=== PATIENT | female | born 1955 | race African-American/Black ===

== ENCOUNTER 2016-11-12 20:24 | Emergency (ER) | payer OTHER ==
[2016-11-12 20:45] VITALS: BMI 20.9
[2016-11-12] MEDS ORDERED: SODIUM CHLORIDE 0.9% 500 ML INFUS.BAG IV ONE ×2 (20:52→23:39)
--- NOTE | 2016-11-12 21:02 | PDOC ---
[id number] No Limitations - History of Present Illness Initial Comments: 11/12/16 22:09 The patient is a 61 year old female with a PMHx of diabetes, HTN, HLD, angina, depression who presents to the ED with fever, vomiting, and muscle aches today. She reports no food or water intake today. She denies taking Motrin or Tylenol for relief. She denies diarrhea, constipation, chest pain, SOB. She denies urinary complaints. PCP: Dr. Juliann Santana <Swathi Salazar - Last Filed: 11/12/16 22:09> <Evangelina Reid - Last Filed: 11/13/16 21:56> - General Chief Complaint: Nausea/Vomiting Stated Complaint: VOMITING/BODY ACHE/LIGHTHEADED Time Seen by Provider: 11/12/16 20:40 Past History <Swathi Salazar - Last Filed: 11/12/16 22:09> - Past Medical History Cardiac Disorders: Yes (ANGINA) Diabetes: Yes HTN: Yes Hypercholesterolemia: Yes Psychiatric Problems: Yes (depression) - Family Disease History Family Disease History: Diabetes: Mother - Immunization History Immunization Up to Date: Yes - Psycho/Social/Smoking Cessation Hx Anxiety: No Suicidal Ideation: No Smoking Status: No Smoking History: Never smoked Have you smoked in the past 12 months: No Number of Cigarettes Smoked Daily: 0 Cigars Per Day: 0 Information on smoking cessation initiated: No Hx Alcohol Use: No Drug/Substance Use Hx: No Substance Use Type: None <Evangelina Reid - Last Filed: 11/13/16 21:56> - Past Medical History Allergies/Adverse Reactions: Allergies Allergy/AdvReac Type Severity Reaction Status Date / Time No Known Drug Allergies Allergy Verified 08/21/16 15:03 lactose AdvReac Verified 08/20/16 20:25 Home Medications: Ambulatory Orders Aspirin [Aspirin EC] 81 mg PO DAILY 07/15/15 Metformin HCl [Glucophage -] 1,000 mg PO BID 07/15/15 Atorvastatin Ca [Lipitor] 20 mg PO HS #30 tablet 12/29/15 Levofloxacin [Levaquin] 500 mg PO DAILY #6 tablet 11/12/16 Review of Systems - Review of Systems Able to Perform ROS?: Yes Comments:: 11/12/16 22:09 GENERAL/CONSTITUTIONAL: + fever. No chills. HEAD, EYES, EARS, NOSE AND THROAT: No change in vision. No ear pain or discharge. No sore throat. CARDIOVASCULAR: No chest pain or shortness of breath. RESPIRATORY: No cough, wheezing, or hemoptysis. GASTROINTESTINAL: + vomiting. No diarrhea or constipation. GENITOURINARY: No dysuria, frequency, or change in urination. MUSCULOSKELETAL: + muscle aches. No joint pain.No neck or back pain. SKIN: No rash NEUROLOGIC: No headache, vertigo, loss of consciousness, or change in strength/ sensation. ENDOCRINE: No increased thirst. No abnormal weight change. HEMATOLOGIC/LYMPHATIC: No anemia, easy bleeding, or history of blood clots. ALLERGIC/IMMUNOLOGIC: No hives or skin allergy. <Swathi Salazar - Last Filed: 11/12/16 22:09> *Physical Exam - Vital Signs Last Vital Signs Temp Pulse Resp BP Pulse Ox 98.8 F 114 H 18 141/82 95 11/12/16 20:42 11/12/16 20:42 11/12/16 20:42 11/12/16 20:42 11/12/16 20:42 - Physical Exam Comments: 11/12/16 22:09 GENERAL: Awake, alert, and fully oriented, in no acute distress HEAD: No signs of trauma EYES: PERRLA, EOMI, sclera anicteric, conjunctiva clear. Left eye cataract. ENT: Auricles normal inspection, hearing grossly normal, nares patent, oropharynx clear without exudates. Moist mucosa NECK: Normal ROM, supple, no lymphadenopathy, JVD, or masses LUNGS: Breath sounds equal, clear to auscultation bilaterally. No wheezes, and no crackles HEART: Tachycardic rate and regular rhythm, normal S1 and S2, no murmurs, rubs or gallops ABDOMEN: Soft, nontender, normoactive bowel sounds. No guarding, no rebound. No masses EXTREMITIES: Normal range of motion, no edema. No clubbing or cyanosis. No cords, erythema, or tenderness NEUROLOGICAL: Cranial nerves II through XII grossly intact. Normal speech, normal gait SKIN: Lipoadenoma on low central back. Warm, Dry, normal turgor, no rashes or lesions noted. <Swathi Salazar - Last Filed: 11/12/16 22:09> - Vital Signs Last Vital Signs Temp Pulse Resp BP Pulse Ox 98.8 F 114 H 18 141/82 95 11/12/16 20:42 11/12/16 20:42 11/12/16 20:42 11/12/16 20:42 11/12/16 20:42 <Evangelina Reid - Last Filed: 11/13/16 21:56> ED Treatment Course - LABORATORY CBC & Chemistry Diagram: 11/12/16 20:20 11/12/16 20:20 - ADDITIONAL ORDERS Additional order review: 11/12/16 20:45 Influenza Types A,B Antigen (ALAYNA) - Final Nasopharyngeal Swab - Final 11/12/16 20:20 RBC 4.15 MCV 89.0 MCHC 33.7 RDW 13.5 MPV 9.8 Neutrophils % 73.6 Lymphocytes % 14.4 D Monocytes % 10.5 H Eosinophils % 0.8 Basophils % 0.7 - Medications Given in the ED: ED Medications Discontinued Medications Generic Name Dose Route Start Last Admin Trade Name Somq PRN Reason Stop Dose Admin Sodium Chloride 1,000 ml 11/12/16 20:52 11/12/16 21:12 Normal Saline - IV 11/12/16 20:53 1,000 ml ONCE ONE Administration <Swathi Salazar - Last Filed: 11/12/16 22:09> - LABORATORY CBC & Chemistry Diagram: 11/12/16 20:20 11/12/16 20:20 <Evangelina Reid - Last Filed: 11/13/16 21:56> Medical Decision Making - Medical Decision Making 11/12/16 21:00 Pt comes with flu like symptoms all day. She ate and drank nothing today. She has DM and HTN. Daughter states that she is usually noncompliant with her meds. Pt is tachycardic and appears weak. Exam is normal. lung sounds are clear. SHe is warm to the touch. Pt took no motrin or tylenol today. She had a flu culture sent from triage. Labs will be checked and pt will be hydrated with 1L NSS. 11/12/16 22:22 Labs are normal. Blood sugar is elevated at 269. SHe is receiving 1L NSS CXR is normal. Flu culture is negative. 11/13/16 21:55 PT IS FEELING BETTER; SHE WAS HYDRATED AND HER FEVER WAS TREATED. SHE STILL REMAINS WITH RAPOD HEART RATE, BUT SHE IS NOT TACHYCARDIC. SHE WILL BE DISCHARGED HOME. DIAGNOSIS: UTI. <Evangelina Reid - Last Filed: 11/13/16 21:56> *DC/Admit/Observation/Transfer - Attestations Scribe Attestion: 11/12/16 22:10 Documentation prepared by Swathi Salazar, acting as medical billing service for Evangelina Reid MD. <Swathi Salazar - Last Filed: 11/12/16 22:09> - Discharge Dispostion Admit: No <Evangelina Reid - Last Filed: 11/13/16 21:56> Diagnosis at time of Disposition: UTI (urinary tract infection), Diabetes - Discharge Dispostion Disposition: HOME Condition at time of disposition: Stable - Prescriptions Prescriptions: Levofloxacin [Levaquin] 500 mg PO DAILY #6 tablet - Referrals Referrals: Juliann Santana MD [Primary Care Provider] - - Patient Instructions Printed Discharge Instructions: DI for Urinary Tract Infection (UTI)
[2016-11-12 21:16] LABS: BASOPHIL 0.7 % (0-2.0); EOSINOPHIL 0.8 % (0-4.5); MCHC 33.7 g/dl (32.0-36.0); MEAN PLT VOLUME 9.8 fl (7.5-11.1); NEUTROPHILS 73.6 % (42.8-82.8); PLATELET COUNT 200 K/MM3 (134-434); RDW 13.5 % (11.6-15.6); WHITE BLOOD COUNT 7.1 K/mm3 (4.0-10.0)
[2016-11-12 22:05] LABS: ANION GAP 11 (8-16); BILIRUBIN,TOTAL 0.8 mg/dL (0.2-1.0); CALCIUM 9.5 mg/dL (8.5-10.1); CO2 28 mmol/L (21-32); CREATININE 0.8 mg/dL (0.55-1.02); GLUCOSE,RANDOM 269 mg/dL (74-106); SGOT/AST 9 U/L (15-37); SGPT/ALT 17 U/L (12-78); TOT PROT 8.4 g/dl (6.4-8.2)
[2016-11-12 22:08] LABS: ALK PHOS 105 U/L (45-117); TROPONIN I < 0.02 ng/ml (0.00-0.05)
[2016-11-12 22:38] LABS: URINE APPEARANCE SLCLOUDY; URINE BILIRUBIN NEGATIVE (NEGATIVE); URINE COLOR LTYELLOW; URINE GLUCOSE (UA) 3+ (NEGATIVE); URINE KETONE 1+ (NEGATIVE); URINE NITRITE NEGATIVE (NEGATIVE); URINE PROTEIN NEGATIVE (NEGATIVE); URINE UROBILINOGEN NEGATIVE E.U./dl (0.2-1.0)
[2016-11-12 22:51] LABS: URINE BACTERIA MANY /hpf (NONE SEEN); URINE BLOOD 1+ (NEGATIVE); URINE LEUK ESTERASE 3+ (NEGATIVE); URINE RBC 3 /hpf (0-3); URINE WBC 72 /hpf (3-5)
[2016-11-12 22:52] LABS: URINE MUCUS MANY
[2016-11-12] MEDS ORDERED: LEVOFLOXACIN 500 MG IVPB 100 ML IVPB ONE ×2 (23:17→23:23)
[2016-11-12] MEDS ORDERED: ACETAMINOPHEN 325 MG TABLET (FP) PO ONE (23:39)
[2016-11-12] MEDS ORDERED: IBUPROFEN 600 MG TABLET (FP) PO ONE (23:39)
[2016-11-13] MEDS ORDERED: IBUPROFEN 600 MG TABLET (FP) PO ONE (00:02)
[2016-11-13] MEDS ORDERED: ACETAMINOPHEN 325 MG TABLET (FP) ONE (00:02)
[2016-11-13] MEDS ORDERED: metFORMIN HCL 500 MG TABLET (FP) PO ONE (00:16)
[2016-11-13] MEDS ORDERED: metFORMIN HCL 500 MG TABLET (FP) ONE (00:19)
[2016-11-13 01:20] VITALS: BP 124/77; PULSE 102; TEMP 98.3
== END 2016-11-13 01:21 | disposition home or self-care (01) ==
LOC: JER 20:24 → SUPCPDRO 20:24 → JER 11-13 01:21
DX: N39.0 Urinary tract infection, site not specified (principal); I20.9 Angina pectoris, unspecified; I10 Essential (primary) hypertension; E11.9 Type 2 diabetes mellitus without complications; Z79.84 Long term (current) use of oral hypoglycemic drugs; E78.00 Pure hypercholesterolemia, unspecified; F32.9 Major depressive disorder, single episode, unspecified
CPT/HCPCS: 36415; 71020-TC; 80053; 81003; 81015; 82550; 84484; 85025; 87804; 96365; 99283-25

== ENCOUNTER 2017-07-31 23:35 | Observation (INO) | payer OTHER ==
--- NOTE | 2017-08-01 01:25 | PDOC ---
History of Present Illness - General History Source: Patient Exam Limitations: No Limitations - History of Present Illness Initial Comments: 08/01/17 02:45 Patient is a 61 year old female with a significant past medical history of Diabetes - non-compliant with medications (does not take levemir, infrequently takes metformin), HTN, h/o, Angina, Depression, Hyperlipidemia, cataracts who presents to the ED with complaints of nausea and vomiting that began tonight at 8pm. As per patient's daughter, patient was found at home at 8pm and was notably unsteady and weak. Patient's daughter states patient fell out of bed while trying to get out but states patient did not hit her head or lose consciousness. She reports patient was experiencing nausea and vomited x3 after walking to the bathroom. Patient reports experiencing intermittent episodes of dizziness and headache secondary to vomiting. Patients duaghter states patient is noncompliant with her medication. Denies chest pain, SOB. Denies contact with sick individuals, out of state travel. Denies fever, chills. Denies any other symptoms. Allergies: Lactose adverse reaction. Social history: No smoking. Social Drinker. No illicit drugs. Surgical history: Left knee surgery PMD: Dr. Juliann Santana. <Yunior Almaguer - Last Filed: 08/01/17 02:45> <Jett Jay - Last Filed: 08/01/17 04:10> - General Chief Complaint: Nausea/Vomiting Stated Complaint: FATIGUE Time Seen by Provider: 08/01/17 01:03 NIH Stroke Scale - Last Known Well Date/Time & Onset Date Last Known Well: 07/31/17 Time Last Known Well: 19:00 - Initial Evaluation Level of consciousness: Alert Ask patient the month and their age: Answers both correctly Ask patient to open & close eyes; make fist and let go: Obeys both correctly Best gaze (horizontal eye movement): Normal Visual field testing: No visual field loss Facial paresis (Show teeth/raise eyebrows/close eyes tight): Minor paralysis ( flattened nasolabial fold, asymmetry on smiling) Motor Function: Left Arm: Normal Motor Function: Right Arm: Normal (extends arm 90 (or 45) degrees for 10 seconds without drift Motor Function: Left Leg: Normal (extends leg 30 degrees for 5 seconds without drift) Motor Function: Right Leg: Drift Limb Ataxia: No ataxia Sensory(Use pinprick test arms,legs,trunk,face/side to side): Normal Best language (Describe picture, name items, read sentences): No Aphasia Dysarthria (read several words): Normal articulation Extinction and Inattention: No abnormality - Total Score NIH Stroke Scale Score: 2 <Jett Jay - Last Filed: 08/01/17 04:10> tPA Exclusion checklist 3-4.5h - Thrombolytic Therapy Candidate Is patient eligible for thrombolytic therapy: No - Relative Exclusion Criteria 3-4.5 hr Rapid improvement: Yes - Ineligibility reason(s) Reasons No tPA given: Outside of window - delayed arrival <Jett Jay - Last Filed: 08/01/17 04:10> Past History <Yunior Almaguer - Last Filed: 08/01/17 02:45> - Past Medical History Cardiac Disorders: Yes (ANGINA) Diabetes: Yes HTN: Yes Hypercholesterolemia: Yes Psychiatric Problems: Yes (depression) - Family Disease History Family Disease History: Diabetes: Mother - Immunization History Immunization Up to Date: Yes - Suicide/Smoking/Psychosocial Hx Smoking Status: No Smoking History: Never smoked Have you smoked in the past 12 months: No Number of Cigarettes Smoked Daily: 0 Cigars Per Day: 0 Information on smoking cessation initiated: No Hx Alcohol Use: No Drug/Substance Use Hx: No Substance Use Type: None <Jett Jay - Last Filed: 08/01/17 04:10> - Past Medical History Allergies/Adverse Reactions: Allergies Allergy/AdvReac Type Severity Reaction Status Date / Time No Known Drug Allergies Allergy Verified 08/01/17 00:36 lactose AdvReac Verified 08/01/17 00:36 Home Medications: Ambulatory Orders Aspirin [ASA -] 81 mg PO DAILY 08/01/17 Atorvastatin Ca [Lipitor] 10 mg PO HS 08/01/17 Metformin HCl [Metformin HCl ER] 1,000 mg PO DAILY 08/01/17 Review of Systems - Review of Systems Constitutional: No: Chills, Fever HEENTM: No: Recent change in vision Respiratory: No: Cough, Shortness of Breath Cardiac (ROS): Yes: Lightheadedness. No: Chest Pain ABD/GI: Yes: Nausea, Vomiting. No: Constipated, Diarrhea Musculoskeletal: Yes: Muscle Weakness Neurological: Yes: Headache, Weakness, Ataxia All Other Systems: Reviewed and Negative <Jett Jay - Last Filed: 08/01/17 04:10> *Physical Exam - Vital Signs Last Vital Signs Temp Pulse Resp BP Pulse Ox 98.3 F 101 H 20 128/78 98 08/01/17 00:37 08/01/17 00:37 08/01/17 00:37 08/01/17 00:37 08/01/17 00:37 - Physical Exam Comments: 08/01/17 02:45 GENERAL: +Last known well 7pm. The patient is awake, alert, and fully oriented, in no acute distress. HEAD: +Slight facial asymmetry. Normal with no signs of trauma. EYES: Pupils equal, round and reactive to light, extraocular movements intact, sclera anicteric, conjunctiva clear with no pallor. ENT: Ears normal, nares patent, oropharynx clear without exudates. Moist mucous membranes. NECK: Normal range of motion, supple without lymphadenopathy, JVD, or masses. LUNGS: Breath sounds equal, clear to auscultation bilaterally. No wheeze/ crackles. HEART: +Slightly tachycardic. Regular rate,normal S1 and S2 without murmur or rub. ABDOMEN: Soft/nontender/nondistended. BS wnl. No guarding or rebound. No palpable masses. No hepatosplenomegaly. EXTREMITIES: +4./5 strength Right lower extremity. Normal range of motion, no edema. No clubbing or cyanosis. No cords, erythema, or tenderness. NEUROLOGICAL: +Slightly shuffled gait. Cranial nerves II through XII grossly intact. Normal speech PSYCH: Normal mood, normal affect. SKIN: Warm, Dry, normal turgor, no rashes or lesions noted. <Yunior Almaguer - Last Filed: 08/01/17 02:45> - Vital Signs Last Vital Signs Temp Pulse Resp BP Pulse Ox 98.3 F 101 H 20 128/78 98 08/01/17 00:37 08/01/17 00:37 08/01/17 00:37 08/01/17 00:37 08/01/17 00:37 <Jett Jay - Last Filed: 08/01/17 04:10> Heart Score/ECG Review #1 ECG reviewed & interpreted by me at: 01:42 General ECG Interpretation: Sinus Rhythm, Normal Rate (104), Normal Intervals ( qtc 449), No acute ischemic changes (T-wave flattening in 1 and aVL, no acute ST changes.) <Jett Jay - Last Filed: 08/01/17 04:10> ED Treatment Course - LABORATORY CBC & Chemistry Diagram: 08/01/17 01:53 08/01/17 01:53 - ADDITIONAL ORDERS Additional order review: Laboratory Results 08/01/17 08/01/17 01:50 01:24 PT with INR 11.10 INR 0.98 Urine Color Straw Urine Appearance Slcloudy Urine pH 6.0 Ur Specific [place] 1.029 Urine Protein Negative Urine Glucose (UA) 3+ H Urine Ketones Negative Urine Blood Negative Urine Nitrite Negative Urine Bilirubin Negative Urine Urobilinogen Negative 08/01/17 01:53 RBC 4.40 MCV 92.2 MCHC 33.7 RDW 13.6 MPV 10.0 Neutrophils % 65.9 Lymphocytes % 28.1 D Monocytes % 4.2 Eosinophils % 0.7 Basophils % 1.1 <Yunior Almaguer - Last Filed: 08/01/17 02:45> - LABORATORY CBC & Chemistry Diagram: 08/01/17 01:53 08/01/17 01:53 - RADIOLOGY Radiology Studies Ordered: Category Date Time Status HEAD CT (STROKE) [CT] Stat CT Scan 08/01/17 01:24 Ordered CHEST PA & LAT [RAD] Stat Radiology 08/01/17 01:25 Ordered <Jett Jay - Last Filed: 08/01/17 04:10> Medical Decision Making - Critical Care Time Total Critical Care Time (minutes): 30 Critical Care Statement: The care of this patient involved high complexity decision making to prevent further life threatening deterioration of the patient 's condition and/or to evaluate & treat vital organ system(s) failure or risk of failure. - Medical Decision Making 08/01/17 02:08 A portion of this note was documented by scribe services under my direction. I have reviewed the details of the note, within reason, and agree with the documentation with the following case summary and management plan written by me. 61-year-old female with history of hypertension and diabetes, no noncompliant with her medications presents brought in by her daughter with several complaints. Patient was last known well around 7 PM, found by her daughter around 8 PM lying in bed, feeling unwell complaining predominantly of dizziness , speech disturbance as per daughter described as fumbling for words but otherwise clear particularly she did, difficulty ambulating with right-sided weakness, and complaint of headache with vomiting 2. Since then, most of the symptoms have improved but now has persistent nausea with headache and some difficulty walking. Vitals as noted, blood pressure is normal Alert seated in stretcher, speaking full sentences Slight right facial asymmetry, slight right leg weakness, shuffling gait Remainder of exam is normal 61-year-old female with hypertension and diabetes but no noncompliance presents with speech/gait/motor disturbance CONCERNING for TIA/CVA. Last known well around 7 PM, so out of window for thrombolysis or code reactivation at this time. Her symptoms compared to report seemed to have significantly improved, now with only subtle right facial and right leg weakness. There was no report of complete hemiparesis to suggest large vessel occlusion that would be amenable to endovascular therapy. Stroke protocol initiated No need for emergent blood pressure control as the patient is currently normotensive Zofran for nausea Admission 08/01/17 03:13 Labs notable for elevated triglycerides, normal troponin. CT head without acute hemorrhage or infarct. Clinically unchanged, given aspirin for presumed TIA, will admit for further stroke evaluation. 08/01/17 04:09 Accepted for obs stroke by Dr. Albarran, signout given to Dr. Trejo. <Jett Jay - Last Filed: 08/01/17 04:10> *DC/Admit/Observation/Transfer - Attestations Scribe Attestion: 08/01/17 02:46 Documentation prepared by Yunior Almaguer, acting as certified medical technician for Jett Jay MD, MD/DO. <Yunior Almaguer - Last Filed: 08/01/17 02:45> - Discharge Dispostion Admit: Yes <Jett Jay - Last Filed: 08/01/17 04:10> Diagnosis at time of Disposition: Ataxia TIA (transient ischemic attack) Qualifiers: Transient cerebral ischemia type: unspecified Qualified Code(s): G45.9 - Transient cerebral ischemic attack, unspecified - Discharge Dispostion Condition at time of disposition: Fair - Referrals Referrals: Juliann Santana MD [Primary Care Provider] - - Patient Instructions - Post Discharge Activity
[2017-08-01 02:24] LABS: BASO % 1.1 % (0-2.0); EOS % 0.7 % (0-4.5); MCH 31.1 pg (25.7-33.7); MCHC 33.7 g/dl (32.0-36.0); MEAN CELL VOLUME 92.2 fl (80-96); NEUT % 65.9 % (42.8-82.8); PLATELET COUNT 198 K/MM3 (134-434); RDW 13.6 % (11.6-15.6); WHITE BLOOD COUNT 10.7 K/mm3 (4.0-10.0)
[2017-08-01 02:29] LABS: URINE APPEARANCE SLCLOUDY; URINE BILIRUBIN NEGATIVE (NEGATIVE); URINE BLOOD NEGATIVE (NEGATIVE); URINE COLOR STRAW; URINE GLUCOSE (UA) 3+ (NEGATIVE); URINE KETONE NEGATIVE (NEGATIVE); URINE NITRITE NEGATIVE (NEGATIVE); URINE PROTEIN NEGATIVE (NEGATIVE); URINE UROBILINOGEN NEGATIVE mg/dL (0.2-1.0)
[2017-08-01 02:36] LABS: INR 0.98 (0.82-1.09); PROTHROMBIN TIME (PATIENT) 11.1 SEC (9.98-11.88)
[2017-08-01 02:48] LABS: ALBUMIN 4.2 g/dl (3.4-5.0); ANION GAP 12 (8-16); CALCIUM 9.7 mg/dL (8.5-10.1); CHOLESTEROL 277 mg/dL (50-200); CO2 26 mmol/L (21-32); CPK 131 IU/L (26-192); CREATININE 1.1 mg/dL (0.55-1.02); SGOT/AST 15 U/L (15-37); SGPT/ALT 22 U/L (12-78)
[2017-08-01 02:52] LABS: ALK PHOS 127 U/L (45-117); BILIRUBIN,TOTAL 0.7 mg/dL (0.2-1.0); TOT PROT 9.1 g/dl (6.4-8.2); TROPONIN I < 0.02 ng/ml (0.00-0.05)
[2017-08-01 02:55] LABS: GLUCOSE,RANDOM 428 mg/dL (74-106)
[2017-08-01] MEDS ORDERED: ASPIRIN 325 MG TABLET PO ONE (03:14)
[2017-08-01] MEDS ORDERED: ASPIRIN COATED 81 MG TABLET.EC ONE (03:25)
[2017-08-01] MEDS ORDERED: ATORVASTATIN CA 80 MG TABLET (FP) PO ONE (04:12)
[2017-08-01] MEDS ORDERED: INSULIN (NOVOLOG) ASPART 100 UNITS/ML 10ML VIAL SQ ONE (04:14)
--- NOTE | 2017-08-01 04:18 | HP ---
CHIEF COMPLAINT: n/v PCP: Dr. Juliann Diaz HISTORY OF PRESENT ILLNESS: 61F w/ hx of HTN, HLD, IDDM, angina, depression, and cataracts who presents with nausea and emesis since this evening. Per patient, she was in her USOH until this evening when she had 4 episodes of NBNB emesis leading to lightheadedness and a headache. She reports that she was laying in bed during this when her daughter came home who noticed that she looked ill. When the pt got out of bed to walk to the bathroom, pt reports that she fell extremely lightheaded and weak causing her to slump down, but her daughter caught her before she fell to the ground. There was no trauma to any part of her body and no LOC. Pt states that her daughter noticed that she was talking incoherently during this episode, and this resolved in several minutes. She denies any focal weakness or numbness, fever, chills, sick contacts, recent travel, consuming spoiled or uncooked foods, chest pain, SOB, abdominal pain, diarrhea, constipation, and dysuria. She endorses polyuria, polydipsia, exertional dyspnea (can walk 1 flight of stairs and 3 city blocks). Pt reports being non-compliant with her medications. She denies any hx of strokes. ER course was notable for: (1) physical exam significant for facial asymmetry and RLE weakness (2) pt given ASA (3) labs, imaging Recent Travel: denies PAST MEDICAL HISTORY: HTN, HLD, IDDM, angina, depression, and cataracts PAST SURGICAL HISTORY: L foot surgery Social History: Smoking: denies Alcohol: social Drugs: denies Family History: mom- DM maternal aunt- DM Allergies No Known Drug Allergies Allergy (Verified 08/01/17 00:36) lactose Adverse Reaction (Verified 08/01/17 00:36) HOME MEDICATIONS: Home Medications Medication Instructions Recorded Aspirin [ASA -] 81 mg PO DAILY 08/01/17 Atorvastatin Ca [Lipitor] 10 mg PO HS 08/01/17 Metformin HCl [Metformin HCl ER] 1,000 mg PO DAILY 08/01/17 REVIEW OF SYSTEMS CONSTITUTIONAL: Absent: fever, chills, diaphoresis, generalized weakness, malaise, loss of appetite, weight change HEENT: Absent: rhinorrhea, nasal congestion, throat pain, throat swelling, difficulty swallowing, mouth swelling, ear pain, eye pain, visual changes CARDIOVASCULAR: Absent: chest pain, syncope, palpitations, irregular heart rate, peripheral edema Present: lightheadedness RESPIRATORY: Absent: cough, shortness of breath, orthopnea, wheezing, stridor, hemoptysis Present: dyspnea with exertion GASTROINTESTINAL: Absent: abdominal pain, abdominal distension, diarrhea, constipation, melena, hematochezia Present: nausea, vomiting GENITOURINARY: Absent: dysuria, urgency, hesitancy, hematuria, flank pain, genital pain Present: frequency MUSCULOSKELETAL: Absent: myalgia, arthralgia, joint swelling, back pain, neck pain SKIN: Absent: rash, itching, pallor HEMATOLOGIC/IMMUNOLOGIC: Absent: easy bleeding, easy bruising, lymphadenopathy, frequent infections ENDOCRINE: Absent: unexplained weight gain, unexplained weight loss, heat intolerance, cold intolerance NEUROLOGIC: Absent: focal weakness or paresthesias, seizure, mental status changes, bladder or bowel incontinence Present: dizziness, headache, unsteady gait PSYCHIATRIC: Absent: anxiety, depression, suicidal or homicidal ideation, hallucinations. PHYSICAL EXAMINATION Vital Signs - 24 hr 08/01/17 00:37 Temperature 98.3 F Pulse Rate 101 H Respiratory 20 Rate Blood Pressure 128/78 O2 Sat by Pulse 98 Oximetry (%) GENERAL: Awake, alert, and fully oriented, in no acute distress. HEAD: Normal with no signs of trauma. EYES: Pupils equal, round and reactive to light, extraocular movements intact, sclera anicteric, conjunctiva clear. No lid lag. EARS, NOSE, THROAT: Ears normal, nares patent, oropharynx clear without exudates. Moist mucous membranes. NECK: Normal range of motion, supple without lymphadenopathy, JVD, or masses. LUNGS: Breath sounds equal, clear to auscultation bilaterally. No wheezes, and no crackles. No accessory muscle use. HEART: tachycardic, normal rhythm, diastolic murmur heard loudest over left upper sternal border ABDOMEN: Soft, nontender, not distended, normoactive bowel sounds, no guarding, no rebound, no masses. No hepatomegaly or splenomegaly. MUSCULOSKELETAL: Normal range of motion at all joints. No bony deformities or tenderness. No CVA tenderness. UPPER EXTREMITIES: 2+ pulses, warm, well-perfused. No cyanosis. No clubbing. No peripheral edema. LOWER EXTREMITIES: 2+ pulses, warm, well-perfused. No calf tenderness. No peripheral edema. NEUROLOGICAL: Cranial nerves II-XII intact, no facial asymmetry, tongue midline. AAOx3. Normal speech. strength 4/5 in b/l LE hip extension and knee extension. All other muscles 5/5. sensory function to touch intact and equal b/ l. no arm drift. no dysdiadochokinesia. finger to nose test normal b/l. PSYCHIATRIC: Cooperative. Good eye contact. Appropriate mood and affect. SKIN: Warm, dry, normal turgor, no rashes or lesions noted, normal capillary refill. Laboratory Results - last 24 hr 08/01/17 08/01/17 08/01/17 01:24 01:50 01:53 WBC 10.7 H D RBC 4.40 Hgb 13.7 D Hct 40.5 MCV 92.2 MCH 31.1 MCHC 33.7 RDW 13.6 Plt Count 198 MPV 10.0 Neutrophils % 65.9 Lymphocytes % 28.1 D Monocytes % 4.2 Eosinophils % 0.7 Basophils % 1.1 PT with INR 11.10 INR 0.98 Sodium Potassium Chloride Carbon Dioxide Anion Gap BUN Creatinine Creat Clearance w eGFR Random Glucose Calcium Total Bilirubin AST ALT Alkaline Phosphatase Creatine Kinase Troponin I Total Protein Albumin Triglycerides Cholesterol Total LDL Cholesterol HDL Cholesterol Urine Color Straw Urine Appearance Slcloudy Urine pH 6.0 Ur Specific [place] 1.029 Urine Protein Negative Urine Glucose (UA) 3+ H Urine Ketones Negative Urine Blood Negative Urine Nitrite Negative Urine Bilirubin Negative Urine Urobilinogen Negative 08/01/17 01:53 WBC RBC Hgb Hct MCV MCH MCHC RDW Plt Count MPV Neutrophils % Lymphocytes % Monocytes % Eosinophils % Basophils % PT with INR INR Sodium 132 L Potassium 4.5 Chloride 94 L Carbon Dioxide 26 Anion Gap 12 BUN 16 D Creatinine 1.1 H D Creat Clearance w eGFR 50.33 Random Glucose 428 H* D Calcium 9.7 Total Bilirubin 0.7 AST 15 D ALT 22 D Alkaline Phosphatase 127 H D Creatine Kinase 131 Troponin I < 0.02 Total Protein 9.1 H Albumin 4.2 Triglycerides 206 H D Cholesterol 277 H D Total LDL Cholesterol 190 H HDL Cholesterol 60 Urine Color Urine Appearance Urine pH Ur Specific [place] Urine Protein Urine Glucose (UA) Urine Ketones Urine Blood Urine Nitrite Urine Bilirubin Urine Urobilinogen CT head: no acute hemorrhage EKG: sinus tachycardia, QTc of 449 ASSESSMENT/PLAN: 61F w/ hx of DM, HTN, angina, depression, HLD, and cataracts who presented with N/V, lightheadedness, headache, and fall who was found to have facial droop and RLE weakness in ED, tachycardia, mild leukocytosis w/o left shift, mild hyponatremia, and hyperglycemia. #neurologic sxs -R/O CVA/TIA -head ct shows no acute hemorrhage -EKG shows sinus tachycardia -neurology on board, Dr. Gayle, f/u recs -pt given ASA 325 and lipitor 80 -f/u TTE, carotid doppler, MRI brain w/o contrast, a1c, lipid panel, TFT, troponin -obtain prior carotid doppler from PCP -speech and swallow consulted, f/u recs -neuro checks q4h -monitor BP #hyponatremia -Na of 132 -gentle hydration -trend sodium #DM -pt reported to be non-compliant with home meds -glucose level of 428 here -BGM and ISS ACHS -f/u a1c #mild CELSO -unclear etiology -creatinine of 1.1 -gentle hydration -trend creatinine -f/u urine sodium and creatinine, calculate FeNa #elevated protein gap -gap of 4.9 -unclear etiology -monitor -normal calcium #nausea -zofran PRN #HTN -pt does not know home meds -monitor #HLD -on lipitor 10 at home -lipitor 80 given in hospital #hx of angina -continue ASA #FEN/ppx -gentle hydration -replete Na and Cl -NPO for now pending speech and swallow -no GI ppx indicated -SCDs #Dispo- admit to observation telemetry #Confirm all home meds as pt unable to repeat all home meds -Dariel Arias MD PGY1 Visit type - Emergency Visit Emergency Visit: Yes ED Registration Date: 08/01/17 Care time: The patient presented to the Emergency Department on the above date and was hospitalized for further evaluation of their emergent condition. - New Patient This patient is new to me today: Yes Date on this admission: 08/01/17 - Critical Care Critical Care patient: No
[2017-08-01] MEDS ORDERED: ONDANSETRON 4 MG/2 ML VIAL IVPUSH PRN ×2 (04:36→05:09)
--- NOTE | 2017-08-01 04:49 | PN ---
Teaching Attending Note Name of Resident: Dariel Arias ATTENDING PHYSICIAN STATEMENT I saw and evaluated the patient. I reviewed the resident's note and discussed the case with the resident. I agree with the resident's findings and plan as documented. SUBJECTIVE: 61 F wih pmhx of DM(non-complaint), CVA/TIA sveral years ago,HTN, angina, Depression, cataracts, hld, who was found at home confused by daughter. She states her mother was nausous and vomited food/bile X3, Daughter witnessed her falling out of bed, and notes she did not hit her head. Pt. states she does not take any of her meds regularly. Daughter also noted her right hand was weak. No chest pain or pressure. No headaches or dizziness. No fevers. OBJECTIVE: Physical: VS: Vital Signs Period Temp Pulse Resp BP Sys/Hidalgo Pulse Ox Last 24 Hr 98.3 F 101 20 128/78 98 GEN: NAD, AA0X3, Able to speak full sentences HEENT: NCAT, PERRL throat without erythema or exudates CARD: RRR S1,S2 RESP: CTAB ABD: BSx4, NTD to palpation EXT: - C/C/E NEURO: MS +5/5, CN II- XII intact CBCD WBC 10.7 K/mm3 (4.0-10.0) H D 08/01/17 01:53 RBC 4.40 M/mm3 (3.60-5.2) 08/01/17 01:53 Hgb 13.7 GM/dL (10.7-15.3) D 08/01/17 01:53 Hct 40.5 % (32.4-45.2) 08/01/17 01:53 MCV 92.2 fl (80-96) 08/01/17 01:53 MCHC 33.7 g/dl (32.0-36.0) 08/01/17 01:53 RDW 13.6 % (11.6-15.6) 08/01/17 01:53 Plt Count 198 K/MM3 (134-434) 08/01/17 01:53 MPV 10.0 fl (7.5-11.1) 08/01/17 01:53 CMP Sodium 132 mmol/L (136-145) L 08/01/17 01:53 Potassium 4.5 mmol/L (3.5-5.1) 08/01/17 01:53 Chloride 94 mmol/L (98-107) L 08/01/17 01:53 Carbon Dioxide 26 mmol/L (21-32) 08/01/17 01:53 Anion Gap 12 (8-16) 08/01/17 01:53 BUN 16 mg/dL (7-18) D 08/01/17 01:53 Creatinine 1.1 mg/dL (0.55-1.02) H D 08/01/17 01:53 Creat Clearance w eGFR 50.33 (>60) 08/01/17 01:53 Random Glucose 428 mg/dL (74-106) H* D 08/01/17 01:53 Calcium 9.7 mg/dL (8.5-10.1) 08/01/17 01:53 Total Bilirubin 0.7 mg/dL (0.2-1.0) 08/01/17 01:53 AST 15 U/L (15-37) D 08/01/17 01:53 ALT 22 U/L (12-78) D 08/01/17 01:53 Alkaline Phosphatase 127 U/L (45-117) H D 08/01/17 01:53 Total Protein 9.1 g/dl (6.4-8.2) H 08/01/17 01:53 Albumin 4.2 g/dl (3.4-5.0) 08/01/17 01:53 CARDIAC ENZYMES Creatine Kinase 131 IU/L (26-192) 08/01/17 01:53 Troponin I < 0.02 ng/ml (0.00-0.05) 08/01/17 01:53 EKG: Sinus Rhythm 104, qtc 449, no St-t changes Home Medications Medication Instructions Recorded Aspirin [ASA -] 81 mg PO DAILY 08/01/17 Atorvastatin Ca [Lipitor] 10 mg PO HS 08/01/17 Metformin HCl [Metformin HCl ER] 1,000 mg PO DAILY 08/01/17 ASSESSMENT AND PLAN: 61 F wih pmhx of DM(non-complaint), CVA/TIA sveral years ago,HTN, angina, Depression, cataracts, hld,who presents with right arm weakness being admitted for CVA/TIA. 1.) Right Arm Weakness - RO CVA/TIA - ASA - Statin- High Dose - Echo/ (carotid done outpt <2 months ago) - Trend Trop/Ekg - MRI Brain wo con - TSH - Monitor on tele - Lipid panel/ A1C 2.) Uncontrolled DM - FS - RAISS - Diabetic diet - A1c - C/W Metformin 3.) HLD - High dose Statin 4.) Hyponatremia - Mild - Trend 5.) Dvt Ppx - SCDs Place in Obs-Tele
[2017-08-01] MEDS: INSULIN SLIDING SCALE (NOVOLOG) 1 VIAL SQ SCH ×5 (05:00→22:02)
[2017-08-01] MEDS ORDERED: ASPIRIN 325 MG TABLET ONE (05:28)
[2017-08-01] MEDS ORDERED: INSULIN (NOVOLOG) ASPART 100 UNITS/ML 10ML VIAL ONE ×2 (05:29→13:01)
[2017-08-01] MEDS ORDERED: ATORVASTATIN CA 80 MG TABLET (FP) ONE (05:29)
[2017-08-01] MEDS: SODIUM CHLORIDE 1,000 ML IV SCH ×2 (05:50→18:42)
[2017-08-01 09:42] LABS: BASO % 0.7 % (0-2.0); EOS % 1.3 % (0-4.5); MCH 30.3 pg (25.7-33.7); MCHC 33.3 g/dl (32.0-36.0); MEAN PLT VOLUME 9.4 fl (7.5-11.1); NEUT % 43.7 % (42.8-82.8); PLATELET COUNT 251 K/MM3 (134-434); RDW 13.2 % (11.6-15.6)
[2017-08-01] MEDS ORDERED: ASPIRIN 81 MG CHEWABLE TABLETS PO SCH (10:00)
[2017-08-01 10:10] LABS: ALBUMIN 3.6 g/dl (3.4-5.0); ANION GAP 7 (8-16); CALCIUM 9.2 mg/dL (8.5-10.1); CO2 29 mmol/L (21-32); CREATININE 0.7 mg/dL (0.55-1.02); GLUCOSE,RANDOM 88 mg/dL (74-106); SGOT/AST 8 U/L (15-37); SGPT/ALT 18 U/L (12-78)
[2017-08-01 10:15] LABS: ALK PHOS 97 U/L (45-117); BILIRUBIN,TOTAL 0.6 mg/dL (0.2-1.0); TOT PROT 7.8 g/dl (6.4-8.2); TROPONIN I < 0.02 ng/ml (0.00-0.05)
[2017-08-01 10:45] LABS: URINE LEUK ESTERASE 1+ (NEGATIVE)
[2017-08-01 12:39] LABS: YEAST MANY
[2017-08-01 13:10] VITALS: BMI 23.8
--- NOTE | 2017-08-01 15:21 | CONSULT ---
Admitting History and Physical - Primary Care Physician PCP: Shirlene Wall - Admission History of Present Illness: Per EMR: 61F w/ hx of DM, HTN, angina, depression, HLD, and cataracts who presented with N/V, lightheadedness, headache, and fall who was found to have facial droop and RLE weakness in ED, tachycardia, mild leukocytosis w/o left shift, mild hyponatremia, and hyperglycemia. 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 (chronic intermittent lightheadedness (x 1 year)) Cardiovascular: Yes: CAD, HTN, Hyperlipdemia, Other (angina) Pulmonary: No: Asthma, Bronchitis, Cancer, COPD, O2 Dependent, Pneumonia, Previously Intubated, Pulmonary Embolus, Pulmonary Fibrosis, Sleep Apnea, Other Psych: Yes: Depression ENT: Yes: Other (blind left eye) Endocrine: Yes: Diabetes Mellitus - Past Surgical History Past Surgical History: Yes: None - Smoking History Smoking history: Never smoked Have you smoked in the past 12 months: No Aproximately how many cigarettes per day: 0 - Alcohol/Substance Use Hx Alcohol Use: No History - Admission Reason For Visit: ATAXIA, TIA (STROKE FLOOR ADMISSION) - Diagnostics X-ray: Report Reviewed CT Scan: Report Reviewed MRI: Report Reviewed (m/v changes) - General Mental Status: Alert and Oriented, Awake and Alert, Able to Follow Commands Attention: Intact - Hearing Hearing: Normal Speech Evaluation - Communication Primary Language: AMHARIC Communication: Yes: Within Normal Limits Oral Expression Ability: Yes: No Impairment - Speech Production Able to Make Needs Known: Yes: WNL Intelligibility: Yes: WNL - Speech Characteristics Voice Loudness: Normal Voice Pitch: Yes: Normal Voice Phonatory-based Quality: Yes: Normal Speech Pattern: Normal Speech Clarity: < 100% Nasal Resonance: Normal Articulation: Yes: Precise Rate of Speech: Intact - Language/Auditory Comprehension Follows: Yes: 2 Stage Simple Commands - Language/Verbal Expression Able to Respond to Simple Queries: Yes: WNL Able to Communicate Wants and Needs: Yes: WNL Functional Communication Status: Yes: WNL Attention: Yes: Intact - Memory/Perception intermediate card tender Memory: Yes: WNL Short Term Memory: Yes: WNL - Swallow Evaluation/Bedside Assessment Current Nutritional Intake: Regular (tolerated lunch), Thin Liquids Oral Secretions: Yes: WFL Dentition: Yes: Adequate (lower), Edentulous (upper) Facial Symmetry at Rest: Symmetrical Facial Symmetry on Retraction: Symmetrical Against Resistance Closing: Normal Pucker Lips: Normal Smile: Normal Lingual Movement: Deviates Left (mild) Lingual Speed of Movement: Normal Lingual Movement Strgth Against Opposition: Normal Lingual Movement Characteristics: Normal Velopharyngeal Movement: Normal Laryngeal Elevation: WFL Laryngeal Movement: Able to Palpate Rate of Intake: WFL Bolus Size: WFL Labial Seal: WFL Chewing: Impaired (limited due to missing dentition) Oral Prep Time: Increased A-P Transit: WFL Pocketing: None Timing of Swallow: WFL Coughing/Throat Clear: No Change in Voice: No Recommendations - Speech Evaluation, Impression/Plan Impression: Sp/language/swallowing/cognition intact - Dysphagia Impressions/Plan Dysphagia Impressions: Mild Impairment (mastication limited due to missing dentition.) *Silent aspiration: cannot be R/O at bedside Recommendations: Neuro Consult (pending) - Recommendations Diet Consistency: Regular (soft, easy to chew. Chopped meats.) Medication Administration: Whole with water Liquids: Thin Liquids
--- NOTE | 2017-08-01 17:28 | EKG ---
Test Reason : Blood Pressure : / mmHG Vent. Rate : 104 BPM Atrial Rate : 104 BPM P-R Int : 170 ms QRS Dur : 076 ms QT Int : 342 ms P-R-T Axes : 068 030 054 degrees QTc Int : 449 ms SINUS TACHYCARDIA POSSIBLE LEFT ATRIAL ENLARGEMENT NONSPECIFIC T WAVE ABNORMALITY ABNORMAL ECG WHEN COMPARED WITH ECG OF 15-AUG-2016 07:52, NO SIGNIFICANT CHANGE WAS FOUND Confirmed by WALTER CASILLAS MD ([id number]) on 08/01/2017 5:28:05 PM Referred By: Confirmed By:WALTER CASILLAS MD
--- NOTE | 2017-08-01 21:03 | CONSULT ---
Consult - text type - Consultation Consultation Note: NEUROLOGY CONSULTATION is greatly appreciated: This 61 yo RH woman with h/o HTN, DN, Chol and ASHD is said to be s/p "CVA/TIA. " Maintained on Atorvastatin, Insulins, Metformen but is noted to be non- compliant. Admitted after falling out of bed this morning and being found on floor by family with c/o Headache, dizziness, nausea and vomiting. In ER Xecdpes=496 mg%, Ibyo=884. WBC=10.7 K and UA sig for [address] of head (reviewed): Unremarkable. MRI of brain (reviewed): Cavum septum pellucidum; mild atrophy; diffuse, subcortical microvascular leukoencephalopathy. Carotid duplex dopplers: Moderate B/L plaque without significant hemodynamic changes. Now, Nausea has resolved. Still feels mild, pressing headache and is unsure on her feet. [place]: No bruits. Cor: Reg No evidence of external head trauma. Multiple BP's are all 150/90 NEURO: Awake alert. Ox 3. Fluent speech CN II-XII: normal without Nystagmus. Motor: No drift or tremor. Normal strength, bulk tone. Normal reflexes except absent AJ's. Toes downgoing. Coord: Normal FTN and HTS testing B/L. Sensory: Reduced vibration in the feet. Gait: Sl wide-based and shortened strides. IMP: Non-focal neurological exam. Diabetic peripheral neuropathy Toxic-metabolic encephalopathy due to hyperglycemia possibly induced by UTI + non-compliance with meds. Extensive, antecedent, microvascular white matter changes on the MRI (Not in a distribution suggesting demyelinating disease). Moderate, B/L carotovascular disease SUGGEST: Control glucose and Rx UTI. Please Rx BP with BP goal of normal BP 110-120/70-80 TSH is normal. Check B12 ASA 81 mg +/- Clopidogrel. Repeat Carotid doppler in 1 year. Agree with telemetry. Consider cardiology consultation. Thank you very much, Tom Gayle MD
[2017-08-01] MEDS ORDERED: ATORVASTATIN CA 80 MG TABLET (FP) PO SCH (22:00)
[2017-08-01] MEDS ORDERED: ATORVASTATIN CA 10 MG TABLET (FP) PO SCH (22:00)
[2017-08-02] MEDS: INSULIN SLIDING SCALE (NOVOLOG) 1 VIAL SQ SCH ×2 (06:36→11:44)
[2017-08-02] MEDS ORDERED: ASPIRIN 325 MG ENTERIC COATED TABLET (FP) PO SCH (10:00)
[2017-08-02 10:20] VITALS: BP 121/77; PULSE 94; TEMP 98.2
[2017-08-02] MEDS ORDERED: LISINOPRIL 5 MG TABLET (FP) PO SCH (10:45)
[2017-08-02] MEDS: SODIUM CHLORIDE 1,000 ML IV SCH (11:00)
--- NOTE | 2017-08-02 12:48 | DS ---
Physical Exam: SUBJECTIVE: Patient seen and examined. She denies cp, nausea, vomiting. She is aware she needs to take her medications. OBJECTIVE: Vital Signs Period Temp Pulse Resp BP Sys/Hidalgo Pulse Ox Last 24 Hr 97.7 F-98.5 F 85-111 18-20 117-148/65-88 98-99 PE Neuro: alert, awake, cn 2-12intact Pulm: CTAB CV: s1 s2 rrr nomrg Abd: s nt nd +bs Ext: warm, no le edema Msk: lower ext tenderness Laboratory Results - last 24 hr 08/01/17 08/01/17 08/01/17 13:00 18:00 21:59 POC Glucometer 359.55196 293 Ur Random Sodium 94 Urine Creatinine 162.0 08/02/17 08/02/17 05:58 11:32 POC Glucometer 260 301 Ur Random Sodium Urine Creatinine HOSPITAL COURSE: Date of Admission:08/01/17 Date of Discharge: 08/02/17 Minutes to complete discharge: 37 Discharge Summary Reason For Visit: ATAXIA, TIA (STROKE FLOOR ADMISSION) Current Active Problems Ataxia (Acute) TIA (transient ischemic attack) (Acute) Hospital Course: Initial Hospital Course: 61 female with pmhx of DM (non-complaint w/ meds), CVA/TIA several years ago,HTN , angina, depression, cataracts, hld, found at home confused by daughter. Daughter reported her mother was nauseous and vomited food/bile X3, Daughter witnessed her falling out of bed, she did not hit her head. Pt. stated she does not take any of her meds regularly. Daughter also noted her right hand was weak. Imaging: - MRI of brain: Cavum septum pellucidum; mild atrophy; diffuse, subcortical microvascular leukoencephalopathy. - Carotid duplex dopplers: Moderate B/L plaque without significant hemodynamic changes Subsequent Hospital Course/Progress Note/DC summary: 1. Pre syncope/weakness - Likely due to Nausea/vomiting - Extensive mircovascular changes on MRI - TSH wnl, b12 wnl - ASA daily 2. UA - Asymptomatic on exam - Will defer treatment at this time, absence of white count, fever, infectious symptoms 3. HTN - Started lisinopril 5mg daily (DM II) 4. DM II, uncontrolled - Discussed importance of medication adherence - Will hold on starting second agent, pt will need to take metformin 1000 ER regularly and check hgb a1c in 3months - [facility] referral made - Pt aware and daughter at bedside, stated she will take her medication Dispo: - Home with above meds and plan - [facility] referral made Condition: Stable - Instructions Diet, Activity, Other Instructions: Please return to the ED for any new, persistent, or worsening symptoms. Follow up with your PCP in 1 week Take new and regular medications as directed on home discharge list Referrals: Juliann Santana MD [Primary Care Provider] - Tom Gayle MD [Staff Physician] - Disposition: [facility]/HOME HEALTH CARE - Home Medications Comprehensive Discharge Medication List: Ambulatory Orders Aspirin [ASA -] 81 mg PO DAILY 08/01/17 Metformin HCl [Metformin HCl ER] 1,000 mg PO DAILY 08/01/17 Atorvastatin Ca [Lipitor] 40 mg PO HS #30 tablet 08/02/17 Lisinopril [Prinivil] 5 mg PO DAILY #30 tablet 08/02/17 This patient is new to me today: Yes Date on this admission: 08/02/17 Emergency Visit: Yes ED Registration Date: 08/01/17 Care time: The patient presented to the Emergency Department on the above date and was hospitalized for further evaluation of their emergent condition. Critical Care patient: No - Discharge Referral Referred to [facility] No
== END 2017-08-02 17:37 | disposition home health service (06) ==
LOC: JER 23:35 → JERBED 08-01 04:10 → UNDOADMOB 08-01 04:27 → J4W 08-01 18:10
PROVIDERS: ADMIT Internal Medicine; ATTEND Nurse Practitioner Acute Care
PROC: 3E013VG Introduction of Insulin into Subcutaneous Tissue, Percutaneous Approach (ICD-10-PCS; principal; 2017-08-01)
PROC: 3E0337Z Introduction of Electrolytic and Water Balance Substance into Peripheral Vein, Percutaneous Approach (ICD-10-PCS; 2017-08-01)
DX: R27.0 Ataxia, unspecified (principal); E87.1 Hypo-osmolality and hyponatremia; N17.9 Acute kidney failure, unspecified; R77.1 Abnormality of globulin; I10 Essential (primary) hypertension; E78.5 Hyperlipidemia, unspecified; E11.42 Type 2 diabetes mellitus with diabetic polyneuropathy; E11.65 Type 2 diabetes mellitus with hyperglycemia; Z79.4 Long term (current) use of insulin; Z79.84 Long term (current) use of oral hypoglycemic drugs; Z91.14 Patient's other noncompliance with medication regimen; Z91.011 Allergy to milk products; Z79.82 Long term (current) use of aspirin; Z86.79 Personal history of other diseases of the circulatory system; Z86.73 Personal history of transient ischemic attack (TIA), and cerebral infarction without residual deficits; G92 Toxic encephalopathy
CPT/HCPCS: 36415; 70450-TC; 70551-TC; 71020-TC; 80053; 81003; 81015; 82465; 82550; 82570; 82607; 83036; 83718; 83721; 83735; 84100; 84300; 84443; 84478; 84484; 85025; 85610; 86850; 86900; 86901; 93005; 93010; 93306-TC; 93880-TC; 96372; 97116-GP; 97161-GP; 99285-25; G0378

== ENCOUNTER 2017-11-29 13:45 | Emergency (ER) | payer OTHER ==
[2017-11-29 13:52] VITALS: TEMP 97.6; BMI 21.2
--- NOTE | 2017-11-29 14:05 | PDOC ---
History of Present Illness - General Chief Complaint: Revisit, Lab Variance Stated Complaint: PCP SENT Time Seen by Provider: 11/29/17 14:01 - History of Present Illness Initial Comments: 11/29/17 14:03 62 yo F with h/o HTN, HLD, IDDM ( non adherent), IA, CVA/TIA, and left eye blindness who arrives from outside office with nausea. Arrives from outside office Dr. Juliann Santana DIRECTOR STAFFING ( Mariama Griggs) with concern of DKA given A1C ( 12.8 on ), and poorly controlled DM. Patient reports fatigue and nausea without vomiting over the past 2-3 days. Also endorses one day of lightheadedness, with no asx. weakness, or vertiginous symptoms, increased urinary frequency. No identifiable triggers or alleviators. Patient denies F/C, CP, SOB, abdominal pain, dysuria, diarrhea, constipation, weakness, LOC, sensory changes. Pt. states that medication non adherence is d/t recent insurance coverage discontinuation for 1-2 months and today insurance was resumed. Pt. states that PCP did not draw labs today. Past History - Past Medical History Allergies/Adverse Reactions: Allergies Allergy/AdvReac Type Severity Reaction Status Date / Time No Known Drug Allergies Allergy Verified 11/29/17 13:48 lactose AdvReac Verified 11/29/17 13:48 Home Medications: Ambulatory Orders Aspirin [ASA -] 81 mg PO DAILY 08/01/17 Metformin HCl [Metformin HCl ER] 1,000 mg PO DAILY 08/01/17 Atorvastatin Ca [Lipitor] 40 mg PO HS #30 tablet 08/02/17 Lisinopril [Prinivil] 5 mg PO DAILY #30 tablet 08/02/17 Insulin (Levemir) [Levemir Flexpen -] 15 units SQ DAILY #1 pen 08/12/17 levoFLOXacin [Levaquin -] 250 mg PO ONCE #4 tablet MDD 1 tab 11/29/17 Cardiac Disorders: Yes (ANGINA) COPD: No Diabetes: Yes HTN: Yes Hypercholesterolemia: Yes Psychiatric Problems: Yes (depression) - Family Disease History Family Disease History: Diabetes: Mother - Immunization History Immunization Up to Date: Yes - Suicide/Smoking/Psychosocial Hx Smoking Status: No Smoking History: Never smoked Have you smoked in the past 12 months: No Number of Cigarettes Smoked Daily: 0 Cigars Per Day: 0 Hx Alcohol Use: No Drug/Substance Use Hx: No Substance Use Type: None Review of Systems - Review of Systems Comments:: 11/29/17 14:04 GENERAL/CONSTITUTIONAL: No fever or chills. No weakness. HEAD, EYES, EARS, NOSE AND THROAT: No change in vision. No ear pain or discharge. No sore throat.- CARDIOVASCULAR: No chest pain or shortness of breath RESPIRATORY: No cough, wheezing, or hemoptysis. GASTROINTESTINAL: + nausea, without vomiting. No diarrhea or constipation. GENITOURINARY: No dysuria, frequency, or change in urination. MUSCULOSKELETAL: No joint or muscle swelling or pain. No neck or back pain. SKIN: No rash NEUROLOGIC: + lightheadeness. No headache, vertigo, loss of consciousness, or change in strength/sensation. ENDOCRINE: No increased thirst. No abnormal weight change HEMATOLOGIC/LYMPHATIC: No anemia, easy bleeding, or history of blood clots. ALLERGIC/IMMUNOLOGIC: No hives or skin allergy. = *Physical Exam - Vital Signs Last Vital Signs Temp Pulse Resp BP Pulse Ox 97.6 F 110 H 22 159/92 100 11/29/17 13:49 11/29/17 13:49 11/29/17 13:49 11/29/17 13:49 11/29/17 13:49 - Physical Exam Comments: 11/29/17 14:04 GENERAL: Awake, alert, and fully oriented, in no acute distress HEAD: No signs of trauma, normocephalic, atraumatic EYES:Left eye blindness. PERRLA, EOMI, sclera anicteric, conjunctiva clear ENT: Hearing grossly normal, nares patent, oropharynx clear without exudates. Moist mucosa NECK: Normal ROM, supple, no lymphadenopathy, JVD, or masses LUNGS: No distress, speaks full sentences, clear to auscultation bilaterally HEART: irregular rate and normal rhythm, normal S1 and S2, no murmurs, rubs or gallops, peripheral pulses normal and equal bilaterally. ABDOMEN: Soft, nontender, normoactive bowel sounds. No guarding, no rebound. No masses EXTREMITIES : Normal inspection, Normal range of motion, no edema. No clubbing or cyanosis. NEUROLOGICAL: Cranial nerves II through XII grossly intact. Normal speech, no focal sensorimotor deficits. Absent dysmetria on FTN. Normal IRENE. SKIN: Warm, Dry, normal turgor, no rashes or lesions noted ED Treatment Course - LABORATORY CBC & Chemistry Diagram: 11/29/17 14:19 11/29/17 14:19 Medical Decision Making - Medical Decision Making 11/29/17 14:37 62 yo F with h/o HTN, HLD, IDDM ( non adherent), IA, CVA/TIA, and left eye blindness who arrives from outside office with concern of DKA given A1C ( 12.8 on 10/06/17),poorly controlled DM, and new onset fatigue and nausea without vomiting over the past 2-3 days. Endorses one day of lightheadedness, with no asx. weakness, or vertiginous symptoms, and increased urinary frequency. No identifiable triggers or alleviators. Patient denies F/C, CP, SOB, abdominal pain, dysuria, diarrhea, constipation, weakness, sensory changes. Tachycaridc HR ~110, with unremarkable physical exam. No signs of resp distress. Suspect symptoms secondary to poorly controlled IDDM/DKA vs. hypovolemia/dehydration vs. underlying electrolyte or acid acid base disrtubance. Low suspicion of infectious etiology, but will assess for cystitis. Absent resp complaints to suggest PNA. Although low suspicion will consider PE with new onset lightheadedness, and tachycardia. Low risk PE based on weils critera. Also consider cardiac dysarrythmia based on history of cardiac dz. and new onset presyncope. ED Course: CBC, CMP, Cardiac, VBG, Mg, Ph,POC glu EKG UA NS 2 L 11/29/17 15:01 EKG: NSR with absent interval change or axis deviation 11/29/17 15:10 UA: 3 + Leuk esterase, WBC 288, 1 + Blood, 7 RBC CBC: Unremarkable GLU: 283 Anion gap: 10 11/29/17 15:54 Levaquin PO 250 Levaquin PO x 4 sent to pharm. Patient stable ta bedside. Advised to f/u with PMD. Stable and ready for d/c with return precautions. 11/29/17 15:56 Trop: Neg *DC/Admit/Observation/Transfer Diagnosis at time of Disposition: Cystitis - Discharge Dispostion Disposition: HOME Condition at time of disposition: Stable Admit: No - Prescriptions Prescriptions: levoFLOXacin [Levaquin -] 250 mg PO ONCE #4 tablet MDD 1 tab - Referrals Referrals: Juliann Santana MD [Primary Care Provider] - - Patient Instructions Printed Discharge Instructions: DI for Acute Cystitis Additional Instructions: Please return to the emergency department with any new or worsening symptoms or concerns. Please follow up with your primary care physician within 72 hours. Please take Levaquin pill daily for 4 days. - Post Discharge Activity - Attestations Physician Attestion: 11/29/17 14:05 I attest to the information provided in this note.
--- NOTE | 2017-11-29 14:05 | PDOC ---
Attending Attestation - ED Attending Attestation I have performed the following: I have examined & evaluated the patient, The case was reviewed & discussed with the resident, I agree w/resident's findings & plan, Exceptions are as noted - HPI HPI: 11/29/17 14:42 The patient is a 62 year old female with significant history of hypertension, hyperlipidemia, IDDM, medication noncompliance, sent by her PCP for concerns for DKA. The patient reports generalized weakness, nausea, and vomiting for 2-3 days. She now also complains of lightheadedness. No fever or chills. No chest pain or shortness of breath. She states she has been unable to fill her insurance due to insurance issues. Documentation prepared by Marisela Davis, acting as medical technologist chief for Hattie Corea MD. <Marisela Davis - Last Filed: 11/29/17 14:41> - Resident Resident Name: Shahzad Roa - Physicial Exam PE: GENERAL: Awake, alert, and fully oriented, in no acute distress HEAD: No signs of trauma EYES: PERRLA, EOMI, sclera anicteric, conjunctiva clear ENT: Auricles normal inspection, hearing grossly normal, nares patent, oropharynx clear without exudates. Moist mucosa. +Hirsutism. NECK: Normal ROM, supple, no lymphadenopathy, JVD, or masses LUNGS: Breath sounds equal, clear to auscultation bilaterally. No wheezes, and no crackles HEART: Regular rate and rhythm, normal S1 and S2, no murmurs, rubs or gallops ABDOMEN: Soft, nontender, +hyperactive bowel sounds. No guarding, no rebound. No masses EXTREMITIES: Normal range of motion, no edema. No clubbing or cyanosis. No cords, erythema, or tenderness NEUROLOGICAL: Cranial nerves II through XII grossly intact. Normal speech, normal gait. SKIN: Warm, Dry, normal turgor, no rashes or lesions noted. - Medical Decision Making Pt sent for r/o DKA. Found to have elevated glucose, +UA. Anion gap is normal. Will treat with fluids and abx. Stable for DC home. <Hattie Corea - Last Filed: 11/29/17 16:16>
[2017-11-29 14:13] LABS: URINE APPEARANCE CLOUDY; URINE BILIRUBIN NEGATIVE (NEGATIVE); URINE BLOOD 1+ (NEGATIVE); URINE COLOR YELLOW; URINE GLUCOSE (UA) 3+ (NEGATIVE); URINE KETONE NEGATIVE (NEGATIVE); URINE NITRITE POSITIVE (NEGATIVE); URINE PROTEIN NEGATIVE (NEGATIVE); URINE UROBILINOGEN NEGATIVE mg/dL (0.2-1.0)
[2017-11-29 14:18] LABS: URINE LEUK ESTERASE 3+ (NEGATIVE)
[2017-11-29 14:20] LABS: EPI CELLS FEW /HPF (FEW); URINE BACTERIA RARE /hpf (NONE SEEN); URINE HYALINE CAST 7 /lpf; URINE MUCUS RARE; YEAST RARE
[2017-11-29 14:25] LABS: BASO % 0.8 % (0-2.0); EOS % 1.7 % (0-4.5); HEMATOCRIT 37.1 % (32.4-45.2); HEMOGLOBIN 12.5 GM/dL (10.7-15.3); LYMPH % 39.4 % (8-40); MCH 31.2 pg (25.7-33.7); MCHC 33.5 g/dl (32.0-36.0); MEAN CELL VOLUME 92.9 fl (80-96); MEAN PLT VOLUME 9.8 fl (7.5-11.1); MONO % 6.7 % (3.8-10.2); NEUT % 51.4 % (42.8-82.8); PLATELET COUNT 240 K/MM3 (134-434); RDW 13.5 % (11.6-15.6); WHITE BLOOD COUNT 9.9 K/mm3 (4.0-10.0)
[2017-11-29] MEDS ORDERED: SODIUM CHLORIDE 1,000 ML IV STA ×2 (14:30→14:53)
[2017-11-29 14:54] LABS: VENOUS PC02 53.3 mmHg (38-52); VENOUS PH 7.3 (7.32-7.42); VENOUS PO2 34.7 mmHg (28-48)
[2017-11-29 15:04] LABS: PHOSPHOROUS 3.8 mg/dL (2.5-4.9)
[2017-11-29 15:12] LABS: ALK PHOS 119 U/L (45-117); ANION GAP 10 (8-16); BILIRUBIN,TOTAL 0.6 mg/dL (0.2-1.0); BLOOD UREA NITROGEN 14 mg/dL (7-18); CALCIUM 8.9 mg/dL (8.5-10.1); CHLORIDE 97 mmol/L (98-107); CO2 27 mmol/L (21-32); CREATININE 0.7 mg/dL (0.55-1.02); GLUCOSE,RANDOM 283 mg/dL (74-106); SGOT/AST 11 U/L (15-37); SGPT/ALT 18 U/L (12-78); SODIUM 134 mmol/L (136-145); TOT PROT 8.5 g/dl (6.4-8.2)
[2017-11-29] MEDS ORDERED: levoFLOXacin 750 MG TABLET PO ONE (15:53)
[2017-11-29 16:16] VITALS: BP 144/77; PULSE 105
--- NOTE | 2017-11-29 16:22 | EKG ---
Test Reason : Blood Pressure : / mmHG Vent. Rate : 097 BPM Atrial Rate : 097 BPM P-R Int : 182 ms QRS Dur : 074 ms QT Int : 344 ms P-R-T Axes : 063 031 040 degrees QTc Int : 436 ms POOR DATA QUALITY, INTERPRETATION MAY BE ADVERSELY AFFECTED NORMAL SINUS RHYTHM NORMAL ECG WHEN COMPARED WITH ECG OF 01-AUG-2017 01:42, NO SIGNIFICANT CHANGE WAS FOUND Confirmed by MD LIZET, RHONDA ([id number]) on 11/29/2017 4:22:11 PM Referred By: Confirmed By:RHONDA HINDS MD
== END 2017-11-29 16:15 | disposition home or self-care (01) ==
LOC: JER 13:45
PROC: 3E0337Z Introduction of Electrolytic and Water Balance Substance into Peripheral Vein, Percutaneous Approach (ICD-10-PCS; principal; 2017-11-29)
DX: N30.00 Acute cystitis without hematuria (principal); I25.2 Old myocardial infarction; I25.119 Atherosclerotic heart disease of native coronary artery with unspecified angina pectoris; I10 Essential (primary) hypertension; E11.9 Type 2 diabetes mellitus without complications; Z79.4 Long term (current) use of insulin; Z91.14 Patient's other noncompliance with medication regimen; Z86.73 Personal history of transient ischemic attack (TIA), and cerebral infarction without residual deficits; H54.40 Blindness, one eye, unspecified eye
CPT/HCPCS: 36415; 80053; 81003; 81015; 82550; 82803; 82962; 83735; 84100; 84484; 85025; 87086; 87186; 93005; 93010; 96360; 96361; 99282-25; J7030

== ENCOUNTER 2018-11-17 12:26 | Emergency (ER) | payer OTHER ==
--- NOTE | 2018-11-17 12:31 | PDOC ---
Rapid Medical Evaluation Chief Complaint: Pain Time Seen by Provider: 11/17/18 12:30 Medical Evaluation: Allergies Allergy/AdvReac Type Severity Reaction Status Date / Time No Known Drug Allergies Allergy Verified 11/17/18 12:28 lactose AdvReac Verified 11/17/18 12:28 11/17/18 12:30 I have performed a brief in-person evaluation of this patient. The patient presents with a chief complaint of:fecal incontinence Pertinent physical exam findings:NAD I have ordered the following:labs The patient will proceed to the ED for further evaluation. Discharge Disposition - Diagnosis Fecal incontinence - Referrals - Patient Instructions - Post Discharge Activity
[2018-11-17 12:34] VITALS: TEMP 98; BMI 19.5
[2018-11-17 13:46] LABS: BASO % 0.5 % (0-2.0); EOS % 1.7 % (0-4.5); HEMATOCRIT 35.2 % (32.4-45.2); HEMOGLOBIN 12.3 GM/dL (10.7-15.3); LYMPH % 36.7 % (8-40); MCH 32.2 pg (25.7-33.7); MCHC 34.9 g/dl (32.0-36.0); MEAN CELL VOLUME 92.1 fl (80-96); MEAN PLT VOLUME 10.1 fl (7.5-11.1); MONO % 5.8 % (3.8-10.2); NEUT % 55.3 % (42.8-82.8); PLATELET COUNT 250 K/MM3 (134-434); RBC 3.82 M/mm3 (3.60-5.2); RDW 13.1 % (11.6-15.6); WHITE BLOOD COUNT 7.9 K/mm3 (4.0-10.0)
[2018-11-17 14:14] LABS: ALBUMIN 3.5 g/dl (3.4-5.0); ALK PHOS 112 U/L (45-117); ANION GAP 5 MMOL/L (8-16); BILIRUBIN,TOTAL 0.7 mg/dL (0.2-1); BLOOD UREA NITROGEN 14 mg/dL (7-18); CALCIUM 9.2 mg/dL (8.5-10.1); CHLORIDE 96 mmol/L (98-107); CO2 33 mmol/L (21-32); CREATININE 0.8 mg/dL (0.55-1.3); LIPASE 136 U/L (73-393); SGOT/AST 5 U/L (15-37); SGPT/ALT 17 U/L (13-61); SODIUM 134 mmol/L (136-145); TOT PROT 7.8 g/dl (6.4-8.2)
[2018-11-17 14:25] LABS: GLUCOSE,RANDOM 350 mg/dL (74-106)
--- NOTE | 2018-11-17 14:49 | PDOC ---
History of Present Illness - General Chief Complaint: Pain Stated Complaint: ABD PAIN Time Seen by Provider: 11/17/18 12:30 History Source: Patient - History of Present Illness Timing/Duration: reports: constant Past History - Past Medical History Allergies/Adverse Reactions: Allergies Allergy/AdvReac Type Severity Reaction Status Date / Time No Known Drug Allergies Allergy Verified 11/17/18 12:28 lactose AdvReac Verified 11/17/18 12:28 Home Medications: Ambulatory Orders Aspirin [ASA -] 81 mg PO DAILY 08/01/17 metFORMIN HCL [Metformin ER Osmotic] 1,000 mg PO DAILY 08/01/17 Atorvastatin Ca [Lipitor] 40 mg PO HS #30 tablet 08/02/17 Lisinopril [Prinivil] 5 mg PO DAILY #30 tablet 08/02/17 Insulin (Levemir) [Levemir Flexpen -] 15 units SQ DAILY #1 pen 08/12/17 levoFLOXacin [Levaquin -] 250 mg PO ONCE #4 tablet MDD 1 tab 11/29/17 Cardiac Disorders: Yes (ANGINA) COPD: No Diabetes: Yes (IDDM) HTN: Yes Hypercholesterolemia: Yes Psychiatric Problems: Yes (depression/ ANXIETY) - Family Disease History Family Disease History: Diabetes: Mother - Immunization History Immunization Up to Date: Yes - Suicide/Smoking/Psychosocial Hx Smoking Status: No Smoking History: Never smoked Have you smoked in the past 12 months: No Number of Cigarettes Smoked Daily: 0 Cigars Per Day: 0 Information on smoking cessation initiated: No Hx Alcohol Use: No Drug/Substance Use Hx: No Substance Use Type: None Review of Systems - Review of Systems Constitutional: No: Chills, Fever ABD/GI: No: Blood Streaked Bowels, Constipated, Diarrhea, Nausea, Rectal Bleeding, Vomiting, Tarry Stools Neurological: No: Tingling, Weakness *Physical Exam - Vital Signs Last Vital Signs Temp Pulse Resp BP Pulse Ox 98.0 F 100 H 16 145/90 99 11/17/18 12:29 11/17/18 12:29 11/17/18 12:29 11/17/18 12:29 11/17/18 12:29 - Physical Exam General Appearance: Yes: Appropriately Dressed. No: Apparent Distress HEENT: positive: Normal Voice Neck: positive: Supple Respiratory/Chest: negative: Respiratory Distress Gastrointestinal/Abdominal: positive: Soft. negative: Tender Rectal Exam: positive: other (rectal tone intact w/ feces coating anal area and in underwear, sensation intact) Integumentary: positive: Dry, Warm Neurologic: positive: Fully Oriented, Alert, Motor Strength 5/5, Other (flat affect) Moderate Sedation - Procedure Monitoring Vital Signs: Procedure Monitoring Vital Signs Temperature 98.0 F 11/17/18 12:29 Pulse Rate 100 H 11/17/18 12:29 Respiratory Rate 16 11/17/18 12:29 Blood Pressure 145/90 11/17/18 12:29 O2 Sat by Pulse Oximetry (%) 99 11/17/18 12:29 ED Treatment Course - LABORATORY CBC & Chemistry Diagram: 11/17/18 13:06 11/17/18 03:44 - ADDITIONAL ORDERS Additional order review: Laboratory Results 11/17/18 03:44 Sodium 134 L Potassium 4.0 Chloride 96 L Carbon Dioxide 33 H Anion Gap 5 L BUN 14 Creatinine 0.8 Creat Clearance w eGFR > 60 Random Glucose 350 H* Calcium 9.2 Total Bilirubin 0.7 AST 5 L ALT 17 Alkaline Phosphatase 112 Total Protein 7.8 Albumin 3.5 Lipase 136 11/17/18 13:06 RBC 3.82 MCV 92.1 MCHC 34.9 RDW 13.1 MPV 10.1 Neutrophils % 55.3 Lymphocytes % 36.7 Monocytes % 5.8 Eosinophils % 1.7 Basophils % 0.5 Medical Decision Making - Medical Decision Making 11/17/18 14:49 63-year-old female, history of HTN, HLD, IDDM, neuropathy, angina, depression and cataracts, BIB daughter for fecal incontinence. Patient states for the past 5 days has been defecating on herself and states she is not aware that she is doing so. Reports that stool is formed. No constipation recently and no diarrhea, prior rectal surgeries or h/o prolapse. No h/o similar condition. Denies back pain or LE weakness. Pt reports that she has not taken any of her meds in several months, though unable to state reason for this. States she does have medications at home currently See exam Fecal incontinence Possibly ?neuropathy related to uncontrolled IDDM (non-compliant w/ meds x months) Stable w/ intact rectal tone on exam, rest of neuro w/ no deficits -labs sent from triage and pending 11/17/18 17:06 Labs only remarkable for blood sugar of 350 that improved to 250, s/p IVF. Patient has not been taking any of her medication in over 6 months. Based on exam, highly unlikely that fecal incontinence due to cauda equina as patient reports no pain or urinary incontinence and had intact tone w/ no saddle anesthesia on exam w/ intact strength to LE b/l. Possible psych component given flat/odd affect in ED. Denies SI/HI. ED attending also evaluated patient and agrees that patient is stable for disposition to resume hoe meds f/u with her PMD. Reasons to return to ED d/w pt *DC/Admit/Observation/Transfer Diagnosis at time of Disposition: Fecal incontinence Qualifiers: Fecal incontinence type: unspecified Qualified Code(s): R15.9 - Full incontinence of feces - Discharge Dispostion Disposition: HOME Condition at time of disposition: Stable - Referrals Referrals: Juliann Santana MD [Primary Care Provider] - - Patient Instructions Printed Discharge Instructions: DI for Fecal Incontinence Additional Instructions: The cause of your fecal incontinence is unclear at this time, but it is very important that you follow-up with your primary doctor early next week for further evaluation. It is very important that you resume all your home meds to prevent further complications as discussed in length in ER Please return to ER for reasons discussed in ER today - Post Discharge Activity
[2018-11-17] MEDS ORDERED: SODIUM CHLORIDE 1,000 ML IV STA (14:55)
[2018-11-17 15:23] LABS: URINE APPEARANCE CLOUDY; URINE BILIRUBIN NEGATIVE (<2.0 mg/dL); URINE COLOR YELLOW; URINE GLUCOSE (UA) 3+ (NEGATIVE); URINE KETONE NEGATIVE (NEGATIVE); URINE LEUK ESTERASE 3+ (NEGATIVE); URINE NITRITE NEGATIVE (NEGATIVE); URINE PROTEIN NEGATIVE (NEGATIVE); URINE UROBILINOGEN NEGATIVE mg/dL (0.2-1.0)
[2018-11-17 16:15] LABS: EPI CELLS FEW /HPF (FEW); URINE BACTERIA RARE /hpf (NONE SEEN); URINE HYALINE CAST 5 /lpf; URINE MUCUS RARE; YEAST RARE
[2018-11-17 17:41] VITALS: BP 143/74; PULSE 91
== END 2018-11-17 17:40 | disposition home or self-care (01) ==
LOC: JER 12:26
PROC: 3E0337Z Introduction of Electrolytic and Water Balance Substance into Peripheral Vein, Percutaneous Approach (ICD-10-PCS; principal; 2018-11-17)
DX: R15.9 Full incontinence of feces (principal); I10 Essential (primary) hypertension; E78.5 Hyperlipidemia, unspecified; E11.9 Type 2 diabetes mellitus without complications; F32.9 Major depressive disorder, single episode, unspecified; I20.9 Angina pectoris, unspecified
CPT/HCPCS: 36415; 80053; 81003; 81015; 82962; 83690; 85025; 96360; 99282-25; J7030

== ENCOUNTER 2019-03-02 18:09 | Inpatient (IN) | payer OTHER ==
[2019-03-02] MEDS ORDERED: SODIUM CHLORIDE 1,000 ML IV STA (18:24)
[2019-03-02] MEDS ORDERED: ACETAMINOPHEN 1000 MG/100 ML VIAL (NON FORMULARY) IVPB ONE (18:24)
--- NOTE | 2019-03-02 18:27 | PDOC ---
Rapid Medical Evaluation Chief Complaint: Lightheaded Time Seen by Provider: 03/02/19 18:22 Medical Evaluation: Allergies Allergy/AdvReac Type Severity Reaction Status Date / Time No Known Drug Allergies Allergy Verified 03/02/19 18:19 lactose AdvReac Verified 03/02/19 18:19 Vital Signs Temp Pulse Resp BP Pulse Ox 100.0 F H 110 H 16 105/61 96 03/02/19 18:19 03/02/19 18:19 03/02/19 18:19 03/02/19 18:19 03/02/19 18:19 03/02/19 18:26 Patient complaints of: dizziness, weakness, elevated glucose redness and swelling to rt foot Patient on brief exam: tachy, low grade temp, noted erythema to base of rt 3/4 toe Patient ordered for: labs, ivf, iv tylenol Patient to proceed to the ED Discharge Disposition - Diagnosis Lightheadedness, Cellulitis, Lymphangitis - Discharge Dispostion Condition at time of disposition: Improved - Referrals - Patient Instructions - Post Discharge Activity
[2019-03-02] MEDS ORDERED: ACETAMINOPHEN INJECTION 100 ML IVPB ONE (18:41)
[2019-03-02 19:25] LABS: BASO % 1.4 % (0-2.0); EOS % 0.3 % (0-4.5); HEMATOCRIT 33.1 % (32.4-45.2); HEMOGLOBIN 11.1 GM/dL (10.7-15.3); LYMPH % 18.3 % (8-40); MCH 30.7 pg (25.7-33.7); MCHC 33.5 g/dl (32.0-36.0); MEAN CELL VOLUME 91.4 fl (80-96); MEAN PLT VOLUME 10.4 fl (7.5-11.1); MONO % 6.2 % (3.8-10.2); NEUT % 73.8 % (42.8-82.8); PLATELET COUNT 310 K/MM3 (134-434); RBC 3.62 M/mm3 (3.60-5.2); RDW 13.3 % (11.6-15.6)
--- NOTE | 2019-03-02 20:20 | PDOC ---
History of Present Illness - General Chief Complaint: Lightheaded Stated Complaint: DIZZY/NAUSEA Time Seen by Provider: 03/02/19 18:22 - History of Present Illness Initial Comments: 63yo F with PMH of DM (nonadherent on medications x 3 months), HTN, HLD, NM, angina, CVA/TIA, presenting with lightheadedness, R. foot complaint, and increasing mass on her back. Patient's daughter is at the bedside helping provide collateral history. Patient has been taking her home medications on random occasion when she feels poorly, but has not been taking them regularly for the past three months. She noticed pain and redness at the base of toes 2/3/ 4 on her right foot. Denies trauma to the area but admittedly has poor sensation in her feet. Reports what sounds like an infection of her left foot that was treated surgically. Patient has had a mass on the right side of her lower back for decades and noticed it increase in size after suffering a fall two weeks ago. Had two episodes of bilious vomiting yesterday and has had poor po intake today. Reports a ten pound weight loss over the past two months. Daughter says the patient seems confused. No fevers, chills, chest pain, or shortness of breath. PCP: Juliann Santana Neuro: Dr. Gayle Past History - Past Medical History Allergies/Adverse Reactions: Allergies Allergy/AdvReac Type Severity Reaction Status Date / Time No Known Drug Allergies Allergy Verified 03/02/19 18:19 lactose AdvReac Verified 03/02/19 18:19 Home Medications: Ambulatory Orders Aspirin [ASA -] 81 mg PO DAILY 08/01/17 metFORMIN HCL [Metformin ER Osmotic] 1,000 mg PO DAILY 08/01/17 Atorvastatin Ca [Lipitor] 40 mg PO HS #30 tablet 08/02/17 Lisinopril [Prinivil] 5 mg PO DAILY #30 tablet 08/02/17 Insulin (Levemir) [Levemir Flexpen -] 0 units SQ DAILY 03/02/19 Cardiac Disorders: Yes (ANGINA) COPD: No Diabetes: Yes (IDDM) HTN: Yes Hypercholesterolemia: Yes Psychiatric Problems: Yes (depression/ ANXIETY) - Family Disease History Family Disease History: Diabetes: Mother - Immunization History Immunization Up to Date: Yes - Suicide/Smoking/Psychosocial Hx Smoking Status: No Smoking History: Never smoked Have you smoked in the past 12 months: No Number of Cigarettes Smoked Daily: 0 Cigars Per Day: 0 Information on smoking cessation initiated: No Hx Alcohol Use: No Drug/Substance Use Hx: No Substance Use Type: None Review of Systems - Review of Systems Comments:: Constitutional: no fever, no chills HEENT: no throat pain, no dysphagia Cardiovascular: no chest pain, no palpitations Respiratory: no cough, no shortness of breath Gastrointestinal: +abdominal pain, +vomiting Genitourinary: no dysuria, no frequency Musculoskeletal: +R. foot pain, no L. foot pain Skin: no rash, no itching Neurologic: no headache, +lighteheaded *Physical Exam - Vital Signs Last Vital Signs Temp Pulse Resp BP Pulse Ox 100.0 F H 110 H 16 105/61 96 03/02/19 18:19 03/02/19 18:19 03/02/19 18:19 03/02/19 18:19 03/02/19 18:19 - Physical Exam Comments: General: Awake, alert, and fully oriented, in no acute distress Head: No signs of trauma Eyes: EOMI, sclera anicteric ENT: Dry mucus membranes Neck: Normal ROM, supple Lungs: Lungs clear, Normal breath sounds Cardio: Regular rhythm, S1 and S2 present Abdomen: Soft, nontender Extremities: Normal range of motion, Distal pulses present R. foot: erythema present at base of toes 2/3/4 with lymphangitis extending up to calf L. foot: normal SKIN: Warm, Dry, normal turgor Neurologic: Cranial nerves II through XII intact. Normal speech, sensation, strength, coordination. Back: Bulge present on R. flank, hard and without erythema or fluctuance, no discharge; no midline tenderness ED Treatment Course - LABORATORY CBC & Chemistry Diagram: 03/03/19 06:00 03/03/19 06:00 - ADDITIONAL ORDERS Additional order review: Laboratory Results 03/02/19 03/02/19 18:50 18:50 Sodium Cancelled Potassium Cancelled Chloride Cancelled Carbon Dioxide Cancelled Anion Gap Cancelled BUN Cancelled Creatinine Cancelled Est GFR (CKD-EPI)AfAm Cancelled Est GFR (CKD-EPI)NonAf Cancelled Random Glucose Cancelled Lactic Acid 1.3 Calcium Cancelled Magnesium Cancelled Total Bilirubin Cancelled AST Cancelled ALT Cancelled Alkaline Phosphatase Cancelled Total Protein Cancelled Albumin Cancelled Acetone, Qual Cancelled 03/02/19 18:50 RBC 3.62 MCV 91.4 MCHC 33.5 RDW 13.3 MPV 10.4 Neutrophils % 73.8 D Lymphocytes % 18.3 D Monocytes % 6.2 Eosinophils % 0.3 D Basophils % 1.4 - RADIOLOGY Radiology Studies Ordered: Category Date Time Status HEAD CT WITHOUT CONTRAST [CT] Stat CT Scan 03/02/19 19:[address] W/O CONTRAST [CT] Stat CT Scan 03/02/19 19:54 Ordered FOOT-RIGHT [RAD] Stat Radiology 03/02/19 20:18 Ordered - Medications Given in the ED: ED Medications Discontinued Medications Generic Name Dose Route Start Last Admin Trade Name Freq PRN Reason Stop Dose Admin Acetaminophen 1,000 mg 03/02/19 18:24 03/02/19 19:09 Ofirmev Injection - IVPB 03/02/19 18:25 1,000 mg ONCE ONE Administration Sodium Chloride 1,000 mls @ 1,000 mls/hr 03/02/19 18:24 03/02/19 19:09 Normal Saline - IV 03/02/19 19:23 1,000 mls/hr ASDIR STA Administration Medical Decision Making - Medical Decision Making 63yo F with PMH of DM (nonadherent on medications x 3 months), HTN, HLD, NM, angina, CVA/TIA, presenting with lightheadedness, R. foot complaint, and increasing mass on her back. DDX including but not limited to sepsis, DKA, cellulitis, UTI, PNA VS significant for temp of 100 and tachycardia Labs, Fluids CT Head/Lumbar spine BGM: 254 Per chart review, patient had a left foot abscess operative I & D in [address] Singh 03/02/19 20:20 CBC WBC 14.0 K/mm3 (4.0-10.0) H 03/02/19 18:50 RBC 3.62 M/mm3 (3.60-5.2) 03/02/19 18:50 Hgb 11.1 GM/dL (10.7-15.3) 03/02/19 18:50 Hct 33.1 % (32.4-45.2) 03/02/19 18:50 MCV 91.4 fl (80-96) 03/02/19 18:50 MCH 30.7 pg (25.7-33.7) 03/02/19 18:50 MCHC 33.5 g/dl (32.0-36.0) 03/02/19 18:50 RDW 13.3 % (11.6-15.6) 03/02/19 18:50 Plt Count 310 K/MM3 (134-434) D 03/02/19 18:50 MPV 10.4 fl (7.5-11.1) 03/02/19 18:50 Absolute Neuts (auto) 10.3 K/mm3 (1.5-8.0) H 03/02/19 18:50 Neutrophils % 73.8 % (42.8-82.8) D 03/02/19 18:50 Lymphocytes % 18.3 % (8-40) D 03/02/19 18:50 Monocytes % 6.2 % (3.8-10.2) 03/02/19 18:50 Eosinophils % 0.3 % (0-4.5) D 03/02/19 18:50 Basophils % 1.4 % (0-2.0) 03/02/19 18:50 Nucleated RBC % 0 % (0-0) 03/02/19 18:50 WBC elevated No anemia CMP Sodium 133 mmol/L (136-145) L 03/02/19 20:11 Potassium 3.8 mmol/L (3.5-5.1) 03/02/19 20:11 Chloride 99 mmol/L (98-107) 03/02/19 20:11 Carbon Dioxide 28 mmol/L (21-32) 03/02/19 20:11 Anion Gap 6 MMOL/L (8-16) L 03/02/19 20:11 BUN 12.0 mg/dL (7-18) 03/02/19 20:11 Creatinine 0.9 mg/dL (0.55-1.3) 03/02/19 20:11 Est GFR (CKD-EPI)AfAm 78.32 03/02/19 20:11 Est GFR (CKD-EPI)NonAf 67.57 03/02/19 20:11 POC Glucometer 254 UNITS (80-120) 03/02/19 20:19 Random Glucose 276 mg/dL (74-106) H 03/02/19 20:11 Lactic Acid 1.3 mmol/L (0.4-2.0) 03/02/19 18:50 Calcium 9.1 mg/dL (8.5-10.1) 03/02/19 20:11 Magnesium 1.9 mg/dL (1.8-2.4) 03/02/19 20:11 Total Bilirubin 0.9 mg/dL (0.2-1) 03/02/19 20:11 AST 9 U/L (15-37) L 03/02/19 20:11 ALT 13 U/L (13-61) 03/02/19 20:11 Alkaline Phosphatase 105 U/L (45-117) 03/02/19 20:11 Creatine Kinase 84 U/L (26-192) 03/02/19 20:11 Troponin I < 0.02 ng/ml (0.00-0.05) 03/02/19 20:11 C-Reactive Protein 13.8 MG/DL (0.00-0.3) H 03/02/19 20:11 Total Protein 8.2 g/dl (6.4-8.2) 03/02/19 20:11 Albumin 3.5 g/dl (3.4-5.0) 03/02/19 20:11 Glucose elevated normal lactate Tpn undetectable CRP elevated 13.8 CT head for acute pathology: "Sequential axial images were obtained from the base of the skull to the vertex. There is no evidence of acute intracranial hemorrhage, mass lesions or infarctions. There is a mild degree of diffuse cerebral atrophy with sulcal widening and ventricular dilatation. Hypodense changes are noted within the periventricular white matter consistent with chronic, small vessel ischemia. There is no evidence of fracture or acute bony pathology. IMPRESSION: No evidence of acute intracranial pathology." EKG: rate 106, QTc 435, sinus tachycardia Will treat for cellulitis/lymphangitis with Vanc/Zosyn Plan to admit 03/02/19 21:[address] Teixeira who accepted patieht for admission under Dr. Dickinson 03/02/19 21:51 CT Lumbar Spine: "Sequential axial images were obtained through the lumbar spine. Coronal and sagittal reconstructed images were also performed. There is no evidence of fracture, subluxation or acute bony abnormalities. Minimal degenerative arthritic changes are noted. There is no evidence of significant disc bulge or herniation. If neurologic symptoms are present, a follow-up MRI may be warranted. There is a large subcutaneous mass within the soft tissues slightly to the right of the midline at the L5 level. The mass measures 8.6 x 5.9 x 6.3 cm. The etiology of the mass is uncertain. This mass was present on a prior MRI of the lumbar spine dated 09/07/2018. Its etiology is uncertain. Clinical correlation is advised. Incidentally noted is a nonobstructing calculus within the lower pole of the left kidney measuring approximately 5 mm. IMPRESSION: 1. No fracture or acute bony pathology. 2. Large subcutaneous soft tissue mass that is unchanged since 09/07/2018. 3. Left nephrolithiasis. Please see above discussion. " 03/02/19 22:11 *DC/Admit/Observation/Transfer Diagnosis at time of Disposition: Lightheadedness, Cellulitis, Lymphangitis - Discharge Dispostion Condition at time of disposition: Guarded Decision to Admit order: Yes - Referrals - Patient Instructions - Post Discharge Activity
[2019-03-02 20:53] LABS: ALBUMIN 3.5 g/dl (3.4-5.0); ALK PHOS 105 U/L (45-117); ANION GAP 6 MMOL/L (8-16); BILIRUBIN,TOTAL 0.9 mg/dL (0.2-1); CALCIUM 9.1 mg/dL (8.5-10.1); CHLORIDE 99 mmol/L (98-107); CO2 28 mmol/L (21-32); CREATININE 0.9 mg/dL (0.55-1.3); GLUCOSE,RANDOM 276 mg/dL (74-106); MAGNESIUM 1.9 mg/dL (1.8-2.4); POTASSIUM 3.8 mmol/L (3.5-5.1); SGOT/AST 9 U/L (15-37); SGPT/ALT 13 U/L (13-61); SODIUM 133 mmol/L (136-145); TOT PROT 8.2 g/dl (6.4-8.2)
[2019-03-02] MEDS ORDERED: PIPERACILLIN/TAZOB 4.5 GM 4.5 GM in DEXTROSE 5%-WATER 100 ML IVPB ONE (21:13)
[2019-03-02] MEDS ORDERED: VANCOMYCIN 1,000 MG in DEXTROSE 5%-WATER - 250 ML IVPB ONE (21:13)
[2019-03-02] MEDS ORDERED: VANCOMYCIN 1 GRAM (PRE-DOCKED) 1,000 MG/250 ML BAG IVPB ONE ×2 (21:32→21:33)
[2019-03-02] MEDS ORDERED: PIPERACILLIN/TAZOB 4.5 GM 4.5 GM/100 ML BAG IVPB ONE (21:32)
--- NOTE | 2019-03-02 22:08 | PN ---
Teaching Attending Note Name of Resident: Sharda Teixeira ATTENDING PHYSICIAN STATEMENT I saw and evaluated the patient. I reviewed the resident's note and discussed the case with the resident. I agree with the resident's findings and plan as documented. SUBJECTIVE: Seen and examined; please refer to resident note for further historical information. Briefly, this is a 63 y/o female with a PMH signficant for noncompliance, DM, CVA/TIA, HTN, CAD, Osteomyelitis of the L-foot, depression, prior foot wound treated by Dr. Sunshine 2016, presents to the ER for pain and erythema to the R-foot (at base of 4 lateral toes). Present for several days; started to affect weight bearing due to pain. Some associated edema. She was also concerned that a back mass on her R-flank has increased in size ( has had 40 years); CT scan of the L-spine shows no change in the back mass since 08/2018. . Initially documented as being tough historian and potentially confused but is AAOx3 on our assessment. Daughter unfortunately left before our team could assess. 10 sys ROS done and negative aside from HPI PMH, PSH, FH, SH reviewed Home Medications Medication Instructions Recorded Aspirin [ASA -] 81 mg PO DAILY 08/01/17 metFORMIN HCL [Metformin ER 1,000 mg PO DAILY 08/01/17 Osmotic] Atorvastatin Ca [Lipitor] 40 mg PO HS #30 tablet 08/02/17 Lisinopril [Prinivil] 5 mg PO DAILY #30 tablet 08/02/17 Insulin (Levemir) [Levemir Flexpen 0 units SQ DAILY 03/02/19 -] OBJECTIVE: VS, labs, imaging reviewed NAD, AAOx3, resting in bed Back mass noted; looks like prior descriptions in chart. Not appearing acutely infected RRR to slight tachy s1/2 no mgr Lungs CTAB, w/ sym exp NT ND +BS CN2-12 wnl, no fnd Normal mood, appropriate behavior CT head negative for acute issues Doppler studies pending CXR report pending Cultures pending EKG reviewed ASSESSMENT AND PLAN: Patient presents for cellulitis of the R-foot; her daughter was concerned that she was slightly confused and she has a likely UTI 1) Sepsis 2/2 Cellulitis (WBC, tachy, source) -2/2 foot source; cause of toxic met enceph which has resolved. Broad spectrum abx and r/o OM 2) DM with hyperglycemia -Uncontrolled; consider endo referral. Basal +SSI 3) Hx HTN 4) Hx CAD 5) Hx CVA/TIA -Continue home meds, no new fnd 6) Hx HLD 7) Hx Noncompliance 8) Confusion -Neuro checks overnight but AAOx3; can monitor but appears resolved. Resident team to reach out to daughter to discuss further Full Code
[2019-03-02] MEDS ORDERED: INSULIN (NOVOLOG) ASPART 100 UNITS/ML 10ML VIAL SQ ONE (22:25)
--- NOTE | 2019-03-02 22:28 | HP ---
CHIEF COMPLAINT: R foot pain x 2-3 days PCP: Dr. Santana HISTORY OF PRESENT ILLNESS: 63 y/o F with PMH IDDM, HTN, HLD, SD, angina, CVA/TIA (with no residual deficits ), who presents to the ED c/o R foot pain over the past 2-3 days. As per pt, 2- 3 days ago, she noticed that she was unable to ambulate d/t pain in her R foot. Noticed erythema on the dorsal aspect of her R 2nd-4th toes as well as edema. Denies trauma to the area, but endorses peripheral neuropathy. Last saw a hvac instructor a month ago, however does not remember their name. During this time, pt also notes enlarging lumbosacral mass. She has had this mass chronically for the past 40 yrs ever since she suffered a mechanical fall, however does not notice drainage. Pt also endorses two episodes of NBNB emesis and generalized abdominal pain, which has since subsided. Daughter also endorsed that pt is not at her baseline and is confused, however upon my exam, daughter not present. Pt is currently AAOx3. Denies BREWER, fever, chills, SOB, chest pain or pressure or changes in urinary or bowel function. Of note, pt with L wound on plantar aspect in 2017 which grew strep agal B, MSSA. Was tx with rocephin, long duration with PICC. Has also had urine cx prior which grew E. coli. Pt is non compliant with her meds since she "doesn't like to take them." Lives at home with daughter and son in law and ambulates independently. ER course was notable for: (1) vanc 1 g (2) zosyn 4.5 g (3) NS 1L (4) IV tylenol Recent Travel: denies PAST MEDICAL HISTORY: as above PAST SURGICAL HISTORY: past L foot I&D plantar wound - w/ abscess. done by Dr. Singh Social History: retired. 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 [employer] Smoking: denies Alcohol: denies Drugs: denies Family History: sisters with DM Allergies No Known Drug Allergies Allergy (Verified 03/02/19 18:19) lactose Adverse Reaction (Verified 03/02/19 18:19) HOME MEDICATIONS: Home Medications Medication Instructions Recorded Aspirin [ASA -] 81 mg PO DAILY 08/01/17 metFORMIN HCL [Metformin ER 1,000 mg PO DAILY 08/01/17 Osmotic] Atorvastatin Ca [Lipitor] 40 mg PO HS #30 tablet 08/02/17 Lisinopril [Prinivil] 5 mg PO DAILY #30 tablet 08/02/17 Insulin (Levemir) [Levemir Flexpen 0 units SQ DAILY 03/02/19 -] meds need to be verified w pharma pt does not know meds REVIEW OF SYSTEMS CONSTITUTIONAL: Absent: fever, chills, diaphoresis, generalized weakness, malaise, loss of appetite, weight change HEENT: Absent: rhinorrhea, nasal congestion, throat pain, throat swelling, difficulty swallowing, mouth swelling, ear pain, eye pain, visual changes CARDIOVASCULAR: Absent: chest pain, syncope, palpitations, irregular heart rate, lightheadedness , peripheral edema RESPIRATORY: Absent: cough, shortness of breath, dyspnea with exertion, orthopnea, wheezing, stridor, hemoptysis GASTROINTESTINAL: Absent: abdominal pain, abdominal distension, nausea, vomiting, diarrhea, constipation, melena, hematochezia GENITOURINARY: Absent: dysuria, frequency, urgency, hesitancy, hematuria, flank pain, genital pain MUSCULOSKELETAL: +L foot pain, redness, swelling Absent: myalgia, arthralgia, joint swelling, back pain, neck pain SKIN: Absent: rash, itching, pallor HEMATOLOGIC/IMMUNOLOGIC: Absent: easy bleeding, easy bruising, lymphadenopathy, frequent infections ENDOCRINE: Absent: unexplained weight gain, unexplained weight loss, heat intolerance, cold intolerance NEUROLOGIC: Absent: headache, focal weakness or paresthesias, dizziness, unsteady gait, seizure, mental status changes, bladder or bowel incontinence PSYCHIATRIC: Absent: anxiety, depression, suicidal or homicidal ideation, hallucinations. PHYSICAL EXAMINATION Vital Signs - 24 hr 03/02/19 18:19 Temperature 100.0 F H Pulse Rate 110 H Respiratory 16 Rate Blood Pressure 105/61 O2 Sat by Pulse 96 Oximetry (%) GENERAL: Pleasant. AAOx 3 in NAD HEAD: Normal with no signs of trauma. EYES: Pupils equal, round and reactive to light, extraocular movements intact, sclera anicteric, conjunctiva clear. EARS, NOSE, THROAT: Ears normal, nares patent, oropharynx clear without exudates. Moist mucous membranes. NECK: Normal range of motion, supple without lymphadenopathy LUNGS: Breath sounds equal, clear to auscultation bilaterally. No wheezes, and no crackles. No accessory muscle use. HEART: Regular rate and rhythm, normal S1 and S2 without murmur, rub or gallop. ABDOMEN: Soft, obese, nontender, not distended, normoactive bowel sounds, no guarding, no rebound BACK: +4x4 in mass lumbo-sacral area. w/o drainage. non ttp UPPER EXTREMITIES: 2+ pulses, warm, well-perfused. No cyanosis. No clubbing. No peripheral edema. LOWER EXTREMITIES: 2+ dp pulses, warm, well-perfused. No calf tenderness. no peripheral edema. +erythema - dorsal portion base R 2-4toes. no drainage NEUROLOGICAL: Cranial nerves II-XII intact. PSYCHIATRIC: Cooperative. Good eye contact. Laboratory Results 03/02/19 03/02/19 03/02/19 18:50 20:11 20:11 WBC 14.0 H Hgb 11.1 Hct 33.1 Plt Count 310 D ESR 108 H Sodium 133 L Potassium 3.8 Random Glucose 276 H Hemoglobin A1c % Urine RBC (Auto) Acetone, Qual Negative L 03/02/19 03/02/19 03/02/19 20:11 20:11 23:00 Sodium Potassium Hemoglobin A1c % 11.4 H C-Reactive Protein 13.8 H Total LDL Cholesterol 125 H Ur Leukocyte Esterase Acetone, Qual 03/02/19 23:04 Hgb Random Glucose C-Reactive Protein Total LDL Cholesterol Ur Leukocyte Esterase 2+ H Urine WBC (Auto) 402 Urine RBC (Auto) 6 Acetone, Qual Head CT: vent dilation, sulcal widening, chronic small vessel ischemia. no acute changes Lumbar spine CT: large soft tissue mass unchanged from previous. L nonobstructing nephrolithiasis 5mm foot XR: official read pending ASSESSMENT/PLAN: 63 y/o F with PMH IDDM, HTN, HLD, SD, angina, CVA/TIA (with no residual deficits ), who presents to the ED c/o R foot pain over the past 2-3 days. #sepsis 2/2 R foot cellulitis -tachycardic, w/ white count. lactic WNL -c/w vanc, zosyn -f/u ucx, blood cx -f/u art, venous duplex -cont w/ IVF . -ID consult: Dr. Sainz -Podiatry consult: Dr. Singh #r/o osteomyelitis -though does not probe to bone, with elevated ESR, CRP. has hx OM in the past on L foot -f/u official read foot XR. -f/u MRI R foot. #UTI -may explain initial AMS as per daughter. currently AAO x 3 -covered w/ zosyn currently -f/u ucx #IDDM -ISS, BGM ACHS -a1c 11.4. poorly compliant #HTN-controlled -c/w lisinopril #HLD -c/w lipitor #F/E/N IV NS 100 cc/hr continue to follow lytes na controlled, diabetic diet #PPX DVT: hep 5k sq tid #Dispo admit to med-surg Visit type - Emergency Visit Emergency Visit: Yes ED Registration Date: 03/02/19 Care time: The patient presented to the Emergency Department on the above date and was hospitalized for further evaluation of their emergent condition. - New Patient This patient is new to me today: Yes Date on this admission: 03/03/19 - Critical Care Critical Care patient: No
[2019-03-02] MEDS ORDERED: SODIUM CHLORIDE 1,000 ML IV SCH (22:30)
[2019-03-02] MEDS ORDERED: INSULIN (NOVOLOG) ASPART 100 UNITS/ML 10ML VIAL ONE (22:44)
[2019-03-02 22:45] LABS: ACETONE SERUM NEGATIVE (NEGATIVE)
[2019-03-02 23:30] LABS: EPI CELLS 5.3 /HPF (0-5/HPF); HYALINE CASTS 26 /lpf (0-8); URINE APPEARANCE TURBID; URINE BACTERIA 4878.4 /hpf (NEGATIVE); URINE BILIRUBIN NEGATIVE (NEGATIVE); URINE COLOR YELLOW; URINE GLUCOSE (UA) 3+ (NEGATIVE); URINE KETONE TRACE (NEGATIVE); URINE LEUK ESTERASE 2+ (NEGATIVE); URINE NITRITE NEGATIVE (NEGATIVE); URINE PROTEIN TRACE (NEGATIVE); URINE RBC 6 /hpf (0-4); URINE WBC 402 /hpf (0-5)
[2019-03-02 23:38] LABS: INR 1.18 (0.83-1.09); PROTHROMBIN TIME (PATIENT) 13.9 SEC (9.7-13.0)
--- NOTE | 2019-03-02 23:39 | PDOC ---
Documentation entered by Hector Salazar SCRIBE, acting as scribe for Evangelina Reid MD. Evangelina Reid MD: This documentation has been prepared by the Martin grossman Elijah, SCRIBE, under my direction and personally reviewed by me in its entirety. I confirm that the documentation accurately reflects all work, treatment, procedures, and medical decision making performed by me. Attending Attestation - Resident Resident Name: Hattie Ch - ED Attending Attestation I have performed the following: I have examined & evaluated the patient, The case was reviewed & discussed with the resident, I agree w/resident's findings & plan - HPI HPI: 03/02/19 21:13 The patient is a 63 year old female with reported past medical history of DM ( non-compliant w/ meds for the past 3 months), CVA/TIA several years ago, HTN, angina, depression, bipolar, HLD, [place], L eye cataracts presents to the emergency department with lightheadedness and swelling in the right foot. The lightheadedness has been associated with dizziness, and two episodes of BB vomit. The patient denies syncope. The patient reports that the swelling in the right foot has occurred over the last few days. The patients associates limping with the leg swelling. The patient also reports loss of appetite today and abdominal pain. Denies chest pain, SOB, LOC, fever, chills. PCP: Dr. Kayce Santana. - Physicial Exam PE: 03/02/19 21:15 GENERAL: Afebrile Awake, alert, and fully oriented, in no acute distress HEAD: No signs of trauma EYES: +Left Eye Cataract. PERRLA, EOMI, sclera anicteric, conjunctiva clear ENT: Auricles normal inspection, hearing grossly normal, nares patent, oropharynx clear without exudates. Moist mucosa NECK: Normal ROM, supple, no lymphadenopathy, JVD, or masses LUNGS: Breath sounds equal, clear to auscultation bilaterally. No wheezes, and no crackles HEART: Regular rate and rhythm, normal S1 and S2, no murmurs, rubs or gallops ABDOMEN: Soft, nontender, normoactive bowel sounds. No guarding, no rebound. No masses. No flank pain. EXTREMITIES: +Cellulitis at proximal aspect at 2nd, 3rd and 4th right toe with lymphangitic streaking to mid calf. +Can wiggle toes but with pain. Moving all extremities. Normal range of motion, No clubbing or cyanosis. No cords, erythema , or tenderness NEUROLOGICAL: Cranial nerves II through XII grossly intact. Normal speech. SKIN: +R>L leg warmth. Rest of the skin: Warm, Dry, normal turgor, Pt has a large mass on her low back that is essentially unchaged and well encapsulated on imaging.. 03/03/19 19:51 - Medical Decision Making 03/02/19 20:45 Lactic acid negative. 03/02/19 21:12 CRP elevated 03/03/19 19:52 Pt will be admitted for neuro eval.
[2019-03-03] MEDS ORDERED: DEXTROSE 5%-WATER - 50 ML IVPB ONE ×2 (04:25→13:41)
[2019-03-03] MEDS ORDERED: PIPERACILLIN/TAZOBACTAM 3.375 GM VIAL IVPB ONE ×2 (04:25→13:41)
[2019-03-03] MEDS: PIPERACILLIN/TAZOB 3.375 GM 3.375 GM in DEXTROSE 5%-WATER - 50 ML IVPB SCH ×5 (05:05→17:25)
[2019-03-03] MEDS: INSULIN SLIDING SCALE (NOVOLOG) 1 VIAL SQ SCH ×4 (06:51→22:26)
[2019-03-03] MEDS: HEPARIN NA (PORCINE) 5,000 UNITS/ML 1ML VIAL SQ SCH ×3 (06:52→22:26)
--- NOTE | 2019-03-03 07:30 | CONSULT ---
Consult - text type - Consultation Consultation Note: Podiatry Consultation: 63 year old diabetic female known to me from prior admission, presented to hospital for admission with increasing pain/swelling to the right foot. Denies trauma or stepping on FB. Reports subjective fever at home. Presented with temp to 100 F, currently afebrile. Denies F/V/N/C/SOB/CP. PMHx: IDDM, HTN, HLD, [place], angina, CVA/TIA Meds; noted ALL: NKMA LIZET: R foot: pedal pulses 1/4, TG warm-warm, CFT brisk to all toes. There is a fluctuant area plantar fourth sulcus with tenderness elicited to palpation, no drainage expressed, no soft tissue crepitus, moderate periwound erythema, no ascending cellulitis, no lymphangitis. R foot XR: report pending, although I see no evidence of soft tissue emphysema ESR: 108 Blood Cx: negative Imp: 63 year old diabetic female with right foot cellulitis, r/o abscess 1. IV abx, ID consultation 2. F/u XR report 3. For MRI R foot 4. Will need I&D procedure. I will wait for MRI to evaluation the depth of soft tissue infection. I did discuss with patient that she may need operative debridement dependent on the depth of infection. If it is superficial I will be able to do a bedside procedure. Thank you for the courtesy of this consultation. Kyler Singh DPM
--- NOTE | 2019-03-03 07:42 | PN ---
Progress Note (short form) - Note Progress Note: currently no pain. admits to urinary frequency. admits to not taking her insulin. just because she does not want to be bothered. denies CP, SOB, fever, chills, N/V/C/D Current Medications Generic Name Dose Route Start Last Admin Trade Name Freq PRN Reason Stop Dose Admin Heparin Sodium (Porcine) 5,000 unit 03/03/19 06:00 03/03/19 06:52 Heparin - SQ 5,000 unit TID [facility] Administration Piperacillin Sod/Tazobactam 50 mls @ 100 mls/hr 03/03/19 05:00 Sod 3.375 gm/ Dextrose IVPB Q8H-IV [facility]ITRY Protocol Sodium Chloride 1,000 mls @ 100 mls/hr 03/02/19 22:30 03/03/19 01:19 Normal Saline - IV Not Given ASDIR DMITRY Piperacillin Sod/Tazobactam 50 mls @ 100 mls/hr 03/03/19 05:00 03/03/19 05:05 Sod 3.375 gm/ Dextrose IVPB 03/03/19 21:29 100 mls/hr Q8H [facility] Administration Vancomycin HCl 1,000 mg in 250 mls @ 250 mls/hr 03/03/19 23:00 Vancomycin (Pre-Docked) IVPB 03/03/19 23:59 ONCE ONE Insulin Aspart 1 vial 03/03/19 07:00 03/03/19 06:51 Novolog Vial Sliding Scale - SQ 4 units ACHS DMITRY Administration Protocol Vancomycin HCl 1,000 mg 03/03/19 23:00 Vancomycin (Pre-Docked) IVPB DAILY [facility] Protocol Last Vital Signs Temp Pulse Resp BP Pulse Ox 98.6 F 91 H 20 135/73 98 03/03/19 04:00 03/03/19 04:00 03/03/19 04:00 03/03/19 04:00 03/03/19 00:47 General NAD CV S1 S2 RRR +murmur Lungs CTA B/L no wheezing/rales/rhonchi Abdomen soft NT/ND Extremities R forefoot erythematous, warm and swollen on dorsal surface. at base of 2nd digit on plantar surface has flucutant area thats tender, no drainage noted. pulse intact CBCD WBC 14.0 K/mm3 (4.0-10.0) H 03/02/19 18:50 RBC 3.62 M/mm3 (3.60-5.2) 03/02/19 18:50 Hgb 11.1 GM/dL (10.7-15.3) 03/02/19 18:50 Hct 33.1 % (32.4-45.2) 03/02/19 18:50 MCV 91.4 fl (80-96) 03/02/19 18:50 MCHC 33.5 g/dl (32.0-36.0) 03/02/19 18:50 RDW 13.3 % (11.6-15.6) 03/02/19 18:50 Plt Count 310 K/MM3 (134-434) D 03/02/19 18:50 MPV 10.4 fl (7.5-11.1) 03/02/19 18:50 CMP Sodium 133 mmol/L (136-145) L 03/02/19 20:11 Potassium 3.8 mmol/L (3.5-5.1) 03/02/19 20:11 Chloride 99 mmol/L (98-107) 03/02/19 20:11 Carbon Dioxide 28 mmol/L (21-32) 03/02/19 20:11 Anion Gap 6 MMOL/L (8-16) L 03/02/19 20:11 BUN 12.0 mg/dL (7-18) 03/02/19 20:11 Creatinine 0.9 mg/dL (0.55-1.3) 03/02/19 20:11 Random Glucose 276 mg/dL (74-106) H 03/02/19 20:11 Calcium 9.1 mg/dL (8.5-10.1) 03/02/19 20:11 Total Bilirubin 0.9 mg/dL (0.2-1) 03/02/19 20:11 AST 9 U/L (15-37) L 03/02/19 20:11 ALT 13 U/L (13-61) 03/02/19 20:11 Alkaline Phosphatase 105 U/L (45-117) 03/02/19 20:11 Total Protein 8.2 g/dl (6.4-8.2) 03/02/19 20:11 Albumin 3.5 g/dl (3.4-5.0) 03/02/19 20:11 CARDIAC ENZYMES Creatine Kinase 84 U/L (26-192) 03/02/19 20:11 Troponin I < 0.02 ng/ml (0.00-0.05) 03/02/19 20:11 A/P 63yo F wtih PMH DM, CVA, CAD, and previous OM of L foot presented to the ER with confusion and found to be septic due to R foot cellulitis with abscess and UTI 1. Acute metabolic encehalopathy- due to sepsis and infection. now resolved. at baseline. cont to treat infections. Head CT negative for acute pathology 2. Sepsis due to R foot cellulitis with abscess- elevated ESR/CRP. XR not showing any subcutaneous gas. concern for OM. MRI pending. will f/u. plan for I& D in OR vs Bedside depending on extent of abscess. on Vanco/zosyn. check Vanco level prior to 4th dose. ID and podiatry on board. f/u cx 3. Acute cystitis- on vanco/zosyn. will f/u Cx 4. DM- uncontrolled. A1c 11.4. not compliant with medications. will start levemir 5 units tonight and titrate to optimize control. bmg and iss. hold oral agents. counselled on risks assoc with epic kaleidoscope analyst uncontrolled hyperglycemia. acknowledge risks and need for insulin going forward 5. CVA- on asa/statin 6. CAD- on asa/statin/acei 7. DVT ppx- heparin Visit type - Emergency Visit Emergency Visit: Yes ED Registration Date: 03/02/19 Care time: The patient presented to the Emergency Department on the above date and was hospitalized for further evaluation of their emergent condition. - New Patient This patient is new to me today: Yes Date on this admission: 03/03/19 - Critical Care Critical Care patient: No - Discharge Referral Referred to [facility] No
[2019-03-03 08:08] LABS: BLOOD UREA NITROGEN 12.5 mg/dL (7-18); CALCIUM 8.6 mg/dL (8.5-10.1); CREATININE 0.9 mg/dL (0.55-1.3); MAGNESIUM 2.1 mg/dL (1.8-2.4); PHOSPHOROUS 3.1 mg/dL (2.5-4.9); POTASSIUM 3.8 mmol/L (3.5-5.1)
[2019-03-03 08:14] LABS: BASO % 0.8 % (0-2.0); EOS % 0.8 % (0-4.5); HEMATOCRIT 29.7 % (32.4-45.2); HEMOGLOBIN 10.1 GM/dL (10.7-15.3); LYMPH % 18.9 % (8-40); MCH 31.1 pg (25.7-33.7); MCHC 34.1 g/dl (32.0-36.0); MEAN CELL VOLUME 91.2 fl (80-96); MEAN PLT VOLUME 9.8 fl (7.5-11.1); MONO % 6.4 % (3.8-10.2); NEUT % 73.1 % (42.8-82.8); PLATELET COUNT 263 K/MM3 (134-434); RBC 3.25 M/mm3 (3.60-5.2); WHITE BLOOD COUNT 11.8 K/mm3 (4.0-10.0)
--- NOTE | 2019-03-03 13:34 | CON.ID ---
Consult Consult Specialty:: infectious diseases Reason for Consultation:: cwllulitis of the foot with fluctuation in between the toes - History of Present Illness Chief Complaint: pain of the foot unable to put pressure on the foot History of Present Illness: 63 year old female with reported past medical history of DM (non-compliant w/ meds for the past 3 months), CVA/TIA several years ago, HTN, angina, depression , bipolar, HLD, [place], L eye cataracts presents to the emergency department with lightheadedness and swelling in the right foot. The lightheadedness has been associated with dizziness, and two episodes of BB vomit. The patient denies syncope. The patient reports that the swelling in the right foot has occurred over the last few days. The patients associates limping with the leg swelling. The patient also reports loss of appetite today and abdominal pain. patient had similar issues on the left foot before now she has pain swelling and fluctation on the dorsum of the foot - History Source History Provided By: Patient Limitations to Obtaining History: No Limitations - Past Medical History MANIPULATIVE THERAPY SPECIALIST: Yes: Other (chronic intermittent lightheadedness (x 1 year)) Cardio/Vascular: Yes: CAD, HTN, Hyperlipdemia, Other (angina) Pulmonary: No: Asthma, Bronchitis, Cancer, COPD, O2 Dependent, Pneumonia, Previously Intubated, Pulmonary Embolus, Pulmonary Fibrosis, Sleep Apnea, Other ...: No Psych: Yes: Depression ENT: Yes: Other (blind left eye) Endocrine: Yes: Diabetes Mellitus - Past Surgical History Past Surgical History: Yes: None - Alcohol/Substance Use Hx Alcohol Use: No - Smoking History Smoking history: Never smoked Have you smoked in the past 12 months: No Aproximately how many cigarettes per day: 0 Home Medications - Allergies Allergies/Adverse Reactions: Allergies Allergy/AdvReac Type Severity Reaction Status Date / Time No Known Drug Allergies Allergy Verified 03/02/19 18:19 lactose AdvReac Verified 03/02/19 18:19 - Home Medications Home Medications: Ambulatory Orders RX: Aspirin [ASA -] 81 mg PO DAILY 08/01/17 RX: metFORMIN HCL [Metformin ER Osmotic] 1,000 mg PO BID 08/01/17 Atorvastatin Ca [Lipitor] 40 mg PO HS #30 tablet 08/02/17 Insulin (Levemir) [Levemir Flexpen -] 30 units SQ AM 03/02/19 RX: Lisinopril [Prinivil] 20 mg PO DAILY 03/04/19 Family Disease History - Family Disease History Family Disease History: Diabetes: Mother, Other: Father (Throat Ca ) Review of Systems - Review of Systems Constitutional: reports: No Symptoms Eyes: reports: No Symptoms HENT: reports: No Symptoms Neck: reports: No Symptoms Cardiovascular: reports: No Symptoms Respiratory: reports: No Symptoms Gastrointestinal: reports: No Symptoms Genitourinary: reports: No Symptoms Musculoskeletal: reports: Muscle Pain Integumentary: reports: Erythema, Other (swelling of the dorsum of the foot) Neurological: reports: No Symptoms Endocrine: reports: No Symptoms Hematology/Lymphatic: reports: No Symptoms Psychiatric: reports: No Symptoms Physical Exam Vital Signs: Vital Signs Temperature 99.6 F 03/03/19 10:00 Pulse Rate 91 H 03/03/19 10:00 Respiratory Rate 20 03/03/19 10:00 Blood Pressure 149/83 03/03/19 10:00 O2 Sat by Pulse Oximetry (%) 99 03/03/19 09:00 Constitutional: Yes: Well Nourished, No Distress, Calm Eyes: Yes: Conjunctiva Clear HENT: Yes: Atraumatic, Normocephalic Neck: Yes: Supple, Trachea Midline Cardiovascular: Yes: Regular Rate and Rhythm Respiratory: Yes: Regular, CTA Bilaterally Gastrointestinal: Yes: Normal Bowel Sounds, Soft Musculoskeletal: Yes: Other Extremities: Yes: Erythema (rt foot swelling fluctuation on the dorsum of the foot) Integumentary: Yes: Erythema Wound/Incision: Yes: Other Neurological: Yes: Alert, Oriented Psychiatric: Yes: Alert, Oriented Labs: CBC, BMP 03/03/19 06:00 03/03/19 06:00 Imaging - Results Chest X-ray: Report Reviewed, Image Reviewed Cat Scan: Report Reviewed, Image Reviewed Assessment/Plan ASSESSMENT/PLAN: 63 y/o F with PMH IDDM, HTN, HLD, [place], angina, CVA/TIA (with no residual deficits ), who presents to the ED c/o R foot pain over the past 2-3 days. R foot cellulitis rfoot abscess r/o osteomyelitis uti dm plan awaiting mri of the foot i think patient has abscess present on the foot and needs to be drained-- podiatry on case rest as per the team once we ahve all results will decide final plan
[2019-03-03] MEDS ORDERED: INSULIN (NOVOLOG) ASPART 100 UNITS/ML 10ML VIAL ONE (17:12)
[2019-03-03] MEDS: VANCOMYCIN 1 GRAM (PRE-DOCKED) 1,000 MG/250 ML BAG IVPB SCH (22:26)
[2019-03-03] MEDS: INSULIN (LEVEMIR) 100 UNITS/ML UNITS SQ SCH (22:26)
[2019-03-03] MEDS ORDERED: VANCOMYCIN 1 GRAM (PRE-DOCKED) 1,000 MG/250 ML BAG IVPB ONE (23:00)
[2019-03-03] MEDS ORDERED: VANCOMYCIN 1 GM in D5W (PRE-DOCKED) 1,000 MG/250 ML IVPB SCH (23:00)
[2019-03-04] MEDS ORDERED: PIPERACILLIN/TAZOBACTAM 3.375 GM VIAL IVPB ONE ×3 (01:52→16:47)
[2019-03-04] MEDS ORDERED: DEXTROSE 5%-WATER - 50 ML IVPB ONE ×3 (01:53→16:48)
[2019-03-04] MEDS: PIPERACILLIN/TAZOB 3.375 GM 3.375 GM in DEXTROSE 5%-WATER - 50 ML IVPB SCH ×3 (01:59→17:13)
[2019-03-04] MEDS: INSULIN SLIDING SCALE (NOVOLOG) 1 VIAL SQ SCH ×4 (06:00→21:00)
[2019-03-04] MEDS: HEPARIN NA (PORCINE) 5,000 UNITS/ML 1ML VIAL SQ SCH ×3 (06:00→21:00)
--- NOTE | 2019-03-04 08:55 | PN ---
Teaching Attending Note Name of Resident: Jermaine Barth ATTENDING PHYSICIAN STATEMENT I saw and evaluated the patient. I reviewed the resident's note and discussed the case with the resident. I agree with the resident's findings and plan as documented. SUBJECTIVE:c/o some pain in the foot. denies CP, SOB, fever, chills, N/V/C/D OBJECTIVE: Last Vital Signs Temp Pulse Resp BP Pulse Ox 99.6 F 104 H 18 108/66 99 03/04/19 06:00 03/04/19 06:00 03/04/19 06:00 03/04/19 06:00 03/03/19 21:00 General NAD Extremities R foot with foot swelling, warmth and erythema on dorsum of foot. fluctuant tender region on palmar aspect below 2nd digit, ecchmotic area below the 4th and 5th digits. whole palmar aspect is tender. pulse palpated but limited due to pain ASSESSMENT AND PLAN: 63yo F wtih PMH DM, CVA, CAD, and previous OM of L foot presented to the ER with confusion and found to be septic due to R foot cellulitis with abscess and UTI 1. Acute metabolic encehalopathy- due to sepsis and infection. now resolved. at baseline. cont to treat infections. Head CT negative for acute pathology 2. Sepsis due to R foot cellulitis with abscess- possible OM with elevated ESR/ CRP. MRI done and awaiting results. arterial doppler showing stenosis of R post. popliteal and tibial. foot is warm and can appreciate pulse. will consult vascular to evaluate if intervention is needed. NPO tonight for I&D in AM ( unsure if will need to go to OR for drainage). on Vanco/zosyn. check Vanco level prior to 4th dose. ID and podiatry on board. f/u cx 3. Acute cystitis- on vanco/zosyn. will f/u Cx 4. DM- uncontrolled. A1c 11.4. not compliant with medications. started levemir 5 units with good response. titrate to optimize sugars. dietary consult. bgm and iss. 5. CVA- on asa/statin 6. CAD- on asa/statin/acei 7. DVT ppx- heparin
--- NOTE | 2019-03-04 09:38 | PN ---
Progress Note (short form) - Note Progress Note: Podiatry F/U; Seen/evaluated at bedside NAD. Pain to right foot persistent. Running low grade temps, as high as 100 F. Denies V/N/C/SOB. MRI completed. LIZET: R foot: pedal pulses weak, TG warm-warm, CFT brisk to toes. Fourth interspace abscess with fluctuance, (++) tender to palpation, periwound cellulitis to the forefoot. No ischemic changes, no soft tissue crepitus. MRI: pending WBC: 11.8 Blood Cx: no growth Imp: 63 year old diabetic female with right foot abscess/cellulitis 1. IV abx per ID 2. Informed consent obtained. Bedside incision and drainage of abscess performed utilizing sterile #15 blade scalpel and forceps. 10 CCs of purulence expressed from the abscess site. Fourth interspace plantar diabetic ulcer probing to bone. The patient tolerated the procedure well without complications. 3. Post-procedure wound culture obtained 4. Bactroban to right foot daily 5. PWB with surgical shoe right foot 6. If no improvement tomorrow, will plan for OR I&D on Tuesday 7. Will follow Kyler Singh DPM
--- NOTE | 2019-03-04 09:58 | PN ---
Physical Exam: SUBJECTIVE: Patient seen and examined OBJECTIVE: Vital Signs Temperature 98.7 F 03/04/19 10:00 Pulse Rate 95 H 03/04/19 10:00 Respiratory Rate 18 03/04/19 10:00 Blood Pressure 123/68 03/04/19 10:00 O2 Sat by Pulse Oximetry (%) 99 03/04/19 09:00 GENERAL: Pleasant. AAOx 3 in NAD HEAD: Normal with no signs of trauma. EYES: Pupils equal, round and reactive to light, extraocular movements intact, sclera anicteric, conjunctiva clear. EARS, NOSE, THROAT: Ears normal, nares patent, oropharynx clear without exudates. Moist mucous membranes. NECK: Normal range of motion, supple without lymphadenopathy LUNGS: Breath sounds equal, clear to auscultation bilaterally. No wheezes, and no crackles. No accessory muscle use. HEART: Regular rate and rhythm, normal S1 and S2 without murmur, rub or gallop. ABDOMEN: Soft, obese, nontender, not distended, normoactive bowel sounds, no guarding, no rebound BACK: +4x4 in mass lumbo-sacral area. w/o drainage. non ttp UPPER EXTREMITIES: 2+ pulses, warm, well-perfused. No cyanosis. No clubbing. No peripheral edema. LOWER EXTREMITIES: 2+ dp pulses, warm, well-perfused. No calf tenderness. no peripheral edema. +erythema - dorsal portion base R 2-4toes. no drainage NEUROLOGICAL: Cranial nerves II-XII intact. PSYCHIATRIC: Cooperative. Good eye contact. Laboratory Results - last 24 hr 03/02/19 03/03/19 03/03/19 23:00 11:53 16:52 POC Glucometer 102 219 RPR Titer Nonreactive 03/03/19 03/04/19 22:24 05:58 POC Glucometer 184 193 RPR Titer Active Medications Acetaminophen (Tylenol -) 650 mg PO Q6H PRN PRN Reason: PAIN Heparin Sodium (Porcine) (Heparin -) 5,000 unit SQ TID [facility] Last Admin: 03/04/19 06:00 Dose: 5,000 unit Vancomycin HCl (Vancomycin (Pre-Docked)) 1,000 mg in 250 mls @ 166.667 mls/hr IVPB Q24H [facility] Last Admin: 03/03/19 22:26 Dose: 166.667 mls/hr Piperacillin Sod/Tazobactam (Sod 3.375 gm/ Dextrose) 50 mls @ 100 mls/hr IVPB Q8H-IV [facility]IT[facility]; Protocol Last Admin: 03/04/19 09:26 Dose: 100 mls/hr Insulin Aspart (Novolog Vial Sliding Scale -) 1 vial SQ ACHS [facility]; Protocol Last Admin: 03/04/19 06:00 Dose: 2 units Insulin Detemir (Levemir Vial) 5 units SQ HS [facility] Last Admin: 03/03/19 22:26 Dose: 5 units Mupirocin (Bactroban 2% Ointment -) 1 applic TP DAILY [facility] IMAGING: * Head CT: vent dilation, sulcal widening, chronic small vessel ischemia. no acute changes * Lumbar spine CT: large soft tissue mass unchanged from previous. L nonobstructing nephrolithiasis 5mm * R Foot XR: Calcaneal spurring and minimal bunion formation by 1st MTP * LE duplex: mild to mod. atherosclerosis w/ possible stenosis within distal R popliteal/posterior tibial arteries * LE MRI: pending ASSESSMENT/PLAN: 63F with PMH IDDM, HTN, HLD, [place], angina, CVA/TIA (with no residual deficits), who presents to the ED c/o R foot pain over the past 2-3 days. #Sepsis 2/2 R foot cellulitis; s/p I&D by podiatry today, 03/04 -Cont Vanc 1gm IVPB QD, Zosyn 3.375 gm Q8H (Day 2 of IV abx) -UCx +LFGNB, BCx neg x24h -Art/venous duplex remarkable for possible stenosis within distal R popliteal/ posterior tibial arteries; vasc surg consulted -ID consult: Dr. Sainz -Pod performed I&D today at bedside. 10cc of purulent drainage expressed from site. 4th interspace plantar diabetic ulcer probing to bone. Post-procedure wound culture obtained; Cont Bactroban to R food daily. If no improvement tomorrow, plan for OR I&D on Tuesday. #R/o osteomyelitis; s/p I&D -Per podiatry, able to probe to bone after drainage. -Eevated ESR, CRP -f/u MRI R foot; results pending #UTI -may explain initial AMS as per daughter. currently AAO x 3 -covered w/ zosyn currently -UCx +LFGNB #IDDM -ISS, BGM ACHS -A1c 11.4. poorly compliant #HTN-controlled. Cont home meds: Lisinopril 20 QD #HLD; cont home meds: Lipitor 40 PO HS #F/E/N -oral hydration -continue to follow lytes -Na controlled, diabetic diet #PPX DVT: SQH #Dispo -cont to monitor on med-surg Visit type - Emergency Visit Emergency Visit: Yes ED Registration Date: 03/02/19 Care time: The patient presented to the Emergency Department on the above date and was hospitalized for further evaluation of their emergent condition. - New Patient This patient is new to me today: Yes Date on this admission: 03/04/19 - Critical Care Critical Care patient: No
[2019-03-04] MEDS ORDERED: INSULIN (NOVOLOG) ASPART 100 UNITS/ML 10ML VIAL ONE (11:59)
[2019-03-04] MEDS ORDERED: PT OWN MED DRAWER 7, Y5N ONE (12:05)
--- NOTE | 2019-03-04 12:14 | PN ---
Progress Note, Physician History of Present Illness: patient stable i and d done - Current Medication List Current Medications: Active Medications Acetaminophen (Tylenol -) 650 mg PO Q6H PRN PRN Reason: PAIN Heparin Sodium (Porcine) (Heparin -) 5,000 unit SQ TID [facility] Last Admin: 03/04/19 06:00 Dose: 5,000 unit Vancomycin HCl (Vancomycin (Pre-Docked)) 1,000 mg in 250 mls @ 166.667 mls/hr IVPB Q24H [facility] Last Admin: 03/03/19 22:26 Dose: 166.667 mls/hr Piperacillin Sod/Tazobactam (Sod 3.375 gm/ Dextrose) 50 mls @ 100 mls/hr IVPB Q8H-IV [facility]; Protocol Last Admin: 03/04/19 09:26 Dose: 100 mls/hr Insulin Aspart (Novolog Vial Sliding Scale -) 1 vial SQ ACHS [facility]; Protocol Last Admin: 03/04/19 06:00 Dose: 2 units Insulin Detemir (Levemir Vial) 5 units SQ HS [facility] Last Admin: 03/03/19 22:26 Dose: 5 units Mupirocin (Bactroban 2% Ointment -) 1 applic TP DAILY [facility] - Objective Vital Signs: Vital Signs Temperature 98.7 F 03/04/19 10:00 Pulse Rate 95 H 03/04/19 10:00 Respiratory Rate 18 03/04/19 10:00 Blood Pressure 123/68 03/04/19 10:00 O2 Sat by Pulse Oximetry (%) 99 03/04/19 09:00 Constitutional: Yes: No Distress, Calm Cardiovascular: Yes: Regular Rate and Rhythm Respiratory: Yes: Regular, CTA Bilaterally Gastrointestinal: Yes: Normal Bowel Sounds, Soft Musculoskeletal: Yes: WNL Extremities: Yes: Other Wound/Incision: Yes: Dressing Dry and Intact Neurological: Yes: Alert, Oriented Psychiatric: Yes: Alert, Oriented Labs: CBC, BMP 03/03/19 06:00 03/03/19 06:00 INR, PTT INR 1.18 (0.83-1.09) H 03/02/19 23:00 Assessment/Plan ASSESSMENT/PLAN: 63 y/o F with PMH IDDM, HTN, HLD, [place], angina, CVA/TIA (with no residual deficits ), who presents to the ED c/o R foot pain over the past 2-3 days. R foot cellulitis rfoot abscess r/o osteomyelitis uti dm plan continue current abx await for cx report await for mri reults rest as per the team and podiatry
[2019-03-04] MEDS: MUPIROCIN 2% TOPICAL OINTMENT 22 GM TUBE TP SCH (13:25)
[2019-03-04] MEDS: ACETAMINOPHEN 325 MG TABLET (FP) PO PRN (13:39)
--- NOTE | 2019-03-04 17:15 | EKG ---
Test Reason : Blood Pressure : / mmHG Vent. Rate : 106 BPM Atrial Rate : 106 BPM P-R Int : 168 ms QRS Dur : 076 ms QT Int : 328 ms P-R-T Axes : 056 020 024 degrees QTc Int : 435 ms SINUS TACHYCARDIA CANNOT RULE OUT INFERIOR INFARCT , AGE UNDETERMINED ABNORMAL ECG WHEN COMPARED WITH ECG OF 29-NOV-2017 14:52, MINIMAL CRITERIA FOR INFERIOR INFARCT ARE NOW PRESENT Confirmed by MD LIZET, RHONDA ([id number]) on 03/04/2019 5:14:58 PM Referred By: Confirmed By:RHONDA HINDS MD
[2019-03-04] MEDS: INSULIN (LEVEMIR) 100 UNITS/ML UNITS SQ SCH (21:00)
[2019-03-04] MEDS: VANCOMYCIN 1 GRAM (PRE-DOCKED) 1,000 MG/250 ML BAG IVPB SCH (21:00)
[2019-03-05] MEDS ORDERED: DEXTROSE 5%-WATER - 50 ML IVPB ONE ×3 (02:23→17:04)
[2019-03-05] MEDS ORDERED: PIPERACILLIN/TAZOBACTAM 3.375 GM VIAL IVPB ONE ×3 (02:23→17:04)
[2019-03-05] MEDS: PIPERACILLIN/TAZOB 3.375 GM 3.375 GM in DEXTROSE 5%-WATER - 50 ML IVPB SCH ×3 (02:28→17:21)
[2019-03-05] MEDS: HEPARIN NA (PORCINE) 5,000 UNITS/ML 1ML VIAL SQ SCH ×3 (06:30→21:26)
[2019-03-05] MEDS: INSULIN SLIDING SCALE (NOVOLOG) 1 VIAL SQ SCH ×4 (06:30→21:42)
[2019-03-05 07:06] LABS: BASO % 0.7 % (0-2.0); EOS % 0.7 % (0-4.5); HEMOGLOBIN 10.3 GM/dL (10.7-15.3); LYMPH % 20.1 % (8-40); MCH 30.3 pg (25.7-33.7); MCHC 33.2 g/dl (32.0-36.0); MEAN CELL VOLUME 91.4 fl (80-96); MEAN PLT VOLUME 9.5 fl (7.5-11.1); MONO % 6.2 % (3.8-10.2); NEUT % 72.3 % (42.8-82.8); PLATELET COUNT 332 K/MM3 (134-434); RDW 13.1 % (11.6-15.6)
--- NOTE | 2019-03-05 07:37 | PN ---
Progress Note (short form) - Note Progress Note: Podiatry F/U; Seen/evaluated at bedside NAD. Pain to right foot persistent. Has continued to have low grade temps overnight. States that Dr. Singh ( my partner) did an I and D at bedside. States since though still in pain. Denies any other comlaints. LIZET: R foot: pedal pulses weak, TG warm-warm, CFT brisk to toes. incision site noted on plantar 4th MPJ, surrounding erythema noted, severe pain on palpation, on compression continued drainage of purulence noted, minimal malodor Blood Cx: no growth Imp: 63 year old diabetic female with right foot abscess/celluliti P: Evaluated and reviewed Discussed findings with patient Labs pending this AM MRI read still pending Given continued temps and continued purulent drainage will likely need to go to the OR tomorrow for incision and drainage If tomorrows exam shows good resolve then can always cancel but for now will plan for flush. OR tomorrow with my partner Dr. Singh for full I and D Will need medical clearance. NPO placed Will follow.
--- NOTE | 2019-03-05 09:21 | PN ---
Progress Note, Physician History of Present Illness: spiking low grade fevers feels ok now post i and d awaiting for all cx reports mri seens and result noted - Current Medication List Current Medications: Active Medications Acetaminophen (Tylenol -) 650 mg PO Q6H PRN PRN Reason: PAIN Last Admin: 03/04/19 13:39 Dose: 650 mg Heparin Sodium (Porcine) (Heparin -) 5,000 unit SQ TID [facility] Last Admin: 03/05/19 06:30 Dose: 5,000 unit Vancomycin HCl (Vancomycin (Pre-Docked)) 1,000 mg in 250 mls @ 166.667 mls/hr IVPB Q24H [facility] Last Admin: 03/04/19 21:00 Dose: 166.667 mls/hr Piperacillin Sod/Tazobactam (Sod 3.375 gm/ Dextrose) 50 mls @ 100 mls/hr IVPB Q8H-IV [facility]; Protocol Last Admin: 03/05/19 02:28 Dose: 100 mls/hr Insulin Aspart (Novolog Vial Sliding Scale -) 1 vial SQ ACHS [facility]; Protocol Last Admin: 03/05/19 06:30 Dose: 2 units Insulin Detemir (Levemir Vial) 5 units SQ HS [facility] Last Admin: 03/04/19 21:00 Dose: 5 units Mupirocin (Bactroban 2% Ointment -) 1 applic TP DAILY [facility] Last Admin: 03/04/19 13:25 Dose: 1 applic - Objective Vital Signs: Vital Signs Temperature 99.4 F 03/05/19 06:28 Pulse Rate 89 03/05/19 06:28 Respiratory Rate 20 03/05/19 06:28 Blood Pressure 121/55 L 03/05/19 06:28 O2 Sat by Pulse Oximetry (%) 99 03/04/19 21:00 Constitutional: Yes: No Distress Eyes: Yes: Conjunctiva Clear Cardiovascular: Yes: Regular Rate and Rhythm Respiratory: Yes: Regular, CTA Bilaterally Gastrointestinal: Yes: Normal Bowel Sounds, Soft Musculoskeletal: Yes: WNL Extremities: Yes: WNL Wound/Incision: Yes: Dressing Dry and Intact Neurological: Yes: Alert, Oriented Psychiatric: Yes: Alert, Oriented Labs: CBC, BMP 03/05/19 06:10 03/03/19 06:00 INR, PTT INR 1.18 (0.83-1.09) H 03/02/19 23:00 Assessment/Plan ASSESSMENT/PLAN: 63 y/o F with PMH IDDM, HTN, HLD, [place], angina, CVA/TIA (with no residual deficits ), who presents to the ED c/o R foot pain over the past 2-3 days. R foot cellulitis rfoot abscess osteomyelitis of the rt foot uti dm plan wash out of the wound planned today await for cx reports abx will decide final abx after the cx reports are back
[2019-03-05] MEDS: MUPIROCIN 2% TOPICAL OINTMENT 22 GM TUBE TP SCH (09:22)
--- NOTE | 2019-03-05 10:45 | CONSULT ---
- Consultation REQUESTING PROVIDER: CONSULT REQUEST: We have been asked to surgically evaluate this patient for right foot wound. PCP:Edwina Jensen HISTORY OF PRESENT ILLNESS: The patient is a 63 yo female who presents to the ER for right foot infection. She states that she was having pain, redness, swelling. The patient denies any history of trauma. No fever and chills. The patient has had a history of left foot infection which was treated with an I&D by Dr. Stacy on 08/20/16. Since then she denies any further wounds to her lower extremities. The patient states that Dr. Singh has completed a bedside I&D yesterday and will possibly needs a further I&D in the OR. Fevers overall since admission have improved along with the the swelling and erythema. PMHx: diabetes, peripheral neuropathy, HTN, HLD, CVA/TIA in past, [place] PSHx: I&D of left foot Home Medications Medication Instructions Recorded Aspirin [ASA -] 81 mg PO DAILY 08/01/17 metFORMIN HCL [Metformin ER 1,000 mg PO BID 08/01/17 Osmotic] Atorvastatin Ca [Lipitor] 40 mg PO HS #30 tablet 08/02/17 Insulin (Levemir) [Levemir Flexpen 30 units SQ AM 03/02/19 -] Lisinopril [Prinivil] 20 mg PO DAILY 03/04/19 Allergies Allergy/AdvReac Type Severity Reaction Status Date / Time No Known Drug Allergies Allergy Verified 03/02/19 18:19 lactose AdvReac Verified 03/02/19 18:19 REVIEW OF SYSTEMS: CONSTITUTIONAL: Absent: fever, chills CARDIOVASCULAR: Absent: chest pain, RESPIRATORY: Absent: cough, shortness of breath GASTROINTESTINAL: Absent: nausea, vomiting GENITOURINARY: Absent: dysuria, hematuria, NEUROLOGIC: Absent: headache, Seizures PHYSICAL EXAM: GENERAL: Awake, alert, and fully oriented, in no acute distress. LUNGS: Clear to auscultation bilat anteriorly. HEART: Regular rate and rhythm. ABDOMEN: Soft, nontender, not distended. MUSCULOSKELETAL: Normal ROM at all joints. No bony deformities or tenderness. LOWER EXTREMITIES: LLE: +2 DP/PT pulse. +2 femoral/Popliteal pulse. No ulcers noted. RLE: +2 DP pulse (palpable) No palpable PT/ present with doppler. Erythema to forefoot and mild swelling. No evidence of ischemia. on plantar surface on base of right 4th toe with tenderness and open area. NEUROLOGICAL: Normal speech, gait not observed. PSYCH: Cooperative. Good eye contact. Appropriate mood and affect. Vital Signs Temperature 99.4 F 03/05/19 06:28 Pulse Rate 89 03/05/19 06:28 Respiratory Rate 20 03/05/19 06:28 Blood Pressure 121/55 L 03/05/19 06:28 O2 Sat by Pulse Oximetry (%) 99 03/04/19 21:00 Lab Results WBC 14.0 K/mm3 (4.0-10.0) H 03/05/19 06:10 RBC 3.40 M/mm3 (3.60-5.2) L 03/05/19 06:10 Hgb 10.3 GM/dL (10.7-15.3) L 03/05/19 06:10 Hct 31.0 % (32.4-45.2) L 03/05/19 06:10 MCV 91.4 fl (80-96) 03/05/19 06:10 MCHC 33.2 g/dl (32.0-36.0) 03/05/19 06:10 RDW 13.1 % (11.6-15.6) 03/05/19 06:10 Plt Count 332 K/MM3 (134-434) D 03/05/19 06:10 Sodium 137 mmol/L (136-145) 03/03/19 06:00 Potassium 3.8 mmol/L (3.5-5.1) 03/03/19 06:00 Chloride 103 mmol/L (98-107) 03/03/19 06:00 Carbon Dioxide 28 mmol/L (21-32) 03/03/19 06:00 Anion Gap 6 MMOL/L (8-16) L 03/03/19 06:00 BUN 12.5 mg/dL (7-18) 03/03/19 06:00 Creatinine 0.9 mg/dL (0.55-1.3) 03/03/19 06:00 Random Glucose 222 mg/dL (74-106) H 03/03/19 06:00 Calcium 8.6 mg/dL (8.5-10.1) 03/03/19 06:00 Blood Type B POSITIVE 03/02/19 23:00 Antibody Screen Negative 03/02/19 23:00 INR 1.18 (0.83-1.09) H 03/02/19 23:00 MRI RLE (03/03): soft tissue edema with phlegmon vs collection between 3/r toe. Faint bone marrow edema to the 3/4 phalange. Venous Duplex of LE(03/02): No evidence of DVT Arterial duplex of LE(03/02): No evidence of LLE: obstruction. RLE: mild to moderate atherosclerotic disease. possible stenosis of distal right popliteal/ posterior tibial artery. Problem List - Problems (1) Cellulitis of right foot Assessment/Plan: Right foot cellulitis/osteomyelitis, s/p bedside I&D by podiatry. Pt without any evidence of ischemia, poor RLE posterior tibilais pulses with flow on doppler. Palpable DP to RLE. s/p bedside I&D by podiatry and plan for possible further debridement in the OR tomorrow. At this point, no vascular surgical intervention recommended. Continue IV abx. ID to await final culture results to determine fdc antibiotics choice D/w Dr. Nava, follow as needed in wound clinic. Code(s): L03.115 - CELLULITIS OF RIGHT LOWER LIMB
--- NOTE | 2019-03-05 13:37 | PN ---
Physical Exam: SUBJECTIVE: Patient seen and examined at bedside. No events overnight. Pt complaining of R foot pain at site of drainage. Denies fever,chills, chest, sob , abd pain. OBJECTIVE: Vital Signs Temperature 98.2 F 03/05/19 10:00 Pulse Rate 90 03/05/19 10:00 Respiratory Rate 20 03/05/19 10:00 Blood Pressure 151/78 03/05/19 10:00 O2 Sat by Pulse Oximetry (%) 99 03/04/19 21:00 GENERAL: AAOx3. NAD. Comfortable HEENT: AT/NC. Dry mucus membranes. NECK: Trachea midline, full range of motion, supple. LUNGS: CTA B/L. No wheezes noted. HEART: Regular rate and rhythm, S1, S2 without murmur, rub or gallop. ABDOMEN: Soft, NT/ND. +BS EXTREMITIES: 2+ dp pulses, warm, well-perfused. No calf tenderness.Plantar aspect for 4th and 5th digit of R foot debrided. +erythema, +expressible purulent drainage. NEUROLOGICAL: Cranial nerves II through XII grossly intact. Normal speech, gait not observed. CBC, BMP 03/05/19 06:10 03/03/19 06:00 Active Medications Acetaminophen (Tylenol -) 650 mg PO Q6H PRN PRN Reason: PAIN Last Admin: 03/04/19 13:39 Dose: 650 mg Heparin Sodium (Porcine) (Heparin -) 5,000 unit SQ TID DMITRY Last Admin: 03/05/19 06:30 Dose: 5,000 unit Vancomycin HCl (Vancomycin (Pre-Docked)) 1,000 mg in 250 mls @ 166.667 mls/hr IVPB Q24H DMITRY Last Admin: 03/04/19 21:00 Dose: 166.667 mls/hr Piperacillin Sod/Tazobactam (Sod 3.375 gm/ Dextrose) 50 mls @ 100 mls/hr IVPB Q8H-IV DMITRY; Protocol Last Admin: 03/05/19 09:21 Dose: 100 mls/hr Insulin Aspart (Novolog Vial Sliding Scale -) 1 vial SQ ACHS DMITRY; Protocol Last Admin: 03/05/19 12:25 Dose: 2 units Insulin Detemir (Levemir Vial) 5 units SQ HS DMITRY Last Admin: 03/04/19 21:00 Dose: 5 units Mupirocin (Bactroban 2% Ointment -) 1 applic TP DAILY DMITRY Last Admin: 03/05/19 09:22 Dose: 1 applic IMAGING: * Head CT: vent dilation, sulcal widening, chronic small vessel ischemia. no acute changes * Lumbar spine CT: large soft tissue mass unchanged from previous. L nonobstructing nephrolithiasis 5mm * R Foot XR: Calcaneal spurring and minimal bunion formation by 1st MTP * LE duplex: mild to mod. atherosclerosis w/ possible stenosis within distal R popliteal/posterior tibial arteries * RLE MRI: Diffuse subQ soft tissue edema of the foot. Focal phlegmon vs. fluid collection/abscess between third and 4th toe proximal to middle phalanges and along the plantar aspect of the prox IP joint of 4th toe with focus of blooming artifact between 4th and 5th toe proximal IP joints could be due to focus of air or micrometallic artifact. Faint bone marrow edema of the 4th toe proximal and middle phalanges and possible distal phalanx in which setting of adjacent soft tissue infectious process is suspicious for OM. ASSESSMENT/PLAN: 63F with PMH IDDM, HTN, HLD, CT, angina, CVA/TIA (with no residual deficits), who presents to the ED c/o R foot pain over the past 2-3 days. #Sepsis 2/2 R foot cellulitis; s/p I&D by podiatry today, 03/04 -Cont Vanc 1gm IVPB QD, Zosyn 3.375 gm Q8H (Day 2 of IV abx) -UCx +LFGNB, BCx neg x24h -Per surg, no acute intervention needed for findings of stenosis remarkable on LE duplex; f/u outpatient in clinic -Per ID, cont IV abx until final culture reported; WCx +MSSA -Pod performed I&D today at bedside. 10cc of purulent drainage expressed from site. 4th interspace plantar diabetic ulcer probing to bone. Post-procedure wound culture obtained; Cont Bactroban to R food daily. If no improvement tomorrow, plan for OR I&D on Tuesday. #Osteomyelitis of R foot; s/p I&D -Per podiatry, able to probe to bone after drainage. -Elevated ESR, CRP -MRI remarkable for OM; I&D tomorrow in OR if no improvement #UTI -may explain initial AMS as per daughter. currently AAO x 3 -covered w/ zosyn currently -UCx +LFGNB #IDDM -ISS, BGM ACHS -A1c 11.4. poorly compliant #HTN-controlled. Cont home meds: Lisinopril 20 QD #HLD; cont home meds: Lipitor 40 PO HS #F/E/N -oral hydration -continue to follow lytes -NPO after midnight #PPX DVT: SQH #Dispo -cont to monitor on med-surg Visit type - Emergency Visit Emergency Visit: Yes ED Registration Date: 03/02/19 Care time: The patient presented to the Emergency Department on the above date and was hospitalized for further evaluation of their emergent condition. - New Patient This patient is new to me today: No - Critical Care Critical Care patient: No
--- NOTE | 2019-03-05 13:52 | PN ---
Teaching Attending Note Name of Resident: Kateryna Chowdary ATTENDING PHYSICIAN STATEMENT I saw and evaluated the patient. I reviewed the resident's note and discussed the case with the resident. I agree with the resident's findings and plan as documented. SUBJECTIVE:c/o foot pain. denies CP, SOB, fever, chills, N/V/C/D OBJECTIVE: Last Vital Signs Temp Pulse Resp BP Pulse Ox 98.2 F 90 20 151/78 99 03/05/19 10:00 03/05/19 10:03/05/19 10:03/05/19 10:03/04/19 21:00 General NAD Extremities R foot with foot swelling, warmth and erythema on dorsum of foot. Dorsum below 4th and 5th digit was debrided. small area that has discharge on palpation. area very tender. pulse intact ASSESSMENT AND PLAN: 63yo F wtih PMH DM, CVA, CAD, and previous OM of L foot presented to the ER with confusion and found to be septic due to R foot cellulitis with abscess and UTI 1. Acute metabolic encehalopathy- due to sepsis and infection. now resolved. at baseline. cont to treat infections. Head CT negative for acute pathology 2. Sepsis due to R foot abscess with +OM of 4th digit- MRI results reviewed with +OM. s/p bedside I&D of dorsal abscess by podiatry on 03/04. plan to go to OR tomorrow for further debridement. will need oysterman IV abx. notified CM of needs. will need tunneled catheter. on vanco/zosyn. vanco level prior to 4th dose. F/u Cx sent yesterday. F/u vascular consult of tibial artery stenosis seen on u/s and if CTA needed. unsure as pulses are palpable. ID and podiatry on board. 3. Acute cystitis- on vanco/zosyn. will f/u Cx 4. DM- uncontrolled. A1c 11.4. not compliant with medications. started levemir 5 units with good response. titrate to optimize sugars. dietary consult. bgm and iss. 5. CVA- on asa/statin 6. CAD- on asa/statin/acei 7. DVT ppx- heparin 8. will likely require tunneled catheter with oysterman IV abx. CM aware
[2019-03-05 14:40] VITALS: BMI 21.6
[2019-03-05] MEDS: VANCOMYCIN 1 GRAM (PRE-DOCKED) 1,000 MG/250 ML BAG IVPB SCH (21:26)
[2019-03-05] MEDS: INSULIN (LEVEMIR) 100 UNITS/ML UNITS SQ SCH (21:27)
[2019-03-05] MEDS: ACETAMINOPHEN 325 MG TABLET (FP) PO PRN (21:27)
[2019-03-06] MEDS ORDERED: DEXTROSE 5%-WATER - 50 ML IVPB ONE ×3 (00:32→16:39)
[2019-03-06] MEDS ORDERED: PIPERACILLIN/TAZOBACTAM 3.375 GM VIAL IVPB ONE ×3 (00:32→16:39)
[2019-03-06] MEDS: PIPERACILLIN/TAZOB 3.375 GM 3.375 GM in DEXTROSE 5%-WATER - 50 ML IVPB SCH ×3 (01:24→17:44)
[2019-03-06] MEDS: HEPARIN NA (PORCINE) 5,000 UNITS/ML 1ML VIAL SQ SCH ×3 (05:40→21:44)
[2019-03-06] MEDS: INSULIN SLIDING SCALE (NOVOLOG) 1 VIAL SQ SCH ×4 (06:06→21:48)
[2019-03-06 07:23] LABS: HEMATOCRIT 28.2 % (32.4-45.2); HEMOGLOBIN 9.7 GM/dL (10.7-15.3); MCH 31.1 pg (25.7-33.7); MCHC 34.3 g/dl (32.0-36.0); MEAN CELL VOLUME 90.6 fl (80-96); MEAN PLT VOLUME 9.2 fl (7.5-11.1); PLATELET COUNT 343 K/MM3 (134-434); RBC 3.12 M/mm3 (3.60-5.2); RDW 12.9 % (11.6-15.6); WHITE BLOOD COUNT 12.6 K/mm3 (4.0-10.0)
[2019-03-06] MEDS: MUPIROCIN 2% TOPICAL OINTMENT 22 GM TUBE TP SCH (09:27)
--- NOTE | 2019-03-06 11:35 | PN ---
Physical Exam: SUBJECTIVE: Patient seen and examined at bedside. Still complaints of R foot pain, however it is controlled. Denies n/v, cp, sob. Laron PO diet. No other events. OBJECTIVE: Vital Signs Temperature 99.1 F 03/06/19 10:00 Pulse Rate 95 H 03/06/19 10:00 Respiratory Rate 20 03/06/19 10:00 Blood Pressure 144/69 03/06/19 10:00 O2 Sat by Pulse Oximetry (%) 99 03/06/19 09:00 GENERAL: AAOx3. NAD. Comfortable HEENT: AT/NC. Dry mucus membranes. NECK: Trachea midline, full range of motion, supple. LUNGS: CTA B/L. No wheezes noted. HEART: Regular rate and rhythm, S1, S2 without murmur, rub or gallop. ABDOMEN: Soft, NT/ND. +BS EXTREMITIES: 2+ dp pulses, warm, well-perfused. No calf tenderness. Ulcer seen on plantar aspect of4th and 5th digit of R foot debrided. +expressible purulent drainage, +tenderness around ulcer NEUROLOGICAL: Cranial nerves II through XII grossly intact. Normal speech, gait not observed. CBCD WBC 12.6 K/mm3 (4.0-10.0) H 03/06/19 06:31 RBC 3.12 M/mm3 (3.60-5.2) L 03/06/19 06:31 Hgb 9.7 GM/dL (10.7-15.3) L 03/06/19 06:31 Hct 28.2 % (32.4-45.2) L 03/06/19 06:31 MCV 90.6 fl (80-96) 03/06/19 06:31 MCHC 34.3 g/dl (32.0-36.0) 03/06/19 06:31 RDW 12.9 % (11.6-15.6) 03/06/19 06:31 Plt Count 343 K/MM3 (134-434) 03/06/19 06:31 MPV 9.2 fl (7.5-11.1) 03/06/19 06:31 CMP Sodium 137 mmol/L (136-145) 03/03/19 06:00 Potassium 3.8 mmol/L (3.5-5.1) 03/03/19 06:00 Chloride 103 mmol/L (98-107) 03/03/19 06:00 Carbon Dioxide 28 mmol/L (21-32) 03/03/19 06:00 Anion Gap 6 MMOL/L (8-16) L 03/03/19 06:00 BUN 12.5 mg/dL (7-18) 03/03/19 06:00 Creatinine 0.9 mg/dL (0.55-1.3) 03/03/19 06:00 Calcium 8.6 mg/dL (8.5-10.1) 03/03/19 06:00 Total Bilirubin 0.9 mg/dL (0.2-1) 03/02/19 20:11 AST 9 U/L (15-37) L 03/02/19 20:11 ALT 13 U/L (13-61) 03/02/19 20:11 Alkaline Phosphatase 105 U/L (45-117) 03/02/19 20:11 Total Protein 8.2 g/dl (6.4-8.2) 03/02/19 20:11 Albumin 3.5 g/dl (3.4-5.0) 03/02/19 20:11 Active Medications Acetaminophen (Tylenol -) 650 mg PO Q6H PRN PRN Reason: PAIN Last Admin: 03/05/19 21:27 Dose: 650 mg Heparin Sodium (Porcine) (Heparin -) 5,000 unit SQ TID DMITRY Last Admin: 03/06/19 05:40 Dose: 5,000 unit Vancomycin HCl (Vancomycin (Pre-Docked)) 1,000 mg in 250 mls @ 166.667 mls/hr IVPB Q24H DMITRY Last Admin: 03/05/19 21:26 Dose: 166.667 mls/hr Piperacillin Sod/Tazobactam (Sod 3.375 gm/ Dextrose) 50 mls @ 100 mls/hr IVPB Q8H-IV DMITRY; Protocol Last Admin: 03/06/19 09:26 Dose: 100 mls/hr Insulin Aspart (Novolog Vial Sliding Scale -) 1 vial SQ ACHS DMITRY; Protocol Last Admin: 03/06/19 11:25 Dose: Not Given Insulin Detemir (Levemir Vial) 5 units SQ HS DMITRY Last Admin: 03/05/19 21:27 Dose: 5 units Mupirocin (Bactroban 2% Ointment -) 1 applic TP DAILY DMITRY Last Admin: 03/06/19 09:27 Dose: Not Given IMAGING: * Head CT: vent dilation, sulcal widening, chronic small vessel ischemia. no acute changes * Lumbar spine CT: large soft tissue mass unchanged from previous. L nonobstructing nephrolithiasis 5mm * R Foot XR: Calcaneal spurring and minimal bunion formation by 1st MTP * LE duplex: mild to mod. atherosclerosis w/ possible stenosis within distal R popliteal/posterior tibial arteries * RLE MRI: Diffuse subQ soft tissue edema of the foot. Focal phlegmon vs. fluid collection/abscess between third and 4th toe proximal to middle phalanges and along the plantar aspect of the prox IP joint of 4th toe with focus of blooming artifact between 4th and 5th toe proximal IP joints could be due to focus of air or micrometallic artifact. Faint bone marrow edema of the 4th toe proximal and middle phalanges and possible distal phalanx in which setting of adjacent soft tissue infectious process is suspicious for OM. ASSESSMENT/PLAN: 63F with PMH IDDM, HTN, HLD, [place], angina, CVA/TIA (with no residual deficits), who presents to the ED c/o R foot pain over the past 2-3 days. #Sepsis 2/2 R foot cellulitis; s/p I&D by podiatry done on 03/04 -Cont Vanc 1gm IVPB QD, Zosyn 3.375 gm Q8H (Day 4 of IV abx) -Wound cx, +Staph aureus, UCx +E.coli BCx neg x24h -Per surg, no acute intervention needed for findings of stenosis remarkable on LE duplex; f/u outpatient in clinic -F/u ID recs for further IV abx recs -Bedside I&D yesterday, 10cc of purulent drainage expressed from site. 4th interspace plantar diabetic ulcer probing to bone. Cont Bactroban to R food daily. OR I&D today; await podiatry recs #Osteomyelitis of R foot; s/p I&D -Per podiatry, able to probe to bone after drainage. -Elevated ESR, CRP -MRI suspicious for OM; I&D today in OR #UTI -covered w/ Zosyn currently; can lisa -UCx +E. coli #IDDM -ISS, BGM ACHS -A1c 11.4. poorly compliant #HTN-controlled. Cont home meds: Lisinopril 20 QD #HLD; cont home meds: Lipitor 40 PO HS #F/E/N -oral hydration -continue to follow lytes -NPO for I&D #PPX DVT: SQH #Dispo -cont to monitor on med-surg -Pt will need tunneled catheter for the remainder of her IV abx treatment. Spoke to CM, pt will be going home with VNS. Visit type - Emergency Visit Emergency Visit: Yes ED Registration Date: 03/02/19 Care time: The patient presented to the Emergency Department on the above date and was hospitalized for further evaluation of their emergent condition. - New Patient This patient is new to me today: No - Critical Care Critical Care patient: No
[2019-03-06] MEDS ORDERED: MIDAZOLAM HCL 2 MG/2 ML SINGLE DOSE VIAL ONE (13:16)
[2019-03-06] MEDS ORDERED: LIDOCAINE HCL 1%, 10 MG/ML (20ML VIAL) ONE (13:20)
[2019-03-06] MEDS ORDERED: PROPOFOL 20 ML ONE (13:26)
[2019-03-06] MEDS ORDERED: ONDANSETRON 4 MG/2 ML VIAL IVPUSH PRN (14:09)
--- NOTE | 2019-03-06 14:35 | PN ---
Progress Note, Physician History of Present Illness: stable no new issues - Current Medication List Current Medications: Active Medications Acetaminophen (Tylenol -) 650 mg PO Q6H PRN PRN Reason: PAIN Last Admin: 03/05/19 21:27 Dose: 650 mg Fentanyl (Sublimaze Injection -) 25 mcg IVPUSH [id number] PRN PRN Reason: PAIN-PACU ORDER X 4 DOSES ONLY Heparin Sodium (Porcine) (Heparin -) 5,000 unit SQ TID COUNT INCLUDES THE [facility] Last Admin: 03/06/19 05:40 Dose: 5,000 unit Vancomycin HCl (Vancomycin (Pre-Docked)) 1,000 mg in 250 mls @ 166.667 mls/hr IVPB Q24H COUNT INCLUDES THE [facility] Last Admin: 03/05/19 21:26 Dose: 166.667 mls/hr Piperacillin Sod/Tazobactam (Sod 3.375 gm/ Dextrose) 50 mls @ 100 mls/hr IVPB Q8H-IV DMITRY; Protocol Last Admin: 03/06/19 09:26 Dose: 100 mls/hr Lactated Ringer's (Lactated Ringers Solution) 1,000 mls @ 75 mls/hr IV ASDIR COUNT INCLUDES THE [facility] Insulin Aspart (Novolog Vial Sliding Scale -) 1 vial SQ ACHS COUNT INCLUDES THE [facility]; Protocol Last Admin: 03/06/19 11:25 Dose: Not Given Insulin Detemir (Levemir Vial) 5 units SQ HS COUNT INCLUDES THE [facility] Last Admin: 03/05/19 21:27 Dose: 5 units Mupirocin (Bactroban 2% Ointment -) 1 applic TP DAILY COUNT INCLUDES THE [facility] Last Admin: 03/06/19 09:27 Dose: Not Given Ondansetron HCl (Zofran Injection) 4 mg IVPUSH Q6H PRN PRN Reason: NAUSEA AND/OR VOMITING - Objective Vital Signs: Vital Signs Temperature 99.1 F 03/06/19 14:02 Pulse Rate 90 03/06/19 14:02 Respiratory Rate 16 03/06/19 14:02 Blood Pressure 152/79 03/06/19 14:02 O2 Sat by Pulse Oximetry (%) 98 03/06/19 14:02 Constitutional: Yes: No Distress, Calm Cardiovascular: Yes: Regular Rate and Rhythm Respiratory: Yes: Regular, CTA Bilaterally Gastrointestinal: Yes: Normal Bowel Sounds, Soft Musculoskeletal: Yes: WNL Extremities: Yes: WNL Neurological: Yes: Alert, Oriented Psychiatric: Yes: Alert, Oriented Labs: CBC, BMP 03/06/19 06:31 03/03/19 06:00 INR, PTT INR 1.18 (0.83-1.09) H 03/02/19 23:00 Assessment/Plan ASSESSMENT/PLAN: 63 y/o F with PMH IDDM, HTN, HLD, [place], angina, CVA/TIA (with no residual deficits ), who presents to the ED c/o R foot pain over the past 2-3 days. R foot cellulitis rfoot abscess osteomyelitis of the rt foot uti dm plan cx reports noted rest as per the team
--- NOTE | 2019-03-06 16:07 | OP ---
Operative Note - Note: Operative Date: 03/06/19 Pre-Operative Diagnosis: abscess, osteomyelitis right foot Operation: incision and drainage of abscess right foot Post-Operative Diagnosis: Same as Pre-op Surgeon: Negro Singh Anesthesia: Local, MAC Estimated Blood Loss (mls): 15 Operative Report Dictated: Yes
[2019-03-06] MEDS: ACETAMINOPHEN 325 MG TABLET (FP) PO PRN (17:42)
[2019-03-06] MEDS: LACTATED RINGERS SOLUTION 1,000 ML IV SCH (17:46)
--- NOTE | 2019-03-06 19:57 | PN ---
Teaching Attending Note Name of Resident: Kateryna Chowdary ATTENDING PHYSICIAN STATEMENT I saw and evaluated the patient. I reviewed the resident's note and discussed the case with the resident. I agree with the resident's findings and plan as documented. SUBJECTIVE: Feels well - some discomfort. No fever/chills. OBJECTIVE: Afebrile, Hemodynamically Stable. Last Vital Signs Temp Pulse Resp BP Pulse Ox 98.9 F 98 H 20 153/86 98 03/06/19 16:04 03/06/19 16:04 03/06/19 16:04 03/06/19 16:04 03/06/19 16:04 HEENT - Atraumatic, Normocephalic. Heart - S1, S2, RRR Lungs - clear to auscultation Abdomen - Soft, non-tender. Bowel Sounds normal Extremities - R foot dressed (ulcers on platar aspect of 2nd and 3rd digits with some purulence) Laboratory Results - last 24 hr 03/05/19 03/06/19 03/06/19 21:41 05:43 06:31 WBC 12.6 H RBC 3.12 L Hgb 9.7 L Hct 28.2 L MCV 90.6 MCH 31.1 MCHC 34.3 RDW 12.9 Plt Count 343 MPV 9.2 POC Glucometer 145 129 03/06/19 03/06/19 11:24 17:03 WBC RBC Hgb Hct MCV MCH MCHC RDW Plt Count MPV POC Glucometer 126 117 Current Medications Generic Name Dose Route Start Last Admin Trade Name Freq PRN Reason Stop Dose Admin Acetaminophen 650 mg 03/04/19 08:57 03/06/19 17:42 Tylenol - PO 650 mg Q6H PRN Administration PAIN Fentanyl 25 mcg 03/06/19 14:09 Sublimaze Injection - IVPUSH [id number] PRN PAIN-PACU ORDER X 4 DOSES ONLY Heparin Sodium (Porcine) 5,000 unit 03/03/19 06:00 03/06/19 14:23 Heparin - SQ Not Given TID DMITRY Vancomycin HCl 1,000 mg in 250 mls @ 166.667 mls/hr 03/03/19 22:00 03/05/19 21:26 Vancomycin (Pre-Docked) IVPB 166.667 mls/hr Q24H DMITRY Administration Piperacillin Sod/Tazobactam 50 mls @ 100 mls/hr 03/03/19 18:00 03/06/19 17:44 Sod 3.375 gm/ Dextrose IVPB 100 mls/hr Q8H-IV DMITRY Administration Protocol Lactated Ringer's 1,000 mls @ 75 mls/hr 03/06/19 14:15 03/06/19 17:46 Lactated Ringers Solution IV 75 mls/hr ASDIR DMITRY Administration Insulin Aspart 1 vial 03/03/19 07:00 03/06/19 17:32 Novolog Vial Sliding Scale - SQ Not Given ACHS DMITRY Protocol Insulin Detemir 5 units 03/03/19 22:00 03/05/19 21:27 Levemir Vial SQ 5 units HS DMITRY Administration Mupirocin 1 applic 03/04/19 10:00 03/06/19 09:27 Bactroban 2% Ointment - TP Not Given DAILY DMITRY Ondansetron HCl 4 mg 03/06/19 14:09 Zofran Injection IVPUSH Q6H PRN NAUSEA AND/OR VOMITING Oxycodone HCl 5 mg 03/06/19 16:08 Roxicodone - PO Q4H PRN PAIN LEVEL 1-5 Home Medications Medication Instructions Recorded Aspirin [ASA -] 81 mg PO DAILY 08/01/17 metFORMIN HCL [Metformin ER 1,000 mg PO BID 08/01/17 Osmotic] Atorvastatin Ca [Lipitor] 40 mg PO HS #30 tablet 08/02/17 Insulin (Levemir) [Levemir Flexpen 30 units SQ AM 03/02/19 -] Lisinopril [Prinivil] 20 mg PO DAILY 03/04/19 ASSESSMENT AND PLAN: 63 year old female with history of CVA, CAD, prior OM of L foot presented to the ER with confusion and found to be septic due to R foot cellulitis with abscess and UTI. 1. Acute Metabolic Encephalopathy - secondary to Sepsis due to R foot infection/ osteomyelitis - resolved. CT Head negative for acute pathology. 2. Sepsis secondary to R foot ulcer/osteomyelitis and UTI. MRI positive for OM s/p bedside I and D by Podiatry 03/04 Scheduled for OR for further debridement Wound Cx MSSA, Urine Cx EColi. On Zosyn/Vancomycin empirically Will need PICC and Abx recommendations by ID. 3. DM 2 - Uncontrolled, A1c 11.4 secondary to medication non-compliance. Started on Levemir and sliding scale insulin. 4. Hx CVA - Continue Aspirin/Statin 6. CAD - Continue Aspirin, Lisinopril DVT Px - Heparin SQ
[2019-03-06] MEDS: INSULIN (LEVEMIR) 100 UNITS/ML UNITS SQ SCH (21:44)
[2019-03-06] MEDS: VANCOMYCIN 1 GRAM (PRE-DOCKED) 1,000 MG/250 ML BAG IVPB SCH (21:44)
[2019-03-07] MEDS ORDERED: PIPERACILLIN/TAZOBACTAM 3.375 GM VIAL IVPB ONE ×3 (01:00→16:13)
[2019-03-07] MEDS ORDERED: DEXTROSE 5%-WATER - 50 ML IVPB ONE ×3 (01:00→16:13)
[2019-03-07] MEDS: ACETAMINOPHEN 325 MG TABLET (FP) PO PRN ×2 (01:08→10:51)
[2019-03-07] MEDS: oxyCODONE HCL 5 MG TABLET PO PRN (01:09)
[2019-03-07] MEDS: PIPERACILLIN/TAZOB 3.375 GM 3.375 GM in DEXTROSE 5%-WATER - 50 ML IVPB SCH ×3 (01:11→17:38)
[2019-03-07] MEDS: HEPARIN NA (PORCINE) 5,000 UNITS/ML 1ML VIAL SQ SCH ×4 (06:32→23:50)
[2019-03-07] MEDS: INSULIN SLIDING SCALE (NOVOLOG) 1 VIAL SQ SCH ×4 (06:33→23:48)
[2019-03-07 08:51] LABS: HEMATOCRIT 26.3 % (32.4-45.2); MCH 30.9 pg (25.7-33.7); MCHC 34.1 g/dl (32.0-36.0); MEAN CELL VOLUME 90.6 fl (80-96); MEAN PLT VOLUME 9.1 fl (7.5-11.1); PLATELET COUNT 325 K/MM3 (134-434); RDW 12.8 % (11.6-15.6); WHITE BLOOD COUNT 12.7 K/mm3 (4.0-10.0)
--- NOTE | 2019-03-07 09:17 | OP ---
DATE OF OPERATION: 03/06/2019 PREOPERATIVE DIAGNOSIS: Right foot abscess and cellulitis with osteomyelitis. POSTOPERATIVE DIAGNOSIS: Right foot abscess and cellulitis with osteomyelitis. PROCEDURE: Right foot incision and drainage. SURGEON: Negro Singh DPM MANAGER CHANGE: None. ANESTHESIA: IV sedation with local. HEMOSTASIS: Surgical dissection. ESTIMATED BLOOD LOSS: Minimal. COMPLICATIONS: None. DESCRIPTION OF PROCEDURE: The patient was brought to the operating room and placed on the operating table in the supine position. Following the induction of IV sedation, local anesthesia was achieved utilizing 10 mL of 2% lidocaine plain. The right foot was scrubbed, prepped, and draped in the usual sterile fashion. I elected to not use a tourniquet during the course of this procedure. Attention was directed to the right foot where there was a plantar 4th MPJ and 3rd and 4th interspace purulent and fluctuant area appreciated. I began by performing a 3-cm curvilinear incision at the plantar aspect of the 4th metatarsophalangeal joint. Upon incision, there was purulent material expressed from the wound. The incision was deepened using blunt dissection taking care to retract vital neural and vascular structures. All bleeders were cauterized and ligated as appropriate. A curved hemostat was used to dissect off planes, inspection for loculation, expressed all wounds. A second stab incision was made dorsally at the 4th metatarsal head to express purulence. Following conclusion of the procedure, the surgical site was copiously irrigated with sterile saline mixed with Bacitracin. Surgical site was packed with 0.25-inch Iodoform packing. The incision was loosely coapted utilizing 3-0 nylon in a simple interrupted suture fashion. All purulent material was subsequently removed. Following conclusion of the procedure, the surgical site ws covered with Xeroform and sterile compressive dressing was applied to the right foot consisting of sterile gauze, Kerlix, and an LUKAS wrap. Patient tolerated the procedure and anesthesia well without complications. She was transferred from the operating room to the recovery unit with vital signs stable and neurovasculature intact to the right foot. MARLENY [id number] cc: [facility]
[2019-03-07] MEDS: MUPIROCIN 2% TOPICAL OINTMENT 22 GM TUBE TP SCH (10:52)
[2019-03-07] MEDS ORDERED: INSULIN (NOVOLOG) ASPART 100 UNITS/ML 10ML VIAL ONE (11:50)
--- NOTE | 2019-03-07 12:23 | PN ---
Progress Note, Physician History of Present Illness: patient c/o of vomiting nauseous - Current Medication List Current Medications: Active Medications Acetaminophen (Tylenol -) 650 mg PO Q6H PRN PRN Reason: PAIN Last Admin: 03/07/19 10:51 Dose: 650 mg Fentanyl (Sublimaze Injection -) 25 mcg IVPUSH [id number] PRN PRN Reason: PAIN-PACU ORDER X 4 DOSES ONLY Heparin Sodium (Porcine) (Heparin -) 5,000 unit SQ TID [facility] Last Admin: 03/07/19 06:32 Dose: 5,000 unit Vancomycin HCl (Vancomycin (Pre-Docked)) 1,000 mg in 250 mls @ 166.667 mls/hr IVPB Q24H [facility] Last Admin: 03/06/19 21:44 Dose: 166.667 mls/hr Piperacillin Sod/Tazobactam (Sod 3.375 gm/ Dextrose) 50 mls @ 100 mls/hr IVPB Q8H-IV [facility]; Protocol Last Admin: 03/07/19 10:51 Dose: 100 mls/hr Lactated Ringer's (Lactated Ringers Solution) 1,000 mls @ 75 mls/hr IV ASDIR [facility] Last Admin: 03/06/19 17:46 Dose: 75 mls/hr Insulin Aspart (Novolog Vial Sliding Scale -) 1 vial SQ ACHS [facility]; Protocol Last Admin: 03/07/19 11:55 Dose: 2 units Insulin Detemir (Levemir Vial) 5 units SQ HS [facility] Last Admin: 03/06/19 21:44 Dose: 5 units Mupirocin (Bactroban 2% Ointment -) 1 applic TP DAILY [facility] Last Admin: 03/07/19 10:52 Dose: Not Given Ondansetron HCl (Zofran Injection) 4 mg IVPUSH Q6H PRN PRN Reason: NAUSEA AND/OR VOMITING Last Admin: 03/07/19 10:51 Dose: 4 mg Oxycodone HCl (Roxicodone -) 5 mg PO Q4H PRN PRN Reason: PAIN LEVEL 1-5 Last Admin: 03/07/19 01:09 Dose: 5 mg - Objective Vital Signs: Vital Signs Temperature 98.3 F 03/07/19 10:00 Pulse Rate 93 H 03/07/19 10:00 Respiratory Rate 20 03/07/19 10:00 Blood Pressure 152/78 03/07/19 10:00 O2 Sat by Pulse Oximetry (%) 99 03/07/19 09:00 Constitutional: Yes: Mild Distress Cardiovascular: Yes: Regular Rate and Rhythm Respiratory: Yes: Regular, CTA Bilaterally Gastrointestinal: Yes: Normal Bowel Sounds, Soft Musculoskeletal: Yes: WNL Extremities: Yes: Other Wound/Incision: Yes: Dressing Dry and Intact Neurological: Yes: Alert, Oriented Psychiatric: Yes: Alert, Oriented Labs: CBC, BMP 03/07/19 07:41 03/03/19 06:00 INR, PTT INR 1.18 (0.83-1.09) H 03/02/19 23:00 Assessment/Plan ASSESSMENT/PLAN: 63 y/o F with PMH IDDM, HTN, HLD, [place], angina, CVA/TIA (with no residual deficits ), who presents to the ED c/o R foot pain over the past 2-3 days. R foot cellulitis rfoot abscess osteomyelitis of the rt foot uti dm plan cx reports noted continue zosyn cause of vomiting-- if continues to vomit--npo and iv fluids await for wound cx from yesterdays surgery
[2019-03-07] MEDS ORDERED: RANITIDINE HCL 150 MG TABLET (FP) PO ONE (12:24)
[2019-03-07] MEDS: LACTATED RINGERS SOLUTION 1,000 ML IV SCH (13:26)
[2019-03-07] MEDS ORDERED: MAG HYDROX/AL HYDROX/SIMETH 30 ML UNIT-DOSE CUP PO ONE (13:27)
--- NOTE | 2019-03-07 13:41 | PN ---
Physical Exam: SUBJECTIVE: Patient seen and examined at bedside. Pt complaining of nausea and vomiting this afternoon. Denies cp, sob, abd pain, urinary/bowel symptoms. OBJECTIVE: Vital Signs Temperature 98.3 F 03/07/19 10:00 Pulse Rate 93 H 03/07/19 10:00 Respiratory Rate 20 03/07/19 10:00 Blood Pressure 152/78 03/07/19 10:00 O2 Sat by Pulse Oximetry (%) 99 03/07/19 09:00 GENERAL: AAOx3. NAD. Comfortable HEENT: AT/NC. Dry mucus membranes. NECK: Trachea midline, full range of motion, supple. LUNGS: CTA B/L. No wheezes noted. HEART: Regular rate and rhythm, S1, S2 without murmur, rub or gallop. ABDOMEN: Soft, NT/ND. +BS EXTREMITIES: 2+ dp pulses, warm, well-perfused. No calf tenderness. Ulcer seen on plantar aspect of4th and 5th digit of R foot debrided. +expressible purulent drainage, +tenderness around ulcer. R foot wrapped in LUKAS bandage, c/d/i. NEUROLOGICAL: Cranial nerves II through XII grossly intact. Normal speech, gait not observed. Laboratory Results - last 24 hr 03/06/19 03/06/19 03/07/19 17:03 21:47 06:33 WBC RBC Hgb Hct MCV MCH MCHC RDW Plt Count MPV POC Glucometer 117 279 127 03/07/19 03/07/19 07:41 11:53 WBC 12.7 H RBC 2.90 L Hgb 9.0 L Hct 26.3 L MCV 90.6 MCH 30.9 MCHC 34.1 RDW 12.8 Plt Count 325 MPV 9.1 POC Glucometer 170 Active Medications Acetaminophen (Tylenol -) 650 mg PO Q6H PRN PRN Reason: PAIN Last Admin: 03/07/19 10:51 Dose: 650 mg Fentanyl (Sublimaze Injection -) 25 mcg IVPUSH [id number] PRN PRN Reason: PAIN-PACU ORDER X 4 DOSES ONLY Heparin Sodium (Porcine) (Heparin -) 5,000 unit SQ TID [facility] Last Admin: 03/07/19 06:32 Dose: 5,000 unit Vancomycin HCl (Vancomycin (Pre-Docked)) 1,000 mg in 250 mls @ 166.667 mls/hr IVPB Q24H [facility] Last Admin: 03/06/19 21:44 Dose: 166.667 mls/hr Piperacillin Sod/Tazobactam (Sod 3.375 gm/ Dextrose) 50 mls @ 100 mls/hr IVPB Q8H-IV [facility]; Protocol Last Admin: 03/07/19 10:51 Dose: 100 mls/hr Lactated Ringer's (Lactated Ringers Solution) 1,000 mls @ 75 mls/hr IV ASDIR [facility] Last Admin: 03/07/19 13:26 Dose: 75 mls/hr Insulin Aspart (Novolog Vial Sliding Scale -) 1 vial SQ ACHS [facility]; Protocol Last Admin: 03/07/19 11:55 Dose: 2 units Insulin Detemir (Levemir Vial) 5 units SQ HS [facility] Last Admin: 03/06/19 21:44 Dose: 5 units Mupirocin (Bactroban 2% Ointment -) 1 applic TP DAILY [facility] Last Admin: 03/07/19 10:52 Dose: Not Given Ondansetron HCl (Zofran Injection) 4 mg IVPUSH Q6H PRN PRN Reason: NAUSEA AND/OR VOMITING Last Admin: 03/07/19 10:51 Dose: 4 mg Oxycodone HCl (Roxicodone -) 5 mg PO Q4H PRN PRN Reason: PAIN LEVEL 1-5 Last Admin: 03/07/19 01:09 Dose: 5 mg IMAGING: * Head CT: vent dilation, sulcal widening, chronic small vessel ischemia. no acute changes * Lumbar spine CT: large soft tissue mass unchanged from previous. L nonobstructing nephrolithiasis 5mm * R Foot XR: Calcaneal spurring and minimal bunion formation by 1st MTP * LE duplex: mild to mod. atherosclerosis w/ possible stenosis within distal R popliteal/posterior tibial arteries * RLE MRI: Diffuse subQ soft tissue edema of the foot. Focal phlegmon vs. fluid collection/abscess between third and 4th toe proximal to middle phalanges and along the plantar aspect of the prox IP joint of 4th toe with focus of blooming artifact between 4th and 5th toe proximal IP joints could be due to focus of air or micrometallic artifact. Faint bone marrow edema of the 4th toe proximal and middle phalanges and possible distal phalanx in which setting of adjacent soft tissue infectious process is suspicious for OM. ASSESSMENT/PLAN: 63F with PMH IDDM, HTN, HLD, [place], angina, CVA/TIA (with no residual deficits), who presents to the ED c/o R foot pain over the past 2-3 days. #Sepsis 2/2 R foot cellulitis/Osteomyelitis; s/p I&D x2 by podiatry done on (bedside) and 03/05 (in OR) -MRI RLE: +suspicious for OM -Cont Vanc 1gm IVPB QD, Zosyn 3.375 gm Q8H (Day 5 of IV abx) -Wound cx +Staph aureus, UCx +E.coli, BCx neg x96h -Per ID, wait for repeat wound cx taken during I&D in OR; will likely need 6-8 weeks of IV abx depending on cultures. Cont current mgmt for now #UTI -covered w/ Zosyn currently -UCx +E. coli #Possible stenosis within distal R popliteal/posterior tibial arteries -Per vasc surg, no acute intervention needed for findings of stenosis remarkable on LE duplex; f/u outpatient in clinic #IDDM; ISS, BGM ACHS, A1c 11.4. poorly compliant #HTN-controlled. Cont home meds: Lisinopril 20 QD #HLD; cont home meds: Lipitor 40 PO HS #F/E/N -oral hydration -continue to follow lytes -CLD #PPX DVT: SQH #Dispo -cont to monitor on med-surg -Pt will need tunneled catheter for the remainder of her IV abx treatment. Spoke to CM, pt will be going home with VNS. Visit type - Emergency Visit Emergency Visit: Yes ED Registration Date: 03/02/19 Care time: The patient presented to the Emergency Department on the above date and was hospitalized for further evaluation of their emergent condition. - New Patient This patient is new to me today: No - Critical Care Critical Care patient: No
--- NOTE | 2019-03-07 14:32 | PN ---
Progress Note (short form) - Note Progress Note: Anesthesia post op Pt seen and examined S: Vital Signs Temperature 98.3 F 03/07/19 10:00 Pulse Rate 93 H 03/07/19 10:00 Respiratory Rate 20 03/07/19 10:00 Blood Pressure 152/78 03/07/19 10:00 O2 Sat by Pulse Oximetry (%) 99 03/07/19 09:00 CBC, BMP 03/07/19 07:41 03/03/19 06:00 A/P:s/p I & D of foot Doing well post op Continue current care Kodi Laws MD.
[2019-03-07] MEDS ORDERED: METOCLOPRAMIDE HCL INJECTION 10 MG/2 ML VIAL IVPUSH ONE (14:35)
--- NOTE | 2019-03-07 15:26 | PN ---
Progress Note (short form) - Note Progress Note: 63 y/o female s/p right foot incision and drainage. IN bed during exam, states her stomach does not feel well. On and off bouts of n/v. Denies any complaints in the foot.Denies any other f/c/sob. O: Right foot dressing dry and intact, underlying incision site with sutures intact and packing plantarly, removed packing, no further purulent drainage noted, mild erythema noted periwound, mild edema, no streaking proximally A: Right foot abscess Right osteo P: Evaluated and reviewed WBC 12.7 Afebrile 24 hours. f/u cultures abx per ID Bedside packing pulled and wound flushed and redressed w/o complication Will f/u.
--- NOTE | 2019-03-07 16:31 | PN ---
Teaching Attending Note Name of Resident: Kateryna Chowdary ATTENDING PHYSICIAN STATEMENT I saw and evaluated the patient. I reviewed the resident's note and discussed the case with the resident. I agree with the resident's findings and plan as documented. SUBJECTIVE: Feels well post -op - some mild discomfort. No fever/chills. OBJECTIVE: Afebrile, Hemodynamically Stable. Last Vital Signs Temp Pulse Resp BP Pulse Ox 98.4 F 83 20 161/87 99 03/07/19 15:07 03/07/19 15:07 03/07/19 15:07 03/07/19 15:07 03/07/19 09:00 Heart - S1, S2, RRR Lungs - clear to auscultation Abdomen - Soft, non-tender. Bowel Sounds normal Extremities - R foot dressed - surgical site examined and dressed by Podiatry Laboratory Results - last 24 hr 03/06/19 03/06/19 03/07/19 17:03 21:47 06:33 WBC RBC Hgb Hct MCV MCH MCHC RDW Plt Count MPV POC Glucometer 117 279 127 03/07/19 03/07/19 07:41 11:53 WBC 12.7 H RBC 2.90 L Hgb 9.0 L Hct 26.3 L MCV 90.6 MCH 30.9 MCHC 34.1 RDW 12.8 Plt Count 325 MPV 9.1 POC Glucometer 170 Current Medications Generic Name Dose Route Start Last Admin Trade Name Freq PRN Reason Stop Dose Admin Acetaminophen 650 mg 03/04/19 08:57 03/07/19 10:51 Tylenol - PO 650 mg Q6H PRN Administration PAIN Fentanyl 25 mcg 03/06/19 14:09 Sublimaze Injection - IVPUSH [id number] PRN PAIN-PACU ORDER X 4 DOSES ONLY Heparin Sodium (Porcine) 5,000 unit 03/03/19 06:00 03/07/19 14:17 Heparin - SQ 5,000 unit TID [facility] Administration Piperacillin Sod/Tazobactam 50 mls @ 100 mls/hr 03/03/19 18:00 03/07/19 10:51 Sod 3.375 gm/ Dextrose IVPB 100 mls/hr Q8H-IV [facility] Administration Protocol Lactated Ringer's 1,000 mls @ 75 mls/hr 03/06/19 14:15 03/07/19 13:26 Lactated Ringers Solution IV 75 mls/hr ASDIR [facility] Administration Insulin Aspart 1 vial 03/03/19 07:00 03/07/19 11:55 Novolog Vial Sliding Scale - SQ 2 units ACHS [facility] Administration Protocol Insulin Detemir 5 units 03/03/19 22:00 03/06/19 21:44 Levemir Vial SQ 5 units HS [facility] Administration Metoclopramide HCl 10 mg 03/07/19 14:36 Reglan Injection - IVPUSH Q6H PRN NAUSEA AND/OR VOMITING Mupirocin 1 applic 03/04/19 10:00 03/07/19 10:52 Bactroban 2% Ointment - TP Not Given DAILY [facility] Oxycodone HCl 5 mg 03/06/19 16:08 03/07/19 01:09 Roxicodone - PO 5 mg Q4H PRN Administration PAIN LEVEL 1-5 ASSESSMENT AND PLAN: 63 year old female with history of CVA, CAD, prior OM of L foot presented to the ER with confusion and found to be septic due to R foot cellulitis with abscess and UTI. 1. Acute Metabolic Encephalopathy - secondary to Sepsis due to R foot infection/ osteomyelitis - resolved. CT Head negative for acute pathology. 2. Sepsis secondary to R foot ulcer/osteomyelitis and UTI. MRI positive for OM s/p bedside I and D by Podiatry 03/04 POD 1 s/p I and D abcess R Foot under GA Wound Cx MSSA, Urine Cx EColi. Surgical Cx still pending Was on Zosyn/Vancomycin empirically - ID awaiting surgical Cx prior to making recommendations for long-term Abx therapy. PICC requested. 3. DM 2 - Uncontrolled, A1c 11.4 secondary to medication non-compliance at home. Started on Levemir and sliding scale insulin. 4. Hx CVA - Continue Aspirin/Statin 6. CAD - Continue Aspirin, Lisinopril DVT Px - Heparin SQ
[2019-03-07] MEDS: INSULIN (LEVEMIR) 100 UNITS/ML UNITS SQ SCH (23:49)
[2019-03-07] MEDS: METOCLOPRAMIDE HCL INJECTION 10 MG/2 ML VIAL IVPUSH PRN (23:53)
[2019-03-08] MEDS ORDERED: PIPERACILLIN/TAZOBACTAM 3.375 GM VIAL IVPB ONE ×3 (03:30→17:28)
[2019-03-08] MEDS ORDERED: DEXTROSE 5%-WATER - 50 ML IVPB ONE ×3 (03:31→17:28)
[2019-03-08] MEDS: PIPERACILLIN/TAZOB 3.375 GM 3.375 GM in DEXTROSE 5%-WATER - 50 ML IVPB SCH ×3 (03:37→17:32)
[2019-03-08] MEDS: LACTATED RINGERS SOLUTION 1,000 ML IV SCH ×3 (03:38→19:08)
[2019-03-08] MEDS: HEPARIN NA (PORCINE) 5,000 UNITS/ML 1ML VIAL SQ SCH ×3 (05:49→23:10)
[2019-03-08] MEDS: INSULIN SLIDING SCALE (NOVOLOG) 1 VIAL SQ SCH ×4 (06:14→23:12)
[2019-03-08 06:49] LABS: HEMOGLOBIN 10.4 GM/dL (10.7-15.3); MCH 30.3 pg (25.7-33.7); MCHC 33.6 g/dl (32.0-36.0); MEAN CELL VOLUME 90.3 fl (80-96); MEAN PLT VOLUME 8.9 fl (7.5-11.1); PLATELET COUNT 421 K/MM3 (134-434); RBC 3.43 M/mm3 (3.60-5.2); RDW 13.1 % (11.6-15.6); WHITE BLOOD COUNT 15.6 K/mm3 (4.0-10.0)
[2019-03-08] MEDS ORDERED: VANCOMYCIN 1 GRAM (PRE-DOCKED) 1,000 MG/250 ML BAG IVPB ONE (07:29)
[2019-03-08] MEDS ORDERED: ACETAMINOPHEN 325 MG TABLET (FP) PO PRN (07:29)
[2019-03-08] MEDS: METOCLOPRAMIDE HCL INJECTION 10 MG/2 ML VIAL IVPUSH PRN ×2 (10:16→17:32)
[2019-03-08] MEDS: RANITIDINE HCL 150 MG TABLET (FP) PO SCH ×2 (10:17→23:10)
[2019-03-08] MEDS: MUPIROCIN 2% TOPICAL OINTMENT 22 GM TUBE TP SCH (10:26)
--- NOTE | 2019-03-08 10:53 | PN ---
Physical Exam: SUBJECTIVE: Patient seen and examined at bedside. Pt complaining of minimal pain. Does not feel hungry. Admits to some nausea, but denies abd pain. Per nurse, no acute events overnight. OBJECTIVE: Vital Signs Temperature 98.6 F 03/08/19 05:12 Pulse Rate 94 H 03/08/19 05:12 Respiratory Rate 20 03/08/19 05:12 Blood Pressure 153/94 03/08/19 05:12 O2 Sat by Pulse Oximetry (%) 97 03/07/19 21:00 GENERAL: AAOx3. NAD. Comfortable HEENT: AT/NC. Dry mucus membranes. NECK: Trachea midline, full range of motion, supple. LUNGS: CTA B/L. No wheezes noted. HEART: Regular rate and rhythm, S1, S2 without murmur, rub or gallop. ABDOMEN: Soft, NT/ND. +BS EXTREMITIES: 2+ dp pulses, warm, well-perfused. No calf tenderness. Ulcer seen on plantar aspect of 4th and 5th digit of R foot debrided. +expressible purulent drainage, +tenderness around ulcer. R foot wrapped in LUKAS bandage. NEUROLOGICAL: Cranial nerves II through XII grossly intact. Normal speech, gait not observed. Laboratory Results - last 24 hr 03/07/19 03/07/19 03/07/19 11:53 16:38 23:47 WBC RBC Hgb Hct MCV MCH MCHC RDW Plt Count MPV POC Glucometer 170 160 151 03/08/19 03/08/19 06:04 06:11 WBC 15.6 H RBC 3.43 L Hgb 10.4 L Hct 31.0 L D MCV 90.3 MCH 30.3 MCHC 33.6 RDW 13.1 Plt Count 421 D MPV 8.9 POC Glucometer 152 Active Medications Acetaminophen (Tylenol -) 650 mg PO Q6H PRN PRN Reason: PAIN 1-3 Fentanyl (Sublimaze Injection -) 25 mcg IVPUSH [id number] PRN PRN Reason: PAIN-PACU ORDER X 4 DOSES ONLY Stop: 03/09/19 07:28 Heparin Sodium (Porcine) (Heparin -) 5,000 unit SQ TID [facility] Lactated Ringer's (Lactated Ringers Solution) 1,000 mls @ 75 mls/hr IV ASDIR [facility] Last Admin: 03/08/19 10:19 Dose: Not Given Piperacillin Sod/Tazobactam (Sod 3.375 gm/ Dextrose) 50 mls @ 100 mls/hr IVPB Q8H-IV [facility]; Protocol Last Admin: 03/08/19 10:17 Dose: 100 mls/hr Insulin Aspart (Novolog Vial Sliding Scale -) 1 vial SQ ACHS [facility]; Protocol Insulin Detemir (Levemir Vial) 5 units SQ HS [facility] Metoclopramide HCl (Reglan Injection -) 10 mg IVPUSH Q6H PRN PRN Reason: NAUSEA AND/OR VOMITING Last Admin: 03/08/19 10:16 Dose: 10 mg Mupirocin (Bactroban 2% Ointment -) 1 applic TP DAILY [facility] Oxycodone HCl (Roxicodone -) 5 mg PO Q4H PRN PRN Reason: PAIN LEVEL 4-6 Last Admin: 03/07/19 01:09 Dose: 5 mg Ranitidine HCl (Zantac -) 150 mg PO BID [facility] Last Admin: 03/08/19 10:17 Dose: 150 mg IMAGING: * Head CT: vent dilation, sulcal widening, chronic small vessel ischemia. no acute changes * Lumbar spine CT: large soft tissue mass unchanged from previous. L nonobstructing nephrolithiasis 5mm * R Foot XR: Calcaneal spurring and minimal bunion formation by 1st MTP * LE duplex: mild to mod. atherosclerosis w/ possible stenosis within distal R popliteal/posterior tibial arteries * RLE MRI: Diffuse subQ soft tissue edema of the foot. Focal phlegmon vs. fluid collection/abscess between third and 4th toe proximal to middle phalanges and along the plantar aspect of the prox IP joint of 4th toe with focus of blooming artifact between 4th and 5th toe proximal IP joints could be due to focus of air or micrometallic artifact. Faint bone marrow edema of the 4th toe proximal and middle phalanges and possible distal phalanx in which setting of adjacent soft tissue infectious process is suspicious for OM. ASSESSMENT/PLAN: 63F with PMH IDDM, HTN, HLD, [place], angina, CVA/TIA (with no residual deficits), who presents to the ED c/o R foot pain over the past 2-3 days. #Sepsis 2/2 R foot cellulitis/Osteomyelitis; s/p I&D x2 by podiatry done on (bedside) and 03/05 (in OR) -MRI RLE: +suspicious for OM -Cont Vanc 1gm IVPB QD, Zosyn 3.375 gm Q8H (Day 5 of IV abx) -Wound cx +Staph aureus, UCx +E.coli, BCx neg x96h -Oxycodone 5 Q4H PRN for pain -Per ID, repeat wound cx +presumptive MSSA (taken during I&D in OR); will likely need 6-8 weeks of IV abx depending on cultures. -Per podiatry, plan to take down to OR tomorrow for second flush if WBC trend upwards or stay the same #UTI -covered w/ Zosyn currently -UCx +E. coli #Nausea; IV Reglan PRN, Ranitidine 150 BID #Possible stenosis within distal R popliteal/posterior tibial arteries -Per vasc surg, no acute intervention needed for findings of stenosis remarkable on LE duplex; f/u outpatient in clinic #IDDM; ISS, BGM ACHS, A1c 11.4. poorly compliant #HTN-controlled. Cont home meds: Lisinopril 20 QD #HLD; cont home meds: Lipitor 40 PO HS #F/E/N LR @ 75 -continue to follow lytes -Sodium-controlled diet; NPO after midnight #PPX DVT: SQH #Dispo -cont to monitor on med-surg -Pt will need tunneled catheter for the remainder of her IV abx treatment. Spoke to , pt will be going home with VNS. Visit type - Emergency Visit Emergency Visit: Yes ED Registration Date: 03/02/19 Care time: The patient presented to the Emergency Department on the above date and was hospitalized for further evaluation of their emergent condition. - New Patient This patient is new to me today: No - Critical Care Critical Care patient: No
--- NOTE | 2019-03-08 11:02 | PN ---
Teaching Attending Note Name of Resident: Kateryna Chowdary ATTENDING PHYSICIAN STATEMENT I saw and evaluated the patient. I reviewed the resident's note and discussed the case with the resident. I agree with the resident's findings and plan as documented. SUBJECTIVE: Feels well, no complaints. Mild epigastric discomfort. No nausea/ vomiting. No fever/chills OBJECTIVE: Afebrile, Hemodynamically Stable. Last Vital Signs Temp Pulse Resp BP Pulse Ox 98.6 F 94 H 20 153/94 97 03/08/19 05:12 03/08/19 05:12 03/08/19 05:12 03/08/19 05:12 03/07/19 21:00 Heart - S1, S2, RRR, SM Lungs - clear to auscultation Abdomen - Soft, non-tender. Bowel Sounds normal Extremities - R foot dressed - surgical site examined and dressed by Podiatry Laboratory Results - last 24 hr 03/07/19 03/07/19 03/07/19 11:53 16:38 23:47 WBC RBC Hgb Hct MCV MCH MCHC RDW Plt Count MPV POC Glucometer 170 160 151 03/08/19 03/08/19 06:04 06:11 WBC 15.6 H RBC 3.43 L Hgb 10.4 L Hct 31.0 L D MCV 90.3 MCH 30.3 MCHC 33.6 RDW 13.1 Plt Count 421 D MPV 8.9 POC Glucometer 152 Current Medications Generic Name Dose Route Start Last Admin Trade Name Freq PRN Reason Stop Dose Admin Acetaminophen 650 mg 03/08/19 07:29 Tylenol - PO Q6H PRN PAIN 1-3 Fentanyl 25 mcg 03/08/19 07:29 Sublimaze Injection - IVPUSH 03/09/19 07:28 [id number] PRN PAIN-PACU ORDER X 4 DOSES ONLY Heparin Sodium (Porcine) 5,000 unit 03/08/19 14:00 Heparin - SQ TID [facility] Lactated Ringer's 1,000 mls @ 75 mls/hr 03/08/19 07:29 03/08/19 10:19 Lactated Ringers Solution IV Not Given ASDIR [facility] Piperacillin Sod/Tazobactam 50 mls @ 100 mls/hr 03/08/19 10:00 03/08/19 10:17 Sod 3.375 gm/ Dextrose IVPB 100 mls/hr Q8H-IV [facility] Administration Protocol Insulin Aspart 1 vial 03/08/19 11:00 Novolog Vial Sliding Scale - SQ ACHS [facility] Protocol Insulin Detemir 5 units 03/08/19 22:00 Levemir Vial SQ HS [facility] Metoclopramide HCl 10 mg 03/07/19 14:36 03/08/19 10:16 Reglan Injection - IVPUSH 10 mg Q6H PRN Administration NAUSEA AND/OR VOMITING Mupirocin 1 applic 03/08/19 10:00 Bactroban 2% Ointment - TP DAILY [facility] Oxycodone HCl 5 mg 03/06/19 16:08 03/07/19 01:09 Roxicodone - PO 5 mg Q4H PRN Administration PAIN LEVEL 4-6 Ranitidine HCl 150 mg 03/08/19 10:00 03/08/19 10:17 Zantac - PO 150 mg BID [facility] Administration ASSESSMENT AND PLAN: 63 year old female with history of CVA, CAD, prior OM of L foot presented to the ER with confusion and found to be septic due to R foot cellulitis with abscess and UTI. 1. Acute Metabolic Encephalopathy - secondary to Sepsis due to R foot infection/ osteomyelitis - resolved. CT Head negative for acute pathology. 2. Sepsis secondary to R foot ulcer/osteomyelitis and UTI. MRI positive for OM s/p bedside I and D by Podiatry 03/04 POD 2 s/p I and D abscess R Foot under GA Wound Cx MSSA, Urine Cx EColi. Surgical Cx presumptive MSSA. Was on Zosyn/Vancomycin empirically - now narrowed to Zosyn - bump in leukocytosis today but afebrile ID awaiting surgical Cx prior to making recommendations for long-term Abx therapy. PICC requested. 3. DM 2 - Uncontrolled, A1c 11.4 secondary to medication non-compliance at home. Started on Levemir and sliding scale insulin. 4. Hx CVA - Continue Aspirin/Statin 6. CAD - Continue Aspirin, Lisinopril 7. Dyspepsia - will give trial of H2 Deonna. DVT Px - Heparin SQ
--- NOTE | 2019-03-08 11:04 | PN ---
Progress Note (short form) - Note Progress Note: 63 y/o female s/p right foot incision and drainage. IN bed during exam, states she still isnt feeling very well. Denies any pain in the foot. Denies any f/c/ sob. O: Right foot dressing dry and intact, underlying incision site open plantarly roughly .5 x .5 to allow for drainage, mild erythema noted plantarly and dorsally but not worsening, there is no purulence, no drainage noted to the open site and upon compression no purulence or drainage is yielded A: Right foot abscess Right osteo P: Evaluated and reviewed WBC elevated Patient may require a second flush of the area for residual infection Can plan to take down to the OR tomorrow evening pending her lab work; if WBC decreases then will hold off but if rises or stays same will take for secondary flush Will place NPO for tomorrow; can have breakfast. Will plan for OR tomorrow evening (after 4 PM. )
[2019-03-08] MEDS ORDERED: INSULIN (NOVOLOG) ASPART 100 UNITS/ML 10ML VIAL ONE (12:07)
[2019-03-08] MEDS: LISINOPRIL 20 MG TABLET (FP) PO SCH (12:25)
--- NOTE | 2019-03-08 15:38 | PN ---
Progress Note, Physician History of Present Illness: still not feeling well feels weak wbc has increased discussed with podiatry might take the patient for or tomorrow - Current Medication List Current Medications: Active Medications Acetaminophen (Tylenol -) 650 mg PO Q6H PRN PRN Reason: PAIN 1-3 Fentanyl (Sublimaze Injection -) 25 mcg IVPUSH [id number] PRN PRN Reason: PAIN-PACU ORDER X 4 DOSES ONLY Stop: 03/09/19 07:28 Heparin Sodium (Porcine) (Heparin -) 5,000 unit SQ TID [facility] Last Admin: 03/08/19 14:55 Dose: 5,000 unit Lactated Ringer's (Lactated Ringers Solution) 1,000 mls @ 75 mls/hr IV ASDIR [facility] Last Admin: 03/08/19 10:19 Dose: Not Given Piperacillin Sod/Tazobactam (Sod 3.375 gm/ Dextrose) 50 mls @ 100 mls/hr IVPB Q8H-IV [facility]; Protocol Last Admin: 03/08/19 10:17 Dose: 100 mls/hr Insulin Aspart (Novolog Vial Sliding Scale -) 1 vial SQ [facility]; Protocol Last Admin: 03/08/19 12:15 Dose: Not Given Insulin Detemir (Levemir Vial) 5 units SQ [facility] Lisinopril (Prinivil) 20 mg PO DAILY [facility] Last Admin: 03/08/19 12:25 Dose: 20 mg Metoclopramide HCl (Reglan Injection -) 10 mg IVPUSH Q6H PRN PRN Reason: NAUSEA AND/OR VOMITING Last Admin: 03/08/19 10:16 Dose: 10 mg Mupirocin (Bactroban 2% Ointment -) 1 applic TP DAILY [facility] Last Admin: 03/08/19 10:26 Dose: Not Given Oxycodone HCl (Roxicodone -) 5 mg PO Q4H PRN PRN Reason: PAIN LEVEL 4-6 Last Admin: 03/07/19 01:09 Dose: 5 mg Ranitidine HCl (Zantac -) 150 mg PO BID [facility] Last Admin: 03/08/19 10:17 Dose: 150 mg - Objective Vital Signs: Vital Signs Temperature 98.4 F 03/08/19 14:31 Pulse Rate 94 H 03/08/19 14:31 Respiratory Rate 18 03/08/19 14:31 Blood Pressure 158/90 03/08/19 14:31 O2 Sat by Pulse Oximetry (%) 97 03/08/19 09:00 Constitutional: Yes: Calm, Mild Distress Cardiovascular: Yes: Regular Rate and Rhythm Respiratory: Yes: Regular, CTA Bilaterally Gastrointestinal: Yes: Normal Bowel Sounds, Soft Musculoskeletal: Yes: WNL Extremities: Yes: Other Wound/Incision: Yes: Dressing Dry and Intact Neurological: Yes: Alert, Oriented Psychiatric: Yes: Alert, Oriented Labs: CBC, BMP 03/08/19 06:04 03/03/19 06:00 INR, PTT INR 1.18 (0.83-1.09) H 03/02/19 23:00 Assessment/Plan ASSESSMENT/PLAN: 63 y/o F with PMH IDDM, HTN, HLD, [place], angina, CVA/TIA (with no residual deficits ), who presents to the ED c/o R foot pain over the past 2-3 days. R foot cellulitis rfoot abscess osteomyelitis of the rt foot uti dm plan continue current abx await for sensitivities wound care rest as per the team monitor wbc
[2019-03-08] MEDS ORDERED: INSULIN (LEVEMIR) 100 UNITS/ML UNITS SQ SCH (22:00)
[2019-03-09] MEDS ORDERED: PIPERACILLIN/TAZOBACTAM 3.375 GM VIAL IVPB ONE ×2 (01:34→10:23)
[2019-03-09] MEDS ORDERED: DEXTROSE 5%-WATER - 50 ML IVPB ONE ×2 (01:35→10:23)
[2019-03-09] MEDS: PIPERACILLIN/TAZOB 3.375 GM 3.375 GM in DEXTROSE 5%-WATER - 50 ML IVPB SCH ×3 (01:38→19:05)
[2019-03-09] MEDS: oxyCODONE HCL 5 MG TABLET PO PRN (03:33)
[2019-03-09] MEDS: HEPARIN NA (PORCINE) 5,000 UNITS/ML 1ML VIAL SQ SCH ×3 (07:00→22:46)
[2019-03-09 07:47] LABS: HEMATOCRIT 31.4 % (32.4-45.2); HEMOGLOBIN 10.6 GM/dL (10.7-15.3); MCH 30.3 pg (25.7-33.7); MCHC 33.7 g/dl (32.0-36.0); MEAN CELL VOLUME 89.9 fl (80-96); PLATELET COUNT 432 K/MM3 (134-434); RDW 12.9 % (11.6-15.6); WHITE BLOOD COUNT 14.2 K/mm3 (4.0-10.0)
[2019-03-09] MEDS: INSULIN SLIDING SCALE (NOVOLOG) 1 VIAL SQ SCH ×4 (07:59→22:46)
[2019-03-09] MEDS: LACTATED RINGERS SOLUTION 1,000 ML IV SCH ×3 (07:59→22:34)
[2019-03-09] MEDS: LISINOPRIL 20 MG TABLET (FP) PO SCH (11:01)
[2019-03-09] MEDS: MUPIROCIN 2% TOPICAL OINTMENT 22 GM TUBE TP SCH (11:01)
[2019-03-09] MEDS: RANITIDINE HCL 150 MG TABLET (FP) PO SCH ×2 (11:01→22:46)
--- NOTE | 2019-03-09 13:37 | PN ---
Progress Note, Physician History of Present Illness: patient stable going for a washout today - Current Medication List Current Medications: Active Medications Acetaminophen (Tylenol -) 650 mg PO Q6H PRN PRN Reason: PAIN 1-3 Heparin Sodium (Porcine) (Heparin -) 5,000 unit SQ TID [facility] Last Admin: 03/09/19 07:00 Dose: 5,000 unit Lactated Ringer's (Lactated Ringers Solution) 1,000 mls @ 75 mls/hr IV ASDIR [facility] Last Admin: 03/09/19 07:59 Dose: Not Given Piperacillin Sod/Tazobactam (Sod 3.375 gm/ Dextrose) 50 mls @ 100 mls/hr IVPB Q8H-IV [facility]; Protocol Last Admin: 03/09/19 12:22 Dose: 100 mls/hr Insulin Aspart (Novolog Vial Sliding Scale -) 1 vial SQ ACHS [facility]; Protocol Last Admin: 03/09/19 12:21 Dose: Not Given Insulin Detemir (Levemir Vial) 5 units SQ HS [facility] Last Admin: 03/08/19 23:11 Dose: Not Given Lisinopril (Prinivil) 20 mg PO DAILY [facility] Last Admin: 03/09/19 11:01 Dose: 20 mg Metoclopramide HCl (Reglan Injection -) 10 mg IVPUSH Q6H PRN PRN Reason: NAUSEA AND/OR VOMITING Last Admin: 03/08/19 17:32 Dose: 10 mg Mupirocin (Bactroban 2% Ointment -) 1 applic TP DAILY [facility] Last Admin: 03/09/19 11:01 Dose: Not Given Oxycodone HCl (Roxicodone -) 5 mg PO Q4H PRN PRN Reason: PAIN LEVEL 4-6 Last Admin: 03/09/19 03:33 Dose: 5 mg Ranitidine HCl (Zantac -) 150 mg PO BID [facility] Last Admin: 03/09/19 11:01 Dose: 150 mg - Objective Vital Signs: Vital Signs Temperature 98.1 F 03/09/19 06:00 Pulse Rate 91 H 03/09/19 06:00 Respiratory Rate 18 03/09/19 06:00 Blood Pressure 156/82 03/09/19 06:00 O2 Sat by Pulse Oximetry (%) 97 03/08/19 21:00 Constitutional: Yes: No Distress, Calm Cardiovascular: Yes: Regular Rate and Rhythm Respiratory: Yes: Regular, CTA Bilaterally Gastrointestinal: Yes: Normal Bowel Sounds, Soft Musculoskeletal: Yes: WNL Extremities: Yes: Other Neurological: Yes: Alert, Oriented Psychiatric: Yes: Alert, Oriented Labs: CBC, BMP 03/09/19 06:40 03/03/19 06:00 INR, PTT INR 1.18 (0.83-1.09) H 03/02/19 23:00 Assessment/Plan ASSESSMENT/PLAN: 63 y/o F with PMH IDDM, HTN, HLD, [place], angina, CVA/TIA (with no residual deficits ), who presents to the ED c/o R foot pain over the past 2-3 days. R foot cellulitis rfoot abscess osteomyelitis of the rt foot uti dm plan patient to go on ceftriaxone 2gm daily for 6 weeks patient going for washout
--- NOTE | 2019-03-09 16:40 | PN ---
Physical Exam: SUBJECTIVE: Patient seen and examined at bedside. Pt with poor PO intake. Denies f/c, n/v. Has some mild abd pain. But no diarrhea/constipation. OBJECTIVE: Vital Signs Temperature 98.1 F 03/09/19 14:52 Pulse Rate 107 H 03/09/19 14:52 Respiratory Rate 20 03/09/19 14:52 Blood Pressure 138/73 03/09/19 14:52 O2 Sat by Pulse Oximetry (%) 98 03/09/19 09:00 GENERAL: AAOx3. NAD. Comfortable HEENT: AT/NC. Dry mucus membranes. NECK: Trachea midline, full range of motion, supple. LUNGS: CTA B/L. No wheezes noted. HEART: Regular rate and rhythm, S1, S2 without murmur, rub or gallop. ABDOMEN: Soft, NT/ND. +BS EXTREMITIES: 2+ dp pulses, warm, well-perfused. No calf tenderness. Ulcer seen on plantar aspect of 4th and 5th digit of R foot debrided. +expressible purulent drainage, +tenderness around ulcer. R foot wrapped in LUKAS bandage. NEUROLOGICAL: Cranial nerves II through XII grossly intact. Normal speech, gait not observed. CBC, BMP 03/09/19 06:40 03/03/19 06:00 Active Medications Acetaminophen (Tylenol -) 650 mg PO Q6H PRN PRN Reason: PAIN 1-3 Heparin Sodium (Porcine) (Heparin -) 5,000 unit SQ TID [facility] Last Admin: 03/09/19 14:17 Dose: Not Given Lactated Ringer's (Lactated Ringers Solution) 1,000 mls @ 75 mls/hr IV ASDIR [facility] Last Admin: 03/09/19 07:59 Dose: Not Given Piperacillin Sod/Tazobactam (Sod 3.375 gm/ Dextrose) 50 mls @ 100 mls/hr IVPB Q8H-IV [facility]; Protocol Last Admin: 03/09/19 12:22 Dose: 100 mls/hr Insulin Aspart (Novolog Vial Sliding Scale -) 1 vial SQ ACHS [facility]; Protocol Last Admin: 03/09/19 12:21 Dose: Not Given Insulin Detemir (Levemir Vial) 5 units SQ HS [facility] Last Admin: 03/08/19 23:11 Dose: Not Given Lisinopril (Prinivil) 20 mg PO DAILY [facility] Last Admin: 03/09/19 11:01 Dose: 20 mg Metoclopramide HCl (Reglan Injection -) 10 mg IVPUSH Q6H PRN PRN Reason: NAUSEA AND/OR VOMITING Last Admin: 03/08/19 17:32 Dose: 10 mg Mupirocin (Bactroban 2% Ointment -) 1 applic TP DAILY [facility] Last Admin: 03/09/19 11:01 Dose: Not Given Oxycodone HCl (Roxicodone -) 5 mg PO Q4H PRN PRN Reason: PAIN LEVEL 4-6 Last Admin: 03/09/19 03:33 Dose: 5 mg Ranitidine HCl (Zantac -) 150 mg PO BID [facility] Last Admin: 03/09/19 11:01 Dose: 150 mg IMAGING: * Head CT: vent dilation, sulcal widening, chronic small vessel ischemia. no acute changes * Lumbar spine CT: large soft tissue mass unchanged from previous. L nonobstructing nephrolithiasis 5mm * R Foot XR: Calcaneal spurring and minimal bunion formation by 1st MTP * LE duplex: mild to mod. atherosclerosis w/ possible stenosis within distal R popliteal/posterior tibial arteries * RLE MRI: Diffuse subQ soft tissue edema of the foot. Focal phlegmon vs. fluid collection/abscess between third and 4th toe proximal to middle phalanges and along the plantar aspect of the prox IP joint of 4th toe with focus of blooming artifact between 4th and 5th toe proximal IP joints could be due to focus of air or micrometallic artifact. Faint bone marrow edema of the 4th toe proximal and middle phalanges and possible distal phalanx in which setting of adjacent soft tissue infectious process is suspicious for OM. ASSESSMENT/PLAN: 63F with PMH IDDM, HTN, HLD, [place], angina, CVA/TIA (with no residual deficits), who presents to the ED c/o R foot pain over the past 2-3 days. #Sepsis 2/2 R foot cellulitis/Osteomyelitis; s/p I&D x2 by podiatry done on (bedside) and 03/05 (in OR) -MRI RLE: +suspicious for OM -Cont Vanc 1gm IVPB QD, Zosyn 3.375 gm Q8H (Day 5 of IV abx) -Wound cx +Staph aureus, UCx +E.coli, BCx neg -Oxycodone 5 Q4H PRN for pain -Per ID, plan to go on IV Ceftriaxone 2 gm QD x6 weeks upon d/c -Per podiatry, plan to take down to OR for washout #UTI -covered w/ Zosyn currently -UCx +E. coli #Nausea; IV Reglan PRN, Ranitidine 150 BID #Possible stenosis within distal R popliteal/posterior tibial arteries -Per vasc surg, no acute intervention needed for findings of stenosis remarkable on LE duplex; f/u outpatient in clinic #IDDM; ISS, BGM ACHS, A1c 11.4. poorly compliant #HTN-controlled. Cont home meds: Lisinopril 20 QD #HLD; cont home meds: Lipitor 40 PO HS #F/E/N LR @ 75 -continue to follow lytes -Sodium-controlled diet #PPX DVT: SQH #Dispo -cont to monitor on med-surg -Pt will be going home with PICC line and IV Abx with VNS Visit type - Emergency Visit Emergency Visit: Yes ED Registration Date: 03/02/19 Care time: The patient presented to the Emergency Department on the above date and was hospitalized for further evaluation of their emergent condition. - New Patient This patient is new to me today: No - Critical Care Critical Care patient: No
[2019-03-09] MEDS ORDERED: LIDOCAINE HCL 2% (20ML MULTI-DOSE VIAL) NR ONE (16:53)
[2019-03-09] MEDS ORDERED: PROPOFOL 20 ML ONE (18:09)
[2019-03-09] MEDS ORDERED: MIDAZOLAM HCL 2 MG/2 ML SINGLE DOSE VIAL ONE (18:10)
--- NOTE | 2019-03-09 18:24 | PN ---
Teaching Attending Note Name of Resident: Kateryna Chowdary ATTENDING PHYSICIAN STATEMENT I saw and evaluated the patient. I reviewed the resident's note and discussed the case with the resident. I agree with the resident's findings and plan as documented. SUBJECTIVE: Complains od mild epigastric discomfort. No nausea/vomiting. No fever/chills OBJECTIVE: Afebrile, Hemodynamically Stable. Last Vital Signs Temp Pulse Resp BP Pulse Ox 98.1 F 98 H 20 156/89 98 03/09/19 14:52 03/09/19 17:57 03/09/19 17:57 03/09/19 17:57 03/09/19 09:00 Heart - S1, S2, RRR, SM Lungs - clear to auscultation Abdomen - Soft, mild epigastric tenderness. Bowel Sounds normal Extremities - R foot dressed - surgical site examined and dressed by Podiatry. No calf tenderness. Laboratory Results - last 24 hr 03/08/19 03/09/19 03/09/19 23:07 06:40 07:04 WBC 14.2 H RBC 3.50 L Hgb 10.6 L Hct 31.4 L MCV 89.9 MCH 30.3 MCHC 33.7 RDW 12.9 Plt Count 432 MPV 9.0 POC Glucometer 227 217 03/09/19 03/09/19 12:25 16:25 WBC RBC Hgb Hct MCV MCH MCHC RDW Plt Count MPV POC Glucometer 193 195 Current Medications Generic Name Dose Route Start Last Admin Trade Name Freq PRN Reason Stop Dose Admin Acetaminophen 650 mg 03/08/19 07:29 Tylenol - PO Q6H PRN PAIN 1-3 Heparin Sodium (Porcine) 5,000 unit 03/08/19 14:00 03/09/19 14:17 Heparin - SQ Not Given TID [facility] Lactated Ringer's 1,000 mls @ 75 mls/hr 03/08/19 07:29 03/09/19 07:59 Lactated Ringers Solution IV Not Given ASDIR [facility] Piperacillin Sod/Tazobactam 50 mls @ 100 mls/hr 03/08/19 10:00 03/09/19 12:22 Sod 3.375 gm/ Dextrose IVPB 100 mls/hr Q8H-IV [facility] Administration Protocol Insulin Aspart 1 vial 03/08/19 11:00 03/09/19 16:47 Novolog Vial Sliding Scale - SQ Not Given ACHS [facility]S [facility]CLUDE [facility] BEDS AT THE [facility] Protocol Insulin Detemir 5 units 03/08/19 22:00 03/08/19 23:11 Levemir Vial SQ Not Given HS COUNTS INCLUDE 234 BEDS AT THE [facility] Lisinopril 20 mg 03/08/19 11:30 03/09/19 11:01 Prinivil PO 20 mg DAILY [facility] Administration Metoclopramide HCl 10 mg 03/07/19 14:36 03/08/19 17:32 Reglan Injection - IVPUSH 10 mg Q6H PRN Administration NAUSEA AND/OR VOMITING Mupirocin 1 applic 03/08/19 10:00 03/09/19 11:01 Bactroban 2% Ointment - TP Not Given DAILY [facility]CLUDE 234 BEDS AT [facility] Oxycodone HCl 5 mg 03/06/19 16:08 03/09/19 03:33 Roxicodone - PO 5 mg Q4H PRN Administration PAIN LEVEL 4-6 Ranitidine HCl 150 mg 03/08/19 10:00 03/09/19 11:01 Zantac - PO 150 mg BID [facility] Administration ASSESSMENT AND PLAN: 63 year old female with history of CVA, CAD, prior OM of L foot presented to the ER with confusion and found to be septic due to R foot cellulitis with abscess and UTI. 1. Acute Metabolic Encephalopathy - secondary to Sepsis due to R foot infection/ osteomyelitis - resolved. CT Head negative for acute pathology. 2. Sepsis secondary to R foot ulcer/osteomyelitis and UTI - sepsis resolved. MRI positive for OM s/p bedside I and D by Podiatry 03/04 POD 3 s/p I and D abscess R Foot under GA Wound Cx MSSA, Surgical Cx MSSA. Urine Cx EColi. Was on Zosyn/Vancomycin empirically - narrowed to Zosyn - now recommended for 6 weeks of IV ceftrixone by ID. PICC placed. Scheduled for further washout in OR later today by Podiatry. 3. DM 2 - Uncontrolled, A1c 11.4 secondary to medication non-compliance at home. Started on Levemir and sliding scale insulin. 4. Hx CVA - Continue Aspirin/Statin 6. CAD - Continue Aspirin, Lisinopril 7. Dyspepsia - Continue H2 Deonna. DVT Px - Heparin SQ
--- NOTE | 2019-03-09 18:53 | OP ---
Operative Note - Note: Operative Date: 03/09/19 Pre-Operative Diagnosis: Right foot abscess/osteo Operation: Right foot incision and drainage. Findings: see dictaiton Post-Operative Diagnosis: Same as Pre-op Surgeon: Dariel Thomason Anesthesia: Local, MAC Specimens Removed: wound culture Estimated Blood Loss (mls): 5 Operative Report Dictated: Yes
[2019-03-09] MEDS ORDERED: METOCLOPRAMIDE HCL INJECTION 10 MG/2 ML VIAL IVPUSH PRN (19:11)
[2019-03-09] MEDS ORDERED: ACETAMINOPHEN 325 MG TABLET (FP) PO PRN (19:11)
[2019-03-09] MEDS ORDERED: oxyCODONE HCL 5 MG TABLET PO PRN (19:11)
--- NOTE | 2019-03-09 20:35 | OP ---
DATE OF OPERATION: 03/09/2019 PREOPERATIVE DIAGNOSIS: Right foot abscess/osteomyelitis. POSTOPERATIVE DIAGNOSIS: Right foot abscess/osteomyelitis. PROCEDURE PERFORMED: Right foot incision and drainage. SURGEON: Dariel Thomason DPM ANESTHESIA: IV sedation, local injection INDICATION: This patient is a 63-year-old female with the above mentioned diagnosis. Patient exhausted all forms of conservative treatment and requires surgical intervention for the conditions listed above. After careful explanation of the risks, benefits, and complications for the proposed procedure, the patient signed the consent form. All questions and concerns were addressed at this time prior to taking patient to the OR. DESCRIPTION OF PROCEDURE: The patient was brought to the operating room and placed on the operating table in the supine position. A pneumatic ankle tourniquet was utilized for this procedure. Following IV sedation, local injection of 10 mL of 2% lidocaine plain was injected into the patient's right foot in local block type fashion with no complications. Following local anesthetic, the right foot was prepped and draped in normal sterile manner and the procedure began. Procedure number 1: Right foot incision and drainage. At this time attention was directed to the patient's right where there was noted to be a prior incision site dorsal and plantar. At this time, suture had been removed, and utilizing a number 15 blade, the area between the 3rd and 4th digit was then opened dorsally to plantarly going through the inner space to open the area of infection. At this time, there was noted to be a roughly 5 mL of purulent drainage coming from the dorsal aspect, and there was a small area of tracking proximally and tunneling proximally along the extensor tendon. This was then opened up utilizing a hemostat, and the wound was then flushed copiously with a pulse lavage. Following this, there was no further purulent drainage noted. Prior to the pulse lavage, a wound culture was taken and sent for cultures. Following the pulse lavage, the wound was closed in the inner space with 4-0 nylon but left open dorsally and plantarly. The wound was packed with 1/4-inch iodoform. The wound was dressed with 4x4s, ABDs, Adaptic, and DSD. Postoperative condition, the patient tolerated anesthesia and procedure well and transferred to recovery room with vital signs stable and neurovascular status intact to right foot. The patient will be followed up on the floor . MARLENY NARAYANAN/[id number]
[2019-03-09] MEDS: INSULIN (LEVEMIR) 100 UNITS/ML UNITS SQ SCH (22:46)
[2019-03-10] MEDS: HEPARIN NA (PORCINE) 5,000 UNITS/ML 1ML VIAL SQ SCH ×3 (06:24→22:10)
[2019-03-10] MEDS: INSULIN SLIDING SCALE (NOVOLOG) 1 VIAL SQ SCH ×4 (06:25→22:17)
--- NOTE | 2019-03-10 07:02 | PN ---
Progress Note (short form) - Note Progress Note: Podiatry F/U: Seen/evaluated at bedside NAD. Pain improved to right foot. Denies F/V/N/C/SOB/ CP. Afebrile. S/p R foot I&D x 2. LIZET: R foot: DP pulse 2/4, PT pulse 1/4, TG wnl. There are post-surgical incisions dorsal and plantar third interspace with packing in place, sutures coapted centrally, no purulent drainage, no fluctuance, ascending cellulitis much improved, no soft tissue crepitus, no signs of acute infection. Decreasing tenderness to palpation New OR Cx: pending Imp: 63 year old diabetic female with abscess right foot, s/p R foot I&D x 2 1. Packing removed today 2. Saline wet to dry applied after saline irrigation at bedside 3. Partial WB R foot with surgical shoe 4. PICC line in place, IV abx therapy for treatment of osteomyelitis 5. Will need home nursing services for local wound care. Will start with dakins wet to dry dressings changed every other day. 6. Would give another day of IV abx today prior to discharge. 7. If home services set up okay for discharge podiatrically tomorrow. Will follow up in wound healing center 03/13/19. Kyler Singh DPM
[2019-03-10 07:58] LABS: HEMOGLOBIN 10.6 GM/dL (10.7-15.3); MCH 30.1 pg (25.7-33.7); MCHC 33.1 g/dl (32.0-36.0); MEAN CELL VOLUME 91.1 fl (80-96); MEAN PLT VOLUME 8.9 fl (7.5-11.1); PLATELET COUNT 423 K/MM3 (134-434); RBC 3.51 M/mm3 (3.60-5.2); RDW 13.1 % (11.6-15.6); WHITE BLOOD COUNT 12.9 K/mm3 (4.0-10.0)
[2019-03-10] MEDS ORDERED: DEXTROSE 5%-WATER 200 ML IVPB ONE (08:39)
[2019-03-10] MEDS: CEFTRIAXONE 2 GM in DEXTROSE 5%-WATER 100 ML IVPB SCH (09:00)
[2019-03-10] MEDS: MUPIROCIN 2% TOPICAL OINTMENT 22 GM TUBE TP SCH (09:00)
[2019-03-10] MEDS: LISINOPRIL 20 MG TABLET (FP) PO SCH (09:00)
[2019-03-10] MEDS: RANITIDINE HCL 150 MG TABLET (FP) PO SCH ×2 (09:00→22:16)
[2019-03-10] MEDS ORDERED: CEFTRIAXONE 2 GM in DEXTROSE 5%-WATER 100 ML IVPB SCH (10:00)
[2019-03-10] MEDS: LACTATED RINGERS SOLUTION 1,000 ML IV SCH (11:25)
--- NOTE | 2019-03-10 12:21 | PN ---
Teaching Attending Note Name of Resident: Sharda Teixeira ATTENDING PHYSICIAN STATEMENT I saw and evaluated the patient. I reviewed the resident's note and discussed the case with the resident. I agree with the resident's findings and plan as documented. SUBJECTIVE: Patient has no complaints. OBJECTIVE: Vital Signs Period Temp Pulse Resp BP Sys/Hidalgo Pulse Ox Last 24 Hr 97.2 F-98.5 F 71-107 16-20 124-165/63-97 96-100 HEART: S1S2, RRR LUNGS: Clear ABDOMEN: Soft, non-tender, non-distended, normal BS EXTREMITIES: No edema Laboratory Results - last 24 hr 03/09/19 03/09/19 03/09/19 12:25 16:25 19:15 WBC RBC Hgb Hct MCV MCH MCHC RDW Plt Count MPV POC Glucometer 193 195 195 03/09/19 03/10/19 03/10/19 22:36 06:23 06:45 WBC 12.9 H RBC 3.51 L Hgb 10.6 L Hct 32.0 L MCV 91.1 MCH 30.1 MCHC 33.1 RDW 13.1 Plt Count 423 MPV 8.9 POC Glucometer 185 197 03/10/19 11:23 WBC RBC Hgb Hct MCV MCH MCHC RDW Plt Count MPV POC Glucometer 196 Current Medications Generic Name Dose Route Start Last Admin Trade Name Freq PRN Reason Stop Dose Admin Acetaminophen 650 mg 03/09/19 19:11 Tylenol - PO Q6H PRN PAIN 1-3 Heparin Sodium (Porcine) 5,000 unit 03/09/19 22:00 03/10/19 06:24 Heparin - SQ 5,000 unit TID [facility] Administration Ceftriaxone Sodium 2 gm/ 100 mls @ 200 mls/hr 03/10/19 10:00 03/10/19 09:00 Dextrose IVPB 200 mls/hr DAILY [facility] Administration Protocol Lactated Ringer's 1,000 mls @ 75 mls/hr 03/09/19 19:11 03/10/19 11:25 Lactated Ringers Solution IV 75 mls/hr ASDIR [facility] Administration Insulin Aspart 1 vial 03/09/19 22:00 03/10/19 11:27 Novolog Vial Sliding Scale - SQ 2 units ACHS [facility] Administration Protocol Insulin Detemir 5 units 03/09/19 22:00 03/09/19 22:46 Levemir Vial SQ Not Given HS [facility] Lisinopril 20 mg 03/10/19 10:00 03/10/19 09:00 Prinivil PO 20 mg DAILY [facility] Administration Metoclopramide HCl 10 mg 03/09/19 19:11 Reglan Injection - IVPUSH Q6H PRN NAUSEA AND/OR VOMITING Mupirocin 1 applic 03/10/19 10:00 03/10/19 09:00 Bactroban 2% Ointment - TP Not Given DAILY [facility] Oxycodone HCl 5 mg 03/09/19 19:11 03/10/19 01:09 Roxicodone - PO 5 mg Q4H PRN Administration PAIN LEVEL 4-6 Ranitidine HCl 150 mg 03/09/19 22:00 03/10/19 09:00 Zantac - PO 150 mg BID [facility] Administration ASSESSMENT AND PLAN: This is a 63 year old woman with a history of CAD, CVA, left foot osteomyelitis who presented to the ED with confusion. 1. Acute metabolic encephalopathy secondary to sepsis - Resolved 2. Sepsis secondary to MSSA right foot abscess with osteomyelitis, E. coli UTI - Sepsis resolved - s/p I&D of right foot abscess 03/04, 03/06, 03/09 - Continue ceftriaxone 2 g IV daily x 6 weeks - Has PICC - Plan for discharge tomorrow with VNS 3. Type 2 DM, uncontrolled - HbA1c 11.4 - Metformin held - Continue Levemir, Novolog sliding scale 4. History of CVA - Restart aspirin, Lipitor 5. CAD - Restart aspirin, Lipitor 6. Dyspepsia - Continue Zantac 7. Anemia, normocytic - Likely secondary to sepsis - Hemoglobin is stable - Further evaluation can be done as outpatient if needed
--- NOTE | 2019-03-10 12:44 | PN ---
Physical Exam: SUBJECTIVE: Patient seen and examined at bedside. Without complaint, just had bandage changed. Has been OOB ambulating per pt. OBJECTIVE: Vital Signs Period Temp Pulse Resp BP Sys/Hidalgo Pulse Ox Last 24 Hr 97.2 F-98.5 F 71-107 16-20 124-165/63-97 96-100 GENERAL: The patient is awake, alert, and fully oriented, in no acute distress. HEAD: Normal with no signs of trauma. EYES: PERRL, extraocular movements intact, sclera anicteric, conjunctiva clear. ENT: Ears normal, nares patent, oropharynx clear without exudates, moist mucous membranes. NECK: Trachea midline, supple. LUNGS: Breath sounds equal, clear to auscultation bilaterally, no wheezes, no crackles, no accessory muscle use. HEART: +tachycardic rate and rhythm, S1, S2 without murmur, rub or gallop. ABDOMEN: Soft, nontender, nondistended, normoactive bowel sounds EXTREMITIES: 1+ dp pulse R foot, +dorsal and plantar 3rd MT sutures, with mild erythema. without TTP. NEUROLOGICAL: Cranial nerves II through XII grossly intact. PSYCH: Normal mood, normal affect. SKIN: Warm, dry, normal turgor Laboratory Results 03/09/19 03/09/19 03/09/19 16:25 19:15 22:36 Plt Count MPV POC Glucometer 195 195 185 03/10/19 03/10/19 03/10/19 06:23 06:45 11:23 WBC 12.9 H RBC 3.51 L Hgb 10.6 L Hct 32.0 L MCV 91.1 MCH 30.1 MCHC 33.1 RDW 13.1 Plt Count 423 MPV 8.9 POC Glucometer 197 196 ASSESSMENT/PLAN: 63 year old female with history of CVA, CAD, DM2, prior OM of L foot presented to the ER with confusion and found to be septic due to R foot cellulitis with abscess and UTI. # Sepsis 2/2 R foot ulcer, osteo -POD 4 s/p I&D abscess R foot. -POD 1 s/p repeat I&D abscess R foot. -wound cx, surgical cx (+) MSSA. R foot transmetatarsal amp site gram stain, cx pending -has R PICC. for 6 week abx course of rocephin to start today. -podiatry: Dr. Singh. can d/c when have home services set up. c/w local wound care and dressing changes on d/c. -on roxicodone PRN for pain control -ID: Dr. Sainz #UTI -ucx (+) E.coli . sens to rocephin -currently on rocephin #DM2 -c/w levemir 5u sq HS -ISS, BGM #hx CVA -c/w asa, statin #CAD -c/w asa, lisinopril #F/E/N -will d/c IVF. tolerating diet -continue to follow lytes -diabetic/na diet #PPX DVT: hep sq tid GI: zantac #Dispo continue to monitor on med-surg Visit type - Emergency Visit Emergency Visit: No - New Patient This patient is new to me today: No - Critical Care Critical Care patient: No
[2019-03-10] MEDS: ASPIRIN 81 MG CHEWABLE TABLETS PO SCH (14:52)
--- NOTE | 2019-03-10 16:35 | PN ---
Progress Note, Physician History of Present Illness: Pt seen and examined. Events noted, labs/imaging results reviewed. She is s/p 2nd I+D and today states she is feeling better. Remains afebrile, denies abd pain/n/v, no SOB/CP. - Current Medication List Current Medications: Active Medications Acetaminophen (Tylenol -) 650 mg PO Q6H PRN PRN Reason: PAIN 1-3 Aspirin (Asa -) 81 mg PO DAILY [facility] Last Admin: 03/10/19 14:52 Dose: 81 mg Atorvastatin Calcium (Lipitor -) 40 mg PO HS [facility] Heparin Sodium (Porcine) (Heparin -) 5,000 unit SQ TID [facility] Last Admin: 03/10/19 14:52 Dose: 5,000 unit Ceftriaxone Sodium 2 gm/ (Dextrose) 100 mls @ 200 mls/hr IVPB DAILY [facility]; Protocol Last Admin: 03/10/19 09:00 Dose: 200 mls/hr Insulin Aspart (Novolog Vial Sliding Scale -) 1 vial SQ ACHS [facility]; Protocol Last Admin: 03/10/19 16:06 Dose: 2 units Insulin Detemir (Levemir Vial) 5 units SQ HS [facility] Last Admin: 03/09/19 22:46 Dose: Not Given Lisinopril (Prinivil) 20 mg PO DAILY [facility] Last Admin: 03/10/19 09:00 Dose: 20 mg Metoclopramide HCl (Reglan Injection -) 10 mg IVPUSH Q6H PRN PRN Reason: NAUSEA AND/OR VOMITING Mupirocin (Bactroban 2% Ointment -) 1 applic TP DAILY [facility] Last Admin: 03/10/19 09:00 Dose: Not Given Oxycodone HCl (Roxicodone -) 5 mg PO Q4H PRN PRN Reason: PAIN LEVEL 4-6 Last Admin: 03/10/19 01:09 Dose: 5 mg Ranitidine HCl (Zantac -) 150 mg PO BID [facility] Last Admin: 03/10/19 09:00 Dose: 150 mg - Objective Vital Signs: Vital Signs Temperature 98.7 F 03/10/19 14:19 Pulse Rate 92 H 03/10/19 14:19 Respiratory Rate 18 03/10/19 14:19 Blood Pressure 134/74 03/10/19 14:19 O2 Sat by Pulse Oximetry (%) 96 03/10/19 09:00 Constitutional: Yes: No Distress, Calm Cardiovascular: Yes: Regular Rate and Rhythm Respiratory: Yes: CTA Bilaterally Gastrointestinal: Yes: Normal Bowel Sounds, Soft Wound/Incision: Yes: Other (Dressing intact) Neurological: Yes: Alert Labs: CBC, BMP 03/10/19 06:45 03/03/19 06:00 INR, PTT INR 1.18 (0.83-1.09) H 03/02/19 23:00 Microbiology 03/09/19 20:40 Foot - Rt Transmetatarsal Amp. Site Gram Stain - Final 03/06/19 13:42 Foot - Right Gram Stain - Final 03/06/19 13:42 Foot - Right Wound Culture - Final Staphylococcus Aureus 03/02/19 18:30 Blood - Peripheral Venous Blood Culture - Final NO GROWTH AFTER 5 DAYS INCUBATION 03/02/19 18:50 Blood - Peripheral Venous Blood Culture - Final NO GROWTH AFTER 5 DAYS INCUBATION 03/04/19 09:30 Foot - Right Plantar Gram Stain - Final 03/04/19 09:30 Foot - Right Plantar Wound Culture - Final Staphylococcus Aureus 03/02/19 23:04 Urine - Urine Clean Catch Urine Culture - Final Escherichia Coli - ....Imaging X-ray: Report Reviewed MRI: Report Reviewed Problem List - Problems (1) Cellulitis of right foot Code(s): L03.115 - CELLULITIS OF RIGHT LOWER LIMB (2) UTI (urinary tract infection) Code(s): N39.0 - URINARY TRACT INFECTION, SITE NOT SPECIFIED (3) CAD (coronary artery disease) Code(s): I25.10 - ATHSCL HEART DISEASE OF [place] CORONARY ARTERY W/O ANG PCTRS (4) Diabetes mellitus with diabetic neuropathy Code(s): E11.40 - TYPE 2 DIABETES MELLITUS WITH DIABETIC NEUROPATHY, UNSP Qualifiers: Diabetes mellitus type: other specified (including MISSY) Diabetes mellitus correction insulin use: without correction use Qualified Code(s): E13.40 - Other specified diabetes mellitus with diabetic neuropathy, unspecified (5) Hyperlipidemia Code(s): E78.5 - HYPERLIPIDEMIA, UNSPECIFIED (6) Hypertension Code(s): I10 - ESSENTIAL (PRIMARY) HYPERTENSION Assessment/Plan Rt foot cellulitis/Abscess/OM s/p I+D x 2 UTI s/p Sepsis IDDM CAD Hx of CVA Anemia -- continue Ceftriaxone, PICC in place -- Wound care -- Podiatry following wbc trending down, afebrile continue monitor
[2019-03-10] MEDS ORDERED: INSULIN (NOVOLOG) ASPART 100 UNITS/ML 10ML VIAL ONE (20:41)
[2019-03-10] MEDS: INSULIN (LEVEMIR) 100 UNITS/ML UNITS SQ SCH (22:16)
[2019-03-10] MEDS: ATORVASTATIN CA 40 MG TABLET (FP) PO SCH (22:16)
--- NOTE | 2019-03-11 00:43 | PN ---
Progress Note (short form) - Note Progress Note: post op note, POD#1, s/p I&D right foot under MAC. VSS. No post anesthesia complications.
[2019-03-11] MEDS: INSULIN SLIDING SCALE (NOVOLOG) 1 VIAL SQ SCH ×4 (06:11→21:55)
[2019-03-11] MEDS: HEPARIN NA (PORCINE) 5,000 UNITS/ML 1ML VIAL SQ SCH ×3 (06:12→21:54)
[2019-03-11 07:41] LABS: BASO % 0.5 % (0-2.0); EOS % 0.9 % (0-4.5); HEMATOCRIT 30.9 % (32.4-45.2); HEMOGLOBIN 10.4 GM/dL (10.7-15.3); LYMPH % 22.5 % (8-40); MCH 30.6 pg (25.7-33.7); MCHC 33.7 g/dl (32.0-36.0); MEAN CELL VOLUME 90.7 fl (80-96); MEAN PLT VOLUME 8.8 fl (7.5-11.1); MONO % 5.5 % (3.8-10.2); NEUT % 70.6 % (42.8-82.8); PLATELET COUNT 386 K/MM3 (134-434); RDW 13.2 % (11.6-15.6); WHITE BLOOD COUNT 11.7 K/mm3 (4.0-10.0)
[2019-03-11 08:15] LABS: BLOOD UREA NITROGEN 15.8 mg/dL (7-18); CALCIUM 9.1 mg/dL (8.5-10.1); CREATININE 0.9 mg/dL (0.55-1.3); MAGNESIUM 1.9 mg/dL (1.8-2.4); PHOSPHOROUS 2.6 mg/dL (2.5-4.9)
[2019-03-11 08:27] LABS: POTASSIUM 2.8 mmol/L (3.5-5.1)
[2019-03-11] MEDS ORDERED: DEXTROSE 5%-WATER 100 ML IVPB ONE (09:08)
[2019-03-11] MEDS: CEFTRIAXONE 2 GM in DEXTROSE 5%-WATER 100 ML IVPB SCH (09:33)
[2019-03-11] MEDS: RANITIDINE HCL 150 MG TABLET (FP) PO SCH ×2 (09:33→21:55)
[2019-03-11] MEDS: LISINOPRIL 20 MG TABLET (FP) PO SCH (09:33)
[2019-03-11] MEDS: ASPIRIN 81 MG CHEWABLE TABLETS PO SCH (09:33)
[2019-03-11] MEDS: KCL 10 MEQ IVPB 10 MEQ/100 ML INFUS.BAG IVPB SCH ×3 (12:10→14:26)
[2019-03-11] MEDS: MUPIROCIN 2% TOPICAL OINTMENT 22 GM TUBE TP SCH (12:25)
--- NOTE | 2019-03-11 15:44 | PN ---
Progress Note, Physician History of Present Illness: Pt is alert, denies pain in her foot. Currently afebrile. Has no specific complaints. - Current Medication List Current Medications: Active Medications Acetaminophen (Tylenol -) 650 mg PO Q6H PRN PRN Reason: PAIN 1-3 Aspirin (Asa -) 81 mg PO DAILY [facility] Last Admin: 03/11/19 09:33 Dose: 81 mg Atorvastatin Calcium (Lipitor -) 40 mg PO HS [facility] Last Admin: 03/10/19 22:16 Dose: 40 mg Heparin Sodium (Porcine) (Heparin -) 5,000 unit SQ TID [facility] Last Admin: 03/11/19 14:26 Dose: 5,000 unit Ceftriaxone Sodium 2 gm/ (Dextrose) 100 mls @ 200 mls/hr IVPB DAILY [facility]; Protocol Last Admin: 03/11/19 09:33 Dose: 200 mls/hr Insulin Aspart (Novolog Vial Sliding Scale -) 1 vial SQ ACHS [facility]; Protocol Last Admin: 03/11/19 12:25 Dose: 2 units Insulin Detemir (Levemir Vial) 5 units SQ HS [facility] Last Admin: 03/10/19 22:16 Dose: 5 units Lisinopril (Prinivil) 20 mg PO DAILY [facility] Last Admin: 03/11/19 09:33 Dose: 20 mg Metoclopramide HCl (Reglan Injection -) 10 mg IVPUSH Q6H PRN PRN Reason: NAUSEA AND/OR VOMITING Mupirocin (Bactroban 2% Ointment -) 1 applic TP DAILY [facility] Last Admin: 03/11/19 12:25 Dose: Not Given Oxycodone HCl (Roxicodone -) 5 mg PO Q4H PRN PRN Reason: PAIN LEVEL 4-6 Last Admin: 03/10/19 01:09 Dose: 5 mg Ranitidine HCl (Zantac -) 150 mg PO BID [facility] Last Admin: 03/11/19 09:33 Dose: 150 mg - Objective Vital Signs: Vital Signs Temperature 98.7 F 03/11/19 14:40 Pulse Rate 99 H 03/11/19 14:40 Respiratory Rate 20 03/11/19 14:40 Blood Pressure 146/84 03/11/19 14:40 O2 Sat by Pulse Oximetry (%) 96 03/10/19 21:00 Constitutional: Yes: No Distress, Calm Cardiovascular: Yes: Regular Rate and Rhythm Respiratory: Yes: Regular Gastrointestinal: Yes: Normal Bowel Sounds, Soft Genitourinary: Yes: WNL Musculoskeletal: Yes: WNL Wound/Incision: Yes: Dressing Dry and Intact Neurological: Yes: Alert, Oriented Labs: CBC, BMP 03/11/19 06:49 03/11/19 06:49 INR, PTT INR 1.18 (0.83-1.09) H 03/02/19 23:00 Microbiology 03/09/19 20:40 Gram Stain - Final Foot - Rt Transmetatarsal Amp. Site Wound Culture - Preliminary Microbiology 03/09/19 20:40 Foot - Rt Transmetatarsal Amp. Site Gram Stain - Final 03/09/19 20:40 Foot - Rt Transmetatarsal Amp. Site Wound Culture - Preliminary 03/06/19 13:42 Foot - Right Gram Stain - Final 03/06/19 13:42 Foot - Right Wound Culture - Final Staphylococcus Aureus 03/02/19 18:30 Blood - Peripheral Venous Blood Culture - Final NO GROWTH AFTER 5 DAYS INCUBATION 03/02/19 18:50 Blood - Peripheral Venous Blood Culture - Final NO GROWTH AFTER 5 DAYS INCUBATION 03/04/19 09:30 Foot - Right Plantar Gram Stain - Final 03/04/19 09:30 Foot - Right Plantar Wound Culture - Final Staphylococcus Aureus 03/02/19 23:04 Urine - Urine Clean Catch Urine Culture - Final Escherichia Coli Problem List - Problems (1) Cellulitis of right foot Code(s): L03.115 - CELLULITIS OF RIGHT LOWER LIMB (2) UTI (urinary tract infection) Code(s): N39.0 - URINARY TRACT INFECTION, SITE NOT SPECIFIED (3) CAD (coronary artery disease) Code(s): I25.10 - ATHSCL HEART DISEASE OF [place] CORONARY ARTERY W/O ANG PCTRS (4) Diabetes mellitus with diabetic neuropathy Code(s): E11.40 - TYPE 2 DIABETES MELLITUS WITH DIABETIC NEUROPATHY, UNSP Qualifiers: Diabetes mellitus type: other specified (including MISSY) Diabetes mellitus assisted insulin use: without assisted use Qualified Code(s): E13.40 - Other specified diabetes mellitus with diabetic neuropathy, unspecified (5) Hyperlipidemia Code(s): E78.5 - HYPERLIPIDEMIA, UNSPECIFIED (6) Hypertension Code(s): I10 - ESSENTIAL (PRIMARY) HYPERTENSION Assessment/Plan Rt foot cellulitis/Abscess/OM s/p I+D x 2 UTI s/p Sepsis IDDM CAD Hx of CVA Anemia -- wbc trending down, pt afebrile, pain is controlled -- continue Ceftriaxone -- f/u intra-op cultures sent, previous culture results noted -- continue Wound care -- Podiatry follow up -- cbc, cmp at least weekly while on antibiotics wbc trending down, afebrile
--- NOTE | 2019-03-11 16:34 | PN ---
Progress Note, Physician Chief Complaint: right foot pain History of Present Illness: no acute events overnight. walking around halls - Current Medication List Current Medications: Active Medications Acetaminophen (Tylenol -) 650 mg PO Q6H PRN PRN Reason: PAIN 1-3 Aspirin (Asa -) 81 mg PO DAILY [facility] Last Admin: 03/11/19 09:33 Dose: 81 mg Atorvastatin Calcium (Lipitor -) 40 mg PO HS [facility] Last Admin: 03/10/19 22:16 Dose: 40 mg Heparin Sodium (Porcine) (Heparin -) 5,000 unit SQ TID [facility] Last Admin: 03/11/19 14:26 Dose: 5,000 unit Ceftriaxone Sodium 2 gm/ (Dextrose) 100 mls @ 200 mls/hr IVPB DAILY [facility]; Protocol Last Admin: 03/11/19 09:33 Dose: 200 mls/hr Insulin Aspart (Novolog Vial Sliding Scale -) 1 vial SQ ACHS [facility]; Protocol Last Admin: 03/11/19 12:25 Dose: 2 units Insulin Detemir (Levemir Vial) 5 units SQ HS [facility] Last Admin: 03/10/19 22:16 Dose: 5 units Lisinopril (Prinivil) 20 mg PO DAILY [facility] Last Admin: 03/11/19 09:33 Dose: 20 mg Metoclopramide HCl (Reglan Injection -) 10 mg IVPUSH Q6H PRN PRN Reason: NAUSEA AND/OR VOMITING Mupirocin (Bactroban 2% Ointment -) 1 applic TP DAILY [facility] Last Admin: 03/11/19 12:25 Dose: Not Given Oxycodone HCl (Roxicodone -) 5 mg PO Q4H PRN PRN Reason: PAIN LEVEL 4-6 Last Admin: 03/10/19 01:09 Dose: 5 mg Ranitidine HCl (Zantac -) 150 mg PO BID [facility] Last Admin: 03/11/19 09:33 Dose: 150 mg - Objective Vital Signs: Vital Signs Temperature 98.7 F 03/11/19 14:40 Pulse Rate 99 H 03/11/19 14:40 Respiratory Rate 20 03/11/19 14:40 Blood Pressure 146/84 03/11/19 14:40 O2 Sat by Pulse Oximetry (%) 96 03/10/19 21:00 Constitutional: Yes: Well Nourished, No Distress Cardiovascular: Yes: WNL, Regular Rate and Rhythm Respiratory: Yes: WNL, Regular, CTA Bilaterally Gastrointestinal: Yes: WNL, Normal Bowel Sounds, Soft Extremities: Yes: Other (right foot wrapped and in boot) Edema: No Labs: CBC, BMP 03/11/19 06:49 03/11/19 06:49 INR, PTT INR 1.18 (0.83-1.09) H 03/02/19 23:00 Problem List - Problems (1) Cellulitis of right foot Code(s): L03.115 - CELLULITIS OF RIGHT LOWER LIMB (2) UTI (urinary tract infection) Code(s): N39.0 - URINARY TRACT INFECTION, SITE NOT SPECIFIED (3) CAD (coronary artery disease) Code(s): I25.10 - ATHSCL HEART DISEASE OF [place] CORONARY ARTERY W/O ANG PCTRS (4) Diabetes Code(s): E11.9 - TYPE 2 DIABETES MELLITUS WITHOUT COMPLICATIONS (5) Hyperlipidemia Code(s): E78.5 - HYPERLIPIDEMIA, UNSPECIFIED (6) Hypertension Code(s): I10 - ESSENTIAL (PRIMARY) HYPERTENSION Assessment/Plan 63 year old woman with a history of CAD, CVA, left foot osteomyelitis who presented to the ED with confusion. 1) Sepsis 2/2 right foot MSSA osteomyelitis -s/p I&D of right foot abscess 03/04, 03/06, 03/09, 03/10 -continue ceftriaxone 2 g IV daily x 6 weeks via PICC line -plan was for DC today with VNS, patient wants to wait until the morning 2) E. coli UTI -sens to rocephin 3) Uncontrolled DM2 -on levemir, increase dose -resume metformin on DC -ISS for supplemental coverage 4) Hx CVA -on asa, statin 5) CAD -asa/statin/aceI 6) Normocytic Anemia -stable, monitor o/p 7) Hypokalemia -replace and check again tonight -check mag -if stable in AM, ok to DC
[2019-03-11] MEDS: ATORVASTATIN CA 40 MG TABLET (FP) PO SCH (21:54)
[2019-03-11] MEDS ORDERED: INSULIN (LEVEMIR) 100 UNITS/ML UNITS SQ SCH (22:00)
[2019-03-12] MEDS: HEPARIN NA (PORCINE) 5,000 UNITS/ML 1ML VIAL SQ SCH ×2 (06:00→13:51)
[2019-03-12] MEDS: INSULIN SLIDING SCALE (NOVOLOG) 1 VIAL SQ SCH ×3 (06:00→20:27)
[2019-03-12] MEDS ORDERED: DEXTROSE 5%-WATER 100 ML IVPB ONE (09:28)
[2019-03-12] MEDS: ASPIRIN 81 MG CHEWABLE TABLETS PO SCH (10:29)
[2019-03-12] MEDS: CEFTRIAXONE 2 GM in DEXTROSE 5%-WATER 100 ML IVPB SCH (10:29)
[2019-03-12] MEDS: LISINOPRIL 20 MG TABLET (FP) PO SCH (10:30)
[2019-03-12] MEDS: RANITIDINE HCL 150 MG TABLET (FP) PO SCH (10:30)
[2019-03-12 11:08] LABS: BLOOD UREA NITROGEN 12.1 mg/dL (7-18); CALCIUM 8.6 mg/dL (8.5-10.1); CREATININE 0.8 mg/dL (0.55-1.3); MAGNESIUM 1.9 mg/dL (1.8-2.4)
[2019-03-12 11:15] LABS: POTASSIUM 2.9 mmol/L (3.5-5.1)
[2019-03-12] MEDS ORDERED: POTASSIUM CHLORIDE TABS 20 MEQ TABLET.ER (FP) PO ONE (12:42)
[2019-03-12] MEDS ORDERED: INSULIN (NOVOLOG) ASPART 100 UNITS/ML 10ML VIAL ONE (12:49)
[2019-03-12] MEDS: MUPIROCIN 2% TOPICAL OINTMENT 22 GM TUBE TP SCH (12:52)
[2019-03-12] MEDS: KCL 10 MEQ IVPB 10 MEQ/100 ML INFUS.BAG IVPB SCH ×3 (12:52→14:56)
--- NOTE | 2019-03-12 13:14 | PN ---
Progress Note, Physician History of Present Illness: stable no new issues - Current Medication List Current Medications: Active Medications Acetaminophen (Tylenol -) 650 mg PO Q6H PRN PRN Reason: PAIN 1-3 Aspirin (Asa -) 81 mg PO DAILY [facility] Last Admin: 03/12/19 10:29 Dose: 81 mg Atorvastatin Calcium (Lipitor -) 40 mg PO HS [facility] Last Admin: 03/11/19 21:54 Dose: 40 mg Heparin Sodium (Porcine) (Heparin -) 5,000 unit SQ TID [facility] Last Admin: 03/12/19 06:00 Dose: 5,000 unit Ceftriaxone Sodium 2 gm/ (Dextrose) 100 mls @ 200 mls/hr IVPB DAILY [facility]; Protocol Last Admin: 03/12/19 10:29 Dose: 200 mls/hr Potassium Chloride (Potassium Chloride 10 Meq Premix Ivpb -) 10 meq in 100 mls @ 100 mls/hr IVPB Q60M [facility] Stop: 03/12/19 15:44 Last Admin: 03/12/19 12:52 Dose: 100 mls/hr Insulin Aspart (Novolog Vial Sliding Scale -) 1 vial SQ ACHS [facility]; Protocol Last Admin: 03/12/19 12:51 Dose: 4 units Insulin Detemir (Levemir Vial) 8 units SQ HS [facility] Last Admin: 03/11/19 21:50 Dose: 8 units Lisinopril (Prinivil) 20 mg PO DAILY [facility] Last Admin: 03/12/19 10:30 Dose: 20 mg Mupirocin (Bactroban 2% Ointment -) 1 applic TP DAILY [facility] Last Admin: 03/12/19 12:52 Dose: Not Given Oxycodone HCl (Roxicodone -) 5 mg PO Q4H PRN PRN Reason: PAIN LEVEL 4-6 Last Admin: 03/10/19 01:09 Dose: 5 mg Ranitidine HCl (Zantac -) 150 mg PO BID [facility] Last Admin: 03/12/19 10:30 Dose: 150 mg - Objective Vital Signs: Vital Signs Temperature 98.4 F 03/12/19 06:41 Pulse Rate 86 03/12/19 06:41 Respiratory Rate 18 03/12/19 06:41 Blood Pressure 121/55 L 03/12/19 06:41 O2 Sat by Pulse Oximetry (%) 96 03/11/19 21:00 Constitutional: Yes: No Distress, Calm Gastrointestinal: Yes: Normal Bowel Sounds, Soft Musculoskeletal: Yes: WNL Extremities: Yes: Other Wound/Incision: Yes: Dressing Dry and Intact Neurological: Yes: Alert, Oriented Psychiatric: Yes: Alert, Oriented Labs: CBC, BMP 03/11/19 06:49 03/12/19 09:36 INR, PTT INR 1.18 (0.83-1.09) H 03/02/19 23:00 Assessment/Plan ASSESSMENT/PLAN: 63 y/o F with PMH IDDM, HTN, HLD, RI, angina, CVA/TIA (with no residual deficits ), who presents to the ED c/o R foot pain over the past 2-3 days. R foot cellulitis rfoot abscess osteomyelitis of the rt foot uti dm plan continue current mgmt abx course to complete
--- NOTE | 2019-03-12 13:16 | PN ---
Progress Note (short form) - Note Progress Note: Podiatry F/U: Seen/evaluated at bedside NAD. No pain today. States she is for d/c later todya. LIZET: R foot: DP pulse 2/4, PT pulse 1/4, TG wnl. There are post-surgical incisions dorsal and plantar third interspace with packing in place, sutures coapted centrally, no purulent drainage, no fluctuance, ascending cellulitis with continued improvment, no soft tissue crepitus, no signs of acute infection. no tenderness to palpation noted New OR Cx: pending Imp: 63 year old diabetic female with abscess right foot, s/p R foot I&D x 2 Removed dressing looking very good Wet to dry dressing Clear from pod standpoint For d/c later today per notes and patient Can f/u with Dr. Singh in wound care tomorrow if d/c'd
--- NOTE | 2019-03-12 16:24 | PN ---
Teaching Attending Note Name of Resident: Kateryna Chowdary ATTENDING PHYSICIAN STATEMENT I saw and evaluated the patient. I reviewed the resident's note and discussed the case with the resident. I agree with the resident's findings and plan as documented. SUBJECTIVE:felt lightheaded and shaky this Am when sugar found to be 60. resolved with milk. denies Cp, SOB, fever, chills, N/V/c/D OBJECTIVE: Last Vital Signs Temp Pulse Resp BP Pulse Ox 98.6 F 107 H 18 131/68 96 03/12/19 13:44 03/12/19 13:44 03/12/19 13:44 03/12/19 13:44 03/12/19 09:00 General NAD ASSESSMENT AND PLAN: 63yo F wtih PMH DM, CVA, CAD, and previous OM of L foot presented to the ER with confusion and found to be septic due to R foot cellulitis with abscess and UTI 1. Acute metabolic encehalopathy- due to sepsis and infection. now resolved. at baseline. cont to treat infections. Head CT negative for acute pathology 2. Sepsis due to R foot abscess with +OM of 4th digit-s/p I&D 03/04, 03/06, 03/09. PICC placed for group home IV abx iwth Ceftriaxone for 6 weeks total. will need close follow up with ID and podiatry. 3. Severe hypokalemia- improved. will give Kcl IV and po and repeat. may need a few days 4. Acute cystitis- completed tx with IV abx 5. DM- uncontrolled. A1c 11.4. episode of hypoglycemia when levemir was increased. will decrease to 5 units. Emphasized on need to monitor sugars and keep log and bring to next PMD appt as will likely require more insulin. 6. CVA- on asa/statin 7. CAD- on asa/statin/acei 8. DVT ppx- heparin 9. awaiting repeat k. if improved can be d/c home
[2019-03-12 18:19] LABS: CALCIUM 8.9 mg/dL (8.5-10.1); POTASSIUM 3.4 mmol/L (3.5-5.1)
[2019-03-12 19:05] VITALS: BP 133/74; PULSE 90; TEMP 98.7
--- NOTE | 2019-03-13 06:29 | DS ---
Physical Exam: SUBJECTIVE: Patient seen and examined at bedside. No acute events overnight. OBJECTIVE: Vital Signs Period Temp Pulse Resp BP Sys/[place] Pulse Ox Last 24 Hr 98.4 F-98.7 F 86-107 18-18 121-133/55-88 96 PHYSICAL EXAM GENERAL: AAOx3. NAD. Comfortable HEENT: AT/NC. Dry mucus membranes. NECK: Trachea midline, full range of motion, supple. LUNGS: CTA B/L. No wheezes noted. HEART: Regular rate and rhythm, S1, S2 without murmur, rub or gallop. ABDOMEN: Soft, NT/ND. +BS EXTREMITIES: 2+ dp pulses, warm, well-perfused. No calf tenderness. Ulcer seen on plantar aspect of 4th and 5th digit of R foot debrided. +expressible purulent drainage, +tenderness around ulcer. R foot wrapped in LUKAS bandage. NEUROLOGICAL: Cranial nerves II through XII grossly intact. Normal speech, gait not observed. LABS Laboratory Results - last 24 hr 03/12/19 03/12/19 03/12/19 09:36 11:01 16:30 Sodium 139 137 Potassium 2.9 L* 3.4 L Chloride 98 97 L Carbon Dioxide 35 H 35 H Anion Gap 7 L 5 L BUN 12.1 13.0 Creatinine 0.8 1.0 Est GFR (CKD-EPI)AfAm 90.30 68.95 Est GFR (CKD-EPI)NonAf 77.91 59.49 POC Glucometer 237 Random Glucose 153 H 176 H Calcium 8.6 8.9 Magnesium 1.9 03/12/19 17:45 Sodium Potassium Chloride Carbon Dioxide Anion Gap BUN Creatinine Est GFR (CKD-EPI)AfAm Est GFR (CKD-EPI)NonAf POC Glucometer 186 Random Glucose Calcium Magnesium HOSPITAL COURSE: Date of Admission:03/02/19 IMAGING: * Head CT: vent dilation, sulcal widening, chronic small vessel ischemia. no acute changes * Lumbar spine CT: large soft tissue mass unchanged from previous. L nonobstructing nephrolithiasis 5mm * R Foot XR: Calcaneal spurring and minimal bunion formation by 1st MTP * LE duplex: mild to mod. atherosclerosis w/ possible stenosis within distal R popliteal/posterior tibial arteries * RLE MRI: Diffuse subQ soft tissue edema of the foot. Focal phlegmon vs. fluid collection/abscess between third and 4th toe proximal to middle phalanges and along the plantar aspect of the prox IP joint of 4th toe with focus of blooming artifact between 4th and 5th toe proximal IP joints could be due to focus of air or micrometallic artifact. Faint bone marrow edema of the 4th toe proximal and middle phalanges and possible distal phalanx in which setting of adjacent soft tissue infectious process is suspicious for OM. 63F with PMH IDDM, HTN, HLD, ND, angina, CVA/TIA (with no residual deficits), presented to the ED c/o R foot pain over the past 2-3 days found to have a diabetic foot wound ulcer. Upon admission, pt was started on empiric Vanc/ Zosyn. Xray of the R foot was done that showed calcaneal spurring and minimal bunion formation by 1st MTP. Pt was seen by podiatry and underwent a bedside I& D followed by MRI imaging results noted above, that was positive for osteomyelitis. Wound cx was positive for MSSA. Additionally, she was found to have UCx positive for E. coli. Throughout hospital course, pt's leukocytosis remained elevated and pt underwent a washout with podiatry. Due to pt's persistent drainage, a second I&D was done in the OR. Per ID eval, pt's IV abx was switched to Ceftriaxone, covering both organisms in wound culture and urine culture. Pt's hospital admission was complicated by persistent hypokalemia after which it was repleted via IV and PO KCl PRN. For the remainder of the hospital visit, pt's symptoms improved. She was discharged home with a PICC line and continuation of IV Ceftriaxone to complete a total of a 6 week abx course. She was advised to follow up with her PCP, podiatry, vasc surg, and ID for routine outpatient evaluation. She was also given daily wound care instructions with VNS. Date of Discharge: 03/13/19 Minutes to complete discharge: 35 Discharge Summary Reason For Visit: CELLULITIS,LYMPHANGITIS Condition: Improved - Instructions Diet, Activity, Other Instructions: You were seen the ED for complaints of right foot pain found to have osteomyelitis (infection of your bone). You were seen by the topographical drafter and had your infection surgically drained. During your hospital stay, you were also given IV antibiotics to treat your infection. Your symptoms improved. You are being discharged home with a PICC (peripherally inserted central catheter) line and visiting nurse services in order to continue the remainder of your IV antibiotic treatment. MEDICATIONS We have made the following adjustments to your medications: You will need to continue taking IV antibiotics through your PICC line. Please START taking the follow medication: Ceftriaxone 2 gm once a day via intravenously for 6 weeks. You have completed Day 11 of your antibiotics. Your last day of IV antibiotics will be on Tuesday , April 12, 2019. Please START taking Levemir 5U at night via injection. You will need to keep a daily log of your blood sugar levels and show this log to your primary care physician so that your insulin regimen may be adjusted accordingly. We have prescribed for you a glucometer, test strips, and needles to test your blood sugars at home. Please START taking Potassium Chloride 40 mEq once a day by mouth for 5 days. You will need to recheck your blood work (BMP) next week with your PCP. FOLLOW UP Please follow up with your primary care physician, Dr. Santana, within 1 week. You well need weekly blood work done (CBC/CMP) to make sure you blood count and kidney function are stable. Please follow up with your vascular surgeon, Dr. Nava, within 1 week for further evaluation of your foot wound. You also need routine evaluation of your lower extremity ultrasound results that showed narrowing of your arteries in your right leg. Please follow up with your topographical drafter, Dr. Singh, for post-op follow up within 1 week. Please follow up with your infectious disease doctor, Dr. Sainz as an outpatient. Referrals: Everton Sainz MD [Staff Physician] - Negro Singh MD [Staff Physician] - 1 Week Juliann Santana MD [Primary Care Provider] - 1 Week Sam Nava DO [Staff Physician] - Disposition: HOME - Home Medications Comprehensive Discharge Medication List: Ambulatory Orders Aspirin [ASA -] 81 mg PO DAILY 08/01/17 metFORMIN HCL [Metformin ER Osmotic] 1,000 mg PO BID 08/01/17 Atorvastatin Ca [Lipitor] 40 mg PO HS #30 tablet 08/02/17 Insulin (Levemir) [Levemir Flexpen -] 30 units SQ AM 03/02/19 Lisinopril [Prinivil] 20 mg PO DAILY 03/04/19 Insulin Glargine,Hum.rec.anlog [Lantus Solostar PEN (NF)] 5 units SQ HS #1 pen 03/12/19 Miscellaneous Medical Supply [Glucometer Device] 1 each .ROUTE ASDIR #1 kit [employer] [Glucometer Test Strips #100] 1 each .ROUTE ASDIR # 1 box 03/12/19 Potassium Chloride 20 meq PO DAILY #10 tablet.er 03/12/19 This patient is new to me today: No Emergency Visit: Yes ED Registration Date: 03/02/19 Care time: The patient presented to the Emergency Department on the above date and was hospitalized for further evaluation of their emergent condition. Critical Care patient: No - Discharge Referral Referred to [facility] Med P.C.: No Physician Referral: Sam Nava DO ([facility])
== END 2019-03-12 19:25 | disposition home or self-care (01) | DRG 720 ==
LOC: JER 18:09 → JERBED 21:16 → J7W 03-03 00:29
PROVIDERS: ADMIT Internal Medicine; ATTEND Internal Medicine
PROC: 0J9Q0ZX Drainage of Right Foot Subcutaneous Tissue and Fascia, Open Approach, Diagnostic (ICD-10-PCS; principal; 2019-03-06 13:00)
PROC: 0J9Q0ZX Drainage of Right Foot Subcutaneous Tissue and Fascia, Open Approach, Diagnostic (ICD-10-PCS; 2019-03-09)
PROC: 02HV33Z Insertion of Infusion Device into Superior Vena Cava, Percutaneous Approach (ICD-10-PCS; 2019-03-09)
PROC: B518ZZA Fluoroscopy of Superior Vena Cava, Guidance (ICD-10-PCS; 2019-03-09)
DX: A41.01 Sepsis due to Methicillin susceptible Staphylococcus aureus (principal); I25.119 Atherosclerotic heart disease of native coronary artery with unspecified angina pectoris; I10 Essential (primary) hypertension; G93.41 Metabolic encephalopathy; R41.0 Disorientation, unspecified; E11.65 Type 2 diabetes mellitus with hyperglycemia; N39.0 Urinary tract infection, site not specified; B96.20 Unspecified Escherichia coli [E. coli] as the cause of diseases classified elsewhere; F41.8 Other specified anxiety disorders; L02.611 Cutaneous abscess of right foot; E11.621 Type 2 diabetes mellitus with foot ulcer; L97.518 Non-pressure chronic ulcer of other part of right foot with other specified severity; E13.40 Other specified diabetes mellitus with diabetic neuropathy, unspecified; I25.2 Old myocardial infarction; R10.13 Epigastric pain; D64.9 Anemia, unspecified; E87.6 Hypokalemia; E11.69 Type 2 diabetes mellitus with other specified complication; M86.8X6 Other osteomyelitis, lower leg; Z91.14 Patient's other noncompliance with medication regimen; Z86.73 Personal history of transient ischemic attack (TIA), and cerebral infarction without residual deficits; Z79.4 Long term (current) use of insulin
CPT/HCPCS: 36415; 36569; 70450-TC; 72131-TC; 73630-TC-RT-FY; 73721-RT-TC; 80048; 80053; 80061; 81003; 82009; 82550; 82607; 82962; 83036; 83605; 83721; 83735; 84100; 84132; 84443; 84484; 85025; 85027; 85610; 85651; 85730; 86140; 86593; 86850; 86900; 86901; 87040; 87070; 87077; 87086; 87186; 87205; 93005; 93010; 93925-TC; 93970-TC; 94760; 99284-25; C1751; J0131; J1644; J7030

== ENCOUNTER 2019-03-15 17:00 | Inpatient (IN) | payer OTHER ==
--- NOTE | 2019-03-15 17:22 | PDOC ---
Rapid Medical Evaluation Chief Complaint: Pain Time Seen by Provider: 03/15/19 17:15 Medical Evaluation: Allergies Allergy/AdvReac Type Severity Reaction Status Date / Time No Known Drug Allergies Allergy Verified 03/15/19 17:15 lactose AdvReac Verified 03/15/19 17:15 03/15/19 17:17 I have performed a brief in-person evaluation of this patient. The patient presents with a chief complaint of: postop pain and drainage from right foot - had operative procedure for debridement osteo/ no meds since disharge last week- no insulin, + bloody diarhea x 2 days. Unable to reach PMD Pertinent physical exam findings: pale, shaking, + serrous drainage to foot with some odor. I have ordered the following: CMC, CMP, Acetone, Urine /UCG The patient will proceed to the ED for further evaluation. Discharge Disposition - Diagnosis Wound infection after surgery - Referrals - Patient Instructions - Post Discharge Activity
[2019-03-15 18:47] LABS: BASO % 1.2 % (0-2.0); EOS % 1.3 % (0-4.5); HEMATOCRIT 26.5 % (32.4-45.2); HEMOGLOBIN 8.7 GM/dL (10.7-15.3); LYMPH % 18.2 % (8-40); MCHC 32.8 g/dl (32.0-36.0); MEAN CELL VOLUME 91.5 fl (80-96); MEAN PLT VOLUME 8.7 fl (7.5-11.1); MONO % 6.1 % (3.8-10.2); NEUT % 73.2 % (42.8-82.8); PLATELET COUNT 351 K/MM3 (134-434); RDW 13.2 % (11.6-15.6); WHITE BLOOD COUNT 13.7 K/mm3 (4.0-10.0)
[2019-03-15 18:52] LABS: INR 1.06 (0.83-1.09); PROTHROMBIN TIME (PATIENT) 12.5 SEC (9.7-13.0)
[2019-03-15 19:29] LABS: ACETONE SERUM NEGATIVE (NEGATIVE)
[2019-03-15 19:40] LABS: ALBUMIN 2.8 g/dl (3.4-5.0); ALK PHOS 104 U/L (45-117); ANION GAP 9 MMOL/L (8-16); BILIRUBIN,TOTAL 0.2 mg/dL (0.2-1); BLOOD UREA NITROGEN 12.5 mg/dL (7-18); CALCIUM 9.3 mg/dL (8.5-10.1); CHLORIDE 100 mmol/L (98-107); CO2 30 mmol/L (21-32); GLUCOSE,RANDOM 233 mg/dL (74-106); POTASSIUM 3.1 mmol/L (3.5-5.1); SGOT/AST 10 U/L (15-37); SGPT/ALT 15 U/L (13-61); SODIUM 139 mmol/L (136-145); TOT PROT 7.7 g/dl (6.4-8.2)
[2019-03-15] MEDS ORDERED: BACITRACIN 0.9 GM PACKET ONE (20:24)
[2019-03-15] MEDS ORDERED: SODIUM CHLORIDE 1,633 ML IV ONE (20:35)
[2019-03-15] MEDS ORDERED: BACITRACIN 0.9 GM PACKET TP ONE (20:36)
[2019-03-15] MEDS ORDERED: VANCOMYCIN 1,000 MG in DEXTROSE 5%-WATER - 250 ML IVPB ONE (20:36)
[2019-03-15] MEDS ORDERED: PIPERACILLIN/TAZOB 4.5 GM 4.5 GM in DEXTROSE 5%-WATER 100 ML IVPB ONE (20:37)
--- NOTE | 2019-03-15 20:37 | PDOC ---
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 She was recently in the hospital for a couple weeks and an MRI showed that she has osteomyelitis of her foot. She was discharged with a picc line and ceftriaxone 2g daily. The patient returns to the hospital bc over the past 2 days her right foot has become red, extremely painful, and now there is discharge seeping through her dressing. The patient also complains of profuse watery diarrhea with occasional streaks of blood that have become very malodorous over the past 2 days. The daughter states she has never seen or smelled diarrhea like this before. The patient has been experiencing chills as well for the past two days. Yesterday despite being in the warm sun the patient was freezing all day. PCP: Dr. Juliann Santana Vascular: Dr. Nava ID: Dr. Sainz Sales Support Rep: Dr. Singh PSH: Past L foot I&D plantar wound - w/ abscess. done by Dr. Singh Allergies: Lactose, NKDA Social Hx: Lives at home with daughter, independent in her ADL. Denies smoking, drinking, or other substance usage. Past History - Past Medical History Allergies/Adverse Reactions: Allergies Allergy/AdvReac Type Severity Reaction Status Date / Time No Known Drug Allergies Allergy Verified 03/15/19 17:15 lactose AdvReac Verified 03/15/19 17:15 Home Medications: Ambulatory Orders Aspirin [ASA -] 81 mg PO DAILY 08/01/17 metFORMIN HCL [Metformin ER Osmotic] 1,000 mg PO BID 08/01/17 Atorvastatin Ca [Lipitor] 40 mg PO HS #30 tablet 08/02/17 Lisinopril [Prinivil] 20 mg PO DAILY 03/04/19 Insulin Glargine,Hum.rec.anlog [Lantus Solostar PEN (NF)] 5 units SQ HS #1 pen 03/12/19 Miscellaneous Medical Supply [Glucometer Device] 1 each .ROUTE ASDIR #1 kit Miscellaneous Medical Supply [Glucometer Test Strips #100] 1 each .ROUTE ASDIR # 1 box 03/12/19 Potassium Chloride 20 meq PO DAILY #10 tablet.er 03/12/19 Ceftriaxone 2 gm-D5w Bag 2 gm IV DAILY 03/15/19 Anemia: No Asthma: No Cancer: No Cardiac Disorders: Yes (ANGINA) CVA: No COPD: No CHF: No Diabetes: Yes (IDDM) GI Disorders: No Disorders: No HTN: Yes Hypercholesterolemia: Yes Liver Disease: No Psychiatric Problems: Yes (depression/ ANXIETY) Seizures: No Thyroid Disease: No - Family Disease History Family Disease History: Diabetes: Mother - Immunization History Immunization Up to Date: Yes - Suicide/Smoking/Psychosocial Hx Smoking Status: No Smoking History: Never smoked Have you smoked in the past 12 months: No Number of Cigarettes Smoked Daily: 0 Cigars Per Day: 0 Hx Alcohol Use: No Drug/Substance Use Hx: No Substance Use Type: None Hx Substance Use Treatment: No Review of Systems - Review of Systems Able to Perform ROS?: Yes Comments:: CONSTITUTIONAL: Present: Fever, chills Absent: no fatigue EYES: Absent: visual changes ENT: Absent: ear pain, no sore throat CARDIOVASCULAR: Absent: chest pain, no palpitations RESPIRATORY: Absent: cough, no SOB GI: Present: Diarrhea Absent: abdominal pain, no nausea, no vomiting, no constipation GENITOURINARY: Absent: dysuria, no frequency, no hematuria MUSKULOSKELETAL: Present: Arthralgia Absent: back pain, no myalgia SKIN: Present: rash NEURO: Absent: headache *Physical Exam - Vital Signs Last Vital Signs Temp Pulse Resp BP Pulse Ox 99.7 F H 99 H 18 134/68 99 03/15/19 17:17 03/15/19 17:17 03/15/19 17:17 03/15/19 17:17 03/15/19 18:39 - Physical Exam Comments: GENERAL: Well-appearing, well-nourished. No apparent distress. HEENT: Normocephalic, atraumatic. PERRL, EOM intact. CARDIOVASCULAR: Tachycardic rate. Normal S1, S2. Regular rhythm. PULMONARY: No evidence of respiratory distress. Lungs clear to auscultation bilaterally. No wheezing, rales or rhonchi. ABDOMEN: Soft, non-distended, non-tender. EXTREMITIES: Normal ROM in all four extremities. RIGHT FOOT: The dorsal aspect of the foot is erythematous, inflamed, and significantly TTP with an ill defined border of erythema. The plantar aspect of the proximal IP joints of the 3rd and 4th toes has an open wound which is draining pus. There is also erythema with an illdefined border on the plantar aspect of the foot. There is normal sensation diffusely throughout the foot. There is normal 2+ DP and PT pulses in the right foot. Normal ankle ROM. SKIN: Warm, dry. NEUROLOGICAL: No focal neurological deficits. ED Treatment Course - LABORATORY CBC & Chemistry Diagram: 03/15/19 18:10 03/15/19 21:22 - ADDITIONAL ORDERS Additional order review: Laboratory Results 03/15/19 03/15/19 18:10 18:10 PT with INR 12.50 INR 1.06 Sodium 139 Potassium 3.1 L Chloride 100 Carbon Dioxide 30 Anion Gap 9 BUN 12.5 Creatinine 1.0 Est GFR (CKD-EPI)AfAm 68.95 Est GFR (CKD-EPI)NonAf 59.49 Random Glucose 233 H Calcium 9.3 Total Bilirubin 0.2 AST 10 L ALT 15 Alkaline Phosphatase 104 Total Protein 7.7 Albumin 2.8 L Acetone, Qual Negative L 03/15/19 18:10 RBC 2.90 L MCV 91.5 MCHC 32.8 RDW 13.2 MPV 8.7 Neutrophils % 73.2 Lymphocytes % 18.2 Monocytes % 6.1 Eosinophils % 1.3 Basophils % 1.2 - RADIOLOGY Radiology Studies Ordered: Category Date Time Status CHEST X-RAY PORTABLE* [RAD] Stat Radiology 03/15/19 20:35 Ordered Medical Decision Making - Medical Decision Making Dolly Perez is a kind 63 yo F w a hx of recently diagnosed right foot osteomyelitis, IDDM, HTN, HLD, IN, angina, and 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 She was recently in the hospital for a couple weeks and an MRI showed that she has osteomyelitis of her foot. She was discharged with a picc line and ceftriaxone 2g daily. The patient returns to the hospital bc over the past 2 days her right foot has become red, extremely painful, and now there is discharge seeping through her dressing. The patient also complains of profuse watery diarrhea with occasional streaks of blood that have become very malodorous over the past 2 days. The daughter states she has never seen or smelled diarrhea like this before. The patient has been experiencing chills as well for the past two days. Yesterday despite being in the warm sun the patient was freezing all day. Vital Signs Temp Pulse Resp BP Pulse Ox 99.7 F H 99 H 18 134/68 99 03/15/19 17:17 03/15/19 17:17 03/15/19 17:17 03/15/19 17:17 03/15/19 18:39 DDx IBNLT: Osteomyelitis, cellulitis/erysipelas, necrotizing fasciitis, C- difficile, Sepsis from foot. Plan: ED adult septic workup - labs, cultures, urine, Abx, foot xr, C-diff toxin , admit to hospital for failed Abx therapy. I have placed a new dressing around the foot. Vanc/Zosyn started in the ER. Patient accepted for admission to the hospital. *DC/Admit/Observation/Transfer Diagnosis at time of Disposition: Wound infection after surgery - Discharge Dispostion Condition at time of disposition: Stable Decision to Admit order: Yes - Referrals - Patient Instructions - Post Discharge Activity
[2019-03-15] MEDS ORDERED: POTASSIUM CHLORIDE ORAL LIQUID 20 MEQ/15 ML PO ONE (21:09)
--- NOTE | 2019-03-15 21:10 | PDOC ---
Documentation entered by Hector Salazar SCRIBE, acting as scribe for Sander Martinez MD. Sander Martinez MD: This documentation has been prepared by the Martin grossman Elijah, SCRIBE, under my direction and personally reviewed by me in its entirety. I confirm that the documentation accurately reflects all work, treatment, procedures, and medical decision making performed by me. Attending Attestation - Resident Resident Name: Eric Villar - ED Attending Attestation I have performed the following: I have examined & evaluated the patient, The case was reviewed & discussed with the resident, I agree w/resident's findings & plan, Exceptions are as noted - HPI HPI: 03/15/19 20:58 The patient is a 63 year old female with reported past medical history of osteomyelitis, DM (non-compliant w/ meds for the past 3 months), CVA/TIA several years ago, HTN, angina, depression, bipolar, HLD, [place], L eye cataracts presents to the ED with right foot pain and discharge over the last two days. The patient was recently discovered to have osteomyelitis in her right leg and had washout by podiatry and was DC'ed home with PICC line for IV ceftriaxone, which she has been receiving. Over the course of the last two days the patient has had more red swelling, increased pain, and discharge that goes through her dressing. Pt denies fevers but endorses chills. Also complaining of watery brown diarrhea with occasional blood. Allergies: Lactose, NKDA PCP: Dr. Kayce Santana. - Physicial Exam PE: 03/15/19 20:58 GENERAL: Awake, alert, and fully oriented, in no acute distress. HEAD: No signs of trauma EYES: PERRLA, EOMI, sclera anicteric, conjunctiva clear ENT: Auricles normal inspection, hearing grossly normal, nares patent, oropharynx clear without exudates. Moist mucosa NECK: Nontender, no stepoffs, Normal ROM, supple, no lymphadenopathy, JVD, or masses LUNGS: Breath sounds equal, clear to auscultation bilaterally. No wheezes, and no crackles HEART: Regular rate and rhythm, normal S1 and S2, no murmurs, rubs or gallops ABDOMEN: Soft, nontender, normoactive bowel sounds. No guarding, no rebound. No masses EXTREMITIES: Normal range of motion, no edema. No clubbing or cyanosis. No cords, erythema, or tenderness NEUROLOGICAL: Cranial nerves II through XII intact. 5/5 strength and sensation in all extremities, Normal speech, normal gait, normal cerebellar function SKIN: R foot with ulcer + surrounding erythema and edema extending to dorsum of foot - Medical Decision Making 03/15/19 21:09 63 F with worsening R foot infection despite IV ceftriaxone at home. Has known osteomyelitis. - Labs, cultures - Broaden abx to vanc/zosyn - Admit for ID, vascular, and podiatry eval
[2019-03-15] MEDS ORDERED: POTASSIUM CHLORIDE ORAL LIQUID 20 MEQ/15 ML ONE (21:46)
[2019-03-15] MEDS ORDERED: PIPERACILLIN/TAZOB 4.5 GM 4.5 GM/100 ML BAG IVPB ONE (21:46)
[2019-03-15 21:54] LABS: URINE APPEARANCE CLEAR; URINE BILIRUBIN NEGATIVE (NEGATIVE); URINE COLOR YELLOW; URINE GLUCOSE (UA) TRACE (NEGATIVE); URINE KETONE NEGATIVE (NEGATIVE); URINE LEUK ESTERASE 1+ (NEGATIVE); URINE NITRITE NEGATIVE (NEGATIVE); URINE PROTEIN NEGATIVE (NEGATIVE); URINE UROBILINOGEN 0.2 mg/dL (0.2-1.0)
[2019-03-15 22:15] LABS: ALK PHOS 116 U/L (45-117); ANION GAP 8 MMOL/L (8-16); BILIRUBIN,TOTAL 0.3 mg/dL (0.2-1); BLOOD UREA NITROGEN 12.4 mg/dL (7-18); CALCIUM 9.7 mg/dL (8.5-10.1); CHLORIDE 97 mmol/L (98-107); CO2 32 mmol/L (21-32); GLUCOSE,RANDOM 283 mg/dL (74-106); POTASSIUM 3.2 mmol/L (3.5-5.1); SGOT/AST 7 U/L (15-37); SGPT/ALT 15 U/L (13-61); SODIUM 137 mmol/L (136-145); TOT PROT 8.3 g/dl (6.4-8.2)
--- NOTE | 2019-03-15 22:17 | HP ---
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 Pt was discharged on Tuesday with infusion nurse and visiting nurse set up for wound dressing. She got the follow up by the infusion nurse who taught her daughter by bedside how to give the infusions without missing a dose. The wound however remained unchanged because the nurse did not come in and started to produce malodorus and liquid soaking through the dressing. Pt also only received metformin for DM due to failure of authorization for the insulin at the pharmacy. They were also unable to follow the glucose level because they had no glucometer. They came in due to worsening chills and increased drainage of the wound. In ED, dressing change. 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 (chronic intermittent lightheadedness (x 1 year)) Cardiovascular: Yes: CAD, HTN, Hyperlipdemia, Other (angina) Pulmonary: No: Asthma, Bronchitis, Cancer, COPD, O2 Dependent, Pneumonia, Previously Intubated, Pulmonary Embolus, Pulmonary Fibrosis, Sleep Apnea, Other Psych: Yes: Depression ENT: Yes: Other (blind left eye) Endocrine: Yes: Diabetes Mellitus - Past Surgical History Past Surgical History: Yes: None - Smoking History Smoking history: Never smoked Have you smoked in the past 12 months: No Aproximately how many cigarettes per day: 0 - Alcohol/Substance Use Hx Alcohol Use: No Home Medications - Allergies Allergies/Adverse Reactions: Allergies Allergy/AdvReac Type Severity Reaction Status Date / Time No Known Drug Allergies Allergy Verified 03/15/19 17:15 lactose AdvReac Verified 03/15/19 17:15 - Home Medications Home Medications: Ambulatory Orders Aspirin [ASA -] 81 mg PO DAILY 08/01/17 metFORMIN HCL [Metformin ER Osmotic] 1,000 mg PO BID 08/01/17 Atorvastatin Ca [Lipitor] 40 mg PO HS #30 tablet 08/02/17 Lisinopril [Prinivil] 20 mg PO DAILY 03/04/19 Insulin Glargine,Hum.rec.anlog [Lantus Solostar PEN (NF)] 5 units SQ HS #1 pen 03/12/19 Miscellaneous Medical Supply [Glucometer Device] 1 each .ROUTE ASDIR #1 kit Miscellaneous Medical Supply [Glucometer Test Strips #100] 1 each .ROUTE ASDIR # 1 box 03/12/19 Potassium Chloride 20 meq PO DAILY #10 tablet.er 03/12/19 Ceftriaxone 2 gm-D5w Bag 2 gm IV DAILY 03/15/19 Insulin Glargine,Hum.rec.anlog [Basaglar Kwikpen U-100] 5 unit SQ HS #1 insuln.pen 03/16/19 Family Disease History - Family Disease History Family Disease History: Diabetes: Mother, Other: Father (Throat Ca ) Review of Systems - Review of Systems Constitutional: reports: Chills, Diaphoresis, Fever Eyes: denies: Blurred Vision, Eye Pain HENT: denies: Difficult Swallowing Cardiovascular: denies: Chest Pain, Edema Respiratory: denies: Cough Gastrointestinal: denies: Abdominal Pain Genitourinary: denies: Burning, Hematuria Musculoskeletal: reports: Extremity Pain (R extremity burning and pain with increased pus drainage). denies: Back Pain Integumentary: reports: Erythema Neurological: denies: Change in LOC, Change in Speech, Confusion, Dizziness, Pre -Existing Deficit, Seizure Physical Examination Vital Signs: Vital Signs Temperature 99.7 F H 03/15/19 17:17 Pulse Rate 99 H 03/15/19 17:17 Respiratory Rate 18 03/15/19 17:17 Blood Pressure 134/68 03/15/19 17:17 O2 Sat by Pulse Oximetry (%) 99 03/15/19 18:39 Constitutional: Yes: No Distress, Calm. No: Pallor Eyes: Yes: Conjunctiva Clear, EOM Intact HENT: Yes: Atraumatic Neck: Yes: Supple Cardiovascular: Yes: Regular Rate and Rhythm, S1, S2 Respiratory: Yes: CTA Bilaterally Gastrointestinal: Yes: Normal Bowel Sounds, Soft. No: Tenderness Edema: Yes Edema: RLE: 1+ (Swelling over dorsum and plantar aspect of R foot) Integumentary: Yes: Erythema (Soaked draining over dorsum R foot, with yellowish discharge in surgical dressing Whitish base at plantar aspect of 2nd and 3rd toes) Wound/Incision: Yes: Draining Neurological: Yes: Alert, Oriented ...Motor Strength: WNL Psychiatric: Yes: Alert, Oriented Labs: CBC, BMP 03/15/19 18:10 03/15/19 21:22 Assessment/Plan Ambulatory Orders Aspirin [ASA -] 81 mg PO DAILY 08/01/17 metFORMIN HCL [Metformin ER Osmotic] 1,000 mg PO BID 08/01/17 Atorvastatin Ca [Lipitor] 40 mg PO HS #30 tablet 08/02/17 Lisinopril [Prinivil] 20 mg PO DAILY 03/04/19 Insulin Glargine,Hum.rec.anlog [Lantus Solostar PEN (NF)] 5 units SQ HS #1 pen 03/12/19 Miscellaneous Medical Supply [Glucometer Device] 1 each .ROUTE ASDIR #1 kit Miscellaneous Medical Supply [Glucometer Test Strips #100] 1 each .ROUTE ASDIR # 1 box 03/12/19 Potassium Chloride 20 meq PO DAILY #10 tablet.er 03/12/19 Ceftriaxone 2 gm-D5w Bag 2 gm IV DAILY 03/15/19 Current Medications Acetaminophen (Ofirmev Injection -) 1,000 mg IVPB Q6H PRN PRN Reason: PAIN OR FEVER Ceftriaxone Sodium 2 gm/ (Dextrose) 100 mls @ 200 mls/hr IVPB DAILY DMITRY; Protocol Insulin Aspart (Novolog Vial Sliding Scale -) 1 vial SQ Q4H DMITRY; Protocol Pt is a 63F with PMH IDDM, HTN, HLD, MS, angina, CVA/TIA (with no residual deficits), discharged on 03/13 with PICC line and ceftriaxone 2g daily for treatment of OM of R 2nd and 3rd tarsals presenting from home home for worsening and malodorous drainage, subjective fevers x 2 days. #DM with R diabetic ulcer with OM: Pt's bone culture had been sensitive to cefriaxone Per daughter, did not miss any dose of antibiotic via PICC line Received vanc/zosyn in ED Will continue 2g ceftriaxone daily Pain mx with tylenol iv for pain Dr Singh saw in the past- consult Dr Sainz- ID Cont ceftriaxone Pt unable to get wound dressing changes- local wound dressing per podiatry NPO- pt may benefit from repeat Iand D Insulin sliding scale Hold oral DM meds Hypokalemia Pt received 20mg PO of Kcl Cont iv 10meq x3 #HTN Lisinopril #HLD Cont lipitor #MS Cont ASA #angina/CVA/TIA No chest pain, no residual deficits Cont statins, ACEIs Medsurg NPO Visit type - Emergency Visit Emergency Visit: Yes ED Registration Date: 03/15/19 Care time: The patient presented to the Emergency Department on the above date and was hospitalized for further evaluation of their emergent condition. - New Patient This patient is new to me today: Yes Date on this admission: 03/14/19 - Critical Care Critical Care patient: No
--- NOTE | 2019-03-15 22:31 | PN ---
Teaching Attending Note Name of Resident: Radha Giles ATTENDING PHYSICIAN STATEMENT I saw and evaluated the patient. I reviewed the resident's note and discussed the case with the resident. I agree with the resident's findings and plan as documented. SUBJECTIVE: Seen and examined; please refer to resident note for further historical information. Briefly, this is a 63 y/o female presenting to the medicine service for sepsis 2/2 R-foot DM wound. She is stable and appropriate for the floor and is noted to be hypokalemic and hyperglycemic in the ER. 10 sys ROS done and negative aside from HPI PMH, PSH, FH, SH reviewed Home Medications Medication Instructions Recorded Aspirin [ASA -] 81 mg PO DAILY 08/01/17 metFORMIN HCL [Metformin ER 1,000 mg PO BID 08/01/17 Osmotic] Atorvastatin Ca [Lipitor] 40 mg PO HS #30 tablet 08/02/17 Lisinopril [Prinivil] 20 mg PO DAILY 03/04/19 Insulin Glargine,Hum.rec.anlog 5 units SQ HS #1 pen 03/12/19 [Lantus Solostar PEN (NF)] Miscellaneous Medical Supply 1 each .ROUTE ASDIR #1 kit 03/12/19 [Glucometer Device] Miscellaneous Medical Supply 1 each .ROUTE ASDIR #1 box 03/12/19 [Glucometer Test Strips #100] Potassium Chloride 20 meq PO DAILY #10 tablet.er 03/12/19 Ceftriaxone 2 gm-D5w Bag 2 gm IV DAILY 03/15/19 OBJECTIVE: VS, labs, imaging reviewed NAD, AAO, resting in bed NC AT EOMI PERRLA RRR s1/2 no mgr NT ND +BS CN2-12 wnl, no fnd Normal mood, appropriate behavior EKG reviewed CXR reviewed Foot imaging reviewed; ASSESSMENT AND PLAN: Patient is a 63 y/o female presenting with sepsis 2/2 diabetic foot wound 1) Sepsis 2/2 DM Foot Infection -Mild tachy with white count and source; now is hemodynamically stable with temp 99 -Follow WBC, check ESR/CRP. Followup arterial/venous dopplers. 2) Uncontrolled DM with hyperglycemia 3) Hx HLD -Continue Statin 4) Hx HTN -Resume Lisinopril in AM provides VSS Full Code
[2019-03-15] MEDS ORDERED: VANCOMYCIN 1 GRAM (PRE-DOCKED) 1,000 MG/250 ML BAG IVPB ONE (22:56)
[2019-03-15] MEDS ORDERED: ACETAMINOPHEN 1000 MG/100 ML VIAL (NON FORMULARY) IVPB PRN (23:50)
[2019-03-16] MEDS: KCL 10 MEQ IVPB 10 MEQ/100 ML INFUS.BAG IVPB SCH ×3 (02:30→04:30)
[2019-03-16 02:42] VITALS: BMI 22.4
[2019-03-16] MEDS: INSULIN SLIDING SCALE (NOVOLOG) 1 VIAL SQ SCH ×6 (06:43→23:02)
[2019-03-16] MEDS ORDERED: INSULIN (NOVOLOG) ASPART 100 UNITS/ML 10ML VIAL ONE (06:55)
[2019-03-16 07:04] LABS: BASO % 0.9 % (0-2.0); HEMATOCRIT 26.8 % (32.4-45.2); LYMPH % 19.1 % (8-40); MCH 30.7 pg (25.7-33.7); MCHC 33.5 g/dl (32.0-36.0); MEAN CELL VOLUME 91.6 fl (80-96); MEAN PLT VOLUME 8.8 fl (7.5-11.1); MONO % 6.4 % (3.8-10.2); NEUT % 71.6 % (42.8-82.8); RBC 2.92 M/mm3 (3.60-5.2); RDW 13.3 % (11.6-15.6); WHITE BLOOD COUNT 11.8 K/mm3 (4.0-10.0)
[2019-03-16 07:28] LABS: ALBUMIN 2.9 g/dl (3.4-5.0); BILIRUBIN,TOTAL 0.4 mg/dL (0.2-1); BLOOD UREA NITROGEN 8.8 mg/dL (7-18); CALCIUM 9.2 mg/dL (8.5-10.1); CREATININE 0.8 mg/dL (0.55-1.3); MAGNESIUM 1.8 mg/dL (1.8-2.4); PHOSPHOROUS 2.6 mg/dL (2.5-4.9); POTASSIUM 4.2 mmol/L (3.5-5.1); TOT PROT 7.9 g/dl (6.4-8.2)
[2019-03-16] MEDS ORDERED: INSULIN (LEVEMIR) 100 UNITS/ML UNITS SQ ONE (07:43)
[2019-03-16 07:52] LABS: INR 1.06 (0.83-1.09); PROTHROMBIN TIME (PATIENT) 12.5 SEC (9.7-13.0)
[2019-03-16 07:55] LABS: ACTIVATED PTT 34.5 SECONDS (25.2-36.5)
[2019-03-16 07:57] LABS: PLATELET COUNT 366 K/MM3 (134-434)
--- NOTE | 2019-03-16 08:55 | CON.ID ---
Consult Consult Specialty:: infectious diseases Referred by:: Dr Matute Reason for Consultation:: cellulitis of the rt foot,dirrhoea,pain - History of Present Illness Chief Complaint: pain of the rt foot with swelling and dirrhoea History of Present Illness: 63F with PMH IDDM, HTN, HLD, SC, angina, CVA/TIA , discharged on 03/13 with PICC line and ceftriaxone 2g daily for treatment of OM of R 2nd and 3rd tarsals presenting from home home for worsening and malodorous drainage, subjective fevers x 2 days. Pt was discharged on Tuesday with infusion nurse and visiting nurse set up for wound dressing. According to the patient her wound started to produce malodorus and liquid soaking through the dressing. 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 (chronic intermittent lightheadedness (x 1 year)) Cardio/Vascular: Yes: CAD, HTN, Hyperlipdemia, Other (angina) Pulmonary: No: Asthma, Bronchitis, Cancer, COPD, O2 Dependent, Pneumonia, Previously Intubated, Pulmonary Embolus, Pulmonary Fibrosis, Sleep Apnea, Other Psych: Yes: Depression ENT: Yes: Other (blind left eye) Endocrine: Yes: Diabetes Mellitus - Past Surgical History Past Surgical History: Yes: None - Alcohol/Substance Use Hx Alcohol Use: No - Smoking History Smoking history: Never smoked Have you smoked in the past 12 months: No Aproximately how many cigarettes per day: 0 Home Medications - Allergies Allergies/Adverse Reactions: Allergies Allergy/AdvReac Type Severity Reaction Status Date / Time No Known Drug Allergies Allergy Verified 03/15/19 17:15 lactose AdvReac Verified 03/15/19 17:15 - Home Medications Home Medications: Ambulatory Orders Aspirin [ASA -] 81 mg PO DAILY 08/01/17 metFORMIN HCL [Metformin ER Osmotic] 1,000 mg PO BID 08/01/17 Atorvastatin Ca [Lipitor] 40 mg PO HS #30 tablet 08/02/17 Lisinopril [Prinivil] 20 mg PO DAILY 03/04/19 Insulin Glargine,Hum.rec.anlog [Lantus Solostar PEN (NF)] 5 units SQ HS #1 pen 03/12/19 Miscellaneous Medical Supply [Glucometer Device] 1 each .ROUTE ASDIR #1 kit Miscellaneous Medical Supply [Glucometer Test Strips #100] 1 each .ROUTE ASDIR # 1 box 03/12/19 Potassium Chloride 20 meq PO DAILY #10 tablet.er 03/12/19 Ceftriaxone 2 gm-D5w Bag 2 gm IV DAILY 03/15/19 Family Disease History - Family Disease History Family Disease History: Diabetes: Mother, Other: Father (Throat Ca ) Review of Systems - Review of Systems Constitutional: reports: Chills, Fever Eyes: reports: No Symptoms HENT: reports: No Symptoms Neck: reports: No Symptoms Cardiovascular: reports: No Symptoms Respiratory: reports: No Symptoms Genitourinary: reports: No Symptoms Musculoskeletal: reports: Other Integumentary: reports: Change in Color, Erythema, Wound, Other (swelling of the foot) Neurological: reports: No Symptoms Endocrine: reports: Increased Thirst Hematology/Lymphatic: reports: No Symptoms Psychiatric: reports: No Symptoms Physical Exam Vital Signs: Vital Signs Temperature 98 F 03/16/19 05:52 Pulse Rate 91 H 03/16/19 05:52 Respiratory Rate 20 03/16/19 05:52 Blood Pressure 147/77 03/16/19 05:52 O2 Sat by Pulse Oximetry (%) 98 03/16/19 02:48 Constitutional: Yes: Well Nourished, Calm, Mild Distress Eyes: Yes: Conjunctiva Clear Neck: Yes: Supple, Trachea Midline Cardiovascular: Yes: Regular Rate and Rhythm Respiratory: Yes: Regular, CTA Bilaterally Gastrointestinal: Yes: Normal Bowel Sounds, Soft Musculoskeletal: Yes: WNL Extremities: Yes: Erythema (of the rt foot), Other Integumentary: Yes: Erythema, Other (swelling of the rt foot) Wound/Incision: Yes: Dressing Removed Neurological: Yes: Alert, Oriented Psychiatric: Yes: Alert, Oriented Labs: CBC, BMP 03/16/19 06:35 03/16/19 06:35 Imaging - Results Chest X-ray: Report Reviewed, Image Reviewed X-ray: Report Reviewed, Image Reviewed Assessment/Plan 63 y/o F with PMH IDDM, HTN, HLD, SC, angina, CVA/TIA (with no residual deficits ), who presents to the ED c/o R foot pain over the past 2-3 days. R foot cellulitis rfoot abscess osteomyelitis of the rt foot uti dm after looking at the foot i am going to change abx to zosyn also podiatry to daly look at the patient\ might need a washout again rest as per the team
[2019-03-16] MEDS ORDERED: PIPERACILLIN/TAZOBACTAM 3.375 GM VIAL IVPB ONE ×2 (09:53→18:00)
[2019-03-16] MEDS ORDERED: DEXTROSE 5%-WATER - 50 ML IVPB ONE ×2 (09:53→18:00)
[2019-03-16] MEDS: PIPERACILLIN/TAZOB 3.375 GM 3.375 GM in DEXTROSE 5%-WATER - 50 ML IVPB SCH ×2 (09:57→18:02)
[2019-03-16] MEDS: LISINOPRIL 20 MG TABLET (FP) PO SCH (09:58)
[2019-03-16] MEDS: ASPIRIN 81 MG CHEWABLE TABLETS PO SCH (09:59)
[2019-03-16] MEDS ORDERED: CEFTRIAXONE 2 GM in DEXTROSE 5%-WATER 100 ML IVPB SCH (10:00)
[2019-03-16] MEDS ORDERED: POTASSIUM CHLORIDE TABS 20 MEQ TABLET.ER (FP) PO SCH (10:00)
--- NOTE | 2019-03-16 10:21 | PN ---
Physical Exam: SUBJECTIVE: Patient seen and examined at bedside. Pt complaining of worsening foot pain and redness. Also admits to some chills, but denies fever, cp, sob, abd pain, urinary/bowel symptoms. States the antibiotics she has been getting at home is getting "rejected by my body." Per nurse, no acute events overnight. OBJECTIVE: Vital Signs Temperature 98.4 F 03/16/19 09:18 Pulse Rate 87 03/16/19 09:18 Respiratory Rate 20 03/16/19 09:18 Blood Pressure 138/69 03/16/19 09:18 O2 Sat by Pulse Oximetry (%) 98 03/16/19 02:48 GENERAL: AAOx3. NAD. Resting comfortably in bed. HEENT: AT/NC. Moist mucus membranes. NECK: Trachea midline, full range of motion, supple. LUNGS: CTA B/L. No wheezes, rhonchi, rales noted. HEART: RRR. Normal S1, S2. No murmurs noted. ABDOMEN: Soft, NT/ND. No masses, rebound tenderness, guarding. EXTREMITIES: 2+ pulses, warm, well-perfused, no edema. +erythema, +warmth on dorsum of R foot distally. +non-draining wound ulcer on plantar aspect of 4th and 5th metatarsals, tender to palpation. NEUROLOGICAL: Cranial nerves II through XII grossly intact. Normal speech, gait not observed. PSYCH: Normal mood, normal affect. SKIN: Warm, dry, normal turgor, no rashes or lesions noted CBCD WBC 11.8 K/mm3 (4.0-10.0) H 03/16/19 06:35 RBC 2.92 M/mm3 (3.60-5.2) L 03/16/19 06:35 Hgb 9.0 GM/dL (10.7-15.3) L 03/16/19 06:35 Hct 26.8 % (32.4-45.2) L 03/16/19 06:35 MCV 91.6 fl (80-96) 03/16/19 06:35 MCHC 33.5 g/dl (32.0-36.0) 03/16/19 06:35 RDW 13.3 % (11.6-15.6) 03/16/19 06:35 Plt Count 366 K/MM3 (134-434) 03/16/19 06:35 MPV 8.8 fl (7.5-11.1) 03/16/19 06:35 CMP Sodium 138 mmol/L (136-145) 03/16/19 06:35 Potassium 4.2 mmol/L (3.5-5.1) 03/16/19 06:35 Chloride 102 mmol/L (98-107) 03/16/19 06:35 Carbon Dioxide 34 mmol/L (21-32) H 03/16/19 06:35 Anion Gap 3 MMOL/L (8-16) L 03/16/19 06:35 BUN 8.8 mg/dL (7-18) 03/16/19 06:35 Creatinine 0.8 mg/dL (0.55-1.3) 03/16/19 06:35 Calcium 9.2 mg/dL (8.5-10.1) 03/16/19 06:35 Total Bilirubin 0.4 mg/dL (0.2-1) 03/16/19 06:35 AST 8 U/L (15-37) L 03/16/19 06:35 ALT 14 U/L (13-61) 03/16/19 06:35 Alkaline Phosphatase 101 U/L (45-117) 03/16/19 06:35 Total Protein 7.9 g/dl (6.4-8.2) 03/16/19 06:35 Albumin 2.9 g/dl (3.4-5.0) L 03/16/19 06:35 Active Medications Acetaminophen (Ofirmev Injection -) 1,000 mg IVPB Q6H PRN PRN Reason: PAIN OR FEVER Aspirin (Asa -) 81 mg PO DAILY [facility] Last Admin: 03/16/19 09:59 Dose: 81 mg Atorvastatin Calcium (Lipitor -) 40 mg PO HS [facility] Piperacillin Sod/Tazobactam (Sod 3.375 gm/ Dextrose) 50 mls @ 100 mls/hr IVPB Q8H-IV [facility]; Protocol Last Admin: 03/16/19 09:57 Dose: 100 mls/hr Insulin Aspart (Novolog Vial Sliding Scale -) 1 vial SQ Q4H [facility]; Protocol Last Admin: 03/16/19 06:43 Dose: 6 units Lisinopril (Prinivil) 20 mg PO DAILY [facility] Last Admin: 03/16/19 09:58 Dose: 20 mg Potassium Chloride (K-Dur -) 20 meq PO DAILY [facility] Last Admin: 03/16/19 09:58 Dose: 20 meq IMAGING: * R foot xray: Loss of bone density, calcaneal spurring, vascular calcifications , angulated toes w/ arthritic changes and bunion formation by the first MTP joint. No sign of soft tissue air or foreign body. ASSESSMENT/PLAN: 63F with PMH IDDM, HTN, HLD, OK, angina, CVA/TIA (with no residual deficits), discharged on 03/13 with PICC line and Ceftriaxone 2g daily for treatment of OM of R 2nd and 3rd tarsals presenting from home home for worsening and malodorous drainage, subjective fevers x 2 days. #Sepsis 2/2 R foot OM, failed outpatient therapy on IV Ceftriaxone -Pt was previously on IV Ceftriaxone at home. Per ID, will switch to IV Zosyn -Podiatry consult (Dr. Singh); will keep pt NPO for possible procedure if needed -ID consulted (Dr. Sainz) -Daily wound care -Pt states there was no visiting nurse to help with wound care of foot. Will f/ u with social work regarding VNS as pt will need help to continue wound care at home. #IDDM; Uncontrolled. -Will restart Levemir 5U -Hold home oral DM meds -BGM/ISS ACHS #Hypokalemia; 4.2 today. Resolved. -Pt received 20mg PO of Kcl; will repeat PRN #HTN; Cont home med: Lisinopril 20 QD #HLD; Cont home med: Lipitor 40 HS #CAD; Cont home med: ASA 81 #Hx of Angina/CVA/TIA; Stable. Cont home meds: Lipitor 40 HS, ASA 81 #PPx DVT: Early ambulation FEN -No IVfs -recheck lytes (K+) in AM -NPO for possible procedure Dispo -Cont to monitor on med-surg Visit type - Emergency Visit Emergency Visit: Yes ED Registration Date: 03/15/19 Care time: The patient presented to the Emergency Department on the above date and was hospitalized for further evaluation of their emergent condition. - New Patient This patient is new to me today: Yes Date on this admission: 03/16/19 - Critical Care Critical Care patient: No
--- NOTE | 2019-03-16 10:55 | PN ---
Teaching Attending Note Name of Resident: Kateryna Chowdary ATTENDING PHYSICIAN STATEMENT I saw and evaluated the patient. I reviewed the resident's note and discussed the case with the resident. I agree with the resident's findings and plan as documented. SUBJECTIVE: c/o chills. states drainage did not start til yesterday. states she did not miss any abx doses. area is tender on palpation. states she was unable to obtain her insulin due to insurance issues but did not call the hospital or her PMD to notify anyone. states she was checking her sugars at home. states they were "ok" but can not recall any numbers. denies Cp, SOB, fever, n/V/c/d, dizzynesss OBJECTIVE: Last Vital Signs Temp Pulse Resp BP Pulse Ox 98.4 F 87 20 138/69 98 03/16/19 09:18 03/16/19 09:18 03/16/19 09:18 03/16/19 09:18 03/16/19 02:48 General NAD CV S1 s2 RRR no murmur/rub/gallop lungs CTA B/L no wheezing/rales/rhonchi extremities R foot forefoot is warm, tender and erythematous. inter-webbing emaciated tissue with white slough noted between 4th and 5th digit. ulcer on medial aspect of hallux. ASSESSMENT AND PLAN: 63yo F wtih PMH DM, CVA, CAD, and previous OM of L foot and recent hospitalization where she was medically managed for R foot OM with PICC line placed for care home IV abx with Ceftriaxone returns to the hospital with draining ulcer and chills. found to be septic from foot ulcer and OM. 1. Sepsis due to R foot OM of 4th digit- had multiple washouts last hospitalization. will liekly require another debridement. received vanco and zosyn in the ER. will cont at this time as pt has failed ceftriaxone therapy. will obtain abother culture. ID and podiatry consulted. imaging negative for acute pathology. 2. DM- uncontrolled. was not taking insulin at home as instructed. will start levemir 5 units now. titrate to optimize contro. will reach out to pharmacy to determine if there was an insurance pre-auth that is required. 3. hypokalemia- improved. will d/c standing potassium order. will give when needed 4. Normocytic anemia- slightly lower than last hospitalization. no signs of active bleeding. could be due to acute illness. check iron studies. Hgb stable. no indication for transfusion. 5. CVA- on asa/statin 6. CAD- on asa/statin/acei 7. DVT ppx- heparin
--- NOTE | 2019-03-16 11:35 | EKG ---
Test Reason : Blood Pressure : / mmHG Vent. Rate : 092 BPM Atrial Rate : 092 BPM P-R Int : 172 ms QRS Dur : 074 ms QT Int : 330 ms P-R-T Axes : 057 032 069 degrees QTc Int : 408 ms POOR DATA QUALITY, INTERPRETATION MAY BE ADVERSELY AFFECTED NORMAL SINUS RHYTHM CANNOT RULE OUT ANTERIOR INFARCT , AGE UNDETERMINED NONSPECIFIC ST ABNORMALITY ABNORMAL ECG Confirmed by JAMIE WONG MD ([id number]) on 03/16/2019 11:34:36 AM Referred By: Confirmed By:JAMIE WONG MD
[2019-03-16] MEDS: HEPARIN NA (PORCINE) 5,000 UNITS/ML 1ML VIAL SQ SCH ×2 (14:15→23:02)
--- NOTE | 2019-03-16 17:10 | CONSULT ---
Consult - text type - Consultation Consultation Note: 63 y/o female well known to our practice who was admitted last week with right foot osteo. Was confirmed on MRI to have osteo in the 3rd and 4th digit as well as abscess formation. Had multiple incision and drainages performed at bedside and in the OR. Was d/c home on Iv abx. States home nursing never came to change dressing but she was utilizing the Iv abx at home. States started to have sever diarrhea as well as fevers and the dressing became soaked with drainage at home. Denies any other complaints. O: Right foot with incision site in interspace now partially healed, mild/moderate erythema noted dorsally and plantarly over the forefoot stemming from mainly the 3/4th MPJ area, no active purulence noted, no streaking up the foot, foot is warm to touch and pedal pulses lightly palpable, no malodor noted a: Osteo ?3 and 4th digit Cellulitis P: Evaluated and reviewed At the bedside utilizinge suture removal kit sutures were removed and I opened back up the surgical incision site; upon forceful compression a mild amount of serous fluid was expressed but no purulence. Utilizing sterile scissors the interspace was opened back up and left open and packed with wet to try 4x4. Dakins solution ordered MRI re ordered to eval for any further abscess collection If abscess seen can discuss further OR drainage but at this time will hold off. Cont iv Abx per ID Since admission WBC is down and today afebrile Will follow
[2019-03-16] MEDS: ATORVASTATIN CA 40 MG TABLET (FP) PO SCH (23:02)
[2019-03-17] MEDS ORDERED: DEXTROSE 5%-WATER - 50 ML IVPB ONE ×3 (02:12→17:22)
[2019-03-17] MEDS ORDERED: PIPERACILLIN/TAZOBACTAM 3.375 GM VIAL IVPB ONE ×3 (02:12→17:22)
[2019-03-17] MEDS: PIPERACILLIN/TAZOB 3.375 GM 3.375 GM in DEXTROSE 5%-WATER - 50 ML IVPB SCH ×3 (02:18→17:24)
[2019-03-17] MEDS: HEPARIN NA (PORCINE) 5,000 UNITS/ML 1ML VIAL SQ SCH ×3 (06:25→22:22)
[2019-03-17] MEDS: INSULIN (LEVEMIR) 100 UNITS/ML UNITS SQ SCH (06:31)
[2019-03-17] MEDS: INSULIN SLIDING SCALE (NOVOLOG) 1 VIAL SQ SCH ×4 (06:43→22:24)
[2019-03-17 07:37] LABS: HEMATOCRIT 26.5 % (32.4-45.2); HEMOGLOBIN 8.8 GM/dL (10.7-15.3); MCH 30.3 pg (25.7-33.7); MCHC 33.4 g/dl (32.0-36.0); MEAN CELL VOLUME 90.7 fl (80-96); MEAN PLT VOLUME 8.9 fl (7.5-11.1); PLATELET COUNT 380 K/MM3 (134-434); RBC 2.92 M/mm3 (3.60-5.2); RDW 13.3 % (11.6-15.6); WHITE BLOOD COUNT 12.5 K/mm3 (4.0-10.0)
[2019-03-17 07:51] LABS: BLOOD UREA NITROGEN 5.5 mg/dL (7-18); CALCIUM 9.2 mg/dL (8.5-10.1); CREATININE 0.8 mg/dL (0.55-1.3); POTASSIUM 3.7 mmol/L (3.5-5.1)
[2019-03-17] MEDS: LISINOPRIL 20 MG TABLET (FP) PO SCH (09:11)
[2019-03-17] MEDS: ASPIRIN 81 MG CHEWABLE TABLETS PO SCH (09:11)
--- NOTE | 2019-03-17 10:47 | PN ---
Progress Note (short form) - Note Progress Note: state pain overall has improved since I&D bedside yesterday. denies CP, SOB, fever, chills, N/V/C/D Current Medications Generic Name Dose Route Start Last Admin Trade Name Somq PRN Reason Stop Dose Admin Acetaminophen 1,000 mg 03/15/19 23:50 Ofirmev Injection - IVPB Q6H PRN PAIN OR FEVER Aspirin 81 mg 03/16/19 10:00 03/17/19 09:11 Asa - PO 81 mg DAILY [facility] Administration Atorvastatin Calcium 40 mg 03/16/19 22:00 03/16/19 23:02 Lipitor - PO 40 mg HS [facility] Administration Heparin Sodium (Porcine) 5,000 unit 03/16/19 14:00 03/17/19 06:25 Heparin - SQ 5,000 unit TID [facility] Administration Piperacillin Sod/Tazobactam 50 mls @ 100 mls/hr 03/16/19 10:00 03/17/19 09:11 Sod 3.375 gm/ Dextrose IVPB 100 mls/hr Q8H-IV [facility] Administration Protocol Insulin Aspart 1 vial 03/16/19 10:30 03/17/19 06:43 Novolog Vial Sliding Scale - SQ 2 units ACHS [facility] Administration Protocol Insulin Detemir 5 units 03/17/19 07:00 03/17/19 06:31 Levemir Vial SQ 5 units AM [facility] Administration Lisinopril 20 mg 03/16/19 10:00 03/17/19 09:11 Prinivil PO 20 mg DAILY [facility] Administration Sodium Hypochlorite 1 applic 03/17/19 10:00 Dakin's Solution 0.5% (Full Strength) - TP DAILY [facility] Last Vital Signs Temp Pulse Resp BP Pulse Ox 98.1 F 86 20 158/88 98 03/17/19 09:00 03/17/19 09:00 03/17/19 09:00 03/17/19 09:00 03/16/19 02:48 General NAD CV S1 s2 RRR no murmur/rub/gallop lungs CTA B/L no wheezing/rales/rhonchi extremities R foot wrapped, bandage c/d/i CBCD WBC 12.5 K/mm3 (4.0-10.0) H 03/17/19 06:50 RBC 2.92 M/mm3 (3.60-5.2) L 03/17/19 06:50 Hgb 8.8 GM/dL (10.7-15.3) L 03/17/19 06:50 Hct 26.5 % (32.4-45.2) L 03/17/19 06:50 MCV 90.7 fl (80-96) 03/17/19 06:50 MCHC 33.4 g/dl (32.0-36.0) 03/17/19 06:50 RDW 13.3 % (11.6-15.6) 03/17/19 06:50 Plt Count 380 K/MM3 (134-434) 03/17/19 06:50 MPV 8.9 fl (7.5-11.1) 03/17/19 06:50 CMP Sodium 138 mmol/L (136-145) 03/17/19 06:50 Potassium 3.7 mmol/L (3.5-5.1) 03/17/19 06:50 Chloride 101 mmol/L (98-107) 03/17/19 06:50 Carbon Dioxide 32 mmol/L (21-32) 03/17/19 06:50 Anion Gap 5 MMOL/L (8-16) L 03/17/19 06:50 BUN 5.5 mg/dL (7-18) L 03/17/19 06:50 Creatinine 0.8 mg/dL (0.55-1.3) 03/17/19 06:50 Calcium 9.2 mg/dL (8.5-10.1) 03/17/19 06:50 Total Bilirubin 0.4 mg/dL (0.2-1) 03/16/19 06:35 AST 8 U/L (15-37) L 03/16/19 06:35 ALT 14 U/L (13-61) 03/16/19 06:35 Alkaline Phosphatase 101 U/L (45-117) 03/16/19 06:35 Total Protein 7.9 g/dl (6.4-8.2) 03/16/19 06:35 Albumin 2.9 g/dl (3.4-5.0) L 03/16/19 06:35 Microbiology 03/16/19 17:00 Gram Stain - Final Leg - Right Lower 03/16/19 20:10 Clostridioides difficile Antigen - Final Stool Clostridioides difficile Toxin Assay - Final 03/15/19 21:45 Urine Culture - Final Urine - Urine Clean Catch Yeast Like Organism 03/15/19 21:22 Blood Culture - Preliminary Blood - Peripheral Venous NO GROWTH OBTAINED AFTER 24 HOURS, INCUBATION TO CONTINUE FOR 4 DAYS. 03/15/19 21:22 Blood Culture - Preliminary Blood - Peripheral Venous NO GROWTH OBTAINED AFTER 24 HOURS, INCUBATION TO CONTINUE FOR 4 DAYS. ASSESSMENT AND PLAN: 63yo F wtih PMH DM, CVA, CAD, and previous OM of L foot and recent hospitalization where she was medically managed for R foot OM with PICC line placed for senior care IV abx with Ceftriaxone returns to the hospital with draining ulcer and chills. found to be septic from foot ulcer and OM. 1. Sepsis due to R foot OM of 4th digit- s/p bedside I&D 03/16. MRI ordered to r/ o deep abscess. on zosyn day 3, ID and podiatry on board. f/u Cx 2. DM- improved. on levemir 5 units HS. cont iss and bgm. will reach out to pharmacy to determine if there was an insurance pre-auth that is required. 3. hypokalemia- improved. monitor 4. Normocytic anemia-iron studies pending. hgb stable. no indication for transfusion. 5. CVA- on asa/statin 6. CAD- on asa/statin/acei 7. DVT ppx- heparin Visit type - Emergency Visit Emergency Visit: Yes ED Registration Date: 03/15/19 Care time: The patient presented to the Emergency Department on the above date and was hospitalized for further evaluation of their emergent condition. - New Patient This patient is new to me today: No - Critical Care Critical Care patient: No - Discharge Referral Referred to [facility] Med P.C.: No
[2019-03-17] MEDS ORDERED: INSULIN (NOVOLOG) ASPART 100 UNITS/ML 10ML VIAL ONE (11:36)
--- NOTE | 2019-03-17 13:05 | PN ---
Progress Note, Physician - Current Medication List Current Medications: Active Medications Acetaminophen (Ofirmev Injection -) 1,000 mg IVPB Q6H PRN PRN Reason: PAIN OR FEVER Aspirin (Asa -) 81 mg PO DAILY [facility] Last Admin: 03/17/19 09:11 Dose: 81 mg Atorvastatin Calcium (Lipitor -) 40 mg PO HS [facility] Last Admin: 03/16/19 23:02 Dose: 40 mg Heparin Sodium (Porcine) (Heparin -) 5,000 unit SQ TID [facility] Last Admin: 03/17/19 06:25 Dose: 5,000 unit Piperacillin Sod/Tazobactam (Sod 3.375 gm/ Dextrose) 50 mls @ 100 mls/hr IVPB Q8H-IV [facility]; Protocol Last Admin: 03/17/19 09:11 Dose: 100 mls/hr Insulin Aspart (Novolog Vial Sliding Scale -) 1 vial SQ ACHS [facility]; Protocol Last Admin: 03/17/19 11:41 Dose: 2 units Insulin Detemir (Levemir Vial) 5 units SQ AM [facility] Last Admin: 03/17/19 06:31 Dose: 5 units Lisinopril (Prinivil) 20 mg PO DAILY [facility] Last Admin: 03/17/19 09:11 Dose: 20 mg Sodium Hypochlorite (Dakin's Solution 0.5% (Full Strength) -) 1 applic TP DAILY [facility] - Objective Vital Signs: Vital Signs Temperature 98.1 F 03/17/19 09:00 Pulse Rate 86 03/17/19 09:00 Respiratory Rate 20 03/17/19 09:00 Blood Pressure 158/88 03/17/19 09:00 O2 Sat by Pulse Oximetry (%) 98 03/16/19 02:48 Labs: CBC, BMP 03/17/19 06:50 03/17/19 06:50 INR, PTT INR 1.06 (0.83-1.09) 03/16/19 06:35
--- NOTE | 2019-03-17 13:29 | PN ---
Progress Note (short form) - Note Progress Note: 63 y/o female well known to our practice who was admitted last week with right foot osteo. S/p bedside I an dD from yesterday. Seen with Dr. Sainz; foot does show some mild improvement. States pain is better today than yesterday. Denies any other cmplaints. O: Right foot with incision site in interspace now partially healed, mild/moderate erythema decreased from yesterday noted dorsally and plantarly over the forefoot stemming from mainly the 3/4th MPJ area, no active purulence noted, no streaking up the foot, foot is warm to touch and pedal pulses lightly palpable, no malodor noted a: Osteo ?3 and 4th digit Cellulitis P: Evaluated and reviewed Does look improved WBC noted; f/u micro f/u MRI Dressing changed and woudn flushed with dakins and wet to dry with dakins DSD Will f/u; if abscess noted can plan for deep I and D in the OR next week.
[2019-03-17] MEDS: SODIUM HYPOCHLORITE 0.5% 473 ML- BULK BOTTLE TP SCH (13:30)
[2019-03-17] MEDS: ATORVASTATIN CA 40 MG TABLET (FP) PO SCH (22:25)
[2019-03-18] MEDS ORDERED: PIPERACILLIN/TAZOBACTAM 3.375 GM VIAL IVPB ONE ×3 (01:31→16:37)
[2019-03-18] MEDS ORDERED: DEXTROSE 5%-WATER - 50 ML IVPB ONE ×3 (01:31→16:37)
[2019-03-18] MEDS: PIPERACILLIN/TAZOB 3.375 GM 3.375 GM in DEXTROSE 5%-WATER - 50 ML IVPB SCH ×3 (01:46→17:20)
[2019-03-18] MEDS: INSULIN SLIDING SCALE (NOVOLOG) 1 VIAL SQ SCH ×4 (06:55→21:57)
[2019-03-18] MEDS: INSULIN (LEVEMIR) 100 UNITS/ML UNITS SQ SCH (06:55)
[2019-03-18] MEDS: HEPARIN NA (PORCINE) 5,000 UNITS/ML 1ML VIAL SQ SCH ×3 (06:55→21:52)
[2019-03-18 07:08] LABS: SERUM IRON SATURATION 11 % (15-55); TOTAL IRON BINDING CAPACITY 227 ug/dL (250-450)
[2019-03-18] MEDS ORDERED: IRON SUCROSE INJECTION 200 MG in SODIUM CHLORIDE 90 ML IVPB ONE (08:00)
[2019-03-18 08:37] LABS: BASO % 0.8 % (0-2.0); EOS % 1.7 % (0-4.5); HEMATOCRIT 29.4 % (32.4-45.2); HEMOGLOBIN 9.8 GM/dL (10.7-15.3); LYMPH % 24.3 % (8-40); MCH 30.3 pg (25.7-33.7); MCHC 33.4 g/dl (32.0-36.0); MEAN CELL VOLUME 90.9 fl (80-96); MONO % 5.7 % (3.8-10.2); NEUT % 67.5 % (42.8-82.8); RBC 3.23 M/mm3 (3.60-5.2); RDW 13.4 % (11.6-15.6); WHITE BLOOD COUNT 11.5 K/mm3 (4.0-10.0)
[2019-03-18 09:32] LABS: PLATELET COUNT 397 K/MM3 (134-434)
--- NOTE | 2019-03-18 09:48 | PN ---
Physical Exam: SUBJECTIVE: Patient seen and examined at bedside. No events overnight. Feeling well today, ambulating around room. No other complaint. OBJECTIVE: Vital Signs Period Temp Pulse Resp BP Sys/[place] Pulse Ox Last 24 Hr 97.8 F-99.0 F 87-110 20-20 129-166/80-91 GENERAL: AAOx3. in NAD HEAD: Normal with no signs of trauma. EYES: PERRL, extraocular movements intact, sclera anicteric, conjunctiva clear. ENT: Ears normal, nares patent, oropharynx clear without exudates, moist mucous membranes. NECK: Trachea midline, supple. LUNGS: CTA b/l. no wheezes, rhonchi or crackles. HEART: Regular rate and rhythm, S1, S2 without murmur, rub or gallop. ABDOMEN: Soft, nontender, nondistended, normoactive bowel sounds, no guarding EXTREMITIES: 2+ pt pulses. +R foot wound plantar aspect of 4th and 5th metatarsals w/serous drainage. +w warmth to area NEUROLOGICAL: Cranial nerves II through XII grossly intact. PSYCH: Normal mood, normal affect. SKIN: Warm, dry, normal turgor Laboratory Results 03/18/19 03/18/19 06:36 07:59 WBC 11.5 H Hgb 9.8 L Hct 29.4 L POC Glucometer 148 ASSESSMENT/PLAN: 63 y/o F with PMH IDDM, HTN, CVA, CAD, prev OM L foot, recent hosp for R foot OM d/c on ceftriaxone via PICC, who was found to be septic 2/2 R foot OM of 4th digit. #Sepsis 2/2 R foot OM of 4th digit -afebrile. leukocytosis improving -s/p bedside I&D 03/16 -c/w zosyn (day 4), ID: Dr. Sainz -f/u wound cx. blood cx (-) -Dakin vickey application per podiatry -await result of MRI to r/o deep abscess. if (+) will need I&D in OR by podiatry #HTN- controlled -c/w lisinopril #IDDM -c/w levemir 5u sq AM, ISS, BGM ACHS -tight BG control to aid w wound healing. #iron def anemia -will receive venofer 200mg IVPB x 1 today -cont to follow #CVA -c/w asa, lipitor #CAD -c/w asa #F/E/N no IVF req at this time continue to follow lytes diabetic diet #PPX DVT: hep 5k sq tid #Dispo cont'd monitoring on med-surg. on IV abx await MRI report to determine if pt needs I&D in OR by podiatry Visit type - Emergency Visit Emergency Visit: No - New Patient This patient is new to me today: No - Critical Care Critical Care patient: No
[2019-03-18] MEDS ORDERED: PT OWN MED DRAWER 7, Y5N ONE (10:11)
[2019-03-18] MEDS: LISINOPRIL 20 MG TABLET (FP) PO SCH (10:16)
[2019-03-18] MEDS: ASPIRIN 81 MG CHEWABLE TABLETS PO SCH (10:16)
[2019-03-18] MEDS: SODIUM HYPOCHLORITE 0.5% 473 ML- BULK BOTTLE TP SCH (10:45)
--- NOTE | 2019-03-18 11:26 | PN ---
Teaching Attending Note Name of Resident: Sharda Teixeira ATTENDING PHYSICIAN STATEMENT I saw and evaluated the patient. I reviewed the resident's note and discussed the case with the resident. I agree with the resident's findings and plan as documented. SUBJECTIVE:states pain is improved. denies CP,SOB, fever, chills, N/V/C/D OBJECTIVE: Last Vital Signs Temp Pulse Resp BP Pulse Ox 99.0 F 92 H 20 129/87 98 03/18/19 05:55 03/18/19 05:55 03/18/19 05:55 03/18/19 05:55 03/16/19 02:48 General NAD Foot R foot wrapped, c/d/i ASSESSMENT AND PLAN: 63yo F wtih PMH DM, CVA, CAD, and previous OM of L foot and recent hospitalization where she was medically managed for R foot OM with PICC line placed for detention IV abx with Ceftriaxone returns to the hospital with draining ulcer and chills. found to be septic from foot ulcer and OM. 1. Sepsis due to R foot OM of 4th digit- s/p bedside I&D 03/16. MRI ordered to r/ o deep abscess. on zosyn day 4, ID and podiatry on board. f/u Cx 2. DM- improved. on levemir 5 units HS. cont iss and bgm. will reach out to pharmacy to determine if there was an insurance pre-auth that is required. 3. hypokalemia- improved. monitor 4. Normocytic anemia-+iron def anemia. will give venofer. hgb stable. no indication for transfusion. 5. CVA- on asa/statin 6. CAD- on asa/statin/acei 7. DVT ppx- heparin
[2019-03-18] MEDS: ATORVASTATIN CA 40 MG TABLET (FP) PO SCH (21:56)
[2019-03-19] MEDS ORDERED: DEXTROSE 5%-WATER - 50 ML IVPB ONE ×3 (01:01→17:56)
[2019-03-19] MEDS ORDERED: PIPERACILLIN/TAZOBACTAM 3.375 GM VIAL IVPB ONE ×3 (01:01→17:56)
[2019-03-19] MEDS: PIPERACILLIN/TAZOB 3.375 GM 3.375 GM in DEXTROSE 5%-WATER - 50 ML IVPB SCH ×3 (02:00→17:56)
[2019-03-19] MEDS: HEPARIN NA (PORCINE) 5,000 UNITS/ML 1ML VIAL SQ SCH ×3 (06:18→21:54)
[2019-03-19] MEDS: INSULIN SLIDING SCALE (NOVOLOG) 1 VIAL SQ SCH ×4 (06:18→21:51)
[2019-03-19] MEDS: INSULIN (LEVEMIR) 100 UNITS/ML UNITS SQ SCH (06:18)
[2019-03-19 07:14] LABS: BASO % 0.6 % (0-2.0); EOS % 1.4 % (0-4.5); HEMATOCRIT 27.9 % (32.4-45.2); HEMOGLOBIN 9.3 GM/dL (10.7-15.3); LYMPH % 23.2 % (8-40); MCH 30.4 pg (25.7-33.7); MCHC 33.3 g/dl (32.0-36.0); MEAN CELL VOLUME 91.2 fl (80-96); MEAN PLT VOLUME 8.5 fl (7.5-11.1); MONO % 6.8 % (3.8-10.2); PLATELET COUNT 393 K/MM3 (134-434); RBC 3.06 M/mm3 (3.60-5.2); RDW 13.3 % (11.6-15.6); WHITE BLOOD COUNT 10.4 K/mm3 (4.0-10.0)
--- NOTE | 2019-03-19 08:47 | PN ---
Progress Note, Physician History of Present Illness: patient feeling better no complaints - Current Medication List Current Medications: Active Medications Acetaminophen (Ofirmev Injection -) 1,000 mg IVPB Q6H PRN PRN Reason: PAIN OR FEVER Aspirin (Asa -) 81 mg PO DAILY [facility] Last Admin: 03/18/19 10:16 Dose: 81 mg Atorvastatin Calcium (Lipitor -) 40 mg PO HS [facility] Last Admin: 03/18/19 21:56 Dose: 40 mg Heparin Sodium (Porcine) (Heparin -) 5,000 unit SQ TID [facility] Last Admin: 03/19/19 06:18 Dose: 5,000 unit Piperacillin Sod/Tazobactam (Sod 3.375 gm/ Dextrose) 50 mls @ 100 mls/hr IVPB Q8H-IV [facility]; Protocol Last Admin: 03/19/19 02:00 Dose: 100 mls/hr Insulin Aspart (Novolog Vial Sliding Scale -) 1 vial SQ ACHS [facility]; Protocol Last Admin: 03/19/19 06:18 Dose: Not Given Insulin Detemir (Levemir Vial) 5 units SQ AM [facility] Last Admin: 03/19/19 06:18 Dose: 5 units Lisinopril (Prinivil) 20 mg PO DAILY [facility] Last Admin: 03/18/19 10:16 Dose: 20 mg Sodium Hypochlorite (Dakin's Solution 0.5% (Full Strength) -) 1 applic TP DAILY [facility] Last Admin: 03/18/19 10:45 Dose: 1 applic - Objective Vital Signs: Vital Signs Temperature 98.3 F 03/19/19 05:57 Pulse Rate 92 H 03/19/19 05:57 Respiratory Rate 20 03/19/19 05:57 Blood Pressure 142/73 03/19/19 05:57 O2 Sat by Pulse Oximetry (%) 98 03/18/19 21:00 Constitutional: Yes: No Distress, Calm Cardiovascular: Yes: S1, S2 Respiratory: Yes: Regular, CTA Bilaterally Gastrointestinal: Yes: Normal Bowel Sounds, Soft Musculoskeletal: Yes: WNL Extremities: Yes: Other Wound/Incision: Yes: Dressing Dry and Intact Neurological: Yes: Alert, Oriented Psychiatric: Yes: Alert, Oriented Labs: CBC, BMP 03/19/19 06:50 03/17/19 06:50 INR, PTT INR 1.06 (0.83-1.09) 03/16/19 06:35 Assessment/Plan 63 y/o F with PMH IDDM, HTN, HLD, RI, angina, CVA/TIA (with no residual deficits ), who presents to the ED c/o R foot pain over the past 2-3 days. R foot cellulitis rfoot abscess osteomyelitis of the rt foot uti dm continue current mgmt repeat cx noted wound care rest as per the team
[2019-03-19] MEDS: LISINOPRIL 20 MG TABLET (FP) PO SCH (09:00)
[2019-03-19] MEDS: ASPIRIN 81 MG CHEWABLE TABLETS PO SCH (09:00)
[2019-03-19] MEDS: SODIUM HYPOCHLORITE 0.5% 473 ML- BULK BOTTLE TP SCH (09:01)
--- NOTE | 2019-03-19 12:58 | PN ---
Progress Note (short form) - Note Progress Note: 63 y/o female well known to our practice who was admitted last week with right foot osteo. Has been feeling increasingly better after having bedside drainage done. Had MRI done. States minimal pain today. Minimal drainage noted. O: Right foot with incision site in interspace now partially healed, decreasing erythema noted, no drainage noted, no purulence, no malodor noted, a: Osteo3 and 4th digit Cellulitis P: Evaluated and reviewed Does look improved WBC noted; MRI reviewed; no acute abscess formation Cont IV abx Will need to make sure home nursing is coming for dressing changes at home Dakins wet to dry and DSD every other day at home Per patient possible d/c tomorrow; Dr. Singh will see prior to d/c and then can follow up in wound care with him every Tuesday.
--- NOTE | 2019-03-19 13:51 | PN ---
Physical Exam: SUBJECTIVE: Patient seen and examined at bedside. pt states that pain is improving and she is ready to leave. OBJECTIVE: Vital Signs Period Temp Pulse Resp BP Sys/Hidalgo Pulse Ox Last 24 Hr 98.2 F-98.4 F 85-95 16-20 112-149/62-73 95-98 GENERAL: The patient is awake, alert, and fully oriented, in no acute distress. HEAD: Normal with no signs of trauma. LUNGS: Breath sounds equal, clear to auscultation bilaterally, no wheezes, no crackles, no accessory muscle use. HEART: Regular rate and rhythm, S1, S2 without murmur ABDOMEN: Soft, nontender, nondistended, normoactive bowel sounds. EXTREMITIES: R foot ulcer on 4th digit PSYCH: Normal mood, normal affect. Laboratory Results - last 24 hr 03/19/19 03/19/19 06:50 11:45 WBC 10.4 H RBC 3.06 L Hgb 9.3 L Hct 27.9 L MCV 91.2 MCH 30.4 MCHC 33.3 RDW 13.3 Plt Count 393 MPV 8.5 Absolute Neuts (auto) 7.1 Neutrophils % 68.0 Lymphocytes % 23.2 Monocytes % 6.8 Eosinophils % 1.4 Basophils % 0.6 Nucleated RBC % 0 POC Glucometer 141 Microbiology 03/16/19 17:00 Leg - Right Lower Gram Stain - Final 03/16/19 17:00 Leg - Right Lower Wound Culture - Final NO GROWTH OF AEROBIC ORGANISMS AFTER 48 HOURS INCUBATION 03/15/19 21:22 Blood - Peripheral Venous Blood Culture - Preliminary NO GROWTH OBTAINED AFTER 72 HOURS, INCUBATION TO CONTINUE FOR 2 DAYS. 03/15/19 21:22 Blood - Peripheral Venous Blood Culture - Preliminary NO GROWTH OBTAINED AFTER 72 HOURS, INCUBATION TO CONTINUE FOR 2 DAYS. Active Medications Acetaminophen (Ofirmev Injection -) 1,000 mg IVPB Q6H PRN PRN Reason: PAIN OR FEVER Aspirin (Asa -) 81 mg PO DAILY [facility] Last Admin: 03/19/19 09:00 Dose: 81 mg Atorvastatin Calcium (Lipitor -) 40 mg PO HS [facility] Last Admin: 03/18/19 21:56 Dose: 40 mg Heparin Sodium (Porcine) (Heparin -) 5,000 unit SQ TID [facility] Last Admin: 03/19/19 06:18 Dose: 5,000 unit Piperacillin Sod/Tazobactam (Sod 3.375 gm/ Dextrose) 50 mls @ 100 mls/hr IVPB Q8H-IV [facility]; Protocol Last Admin: 03/19/19 09:00 Dose: 100 mls/hr Insulin Aspart (Novolog Vial Sliding Scale -) 1 vial SQ ACHS [facility]; Protocol Last Admin: 03/19/19 11:48 Dose: Not Given Insulin Detemir (Levemir Vial) 5 units SQ AM [facility] Last Admin: 03/19/19 06:18 Dose: 5 units Lisinopril (Prinivil) 20 mg PO DAILY [facility] Last Admin: 03/19/19 09:00 Dose: 20 mg Sodium Hypochlorite (Dakin's Solution 0.5% (Full Strength) -) 1 applic TP DAILY [facility] Last Admin: 03/19/19 09:01 Dose: 1 applic ASSESSMENT/PLAN: 63 yo F w/ PMH of DM, CVA, CAD, previous OM of L foot and recent hospitalization for mgmt of R foot OM. Admitted with Sepsis from R foot ulcer and osteomyletis. 1. Sepsis secondary to Right foot osteomylitis. - On Zosyn day 5. -ID recommendations appreciated -Podiatry following the case -MRI results show -Possible d/c tomorrow 2. DM -continue insulin sliding scale
--- NOTE | 2019-03-19 14:45 | PN ---
Teaching Attending Note Name of Resident: Jahaira Wu ATTENDING PHYSICIAN STATEMENT I saw and evaluated the patient. I reviewed the resident's note and discussed the case with the resident. I agree with the resident's findings and plan as documented. SUBJECTIVE:asymptomatic. denies Cp, SOB, fever, chills, N/V/C/d OBJECTIVE: Last Vital Signs Temp Pulse Resp BP Pulse Ox 98.2 F 86 20 149/62 95 03/19/19 10:00 03/19/19 10:00 03/19/19 10:00 03/19/19 10:00 03/19/19 10:00 General NAD Foot R foot wrapped, c/d/i ASSESSMENT AND PLAN: 63yo F wtih PMH DM, CVA, CAD, and previous OM of L foot and recent hospitalization where she was medically managed for R foot OM with PICC line placed for long term acute care registered nurse IV abx with Ceftriaxone returns to the hospital with draining ulcer and chills. found to be septic from foot ulcer and OM. 1. Sepsis due to R foot OM of 4th Ddigit- s/p bedside I&D 03/16. MRI consistent with previous OM, small fluid collection between 1st and 2nd digit does not require intervention per podiatry. on zosyn. will switch back to ceftriaxone and complete 6 week course. wound care instructions per podiatry. ID and podiatry on board. 2. DM- improved. on levemir 5 units HS. cont iss and bgm. will reach out to pharmacy to determine if there was an insurance pre-auth that is required. 3. hypokalemia- improved. monitor 4. Normocytic anemia-+iron def anemia. venofer given. will d/c on iron supplements. hgb stable. no indication for transfusion. 5. CVA- on asa/statin 6. CAD- on asa/statin/acei 7. DVT ppx- heparin 8. medically optimized for discharge. will need to re-initiate VNS and home care services. can d/c home when established
--- NOTE | 2019-03-19 15:58 | DS ---
Physical Exam: SUBJECTIVE: Patient seen and examined at bedside. No acute overnight events. OBJECTIVE: Vital Signs Period Temp Pulse Resp BP Sys/Hidalgo Pulse Ox Last 24 Hr 97.9 F-98.4 F 80-95 16-20 112-149/62-73 95-98 PHYSICAL EXAM GENERAL: The patient is awake, alert, and fully oriented, in no acute distress. HEAD: Normal with no signs of trauma. LUNGS: Breath sounds equal, clear to auscultation bilaterally, no wheezes, no crackles, no accessory muscle use. HEART: Regular rate and rhythm, S1, S2 without murmur, rub or gallop. ABDOMEN: Soft, nontender, nondistended, normoactive bowel sounds, no guarding. EXTREMITIES: 2+ pulses, warm, well-perfused, no edema. non-purulent ulceration on R foot. PSYCH: Normal mood, normal affect. SKIN: Warm, dry, normal turgor LABS Laboratory Results - last 24 hr 03/19/19 03/19/19 06:50 11:45 WBC 10.4 H RBC 3.06 L Hgb 9.3 L Hct 27.9 L MCV 91.2 MCH 30.4 MCHC 33.3 RDW 13.3 Plt Count 393 MPV 8.5 Absolute Neuts (auto) 7.1 Neutrophils % 68.0 Lymphocytes % 23.2 Monocytes % 6.8 Eosinophils % 1.4 Basophils % 0.6 Nucleated RBC % 0 POC Glucometer 141 HOSPITAL COURSE: Date of Admission:03/15/19 Pt is a 63F with PMH IDDM, HTN, HLD, [place], angina, CVA/TIA (with no residual deficits), discharged on 03/13/19 with PICC line and ceftriaxone 2g daily for treatment of OM of R 2nd and 3rd tarsals presenting from home home for worsening and malodorous drainage, subjective fevers x 2 days. Pt was discharged with infusion nurse and visiting nurse set up for wound dressing. The wound however remained unchanged because the nurse did not come in and started to produce malodorus and liquid soaking through the dressing. Pt also only received metformin for DM due to failure of authorization for the insulin at the pharmacy. They were also unable to follow the glucose level because they had no glucometer. They came in due to worsening chills and increased drainage of the wound. While pt admitted blood cultures were performed and were negative. pt was started on zosyn and continued for 5 days. I&D performed on . MRI was performed to r/o deep abscess. Pt now has improvement of symptoms. MRI R lower Extremity: Impression: 1. Decreased soft tissue edema the foot and absence of the previously seen fluid between the third and fourth toes. 2. Bone marrow edema of the proximal phalanx and possibly the proximal aspect of the middle phalanx of the third toe which in the setting of an infectious process is suspicious for osteomyelitis 3. Bone marrow edema of the proximal and middle phalanges of the fourth toe and possibly the distal phalanx in the setting of an infectious process is suspicious for osteomyelitis. 4. Question of faint bone marrow edema of the proximal phalanges of the second and fifth toes could represent reactive osteitis. 5. Small area of fluid between the first and second toe proximal phalanges extending dorsally. Date of Discharge: 03/19/19 63 y/o F with PMH IDDM, HTN, CVA, CAD, prev OM L foot, recent hosp for R foot OM d/c on ceftriaxone via PICC, who was found to be septic 2/2 R foot OM of 4th digit. R foot OM of 4th digit -s/p bedside I&D 03/16 -last dose zosyn ( day 5-03/19/19) ID: Dr. Sainz -d/c home on ceftriaxone 2gm for 6 weeks. -wound cx(-), blood cx (-) -Dakin vickey application per podiatry HTN- controlled -c/w lisinopril IDDM -c/w levemir 5u sq AM, ISS, BGM ACHS -advised on tight BG control to aid w wound healing. iron def anemia -pt d/c home on iron supplements -pt should f/u outpt CVA -c/w asa, lipitor CAD -c/w asa Diet, Activity, Other Instructions: You were seen the ED for complaints oozing and pain from your wound found to have osteomyelitis (infection of your bone). You were seen by the haulage engine operator and had your infection surgically drained. During your hospital stay, you were also given IV antibiotics to treat your infection. Your symptoms improved. You are being discharged home with a PICC (peripherally inserted central catheter) line and visiting nurse services in order to continue the remainder of your IV antibiotic treatment. MEDICATIONS We have made the following adjustments to your medications: -You will need to continue taking IV antibiotics through your PICC line. Please START taking the follow medication: Ceftriaxone 2 gm once a day via intravenously for 6 weeks. Your last day of IV antibiotics will be on Friday, April 12, 2019. -Basaglar 5 Units in the morning time. Continue to monitor your sugars in the morning and before each meal and bring this list with you to your doctors appointment. they may need to adjust your insulin in the future. You should have a repeat A1c in 3 months to monitor your diabetes - Iron supplements twice a day. This can turn your stools black and cause constipation. Ensure you are having daily bowel movements FOLLOW UP Please follow up with your primary care physician, Dr. Santana, within 1 week. You well need weekly blood work done (CBC/CMP) to make sure you blood count and kidney function are stable. Please follow up with your haulage engine operator, Dr. Singh, for post-op follow up within 1 week. Please follow up with your infectious disease doctor, Dr. Sainz as an outpatient. Referrals: Everton Sainz MD [Staff Physician] - Negro Singh MD [Staff Physician] - 1 Week Juliann Santana MD [Primary Care Provider] - 1 Week Dispo Pt discharged home w/ PICC line for ceftriaxone. Pt will be having visiting nurse service. Minutes to complete discharge: 60 Discharge Summary Reason For Visit: POSTOPERATIVE WOUND INFECTION Current Active Problems Wound infection after surgery (Acute) Condition: Improved - Instructions Diet, Activity, Other Instructions: You presented to the hospital with swelling and drainage from your wound. Your imaging revealed that you had a bone infection ( osteomyelitis) in your right foot. You were treated with antibiotics. Medication Changes: 1. You will need to continue taking IV antibiotics through your PICC line. Please START taking the follow medication: Ceftriaxone 2 gm once a day via intravenously for 6 weeks. Your last day of IV antibiotics will be on Friday, April 12, 2019. Follow up with the following physicians: 1. Please follow up with your primary care physician within 1 week. You will need iron studies repeated in 3 months Please follow up with your haulage engine operator, Dr. Singh within 1 week. Please follow up with your infectious disease doctor, Dr. Sainz within 1 week. Medications: 1. Please continue all your home medications as prescribed. 2. Use Dakins solution wet to dry every other day at home. 3.Basaglar 5 Units in the morning time. Continue to monitor your sugars in the morning and before each meal and bring this list with you to your doctors appointment. they may need to adjust your insulin in the future. You should have a repeat A1c in 3 months to monitor your diabetes 4. Iron supplements twice a day. This can turn your stools black and cause constipation. Ensure you are having daily bowel movements . Please return to the ER if you have any signs or symptoms of chest pain, shortness of breath, uncontrollable fever, chills, nausea, vomiting, numbness, tingling, or weakness in any part of your body, changes in vision, or slurred speech. Please return to the ER if symptoms persist, worsen, or new symptoms arise. Referrals: Negro Singh MD [Staff Physician] - - Home Medications Comprehensive Discharge Medication List: Ambulatory Orders Aspirin [ASA -] 81 mg PO DAILY 08/01/17 Atorvastatin Ca [Lipitor] 40 mg PO HS #30 tablet 08/02/17 Lisinopril [Prinivil] 20 mg PO DAILY 03/04/19 Insulin Glargine,Hum.rec.anlog [Lantus Solostar PEN -] 5 units SQ HS #1 pen [employer] [Glucometer Device] 1 each .ROUTE ASDIR #1 kit [employer] [Glucometer Test Strips #100] 1 each .ROUTE ASDIR # 1 box 03/12/19 Ceftriaxone 2 gm-D5w Bag 2 gm IV DAILY 03/15/19 Ferrous Sulfate 325 mg PO BID #60 tablet 03/19/19 [facility] [Outpatient Order] 1 each ASDIR #1 misc Sodium Hypochlorite 0.5% [Dakin's Solution 0.5% (Full Strength) -] 1 applic TP DAILY #1 tube 03/19/19 This patient is new to me today: No Emergency Visit: No Critical Care patient: No - Discharge Referral Referred to [facility] Med P.C.: No
[2019-03-19] MEDS ORDERED: INSULIN (NOVOLOG) ASPART 100 UNITS/ML 10ML VIAL ONE (17:54)
[2019-03-19] MEDS: FERROUS SO4 325 MG TABLET (FP) PO SCH (17:56)
[2019-03-19] MEDS: ATORVASTATIN CA 40 MG TABLET (FP) PO SCH (21:54)
[2019-03-20] MEDS: INSULIN SLIDING SCALE (NOVOLOG) 1 VIAL SQ SCH ×3 (06:06→16:49)
[2019-03-20] MEDS: INSULIN (LEVEMIR) 100 UNITS/ML UNITS SQ SCH (06:21)
[2019-03-20] MEDS: HEPARIN NA (PORCINE) 5,000 UNITS/ML 1ML VIAL SQ SCH ×2 (06:21→13:54)
[2019-03-20] MEDS: FERROUS SO4 325 MG TABLET (FP) PO SCH ×2 (08:27→16:49)
[2019-03-20] MEDS ORDERED: DEXTROSE 5%-WATER 100 ML IVPB ONE (09:04)
[2019-03-20] MEDS: LISINOPRIL 20 MG TABLET (FP) PO SCH (09:05)
[2019-03-20] MEDS: ASPIRIN 81 MG CHEWABLE TABLETS PO SCH (09:05)
[2019-03-20] MEDS: SODIUM HYPOCHLORITE 0.5% 473 ML- BULK BOTTLE TP SCH (09:06)
[2019-03-20] MEDS ORDERED: CEFTRIAXONE 2 GM in DEXTROSE 5%-WATER 100 ML IVPB SCH (10:00)
[2019-03-20] MEDS ORDERED: INSULIN (NOVOLOG) ASPART 100 UNITS/ML 10ML VIAL ONE ×2 (11:58→16:48)
--- NOTE | 2019-03-20 12:16 | PN ---
Progress Note, Physician History of Present Illness: stable no new issues - Current Medication List Current Medications: Active Medications Acetaminophen (Ofirmev Injection -) 1,000 mg IVPB Q6H PRN PRN Reason: PAIN OR FEVER Aspirin (Asa -) 81 mg PO DAILY [facility] Last Admin: 03/20/19 09:05 Dose: 81 mg Atorvastatin Calcium (Lipitor -) 40 mg PO HS [facility] Last Admin: 03/19/19 21:54 Dose: 40 mg Ferrous Sulfate (Feosol -) 325 mg PO BIDWM [facility] Last Admin: 03/20/19 08:27 Dose: 325 mg Heparin Sodium (Porcine) (Heparin -) 5,000 unit SQ TID [facility] Last Admin: 03/20/19 06:21 Dose: 5,000 unit Ceftriaxone Sodium 2 gm/ (Dextrose) 100 mls @ 100 mls/hr IVPB DAILY [facility]; Protocol Last Admin: 03/20/19 09:05 Dose: 100 mls/hr Insulin Aspart (Novolog Vial Sliding Scale -) 1 vial SQ ACHS [facility]; Protocol Last Admin: 03/20/19 11:58 Dose: 2 units Insulin Detemir (Levemir Vial) 5 units SQ AM [facility] Last Admin: 03/20/19 06:21 Dose: 5 units Lisinopril (Prinivil) 20 mg PO DAILY [facility] Last Admin: 03/20/19 09:05 Dose: 20 mg Sodium Hypochlorite (Dakin's Solution 0.5% (Full Strength) -) 1 applic TP DAILY [facility] Last Admin: 03/20/19 09:06 Dose: 1 applic - Objective Vital Signs: Vital Signs Temperature 98.5 F 03/20/19 09:10 Pulse Rate 90 03/20/19 09:10 Respiratory Rate 20 03/20/19 09:10 Blood Pressure 138/71 03/20/19 09:10 O2 Sat by Pulse Oximetry (%) 94 L 03/20/19 10:00 Constitutional: Yes: No Distress, Calm Cardiovascular: Yes: Regular Rate and Rhythm Respiratory: Yes: Regular, CTA Bilaterally Gastrointestinal: Yes: Normal Bowel Sounds, Soft Musculoskeletal: Yes: WNL Extremities: Yes: Other Wound/Incision: Yes: Dressing Dry and Intact Neurological: Yes: Alert, Oriented Psychiatric: Yes: Alert, Oriented Labs: CBC, BMP 03/19/19 06:50 03/17/19 06:50 INR, PTT INR 1.06 (0.83-1.09) 03/16/19 06:35 Assessment/Plan 63 y/o F with PMH IDDM, HTN, HLD, [place], angina, CVA/TIA (with no residual deficits ), who presents to the ED c/o R foot pain over the past 2-3 days. R foot cellulitis rfoot abscess osteomyelitis of the rt foot uti dm continue current mgmt complete the abx course rest as per the team
[2019-03-20 14:32] VITALS: BP 148/77; PULSE 88; TEMP 97.8
--- NOTE | 2019-03-20 15:23 | PN ---
Teaching Attending Note Name of Resident: Jahaira Wu ATTENDING PHYSICIAN STATEMENT I saw and evaluated the patient. I reviewed the resident's note and discussed the case with the resident. I agree with the resident's findings and plan as documented. SUBJECTIVE: Feeling better, less discomfort RLE. No fever/chills. OBJECTIVE: Afebrile, Hemodynamically Stable. Last Vital Signs Temp Pulse Resp BP Pulse Ox 97.8 F 88 20 148/77 94 L 03/20/19 13:00 03/20/19 13:00 03/20/19 13:00 03/20/19 13:00 03/20/19 10:00 HEENT - Atraumatic, Normocephalic. Heart - S1, S2, RRR Lungs - clear to auscultation Abdomen - Soft, non-tender. Bowel Sounds normal. Extremities - no edema, no calf tenderness. R foot ulcer dressed. Laboratory Results - last 24 hr 03/19/19 03/19/19 03/20/19 16:57 21:11 05:52 POC Glucometer 246 103 137 03/20/19 11:48 POC Glucometer 163 Current Medications Generic Name Dose Route Start Last Admin Trade Name Freq PRN Reason Stop Dose Admin Acetaminophen 1,000 mg 03/15/19 23:50 Ofirmev Injection - IVPB Q6H PRN PAIN OR FEVER Aspirin 81 mg 03/16/19 10:00 03/20/19 09:05 Asa - PO 81 mg DAILY [facility] Administration Atorvastatin Calcium 40 mg 03/16/19 22:00 03/19/19 21:54 Lipitor - PO 40 mg HS [facility] Administration Ferrous Sulfate 325 mg 03/19/19 17:30 03/20/19 08:27 Feosol - PO 325 mg BIDWM [facility] Administration Heparin Sodium (Porcine) 5,000 unit 03/16/19 14:00 03/20/19 13:54 Heparin - SQ 5,000 unit TID [facility] Administration Ceftriaxone Sodium 2 gm/ 100 mls @ 100 mls/hr 03/20/19 10:00 03/20/19 09:05 Dextrose IVPB 100 mls/hr DAILY [facility] Administration Protocol Insulin Aspart 1 vial 03/16/19 10:30 03/20/19 11:58 Novolog Vial Sliding Scale - SQ 2 units ACHS [facility] Administration Protocol Insulin Detemir 5 units 03/17/19 07:00 03/20/19 06:21 Levemir Vial SQ 5 units AM [facility] Administration Lisinopril 20 mg 03/16/19 10:00 03/20/19 09:05 Prinivil PO 20 mg DAILY [facility] Administration Sodium Hypochlorite 1 applic 03/17/19 10:00 03/20/19 09:06 Dakin's Solution 0.5% (Full Strength) - TP 1 applic DAILY [facility] Administration Home Medications Medication Instructions Recorded Aspirin [ASA -] 81 mg PO DAILY 08/01/17 Atorvastatin Ca [Lipitor] 40 mg PO HS #30 tablet 08/02/17 Lisinopril [Prinivil] 20 mg PO DAILY 03/04/19 Insulin Glargine,Hum.rec.anlog 5 units SQ HS #1 pen 03/12/19 [Lantus Solostar PEN -] [employer] 1 each .ROUTE ASDIR #1 kit 03/12/19 [Glucometer Device] [employer] 1 each .ROUTE ASDIR #1 box 03/12/19 [Glucometer Test Strips #100] Ceftriaxone 2 gm-D5w Bag 2 gm IV DAILY 03/15/19 Ferrous Sulfate 325 mg PO BID #60 tablet 03/19/19 [facility] 1 each ASDIR #1 misc 03/19/19 [Outpatient Order] Sodium Hypochlorite 0.5% [Dakin's 1 applic TP DAILY #1 tube 03/19/19 Solution 0.5% (Full Strength) -] ASSESSMENT AND PLAN: 63 year old female with DM 2, CVA, CAD, prior hx of OM of L foot, recent hospitalization for OM R foot s/p debridement and I/D by Podiatry (on long-term IV Ceftriaxone via RUE PICC), now re-presents with sepsis due to R foot infection/draining ulcer. 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 1. Sepsis secondary to R foot Osteomyelitis (on IV Ceftrixone via RUE PICC) - s/ p bedside I&D 03/16. MRI consistent with prior known OM, with small fluid collection between 1st and 2nd digits that does not require intervention as per podiatry. Treated acutely with Zosyn. Sepsis resolved. Wound Cx negative. Medically Stable for discharge on Ceftriaxone to complete 6 week course as per ID. Wound care instructions per podiatry. Importance of antibiotic regimen compliance stressed to the patient. 2. DM 2 - continue home regimen Glargine. 3. Hypokalemia - resolved s/p repletion. 4. Normocytic anemia - Mutifactorial including iron deficiency. s/p IV Venofer. Will require Iron supplementation. Further wotk-up as out-patient. 5. Hx CVA - continue Aspirin/Statin 6. CAD - Continue Aspirin, LUKAS-I, Statin. DVT Px - Heparin SQ Dispo - medically optimized for discharge. For VNS Wound Care and infusion services to complete 6 weeks total Ceftriaxone. ID and Podiatry follow ups on discharge.
== END 2019-03-20 20:31 | disposition home or self-care (01) | DRG 721 ==
LOC: JER 17:00 → JERBED 21:43 → J6S 03-16 01:38
PROVIDERS: ADMIT Internal Medicine
PROC: 0J9Q0ZX Drainage of Right Foot Subcutaneous Tissue and Fascia, Open Approach, Diagnostic (ICD-10-PCS; principal; 2019-03-16)
DX: T81.49XA Infection following a procedure, other surgical site, initial encounter (principal); T81.44XA Sepsis following a procedure, initial encounter; A41.9 Sepsis, unspecified organism; E11.69 Type 2 diabetes mellitus with other specified complication; M86.8X7 Other osteomyelitis, ankle and foot; I10 Essential (primary) hypertension; E78.5 Hyperlipidemia, unspecified; I25.2 Old myocardial infarction; F41.8 Other specified anxiety disorders; F31.89 Other bipolar disorder; I25.119 Atherosclerotic heart disease of native coronary artery with unspecified angina pectoris; R00.0 Tachycardia, unspecified; D50.8 Other iron deficiency anemias; L97.518 Non-pressure chronic ulcer of other part of right foot with other specified severity; D72.828 Other elevated white blood cell count; H54.40 Blindness, one eye, unspecified eye; R42 Dizziness and giddiness; E11.621 Type 2 diabetes mellitus with foot ulcer; E87.6 Hypokalemia; E11.65 Type 2 diabetes mellitus with hyperglycemia; L03.115 Cellulitis of right lower limb; N39.0 Urinary tract infection, site not specified; L02.611 Cutaneous abscess of right foot; Z91.14 Patient's other noncompliance with medication regimen; Y83.8 Other surgical procedures as the cause of abnormal reaction of the patient, or of later complication, without mention of misadventure at the time of the procedure; Z86.73 Personal history of transient ischemic attack (TIA), and cerebral infarction without residual deficits; Z79.4 Long term (current) use of insulin
CPT/HCPCS: 36415; 71045-TC-FY; 73630-TC-RT-FY; 73721-RT-TC; 80048; 80053; 81003; 82009; 82550; 82553; 82728; 82962; 83540; 83550; 83605; 83735; 84100; 84484; 85025; 85027; 85610; 85730; 87040; 87070; 87077; 87086; 87205; 87324; 87449; 93005; 93010; 99284-25; J1644; J1756; J7030

== ENCOUNTER 2019-06-18 22:13 | Inpatient (IN) | payer OTHER ==
--- NOTE | 2019-06-18 23:35 | PDOC ---
History of Present Illness - General Chief Complaint: Pain Stated Complaint: VOMITING ABD PAIN Time Seen by Provider: 06/18/19 23:28 History Source: Patient, Family - History of Present Illness Initial Comments: 06/19/19 04:32 Ms. Perez is a 63 y/o woman with hx IDDM, HTN, HLD, TIA in March, multiple chronic wounds followed by wound care secondary to DM, p/w acute onset nausea, vomiting, abdominal pain that started last night. She is accompanied by her daughter. She reports that the abdominal pain began last night at approx 11pm. She reports going to sleep, but that the pain persisted to today and worsened over the course of the day. She describes the pain as a diffuse ache in her abdomen with no radiation outside of her abdomen. She reports worsening nausea since this morning. She reports that she ate a donut for breakfast but has been unable to tolerate po of any kind since then. She reports multiple episodes of non bloody non bilious vomiting throughout the day. She denies any fevers, chills, diarrhea, fatigue, weakness, chest pain, shortness of breath. She denies any prior abdominal surgeries. Past History - Past Medical History Allergies/Adverse Reactions: Allergies Allergy/AdvReac Type Severity Reaction Status Date / Time No Known Drug Allergies Allergy Verified 03/15/19 17:15 lactose AdvReac Verified 03/15/19 17:15 Home Medications: Ambulatory Orders Aspirin [ASA -] 81 mg PO DAILY 08/01/17 Atorvastatin Ca [Lipitor] 40 mg PO HS #30 tablet 08/02/17 Lisinopril [Prinivil] 20 mg PO DAILY 03/04/19 Insulin Glargine,Hum.rec.anlog [Lantus Solostar PEN -] 5 units SQ HS #1 pen Ferrous Sulfate 325 mg PO BID #60 tablet 03/19/19 Insulin Detemir [Levemir Flextouch] 5 unit SQ DAILY #1 insuln.pen 03/20/19 Anemia: No Asthma: No Cancer: No Cardiac Disorders: Yes (ANGINA) CVA: No COPD: No CHF: No Diabetes: Yes (IDDM) GI Disorders: No Disorders: No HTN: Yes Hypercholesterolemia: Yes Liver Disease: No Psychiatric Problems: Yes (depression/ ANXIETY) Seizures: No Thyroid Disease: No - Immunization History Immunization Up to Date: Yes - Psycho Social/Smoking Cessation Hx Smoking Status: No Smoking History: Never smoked Have you smoked in the past 12 months: No Number of Cigarettes Smoked Daily: 0 Cigars Per Day: 0 Hx Alcohol Use: No Drug/Substance Use Hx: No Substance Use Type: None Hx Substance Use Treatment: No Review of Systems - Review of Systems Able to Perform ROS?: Yes Comments:: 06/19/19 04:46 ROS: GENERAL/CONSTITUTIONAL: No fever or chills. No weakness. HEAD, EYES, EARS, NOSE AND THROAT: No change in vision. No ear pain or discharge. No sore throat. CARDIOVASCULAR: No chest pain or shortness of breath RESPIRATORY: No cough, wheezing, or hemoptysis. GASTROINTESTINAL: Abdominal pain, Nausea, vomiting. No diarrhea or constipation. GENITOURINARY: No dysuria, frequency, or change in urination. MUSCULOSKELETAL: No joint or muscle swelling or pain. No neck or back pain. SKIN: No rash NEUROLOGIC: No headache, vertigo, loss of consciousness, or change in strength/ sensation. ENDOCRINE: No increased thirst. No abnormal weight change HEMATOLOGIC/LYMPHATIC: No anemia, easy bleeding, or history of blood clots. ALLERGIC/IMMUNOLOGIC: No hives or skin allergy. *Physical Exam - Vital Signs Last Vital Signs Temp Pulse Resp BP Pulse Ox 98.3 F 109 H 19 128/74 100 06/18/19 22:21 06/18/19 22:21 06/18/19 22:21 06/18/19 22:21 06/18/19 22:21 - Physical Exam Comments: 06/19/19 04:46 PE: GENERAL: Awake, alert, and fully oriented, mild distress HEAD: No signs of trauma, normocephalic, atraumatic EYES: PERRLA, EOMI, sclera anicteric, conjunctiva clear ENT: Auricles normal inspection, hearing grossly normal, nares patent, oropharynx clear without exudates. Moist mucosa NECK: Normal ROM, supple, no lymphadenopathy, JVD, or masses LUNGS: No distress, speaks full sentences, clear to auscultation bilaterally HEART: Regular rate and rhythm, normal S1 and S2, no murmurs, rubs or gallops, peripheral pulses normal and equal bilaterally. ABDOMEN: Mild tenderness to palpation in all four abdominal quadrants. Soft, normoactive bowel sounds. No guarding, no rebound. No masses EXTREMITIES : Normal inspection, Normal range of motion, no edema. No clubbing or cyanosis NEUROLOGICAL: Cranial nerves II through XII grossly intact. Normal speech, normal gait, no focal sensorimotor deficits SKIN: Warm, Dry, normal turgor, no rashes or lesions noted ED Treatment Course - LABORATORY CBC & Chemistry Diagram: 06/19/19 01:35 06/19/19 01:35 Medical Decision Making - Medical Decision Making 06/19/19 04:47 63 F with hx IDDM, HTN, HLD p/w aute onset nausea, vomiting, abdominal pain. Differential includes appendicitis, pancreatitis, cholecystitis vs other intrabdominal pathology. Plan: CBC CMP Cardiac profile EKG CXR Lipase Lactate CT abdomen pelvis with contrast pending Creatinine result UA Urine culture Pepcid Zofran 1L NS fluid bolus Dispo: Pending labs, imaging 06/19/19 06:02 CT read pending Discharge - Discharge Information Problems reviewed: Yes - Follow up/Referral Referrals: Juliann Santana MD [Primary Care Provider] - - Patient Discharge Instructions - Post Discharge Activity
[2019-06-19] MEDS ORDERED: SODIUM CHLORIDE 0.9% 500 ML INFUS.BAG IV ONE (00:25)
[2019-06-19] MEDS ORDERED: ONDANSETRON 4 MG/2 ML VIAL IVPUSH ONE (00:25)
[2019-06-19] MEDS ORDERED: FAMOTIDINE 20 MG/50 ML IVPB 20 MG/50 ML MG IVPB ONE ×2 (00:25→01:22)
[2019-06-19] MEDS ORDERED: ONDANSETRON 4 MG/2 ML VIAL ONE ×2 (01:22→13:26)
--- NOTE | 2019-06-19 01:39 | PDOC ---
Attending Attestation - Resident Resident Name: Fransisco Palacios - ED Attending Attestation I have performed the following: I have examined & evaluated the patient, The case was reviewed & discussed with the resident, I agree w/resident's findings & plan, Exceptions are as noted - HPI HPI: 06/19/19 01:49 63 yo female p/w abdominal pain and nausea and vomiting since last evening - Physicial Exam PE: 06/19/19 01:50 slender 63 yo female p/w abd pain head ncat neck supple lungs cta b/l cvs [id number] abdomen no rebound but lower quadrant discomfort extremities no edema skin warm and dry neuro axox3, ambulatory - Medical Decision Making 06/19/19 01:53 plan cbc,comp,ct scan ,IVF,anti emetics
[2019-06-19 01:45] LABS: BASO % 0.8 % (0-2.0); HEMATOCRIT 35.4 % (32.4-45.2); HEMOGLOBIN 11.9 GM/dL (10.7-15.3); MCH 30.5 pg (25.7-33.7); MCHC 33.8 g/dl (32.0-36.0); MEAN CELL VOLUME 90.4 fl (80-96); MONO % 5.3 % (3.8-10.2); NEUT % 64.9 % (42.8-82.8); PLATELET COUNT 251 K/MM3 (134-434); RBC 3.91 M/mm3 (3.60-5.2); RDW 14.2 % (11.6-15.6)
[2019-06-19 02:16] LABS: ALBUMIN 4.5 g/dl (3.4-5.0); ALK PHOS 87 U/L (45-117); ANION GAP 9 MMOL/L (8-16); BLOOD UREA NITROGEN 20.1 mg/dL (7-18); CALCIUM 10.1 mg/dL (8.5-10.1); CHLORIDE 100 mmol/L (98-107); CO2 29 mmol/L (21-32); GLUCOSE,RANDOM 253 mg/dL (74-106); POTASSIUM 4.4 mmol/L (3.5-5.1); SGOT/AST 7 U/L (15-37); SGPT/ALT 15 U/L (13-61); SODIUM 138 mmol/L (136-145); TOT PROT 8.8 g/dl (6.4-8.2)
[2019-06-19 02:22] LABS: EPI CELLS 2.1 /HPF (0-5/HPF); HYALINE CASTS 43 /lpf (0-8); URINE APPEARANCE TURBID; URINE BACTERIA 7395.4 /hpf (NEGATIVE); URINE BILIRUBIN NEGATIVE (NEGATIVE); URINE COLOR YELLOW; URINE GLUCOSE (UA) 3+ (NEGATIVE); URINE KETONE TRACE (NEGATIVE); URINE LEUK ESTERASE 3+ (NEGATIVE); URINE NITRITE NEGATIVE (NEGATIVE); URINE PROTEIN 1+ (NEGATIVE); URINE RBC 12 /hpf (0-4); URINE WBC 939 /hpf (0-5)
[2019-06-19] MEDS ORDERED: CEFTRIAXONE 1,000 MG in DEXTROSE 5%-WATER - 50 ML IVPB ONE (06:46)
[2019-06-19] MEDS ORDERED: CEFTRIAXONE 1 GM/50 ML BAG ONE (06:50)
--- NOTE | 2019-06-19 07:44 | PDOC ---
*Physical Exam - Vital Signs Last Vital Signs Temp Pulse Resp BP Pulse Ox 98.3 F 102 H 18 130/76 98 06/18/19 22:21 06/19/19 07:15 06/19/19 07:15 06/19/19 07:15 06/19/19 07:15 - Physical Exam Comments: 06/19/19 07:38 Patient signed out. Ms. Perez is a 63 y/o woman with PMH significant for DM, HTN, HLD, TIA in March, multiple chronic wounds from her DM, presented to the ER with complaints of acute onset nausea, multiple onset nbnb vomiting, and abdominal pain that started last night. She denies any fevers, chills, diarrhea, fatigue, weakness, chest pain, SOB, or prior abdominal surgeries. CTAP showed subcutaneous abdominal mass, adrenal nodule, and Gallbladder distension. #Plan - Will call to request admission ED Treatment Course - LABORATORY CBC & Chemistry Diagram: 06/19/19 01:35 06/19/19 01:35 - ADDITIONAL ORDERS Additional order review: Laboratory Results 06/19/19 06/19/19 06/19/19 02:05 01:35 01:35 Sodium Potassium Chloride Carbon Dioxide Anion Gap BUN Creatinine Est GFR (CKD-EPI)AfAm Est GFR (CKD-EPI)NonAf Random Glucose Lactic Acid 1.5 Calcium Total Bilirubin AST ALT Alkaline Phosphatase Creatine Kinase Troponin I Total Protein Albumin Lipase 82 Urine Color Yellow Urine Appearance Turbid Urine pH 6.0 Ur Specific [place] 1.019 Urine Protein 1+ H Urine Glucose (UA) 3+ H Urine Ketones Trace H Urine Blood 1+ H Urine Nitrite Negative Urine Bilirubin Negative Urine Urobilinogen 1.0 Ur Leukocyte Esterase 3+ H Urine WBC (Auto) 939 Urine RBC (Auto) 12 Urine Casts (Auto) 43 U Pathogenic Cast Auto None U Epithel Cells (Auto) 2.1 Urine Bacteria (Auto) 7395.4 06/19/19 01:35 Sodium 138 Potassium 4.4 Chloride 100 Carbon Dioxide 29 Anion Gap 9 BUN 20.1 H Creatinine 1.0 Est GFR (CKD-EPI)AfAm 68.95 Est GFR (CKD-EPI)NonAf 59.49 Random Glucose 253 H Lactic Acid Calcium 10.1 Total Bilirubin 1.0 AST 7 L ALT 15 Alkaline Phosphatase 87 Creatine Kinase 62 Troponin I < 0.02 Total Protein 8.8 H Albumin 4.5 Lipase Urine Color Urine Appearance Urine pH Ur Specific [place] Urine Protein Urine Glucose (UA) Urine Ketones Urine Blood Urine Nitrite Urine Bilirubin Urine Urobilinogen Ur Leukocyte Esterase Urine WBC (Auto) Urine RBC (Auto) Urine Casts (Auto) U Pathogenic Cast Auto U Epithel Cells (Auto) Urine Bacteria (Auto) 06/19/19 01:35 RBC 3.91 MCV 90.4 MCHC 33.8 RDW 14.2 MPV 10.0 D Neutrophils % 64.9 Lymphocytes % 28.0 D Monocytes % 5.3 Eosinophils % 1.0 Basophils % 0.8 - Medications Given in the ED: ED Medications Discontinued Medications Generic Name Dose Route Start Last Admin Trade Name Freq PRN Reason Stop Dose Admin Famotidine/Sodium Chloride 20 mg in 50 mls @ 100 mls/hr 06/19/19 00:25 01:30 Pepcid 20 Mg Premixed Ivpb - IVPB 06/19/19 00:54 100 mls/hr ONCE ONE Administration Ceftriaxone Sodium 1,000 mg/ 50 mls @ 100 mls/hr 06/19/19 06:46 06/19/19 07: 02 Dextrose IVPB 06/19/19 07:15 100 mls/hr ONCE ONE Administration Ondansetron HCl 4 mg 06/19/19 00:25 06/19/19 01:30 Zofran Injection IVPUSH 06/19/19 00:26 4 mg ONCE ONE Administration Sodium Chloride 1,000 ml 06/19/19 00:25 06/19/19 01:29 Normal Saline - IV 06/19/19 00:26 1,000 ml ONCE ONE Administration Discharge - Admission Yes - Follow up/Referral Referrals: Juliann Santana MD [Primary Care Provider] - - Patient Discharge Instructions - Post Discharge Activity
--- NOTE | 2019-06-19 10:04 | EKG ---
Test Reason : Blood Pressure : / mmHG Vent. Rate : 103 BPM Atrial Rate : 103 BPM P-R Int : 170 ms QRS Dur : 074 ms QT Int : 354 ms P-R-T Axes : 065 026 -09 degrees QTc Int : 463 ms SINUS TACHYCARDIA NONSPECIFIC T WAVE ABNORMALITY ABNORMAL ECG WHEN COMPARED WITH ECG OF 15-MAR-2019 22:13, NONSPECIFIC T WAVE ABNORMALITY, WORSE IN INFERIOR LEADS NONSPECIFIC T WAVE ABNORMALITY HAS REPLACED INVERTED T WAVES IN LATERAL LEADS QT HAS LENGTHENED Confirmed by MD LIZET, RHONDA ([id number]) on 06/19/2019 10:03:37 AM Referred By: Confirmed By:RHONDA HINDS MD
[2019-06-19] MEDS ORDERED: ONDANSETRON 4 MG/2 ML VIAL IVPUSH PRN (11:47)
--- NOTE | 2019-06-19 12:20 | HP ---
CHIEF COMPLAINT: abdominal pain PCP: Dr. Juliann Santana HISTORY OF PRESENT ILLNESS: Patient is a 63 y/o female with a history of DM, HTN, HLD, TIA, and osteomylitis who presents for abdominal pain. Patient reports this pain began two days ago. The last itme she ate was the night before and she does not remember what she ate. She describes the pain as cramping and non radiating. The pain is midepigastric. The patient has been feeling nauseous and vomiting, reports she vomited 3 times today and it was bile. Patient reports she has never had this pain in the past. Sanam has not been compliant with her medications, reporting she didn't feel like taking her insulin. Reports yesterday she was feeling light headed. Las bowel movement was two days ago and was normal. Patient reports she has burning sensation in her feet at night. Denies dysuria, hematuria, headache, chest pain, shortness of breath, diarrhea, or constipation. ER course was notable for: (1)zofran (2) (3) Recent Travel: denies PAST MEDICAL HISTORY: DM, HTN, HLD, TIA, and osteomylitis PAST SURGICAL HISTORY: foot debriedments Social History: Smoking: denies, never smoker Alcohol: denies Drugs: denies Allergies lactose Adverse Reaction (Verified 06/19/19 08:05) HOME MEDICATIONS: Home Medications Medication Instructions Recorded Aspirin [ASA -] 81 mg PO DAILY 08/01/17 Atorvastatin Ca [Lipitor] 40 mg PO HS #30 tablet 08/02/17 Lisinopril [Prinivil] 20 mg PO DAILY 03/04/19 Insulin Glargine,Hum.rec.anlog 5 units SQ HS #1 pen 03/12/19 [Lantus Solostar PEN -] Ferrous Sulfate 325 mg PO BID #60 tablet 03/19/19 Insulin Detemir [Levemir Flextouch] 5 unit SQ DAILY #1 insuln.pen 03/20/19 REVIEW OF SYSTEMS CONSTITUTIONAL: Absent: fever, chills, diaphoresis, generalized weakness, malaise, loss of appetite, weight change HEENT: Absent: rhinorrhea, nasal congestion, throat pain, throat swelling, difficulty swallowing, mouth swelling, ear pain, eye pain, visual changes CARDIOVASCULAR: Absent: chest pain, syncope, palpitations, irregular heart rate, lightheadedness , peripheral edema RESPIRATORY: Absent: cough, shortness of breath, dyspnea with exertion, orthopnea, wheezing, stridor, hemoptysis GASTROINTESTINAL:abdominal pain, nausea, vomiting, Absent: abdominal distension, diarrhea, constipation, melena, hematochezia GENITOURINARY: Absent: dysuria, frequency, urgency, hesitancy, hematuria, flank pain, genital pain MUSCULOSKELETAL: Absent: myalgia, arthralgia, joint swelling, back pain, neck pain SKIN: Absent: rash, itching, pallor HEMATOLOGIC/IMMUNOLOGIC: Absent: easy bleeding, easy bruising, lymphadenopathy, frequent infections ENDOCRINE: Absent: unexplained weight gain, unexplained weight loss, heat intolerance, cold intolerance NEUROLOGIC: Absent: headache, focal weakness or paresthesias, dizziness, unsteady gait, seizure, mental status changes, bladder or bowel incontinence PSYCHIATRIC: Absent: anxiety, depression, suicidal or homicidal ideation, hallucinations. PHYSICAL EXAMINATION Vital Signs - 24 hr 06/18/19 06/19/19 06/19/19 22:21 07:15 08:00 Temperature 98.3 F Pulse Rate 109 H Pulse Rate [ 102 H Left] Respiratory 19 18 Rate Blood Pressure 128/74 Blood Pressure 130/76 [Left Arm] O2 Sat by Pulse 100 98 97 Oximetry (%) GENERAL: Awake, alert, and fully oriented, in no acute distress. HEAD: Normal with no signs of trauma. EYES: Pupils equal, round and reactive to light, extraocular movements intact EARS, NOSE, THROAT: Poor dentition, Moist mucous membranes. LUNGS: Breath sounds equal, clear to auscultation bilaterally. No wheezes, and no crackles. No accessory muscle use. HEART: Regular rate and rhythm, normal S1 and S2 without murmur, rub or gallop. ABDOMEN: hypoactive bowel sounds, tenderness to deep palpation of midepigastric region and R upper and lower quadrant MUSCULOSKELETAL: No CVA tenderness. LOWER EXTREMITIES: 2+ pulses, warm, well-perfused. No calf tenderness. No peripheral edema. thin legs, no ulcers noted on the feet, sensation intact b/l NEUROLOGICAL: Cranial nerves II-XII intact. PSYCHIATRIC: Cooperative. Good eye contact. Appropriate mood and affect. SKIN: large 5x5 cm black and blue lumb R lower back above gluteal tissue CBC, BMP 06/19/19 01:35 06/19/19 01:35 ASSESSMENT/PLAN: Patient is a 63 y/o female with a history of DM, HTN, HLD, TIA, and osteomylitis who presents for abdominal pain. #abdominal pain, nausea, vomiting - 2/2 to gastroparesis vs viral vs cholelithiasis vs constipation vs UTI - supportive care with fluids and compazine, QTC 463 - miralax for constipation - ABD/Pelvis CT: multiple small gallstones layering gallbladder withou evidence of cholecystits, mild fatty infiltration of liver, 4mm nonobstruction left renal lower pole stone, left adrenal nodule, no SBO, mass like density in R lower back cannot exclude a cyst - f/u US to r/o cholecystis #DM - BGM ACHS - SS - last A1c 03/02/19: 11.4 - resume levemir 5 once patient begins eating again #UTI - UA: leukocyte esterase 3+, WBC 939 - Ceftriaxone given in ED, will continue tomorrow - f/u urine cx - asymptomatic #HTN - continue lisinorpil 20 daily #hx TIA - hold asa for now and continue statin #R lumbar enhancing mass - 40 year hx of this mass, has grown in size - Discussed with Dr Doty, will have biopsy of mass today and f/u results as an outpatient DVT - Lovenox sq daily FEN - NS @ 100 Dispo: monitor on med surg Visit type - Emergency Visit Emergency Visit: Yes ED Registration Date: 06/19/19 Care time: The patient presented to the Emergency Department on the above date and was hospitalized for further evaluation of their emergent condition. - New Patient This patient is new to me today: Yes Date on this admission: 06/22/19 - Critical Care Critical Care patient: No ATTENDING PHYSICIAN STATEMENT I saw and evaluated the patient. I reviewed the resident's note and discussed the case with the resident. I agree with the resident's findings and plan as documented. SUBJECTIVE: OBJECTIVE: ASSESSMENT AND PLAN:
[2019-06-19] MEDS ORDERED: PROCHLORPERAZINE MALEATE 5 MG TABLET PO PRN (13:02)
[2019-06-19] MEDS ORDERED: SODIUM PHOSPHATE/NA BIPHOS 133 ML ENEMA PR ONE (13:05)
[2019-06-19] MEDS ORDERED: DOCUSATE SODIUM 100 MG CAPSULE (FP) PO ONE (13:25)
[2019-06-19] MEDS: POLYETHYLENE GLYCOL 3350 119 GM BTL PO SCH (13:35)
[2019-06-19] MEDS: SODIUM CHLORIDE 1,000 ML IV SCH (13:36)
[2019-06-19] MEDS: DOCUSATE SODIUM 100 MG CAPSULE (FP) PO SCH (13:36)
[2019-06-19 16:53] VITALS: BMI 19.8
[2019-06-19] MEDS: INSULIN SLIDING SCALE (NOVOLOG) 1 VIAL SQ SCH ×2 (17:35→21:18)
--- NOTE | 2019-06-19 18:33 | PN ---
Teaching Attending Note Name of Resident: Vianey Gonzalez ATTENDING PHYSICIAN STATEMENT I saw and evaluated the patient. I reviewed the resident's note and discussed the case with the resident. I agree with the resident's findings and plan as documented. SUBJECTIVE: CC: abd pain, N/V. HPI: 63 y/o lady with h/o DM, HTN, HLD, TIA, osteomylitis, and medication non compliance who presented with Abd pain and N/V x 2 days yesterday she started with epigastric pain with N/V. was not able to tolerate diet. She denies fever or chills. denies dysuria, denies BREWER , denies diarrhea. last BM was yesterday with small hard balls of stool. reports stopping all her medications about 2 months ago. she has poor f/u. HAs a mass in R flank , was told it had to be removed but she did not follow. PCP is Dr. Santana. IN ER , she continued to vomit , non bloody non bilious emesis, witnessed by Dr. Gonzalez. Now she is on floor, she feels much better, no N/V since moved form ER. CT of Abd pelvis , reviewed. sub-cutaneous mass in R lank, adrenal nodules, renal stones, and fecal impaction EKG : sinus rhythm, TWI in AVF, QTC 462, and Nl axis OBJECTIVE: NAD,awake, alert, oriented x 3 HEENT: poor dentition. MMM, no LAP in neck or supracalvicular area. no facial droop. L cataract with deformed L pupil. CV: RRR, no MRG Lungs: CTAB Abd: soft, NT,ND, NL BS a soft tissue mass which is soft and not tender noted in lower R flank and upper buttock area. no skin changes Ext : No edema or erythema . No fungal infection among toes. Neuro : EOMI, round R pupil, deformed L pupil, no facial droop, tongue at mid line. strength 5/5 in upper and lwoer extremities proximally and distally. sensation to light touch NL. reflexes 2+ biceps and 2+ knee jerk b/l ASSESSMENT AND PLAN: 63 y/o lady with h/o DM, HTN, HLD, TIA, osteomylitis, and medication non compliance who presented with Abd pain and N/V x 2 days. she was found to have UTI 1- Abd pain , N/V : could be due to gastritis, gastroperesis, constipation , or UTI. doubt biliary colic or cholecystitis - start PPI - check US of RUQ. - treat UTI - IVF - diet as tolerated - compazine for nausea given QTC - bowel regimen 2- UTI: - ceftriaxone - follow up urine cx 3- R lower flank , upper buttock area mass: -case d/w IR and bx was done with no complications - results to be followed. 4- B/L Adrenal nodules: patient was advised to follow as out pt , for more imaging and hormonal testing. she understands the need to 5- DM; poorly controlled . last A1c 11 in 03/07. - start SSI - if po intake improves, can resume levemir she was supposed to be on - consult dietitian 6- HTN: resume lisinopril . 7- h/o TIA : resume asa in am DVT PX: start lovenox in am
[2019-06-19] MEDS ORDERED: INSULIN (NOVOLOG) ASPART 100 UNITS/ML 10ML VIAL ONE (20:59)
[2019-06-19] MEDS: ATORVASTATIN CA 40 MG TABLET (FP) PO SCH (21:18)
[2019-06-20] MEDS: SODIUM CHLORIDE 1,000 ML IV SCH ×2 (02:25→13:12)
[2019-06-20] MEDS: ACETAMINOPHEN 325 MG TABLET (FP) PO PRN ×2 (02:54→13:10)
[2019-06-20] MEDS: INSULIN SLIDING SCALE (NOVOLOG) 1 VIAL SQ SCH ×4 (06:05→22:05)
[2019-06-20 08:14] LABS: BASO % 0.8 % (0-2.0); HEMOGLOBIN 11.9 GM/dL (10.7-15.3); LYMPH % 14.4 % (8-40); MCH 31.1 pg (25.7-33.7); MCHC 34.1 g/dl (32.0-36.0); MEAN CELL VOLUME 91.1 fl (80-96); MEAN PLT VOLUME 9.9 fl (7.5-11.1); MONO % 4.4 % (3.8-10.2); NEUT % 80.4 % (42.8-82.8); PLATELET COUNT 249 K/MM3 (134-434); RBC 3.84 M/mm3 (3.60-5.2); RDW 14.2 % (11.6-15.6); WHITE BLOOD COUNT 8.6 K/mm3 (4.0-10.0)
[2019-06-20 08:39] LABS: ALBUMIN 4.4 g/dl (3.4-5.0); BILIRUBIN,TOTAL 1.4 mg/dL (0.2-1); BLOOD UREA NITROGEN 19.5 mg/dL (7-18); CALCIUM 9.9 mg/dL (8.5-10.1); CREATININE 0.9 mg/dL (0.55-1.3); MAGNESIUM 2.2 mg/dL (1.8-2.4); PHOSPHOROUS 3.6 mg/dL (2.5-4.9); POTASSIUM 3.7 mmol/L (3.5-5.1); TOT PROT 8.5 g/dl (6.4-8.2)
[2019-06-20] MEDS ORDERED: DEXTROSE 5%-WATER - 50 ML IVPB ONE (09:18)
[2019-06-20] MEDS ORDERED: cefTRIAXone SODIUM 1 GM VIAL ONE (09:18)
[2019-06-20] MEDS: LISINOPRIL 20 MG TABLET (FP) PO SCH (09:29)
[2019-06-20] MEDS: ASPIRIN 81 MG CHEWABLE TABLETS PO SCH (09:29)
[2019-06-20] MEDS: DOCUSATE SODIUM 100 MG CAPSULE (FP) PO SCH (09:29)
[2019-06-20] MEDS: ENOXAPARIN NA (PORCINE) 40 MG/0.4 ML DISP.SYRIN SQ SCH (09:30)
[2019-06-20] MEDS: POLYETHYLENE GLYCOL 3350 119 GM BTL PO SCH (09:30)
[2019-06-20] MEDS: CEFTRIAXONE 1 GM in DEXTROSE 5%-WATER - 50 ML IVPB SCH (09:31)
[2019-06-20] MEDS ORDERED: ASPIRIN 81 MG CHEWABLE TABLETS PO SCH (10:00)
[2019-06-20 13:00] LABS: BILIRUBIN,DIRECT 0.2 mg/dL (0.0-0.2)
[2019-06-20] MEDS ORDERED: PT OWN MED DRAWER 7, Y5N ONE (13:06)
--- NOTE | 2019-06-20 13:32 | PN ---
Teaching Attending Note Name of Resident: Sindi Mcmahon ATTENDING PHYSICIAN STATEMENT I saw and evaluated the patient. I reviewed the resident's note and discussed the case with the resident. I agree with the resident's findings and plan as documented. SUBJECTIVE: vomited 3 times today. has abd pain. no BM . no dysuria , no BREWER , no cough. daughter mentioned that patient had rectal bleed in past, but patietn denies. she had no colonoscopy or EGD in past . No GI specialist follow up OBJECTIVE: NAD,awake, alert, oriented x 3 HEENT: poor dentition. MMM, L cataract with deformed L pupil. CV: RRR, no MRG Lungs: CTAB Abd: soft, TTp in all quadrants especially in suprapubic area. no guarding a non tender soft tissue mass in lower R flank and upper buttock area. Ext : No edema or erythema . Rectal, done by Dr. Mcmahon under my supervision: no external or internal hemorrhoids, no masses . empty rectal vault. minimal amount of stool on examiner finger which is negative for OB ASSESSMENT AND PLAN: 63 y/o lady with h/o DM, HTN, HLD, TIA, osteomylitis, and medication non compliance who presented with Abd pain and N/V x 2 days. she was found to have UTI 1- Abd pain , N/V : could be due to gastritis, pUD, gastroperesis ( poorly controlled Dm ), constipation , or due to the UTI. OB negative on rectal exam. - cont PPI - Us reviewed. - order gastric emptying study - avoid motility agents due to prolonged Qtc - cont IVF - change diet to clears - compazine for nausea given QTC - Bowel regimen. give a suppository today .cont rest - consult GI . ? EGD if no improvement 2- UTI: - ceftriaxone - Urine cx 3- R lower flank , upper buttock area mass: -Bx done yesterday. - results to be followed. 4- B/L Adrenal nodules: patient was advised to follow as out pt 5- DM; poorly controlled last A1c 11 in 03/07. - cont SSI -once po intake improves, can add levemir - consult dietitian 6- HTN: cont lisinopril . 7- h/o TIA : cont ASa DVT PX:Lovenox HLOC ASSESSMENT AND PLAN:
[2019-06-20] MEDS ORDERED: BISACODYL 10 MG SUPP.RECT PR ONE (13:39)
--- NOTE | 2019-06-20 14:53 | CON.GI ---
Consult Consult Specialty:: Gastroenterology Reason for Consultation:: Vomiting - History of Present Illness Chief Complaint: Vomiting. History of Present Illness: Patient with vomiting for last 48 hours. Associated with nausea, loss of appetite. No abdominal pain. No relief of nausea with emesis. No fevers, sweats, chills. No diarrhea. Last BM on Tuesday (approximately 72 hours ago). [place] emesis. No blood. - History Source History Provided By: Patient Limitations to Obtaining History: No Limitations - Past Medical History [employer]: Yes: Other (chronic intermittent lightheadedness (x 1 year)) Cardio/Vascular: Yes: CAD, HTN, Hyperlipdemia, Other (angina) Pulmonary: No: Asthma, Bronchitis, Cancer, COPD, O2 Dependent, Pneumonia, Previously Intubated, Pulmonary Embolus, Pulmonary Fibrosis, Sleep Apnea, Other Psych: Yes: Depression ENT: Yes: Other (blind left eye) Endocrine: Yes: Diabetes Mellitus - Past Surgical History Past Surgical History: Yes: None - Alcohol/Substance Use Hx Alcohol Use: No - Smoking History Smoking history: Never smoked Have you smoked in the past 12 months: No Aproximately how many cigarettes per day: 0 Home Medications - Allergies Allergies/Adverse Reactions: Allergies Allergy/AdvReac Type Severity Reaction Status Date / Time lactose AdvReac Verified 06/19/19 08:05 - Home Medications Home Medications: Ambulatory Orders Aspirin [ASA -] 81 mg PO DAILY 08/01/17 Atorvastatin Ca [Lipitor] 40 mg PO HS #30 tablet 08/02/17 Lisinopril [Prinivil] 20 mg PO DAILY 03/04/19 Insulin Glargine,Hum.rec.anlog [Lantus Solostar PEN -] 5 units SQ HS #1 pen Review of Systems - Review of Systems Constitutional: denies: Chills, Fever, Night Sweats, Unintentional Wgt. Loss Gastrointestinal: reports: Nausea, Vomiting. denies: Abdominal Pain, Constipation, Diarrhea, Dysphagia, Melena, Rectal Bleeding, Vomiting Blood Physical Exam-GI Vital Signs: Vital Signs Temperature 98.5 F 06/20/19 04:00 Pulse Rate 104 H 06/20/19 04:00 Respiratory Rate 18 06/20/19 04:00 Blood Pressure 150/87 06/20/19 04:00 O2 Sat by Pulse Oximetry (%) 100 06/19/19 21:00 Constitutional: Yes: Other (Slightly uncomfortable. Not interested in providing history.) Cardiovascular: Yes: Regular Rate and Rhythm Respiratory: Yes: CTA Bilaterally Gastrointestinal Inspection: Yes: WNL ...Auscultate: Yes: Normoactive Bowel Sounds ...Palpate: Yes: Soft. No: Guarding, Hepatomegaly, Mass, Tenderness Labs: CBC, BMP 06/20/19 07:00 06/20/19 07:00 Imaging - Results Cat Scan: Report Reviewed (No acute GI pathology noted. Gall stones without pericholecystic fluid or GB wall thickening noted.) Problem List - Problems (1) Vomiting Assessment/Plan: Uncertain etiology to vomiting, but in diabetic patient multiple etiologies possible including gastroenteritis, secondary effect of infection, gastreoparesis, accelerated gastric emptying, neurologic disorder, and others. Suggest continue with acid suppression and as needed anti-emetics for now. Consider EGD if no improvement once blood sugar well controlled (elevated glucose at present). Consider neurologoic evaluation of above unrealing and unremitting. Code(s): R11.10 - VOMITING, UNSPECIFIED
--- NOTE | 2019-06-20 15:01 | PN ---
Physical Exam: SUBJECTIVE: Patient seen and examined at the bedside. Per the nurse who obtained further information from the patient's daughter, the patient has a past history of lower GI bleed and bright red blood per rectum, the patient denies this. Also per the nurse the patient has not been eating and vomited 3 times overnight. This morning the patient is sleepy and only minimally responsive to questioning. OBJECTIVE: Vital Signs Period Temp Pulse Resp BP Sys/Hidalgo Pulse Ox Last 24 Hr 98.3 F-98.5 F 68-107 18-18 116-150/67-87 100-100 GENERAL: Awake, sleepy, and fully oriented, in no acute distress. HEAD: Normal with no signs of trauma. EYES: Pupils equal, round and reactive to light, extraocular movements intact EARS, NOSE, THROAT: Poor dentition, Moist mucous membranes. LUNGS: Breath sounds equal, clear to auscultation bilaterally. No wheezes, and no crackles. No accessory muscle use. HEART: Regular rate and rhythm, normal S1 and S2 without murmur, rub or gallop. ABDOMEN: hypoactive bowel sounds, tenderness to deep palpation of suprapubic area RECTAL: no masses felt in rectal vault, good rectal tone, FOBT negative MUSCULOSKELETAL: No CVA tenderness. LOWER EXTREMITIES: 2+ pulses, warm, well-perfused. No calf tenderness. No peripheral edema. thin legs, no ulcers noted on the feet, sensation intact b/l NEUROLOGICAL: Cranial nerves II-XII intact. PSYCHIATRIC: Cooperative. Good eye contact. Appropriate mood and affect. SKIN: large mass at R lower back above gluteal tissue, firm to palpation and immobile. Laboratory Results - last 24 hr 06/19/19 06/19/19 06/20/19 17:34 21:14 05:44 WBC RBC Hgb Hct MCV MCH MCHC RDW Plt Count MPV Absolute Neuts (auto) Neutrophils % Lymphocytes % Monocytes % Eosinophils % Basophils % Nucleated RBC % Sodium Potassium Chloride Carbon Dioxide Anion Gap BUN Creatinine Est GFR (CKD-EPI)AfAm Est GFR (CKD-EPI)NonAf POC Glucometer 276 105 227 Random Glucose Calcium Phosphorus Magnesium Total Bilirubin Direct Bilirubin AST ALT Alkaline Phosphatase Total Protein Albumin 06/20/19 06/20/19 06/20/19 07:00 07:00 12:33 WBC 8.6 RBC 3.84 Hgb 11.9 Hct 35.0 MCV 91.1 MCH 31.1 MCHC 34.1 RDW 14.2 Plt Count 249 MPV 9.9 Absolute Neuts (auto) 6.9 Neutrophils % 80.4 D Lymphocytes % 14.4 D Monocytes % 4.4 Eosinophils % 0.0 D Basophils % 0.8 Nucleated RBC % 0 Sodium 134 L Potassium 3.7 Chloride 98 Carbon Dioxide 27 Anion Gap 9 BUN 19.5 H Creatinine 0.9 Est GFR (CKD-EPI)AfAm 78.32 Est GFR (CKD-EPI)NonAf 67.57 POC Glucometer 245 Random Glucose 213 H Calcium 9.9 Phosphorus 3.6 Magnesium 2.2 Total Bilirubin 1.4 H Direct Bilirubin 0.2 AST 9 L ALT 14 Alkaline Phosphatase 77 Total Protein 8.5 H Albumin 4.4 Active Medications Generic Name Dose Route Start Last Admin Trade Name Freq PRN Reason Stop Dose Admin Acetaminophen 650 mg 06/19/19 11:47 06/20/19 13:10 Tylenol - PO 650 mg Q4H PRN Administration PAIN OR FEVER Aspirin 81 mg 06/20/19 10:00 06/20/19 09:29 Asa - PO 81 mg DAILY DMITRY Administration Atorvastatin Calcium 40 mg 06/19/19 22:00 06/19/19 21:18 Lipitor - PO 40 mg HS DMITRY Administration Docusate Sodium 100 mg 06/19/19 12:30 06/20/19 09:29 Colace - PO 100 mg DAILY DMITRY Administration Enoxaparin Sodium 40 mg 06/20/19 10:00 06/20/19 09:30 Lovenox - SQ 40 mg DAILY DMITRY Administration Sodium Chloride 1,000 mls @ 100 mls/hr 06/19/19 12:00 06/20/19 13:12 Normal Saline - IV 100 mls/hr ASDIR DMITRY Administration Ceftriaxone Sodium 1 gm/ 50 mls @ 100 mls/hr 06/20/19 10:00 06/20/19 09:31 Dextrose IVPB 100 mls/hr DAILY DMITRY Administration Protocol Insulin Aspart 1 vial 06/19/19 16:30 06/20/19 12:34 Novolog Vial Sliding Scale - SQ 4 units ACHS DMITRY Administration Protocol Lisinopril 20 mg 06/20/19 10:00 06/20/19 09:29 Prinivil PO 20 mg DAILY DMITRY Administration Pantoprazole Sodium 40 mg 06/20/19 14:00 Protonix Iv IVPUSH DAILY DMITRY Polyethylene Glycol 17 gm 06/19/19 12:00 06/20/19 09:30 Miralax (For Daily Use) - PO 17 gm DAILY DMITRY Administration Prochlorperazine Maleate 10 mg 06/19/19 13:02 Compazine - PO Q4H PRN NAUSEA AND/OR VOMITING Imaging: - ABD/Pelvis CT: multiple small gallstones layering gallbladder withou evidence of cholecystits, mild fatty infiltration of liver, 4mm nonobstruction left renal lower pole stone, left adrenal nodule, no SBO, mass like density in R lower back cannot exclude a cyst - Abd u/s- cholelithiasis without cholecystitis ASSESSMENT/PLAN: Patient is a 63 y/o female with a history of DM, HTN, HLD, TIA, and osteomylitis who presents for abdominal pain. #abdominal pain, nausea, vomiting - 2/2 to gastroparesis vs viral vs cholelithiasis vs constipation vs UTI - FOBT negative on rectal exam - Gastric emptying study - supportive care with fluids and compazine, QTC 463 - avoid motility agents as patient has prolonged QTC - clear liquid diet - bowel regimen for constipation - GI consulted, appreciate recommendations - continuing supportive care until blood sugars better controlled, if vomiting is unremitting consider EGD and neurologic work up of symptoms # Mass R lower flank - f/u biopsy results #DM - BGM ACHS - SS - last A1c 03/02/19: 11.4 - resume levemir 5 once patient begins eating again #UTI - UA: leukocyte esterase 3+, WBC 939 - Continuing Ceftriaxone - f/u urine cx - asymptomatic #HTN - continue lisinorpil 20 daily #hx TIA - continue ASA # B/L Adrenal nodules - patient was advised to follow as out pt DVT - Lovenox sq daily FEN - NS @ 100 Visit type - Emergency Visit Emergency Visit: Yes ED Registration Date: 06/19/19 Care time: The patient presented to the Emergency Department on the above date and was hospitalized for further evaluation of their emergent condition. - New Patient This patient is new to me today: Yes Date on this admission: 06/21/19 - Critical Care Critical Care patient: No - Discharge Referral Referred to [facility] Med P.C.: No ATTENDING PHYSICIAN STATEMENT I saw and evaluated the patient. I reviewed the resident's note and discussed the case with the resident. I agree with the resident's findings and plan as documented. SUBJECTIVE: OBJECTIVE: ASSESSMENT AND PLAN:
[2019-06-20] MEDS: PANTOPRAZOLE SODIUM 40 MG VIAL IVPUSH SCH (15:45)
--- NOTE | 2019-06-20 18:22 | PATH ---
Surgical Pathology Report Patient Name: YASSINE BATISTA Med. Rec. #: [id number] /Age/Gender: 1955 (Age: 63) / F Account: [id number] Location: EMERGENCY ROOM Taken: 06/19/2019 Received: 06/19/2019 Reported: 06/20/2019 Physicians: Slim Avitia M.D. Specimen(s) Received BACK MASS Clinical History Right back mass Final Diagnosis BACK MASS, CORE BIOPSY: MINUTE FRAGMENT OF SKIN AND SCANT KERATINOUS MATERIAL/DEBRIS, SEE COMMENT. Comment: Findings may represent sampling of epidermal inclusion cyst in a concordant clinical setting. If there is persistent clinical concern for neoplasm, suggest repeat sampling. Electronically Signed Vianey Olivares M.D. Gross Description Received in formalin, labeled "back mass" are multiple white -rene, irregular portions of soft tissue measuring <0.1 and 0.1 cm. in greatest dimension. The specimen is filtered and entirely submitted in toto in one cassette. MLSZ/06/19/2019 sanml/06/19/2019
[2019-06-20] MEDS: ATORVASTATIN CA 40 MG TABLET (FP) PO SCH (22:03)
[2019-06-20] MEDS: INSULIN (LEVEMIR) 100 UNITS/ML UNITS SQ SCH (22:04)
[2019-06-21] MEDS: INSULIN SLIDING SCALE (NOVOLOG) 1 VIAL SQ SCH ×4 (07:00→22:38)
[2019-06-21 07:39] LABS: BASO % 0.6 % (0-2.0); EOS % 0.1 % (0-4.5); HEMATOCRIT 34.8 % (32.4-45.2); LYMPH % 14.3 % (8-40); MCH 30.9 pg (25.7-33.7); MCHC 34.5 g/dl (32.0-36.0); MEAN CELL VOLUME 89.7 fl (80-96); MEAN PLT VOLUME 9.5 fl (7.5-11.1); MONO % 5.5 % (3.8-10.2); NEUT % 79.5 % (42.8-82.8); PLATELET COUNT 256 K/MM3 (134-434); RBC 3.88 M/mm3 (3.60-5.2); RDW 14.3 % (11.6-15.6); WHITE BLOOD COUNT 12.2 K/mm3 (4.0-10.0)
[2019-06-21 08:20] LABS: ALBUMIN 4.1 g/dl (3.4-5.0); BILIRUBIN,DIRECT 0.2 mg/dL (0.0-0.2); BILIRUBIN,TOTAL 1.7 mg/dL (0.2-1); BLOOD UREA NITROGEN 16.1 mg/dL (7-18); CALCIUM 9.5 mg/dL (8.5-10.1); CREATININE 0.8 mg/dL (0.55-1.3); TOT PROT 7.9 g/dl (6.4-8.2)
--- NOTE | 2019-06-21 08:46 | PN ---
Teaching Attending Note Name of Resident: Sindi Mcmahon ATTENDING PHYSICIAN STATEMENT I saw and evaluated the patient. I reviewed the resident's note and discussed the case with the resident. I agree with the resident's findings and plan as documented. SUBJECTIVE: No fever or chills. cont to have mid abd pain. No vomiting this am . No BM after enema OBJECTIVE: NAD,awake HEENT: poor dentition. MMM. CV: RRR, no MRG Lungs: CTAB Abd: soft, TTp in periumbilical area. no guarding a non tender soft tissue mass in lower R flank and upper buttock area. Ext : No edema or erythema . ASSESSMENT AND PLAN: 63 y/o lady with h/o DM, HTN, HLD, TIA, osteomylitis, and medication non compliance who presented with Abd pain and N/V x 2 days. she was found to have UTI 1- Abd pain, N/V: could be due to gastritis, pUD, gastroperesis, constipation , or due to the UTI. - cont PPI - Gastric emptying study was not approved by radiologist - avoid motility agents due to prolonged Qtc - cont IVF - Cont clears. advance as tolerated. - compazine for nausea given QTC - will give lactulose x 1 today - Will d/w GI EGD as sugar control is unlikely to improve gastric motility immediately. 2- UTI: - ceftriaxone - Urine cx pending ( taken after Abx administration ) 3- R lower flank , upper buttock area mass: -Bx results reviewed: epidermal inclusion cyst. f/u as out pt. - will refer to general Sx after dc 4- B/L Adrenal nodules: patient was advised to follow as out pt 5- DM; poorly controlled last A1c 11 in 03/07. - cont SSI -cont levemir 5 units q HS - dietitian education 6- HTN: cont lisinopril . BP might be elevated due to pain. can always adjust meds if needed 7- h/o TIA : cont ASa DVT PX:Lovenox HLOC ASSESSMENT AND PLAN:
[2019-06-21] MEDS ORDERED: cefTRIAXone SODIUM 1 GM VIAL ONE (10:36)
[2019-06-21] MEDS ORDERED: DEXTROSE 5%-WATER - 50 ML IVPB ONE (10:36)
[2019-06-21] MEDS ORDERED: PT OWN MED DRAWER 7, Y5N ONE (10:36)
[2019-06-21] MEDS: SODIUM CHLORIDE 1,000 ML IV SCH ×3 (10:53→22:37)
[2019-06-21] MEDS: CEFTRIAXONE 1 GM in DEXTROSE 5%-WATER - 50 ML IVPB SCH (10:58)
[2019-06-21] MEDS: ASPIRIN 81 MG CHEWABLE TABLETS PO SCH (10:59)
[2019-06-21] MEDS: LISINOPRIL 20 MG TABLET (FP) PO SCH (10:59)
[2019-06-21] MEDS: PANTOPRAZOLE SODIUM 40 MG VIAL IVPUSH SCH (11:00)
[2019-06-21] MEDS: DOCUSATE SODIUM 100 MG CAPSULE (FP) PO SCH (11:00)
[2019-06-21] MEDS: ENOXAPARIN NA (PORCINE) 40 MG/0.4 ML DISP.SYRIN SQ SCH (11:00)
[2019-06-21] MEDS: POLYETHYLENE GLYCOL 3350 119 GM BTL PO SCH (11:04)
--- NOTE | 2019-06-21 11:14 | PN ---
Physical Exam: SUBJECTIVE: Patient seen and examined at the bedside, there were no acute events overnight. Patient reports she still has not had a BM, no vomiting this morning. OBJECTIVE: Vital Signs Period Temp Pulse Resp BP Sys/Hidalgo Pulse Ox Last 24 Hr 97.8 F-98.7 F 103-107 18-18 143-162/96-99 100 GENERAL: Awake and fully oriented, in no acute distress. HEAD: Normal with no signs of trauma. EYES: Pupils equal, round and reactive to light, extraocular movements intact EARS, NOSE, THROAT: Poor dentition, Moist mucous membranes. LUNGS: Breath sounds equal, clear to auscultation bilaterally. No wheezes, and no crackles. No accessory muscle use. HEART: Regular rate and rhythm, normal S1 and S2 without murmur, rub or gallop. ABDOMEN: hypoactive bowel sounds, tenderness to deep palpation of suprapubic area RECTAL: no masses felt in rectal vault, good rectal tone, FOBT negative MUSCULOSKELETAL: No CVA tenderness. LOWER EXTREMITIES: 2+ pulses, warm, well-perfused. No calf tenderness. No peripheral edema. thin legs, no ulcers noted on the feet, sensation intact b/l NEUROLOGICAL: Cranial nerves II-XII intact. PSYCHIATRIC: Cooperative. Good eye contact. Appropriate mood and affect. SKIN: large mass at R lower back above gluteal tissue, firm to palpation and immobile. Laboratory Results - last 24 hr 06/20/19 06/20/19 06/20/19 07:00 12:33 17:50 WBC RBC Hgb Hct MCV MCH MCHC RDW Plt Count MPV Absolute Neuts (auto) Neutrophils % Lymphocytes % Monocytes % Eosinophils % Basophils % Nucleated RBC % Sodium 134 L Potassium 3.7 Chloride 98 Carbon Dioxide 27 Anion Gap 9 BUN 19.5 H Creatinine 0.9 Est GFR (CKD-EPI)AfAm 78.32 Est GFR (CKD-EPI)NonAf 67.57 POC Glucometer 245 156 Random Glucose 213 H Calcium 9.9 Phosphorus 3.6 Magnesium 2.2 Total Bilirubin 1.4 H Direct Bilirubin 0.2 AST 9 L ALT 14 Alkaline Phosphatase 77 Total Protein 8.5 H Albumin 4.4 06/20/19 06/21/19 06/21/19 22:02 06:58 07:17 WBC 12.2 H RBC 3.88 Hgb 12.0 Hct 34.8 MCV 89.7 MCH 30.9 MCHC 34.5 RDW 14.3 Plt Count 256 MPV 9.5 Absolute Neuts (auto) 9.7 H Neutrophils % 79.5 Lymphocytes % 14.3 Monocytes % 5.5 Eosinophils % 0.1 D Basophils % 0.6 Nucleated RBC % 0 Sodium Potassium Chloride Carbon Dioxide Anion Gap BUN Creatinine Est GFR (CKD-EPI)AfAm Est GFR (CKD-EPI)NonAf POC Glucometer 133 155 Random Glucose Calcium Phosphorus Magnesium Total Bilirubin Direct Bilirubin AST ALT Alkaline Phosphatase Total Protein Albumin 06/21/19 07:17 WBC RBC Hgb Hct MCV MCH MCHC RDW Plt Count MPV Absolute Neuts (auto) Neutrophils % Lymphocytes % Monocytes % Eosinophils % Basophils % Nucleated RBC % Sodium 135 L Potassium 4.0 Chloride 100 Carbon Dioxide 27 Anion Gap 9 BUN 16.1 Creatinine 0.8 Est GFR (CKD-EPI)AfAm 90.30 Est GFR (CKD-EPI)NonAf 77.91 POC Glucometer Random Glucose 145 H Calcium 9.5 Phosphorus Magnesium Total Bilirubin 1.7 H Direct Bilirubin 0.2 AST 11 L ALT 13 Alkaline Phosphatase 76 Total Protein 7.9 Albumin 4.1 Active Medications Generic Name Dose Route Start Last Admin Trade Name Freq PRN Reason Stop Dose Admin Acetaminophen 650 mg 06/19/19 11:47 06/20/19 13:10 Tylenol - PO 650 mg Q4H PRN Administration PAIN OR FEVER Aspirin 81 mg 06/20/19 10:00 06/21/19 10:59 Asa - PO 81 mg DAILY DMITRY Administration Atorvastatin Calcium 40 mg 06/19/19 22:00 06/20/19 22:03 Lipitor - PO 40 mg HS DMITRY Administration Docusate Sodium 100 mg 06/19/19 12:30 06/21/19 11:00 Colace - PO 100 mg DAILY DMITRY Administration Enoxaparin Sodium 40 mg 06/20/19 10:00 06/21/19 11:00 Lovenox - SQ 40 mg DAILY DMITRY Administration Sodium Chloride 1,000 mls @ 100 mls/hr 06/19/19 12:00 06/21/19 10:53 Normal Saline - IV 100 mls/hr ASDIR DMITRY Administration Ceftriaxone Sodium 1 gm/ 50 mls @ 100 mls/hr 06/20/19 10:00 06/21/19 10:58 Dextrose IVPB 100 mls/hr DAILY DMITRY Administration Protocol Insulin Aspart 1 vial 06/19/19 16:30 06/21/19 07:00 Novolog Vial Sliding Scale - SQ 2 units ACHS DMITRY Administration Protocol Insulin Detemir 5 units 06/20/19 22:00 06/20/19 22:04 Levemir Vial SQ 5 units HS DMITRY Administration Lactulose 20 gm 06/21/19 11:12 Cephulac (Oral Use) PO 06/21/19 11:13 ONCE ONE Lisinopril 20 mg 06/20/19 10:00 06/21/19 10:59 Prinivil PO 20 mg DAILY DMITRY Administration Pantoprazole Sodium 40 mg 06/20/19 14:00 06/21/19 11:00 Protonix Iv IVPUSH 40 mg DAILY DMITRY Administration Polyethylene Glycol 17 gm 06/19/19 12:00 06/21/19 11:04 Miralax (For Daily Use) - PO 17 gm DAILY DMITRY Administration Prochlorperazine Maleate 10 mg 06/19/19 13:02 Compazine - PO Q4H PRN NAUSEA AND/OR VOMITING ASSESSMENT/PLAN: Patient is a 63 y/o female with a history of DM, HTN, HLD, TIA, and osteomylitis who presents for abdominal pain. #abdominal pain, nausea, vomiting - 2/2 to gastroparesis vs viral vs cholelithiasis vs constipation vs UTI - FOBT negative on rectal exam - Gastric emptying study not approved by radiology - supportive care with fluids and compazine - Spoke to Dr. Vaughn on the phone, he will evaluate patient and give recommendations on EGD. In the meantime he suggested we could change her anti- emetic from compazine to zofran. Awaiting his final recommendations. - avoid motility agents as patient has prolonged QTC (463) - clear liquid diet, advance as tolerated - bowel regimen for constipation, will give lactulose today as patient didn' t respond to suppository yesterday. - GI consulted, appreciate recommendations - continuing supportive care until blood sugars better controlled, if vomiting is unremitting consider EGD and neurologic work up of symptoms # Mass R lower flank - bx shows epidermal inclusion cyst - will refer to general surgery as an outpt if the patient would like it removed #UTI - UA: leukocyte esterase 3+, WBC 939 - Continuing Ceftriaxone - f/u urine cx - asymptomatic #DM - BGM ACHS - SS - last A1c 03/02/19: 11.4 - resume levemir 5 once patient begins eating again #HTN - continue lisinorpil 20 daily #hx TIA - continue ASA # B/L Adrenal nodules - patient was advised to follow as out pt DVT - Lovenox sq daily FEN - NS @ 100 Visit type - Emergency Visit Emergency Visit: Yes ED Registration Date: 06/19/19 Care time: The patient presented to the Emergency Department on the above date and was hospitalized for further evaluation of their emergent condition. - New Patient This patient is new to me today: No - Critical Care Critical Care patient: No - Discharge Referral Referred to [facility] Med P.C.: No ATTENDING PHYSICIAN STATEMENT I saw and evaluated the patient. I reviewed the resident's note and discussed the case with the resident. I agree with the resident's findings and plan as documented. SUBJECTIVE: OBJECTIVE: ASSESSMENT AND PLAN:
[2019-06-21] MEDS ORDERED: LACTULOSE 20 GM/30 ML UDC (FOR ORAL USE ONLY) PO ONE (11:15)
--- NOTE | 2019-06-21 20:24 | PN.GI ---
GI Progress Note Subjective: coverage for Dr Hawkins recurrent abdominal pain and vomiting despite medication tolerating clear liquids - Objective Vital Signs: Vital Signs Temperature 98.0 F 06/21/19 18:00 Pulse Rate 98 H 06/21/19 18:00 Respiratory Rate 18 06/21/19 18:00 Blood Pressure 106/67 06/21/19 18:00 O2 Sat by Pulse Oximetry (%) 100 06/21/19 09:00 Constitutional: No Distress Eyes: Yes: Conjunctiva Clear HENT: Yes: Atraumatic Respiratory: Yes: CTA Bilaterally ...Palpate: Yes: Soft. No: Firm/Rigid, Guarding, Hepatomegaly, Mass, Pulsatile Mass, Splenomegaly, Tenderness Labs: CBC, BMP 06/21/19 07:17 06/21/19 07:17 Problem List - Problems (1) Vomiting Assessment/Plan: r/o peptic ulcer disease, gastroparesis, non ulcerative dyspepsia R> FOR EGD continue PPI Code(s): R11.10 - VOMITING, UNSPECIFIED
[2019-06-21] MEDS: INSULIN (LEVEMIR) 100 UNITS/ML UNITS SQ SCH (22:38)
[2019-06-21] MEDS: ATORVASTATIN CA 40 MG TABLET (FP) PO SCH (22:39)
[2019-06-22] MEDS: INSULIN SLIDING SCALE (NOVOLOG) 1 VIAL SQ SCH ×2 (06:21→12:12)
[2019-06-22 07:58] LABS: HEMOGLOBIN 11.5 GM/dL (10.7-15.3); MCH 30.9 pg (25.7-33.7); MCHC 34.9 g/dl (32.0-36.0); MEAN CELL VOLUME 88.6 fl (80-96); MEAN PLT VOLUME 9.7 fl (7.5-11.1); PLATELET COUNT 254 K/MM3 (134-434); RBC 3.72 M/mm3 (3.60-5.2); RDW 14.2 % (11.6-15.6); WHITE BLOOD COUNT 8.3 K/mm3 (4.0-10.0)
[2019-06-22 08:28] LABS: ALBUMIN 3.8 g/dl (3.4-5.0); BILIRUBIN,TOTAL 1.2 mg/dL (0.2-1); BLOOD UREA NITROGEN 15.7 mg/dL (7-18); CALCIUM 8.9 mg/dL (8.5-10.1); CREATININE 0.8 mg/dL (0.55-1.3); POTASSIUM 3.4 mmol/L (3.5-5.1); TOT PROT 7.5 g/dl (6.4-8.2)
[2019-06-22] MEDS ORDERED: cefTRIAXone SODIUM 1 GM VIAL ONE (10:22)
[2019-06-22] MEDS ORDERED: DEXTROSE 5%-WATER - 100 ML IVPB ONE (10:22)
[2019-06-22] MEDS: LISINOPRIL 20 MG TABLET (FP) PO SCH (10:36)
[2019-06-22] MEDS: DOCUSATE SODIUM 100 MG CAPSULE (FP) PO SCH (10:36)
[2019-06-22] MEDS: CEFTRIAXONE 1 GM in DEXTROSE 5%-WATER - 50 ML IVPB SCH (10:37)
[2019-06-22] MEDS: POLYETHYLENE GLYCOL 3350 119 GM BTL PO SCH (10:37)
[2019-06-22] MEDS: PANTOPRAZOLE SODIUM 40 MG VIAL IVPUSH SCH (10:38)
[2019-06-22] MEDS: ASPIRIN 81 MG CHEWABLE TABLETS PO SCH (12:08)
[2019-06-22] MEDS: ENOXAPARIN NA (PORCINE) 40 MG/0.4 ML DISP.SYRIN SQ SCH (12:08)
[2019-06-22] MEDS ORDERED: INSULIN (NOVOLOG) ASPART 100 UNITS/ML 10ML VIAL ONE (12:43)
[2019-06-22] MEDS: SODIUM CHLORIDE 1,000 ML IV SCH (12:44)
--- NOTE | 2019-06-22 14:31 | PN ---
Teaching Attending Note Name of Resident: Sindi Mcmahon ATTENDING PHYSICIAN STATEMENT I saw and evaluated the patient. I reviewed the resident's note and discussed the case with the resident. I agree with the resident's findings and plan as documented. SUBJECTIVE: No fever or chills. No BREWER , no pain. no N/V today. drank juice despite being instructed not to for EGD . had 2 BMs yesterday OBJECTIVE: NAD, awake HEENT: MMM. CV: RRR, no MRG Lungs: CTAB Abd: soft, NT, ND, NL BS a non tender soft tissue mass in lower R flank and upper buttock area. Ext : No edema or erythema. ASSESSMENT AND PLAN: 63 y/o lady with h/o DM, HTN, HLD, TIA, osteomylitis, and medication non compliance who presented with Abd pain and N/V x 2 days. she was found to have UTI. 1- Abd pain, N/V: could be due to gastritis, PUD, gastroperesis. - cont PPI after dc - EGD was canceled as patient drank juice. - will have her f/u with GI as out pt for EGD as her sx resolved - advance diet - dc IVF - bowel regimen 2- UTI: - Finished 3 days of CTX. urine cx canceled . will cont with keflex fro 4 more days 3- R lower flank, upper buttock area mass. - Bx results reviewed: epidermal inclusion cyst. f/u as out pt. - will refer to Dr. Tripathi 4- B/L Adrenal nodules: patient was advised to follow as out pt 5- DM; poorly controlled last A1c 11 in 03/07. - cont insulin at dc ( levemir and SSI ). will make sure to get teaching how to use insulin and prescribe suppplies 6- HTN: cont lisinopril. 7- h/o TIA : cont ASa Dc home
[2019-06-22 14:50] VITALS: BP 128/74; PULSE 91; TEMP 98.3
--- NOTE | 2019-06-23 11:00 | DS ---
Physical Exam: SUBJECTIVE: Patient seen and examined OBJECTIVE: Vital Signs Period Temp Pulse Resp BP Sys/Hidalgo Pulse Ox Last 24 Hr 98.3 F 91 20 128/74 PHYSICAL EXAM GENERAL: The patient is awake, alert, and fully oriented, in no acute distress. HEAD: Normal with no signs of trauma. EYES: PERRL, extraocular movements intact, sclera anicteric, conjunctiva clear. ENT: Ears normal, nares patent, oropharynx clear without exudates, moist mucous membranes. NECK: Trachea midline, full range of motion, supple. LUNGS: Breath sounds equal, clear to auscultation bilaterally, no wheezes, no crackles, no accessory muscle use. HEART: Regular rate and rhythm, S1, S2 without murmur, rub or gallop. ABDOMEN: Soft, nontender, nondistended, normoactive bowel sounds, no guarding, no rebound, no hepatosplenomegaly, no masses. EXTREMITIES: 2+ pulses, warm, well-perfused, no edema. NEUROLOGICAL: Cranial nerves II through XII grossly intact. Normal speech, gait not observed. PSYCH: Normal mood, normal affect. SKIN: Warm, dry, normal turgor, no rashes or lesions noted. LABS Laboratory Results - last 24 hr 06/22/19 11:42 POC Glucometer 157 HOSPITAL COURSE: Date of Admission:06/19/19 63 y/o lady with h/o DM, HTN, HLD, TIA, osteomylitis, and medication non compliance who presented with Abd pain and N/V x 2 days. she was found to have UTI. 1- Abd pain, N/V: could be due to gastritis, PUD, gastroperesis. - cont PPI after dc - EGD was canceled as patient drank juice. - will have her f/u with GI as out pt for EGD as her sx resolved - advance diet - dc IVF - bowel regimen 2- UTI: - Finished 3 days of CTX. urine cx canceled . will cont with keflex fro 4 more days 3- R lower flank, upper buttock area mass. - Bx results reviewed: epidermal inclusion cyst. f/u as out pt. - will refer to Dr. Tripathi 4- B/L Adrenal nodules: patient was advised to follow as out pt 5- DM; poorly controlled last A1c 11 in 03/07. - cont insulin at dc ( levemir and SSI ). will make sure to get teaching how to use insulin and prescribe suppplies 6- HTN: cont lisinopril. Date of Discharge: 06/23/19 Minutes to complete discharge: 40 Discharge Summary Problems reviewed: Yes Reason For Visit: UTI,ABD PAIN Condition: Improved - Instructions Diet, Activity, Other Instructions: You were in the hospital because you had nausea and vomiting that was associated with abdominal pain. You also have diabetes and your blood sugars have not been very well controlled. It is possible your symptoms are caused by your diabetes which caused your GI system to move very slowly. Your symptoms improved after we gave you medicine to make you pass stool. Once your blood sugars are under better control your GI symptoms will likely improve. You will need to follow up with your GI doctor to get an Endoscopy to better evaluate the cause of your symptoms. Also during your hospital stay we discovered you have bilateral adrenal nodules. You should follow up with your primary care doctor for further testing. Finally, we found out that the mass on your right flank was a benign cyst. We are giving you a referral for a general surgeon who can remove it if you find it bothersome. Please take all of your home medications as prescribed with the following changes: -ADD: - protonix 40mg daily - Keflex 500mg every 12 hours for FOUR days and then STOP For your DIABETES please make the following changes to your treatment plan, discuss this when you see your primary care doctor. Please take the following: - Metformin XR 500mg daily - Lantus 5 units at night, this is a long acting insulin to keep your blood sugar stable - Novolog sliding scale, this is an insulin you take with meals. You should check your blood sugar before every meal to determine how much Novolog to take. If you blood sugar is LESS THAN 200, do not take any Novolog. If you blood sugar is between 201-250 take 2 units of Novolog, and if your blood sugar is between 251-300 take 4 units of novolog. If your blood sugar is 301-350 take 6 units , if your sugar 251-400 take 8 units , if > 100 take 10 units and call MD or go to the ER . - if yor sugar < 80 and you or you feels shaky , take orange juice and crackers and call MD Please follow up with the following doctors within 1 week of discharge from the hospital: - Dr. Santana, your primary care doctor, to help you adjust your diabetes medicine so your sugars are better controlled and to further evaluate your adrenal nodules. - Dr. Mesa, for an endoscopy as an outpatient and to follow up on your nausea, vomiting, and abdominal pain You may follow up with Dr. Tripathi if you feel the mass on your right side is bothersome and you wish to have it removed. If you have increased nausea, vomiting, constipation, diarrhea, or worsening abdominal pain, please return to the Emergency Department immediately. Referrals: Sander Tripathi MD [Staff Physician] - 1 Month Abrahan Mesa DO [Staff Physician] - 1 Week Juliann Santana MD [Primary Care Provider] - 1 Week Disposition: HOME - Home Medications Comprehensive Discharge Medication List: Ambulatory Orders Aspirin [ASA -] 81 mg PO DAILY 08/01/17 Atorvastatin Ca [Lipitor] 40 mg PO HS #30 tablet 08/02/17 Lactobacillus Acidophilus [Bacid -] 1 tab PO BID 06/21/19 Alcohol Antiseptic Pads [Alcohol Prep Pads] 1 each ACHS #300 med..pad Blood Sugar Diagnostic [Test Strips] 1 each MC BID #60 strip 06/22/19 Cephalexin [Keflex] 500 mg PO Q12H #8 capsule 06/22/19 Insulin (Novolog) [Novolog -] 0 units SQ ASDIR #3 vial 06/22/19 Insulin Glargine,Hum.rec.anlog [Lantus] 5 unit SQ HS #1 vial 06/22/19 Lisinopril [Prinivil] 20 mg PO DAILY #30 tablet 06/22/19 Miscellaneous Medical Supply [Glucometer Device] 1 each .ROUTE ASDIR #1 kit 01/05 Miscellaneous Medical Supply [Glucometer Test Strips #100] 1 each .ROUTE ASDIR # 1 box 06/22/19 Miscellaneous Medical Supply [Lancets] 1 each SQ ASDIR #60 box 06/22/19 Pantoprazole Sodium [Protonix] 40 mg PO DAILY #30 tablet.dr 06/22/19 Syringe with Needle, 1 ml [Easy Touch] 1 each ACHS #400 disp.syrin 06/22/19 metFORMIN XR [Glucophage Xr -] 500 mg PO DAILY@0700 #30 tab.sr.24h 06/22/19 This patient is new to me today: No Emergency Visit: Yes ED Registration Date: 06/19/19 Care time: The patient presented to the Emergency Department on the above date and was hospitalized for further evaluation of their emergent condition. Critical Care patient: No - Discharge Referral Referred to [facility] Med P.C.: No ATTENDING PHYSICIAN STATEMENT I saw and evaluated the patient. I reviewed the resident's note and discussed the case with the resident. I agree with the resident's findings and plan as documented. SUBJECTIVE: OBJECTIVE: ASSESSMENT AND PLAN:
== END 2019-06-22 16:48 | disposition home or self-care (01) | DRG 463 ==
LOC: JER 22:13 → JERBED 06-19 07:52 → J5S 06-19 15:49
PROVIDERS: ADMIT Internal Medicine; ATTEND Internal Medicine
PROC: 0JB73ZX Excision of Back Subcutaneous Tissue and Fascia, Percutaneous Approach, Diagnostic (ICD-10-PCS; principal; 2019-06-19)
DX: N39.0 Urinary tract infection, site not specified (principal); E78.5 Hyperlipidemia, unspecified; A08.4 Viral intestinal infection, unspecified; K80.20 Calculus of gallbladder without cholecystitis without obstruction; K59.00 Constipation, unspecified; I10 Essential (primary) hypertension; L72.0 Epidermal cyst; E11.43 Type 2 diabetes mellitus with diabetic autonomic (poly)neuropathy; K76.0 Fatty (change of) liver, not elsewhere classified; R11.2 Nausea with vomiting, unspecified; K31.84 Gastroparesis
CPT/HCPCS: 20206; 36415; 71045-TC-FY; 74177-TC; 76098-TC-FY; 76700-TC; 76998-TC; 80053; 81003; 82248; 82550; 82962; 83605; 83690; 83735; 84100; 84484; 85025; 85027; 87899; 88305-TC; 93005; 93010; 99285-25; J7030

== ENCOUNTER 2019-06-28 21:13 | Emergency (ER) | payer OTHER ==
[2019-06-28 21:21] VITALS: BP 118/61; TEMP 98.2; BMI 18.6
--- NOTE | 2019-06-28 22:04 | PDOC ---
History of Present Illness - General Chief Complaint: Wound Stated Complaint: RT FOOT PAIN Time Seen by Provider: 06/28/19 21:51 History Source: Patient Exam Limitations: No Limitations - History of Present Illness Initial Comments: 06/28/19 22:03 Dolly Perez is a 63yF w PMHx DM, diabetic neuropathy, HTN, HLD presenting w R foot pain. Pt notes 1 week of R foot pain between 2nd and 3rd toe digits. Daughter at bedside states the patient scratched her dorsal side of foot couple of days ago. Now notes indurated swollen region. Had osteomyelitis and cellulitis in 02/2019 s/p bone removal, antibiotics, hyperbarics. Pt also has dry cough. Poor med/diet compliance. Denies fever, headache, cough, SOB, chest/ AB pain, urinary/bowel movement changes. Past History - Past Medical History Allergies/Adverse Reactions: Allergies Allergy/AdvReac Type Severity Reaction Status Date / Time lactose AdvReac Verified 06/28/19 21:16 Home Medications: Ambulatory Orders Aspirin [ASA -] 81 mg PO DAILY 08/01/17 Atorvastatin Ca [Lipitor] 40 mg PO HS #30 tablet 08/02/17 Lactobacillus Acidophilus [Bacid -] 1 tab PO BID 06/21/19 Alcohol Antiseptic Pads [Alcohol Prep Pads] 1 each TP ACHS #300 med..pad Blood Sugar Diagnostic [Test Strips] 1 each MC BID #60 strip 06/22/19 Cephalexin [Keflex] 500 mg PO Q12H #8 capsule 06/22/19 Insulin (Novolog) [Novolog -] 0 units SQ ASDIR #3 vial 06/22/19 Insulin Glargine,Hum.rec.anlog [Lantus] 5 unit SQ HS #1 vial 06/22/19 Lisinopril [Prinivil] 20 mg PO DAILY #30 tablet 06/22/19 Miscellaneous Medical Supply [Glucometer Device] 1 each .ROUTE ASDIR #1 kit 01/05 Miscellaneous Medical Supply [Glucometer Test Strips #100] 1 each .ROUTE ASDIR # 1 box 06/22/19 Miscellaneous Medical Supply [Lancets] 1 each SQ ASDIR #60 box 06/22/19 Pantoprazole Sodium [Protonix] 40 mg PO DAILY #30 tablet. 10/04/19 Syringe with Needle, 1 ml [Easy Touch] 1 each [facility] #400 disp.syrin 06/22/19 metFORMIN XR [Glucophage Xr -] 500 mg PO DAILY@0700 #30 tab.sr.24h 06/22/19 Cephalexin [Keflex] 500 mg PO QID 10 Days #40 capsule 06/29/19 Sulfamethoxazole/Trimethoprim [Bactrim Ds -] 1 tab PO BID 10 Days #20 tablet 08/07 Anemia: No Asthma: No Cancer: No Cardiac Disorders: Yes (ANGINA) CVA: No COPD: No CHF: No Diabetes: Yes (IDDM) GI Disorders: No Disorders: No HTN: Yes Hypercholesterolemia: Yes Liver Disease: No Psychiatric Problems: Yes (depression/ ANXIETY) Seizures: No Thyroid Disease: No - Surgical History Orthopedic Surgery: Yes - Immunization History Immunization Up to Date: Yes - Psycho Social/Smoking Cessation Hx Smoking Status: No Smoking History: Never smoked Have you smoked in the past 12 months: No Number of Cigarettes Smoked Daily: 0 Cigars Per Day: 0 Information on smoking cessation initiated: No Hx Alcohol Use: No Drug/Substance Use Hx: No Substance Use Type: None Hx Substance Use Treatment: No Review of Systems - Review of Systems Constitutional: No: Chills, Fever HEENTM: No: Eye Pain, Nose Pain, Throat Pain, Mouth Pain Respiratory: Yes: Cough. No: Shortness of Breath Cardiac (ROS): No: Chest Pain, Palpitations, Syncope ABD/GI: No: Abdominal Distended, Constipated, Diarrhea, Nausea, Vomiting : No: Burning, Dysuria, Discharge, Flank Pain, Hematuria, Incontinence Musculoskeletal: No: Back Pain, Muscle Pain, Muscle Weakness Integumentary: No: Bruising, Flushing, Lesions Neurological: No: Headache, Seizure, Tingling, Tremors Psychiatric: No: Anxiety, Depression, Stressors Endocrine: No: Excessive Sweating, Flushing, Intolerance to Cold, Intolerance to Heat Hematologic/Lymphatic: No: Anemia, Blood Clots *Physical Exam - Vital Signs Last Vital Signs Temp Pulse Resp BP Pulse Ox 98.2 F 95 H 17 118/61 99 06/28/19 21:17 06/28/19 21:17 06/28/19 21:17 06/28/19 21:17 06/28/19 21:17 - Physical Exam General Appearance: Yes: Nourished, Appropriately Dressed. No: Apparent Distress HEENT: positive: EOMI, GINETTE, Normal Voice, Hearing Grossly Normal. negative: Scleral Icterus (R), Scleral Icterus (L), Nasal Congestion, Rhinorrhea Respiratory/Chest: positive: Lungs Clear, Normal Breath Sounds. negative: Chest Tender, Respiratory Distress, Crackles, Rales, Rhonchi, Stridor, Wheezing Cardiovascular: positive: Regular Rhythm, S1, S2, Tachycardia. negative: Edema , Murmur Vascular Pulses: Dorsalis-Pedis (R): 3+, Doralis-Pedis (L): 3+ Extremity: positive: Normal Capillary Refill Integumentary: positive: Normal Color, Other (R foot induration and mild swelling plantar surface R foot MTP 2nd-4th digits w mild tenderness. No erythema/warmth. No open wounds) Neurologic: positive: Fully Oriented, Alert, Normal Mood/Affect, Normal Response , Responsive, Sensory Deficit (reduced sensation to touch BLE ). negative: Motor Strength 5/5 (4/5 strength BLE), Confused, Disoriented ED Treatment Course - LABORATORY CBC & Chemistry Diagram: 06/28/19 22:40 06/28/19 22:40 Medical Decision Making - Medical Decision Making 06/28/19 22:12 CBC CMP glucose blood cx R foot XR shows no gross fractures/dislocations/osteomyelitis CXR clear lung perales tylenol for pain CBC, CMP normal, BG 226 --- Dolly Perez is a 63yF w PMHx DM, diabetic neuropathy, HTN, HLD presenting w 1wk R foot pain d/t diabetic foot wound (past hx DM, poorly healing ulcers). Low concern cellulitis (afebrile, no open wound, not warm/red) vs arterial occlusion (retained pulses, normal color), R foot XR shows no gross fractures/ dislocations/osteomyelitis, no sign of infection on CXR, normal CBC CMP, mildly elevated BG. Given tylenol for pain. D/c home with 10d bactrim, keflex prescription and PCP f/u Discharge - Discharge Information Problems reviewed: Yes Clinical Impression/Diagnosis: Wound of foot Condition: Good Disposition: HOME - Admission No - Additional Discharge Information Prescriptions: Cephalexin [Keflex] 500 mg PO QID 10 Days #40 capsule Sulfamethoxazole/Trimethoprim [Bactrim Ds -] 1 tab PO BID 10 Days #20 tablet - Follow up/Referral Referrals: Juliann Santana MD [Primary Care Provider] - - Patient Discharge Instructions Patient Printed Discharge Instructions: DI for Foot Pain Additional Instructions: You were seen for foot pain. Your labs and imaging did not show anything concerning. Please follow up with your Tuesday appointment at the wound clinic. Take your prescribed antibiotics Keflex and Bactrim as directed for the next 10 days. You can take tylenol or ibuprofen if you continue to have pain. Come back to the ED if you have a fever, cannot walk, or have an open foot wound. - Post Discharge Activity
[2019-06-28] MEDS ORDERED: ACETAMINOPHEN 1000 MG/100 ML VIAL (NON FORMULARY) IVPB ONE (22:12)
[2019-06-28] MEDS ORDERED: ACETAMINOPHEN INJECTION 100 ML IVPB ONE (22:16)
[2019-06-28 22:51] LABS: BASO % 1.1 % (0-2.0); HEMATOCRIT 33.3 % (32.4-45.2); HEMOGLOBIN 11.1 GM/dL (10.7-15.3); LYMPH % 38.3 % (8-40); MCH 30.6 pg (25.7-33.7); MCHC 33.4 g/dl (32.0-36.0); MEAN CELL VOLUME 91.5 fl (80-96); MEAN PLT VOLUME 9.7 fl (7.5-11.1); MONO % 6.1 % (3.8-10.2); NEUT % 52.5 % (42.8-82.8); PLATELET COUNT 267 K/MM3 (134-434); RBC 3.64 M/mm3 (3.60-5.2); RDW 14.3 % (11.6-15.6)
--- NOTE | 2019-06-28 22:57 | PDOC ---
Documentation entered by Yun Huerta SCRIBE, acting as scribe for Dixie Cormier DO. Dixie Cormier, DO: This documentation has been prepared by the Bradley grossman Xhesika, SCRIBE, under my direction and personally reviewed by me in its entirety. I confirm that the documentation accurately reflects all work, treatment, procedures, and medical decision making performed by me. Attending Attestation - Resident Resident Name: DanielleBg - ED Attending Attestation I have performed the following: I have examined & evaluated the patient, The case was reviewed & discussed with the resident, I agree w/resident's findings & plan, Exceptions are as noted - HPI HPI: 06/28/19 22:50 The patient is a 63 year old female with a significant PMH of DM, diabetic neuropathy, HTN, HLD, diabetic foot wounds who presents to the emergency department for 1 week of R foot pain. Daughter at bedside states the patient scratched her dorsal side of foot at 4th and 5th digit a couple of days ago. The patient is now endorsing an indurated area on her plantar foot that is hard. Patient notes she is endorsing a dry cough. The patient denies chest pain, shortness of breath, headache and dizziness. Denies fever, chills, nausea, vomiting, diarrhea and constipation. Denies dysuria, frequency, urgency and hematuria. Allergies: lactose PCP: Juliann Alberto - Physicial Exam PE: 06/28/19 22:52 GENERAL: Awake, alert, and fully oriented, in no acute distress HEAD: No signs of trauma NECK: Normal ROM, supple, no lymphadenopathy, JVD, or masses LUNGS: Breath sounds equal, clear to auscultation bilaterally. No wheezes, and no crackles HEART: Regular rate and rhythm, normal S1 and S2, no murmurs, rubs or gallops ABDOMEN: Soft, nontender, normoactive bowel sounds. No guarding, no rebound. No masses EXTREMITIES: + R plantar foot 3rd, 4th and 5th digits indurated and hard. Normal range of motion, no edema. No clubbing or cyanosis. No cords, erythema, or tenderness NEUROLOGICAL: Cranial nerves II through XII grossly intact. Normal speech SKIN: Warm, Dry, normal turgor, no rashes or lesions noted. 06/28/19 22:55 - Medical Decision Making 06/28/19 22:54 I, Dr. Dixie Cormier, DO, attest that this document has been prepared under my direction and personally reviewed by me in its entirety. I further attest, that it accurately reflects all work, treatment, procedures and medical decision -making performed by me. 06/28/19 22:55 a/p: 63yo female bib her daughter for eval of elevated glu and R foot pain -pt is noncompliant with her DM meds -pt states R foot pain x 1 week -scratch to dorsum of the foot about a week ago and now with induration to bottom of the foot -pt denies redness -no fever -hx of osteo of the 3rd and 4th digits over the summer -swelling present without redness or drainage -induration and hardening of the skin is present 06/28/19 23:54 no elevated wbc elevated glu and calcium 06/29/19 00:49 xray does not show acute osteo changes soft tissue swelling to base of foot will start oral abx pt is nontoxic in appearance pt has appt on tuesday with the wound care clinic will start bactrim/keflex and discussed all reasons to return to the ED
[2019-06-28 23:30] LABS: ALBUMIN 4.2 g/dl (3.4-5.0); BILIRUBIN,TOTAL 0.4 mg/dL (0.2-1); BLOOD UREA NITROGEN 19.8 mg/dL (7-18); CALCIUM 10.3 mg/dL (8.5-10.1); CREATININE 0.8 mg/dL (0.55-1.3); POTASSIUM 3.9 mmol/L (3.5-5.1); TOT PROT 8.1 g/dl (6.4-8.2)
[2019-06-29] MEDS ORDERED: SULFAMETHOXAZOLE/TRIMETHOPRIM 800MG/160MG D.S. TABLET ONE (00:46)
[2019-06-29] MEDS ORDERED: CEPHALEXIN MONOHYDRATE 500 MG CAPSULE (UD) ONE (00:46)
[2019-06-29] MEDS ORDERED: CEPHALEXIN MONOHYDRATE 500 MG CAPSULE (UD) PO ONE (00:47)
[2019-06-29] MEDS ORDERED: SULFAMETHOXAZOLE/TRIMETHOPRIM 800MG/160MG D.S. TABLET PO ONE (00:47)
[2019-06-29 00:55] VITALS: PULSE 94
== END 2019-06-29 00:58 | disposition home or self-care (01) ==
LOC: JER 21:13
PROC: 3E033NZ Introduction of Analgesics, Hypnotics, Sedatives into Peripheral Vein, Percutaneous Approach (ICD-10-PCS; principal; 2019-06-28)
DX: E11.65 Type 2 diabetes mellitus with hyperglycemia (principal); E11.42 Type 2 diabetes mellitus with diabetic polyneuropathy; Z79.4 Long term (current) use of insulin; E78.5 Hyperlipidemia, unspecified; S91.301A Unspecified open wound, right foot, initial encounter; X58.XXXA Exposure to other specified factors, initial encounter; Y93.89 Activity, other specified; Y92.89 Other specified places as the place of occurrence of the external cause; Y99.8 Other external cause status; Z88.9 Allergy status to unspecified drugs, medicaments and biological substances
CPT/HCPCS: 36415; 71046-TC-FY; 73630-TC-RT-FY; 80053; 85025; 87040; 99283-25; J0131

== ENCOUNTER 2019-07-20 19:22 | Inpatient (IN) | payer OTHER ==
[2019-07-20] MEDS ORDERED: SODIUM CHLORIDE 1,000 ML IV STA (19:29)
--- NOTE | 2019-07-20 19:29 | PDOC ---
Rapid Medical Evaluation Time Seen by Provider: 07/20/19 19:25 Medical Evaluation: Allergies Allergy/AdvReac Type Severity Reaction Status Date / Time lactose AdvReac Verified 06/28/19 21:16 07/20/19 19:27 Pt c/o:dizziness while in shower, recent admission for uti 3 weeks ago, denies fever, bloody stool, or hx anemia Pt on brief exam: pale appearing, tachycardic Pt ordered for: labs, urine, ivf, ekg Pt to proceed to the ED Discharge Disposition - Diagnosis Dizziness - Referrals Referrals: Juliann Santana MD [Primary Care Provider] - - Patient Instructions - Post Discharge Activity
--- NOTE | 2019-07-20 19:58 | PDOC ---
History of Present Illness - General Chief Complaint: Lightheaded Stated Complaint: DIZZINESS/WEAK Time Seen by Provider: 07/20/19 19:25 - History of Present Illness Initial Comments: 07/20/19 19:58 63 yo F PMH poorly controlled IDDM, diabetic neuropathy, TIA, HTN, HLD, diabetic foot wounds, h/o osteomyelitis, recent admission 3 weeks ago for UTI, presenting with pre-syncope. Reports that she was in the bathroom taking hot shower and felt "tunnel vision" sensation, no fall, no LOC. Has not been eating or drinking much for the past week 2/2 reduced appetite. Further reports dizziness for a week, "room spinning", not triggered by anything. Denies CP, SOB, BREWER, N/V, recent travel, constipation/diarrhea. Endorses ongoing dizziness. Past History - Past Medical History Allergies/Adverse Reactions: Allergies Allergy/AdvReac Type Severity Reaction Status Date / Time lactose AdvReac Verified 06/28/19 21:16 Home Medications: Ambulatory Orders Aspirin [ASA -] 81 mg PO DAILY 08/01/17 Atorvastatin Ca [Lipitor] 40 mg PO HS #30 tablet 08/02/17 Lactobacillus Acidophilus [Bacid -] 1 tab PO BID 06/21/19 Alcohol Antiseptic Pads [Alcohol Prep Pads] 1 each ACHS #300 med..pad Blood Sugar Diagnostic [Test Strips] 1 each MC BID #60 strip 06/22/19 Insulin (Novolog) [Novolog -] 0 units SQ ASDIR #3 vial 06/22/19 Insulin Glargine,Hum.rec.anlog [Lantus] 5 unit SQ HS #1 vial 06/22/19 Lisinopril [Prinivil] 20 mg PO DAILY #30 tablet 06/22/19 Miscellaneous Medical Supply [Glucometer Device] 1 each .ROUTE ASDIR #1 kit 01/05 Miscellaneous Medical Supply [Glucometer Test Strips #100] 1 each .ROUTE ASDIR # 1 box 06/22/19 Miscellaneous Medical Supply [Lancets] 1 each SQ ASDIR #60 box 06/22/19 Pantoprazole Sodium [Protonix] 40 mg PO DAILY #30 tablet.dr 06/22/19 Syringe with Needle, 1 ml [Easy Touch] 1 each [facility]CH[facility] #400 disp.syrin 06/22/19 metFORMIN XR [Glucophage Xr -] 500 mg PO DAILY@0700 #30 tab.sr.24h 06/22/19 Anemia: No Asthma: No Cancer: No Cardiac Disorders: Yes (ANGINA) CVA: No COPD: No CHF: No Diabetes: Yes (IDDM) GI Disorders: No Disorders: No HTN: Yes Hypercholesterolemia: Yes Liver Disease: No Psychiatric Problems: Yes (depression/ ANXIETY) Seizures: No Thyroid Disease: No - Surgical History Orthopedic Surgery: Yes - Immunization History Immunization Up to Date: Yes - Psycho Social/Smoking Cessation Hx Smoking Status: No Smoking History: Never smoked Have you smoked in the past 12 months: No Number of Cigarettes Smoked Daily: 0 Cigars Per Day: 0 Hx Alcohol Use: No Drug/Substance Use Hx: No Substance Use Type: None Hx Substance Use Treatment: No *Physical Exam - Vital Signs Last Vital Signs Temp Pulse Resp BP Pulse Ox 98.2 F 116 H 19 114/70 99 07/20/19 19:25 07/20/19 19:25 07/20/19 19:25 07/20/19 19:25 07/20/19 19:25 - Physical Exam Comments: 07/20/19 22:49 Gen: well-developed, well-nourished, NAD Neuro: AAOX4, CN II-XII intact, FTN intact, EOMI, PERRLA, 5/5 strength, SILT HEENT: atraumatic, normocephalic, extremely dry mucous membranes Neck: trachea midline, supple CV: tachycardic, regular rhythm, no murmurs, rubs, or gallops Pulm: CTA b/l, no wheezing Abd: soft, non-distended, non-tender MSK: full ROM, intact pulses Extr: no edema, no deformities Skin: warm, dry ED Treatment Course - LABORATORY CBC & Chemistry Diagram: 07/20/19 20:50 07/20/19 20:50 Medical Decision Making - Medical Decision Making 07/20/19 20:20 EKG normal sinus at 103 bpm, T wave inversions in V4-V6 which were not present 5 months ago. Discharge - Discharge Information Problems reviewed: Yes Clinical Impression/Diagnosis: Dizziness, UTI (urinary tract infection) - Admission Yes - Follow up/Referral Referrals: Juliann Santana MD [Primary Care Provider] - - Patient Discharge Instructions - Post Discharge Activity
[2019-07-20 21:07] LABS: BASO % 0.8 % (0-2.0); EOS % 2.7 % (0-4.5); HEMATOCRIT 34.4 % (32.4-45.2); HEMOGLOBIN 11.5 GM/dL (10.7-15.3); LYMPH % 46.5 % (8-40); MCH 30.6 pg (25.7-33.7); MCHC 33.4 g/dl (32.0-36.0); MEAN CELL VOLUME 91.8 fl (80-96); MEAN PLT VOLUME 10.1 fl (7.5-11.1); MONO % 6.9 % (3.8-10.2); NEUT % 43.1 % (42.8-82.8); PLATELET COUNT 282 K/MM3 (134-434); RBC 3.75 M/mm3 (3.60-5.2); RDW 14.5 % (11.6-15.6); WHITE BLOOD COUNT 9.8 K/mm3 (4.0-10.0)
--- NOTE | 2019-07-20 21:36 | PDOC ---
Documentation entered by Nathan Wilson SCRIBE, acting as scribe for Jett Jay MD. Jett Jay MD: This documentation has been prepared by the Steve grossman Daniel, SCRIBE, under my direction and personally reviewed by me in its entirety. I confirm that the documentation accurately reflects all work, treatment, procedures, and medical decision making performed by me. Attending Attestation - Resident Resident Name: ValenteMaxcindy - ED Attending Attestation I have performed the following: I have examined & evaluated the patient, The case was reviewed & discussed with the resident, I agree w/resident's findings & plan - HPI HPI: 07/20/19 21:06 The patient is a 63 year old female with a past medical history of insulin dependent diabetes, HTN, and HLD here today for evaluation of room spinning dizziness. The patient reports that she had an episode lightheadedness and tunnel vision while in the shower/bathroom today. She states that she currently has room dizziness. She denies any falls and also states that she has had poor PO intake for one week. + flatus but constipated in the past week, no urinary complaints. Has not been checking her glucose at home. Patient denies headache. Denies fever, chills. Denies chest pain, shortness of breath. Denies nausea, vomiting, diarrhea, abdominal pain. Allergies: lactose PCP: Juliann Santana - Physicial Exam PE: 07/20/19 21:34 Afebrile, glucose normal, positive tachycardia with normal blood pressure Patient appears older than stated age, otherwise alert in no acute distress speaking full sentences Dry mucosa Heart is regular tachycardia, lungs are clear Abdomen benign No CVA tenderness or suprapubic tenderness Neurologically intact No edema - Medical Decision Making 07/20/19 21:35 63-year-old female with history of insulin dependent diabetes, hypertension presents with near syncope in the setting of 1 week of generalized weakness and failure to thrive with decreased p.o. intake and dehydration. Hemodynamically stable here but tachycardic and dehydrated, exam is otherwise nonfocal. Suspect metabolic versus infectious process, less likely focal ACS or neurological events. Labs, urinalysis EKG, chest x-ray IV fluid rehydration Reassess, likely admission 07/20/19 22:49 no leukocytosis, normal AG. UA with elev leuks and WBC c/w UTI. prior Ucx 03/07 grew pansensitive e. coli (except cefazolin). treat ceftriaxone, continue iv fluid hydration, will need admission given progression of illness over the past week. Heart Score/ECG Review #1 ECG reviewed & interpreted by me at: 20:16 General ECG Interpretation: Sinus Rhythm (tachy at 103), Normal Intervals (qtc 455), No acute ischemic changes (TWI V4V5) Compared to previous ECG there are: No significant change (c/w 06/19/19, lateral T waves flat/biphasic)
[2019-07-20 21:42] LABS: ALBUMIN 4.5 g/dl (3.4-5.0); ALK PHOS 63 U/L (45-117); ANION GAP 8 MMOL/L (8-16); BILIRUBIN,TOTAL 0.9 mg/dL (0.2-1); BLOOD UREA NITROGEN 22.5 mg/dL (7-18); CALCIUM 10.2 mg/dL (8.5-10.1); CHLORIDE 101 mmol/L (98-107); CO2 26 mmol/L (21-32); CREATININE 1.1 mg/dL (0.55-1.3); GLUCOSE,RANDOM 155 mg/dL (74-106); POTASSIUM 4.9 mmol/L (3.5-5.1); SGOT/AST 25 U/L (15-37); SGPT/ALT 14 U/L (13-61); SODIUM 135 mmol/L (136-145); TOT PROT 8.4 g/dl (6.4-8.2)
[2019-07-20 22:38] LABS: EPI CELLS 3.3 /HPF (0-5/HPF); HYALINE CASTS 16 /lpf (0-8); URINE APPEARANCE CLEAR; URINE BACTERIA 141.3 /hpf (NEGATIVE); URINE BILIRUBIN NEGATIVE (NEGATIVE); URINE COLOR YELLOW; URINE GLUCOSE (UA) NEGATIVE (NEGATIVE); URINE KETONE TRACE (NEGATIVE); URINE LEUK ESTERASE 3+ (NEGATIVE); URINE NITRITE NEGATIVE (NEGATIVE); URINE PROTEIN 1+ (NEGATIVE); URINE UROBILINOGEN 0.2 mg/dL (0.2-1.0); URINE WBC 56 /hpf (0-5)
[2019-07-20] MEDS ORDERED: CEFTRIAXONE 1,000 MG in DEXTROSE 5%-WATER - 50 ML IVPB ONE (22:52)
[2019-07-20 23:11] LABS: MAGNESIUM 2.2 mg/dL (1.8-2.4)
[2019-07-20] MEDS ORDERED: CEFTRIAXONE 1 GM/50 ML BAG ONE (23:11)
--- NOTE | 2019-07-20 23:31 | PN ---
Teaching Attending Note Name of Resident: Liseth March ATTENDING PHYSICIAN STATEMENT I saw and evaluated the patient. I reviewed the resident's note and discussed the case with the resident. I agree with the resident's findings and plan as documented. SUBJECTIVE: 63-year-old woman with a history of insulin-dependent diabetes, hypertension, dyslipidemia, TIA complained of about 1 week of generalized weakness and decreased appetite. Noted to have some episodes of near syncope. No history of trauma. Lives alone but can ambulate independently and perform her ADLs without any issues. As per discussion with ER provider, he felt that discharge home was unsafe at this time due to her generalized weakness and decreased appetite and oral fluid intake. OBJECTIVE: Last Vital Signs Temp Pulse Resp BP Pulse Ox 98.2 F 116 H 19 114/70 99 07/20/19 19:25 07/20/19 19:25 07/20/19 19:25 07/20/19 19:25 07/20/19 19:25 GENERAL: Well developed, well nourished. Awake and alert. No acute distress. HEENT: Normocephalic, atraumatic. PERRLA, EOMI. No conjunctival pallor. Sclera are non- icteric. Moist mucous membranes. Oropharynx is clear. NECK: Supple. Full ROM. No JVD. Carotid pulses 2+ and symmetric, without bruits. No thyromegaly. No lymphadenopathy. CARDIOVASCULAR: Regular rate and rhythm. No murmurs, rubs, or gallops. Distal pulses are 2+ and symmetric. PULMONARY: No evidence of respiratory distress. Lungs clear to auscultation bilaterally. No wheezing, rales or rhonchi. ABDOMINAL: Soft. Non-tender. Non-distended. No rebound or guarding. No organomegaly. Normoactive bowel sounds. MUSCULOSKELETAL Normal range of motion at all joints. No bony deformities or tenderness. No CVA tenderness. EXTREMITIES: No cyanosis. No clubbing. No edema. No calf tenderness. SKIN: Warm and dry. Normal capillary refill. No rashes. No jaundice. PSYCHIATRIC: Cooperative. Flat affect abnormal Lab Results 07/20/19 07/20/19 07/20/19 20:50 20:50 21:44 Lymphocytes % 46.5 H D Sodium 135 L BUN 22.5 H Random Glucose 155 H Calcium 10.2 H Total Protein 8.4 H Urine Protein 1+ H Urine Ketones Trace H Ur Leukocyte Esterase 3+ H EKG noted to have normal sinus rhythm ASSESSMENT AND PLAN: 63-year-old woman with failure to thrive and generalized weakness. Found to be tachycardic in the emergency room which may be from dehydration and intravascular volume loss. Admit to [facility] Encourage p.o. hydration Encourage patient to eat Restarted on her home medicines Diabetes mellitus Glucose in ER was within normal limits Restart on home insulin regimen Anticipate early discharge DVT prophylaxis with subcu heparin
--- NOTE | 2019-07-20 23:50 | HP ---
CHIEF COMPLAINT: Dizziness PCP: Dr. Juliann Santana HISTORY OF PRESENT ILLNESS: Patient is a 63 y/o female with a history of IDDM, HTN, HLD, TIA, and osteomylitis who presents with 1 week of altered mental status. Pt is poor historian. Daughter is at bedside to assist with history. Per daughter, pt has been experiencing lightheadedness and dizziness for one week. She has been more somnolent during the day with a decreased appetite. Pt has been acting more confused than usual and "not making sense" when talking. She has had constipation for 1 week as well. Earlier today, pt was in the shower when she became increasingly dizziness and felt like she would pass out. There was no fall or LOC. She denies any chest pain, palpitations, SOB, vision changes, or tinnitus. Of note, pt was recently admitted 3 weeks ago for UTI. She was discharged with Keflex 500mg BID but was not compliant and did not finish the treatment. Daughter states that pt is not compliant with any of her medications. ER course was notable for: (1) UA: 3+ LE, trace ketones, 1+ protein (2) Started on 1gm ceftriaxone (3) Recent Travel: denies PAST MEDICAL HISTORY: As per HPI PAST SURGICAL HISTORY: Foot debridements Social History: Smoking: denies Alcohol: denies Drugs: denies Pt lives at home with daughter. Allergies lactose Adverse Reaction (Verified 06/28/19 21:16) HOME MEDICATIONS: Home Medications Medication Instructions Recorded Aspirin [ASA -] 81 mg PO DAILY 08/01/17 Atorvastatin Ca [Lipitor] 40 mg PO HS #30 tablet 08/02/17 Lactobacillus Acidophilus [Bacid -] 1 tab PO BID 06/21/19 Alcohol Antiseptic Pads [Alcohol 1 each TP ACHS #300 med..pad 06/22/19 Prep Pads] Blood Sugar Diagnostic [Test 1 each BID #60 strip 06/22/19 Strips] Insulin (Novolog) [Novolog -] 0 units SQ ASDIR #3 vial 06/22/19 Insulin Glargine,Hum.rec.anlog 5 unit SQ HS #1 vial 06/22/19 [Lantus] Lisinopril [Prinivil] 20 mg PO DAILY #30 tablet 06/22/19 Miscellaneous Medical Supply 1 each .ROUTE ASDIR #1 kit 06/22/19 [Glucometer Device] Miscellaneous Medical Supply 1 each .ROUTE ASDIR #1 box 06/22/19 [Glucometer Test Strips #100] Miscellaneous Medical Supply 1 each SQ ASDIR #60 box 06/22/19 [Lancets] Pantoprazole Sodium [Protonix] 40 mg PO DAILY #30 tablet.dr 06/22/19 Syringe with Needle, 1 ml [Easy 1 each [facility] #400 disp.syrin 06/22/19 Touch] metFORMIN XR [Glucophage Xr -] 500 mg PO DAILY@0700 #30 tab.sr.24h 06/22/19 REVIEW OF SYSTEMS CONSTITUTIONAL: somnolent, loss of appetite Absent: fever, chills, diaphoresis, generalized weakness, malaise. weight change HEENT: Absent: rhinorrhea, nasal congestion, throat pain, throat swelling, difficulty swallowing, mouth swelling, ear pain, eye pain, visual changes CARDIOVASCULAR: Absent: chest pain, syncope, palpitations, irregular heart rate, lightheadedness , peripheral edema RESPIRATORY: Absent: cough, shortness of breath, dyspnea with exertion, orthopnea, wheezing, stridor, hemoptysis GASTROINTESTINAL: constipation Absent: abdominal pain, abdominal distension, nausea, vomiting, diarrhea, melena , hematochezia GENITOURINARY: Absent: dysuria, frequency, urgency, hesitancy, hematuria, flank pain, genital pain MUSCULOSKELETAL: Absent: myalgia, arthralgia, joint swelling, back pain, neck pain SKIN: Absent: rash, itching, pallor HEMATOLOGIC/IMMUNOLOGIC: Absent: easy bleeding, easy bruising, lymphadenopathy, frequent infections ENDOCRINE: Absent: unexplained weight gain, unexplained weight loss, heat intolerance, cold intolerance NEUROLOGIC: dizziness, lightheaded mental status changes Absent: headache, focal weakness or paresthesias, unsteady gait, seizure, bladder or bowel incontinence PSYCHIATRIC: Absent: anxiety, depression, suicidal or homicidal ideation, hallucinations. PHYSICAL EXAMINATION Vital Signs - 24 hr 07/20/19 19:25 Temperature 98.2 F Pulse Rate 116 H Respiratory 19 Rate Blood Pressure 114/70 O2 Sat by Pulse 99 Oximetry (%) GENERAL: Awake, alert, and oriented x2. In no acute distress. HEAD: Normal with no signs of trauma. EYES: Pupils equal, round and reactive to light, extraocular movements intact, sclera anicteric, conjunctiva clear. No lid lag. EARS, NOSE, THROAT: Ears normal, nares patent, oropharynx clear without exudates. Moist mucous membranes. NECK: Normal range of motion, supple without lymphadenopathy, JVD, or masses. LUNGS: Breath sounds equal, clear to auscultation bilaterally. No wheezes, and no crackles. No accessory muscle use. HEART: Regular rate and rhythm, normal S1 and S2 without murmur, rub or gallop. ABDOMEN: Soft, nontender, not distended, normoactive bowel sounds, no guarding, no rebound, no masses. No hepatomegaly or splenomegaly. MUSCULOSKELETAL: Normal range of motion at all joints. No bony deformities or tenderness. No CVA tenderness. UPPER EXTREMITIES: 2+ pulses, warm, well-perfused. No cyanosis. No clubbing. No peripheral edema. LOWER EXTREMITIES: 2+ pulses, warm, well-perfused. No calf tenderness. No peripheral edema. NEUROLOGICAL: Cranial nerves II-XII intact. Normal speech. Normal gait. Cerebellar exam intact. PSYCHIATRIC: Cooperative. Good eye contact. Appropriate mood and affect. SKIN: Warm, dry, normal turgor, no rashes or lesions noted, normal capillary refill. Laboratory Results - last 24 hr CBC, BMP 07/20/19 20:50 07/20/19 20:50 ASSESSMENT/PLAN: Patient is a 63 y/o female with a history of DM, HTN, HLD, TIA, and osteomylitis who presents with 1 week of altered mental status. #Pre-syncope likely 2/2 dehydration Pt s/p recent untreated UTI UA: 3+ LE, trace ketones Cont 1gm ceftriaxone daily F/u urine and blood cx IV hydration with NS @ 75ml/hr Encourage po intake #IDDM, poorly controlled Hgb A1C 11 in 03/07 Pt takes metformin 500mg daily, lantus 5 units HS and novolog SS at home Cont lantus and SSI during admission #HTN Cont home meds: lisinopril 20mg daily when hemodynamically stable #FEN Diabetic diet IV NS @ 75ml/hr #DVT ppx Heparin SQ TID #Dispo Monitor on emd-surg ATTENDING PHYSICIAN STATEMENT I saw and evaluated the patient. I reviewed the resident's note and discussed the case with the resident. I agree with the resident's findings and plan as documented. SUBJECTIVE: OBJECTIVE: ASSESSMENT AND PLAN:
[2019-07-21 00:08] LABS: URINE RBC 14.8 /hpf (0-4)
[2019-07-21 01:57] VITALS: BMI 20.5
[2019-07-21] MEDS ORDERED: SODIUM CHLORIDE 1,000 ML IV SCH (03:00)
[2019-07-21] MEDS: HEPARIN NA (PORCINE) 5,000 UNITS/ML 1ML VIAL SQ SCH ×3 (06:30→21:50)
[2019-07-21] MEDS: INSULIN SLIDING SCALE (NOVOLOG) 1 VIAL SQ SCH ×3 (06:30→17:09)
[2019-07-21 07:51] LABS: BASO % 0.9 % (0-2.0); EOS % 3.7 % (0-4.5); HEMATOCRIT 30.5 % (32.4-45.2); HEMOGLOBIN 10.9 GM/dL (10.7-15.3); LYMPH % 28.1 % (8-40); MCH 32.7 pg (25.7-33.7); MCHC 35.8 g/dl (32.0-36.0); MEAN CELL VOLUME 91.3 fl (80-96); MEAN PLT VOLUME 10.1 fl (7.5-11.1); MONO % 7.6 % (3.8-10.2); NEUT % 59.7 % (42.8-82.8); PLATELET COUNT 228 K/MM3 (134-434); RBC 3.34 M/mm3 (3.60-5.2); RDW 14.4 % (11.6-15.6)
[2019-07-21 08:22] LABS: ALBUMIN 3.7 g/dl (3.4-5.0); BILIRUBIN,TOTAL 0.7 mg/dL (0.2-1); BLOOD UREA NITROGEN 17.8 mg/dL (7-18); CALCIUM 9.2 mg/dL (8.5-10.1); CREATININE 0.8 mg/dL (0.55-1.3); PHOSPHOROUS 3.7 mg/dL (2.5-4.9); POTASSIUM 3.9 mmol/L (3.5-5.1); TOT PROT 7.2 g/dl (6.4-8.2)
[2019-07-21] MEDS ORDERED: CEFTRIAXONE 1 GM in DEXTROSE 5%-WATER - 50 ML IVPB SCH (10:00)
[2019-07-21] MEDS: ASPIRIN 81 MG CHEWABLE TABLETS PO SCH (10:08)
[2019-07-21] MEDS: PANTOPRAZOLE 40 MG TABLET (FP) PO SCH (10:08)
--- NOTE | 2019-07-21 16:06 | PN ---
Progress Note (short form) - Note Progress Note: SUBJECTIVE: Reported lightheadedness while having a warm shower, now resolved. No chest pain/palpitations/lightheadedness/nausea/vomiting. No LOC. OBJECTIVE: Afebrile, Hemodynamically Stable. Last Vital Signs Temp Pulse Resp BP Pulse Ox 98 F 95 H 20 138/63 98 07/21/19 14:00 07/21/19 14:00 07/21/19 14:00 07/21/19 14:00 07/21/19 00:19 HEENT - Atraumatic, Normocephalic. Heart - S1, S2, RRR Lungs - clear to auscultation Abdomen - Soft, non-tender. Bowel Sounds normal. Extremities - no edema, no calf tenderness. Neuro - AAO x 3. Tone/Power normal all extemities. Laboratory Results - last 24 hr 07/20/19 07/20/19 07/20/19 20:22 20:50 20:50 WBC 9.8 RBC 3.75 Hgb 11.5 Hct 34.4 MCV 91.8 MCH 30.6 MCHC 33.4 RDW 14.5 Plt Count 282 MPV 10.1 Absolute Neuts (auto) 4.2 Neutrophils % 43.1 Lymphocytes % 46.5 H D Monocytes % 6.9 Eosinophils % 2.7 Basophils % 0.8 Nucleated RBC % 0 Sodium 135 L Potassium 4.9 Chloride 101 Carbon Dioxide 26 Anion Gap 8 BUN 22.5 H Creatinine 1.1 Est GFR (CKD-EPI)AfAm 61.44 Est GFR (CKD-EPI)NonAf 53.01 POC Glucometer 142 Random Glucose 155 H Lactic Acid Calcium 10.2 H Phosphorus Magnesium 2.2 Total Bilirubin 0.9 AST 25 ALT 14 Alkaline Phosphatase 63 Troponin I < 0.02 Total Protein 8.4 H Albumin 4.5 TSH Urine Color Urine Appearance Urine pH Ur Specific [place] Urine Protein Urine Glucose (UA) Urine Ketones Urine Blood Urine Nitrite Urine Bilirubin Urine Urobilinogen Ur Leukocyte Esterase Urine WBC (Auto) Urine RBC (Auto) Urine Casts (Auto) U Epithel Cells (Auto) Urine Bacteria (Auto) 07/20/19 07/20/19 07/21/19 21:05 21:44 06:27 WBC RBC Hgb Hct MCV MCH MCHC RDW Plt Count MPV Absolute Neuts (auto) Neutrophils % Lymphocytes % Monocytes % Eosinophils % Basophils % Nucleated RBC % Sodium Potassium Chloride Carbon Dioxide Anion Gap BUN Creatinine Est GFR (CKD-EPI)AfAm Est GFR (CKD-EPI)NonAf POC Glucometer 95 Random Glucose Lactic Acid 1.9 Calcium Phosphorus Magnesium Total Bilirubin AST ALT Alkaline Phosphatase Troponin I Total Protein Albumin TSH Urine Color Yellow Urine Appearance Clear Urine pH 5.0 Ur Specific [place] 1.019 Urine Protein 1+ H Urine Glucose (UA) Negative Urine Ketones Trace H Urine Blood Negative Urine Nitrite Negative Urine Bilirubin Negative Urine Urobilinogen 0.2 Ur Leukocyte Esterase 3+ H Urine WBC (Auto) 56 Urine RBC (Auto) 14.8 Urine Casts (Auto) 16 U Epithel Cells (Auto) 3.3 Urine Bacteria (Auto) 141.3 07/21/19 07/21/19 07/21/19 07:15 07:15 11:55 WBC 6.0 RBC 3.34 L Hgb 10.9 Hct 30.5 L MCV 91.3 MCH 32.7 MCHC 35.8 RDW 14.4 Plt Count 228 MPV 10.1 Absolute Neuts (auto) 3.6 Neutrophils % 59.7 D Lymphocytes % 28.1 D Monocytes % 7.6 Eosinophils % 3.7 Basophils % 0.9 Nucleated RBC % 0 Sodium 139 Potassium 3.9 Chloride 104 Carbon Dioxide 27 Anion Gap 9 BUN 17.8 Creatinine 0.8 Est GFR (CKD-EPI)AfAm 90.30 Est GFR (CKD-EPI)NonAf 77.91 POC Glucometer 110 Random Glucose 94 Lactic Acid Calcium 9.2 Phosphorus 3.7 Magnesium 2.0 Total Bilirubin 0.7 AST 9 L ALT 14 Alkaline Phosphatase 55 Troponin I Total Protein 7.2 Albumin 3.7 TSH 0.91 Urine Color Urine Appearance Urine pH Ur Specific [place] Urine Protein Urine Glucose (UA) Urine Ketones Urine Blood Urine Nitrite Urine Bilirubin Urine Urobilinogen Ur Leukocyte Esterase Urine WBC (Auto) Urine RBC (Auto) Urine Casts (Auto) U Epithel Cells (Auto) Urine Bacteria (Auto) Current Medications Generic Name Dose Route Start Last Admin Trade Name Freq PRN Reason Stop Dose Admin Aspirin 81 mg 07/21/19 10:00 07/21/19 10:08 Asa - PO 81 mg DAILY DMITRY Administration Atorvastatin Calcium 40 mg 07/21/19 22:00 Lipitor - PO HS [facility] Heparin Sodium (Porcine) 5,000 unit 07/21/19 06:00 07/21/19 13:30 Heparin - SQ 5,000 unit TID DMITRY Administration Sodium Chloride 1,000 mls @ 75 mls/hr 07/21/19 03:00 07/21/19 03:29 Normal Saline - IV 75 mls/hr ASDIR DMITRY Administration Insulin Aspart 1 vial 07/21/19 07:00 07/21/19 11:57 Novolog Vial Sliding Scale - SQ Not Given TIDAC [facility] Protocol Insulin Detemir 5 units 07/21/19 22:00 Levemir Vial SQ HS [facility] Pantoprazole Sodium 40 mg 07/21/19 10:00 07/21/19 10:08 Protonix - PO 40 mg DAILY DMITRY Administration Home Medications Medication Instructions Recorded Aspirin [ASA -] 81 mg PO DAILY 08/01/17 Atorvastatin Ca [Lipitor] 40 mg PO HS #30 tablet 08/02/17 Lactobacillus Acidophilus [Bacid -] 1 tab PO BID 06/21/19 Insulin (Novolog) [Novolog -] 0 units SQ ASDIR #3 vial 06/22/19 Insulin Glargine,Hum.rec.anlog 5 unit SQ HS #1 vial 06/22/19 [Lantus] Lisinopril [Prinivil] 20 mg PO DAILY #30 tablet 06/22/19 Pantoprazole Sodium [Protonix] 40 mg PO DAILY #30 tablet. 06/22/19 metFORMIN XR [Glucophage Xr -] 500 mg PO DAILY@0700 #30 tab.sr.24h 06/22/19 ASSESSMENT/PLAN: 63 year old female with history of DM 2, HTM, HLD, Hx TIA, presents with lightheadedness during warm shower,on background history of generalized weakness /myalgia and decreased appetite. No fever/chills/abdominal pain/nausea/vomiting/ cough/sputum/diarrhea. 1. Pre-Syncope Echo - normal sinus rhythm. troponin neg. TSH wnl. Possibly sec to hypotension due to dehydration and vasodilation from warm shower Received IV hydration overnight Symptoms resolved. Needs 24 hr telemonitoring prior to discharge to exclude arrhythmia. Last Echo 08/05 - normal. ca have repeat Echo as out-patient. Tolerating oral intake. PT eval. 2. DM 2 - Glargine/Novolog sliding scale. Metformin held. 3. HTN - BP monitored of Lisinopril. 4. HLD - on Statin. DVT Px - Heparin SQ. Visit type - Emergency Visit Emergency Visit: Yes ED Registration Date: 07/20/19 Care time: The patient presented to the Emergency Department on the above date and was hospitalized for further evaluation of their emergent condition. - New Patient This patient is new to me today: Yes Date on this admission: 07/21/19 - Critical Care Critical Care patient: No - Discharge Referral Referred to [facility] No
[2019-07-21] MEDS ORDERED: ATORVASTATIN CA 40 MG TABLET (FP) PO SCH (22:00)
[2019-07-21] MEDS ORDERED: INSULIN (LEVEMIR) 100 UNITS/ML UNITS SQ SCH (22:00)
[2019-07-22] MEDS: INSULIN SLIDING SCALE (NOVOLOG) 1 VIAL SQ SCH ×2 (06:38→13:05)
[2019-07-22] MEDS: HEPARIN NA (PORCINE) 5,000 UNITS/ML 1ML VIAL SQ SCH (06:38)
--- NOTE | 2019-07-22 08:46 | PN ---
Teaching Attending Note Name of Resident: Liseth March ATTENDING PHYSICIAN STATEMENT I saw and evaluated the patient. I reviewed the resident's note and discussed the case with the resident. I agree with the resident's findings and plan as documented. SUBJECTIVE: Reported lightheadedness while having a warm shower, now resolved, no further episodes. No chest pain/palpitations/lightheadedness/nausea/ vomiting. No LOC. OBJECTIVE: Afebrile, Hemodynamically Stable. Last Vital Signs Temp Pulse Resp BP Pulse Ox 98.3 F 90 18 99/64 99 07/22/19 05:57 07/22/19 05:57 07/22/19 05:57 07/22/19 05:57 07/21/19 21:00 HEENT - Atraumatic, Normocephalic. Heart - S1, S2, RRR Lungs - clear to auscultation Abdomen - Soft, non-tender. Bowel Sounds normal. Extremities - no edema, no calf tenderness. Neuro - AAO x 3. Tone/Power normal all extremities. Laboratory Results - last 24 hr 07/21/19 07/21/19 07/21/19 11:55 17:08 21:45 POC Glucometer 110 164 115 07/22/19 06:27 POC Glucometer 84 Current Medications Generic Name Dose Route Start Last Admin Trade Name Daniela PRN Reason Stop Dose Admin Aspirin 81 mg 07/21/19 10:00 07/21/19 10:08 Asa - PO 81 mg DAILY DMITRY Administration Atorvastatin Calcium 40 mg 07/21/19 22:00 07/21/19 21:50 Lipitor - PO 40 mg HS DMITRY Administration Heparin Sodium (Porcine) 5,000 unit 07/21/19 06:00 07/22/19 06:38 Heparin - SQ 5,000 unit TID DMITRY Administration Insulin Aspart 1 vial 07/21/19 07:00 07/22/19 06:38 Novolog Vial Sliding Scale - SQ Not Given TIDAC [facility] Protocol Insulin Detemir 5 units 07/21/19 22:00 07/21/19 21:52 Levemir Vial SQ 5 units HS DMITRY Administration Pantoprazole Sodium 40 mg 07/21/19 10:00 07/21/19 10:08 Protonix - PO 40 mg DAILY DMITRY Administration Home Medications Medication Instructions Recorded Aspirin [ASA -] 81 mg PO DAILY 08/01/17 Atorvastatin Ca [Lipitor] 40 mg PO HS #30 tablet 08/02/17 Lactobacillus Acidophilus [Bacid -] 1 tab PO BID 06/21/19 Insulin (Novolog) [Novolog -] 0 units SQ ASDIR #3 vial 06/22/19 Insulin Glargine,Hum.rec.anlog 5 unit SQ HS #1 vial 06/22/19 [Lantus] Lisinopril [Prinivil] 20 mg PO DAILY #30 tablet 06/22/19 Pantoprazole Sodium [Protonix] 40 mg PO DAILY #30 tablet.dr 06/22/19 metFORMIN XR [Glucophage Xr -] 500 mg PO DAILY@0700 #30 tab.sr.24h 06/22/19 ASSESSMENT/PLAN: 63 year old female with history of DM 2, HTM, HLD, Hx TIA, presents with lightheadedness during warm shower,on background history of generalized weakness /myalgia and decreased appetite. No fever/chills/abdominal pain/nausea/vomiting/ cough/sputum/diarrhea. 1. Pre-Syncope ECG - normal sinus rhythm. Troponin neg. TSH wnl. Lightheadedness possibly sec to hypotension due to dehydration and vasodilation from warm shower Symptoms resolved with IV hydration No arrythmia on tele except for mild intermittent sinus tacycardia, now HR 90 Last Echo 08/05 - normal. Can have repeat Echo as out-patient. Tolerating oral intake. PT evaluated and patient ambulating safely with cane, optimized for discharge 2. DM 2 - resume Metformin and home Insulin regimen on discharge. 3. HTN - BP borderline off Lisinopril - will hold Lisinopril on discharge. BP monitoring on follow up with PCP and slow reintroduction of LUKAS-I as an out- patinet if tolerated/needed. 4. HLD - on Statin. Medically optimized for discharge. Counselled regarding importance of oral fluid intake and maintenance of adequate hydration. PCP follow up - can have repeat Echo as out-patient.
[2019-07-22] MEDS ORDERED: SODIUM CHLORIDE 500 ML IV STA (08:48)
[2019-07-22] MEDS: ASPIRIN 81 MG CHEWABLE TABLETS PO SCH (09:16)
[2019-07-22] MEDS: PANTOPRAZOLE 40 MG TABLET (FP) PO SCH (09:16)
--- NOTE | 2019-07-22 13:48 | DS ---
Physical Exam: SUBJECTIVE: Patient seen and examined at bedside this morning. No acute events overnight. No events on tele. Patient reports feeling well and denies any fever , chills, headache, dizziness, chest pain, SOB,abdominal pain, diarrhea, urinary symptoms. OBJECTIVE: Vital Signs Temperature 98.5 F 07/22/19 13:47 Pulse Rate 96 H 07/22/19 13:47 Respiratory Rate 18 07/22/19 13:47 Blood Pressure 124/77 07/22/19 13:47 O2 Sat by Pulse Oximetry (%) 100 07/22/19 09:00 PHYSICAL EXAM GENERAL: The patient is awake, alert, and fully oriented, in no acute distress. HEAD: Normal with no signs of trauma. EYES: PERRLA, EOMI, sclera anicteric, conjunctiva clear. ENT: Ears normal, nares patent, oropharynx clear without exudates, moist mucous membranes. NECK: Trachea midline, full range of motion, supple. LUNGS: Breath sounds equal, clear to auscultation bilaterally. HEART: Regular rate and rhythm, S1, S2 without murmur, rub or gallop. ABDOMEN: Soft, nontender, nondistended, normoactive bowel sounds. EXTREMITIES: 2+ pulses, warm, well-perfused, no edema. NEUROLOGICAL: Cranial nerves II through XII grossly intact. Normal speech, gait not observed. PSYCH: Normal mood, normal affect. SKIN: Warm, dry, normal turgor, no rashes or lesions noted. LABS Laboratory Results - last 24 hr 07/21/19 07/21/19 07/22/19 17:08 21:45 06:27 POC Glucometer 164 115 84 07/22/19 11:18 POC Glucometer 182 HOSPITAL COURSE: Date of Admission:07/20/19 Date of Discharge: 07/22/19 Patient is a 63 year old female with history of DM 2, HTM, HLD, Hx TIA, presents with lightheadedness during warm shower,on background history of generalized weakness/myalgia and decreased appetite. Patient was evaluated for pre-syncope. EKG showed NSR, troponins and TSH within normal limits. Patient was placed on tele for cardiac monitoring. Patient was given IV fluids and reported no more episodes of lightheadedness since admission. Patient was discharged with instructions to follow up with PCP and counselled regarding importance of oral fluid intake. Minutes to complete discharge: 37 Discharge Summary Problems reviewed: Yes Reason For Visit: UTI/INSULIN DEPENDENT DIABETEES MELLITUS/ Current Active Problems Dizziness (Acute) UTI (urinary tract infection) (Acute) Condition: Improved - Instructions Diet, Activity, Other Instructions: Your visit You were admitted to the hospital because you had an episode of lightheadedness at home. Several labs and a head CAT scan was done which did not reveal any acute problem. You were placed on heart monitoring to check for any abnormal heart rhythm, and was noted to be normal. Your lightheadedness was likely due to dehydration. You were given IV Fluids. Please eat a healthy diet and drink plenty of water. Medications Please STOP taking Lisinopril. Please follow up with your primary care doctor to have your blood pressure checked and when to resume the Lisinopril. Please continue all your home medications. Follow up Please follow up with your primary care doctor (Dr. Santana) within 1 week. Additional info Please call 911 or go to the ED if with any worsening fevers, chills, headache, dizziness, chest pain, shortness of breath, abdominal pain or any new concerns noted. Referrals: Juliann Santana MD [Primary Care Provider] - Disposition: HOME - Home Medications Comprehensive Discharge Medication List: Ambulatory Orders Aspirin [ASA -] 81 mg PO DAILY 08/01/17 Atorvastatin Ca [Lipitor] 40 mg PO HS #30 tablet 08/02/17 Lactobacillus Acidophilus [Bacid -] 1 tab PO BID 06/21/19 Insulin (Novolog) [Novolog -] 0 units SQ ASDIR #3 vial 06/22/19 Insulin Glargine,Hum.rec.anlog [Lantus] 5 unit SQ HS #1 vial 06/22/19 Pantoprazole Sodium [Protonix] 40 mg PO DAILY #30 tablet. 06/22/19 metFORMIN XR [Glucophage Xr -] 500 mg PO DAILY@0700 #30 tab.sr.24h 06/22/19 This patient is new to me today: No Emergency Visit: Yes ED Registration Date: 07/20/19 Care time: The patient presented to the Emergency Department on the above date and was hospitalized for further evaluation of their emergent condition. Critical Care patient: No - Discharge Referral Referred to [facility] No ATTENDING PHYSICIAN STATEMENT I saw and evaluated the patient. I reviewed the resident's note and discussed the case with the resident. I agree with the resident's findings and plan as documented. SUBJECTIVE: OBJECTIVE: ASSESSMENT AND PLAN:
[2019-07-22 13:49] VITALS: BP 124/77; PULSE 96; TEMP 98.5
--- NOTE | 2019-07-23 10:58 | EKG ---
Test Reason : Blood Pressure : / mmHG Vent. Rate : 103 BPM Atrial Rate : 103 BPM P-R Int : 168 ms QRS Dur : 072 ms QT Int : 348 ms P-R-T Axes : 068 047 065 degrees QTc Int : 455 ms SINUS TACHYCARDIA NONSPECIFIC T WAVE ABNORMALITY ABNORMAL ECG WHEN COMPARED WITH ECG OF 19-JUN-2019 01:58, NO SIGNIFICANT CHANGE WAS FOUND Confirmed by WALTER CASILLAS MD ([id number]) on 07/23/2019 10:58:03 AM Referred By: Confirmed By:WALTER CASILLAS MD
== END 2019-07-22 18:54 | disposition home or self-care (01) | DRG 422 ==
LOC: JER 19:22 → JERBED 22:52 → J8W 07-21 00:46 → J4W 07-21 17:35
PROVIDERS: ADMIT Internal Medicine
DX: E86.0 Dehydration (principal); N39.0 Urinary tract infection, site not specified; I95.9 Hypotension, unspecified; Z79.4 Long term (current) use of insulin; E78.5 Hyperlipidemia, unspecified; R55 Syncope and collapse; R42 Dizziness and giddiness; E11.65 Type 2 diabetes mellitus with hyperglycemia; R62.7 Adult failure to thrive; R00.0 Tachycardia, unspecified; I10 Essential (primary) hypertension
CPT/HCPCS: 36415; 71045-TC-FY; 80053; 81003; 82962; 83605; 83735; 84100; 84443; 84484; 85025; 87086; 93005; 93010; 97116-GP; 97161-GP; 99285-25; J1644; J7030

== ENCOUNTER 2020-03-10 16:28 | Inpatient (IN) | payer OTHER ==
--- NOTE | 2020-03-10 16:53 | PDOC ---
History of Present Illness - General Chief Complaint: Wound Stated Complaint: WOUND Time Seen by Provider: 03/10/20 16:53 History Source: Patient Exam Limitations: No Limitations - History of Present Illness Initial Comments: Pt is a 64 yo F, with PMH of poorly controlled IDDM (prior osteomyelitis and foot abscesses, last A1C 11.4), HTN, HLD, and TIA, who is presenting with comp laints of toe wounds and change of color to the toes on both feet. Pt states starting last week she noticed her toes becoming darker, and the skin on the top of the toes began to open a few days ago, with drainage of a small amount of bloody fluid. Pt states she has not taken her insulin in over a month and has not checked her sugar for months. Pt denies any pain in the feet, but states she has sensation with no parasthesia or numbness. Pt denies any fevers/chills, headache, vision changes, syncope, chest pain, palpitations, SOB, nausea/vomiting, abdominal pain, urinary symptoms, diarrhea/constipation, or leg swelling. Allergies: NKDA PCP: Dr. Mancera Wound Care: Dr. Singh Social: Pt denies any cigarette, alcohol, or drug use. Pt denies any recent travel or sick contacts. Surgical: multiple I&D b/l feet Family: no relevant history. 03/10/20 17:56 03/10/20 18:19 Past History - Travel History Traveled outside of the country in the last 30 days: No Close contact w/someone who was outside of country & ill: No - Medical History Allergies/Adverse Reactions: Allergies Allergy/AdvReac Type Severity Reaction Status Date / Time lactose AdvReac Verified 03/10/20 16:30 Home Medications: Ambulatory Orders Aspirin [ASA -] 81 mg PO DAILY 08/01/17 Atorvastatin Ca [Lipitor] 40 mg PO HS #30 tablet 08/02/17 Lactobacillus Acidophilus [Bacid -] 1 tab PO BID 06/21/19 Insulin (Novolog) [Novolog -] 0 units SQ ASDIR #3 vial 06/22/19 Insulin Glargine,Hum.rec.anlog [Lantus] 5 unit SQ HS #1 vial 06/22/19 Pantoprazole Sodium [Protonix] 40 mg PO DAILY #30 tablet. 06/22/19 metFORMIN XR [Glucophage Xr -] 500 mg PO DAILY@0700 #30 tab.sr.24h 06/22/19 Anemia: No Asthma: No Cancer: No Cardiac Disorders: Yes (ANGINA) CVA: No COPD: No CHF: No Diabetes: Yes (IDDM) GI Disorders: No Disorders: No HTN: Yes Hypercholesterolemia: Yes Liver Disease: No Psychiatric Problems: Yes (depression/ ANXIETY) Seizures: No Thyroid Disease: No - Surgical History Orthopedic Surgery: Yes - Immunization History Immunization Up to Date: Yes - Psycho-Social/Smoking History Smoking Status: No Smoking History: Never smoked Have you smoked in the past 12 months: No Number of Cigarettes Smoked Daily: 0 Cigars Per Day: 0 - Substance Abuse Hx (Audit-C & DAST Scrn) How often the patient has a drink containing alcohol: Never Score: In Men: 4 or > Positive; In Women: 3 or > Positive: 0 Screen Result (Pos requires Nsg. Audit-10AR): Negative In the last yr the pt used illegal drug/Rx for NonMed reason: No Score: Yes response is considered Positive: 0 Screen Result (Positive result requires Nsg. DAST-10): Negative Review of Systems - Review of Systems Able to Perform ROS?: Yes Is the patient limited Welsh proficient: No Constitutional: Yes: Weight Stable. No: Chills, Diaphoresis, Fever, Loss of Appetite, Malaise, Weakness HEENTM: No: Recent change in vision, Nose Congestion, Throat Pain, Throat Swelling, Difficulty Swallowing Respiratory: No: Cough, Orthopnea, Shortness of Breath Cardiac (ROS): No: Chest Pain, Edema, Irregular Heart Rate, Lightheadedness, Palpitations, Syncope, Chest Tightness ABD/GI: No: Constipated, Diarrhea, Nausea, Poor Appetite, Poor Fluid Intake, Vomiting : No: Burning, Dysuria, Frequency, Hematuria, Pain, Urgency Musculoskeletal: No: Back Pain, Joint Pain, Muscle Weakness Integumentary: Yes: See HPI, Change in Color. No: Rash Neurological: No: Headache, Numbness, Weakness, Dizziness Psychiatric: No: Sleep Pattern Change, Change in Appetite Endocrine: No: Increased Urine, Change in Weight Hematologic/Lymphatic: No: Anemia, Blood Clots, Easy Bleeding, Easy Bruising All Other Systems: Reviewed and Negative *Physical Exam - Vital Signs Last Vital Signs Temp Pulse Resp BP Pulse Ox 98.6 F 96 H 16 117/66 100 03/10/20 16:30 03/10/20 16:30 03/10/20 16:30 03/10/20 16:30 03/10/20 16:30 - Physical Exam Borderline tachycardia, pt afebrile. Pt in NAD, normal body habitus. Pt alert and oriented x3. production associate generally intact, muscular strength and sensation intact. No midline spinal tenderness, step-offs, or crepitus. Head normocephalic, atraumatic. Eyes PERRLA, EOMI. Oropharynx without erythema or exudates, no LAD b/l. No nasal congestion. Hearing intact. Clear heart sounds, S1/S2, no JVD, b/l pedal edema, or heart murmur. Clear lung sounds, no respiratory distress, wheezes, crackles, or accessory muscle use. No abdominal or CVA tenderness to palpation, no rebound, no guarding. Abdomen soft, non-distended, and with normoactive bowel sounds. R 2nd, 3rd, and 4th toes and L 3rd and 4th toe with dusky discoloration and open skin tears on dorsal side of toes. Dry with no active drainage or overlying erythema. Skin otherwise without jaundice or rash. +DP pulses intact b/l. 03/10/20 18:12 03/10/20 18:19 ED Treatment Course - LABORATORY CBC & Chemistry Diagram: 03/10/20 18:12 03/10/20 18:12 Medical Decision Making - Medical Decision Making Pt was seen at bedside, also will be seen by attending Dr. Connors. Pt presenting with b/l toe ulcerations likely complication of poorly controlled hyperglycemia. Dusky discoloration and ulceration concerning for dry gangrene. Will evaluate for osteo and DKA given no recent insulin use and ulceration of toes. Will continue to reassess pt and monitor for symptomatic improvement. 03/10/20 18:21 CBC WNL CMP with mildly elevated BUN from baseline, pt tolerating PO fluid ESR elevated, CRP WNL Blood glucose elevated without evidence of DKA Foot x-rays with no evidence of osteomyelitis Providing IV clindamycin due to uncontrolled DM and open ulcerations Paged hospitalist team for admission. Concern for uncontrolled DM, open ulcerations on feet and limited f/u with wound care. Concern that pts can lose digits in both feet. 03/10/20 20:03 Discharge - Discharge Information Problems reviewed: Yes Clinical Impression/Diagnosis: Gangrene Diabetic toe ulcer Qualifiers: Diabetes mellitus type: type 2 Laterality: unspecified laterality Non-pressure ulcer stage: unspecified non-pressure ulcer stage Qualified Code(s): E11.621 - Type 2 diabetes mellitus with foot ulcer; L97.509 - Non-pressure chronic ulcer of other part of unspecified foot with unspecified severity Uncontrolled diabetes mellitus Qualifiers: Diabetes mellitus type: type 2 Glycemic state: with hyperglycemia Qualified Code(s): E11.65 - Type 2 diabetes mellitus with hyperglycemia Condition: Stable - Admission Yes - Follow up/Referral Referrals: Belinda Mancera MD [Primary Care Provider] - - Patient Discharge Instructions - Post Discharge Activity
--- NOTE | 2020-03-10 18:17 | PDOC ---
Documentation entered by Vianey Luke SCRIBE, acting as scribe for Prabha Connors MD. Prabha Connors MD: This documentation has been prepared by the loreibmadisyn, Vianey Mcintyre SCRIBE, under my direction and personally reviewed by me in its entirety. I confirm that the documentation accurately reflects all work, treatment, procedures, and medical decision making performed by me. Attending Attestation - Resident Resident Name: BrianJael - ED Attending Attestation I have performed the following: I have examined & evaluated the patient, The case was reviewed & discussed with the resident, I agree w/resident's findings & plan, Exceptions are as noted - HPI HPI: 03/10/20 18:06 The patient is a 64 year old female with a significant past medical history of IDDM, HTN, HLD, TIA, and osteomyelitis who presents to the emergency department with wounds to her toes. Patient also notes a change in color to the toes on both feet. She denies recent fevers, chills, headache or dizziness. She denies recent nausea, vomit, diarrhea or constipation. She denies recent dysuria, frequency, urgency or hematuria. She denies recent chest pain or shortness of breath. - Physicial Exam PE: 03/10/20 18:14 64 yo female with normal body habitus has c/o darkening toes head ncat neck supple'lungs cta b/l cvs [id number] lungs cta b/l abd nontender skin no jaundice, no vesicles extremites toes are necrotic neuro axox3 - Medical Decision Making 03/10/20 19:44 03/10/20 19:46 03/10/20 19:52 imp: necrotic toes/diabetes plan clindamycin/admit 03/10/20 20:02 Discharge - Discharge Information Problems reviewed: Yes Clinical Impression/Diagnosis: Gangrene Diabetic toe ulcer Qualifiers: Diabetes mellitus type: type 2 Laterality: unspecified laterality Non-pressure ulcer stage: unspecified non-pressure ulcer stage Qualified Code(s): E11.621 - Type 2 diabetes mellitus with foot ulcer Uncontrolled diabetes mellitus Qualifiers: Diabetes mellitus type: type 2 Glycemic state: with hyperglycemia Qualified Code(s): E11.65 - Type 2 diabetes mellitus with hyperglycemia Condition: Stable - Follow up/Referral Referrals: Belinda Mancera MD [Primary Care Provider] - - Patient Discharge Instructions - Post Discharge Activity
[2020-03-10 18:23] LABS: BASO % 0.9 % (0-2.0); EOS % 2.1 % (0-4.5); HEMATOCRIT 33.4 % (32.4-45.2); HEMOGLOBIN 11.2 GM/dL (10.7-15.3); LYMPH % 40.9 % (8-40); MCH 31.4 pg (25.7-33.7); MCHC 33.4 g/dl (32.0-36.0); MEAN CELL VOLUME 94.1 fl (80-96); MEAN PLT VOLUME 10.5 fl (7.5-11.1); NEUT % 50.1 % (42.8-82.8); PLATELET COUNT 254 K/MM3 (134-434); RBC 3.55 M/mm3 (3.60-5.2); RDW 13.5 % (11.6-15.6); WHITE BLOOD COUNT 7.3 K/mm3 (4.0-10.0)
[2020-03-10 18:38] LABS: INR 0.92 (0.83-1.09); PROTHROMBIN TIME (PATIENT) 10.9 SEC (9.7-13.0)
[2020-03-10 18:53] LABS: ALBUMIN 4.1 g/dl (3.4-5.0); BILIRUBIN,TOTAL 0.7 mg/dL (0.2-1); CALCIUM 9.7 mg/dL (8.5-10.1); POTASSIUM 5.3 mmol/L (3.5-5.1); TOT PROT 8.5 g/dl (6.4-8.2)
[2020-03-10] MEDS ORDERED: CLINDAMYCIN 600MG PREMIX IVPB 600 MG/50 ML BAG IVPB ONE ×2 (20:00→20:09)
--- NOTE | 2020-03-10 20:41 | PN ---
Teaching Attending Note Name of Resident: Ritesh Head ATTENDING PHYSICIAN STATEMENT I saw and evaluated the patient. I reviewed the resident's note and discussed the case with the resident. I agree with the resident's findings and plan as documented. SUBJECTIVE: Patient is a 64 year old woman with a PMH of poorly controlled IDDM, Osteomye litis, Foot abscesses, HTN, HLD and TIA who is presenting with complaints of toe wounds and change of color to the toes on both feet. Patient states starting last week she noticed her toes becoming darker, and the skin on the top of the toes began to open a few days ago, with drainage of a small amount of bloody fluid. Patient says she has not taken her insulin in over a month and has not checked her sugar for months. Denies any pain in the feet, but states she has sensation with no parasthesia or numbness. Patient denies fevers, chills, headache, vision changes, syncope, chest pain, palpitations, SOB, nausea, vomiting, abdominal pain, dysuria, frequency, diarrhea or constipation. Denies alcohol, tobacco or illicit drug use. No sick contacts or recent travels. Family history is unremarkable. OBJECTIVE: Alert Vital Signs Period Temp Pulse Resp BP Sys/H[place]go Pulse Ox Last 24 Hr 98.6 F 88-96 16-18 117-138/66-73 98-100 HEENT: No Jaundice, eye redness or discharge, PERRLA, EOMI. Normocephalic, atraumatic. External ears are normal and hearing is grossly intact. No nasal discharge. Neck: Supple, nontender. No palpable adenopathy or thyromegaly. No JVD Chest: Good effort. Clear to auscultation and percussion. Heart: Regular. No S3, rub or murmur Abdomen: Not distended, soft, nontender and no HSM. No rebound or guarding. Normal bowel sounds. Ext: Peripheral pulses intact. No leg edema. Desquamating necrotic ulcers on the dorsum of multiple toes on both feet. Skin: Warm and dry. No petechiae, rash or ecchymosis. Neuro: Alert. Oriented x3. CN 2-12 grossly intact. Sensation grossly intact in all four extremities and DTR are symmetric. Psych: Appropriate mood and affect. Good insight. Home Medications Medication Instructions Recorded Aspirin [ASA -] 81 mg PO DAILY 08/01/17 Atorvastatin Ca [Lipitor] 40 mg PO HS #30 tablet 08/02/17 Lactobacillus Acidophilus [Bacid -] 1 tab PO BID 06/21/19 Insulin (Novolog) [Novolog -] 0 units SQ ASDIR #3 vial 06/22/19 Insulin Glargine,Hum.rec.anlog 5 unit SQ HS #1 vial 06/22/19 [Lantus] Pantoprazole Sodium [Protonix] 40 mg PO DAILY #30 tablet. 06/22/19 metFORMIN XR [Glucophage Xr -] 500 mg PO DAILY@0700 #30 tab.sr.24h 06/22/19 Abnormal Lab Results 03/10/20 03/10/20 03/10/20 18:12 18:12 18:12 RBC 3.55 L Lymphocytes % 40.9 H D ESR 65 H Potassium 5.3 H Anion Gap 5 L BUN 24.0 H Random Glucose 261 H Total Protein 8.5 H ASSESSMENT AND PLAN: 1. Infected diabetic foot ulcers - Foot xray do not show any radiographic evidence of osteomyelitis, no fracture or gas collection. Patient will be treated with IV Vancomycin. Will consult ID, Podiatry and Wound care service. No acute abnormality on CXR. Viral testing for COVID-19 ordered and patient placed on airborne, droplet and contact isolation. EKG shows NSR at 93/minute and QTc 425, and old inferolateral ST-T wave abnormalities. Mild hyperkalemia likely partly due to hyperglycemia. Will hydrate with IV NS to enhance K+ excretion and correct hyperglycemia. Will continue comprehensive care for all of patients comorbid conditions. 2. Uncontrolled DM Nonadherence is a major issue. Patient not forthcoming on why she stopped insulin for one month. However this suggests that her diabetes may be managed with just oral agents - avoiding insulin to enhance adherence. Consult Endocrine and public health social worker. For now, we will hold the home diabetes drugs and implement sliding scale insulin regimen. Provide comprehensive diabetes care with patient teaching and counseling about the importance of adherence to prescribed diabetes regimen, euglycemia, eye care and foot care. 3. Hypertension Does not appear to be on an ACEI or ARB. Will get urine protein/creatinine ratio and get uptodate drug list from her Pharmacy. Subsequently, will revise regimen to ensure [id number] excellent BP control. Patient counseled on the injurious effects of uncontrolled hypertension. Nonpharmacologic measures to control hypertension like weight loss, salt restriction and exercise stressed. Importance of adherence to treatment regimen and attainment of normotension emphasized. 4. DVT prophylaxis - Lovenox 40 mg SQ q 24 hours. 5. Advance directives - Full code
--- NOTE | 2020-03-10 21:06 | HP ---
CHIEF COMPLAINT: discoloration of foot wounds PCP: Calderon HISTORY OF PRESENT ILLNESS: 64F w/ pmh of HTN, HLD, TIA, Left foot OM(Aug 2016), Right foot OM(February 2019 sp ceftriaxone x6wk, HBO), uncontrolled IDDM presented to [facility] with complaint of discoloration of b/l foot wounds. Had wounds x1week with gradual darkening of dorsal surface. No drainage, or foul smell. Denies recent trauma. Denies pain, numbness, shooting sensation. Has foot orthotics but rarely uses them, instead opting for her sneakers. Hasn't taken insulin for over a month. Has a glucose monitoring kit but doesn't check her daily BGM. Doesn't see her doctors on a regular basis. Hasn't seen Dr Singh since last Fall. Hasn't seen an opht halmologist in years. 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 Lives a house with her daughter. ER course was notable for: (1) glu 261, CRP <0.3, ESR 65 (2) XR b/l Feet: neg soft tissue air accumulation, neg signs of osteomyelitis (3) clindamycin Recent Travel: none PAST MEDICAL HISTORY: as above PAST SURGICAL HISTORY: none Social History: Smoking: denies Alcohol: denies Drugs: denies Allergies lactose Adverse Reaction (Verified 03/10/20 16:30) HOME MEDICATIONS: Home Medications Medication Instructions Recorded Aspirin [ASA -] 81 mg PO DAILY 08/01/17 Atorvastatin Ca [Lipitor] 40 mg PO HS #30 tablet 08/02/17 Lactobacillus Acidophilus [Bacid -] 1 tab PO BID 06/21/19 Insulin (Novolog) [Novolog -] 0 units SQ ASDIR #3 vial 06/22/19 Insulin Glargine,Hum.rec.anlog 5 unit SQ HS #1 vial 06/22/19 [Lantus] Pantoprazole Sodium [Protonix] 40 mg PO DAILY #30 tablet. 06/22/19 metFORMIN XR [Glucophage Xr -] 500 mg PO DAILY@0700 #30 tab.sr.24h 06/22/19 REVIEW OF SYSTEMS CONSTITUTIONAL: Absent: fever, chills, diaphoresis, generalized weakness, malaise, loss of appetite, weight change HEENT: chronic Left eye vision deficits Absent: rhinorrhea, nasal congestion, throat pain, throat swelling, difficulty swallowing, mouth swelling, ear pain, eye pain, visual changes CARDIOVASCULAR: Absent: chest pain, syncope, palpitations, irregular heart rate, lightheadedness, peripheral edema RESPIRATORY: Absent: cough, shortness of breath, dyspnea with exertion, orthopnea, wheezing, stridor, hemoptysis GASTROINTESTINAL: Absent: abdominal pain, abdominal distension, nausea, vomiting, diarrhea, constipation, melena, hematochezia GENITOURINARY: Absent: dysuria, frequency, urgency, hesitancy, hematuria, flank pain, genital pain MUSCULOSKELETAL: Absent: myalgia, arthralgia, joint swelling, back pain, neck pain SKIN: Absent: rash, itching, pallor HEMATOLOGIC/IMMUNOLOGIC: Absent: easy bleeding, easy bruising, lymphadenopathy, frequent infections ENDOCRINE: Absent: unexplained weight gain, unexplained weight loss, heat intolerance, cold intolerance NEUROLOGIC: Absent: headache, focal weakness or paresthesias, dizziness, unsteady gait, seizure, mental status changes, bladder or bowel incontinence PSYCHIATRIC: Absent: anxiety, depression, suicidal or homicidal ideation, hallucinations. PHYSICAL EXAMINATION Vital Signs - 24 hr 03/10/20 03/10/20 16:30 19:59 Temperature 98.6 F Pulse Rate 96 H Pulse Rate [ 88 Left Radial] Respiratory 16 18 Rate Blood Pressure 117/66 Blood Pressure 138/73 [Left Arm] O2 Sat by Pulse 100 98 Oximetry (%) GENERAL: Awake, alert, and fully oriented, in no acute distress. HEAD: NC/AT EYES: sclera anicteric, conjunctiva clear. No lid lag. EARS, NOSE, THROAT: Ears normal, nares patent, oropharynx clear without exudates. Moist mucous membranes. NECK: Normal range of motion, supple without lymphadenopathy, JVD, or masses. LUNGS: Breath sounds equal, clear to auscultation bilaterally. No wheezes, and no crackles. No accessory muscle use. HEART: Regular rate and rhythm, normal S1 and S2 without murmur, rub or gallop. ABDOMEN: Soft, nontender, not distended, no guarding, no rebound, no masses. MUSCULOSKELETAL: Normal range of motion at all joints. No bony deformities or tenderness. UPPER EXTREMITIES: 2+ pulses, warm, well-perfused. No cyanosis. No clubbing. No peripheral edema. LOWER EXTREMITIES: 1+ DP pulses, warm, well-perfused. No calf tenderness. No peripheral edema. Right foot with plantar surface ulcerations(2nd, 3rd, 4th digit). Left foot w/ plantar surface ulerations(3rd, 4th, 5th). No active drainage. Normal capillary refill to toenails. Sensation intact throughout BLE NEUROLOGICAL: Cranial nerves II-XII intact. Normal speech. Laboratory Results - last 24 hr 03/10/20 03/10/20 03/10/20 17:32 18:12 18:12 WBC RBC Hgb Hct MCV MCH MCHC RDW Plt Count MPV Absolute Neuts (auto) Neutrophils % Lymphocytes % Monocytes % Eosinophils % Basophils % Nucleated RBC % ESR 65 H PT with INR INR PTT (Actin FS) Sodium Potassium Chloride Carbon Dioxide Anion Gap BUN Creatinine Est GFR (CKD-EPI)AfAm Est GFR (CKD-EPI)NonAf POC Glucometer 269 Random Glucose Calcium Total Bilirubin AST ALT Alkaline Phosphatase C-Reactive Protein Cancelled Total Protein Albumin Beta-Hydroxybutyrate 03/10/20 03/10/20 03/10/20 18:12 18:12 18:12 WBC 7.3 RBC 3.55 L Hgb 11.2 Hct 33.4 MCV 94.1 MCH 31.4 MCHC 33.4 RDW 13.5 Plt Count 254 MPV 10.5 Absolute Neuts (auto) 3.7 Neutrophils % 50.1 Lymphocytes % 40.9 H D Monocytes % 6.0 Eosinophils % 2.1 Basophils % 0.9 Nucleated RBC % 0 ESR PT with INR 10.90 INR 0.92 PTT (Actin FS) Sodium Potassium Chloride Carbon Dioxide Anion Gap BUN Creatinine Est GFR (CKD-EPI)AfAm Est GFR (CKD-EPI)NonAf POC Glucometer Random Glucose Calcium Total Bilirubin AST ALT Alkaline Phosphatase C-Reactive Protein < 0.3 Total Protein Albumin Beta-Hydroxybutyrate 1.8 03/10/20 03/10/20 18:12 18:12 WBC RBC Hgb Hct MCV MCH MCHC RDW Plt Count MPV Absolute Neuts (auto) Neutrophils % Lymphocytes % Monocytes % Eosinophils % Basophils % Nucleated RBC % ESR PT with INR INR PTT (Actin FS) 27.2 Sodium 137 Potassium 5.3 H Chloride 102 Carbon Dioxide 30 Anion Gap 5 L BUN 24.0 H Creatinine 1.0 Est GFR (CKD-EPI)AfAm 68.47 Est GFR (CKD-EPI)NonAf 59.07 POC Glucometer Random Glucose 261 H Calcium 9.7 Total Bilirubin 0.7 AST 27 ALT 18 Alkaline Phosphatase 100 C-Reactive Protein Total Protein 8.5 H Albumin 4.1 Beta-Hydroxybutyrate ASSESSMENT/PLAN: 64F w/ pmh of HTN, HLD, TIA, Left foot OM(Aug 2016), Right foot OM(February 2019 sp ceftriaxone x6wk, HBO), uncontrolled IDDM presented to [facility] with complaint of discoloration of b/l foot wounds. Had wounds x1week with gradual darkening of dorsal surface. No drainage, or foul smell. Admitted for Diabetic Foot Ulcers. #BLE toe diabetic ulcers w/ possible surrounding cellulitis > glu 261, CRP <0.3, ESR 65 > XR b/l Feet: neg soft tissue air accumulation, neg signs of osteomyelitis > Operative Culture(February 2019): Staph Aureus(R to clindamycin, erythromycin) - abx regimen: --ED: sp clindamycin --vancomycin - Podiatry Consult(Samantha): --recs pending #IDDM --medical nonadherence w/ home glargine 5U --- not in DKA > AG 5 > B-hydroxybutyrate 1.8 > HbA1c 11.4(February 2019) - fu HbA1c - ISS - Endo conult([facility]): --recs pending #asymptomatic bacturia --not treating > UA: protien 1+, gluoce 3+, blood 2+, nitrite positve, LE 3+, WBC 2839, bact 4389, epith 26 #ho TIA - cw atorvastatin - cw ASA, but will HOLD if getting I&D FEN - no mIVF - diabetic diet DVT PPX - lovenox Family Medical History Family Hx Diabetes: Mother, Sister Visit type - Emergency Visit Emergency Visit: Yes ED Registration Date: 03/10/20 Care time: The patient presented to the Emergency Department on the above date and was hospitalized for further evaluation of their emergent condition. - New Patient This patient is new to me today: Yes Date on this admission: 03/11/20 - Critical Care Critical Care patient: No ATTENDING PHYSICIAN STATEMENT I saw and evaluated the patient. I reviewed the resident's note and discussed the case with the resident. I agree with the resident's findings and plan as documented. SUBJECTIVE: OBJECTIVE: ASSESSMENT AND PLAN:
[2020-03-10] MEDS ORDERED: VANCOMYCIN 1 GM in D5W (PRE-DOCKED) 1,000 MG/250 ML IVPB SCH (23:00)
[2020-03-10] MEDS: VANCOMYCIN 1 GM in D5W (PRE-DOCKED) 1,000 MG/250 ML IVPB SCH (23:16)
[2020-03-11 01:40] VITALS: BMI 21.0
[2020-03-11 02:30] LABS: EPI CELLS 26 /uL (0-25.1); HYALINE CASTS 17 /uL (0-3.1); URINE APPEARANCE TURBID; URINE BACTERIA 4389 /uL (0-1359); URINE BILIRUBIN NEGATIVE (NEGATIVE); URINE COLOR YELLOW; URINE GLUCOSE (UA) 3+ (NEGATIVE); URINE KETONE NEGATIVE (NEGATIVE); URINE LEUK ESTERASE 3+ (NEGATIVE); URINE NITRITE POSITIVE (NEGATIVE); URINE PROTEIN 1+ (NEGATIVE); URINE WBC 2839 /uL (0-25.8)
[2020-03-11 02:42] LABS: URINE RBC 212 /uL (0-23.9)
[2020-03-11] MEDS: INSULIN SLIDING SCALE (NOVOLOG) 1 VIAL SQ SCH ×4 (06:11→21:46)
[2020-03-11 08:36] LABS: HEMATOCRIT 31.8 % (32.4-45.2); HEMOGLOBIN 10.7 GM/dL (10.7-15.3); MCH 31.5 pg (25.7-33.7); MCHC 33.5 g/dl (32.0-36.0); MEAN PLT VOLUME 10.3 fl (7.5-11.1); PLATELET COUNT 219 K/MM3 (134-434); RBC 3.39 M/mm3 (3.60-5.2); RDW 13.3 % (11.6-15.6); WHITE BLOOD COUNT 6.3 K/mm3 (4.0-10.0)
[2020-03-11 09:08] LABS: BLOOD UREA NITROGEN 19.2 mg/dL (7-18); CALCIUM 9.1 mg/dL (8.5-10.1); CREATININE 0.9 mg/dL (0.55-1.3); MAGNESIUM 2.3 mg/dL (1.8-2.4); PHOSPHOROUS 3.7 mg/dL (2.5-4.9); POTASSIUM 3.8 mmol/L (3.5-5.1)
[2020-03-11] MEDS: ENOXAPARIN NA (PORCINE) 40 MG/0.4 ML DISP.SYRIN SQ SCH (09:25)
[2020-03-11] MEDS: ASPIRIN COATED 81 MG TABLET.EC PO SCH (09:25)
[2020-03-11] MEDS ORDERED: INSULIN (NOVOLOG) ASPART 100 UNITS/ML 10ML VIAL ONE ×3 (11:28→21:28)
--- NOTE | 2020-03-11 11:30 | EKG ---
Test Reason : Blood Pressure : / mmHG Vent. Rate : 093 BPM Atrial Rate : 093 BPM P-R Int : 184 ms QRS Dur : 078 ms QT Int : 342 ms P-R-T Axes : 054 034 -35 degrees QTc Int : 425 ms NORMAL SINUS RHYTHM ABNORMAL ECG WHEN COMPARED WITH ECG OF 20-JUL-2019 20:16, T WAVE INVERSION NOW EVIDENT IN INFERIOR LEADS INVERTED T WAVES HAVE REPLACED NONSPECIFIC T WAVE ABNORMALITY IN LATERAL LEADS Confirmed by MD Curt, Darius ([id number]) on 03/11/2020 11:30:03 AM Referred By: Confirmed By:Darius Elias MD
[2020-03-11] MEDS: VANCOMYCIN 1 GM in D5W (PRE-DOCKED) 1,000 MG/250 ML IVPB SCH (11:31)
--- NOTE | 2020-03-11 12:40 | CONSULT ---
Consult - text type - Consultation Consultation Note: Podiatry Consultation: 64 year old poorly controlled insulin dependent diabetic female, well known to me from prior admissions, presents to hospital with left third digit ulceration as well as right second and third digit ulceration. Patient is not a good historian, does not know how long the toes have been ulcerated. She denies F/V/N/C/SOB/CP. Currently afebrile. She has history of bilateral diabetic foot infections and has completed courses of intravenous abx for osteomyelitis. PMHx: IDDM, HTN, HLP, TIA Meds: noted ALL: lactose LIZET: Pedal pulses weakly palpable, TG wnl, CFT about 3 seconds to all digits bilaterally. There is superficial ulcer of the left third digit with mild duskiness noted to the surrounding tissues on the toe. There is no probing to bone, no purulent drainage, no fluctuance, no streaking ascending cellulitis, no soft tissue crepitus, no signs of acute infection. There is right second and third digit superficial diabetic ulcers, granular and stable, no exposed bone, no signs of infection. B/L Foot XR: negative for pathology Imp: 64 year old female with left third digit diabetic ulcer, right second/third digit diabetic ulcers 1. IV abx, ID consultation 2. Rx bactroban and dry sterile dressing to toes daily 3. PVRs ordered 4. May need MRI left foot if the third digit worsens 5. Will follow. Thank you for the courtesy of this consultation Kyler Singh DPM
--- NOTE | 2020-03-11 13:59 | PN ---
Physical Exam: SUBJECTIVE: Patient seen and examined at bedside this morning. Patient was admitted overnight due to worsening ulcers on her toes of both feet that she noted for about a month. Patient denies any fevers or chills. Denies pain or discharge. Patient has history bilateral plantar osteomyelitis which she completed a course of IV antibiotics. Patient also reports non-adherence to DM medications. OBJECTIVE: Vital Signs Temperature 98.7 F 03/11/20 10:00 Pulse Rate 94 H 03/11/20 10:00 Respiratory Rate 03/11/20 10:00 Blood Pressure 120/67 03/11/20 10:00 O2 Sat by Pulse Oximetry (%) 99 03/10/20 23:00 GENERAL: The patient is awake, alert, and fully oriented, in no acute distress. HEAD: Normal with no signs of trauma. EYES: PERRLA, EOMI, sclera anicteric, conjunctiva clear. NECK: Trachea midline, full range of motion, supple. LUNGS: Breath sounds equal, clear to auscultation bilaterally. HEART: Regular rate and rhythm, S1, S2. ABDOMEN: Soft, nontender, nondistended, normoactive bowel sounds. EXTREMITIES: weakly palpable DP pulses bilaterally, warm, well-perfused, no edema. +non draining, nontender ulcers of the 2nd, 3rd and 4th digits of Right foot, 3rd and 4th digits of Left foot. Sensation intact BLE NEUROLOGICAL: Cranial nerves II through XII grossly intact. Normal speech, normal gait. PSYCH: Normal mood, normal affect. SKIN: Warm, dry, normal turgor. Laboratory Results - last 24 hr 03/10/20 03/10/20 03/10/20 17:32 18:12 18:12 WBC RBC Hgb Hct MCV MCH MCHC RDW Plt Count MPV Absolute Neuts (auto) Neutrophils % Lymphocytes % Monocytes % Eosinophils % Basophils % Nucleated RBC % ESR 65 H PT with INR INR PTT (Actin FS) Sodium Potassium Chloride Carbon Dioxide Anion Gap BUN Creatinine Est GFR (CKD-EPI)AfAm Est GFR (CKD-EPI)NonAf POC Glucometer 269 Random Glucose Hemoglobin A1c % Calcium Phosphorus Magnesium Total Bilirubin AST ALT Alkaline Phosphatase C-Reactive Protein Cancelled Total Protein Albumin Beta-Hydroxybutyrate Urine Color Urine Appearance Urine pH Ur Specific [place] Urine Protein Urine Glucose (UA) Urine Ketones Urine Blood Urine Nitrite Urine Bilirubin Urine Urobilinogen Ur Leukocyte Esterase Urine WBC (Auto) Urine RBC (Auto) Urine Casts (Auto) U Pathogenic Cast Auto U Epithel Cells (Auto) U Sm Round Cell (Auto) Urine Bacteria (Auto) Urine Yeast (Auto) 03/10/20 03/10/20 03/10/20 18:12 18:12 18:12 WBC 7.3 RBC 3.55 L Hgb 11.2 Hct 33.4 MCV 94.1 MCH 31.4 MCHC 33.4 RDW 13.5 Plt Count 254 MPV 10.5 Absolute Neuts (auto) 3.7 Neutrophils % 50.1 Lymphocytes % 40.9 H D Monocytes % 6.0 Eosinophils % 2.1 Basophils % 0.9 Nucleated RBC % 0 ESR PT with INR 10.90 INR 0.92 PTT (Actin FS) Sodium Potassium Chloride Carbon Dioxide Anion Gap BUN Creatinine Est GFR (CKD-EPI)AfAm Est GFR (CKD-EPI)NonAf POC Glucometer Random Glucose Hemoglobin A1c % Calcium Phosphorus Magnesium Total Bilirubin AST ALT Alkaline Phosphatase C-Reactive Protein < 0.3 Total Protein Albumin Beta-Hydroxybutyrate 1.8 Urine Color Urine Appearance Urine pH Ur Specific [place] Urine Protein Urine Glucose (UA) Urine Ketones Urine Blood Urine Nitrite Urine Bilirubin Urine Urobilinogen Ur Leukocyte Esterase Urine WBC (Auto) Urine RBC (Auto) Urine Casts (Auto) U Pathogenic Cast Auto U Epithel Cells (Auto) U Sm Round Cell (Auto) Urine Bacteria (Auto) Urine Yeast (Auto) 03/10/20 03/10/20 03/11/20 18:12 18:12 02:15 WBC RBC Hgb Hct MCV MCH MCHC RDW Plt Count MPV Absolute Neuts (auto) Neutrophils % Lymphocytes % Monocytes % Eosinophils % Basophils % Nucleated RBC % ESR PT with INR INR PTT (Actin FS) 27.2 Sodium 137 Potassium 5.3 H Chloride 102 Carbon Dioxide 30 Anion Gap 5 L BUN 24.0 H Creatinine 1.0 Est GFR (CKD-EPI)AfAm 68.47 Est GFR (CKD-EPI)NonAf 59.07 POC Glucometer Random Glucose 261 H Hemoglobin A1c % Calcium 9.7 Phosphorus Magnesium Total Bilirubin 0.7 AST 27 ALT 18 Alkaline Phosphatase 100 C-Reactive Protein Total Protein 8.5 H Albumin 4.1 Beta-Hydroxybutyrate Urine Color Yellow Urine Appearance Turbid Urine pH 6.0 Ur Specific [place] 1.023 Urine Protein 1+ H Urine Glucose (UA) 3+ H Urine Ketones Negative Urine Blood 2+ H Urine Nitrite Positive H Urine Bilirubin Negative Urine Urobilinogen 1.0 Ur Leukocyte Esterase 3+ H Urine WBC (Auto) 2839 Urine RBC (Auto) 212 Urine Casts (Auto) 17 U Pathogenic Cast Auto None U Epithel Cells (Auto) 26 U Sm Round Cell (Auto) None Urine Bacteria (Auto) 4389 Urine Yeast (Auto) None 03/11/20 03/11/20 03/11/20 06:02 07:00 07:00 WBC 6.3 RBC 3.39 L Hgb 10.7 Hct 31.8 L MCV 94.0 MCH 31.5 MCHC 33.5 RDW 13.3 Plt Count 219 MPV 10.3 Absolute Neuts (auto) Neutrophils % Lymphocytes % Monocytes % Eosinophils % Basophils % Nucleated RBC % ESR PT with INR INR PTT (Actin FS) Sodium 137 Potassium 3.8 Chloride 100 Carbon Dioxide 30 Anion Gap 7 L BUN 19.2 H Creatinine 0.9 Est GFR (CKD-EPI)AfAm 77.77 Est GFR (CKD-EPI)NonAf 67.10 POC Glucometer 271 Random Glucose 170 H Hemoglobin A1c % Calcium 9.1 Phosphorus 3.7 Magnesium 2.3 Total Bilirubin AST ALT Alkaline Phosphatase C-Reactive Protein Total Protein Albumin Beta-Hydroxybutyrate Urine Color Urine Appearance Urine pH Ur Specific [place] Urine Protein Urine Glucose (UA) Urine Ketones Urine Blood Urine Nitrite Urine Bilirubin Urine Urobilinogen Ur Leukocyte Esterase Urine WBC (Auto) Urine RBC (Auto) Urine Casts (Auto) U Pathogenic Cast Auto U Epithel Cells (Auto) U Sm Round Cell (Auto) Urine Bacteria (Auto) Urine Yeast (Auto) 03/11/20 03/11/20 03/11/20 07:00 07:00 07:00 WBC RBC Hgb Hct MCV MCH MCHC RDW Plt Count MPV Absolute Neuts (auto) Neutrophils % Lymphocytes % Monocytes % Eosinophils % Basophils % Nucleated RBC % ESR 49 H PT with INR INR PTT (Actin FS) Sodium Potassium Chloride Carbon Dioxide Anion Gap BUN Creatinine Est GFR (CKD-EPI)AfAm Est GFR (CKD-EPI)NonAf POC Glucometer Random Glucose Hemoglobin A1c % 11.8 H Calcium Phosphorus Magnesium Total Bilirubin AST ALT Alkaline Phosphatase C-Reactive Protein < 0.3 Total Protein Albumin Beta-Hydroxybutyrate Urine Color Urine Appearance Urine pH Ur Specific [place] Urine Protein Urine Glucose (UA) Urine Ketones Urine Blood Urine Nitrite Urine Bilirubin Urine Urobilinogen Ur Leukocyte Esterase Urine WBC (Auto) Urine RBC (Auto) Urine Casts (Auto) U Pathogenic Cast Auto U Epithel Cells (Auto) U Sm Round Cell (Auto) Urine Bacteria (Auto) Urine Yeast (Auto) 03/11/20 11:24 WBC RBC Hgb Hct MCV MCH MCHC RDW Plt Count MPV Absolute Neuts (auto) Neutrophils % Lymphocytes % Monocytes % Eosinophils % Basophils % Nucleated RBC % ESR PT with INR INR PTT (Actin FS) Sodium Potassium Chloride Carbon Dioxide Anion Gap BUN Creatinine Est GFR (CKD-EPI)AfAm Est GFR (CKD-EPI)NonAf POC Glucometer 185 Random Glucose Hemoglobin A1c % Calcium Phosphorus Magnesium Total Bilirubin AST ALT Alkaline Phosphatase C-Reactive Protein Total Protein Albumin Beta-Hydroxybutyrate Urine Color Urine Appearance Urine pH Ur Specific [place] Urine Protein Urine Glucose (UA) Urine Ketones Urine Blood Urine Nitrite Urine Bilirubin Urine Urobilinogen Ur Leukocyte Esterase Urine WBC (Auto) Urine RBC (Auto) Urine Casts (Auto) U Pathogenic Cast Auto U Epithel Cells (Auto) U Sm Round Cell (Auto) Urine Bacteria (Auto) Urine Yeast (Auto) Active Medications Generic Name Dose Route Start Last Admin Trade Name Freq PRN Reason Stop Dose Admin Aspirin 81 mg 03/11/20 10:00 03/11/20 09:25 Ecotrin - PO 81 mg DAILY [facility] Administration Atorvastatin Calcium 40 mg 03/11/20 22:00 Lipitor - PO HS DMITRY Enoxaparin Sodium 40 mg 03/11/20 10:00 03/11/20 09:25 Lovenox - SQ 40 mg DAILY DMITRY Administration Insulin Aspart 1 vial 03/11/20 07:00 03/11/20 11:31 Novolog Vial Sliding Scale - SQ 2 units ACHS [facility] Administration Protocol Insulin Detemir 5 units 03/11/20 22:00 Levemir Vial SQ HS [facility] Mupirocin 1 applic 03/12/20 10:00 Bactroban 2% Ointment - TP DAILY [facility] Vancomycin HCl 1,000 mg 03/10/20 23:00 Vancomycin (Pre-Docked) IVPB BID [facility] Protocol ASSESSMENT/PLAN: Patient is a 64 year old female with past medical history of HTN, HLD, TIA, Left foot OM(Aug 2016), Right foot OM(February 2019 sp ceftriaxone x6wk, HBO), uncontrolled IDDM presented to [facility] with complaint of multiple foot ulcers. #Diabetic foot ulcers -concern for peripheral vascular disease, possible surrounding cellulitis -ID (Dr. Sainz) consulted. Recommendations appreciated. -IV Zosyn 3.375mg q8h -Podiatry (Dr. Singh) consulted. Recommendations appreciated. Apply Bactroban and dry sterile dressing to toes daily -Lower extremity doppler ordered -May need MRI of left foot if 3rd digit worsens -Vascular surgery (Dr. Nava) consulted. #IDDM -uncontrolled; nonadherence to medications, HbA1c 11.8 -Will start Insulin Levemir 8u HS and Novolog 3u TIDAC -Insulin sliding scale -monitor BGMs, and adjust insulin dose as indicated -Endo (Dr. Sky) consulted. #HTN -continue Lisinopril 20mg daily #HLD -Continue Lipitor 40mg HS #Asymptomatic UTI -protein 1+, gluoce 3+, blood 2+, nitrite positve, LE 3+, WBC 2839, bact 4389, epith 26 -Urine cultures ordered -will monitor off abx #Hx of TIA -Continue Lipitor and ASA #FEN -not on any standing fluids -electrolytes wnl, routine bmp monitoring -Diabetic diet #Prophylaxis -Lovenox 40mg sq daily #Disposition -full code -med surg Visit type - Emergency Visit Emergency Visit: Yes ED Registration Date: 03/10/20 Care time: The patient presented to the Emergency Department on the above date and was hospitalized for further evaluation of their emergent condition. - New Patient This patient is new to me today: Yes Date on this admission: 03/11/20 - Critical Care Critical Care patient: No - Discharge Referral Referred to [facility] Med P.C.: No ATTENDING PHYSICIAN STATEMENT I saw and evaluated the patient. I reviewed the resident's note and discussed the case with the resident. I agree with the resident's findings and plan as documented. SUBJECTIVE: OBJECTIVE: ASSESSMENT AND PLAN:
--- NOTE | 2020-03-11 14:02 | CON.ID ---
Consult Consult Specialty:: infectious diseases Referred by:: hospitalist Reason for Consultation:: bilateral toe wounds and ulceration - History of Present Illness Chief Complaint: wounds on the toes of the foot History of Present Illness: 64 year old poorly controlled insulin dependent diabetic female, presents to hospital with left third digit ulceration as well as right second and third digit ulceration. Patient is not a good historian, does not know how long the toes have been ulcerated. She denies F/V/N/C/SOB/CP. Currently afebrile. She has history of bilateral diabetic foot infections and has completed courses of intravenous abx for osteomyelitis. now she has wounds over the toes ,the wounds look quite clean - History Source History Provided By: Patient, Medical Record Limitations to Obtaining History: Poor Historian - Past Medical History PROCESS ENG: Yes: Other (chronic intermittent lightheadedness (x 1 year)) Cardio/Vascular: Yes: CAD, HTN, Hyperlipdemia, Other (angina) Pulmonary: No: Asthma, Bronchitis, Cancer, COPD, O2 Dependent, Pneumonia, Previously Intubated, Pulmonary Embolus, Pulmonary Fibrosis, Sleep Apnea, Other Psych: Yes: Depression ENT: Yes: Other (blind left eye) Endocrine: Yes: Diabetes Mellitus - Past Surgical History Past Surgical History: Yes: None - Alcohol/Substance Use Hx Alcohol Use: No - Smoking History Smoking history: Never smoked Have you smoked in the past 12 months: No Aproximately how many cigarettes per day: 0 Home Medications - Allergies Allergies/Adverse Reactions: Allergies Allergy/AdvReac Type Severity Reaction Status Date / Time lactose AdvReac Verified 03/10/20 16:30 - Home Medications Home Medications: Ambulatory Orders Aspirin [ASA -] 81 mg PO DAILY 08/01/17 Atorvastatin Ca [Lipitor] 40 mg PO HS #30 tablet 08/02/17 Lactobacillus Acidophilus [Bacid -] 1 tab PO BID 06/21/19 Insulin (Novolog) [Novolog -] 0 units SQ ASDIR #3 vial 06/22/19 Insulin Glargine,Hum.rec.anlog [Lantus] 5 unit SQ HS #1 vial 06/22/19 Pantoprazole Sodium [Protonix] 40 mg PO DAILY #30 tablet.dr 06/22/19 metFORMIN XR [Glucophage Xr -] 500 mg PO DAILY@0700 #30 tab.sr.24h 06/22/19 Lisinopril 20 mg PO DAILY 03/11/20 Review of Systems - Review of Systems Constitutional: reports: No Symptoms Eyes: reports: No Symptoms HENT: reports: No Symptoms Neck: reports: No Symptoms Cardiovascular: reports: No Symptoms Respiratory: reports: No Symptoms Gastrointestinal: reports: No Symptoms Genitourinary: reports: No Symptoms Musculoskeletal: reports: Other (leg pain) Integumentary: reports: Erythema Neurological: reports: No Symptoms Endocrine: reports: No Symptoms Hematology/Lymphatic: reports: No Symptoms Psychiatric: reports: No Symptoms Physical Exam Vital Signs: Vital Signs Temperature 98.7 F 03/11/20 10:00 Pulse Rate 94 H 03/11/20 10:00 Respiratory Rate 20 03/11/20 10:00 Blood Pressure 120/67 03/11/20 10:00 O2 Sat by Pulse Oximetry (%) 99 03/10/20 23:00 Constitutional: Yes: No Distress, Calm, Thin Eyes: Yes: Conjunctiva Clear HENT: Yes: Atraumatic, Normocephalic Neck: Yes: Supple, Trachea Midline Cardiovascular: Yes: Regular Rate and Rhythm Respiratory: Yes: Regular, CTA Bilaterally Gastrointestinal: Yes: Normal Bowel Sounds, Soft Musculoskeletal: Yes: WNL Extremities: Yes: WNL Wound/Incision: Yes: Open to air, Other (dry,) Neurological: Yes: Alert, Oriented Psychiatric: Yes: Alert, Oriented Labs: CBC, BMP 03/11/20 07:00 03/11/20 07:00 Imaging - Results Chest X-ray: Report Reviewed, Image Reviewed X-ray: Report Reviewed, Image Reviewed Assessment/Plan 64F w/ pmh of HTN, HLD, TIA, Left foot OM(Aug 2016), Right foot OM(February 2019 sp ceftriaxone x6wk, HBO), uncontrolled IDDM presented to [facility] with complaint of discoloration of b/l foot wounds. Had wounds x1week with gradual darkening of dorsal surface. No drainage, or foul smell. Admitted for Diabetic Foot Ulcers. #BLE toe diabetic ulcers w/ possible surrounding cellulitis #IDDM uti h/o of tia plan wound care will start patient on zosyn podiatry note noted rest as per the team
[2020-03-11] MEDS: MUPIROCIN 2% TOPICAL OINTMENT 22 GM TUBE TP SCH (14:22)
--- NOTE | 2020-03-11 15:08 | PN ---
Teaching Attending Note Name of Resident: Liseth March ATTENDING PHYSICIAN STATEMENT I saw and evaluated the patient. I reviewed the resident's note and discussed the case with the resident. I agree with the resident's findings and plan as documented. SUBJECTIVE: Seen and examined at bedside. Patient is alert and oriented x3 but is a poor historian. ID and podiatry consults appreciated. The wound appears clean and there is no white count. Will consult vascular OBJECTIVE: Last Vital Signs Temp Pulse Resp BP Pulse Ox 98.0 F 87 20 126/69 99 03/11/20 14:17 03/11/20 14:17 03/11/20 14:17 03/11/20 14:17 03/10/20 23:00 PE: Per resident note Labs/Imaging: Reviewed ASSESSMENT AND PLAN: 64-year-old female history of poorly controlled diabetes, multiple past cases of osteomyelitis, hypertension, hyperlipidemia, TIA presents with bilateral diabetic foot ulcers. #Bilateral diabetic foot ulcers Given that the wounds appear clean, no white count and no obvious sign of cellulitis greater concern that these are ischemic in origin rather than purely infectious given high risk medical history. ID on board: Continue Zosyn Podiatry on board: Appreciate recommendations Bactroban and dry sterile dressing to toes daily May need MRI left foot if the third digit worsens Consult vascular surgery #IDDM: Uncontrolled, non-adherent to treatment A1c 11.8 Long-acting insulin 8 units nightly Lispro 3 units 3 times daily AC Sliding scale #History of TIA Continue aspirin statin #Hypertension Continue lisinopril
[2020-03-11] MEDS ORDERED: DEXTROSE 5%-WATER - 50 ML IVPB ONE (15:44)
[2020-03-11] MEDS ORDERED: PIPERACILLIN/TAZOBACTAM 3.375 GM VIAL IVPB ONE (15:44)
[2020-03-11] MEDS: PIPERACILLIN/TAZOB 3.375 GM 3.375 GM in DEXTROSE 5%-WATER - 50 ML IVPB SCH ×2 (15:48→17:59)
[2020-03-11] MEDS: Insulin (LOG) Aspart 100 UNITS/ML VIAL SQ SCH (16:58)
[2020-03-11] MEDS: INSULIN (LEVEMIR) 100 UNITS/ML UNITS SQ SCH (21:45)
[2020-03-11] MEDS: ATORVASTATIN CA 40 MG TABLET (FP) PO SCH (21:46)
[2020-03-11] MEDS: LACTOBACILLUS ACIDOPHILUS 1 TABLET PO SCH (21:47)
[2020-03-11] MEDS ORDERED: INSULIN (LEVEMIR) 100 UNITS/ML UNITS SQ SCH ×2 (22:00)
[2020-03-12] MEDS ORDERED: DEXTROSE 5%-WATER - 50 ML IVPB ONE ×3 (00:54→16:55)
[2020-03-12] MEDS ORDERED: PIPERACILLIN/TAZOBACTAM 3.375 GM VIAL IVPB ONE ×3 (00:54→16:55)
[2020-03-12] MEDS: PIPERACILLIN/TAZOB 3.375 GM 3.375 GM in DEXTROSE 5%-WATER - 50 ML IVPB SCH ×3 (01:07→17:53)
[2020-03-12] MEDS: INSULIN SLIDING SCALE (NOVOLOG) 1 VIAL SQ SCH ×4 (06:00→21:55)
[2020-03-12] MEDS: Insulin (LOG) Aspart 100 UNITS/ML VIAL SQ SCH ×3 (06:01→16:51)
[2020-03-12 07:57] LABS: BASO % 0.6 % (0-2.0); EOS % 2.6 % (0-4.5); HEMATOCRIT 32.6 % (32.4-45.2); HEMOGLOBIN 10.8 GM/dL (10.7-15.3); LYMPH % 36.8 % (8-40); MEAN PLT VOLUME 10.2 fl (7.5-11.1); MONO % 6.4 % (3.8-10.2); NEUT % 53.6 % (42.8-82.8); PLATELET COUNT 236 K/MM3 (134-434); RBC 3.47 M/mm3 (3.60-5.2); RDW 13.3 % (11.6-15.6); WHITE BLOOD COUNT 6.2 K/mm3 (4.0-10.0)
[2020-03-12 08:19] LABS: BLOOD UREA NITROGEN 18.9 mg/dL (7-18); CALCIUM 9.6 mg/dL (8.5-10.1); CREATININE 1.1 mg/dL (0.55-1.3); MAGNESIUM 2.5 mg/dL (1.8-2.4); PHOSPHOROUS 4.7 mg/dL (2.5-4.9); POTASSIUM 4.3 mmol/L (3.5-5.1)
[2020-03-12] MEDS: ENOXAPARIN NA (PORCINE) 40 MG/0.4 ML DISP.SYRIN SQ SCH (09:23)
[2020-03-12] MEDS: ASPIRIN COATED 81 MG TABLET.EC PO SCH (09:23)
[2020-03-12] MEDS: LISINOPRIL 20 MG TABLET (FP) PO SCH (09:23)
[2020-03-12] MEDS: LACTOBACILLUS ACIDOPHILUS 1 TABLET PO SCH ×2 (09:23→21:50)
[2020-03-12] MEDS: MUPIROCIN 2% TOPICAL OINTMENT 22 GM TUBE TP SCH (09:23)
--- NOTE | 2020-03-12 09:40 | PN ---
Progress Note (short form) - Note Progress Note: Podiatry F/U: Seen/evaluated at bedside NAD. Pain is controlled. Denies F/V/N/C/SOB/CP. AFebrile. Arterial studies performed yesterday. LIZET: Pedal pulses weakly palpable, TG wnl, CFT brisk to all digits bilaterally. There is a right second digit diabetic ulcer with underlying granular base, minimal slough, no probing to bone, no purulent drainage, no fluctuance, no streaking ascending cellulitis, no signs of acute infection. There is a left third digit diabetic ulcer with granular base, mild discoloration to the digit periwound, no probing to bone, no purulent drainage, no fluctuance, no streaking ascending cellulitis, no signs of acute infection Imp: 64 year old poorly controlled diabetic female with right second digit diabetic ulcer, left third digit diabetic ulcer 1. IV abx per ID 2. Continue local care with bactroban and DSD daily 3. Arterial studies performed, waveforms look okay. Vascular consult. 4. She will need close follow up in wound healing center once discharged. 5. Tight glycemic control. 6. Will follow. Kyler Singh DPM
--- NOTE | 2020-03-12 09:53 | CONSULT ---
- Consultation REQUESTING PROVIDER: CONSULT REQUEST: We have been asked to surgically evaluate this patient for toe wounds. PCP:Bud Ryder MD HISTORY OF PRESENT ILLNESS: 64F w/ pmh of HTN, HLD, TIA, Left foot OM (Aug 2016), Right foot OM (February 2019 sp ceftriaxone x6wk, HBO), uncontrolled IDDM presented to [facility] with complaint of discoloration of b/l toes and wounds. Patient states she had wounds x1week with gradual darkening of dorsal surface. No drainage, or foul smell. Denies recent trauma or noew footwear. Denies pain, numbness, shooting sensation. Has foot orthotics but rarely uses them, instead opting for her sneakers. Hasn't taken insulin for over a month self admitted uncontrolled DM. Has a glucose monitoring kit but doesn't check her daily BGM. Doesn't see her doctors on a regular basis. Hasn't seen Dr Singh since last Fall. Hasn't seen an engraver apprentice decorative in years. Retired, but formerly worked in [employer] at a [employer]. Lives a house with her daughter. Recent Travel: none PAST MEDICAL HISTORY: as above PAST SURGICAL HISTORY: none Social History: Smoking: denies Alcohol: denies Drugs: denies Allergies lactose Adverse Reaction (Verified 03/10/20 16:30) HOME MEDICATIONS: Home Medications Medication Instructions Recorded Aspirin [ASA -] 81 mg PO DAILY 08/01/17 Atorvastatin Ca [Lipitor] 40 mg PO HS #30 tablet 08/02/17 Lactobacillus Acidophilus [Bacid -] 1 tab PO BID 06/21/19 Insulin (Novolog) [Novolog -] 0 units SQ ASDIR #3 vial 06/22/19 Insulin Glargine,Hum.rec.anlog 5 unit SQ HS #1 vial 06/22/19 [Lantus] Pantoprazole Sodium [Protonix] 40 mg PO DAILY #30 tablet. 06/22/19 metFORMIN XR [Glucophage Xr -] 500 mg PO DAILY@0700 #30 tab.sr.24h 06/22/19 REVIEW OF SYSTEMS CONSTITUTIONAL: Absent: fever, chills, diaphoresis,, loss of appetite, weight change HEENT: chronic Left eye vision deficits Absent: rhinorrhea, nasal congestion, throat pain, throat swelling, difficulty swallowing, CARDIOVASCULAR: Absent: chest pain, syncope,, lightheadedness, peripheral edema RESPIRATORY: Absent: cough, shortness of breath, dyspnea with exertion, GASTROINTESTINAL: Absent: abdominal pain, abdominal distension, nausea, vomiting, GENITOURINARY: Absent: dysuria, frequency, urgency, hesitancy, hematuria, MUSCULOSKELETAL: Absent: myalgia, arthralgia, joint swelling, back pain, neck pain SKIN: Absent: rash, itching, pallor HEMATOLOGIC/IMMUNOLOGIC: Absent: easy bleeding, easy bruising, ENDOCRINE: Absent: unexplained weight gain, unexplained weight loss, heat intolerance, cold intolerance NEUROLOGIC: Absent: headache, focal weakness or paresthesias, dizziness, unsteady gait, PSYCHIATRIC: Absent: anxiety, depression, suicidal or homicidal ideation, hallucinations. PHYSICAL EXAMINATION Vital Signs Period Temp Pulse Resp BP Sys/[place] Pulse Ox Last 24 Hr 97.3 F-98.0 F 83-94 18-20 106-127/68-74 98 GENERAL: Awake, alert, and fully oriented, in no acute distress. HEAD: NC/AT EYES: sclera anicteric, conjunctiva clear. No lid lag. EARS, NOSE, THROAT: Ears normal, nares patent, Moist mucous membranes. LUNGS: Unlabred resp on RA, No audible wheezes, no accessory muscle use. MUSCULOSKELETAL: Moving all extremities without limitation, No bony deformities or tenderness. UPPER EXTREMITIES: warm, well-perfused. No peripheral edema. LOWER EXTREMITIES: Compartments soft, supple and non-tender with no lesions or rashes, no peripheral edema. Left Foot with slight dusky appearance of toes 2-4 with excoriation and healing scabs throughout, weakly signal on doppler over DP pulses bilaterally, warm, well-perfused, no edema. +non draining, nontender ulcers of the 2nd, 3rd and 4th digits of Right foot, 3rd and 4th digits of Left foot. Sensation intact B/L LE. no tracking erythema, edema signs of infection or active d/c/foul odor. CBC, BMP 03/12/20 06:51 03/12/20 06:51 Abnormal Lab Results 03/12/20 03/12/20 06:51 06:51 RBC 3.47 L BUN 18.9 H Random Glucose 125 H Magnesium 2.5 H vascular duplex pending Last arterial duplex February 2019 revealed mild to moderated atherosclerotic disease and stenosis. Problem List - Problems (1) Diabetic toe ulcer Assessment/Plan: Imp: 64 year old poorly controlled diabetic female with chronic diabetic ulcers on b/l toes and history of osteo with + signal on doppler and good perfusion, no indication for vascular intervention at this time. 1. IV abx per ID 2. Continue local care with bactroban and DSD daily 3. OOB as tolerated, encourage ambulation 4. re-consult vascular PRN Evaluation and plan discussed with Dr Nava Code(s): E11.621 - TYPE 2 DIABETES MELLITUS WITH FOOT ULCER; L97.509 - NON- PRESSURE CHRONIC ULCER OTH PRT UNSP FOOT W UNSP SEVERITY Qualifiers: Diabetes mellitus type: type 2 Laterality: unspecified laterality Non- pressure ulcer stage: unspecified non-pressure ulcer stage Qualified Code(s): E11.621 - Type 2 diabetes mellitus with foot ulcer; L97.509 - Non-pressure chronic ulcer of other part of unspecified foot with unspecified severity
--- NOTE | 2020-03-12 11:06 | PN ---
Progress Note, Physician History of Present Illness: stable no new issues - Current Medication List Current Medications: Active Medications Aspirin (Ecotrin -) 81 mg PO DAILY [facility] Last Admin: 03/12/20 09:23 Dose: 81 mg Documented by: Atorvastatin Calcium (Lipitor -) 40 mg PO HS [facility] Last Admin: 03/11/20 21:46 Dose: 40 mg Documented by: Enoxaparin Sodium (Lovenox -) 40 mg SQ DAILY [facility] Last Admin: 03/12/20 09:23 Dose: 40 mg Documented by: Piperacillin Sod/Tazobactam (Sod 3.375 gm/ Dextrose) 50 mls @ 100 mls/hr IVPB Q8H-IV [facility]; Protocol Last Admin: 03/12/20 09:23 Dose: 100 mls/hr Documented by: Insulin Aspart (Novolog Vial Sliding Scale -) 1 vial SQ [facility]; Protocol Last Admin: 03/12/20 06:00 Dose: 2 units Documented by: Insulin Aspart (Novolog) 3 units SQ TIDAC [facility] Last Admin: 03/12/20 06:01 Dose: 3 units Documented by: Insulin Detemir (Levemir Vial) 8 units SQ [facility] Last Admin: 03/11/20 21:45 Dose: 8 units Documented by: Lactobacillus Acidophilus (Bacid -) 1 tab PO BID [facility] Last Admin: 03/12/20 09:23 Dose: 1 tab Documented by: Lisinopril (Prinivil) 20 mg PO DAILY [facility] Last Admin: 03/12/20 09:23 Dose: 20 mg Documented by: Mupirocin (Bactroban 2% Ointment -) 1 applic TP DAILY [facility] Last Admin: 03/12/20 09:23 Dose: 1 applic Documented by: - Objective Vital Signs: Vital Signs Temperature 97.3 F L 03/12/20 05:00 Pulse Rate 83 03/12/20 05:00 Respiratory Rate 18 03/12/20 01:00 Blood Pressure 106/68 03/12/20 05:00 O2 Sat by Pulse Oximetry (%) 98 03/11/20 21:00 Constitutional: Yes: No Distress, Calm Cardiovascular: Yes: S1, S2 Respiratory: Yes: Regular, CTA Bilaterally Gastrointestinal: Yes: Normal Bowel Sounds, Soft Musculoskeletal: Yes: WNL Extremities: Yes: Other Wound/Incision: Yes: Dressing Dry and Intact Neurological: Yes: Alert, Oriented Psychiatric: Yes: Alert, Oriented Labs: CBC, BMP 03/12/20 06:51 03/12/20 06:51 INR, PTT INR 0.92 (0.83-1.09) 03/10/20 18:12 Assessment/Plan 64F w/ pmh of HTN, HLD, TIA, Left foot OM(Aug 2016), Right foot OM(February 2019 sp ceftriaxone x6wk, HBO), uncontrolled IDDM presented to [facility] with complaint of discoloration of b/l foot wounds. Had wounds x1week with gradual darkening of dorsal surface. No drainage, or foul smell. Admitted for Diabetic Foot Ulcers. #BLE toe diabetic ulcers w/ possible surrounding cellulitis #IDDM uti h/o of tia plan abx wound care
[2020-03-12] MEDS ORDERED: INSULIN (NOVOLOG) ASPART 100 UNITS/ML 10ML VIAL ONE ×3 (11:33→21:17)
--- NOTE | 2020-03-12 13:56 | PN ---
Physical Exam: SUBJECTIVE: Patient seen and examined at bedside this morning. No acute events overnight. Patient reports feeling well and and has no complaints. OBJECTIVE: Vital Signs Temperature 97.9 F 03/12/20 09:00 Pulse Rate 104 H 03/12/20 09:00 Respiratory Rate 18 03/12/20 09:00 Blood Pressure 98/52 L 03/12/20 09:00 O2 Sat by Pulse Oximetry (%) 98 03/11/20 21:00 GENERAL: The patient is awake, alert, and fully oriented, in no acute distress. HEAD: Normal with no signs of trauma. EYES: PERRLA, EOMI, sclera anicteric, conjunctiva clear. NECK: Trachea midline, full range of motion, supple. LUNGS: Breath sounds equal, clear to auscultation bilaterally. HEART: Regular rate and rhythm, S1, S2. ABDOMEN: Soft, nontender, nondistended, normoactive bowel sounds. EXTREMITIES: weakly palpable DP pulses bilaterally, warm, well-perfused, no edema. +non draining, nontender ulcers of the 2nd, 3rd and 4th digits of Right foot, 3rd and 4th digits of Left foot. Sensation intact BLE NEUROLOGICAL: Cranial nerves II through XII grossly intact. Normal speech, normal gait. PSYCH: Normal mood, normal affect. SKIN: Warm, dry, normal turgor. Laboratory Results - last 24 hr 03/10/20 03/11/20 03/11/20 20:05 16:23 21:44 WBC RBC Hgb Hct MCV MCH MCHC RDW Plt Count MPV Absolute Neuts (auto) Neutrophils % Lymphocytes % Monocytes % Eosinophils % Basophils % Nucleated RBC % Sodium Potassium Chloride Carbon Dioxide Anion Gap BUN Creatinine Est GFR (CKD-EPI)AfAm Est GFR (CKD-EPI)NonAf POC Glucometer 229 233 Random Glucose Calcium Phosphorus Magnesium COVID-19 (ALEX) Not detected 03/12/20 03/12/20 03/12/20 06:00 06:51 06:51 WBC 6.2 RBC 3.47 L Hgb 10.8 Hct 32.6 MCV 94.0 MCH 31.0 MCHC 33.0 RDW 13.3 Plt Count 236 MPV 10.2 Absolute Neuts (auto) 3.3 Neutrophils % 53.6 Lymphocytes % 36.8 Monocytes % 6.4 Eosinophils % 2.6 Basophils % 0.6 Nucleated RBC % 0 Sodium 139 Potassium 4.3 Chloride 104 Carbon Dioxide 28 Anion Gap 8 BUN 18.9 H Creatinine 1.1 Est GFR (CKD-EPI)AfAm 61.01 Est GFR (CKD-EPI)NonAf 52.64 POC Glucometer 151 Random Glucose 125 H Calcium 9.6 Phosphorus 4.7 Magnesium 2.5 H COVID-19 (ALEX) 03/12/20 11:30 WBC RBC Hgb Hct MCV MCH MCHC RDW Plt Count MPV Absolute Neuts (auto) Neutrophils % Lymphocytes % Monocytes % Eosinophils % Basophils % Nucleated RBC % Sodium Potassium Chloride Carbon Dioxide Anion Gap BUN Creatinine Est GFR (CKD-EPI)AfAm Est GFR (CKD-EPI)NonAf POC Glucometer 242 Random Glucose Calcium Phosphorus Magnesium COVID-19 (ALEX) Active Medications Generic Name Dose Route Start Last Admin Trade Name Freq PRN Reason Stop Dose Admin Aspirin 81 mg 03/11/20 10:00 03/12/20 09:23 Ecotrin - PO 81 mg DAILY [facility] Administration Atorvastatin Calcium 40 mg 03/11/20 22:00 03/11/20 21:46 Lipitor - PO 40 mg HS [facility] Administration Enoxaparin Sodium 40 mg 03/11/20 10:00 03/12/20 09:23 Lovenox - SQ 40 mg DAILY [facility] Administration Piperacillin Sod/Tazobactam 50 mls @ 100 mls/hr 03/11/20 14:15 03/12/20 09:23 Sod 3.375 gm/ Dextrose IVPB 100 mls/hr Q8H-IV [facility] Administration Protocol Insulin Aspart 1 vial 03/11/20 07:00 03/12/20 11:54 Novolog Vial Sliding Scale - SQ 4 units ACHS [facility] Administration Protocol Insulin Aspart 3 units 03/11/20 16:30 03/12/20 11:58 Novolog SQ 3 units TIDAC [facility] Administration Insulin Detemir 8 units 03/11/20 22:00 03/11/20 21:45 Levemir Vial SQ 8 units HS [facility] Administration Lactobacillus Acidophilus 1 tab 03/11/20 22:00 03/12/20 09:23 Bacid - PO 1 tab BID [facility] Administration Lisinopril 20 mg 03/12/20 10:00 03/12/20 09:23 Prinivil PO 20 mg DAILY [facility] Administration Mupirocin 1 applic 03/12/20 10:00 03/12/20 09:23 Bactroban 2% Ointment - TP 1 applic DAILY [facility] Administration ASSESSMENT/PLAN: Patient is a 64 year old female with past medical history of HTN, HLD, TIA, Left foot OM(Aug 2016), Right foot OM(February 2019 sp ceftriaxone x6wk, HBO), uncontrolled IDDM presented to [facility] with complaint of multiple foot ulcers. #Diabetic foot ulcers -ID (Dr. Sainz) consulted. Recommendations appreciated. -IV Zosyn 3.375mg q8h day 2 -Podiatry (Dr. Singh) consulted. Recommendations appreciated. -Continue Bactroban and dry sterile dressing to toes daily -Arterial studies performed, waveforms look okay. although additional studies may be indicated -Wound need close follow up at the wound care clinic upon discharge. -Vascular surgery (Dr. Nava) consulted. - (+) signal on doppler and good perfusion - LE ultrasound done- #IDDM -uncontrolled; nonadherence to medications, HbA1c 11.8 -Continue Insulin Levemir 8u HS and Novolog 3u TIDAC -Insulin sliding scale -monitor BGMs, and adjust insulin dose as indicated -Endo (Dr. Sky) consulted. #HTN -continue Lisinopril 20mg daily #HLD -Continue Lipitor 40mg HS #Asymptomatic UTI -protein 1+, gluoce 3+, blood 2+, nitrite positve, LE 3+, WBC 2839, bact 4389, epith 26 -Urine cultures ordered -will monitor off abx #Hx of TIA -Continue Lipitor and ASA #FEN -not on any standing fluids -electrolytes wnl, routine bmp monitoring -Diabetic diet #Prophylaxis -Lovenox 40mg sq daily #Disposition -full code -med surg Visit type - Emergency Visit Emergency Visit: Yes ED Registration Date: 03/10/20 Care time: The patient presented to the Emergency Department on the above date and was hospitalized for further evaluation of their emergent condition. - New Patient This patient is new to me today: No - Critical Care Critical Care patient: No ATTENDING PHYSICIAN STATEMENT I saw and evaluated the patient. I reviewed the resident's note and discussed the case with the resident. I agree with the resident's findings and plan as documented. SUBJECTIVE: OBJECTIVE: ASSESSMENT AND PLAN:
--- NOTE | 2020-03-12 14:48 | PN ---
Teaching Attending Note Name of Resident: Liseth March ATTENDING PHYSICIAN STATEMENT I saw and evaluated the patient. I reviewed the resident's note and discussed the case with the resident. I agree with the resident's findings and plan as documented. SUBJECTIVE: Seen and examined at bedside. no complaints. Will discuss obtaining additional imaging with vascular. Arterial dopplar is not sufficient to r/o PVD in this patient with multiple risk factors OBJECTIVE: Last Vital Signs Temp Pulse Resp BP Pulse Ox 98.0 F 87 20 126/69 99 03/11/20 14:17 03/11/20 14:17 03/11/20 14:17 03/11/20 14:17 03/10/20 23:00 PE: Per resident note Labs/Imaging: Reviewed ASSESSMENT AND PLAN: 64-year-old female history of poorly controlled diabetes, multiple past cases of osteomyelitis, hypertension, hyperlipidemia, TIA presents with bilateral diabetic foot ulcers. #Bilateral diabetic foot ulcers Given that the wounds appear clean, no white count and no obvious sign of cellulitis greater concern that these are ischemic in origin rather than purely infectious given high risk medical history. -Will discuss obtaining additional imaging with vascular. Arterial dopplar is not sufficient to r/o PVD in this patient at high risk ID on board: Continue Zosyn Podiatry on board: Appreciate recommendations Bactroban and dry sterile dressing to toes daily May need MRI left foot if the third digit worsens #IDDM: Uncontrolled, non-adherent to treatment A1c 11.8 Long-acting insulin 8 units nightly Lispro 3 units 3 times daily AC Sliding scale #History of TIA Continue aspirin statin #Hypertension Continue lisinopril
[2020-03-12] MEDS: ATORVASTATIN CA 40 MG TABLET (FP) PO SCH (21:50)
[2020-03-12] MEDS: INSULIN (LEVEMIR) 100 UNITS/ML UNITS SQ SCH (21:51)
[2020-03-13] MEDS ORDERED: PIPERACILLIN/TAZOBACTAM 3.375 GM VIAL IVPB ONE ×3 (02:24→17:08)
[2020-03-13] MEDS ORDERED: DEXTROSE 5%-WATER - 50 ML IVPB ONE ×3 (02:24→17:08)
[2020-03-13] MEDS: PIPERACILLIN/TAZOB 3.375 GM 3.375 GM in DEXTROSE 5%-WATER - 50 ML IVPB SCH ×3 (02:25→17:11)
[2020-03-13] MEDS: Insulin (LOG) Aspart 100 UNITS/ML VIAL SQ SCH ×3 (06:12→17:11)
[2020-03-13] MEDS: INSULIN SLIDING SCALE (NOVOLOG) 1 VIAL SQ SCH ×4 (06:13→21:47)
[2020-03-13 08:40] LABS: BASO % 0.6 % (0-2.0); EOS % 2.2 % (0-4.5); HEMOGLOBIN 10.5 GM/dL (10.7-15.3); LYMPH % 35.1 % (8-40); MCH 31.6 pg (25.7-33.7); MCHC 33.7 g/dl (32.0-36.0); MEAN CELL VOLUME 93.7 fl (80-96); MEAN PLT VOLUME 9.9 fl (7.5-11.1); NEUT % 55.1 % (42.8-82.8); PLATELET COUNT 216 K/MM3 (134-434); RBC 3.31 M/mm3 (3.60-5.2); RDW 13.4 % (11.6-15.6); WHITE BLOOD COUNT 6.1 K/mm3 (4.0-10.0)
[2020-03-13 09:07] LABS: BLOOD UREA NITROGEN 25.6 mg/dL (7-18); CALCIUM 9.3 mg/dL (8.5-10.1); CREATININE 1.3 mg/dL (0.55-1.3); MAGNESIUM 2.6 mg/dL (1.8-2.4); POTASSIUM 4.2 mmol/L (3.5-5.1)
[2020-03-13] MEDS: ASPIRIN COATED 81 MG TABLET.EC PO SCH (10:58)
[2020-03-13] MEDS: LACTOBACILLUS ACIDOPHILUS 1 TABLET PO SCH ×2 (10:58→21:42)
[2020-03-13] MEDS: LISINOPRIL 20 MG TABLET (FP) PO SCH (10:59)
[2020-03-13] MEDS: ENOXAPARIN NA (PORCINE) 40 MG/0.4 ML DISP.SYRIN SQ SCH (10:59)
[2020-03-13] MEDS ORDERED: INSULIN (NOVOLOG) ASPART 100 UNITS/ML 10ML VIAL ONE (11:01)
[2020-03-13] MEDS: MUPIROCIN 2% TOPICAL OINTMENT 22 GM TUBE TP SCH (11:03)
[2020-03-13] MEDS ORDERED: PT OWN MED DRAWER 7, Y5N ONE (12:05)
--- NOTE | 2020-03-13 13:24 | PN ---
Teaching Attending Note Name of Resident: [place] ATTENDING PHYSICIAN STATEMENT I saw and evaluated the patient. I reviewed the resident's note and discussed the case with the resident. I agree with the resident's findings and plan as documented. SUBJECTIVE: Seen and examined at bedside. no complaints. Pending results of CTA aorta and LE. OBJECTIVE: Last Vital Signs Temp Pulse Resp BP Pulse Ox 98.4 F 90 18 125/65 98 03/13/20 06:00 03/13/20 06:00 03/13/20 06:00 03/13/20 06:00 03/12/20 21:00 PE: Per resident note Labs/Imaging: Reviewed ASSESSMENT AND PLAN: 64-year-old female history of poorly controlled diabetes, multiple past cases of osteomyelitis, hypertension, hyperlipidemia, TIA presents with bilateral diabetic foot ulcers. #Bilateral diabetic foot ulcers Given that the wounds appear clean, no white count and no obvious sign of cellulitis greater concern that these are ischemic in origin rather than purely infectious given high risk medical history. -pending CTA aorta and LE [facility] on board: Appreciate recommendations Bactroban and dry sterile dressing to toes daily May need MRI left foot if the third digit worsens #IDDM: Uncontrolled, non-adherent to treatment A1c 11.8 Long-acting insulin 8 units nightly Lispro 3 units 3 times daily AC Sliding scale #History of TIA Continue aspirin statin #Hypertension Continue lisinopril
--- NOTE | 2020-03-13 13:59 | PN ---
Progress Note (short form) - Note Progress Note: Vascular Surgery Awaiting official CTA results. Will then form plan Sam Nava DO
--- NOTE | 2020-03-13 17:04 | PN ---
Physical Exam: SUBJECTIVE: Patient seen and examined at bedside, states she is feeling well. OBJECTIVE: Vital Signs Period Temp Pulse Resp BP Sys/[place] Pulse Ox Last 24 Hr 97.8 F-98.4 F 83-90 18-18 82-135/51-66 98-100 GENERAL: The patient is awake, alert, and fully oriented, in no acute distress. HEAD: Normal with no signs of trauma. EYES: PERRLA, EOMI, sclera anicteric, conjunctiva clear. NECK: Trachea midline, full range of motion, supple. LUNGS: Breath sounds equal, clear to auscultation bilaterally. HEART: Regular rate and rhythm, S1, S2. ABDOMEN: Soft, nontender, nondistended, normoactive bowel sounds. EXTREMITIES: weak pulses BL, non draining, nontender ulcers of the 2nd, 3rd and 4th digits of Right foot, 3rd and 4th digits of Left foot. Sensation intact BLE NEUROLOGICAL: Cranial nerves II through XII grossly intact. Normal speech, normal gait. PSYCH: Normal mood, normal affect. SKIN: Warm, dry, normal turgor. Laboratory Results - last 24 hr 03/12/20 03/13/20 03/13/20 21:55 05:51 07:18 WBC 6.1 RBC 3.31 L Hgb 10.5 L Hct 31.0 L MCV 93.7 MCH 31.6 MCHC 33.7 RDW 13.4 Plt Count 216 MPV 9.9 Absolute Neuts (auto) 3.3 Neutrophils % 55.1 Lymphocytes % 35.1 Monocytes % 7.0 Eosinophils % 2.2 Basophils % 0.6 Nucleated RBC % 0 Sodium Potassium Chloride Carbon Dioxide Anion Gap BUN Creatinine Est GFR (CKD-EPI)AfAm Est GFR (CKD-EPI)NonAf POC Glucometer 156 247 Random Glucose Calcium Phosphorus Magnesium 03/13/20 03/13/20 07:18 11:07 WBC RBC Hgb Hct MCV MCH MCHC RDW Plt Count MPV Absolute Neuts (auto) Neutrophils % Lymphocytes % Monocytes % Eosinophils % Basophils % Nucleated RBC % Sodium 139 Potassium 4.2 Chloride 103 Carbon Dioxide 29 Anion Gap 7 L BUN 25.6 H Creatinine 1.3 Est GFR (CKD-EPI)AfAm 49.86 Est GFR (CKD-EPI)NonAf 43.02 POC Glucometer 188 Random Glucose 126 H Calcium 9.3 Phosphorus 5.0 H Magnesium 2.6 H Active Medications Generic Name Dose Route Start Last Admin Trade Name Daniela PRN Reason Stop Dose Admin Aspirin 81 mg 03/11/20 10:00 03/13/20 10:58 Ecotrin - PO 81 mg DAILY [facility] Administration Atorvastatin Calcium 40 mg 03/11/20 22:00 03/12/20 21:50 Lipitor - PO 40 mg HS [facility] Administration Enoxaparin Sodium 40 mg 03/11/20 10:00 03/13/20 10:59 Lovenox - SQ 40 mg DAILY [facility] Administration Piperacillin Sod/Tazobactam 50 mls @ 100 mls/hr 03/11/20 14:15 03/13/20 10:58 Sod 3.375 gm/ Dextrose IVPB 100 mls/hr Q8H-IV [facility] Administration Protocol Insulin Aspart 1 vial 03/11/20 07:00 03/13/20 11:10 Novolog Vial Sliding Scale - SQ 2 units ACHS [facility] Administration Protocol Insulin Aspart 3 units 03/11/20 16:30 03/13/20 11:04 Novolog SQ 3 units TIDAC [facility] Administration Insulin Detemir 8 units 03/11/20 22:00 03/12/20 21:51 Levemir Vial SQ 8 units HS [facility] Administration Lactobacillus Acidophilus 1 tab 03/11/20 22:00 03/13/20 10:58 Bacid - PO 1 tab BID [facility] Administration Lisinopril 20 mg 03/12/20 10:00 03/13/20 10:59 Prinivil PO 20 mg DAILY [facility] Administration Mupirocin 1 applic 03/12/20 10:00 03/13/20 11:03 Bactroban 2% Ointment - TP 1 applic DAILY [facility] Administration ASSESSMENT/PLAN: Patient is a 64 year old female with past medical history of HTN, HLD, TIA, Left foot OM(Aug 2016), Right foot OM(February 2019 sp ceftriaxone x6wk, HBO), uncontrolled IDDM presented to [facility] with complaint of multiple foot ulcers. #Diabetic foot ulcers - Pending CTA read, vascular sx will offer recs based on findings -ID (Dr. Sainz) consulted. Recommendations appreciated. -IV Zosyn 3.375mg q8h day 2 -Podiatry (Dr. Singh) consulted. -Continue Bactroban and dry sterile dressing to toes daily -Arterial studies performed, waveforms look okay. although additional studies may be indicated -Wound need close follow up at the wound care clinic upon discharge. -Vascular surgery (Dr. Nava) consulted. - (+) signal on doppler and good perfusion - LE ultrasound done- #IDDM - Levemir 8HS, Novolog 3TIDAC with ISS -Endo (Dr. Sky) consulted. #HTN - Lisinopril 20mg daily #HLD - Lipitor 40mg HS #Asymptomatic UTI - On Zosyn #Hx of TIA -Continue Lipitor and ASA #FEN -Diabetic diet #Prophylaxis -Lovenox 40mg #Disposition - full code - med surg Visit type - Emergency Visit Emergency Visit: No - New Patient This patient is new to me today: No - Critical Care Critical Care patient: No ATTENDING PHYSICIAN STATEMENT I saw and evaluated the patient. I reviewed the resident's note and discussed the case with the resident. I agree with the resident's findings and plan as documented. SUBJECTIVE: OBJECTIVE: ASSESSMENT AND PLAN:
[2020-03-13] MEDS: ATORVASTATIN CA 40 MG TABLET (FP) PO SCH (21:42)
[2020-03-13] MEDS: INSULIN (LEVEMIR) 100 UNITS/ML UNITS SQ SCH (21:43)
[2020-03-14] MEDS ORDERED: PIPERACILLIN/TAZOBACTAM 3.375 GM VIAL IVPB ONE ×3 (00:22→16:57)
[2020-03-14] MEDS ORDERED: DEXTROSE 5%-WATER - 50 ML IVPB ONE ×3 (00:22→16:57)
[2020-03-14] MEDS: PIPERACILLIN/TAZOB 3.375 GM 3.375 GM in DEXTROSE 5%-WATER - 50 ML IVPB SCH ×3 (01:00→17:09)
[2020-03-14] MEDS: Insulin (LOG) Aspart 100 UNITS/ML VIAL SQ SCH ×3 (06:20→17:09)
[2020-03-14] MEDS: INSULIN SLIDING SCALE (NOVOLOG) 1 VIAL SQ SCH ×4 (06:20→21:56)
[2020-03-14] MEDS: LISINOPRIL 20 MG TABLET (FP) PO SCH (09:12)
[2020-03-14] MEDS: ASPIRIN COATED 81 MG TABLET.EC PO SCH (09:12)
[2020-03-14] MEDS: MUPIROCIN 2% TOPICAL OINTMENT 22 GM TUBE TP SCH (09:13)
[2020-03-14] MEDS: ENOXAPARIN NA (PORCINE) 40 MG/0.4 ML DISP.SYRIN SQ SCH (09:13)
[2020-03-14] MEDS: LACTOBACILLUS ACIDOPHILUS 1 TABLET PO SCH ×2 (09:13→21:54)
[2020-03-14 09:21] LABS: BASO % 0.8 % (0-2.0); EOS % 2.3 % (0-4.5); HEMATOCRIT 29.3 % (32.4-45.2); LYMPH % 35.5 % (8-40); MCH 32.3 pg (25.7-33.7); MCHC 34.3 g/dl (32.0-36.0); MEAN CELL VOLUME 94.4 fl (80-96); MEAN PLT VOLUME 10.1 fl (7.5-11.1); MONO % 8.7 % (3.8-10.2); NEUT % 52.7 % (42.8-82.8); PLATELET COUNT 211 K/MM3 (134-434); RBC 3.11 M/mm3 (3.60-5.2); RDW 13.1 % (11.6-15.6); WHITE BLOOD COUNT 6.4 K/mm3 (4.0-10.0)
[2020-03-14 09:59] LABS: POTASSIUM 4.1 mmol/L (3.5-5.1)
[2020-03-14 10:13] LABS: ALBUMIN 3.5 g/dl (3.4-5.0); BILIRUBIN,TOTAL 0.8 mg/dL (0.2-1); BLOOD UREA NITROGEN 22.6 mg/dL (7-18); CALCIUM 9.2 mg/dL (8.5-10.1); CREATININE 1.1 mg/dL (0.55-1.3); MAGNESIUM 2.5 mg/dL (1.8-2.4); TOT PROT 7.1 g/dl (6.4-8.2)
[2020-03-14] MEDS ORDERED: INSULIN (NOVOLOG) ASPART 100 UNITS/ML 10ML VIAL ONE ×2 (11:19→17:13)
--- NOTE | 2020-03-14 11:50 | PN ---
Progress Note, Physician History of Present Illness: stable vascular plan noted - Current Medication List Current Medications: Active Medications Aspirin (Ecotrin -) 81 mg PO DAILY [facility] Last Admin: 03/14/20 09:12 Dose: 81 mg Documented by: Atorvastatin Calcium (Lipitor -) 40 mg PO HS [facility] Last Admin: 03/13/20 21:42 Dose: 40 mg Documented by: Enoxaparin Sodium (Lovenox -) 40 mg SQ DAILY [facility] Last Admin: 03/14/20 09:13 Dose: 40 mg Documented by: Piperacillin Sod/Tazobactam (Sod 3.375 gm/ Dextrose) 50 mls @ 100 mls/hr IVPB Q8H-IV [facility]; Protocol Last Admin: 03/14/20 09:12 Dose: 100 mls/hr Documented by: Insulin Aspart (Novolog Vial Sliding Scale -) 1 vial SQ [facility]; Protocol Last Admin: 03/14/20 11:26 Dose: 2 units Documented by: Insulin Aspart (Novolog) 3 units SQ TIDAC [facility] Last Admin: 03/14/20 11:26 Dose: 3 units Documented by: Insulin Detemir (Levemir Vial) 8 units SQ [facility] Last Admin: 03/13/20 21:43 Dose: 8 units Documented by: Lactobacillus Acidophilus (Bacid -) 1 tab PO BID [facility] Last Admin: 03/14/20 09:13 Dose: 1 tab Documented by: Lisinopril (Prinivil) 20 mg PO DAILY [facility] Last Admin: 03/14/20 09:12 Dose: 20 mg Documented by: Mupirocin (Bactroban 2% Ointment -) 1 applic TP DAILY [facility] Last Admin: 03/14/20 09:13 Dose: 1 applic Documented by: - Objective Vital Signs: Vital Signs Temperature 98.7 F 03/14/20 07:00 Pulse Rate 86 03/14/20 07:00 Respiratory Rate 20 03/14/20 07:00 Blood Pressure 122/64 03/14/20 07:00 O2 Sat by Pulse Oximetry (%) 100 03/13/20 21:00 Constitutional: Yes: No Distress, Calm Cardiovascular: Yes: S1, S2 Respiratory: Yes: Regular, CTA Bilaterally Gastrointestinal: Yes: Normal Bowel Sounds, Soft Musculoskeletal: Yes: WNL Extremities: Yes: Other Wound/Incision: Yes: Dressing Dry and Intact Neurological: Yes: Alert, Oriented Psychiatric: Yes: Alert, Oriented Labs: CBC, BMP 03/14/20 08:25 03/14/20 08:25 INR, PTT INR 0.92 (0.83-1.09) 03/10/20 18:12 Assessment/Plan 64F w/ pmh of HTN, HLD, TIA, Left foot OM(Aug 2016), Right foot OM(February 2019 sp ceftriaxone x6wk, HBO), uncontrolled IDDM presented to [facility] with complaint of discoloration of b/l foot wounds. Had wounds x1week with gradual darkening of dorsal surface. No drainage, or foul smell. Admitted for Diabetic Foot Ulcers. #BLE toe diabetic ulcers w/ possible surrounding cellulitis #IDDM uti h/o of tia plan abx wound care as per vascular rest as per the team
--- NOTE | 2020-03-14 12:50 | PN ---
Progress Note (short form) - Note Progress Note: Podiatry F/U: Seen/evaluated at bedside NAD. Pain is controlled. CTA performed LIZET: Pedal pulses weakly palpable, TG wnl, CFT brisk to all digits bilaterally. There is a right second digit diabetic ulcer with underlying granular base, minimal slough, no probing to bone, no purulent drainage, no fluctuance, no streaking ascending cellulitis, no signs of acute infection. There is a left third digit diabetic ulcer with granular base, mild discoloration to the digit periwound, no probing to bone, no purulent drainage, no fluctuance, no streaking ascending cellulitis, no signs of acute infection Imp: 64 year old poorly controlled diabetic female with right second digit diabetic ulcer, left third digit diabetic ulcer Evaluated Stable podiatrically for now f/u vascular will follow as needed.
--- NOTE | 2020-03-14 13:29 | PN ---
Teaching Attending Note Name of Resident: Leroy Paz ATTENDING PHYSICIAN STATEMENT I saw and evaluated the patient. I reviewed the resident's note and discussed the case with the resident. I agree with the resident's findings and plan as documented. SUBJECTIVE: Seen and examined at bedside. no complaints. CTA shows significant PVD inclu ding multiple occluded vessels and an atheroma in the aorta. Pending vascular evaluation OBJECTIVE: Last Vital Signs Temp Pulse Resp BP Pulse Ox 98.4 F 90 18 125/65 98 03/13/20 06:00 03/13/20 06:00 03/13/20 06:00 03/13/20 06:00 03/12/20 21:00 PE: Per resident note Labs/Imaging: Reviewed ASSESSMENT AND PLAN: 64-year-old female history of poorly controlled diabetes, multiple past cases of osteomyelitis, hypertension, hyperlipidemia, TIA presents with bilateral diabetic foot ulcers. #Bilateral diabetic foot ulcers -CTA shows significant PVD including multiple occluded vessels and an atheroma in the aorta. Pending vascular evaluation ID on board: Continue Zosyn Podiatry on board: Appreciate recommendations Bactroban and dry sterile dressing to toes daily May need MRI left foot if the third digit worsens #IDDM: Uncontrolled, non-adherent to treatment A1c 11.8 Long-acting insulin 8 units nightly Lispro 3 units 3 times daily AC Sliding scale #History of TIA Continue aspirin statin #Hypertension Continue lisinopril
[2020-03-14] MEDS ORDERED: ACETAMINOPHEN 325 MG TABLET (FP) PO ONE (15:16)
--- NOTE | 2020-03-14 15:23 | PN ---
Physical Exam: SUBJECTIVE: Patient seen and examined at bedside this morning. No acute events overnight. Patient reports feeling well and has no complaints. OBJECTIVE: Vital Signs Temperature 98.3 F 03/14/20 10:00 Pulse Rate 98 H 03/14/20 10:00 Respiratory Rate 03/14/20 10:00 Blood Pressure 114/70 03/14/20 10:00 O2 Sat by Pulse Oximetry (%) 99 03/14/20 09:00 GENERAL: The patient is awake, alert, and fully oriented, in no acute distress. HEAD: Normal with no signs of trauma. EYES: PERRLA, EOMI, sclera anicteric, conjunctiva clear. NECK: Trachea midline, full range of motion, supple. LUNGS: Breath sounds equal, clear to auscultation bilaterally. HEART: Regular rate and rhythm, S1, S2. ABDOMEN: Soft, nontender, nondistended, normoactive bowel sounds. EXTREMITIES: weakly palpable DP pulses bilaterally, warm, well-perfused, no edema. +non draining, nontender ulcers of the 2nd, 3rd and 4th digits of Right foot, 3rd and 4th digits of Left foot. Sensation intact BLE NEUROLOGICAL: Cranial nerves II through XII grossly intact. Normal speech, normal gait. PSYCH: Normal mood, normal affect. SKIN: Warm, dry, normal turgor. Laboratory Results - last 24 hr 03/13/20 03/13/20 03/14/20 17:04 21:41 05:30 WBC RBC Hgb Hct MCV MCH MCHC RDW Plt Count MPV Absolute Neuts (auto) Neutrophils % Lymphocytes % Monocytes % Eosinophils % Basophils % Nucleated RBC % Sodium Potassium Chloride Carbon Dioxide Anion Gap BUN Creatinine Est GFR (CKD-EPI)AfAm Est GFR (CKD-EPI)NonAf POC Glucometer 166 163 162 Random Glucose Calcium Phosphorus Magnesium Total Bilirubin AST ALT Alkaline Phosphatase Total Protein Albumin 03/14/20 03/14/20 03/14/20 08:25 08:25 11:00 WBC 6.4 RBC 3.11 L Hgb 10.0 L Hct 29.3 L MCV 94.4 MCH 32.3 MCHC 34.3 RDW 13.1 Plt Count 211 MPV 10.1 Absolute Neuts (auto) 3.3 Neutrophils % 52.7 Lymphocytes % 35.5 Monocytes % 8.7 Eosinophils % 2.3 Basophils % 0.8 Nucleated RBC % 0 Sodium 139 Potassium 4.1 Chloride 105 Carbon Dioxide 25 Anion Gap 9 BUN 22.6 H Creatinine 1.1 Est GFR (CKD-EPI)AfAm 61.01 Est GFR (CKD-EPI)NonAf 52.64 POC Glucometer 159 Random Glucose 139 H Calcium 9.2 Phosphorus 4.0 Magnesium 2.5 H Total Bilirubin 0.8 AST 18 ALT 27 Alkaline Phosphatase 67 Total Protein 7.1 Albumin 3.5 Active Medications Generic Name Dose Route Start Last Admin Trade Name Freq PRN Reason Stop Dose Admin Aspirin 81 mg 03/11/20 10:00 03/14/20 09:12 Ecotrin - PO 81 mg DAILY DMITRY Administration Atorvastatin Calcium 40 mg 03/11/20 22:00 03/13/20 21:42 Lipitor - PO 40 mg HS DMITRY Administration Enoxaparin Sodium 40 mg 03/11/20 10:00 03/14/20 09:13 Lovenox - SQ 40 mg DAILY DMITRY Administration Piperacillin Sod/Tazobactam 50 mls @ 100 mls/hr 03/11/20 14:15 03/14/20 09:12 Sod 3.375 gm/ Dextrose IVPB 100 mls/hr Q8H-IV DMITRY Administration Protocol Insulin Aspart 1 vial 03/11/20 07:00 03/14/20 11:26 Novolog Vial Sliding Scale - SQ 2 units ACHS DMITRY Administration Protocol Insulin Aspart 3 units 03/11/20 16:30 03/14/20 11:26 Novolog SQ 3 units TIDAC DMITRY Administration Insulin Detemir 8 units 03/11/20 22:00 03/13/20 21:43 Levemir Vial SQ 8 units HS DMITRY Administration Lactobacillus Acidophilus 1 tab 03/11/20 22:00 03/14/20 09:13 Bacid - PO 1 tab BID DMITRY Administration Lisinopril 20 mg 03/12/20 10:00 03/14/20 09:12 Prinivil PO 20 mg DAILY DMITRY Administration Mupirocin 1 applic 03/12/20 10:00 03/14/20 09:13 Bactroban 2% Ointment - TP 1 applic DAILY DMITRY Administration ASSESSMENT/PLAN: Patient is a 64 year old female with past medical history of HTN, HLD, TIA, Left foot OM(Aug 2016), Right foot OM(February 2019 sp ceftriaxone x6wk, HBO), uncontrolled IDDM presented to [facility] with complaint of multiple foot ulcers. #Diabetic foot ulcers -ID (Dr. Sainz) consulted. Recommendations appreciated. -IV Zosyn 3.375mg q8h day 4 -Podiatry (Dr. Singh) consulted. Recommendations appreciated. -Continue Bactroban and dry sterile dressing to toes daily -Wound need close follow up at the wound care clinic upon discharge. -Vascular surgery (Dr. Nava) consulted. - CTA aorta with BLE runoff - Moderate popliteal atherosclerotic stenotic disease, L>R. 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 Occluded left [employer] PACKER with two-vessel runoff to the foot. #IDDM -uncontrolled; nonadherence to medications, HbA1c 11.8 -Continue Insulin Levemir 8u HS and Novolog 3u TIDAC -Insulin sliding scale -monitor BGMs, and adjust insulin dose as indicated #HTN -continue Lisinopril 20mg daily #HLD -Continue Lipitor 40mg HS #Asymptomatic UTI -protein 1+, gluoce 3+, blood 2+, nitrite positve, LE 3+, WBC 2839, bact 4389, epith 26 -Urine cultures ordered -will monitor off abx #Hx of TIA -Continue Lipitor and ASA #FEN -not on any standing fluids -electrolytes wnl, routine bmp monitoring -Diabetic diet #Prophylaxis -Lovenox 40mg sq daily #Disposition -full code -med surg Visit type - Emergency Visit Emergency Visit: Yes ED Registration Date: 03/10/20 Care time: The patient presented to the Emergency Department on the above date and was hospitalized for further evaluation of their emergent condition. - New Patient This patient is new to me today: No - Critical Care Critical Care patient: No ATTENDING PHYSICIAN STATEMENT I saw and evaluated the patient. I reviewed the resident's note and discussed the case with the resident. I agree with the resident's findings and plan as documented. SUBJECTIVE: OBJECTIVE: ASSESSMENT AND PLAN:
[2020-03-14] MEDS: ATORVASTATIN CA 40 MG TABLET (FP) PO SCH (21:54)
[2020-03-14] MEDS: INSULIN (LEVEMIR) 100 UNITS/ML UNITS SQ SCH (21:55)
[2020-03-15] MEDS ORDERED: DEXTROSE 5%-WATER - 50 ML IVPB ONE ×3 (02:20→17:54)
[2020-03-15] MEDS ORDERED: PIPERACILLIN/TAZOBACTAM 3.375 GM VIAL IVPB ONE ×3 (02:20→17:54)
[2020-03-15] MEDS: PIPERACILLIN/TAZOB 3.375 GM 3.375 GM in DEXTROSE 5%-WATER - 50 ML IVPB SCH ×3 (02:22→17:55)
[2020-03-15] MEDS: Insulin (LOG) Aspart 100 UNITS/ML VIAL SQ SCH ×3 (06:00→16:47)
[2020-03-15] MEDS: INSULIN SLIDING SCALE (NOVOLOG) 1 VIAL SQ SCH ×4 (06:01→22:17)
[2020-03-15 08:25] LABS: BASO % 0.5 % (0-2.0); EOS % 2.1 % (0-4.5); HEMATOCRIT 30.8 % (32.4-45.2); HEMOGLOBIN 10.3 GM/dL (10.7-15.3); LYMPH % 31.3 % (8-40); MCH 31.8 pg (25.7-33.7); MCHC 33.6 g/dl (32.0-36.0); MEAN CELL VOLUME 94.8 fl (80-96); MONO % 9.2 % (3.8-10.2); NEUT % 56.9 % (42.8-82.8); PLATELET COUNT 220 K/MM3 (134-434); RBC 3.25 M/mm3 (3.60-5.2); RDW 13.2 % (11.6-15.6); WHITE BLOOD COUNT 7.8 K/mm3 (4.0-10.0)
[2020-03-15 08:32] LABS: ALBUMIN 3.5 g/dl (3.4-5.0); ALK PHOS 66 U/L (45-117); ANION GAP 6 MMOL/L (8-16); BILIRUBIN,TOTAL 0.8 mg/dL (0.2-1); CHLORIDE 105 mmol/L (98-107); CO2 28 mmol/L (21-32); CREATININE 1.2 mg/dL (0.55-1.3); GLUCOSE,RANDOM 111 mg/dL (74-106); MAGNESIUM 2.5 mg/dL (1.8-2.4); POTASSIUM 4.2 mmol/L (3.5-5.1); SGOT/AST 19 U/L (15-37); SGPT/ALT 28 U/L (13-61); SODIUM 140 mmol/L (136-145); TOT PROT 7.2 g/dl (6.4-8.2)
[2020-03-15] MEDS: ASPIRIN COATED 81 MG TABLET.EC PO SCH (09:26)
[2020-03-15] MEDS: ENOXAPARIN NA (PORCINE) 40 MG/0.4 ML DISP.SYRIN SQ SCH (09:26)
[2020-03-15] MEDS: LACTOBACILLUS ACIDOPHILUS 1 TABLET PO SCH ×2 (09:26→22:17)
[2020-03-15] MEDS: MUPIROCIN 2% TOPICAL OINTMENT 22 GM TUBE TP SCH (09:26)
[2020-03-15] MEDS: LISINOPRIL 20 MG TABLET (FP) PO SCH (09:27)
--- NOTE | 2020-03-15 10:49 | PN ---
Progress Note, Physician History of Present Illness: stable vascular plan noted - Current Medication List Current Medications: Active Medications Aspirin (Ecotrin -) 81 mg PO DAILY [facility] Last Admin: 03/15/20 09:26 Dose: 81 mg Documented by: Atorvastatin Calcium (Lipitor -) 40 mg PO HS [facility] Last Admin: 03/14/20 21:54 Dose: 40 mg Documented by: Enoxaparin Sodium (Lovenox -) 40 mg SQ DAILY [facility] Last Admin: 03/15/20 09:26 Dose: 40 mg Documented by: Piperacillin Sod/Tazobactam (Sod 3.375 gm/ Dextrose) 50 mls @ 100 mls/hr IVPB Q8H-IV [facility]; Protocol Last Admin: 03/15/20 09:27 Dose: 100 mls/hr Documented by: Insulin Aspart (Novolog Vial Sliding Scale -) 1 vial SQ [facility]; Protocol Last Admin: 03/15/20 06:01 Dose: Not Given Documented by: Insulin Aspart (Novolog) 3 units SQ TIDAC [facility] Last Admin: 03/15/20 06:00 Dose: 3 units Documented by: Insulin Detemir (Levemir Vial) 8 units SQ [facility] Last Admin: 03/14/20 21:55 Dose: 8 units Documented by: Lactobacillus Acidophilus (Bacid -) 1 tab PO BID [facility] Last Admin: 03/15/20 09:26 Dose: 1 tab Documented by: Lisinopril (Prinivil) 20 mg PO DAILY [facility] Last Admin: 03/15/20 09:27 Dose: 20 mg Documented by: Mupirocin (Bactroban 2% Ointment -) 1 applic TP DAILY [facility] Last Admin: 03/15/20 09:26 Dose: 1 applic Documented by: - Objective Vital Signs: Vital Signs Temperature 98.1 F 03/15/20 09:07 Pulse Rate 85 03/15/20 09:07 Respiratory Rate 18 03/15/20 09:07 Blood Pressure 107/56 L 03/15/20 09:07 O2 Sat by Pulse Oximetry (%) 99 03/14/20 21:00 Constitutional: Yes: No Distress, Calm Cardiovascular: Yes: S1, S2 Respiratory: Yes: Regular, CTA Bilaterally Gastrointestinal: Yes: Normal Bowel Sounds, Soft Musculoskeletal: Yes: WNL Extremities: Yes: Other Wound/Incision: Yes: Dressing Dry and Intact Neurological: Yes: Alert, Oriented Psychiatric: Yes: Alert, Oriented Labs: CBC, BMP 03/15/20 07:35 03/15/20 07:35 INR, PTT INR 0.92 (0.83-1.09) 03/10/20 18:12 Assessment/Plan 64F w/ pmh of HTN, HLD, TIA, Left foot OM(Aug 2016), Right foot OM(February 2019 sp ceftriaxone x6wk, HBO), uncontrolled IDDM presented to [facility] with complaint of discoloration of b/l foot wounds. Had wounds x1week with gradual darkening of dorsal surface. No drainage, or foul smell. Admitted for Diabetic Foot Ulcers. #BLE toe diabetic ulcers w/ possible surrounding cellulitis #IDDM uti h/o of tia plan abx wound care as per vascular rest as per the team
--- NOTE | 2020-03-15 12:05 | PN ---
Progress Note (short form) - Note Progress Note: Vascular Surgery CTA reviewed. Bilateral infrapopliteal disease. Left leg is worse than right leg. Pt will need angiogram. Please intiate medical clearance. Will book there after. Sam Nava DO
--- NOTE | 2020-03-15 12:39 | PN ---
Physical Exam: SUBJECTIVE: Patient seen and examined at bedside this morning. No acute events overnight. Patient reports feeling well and has no complaints. OBJECTIVE: Vital Signs Temperature 98.1 F 03/15/20 09:07 Pulse Rate 85 03/15/20 09:07 Respiratory Rate 18 03/15/20 09:07 Blood Pressure 107/56 L 03/15/20 09:07 O2 Sat by Pulse Oximetry (%) 99 03/14/20 21:00 GENERAL: The patient is awake, alert, and fully oriented, in no acute distress. HEAD: Normal with no signs of trauma. EYES: PERRLA, EOMI, sclera anicteric, conjunctiva clear. NECK: Trachea midline, full range of motion, supple. LUNGS: Breath sounds equal, clear to auscultation bilaterally. HEART: Regular rate and rhythm, S1, S2. ABDOMEN: Soft, nontender, nondistended, normoactive bowel sounds. EXTREMITIES: weakly palpable DP pulses bilaterally, warm, well-perfused, no edema. +non draining, nontender ulcers of the 2nd, 3rd and 4th digits of Right foot, 3rd and 4th digits of Left foot. Sensation intact BLE NEUROLOGICAL: Cranial nerves II through XII grossly intact. Normal speech, normal gait. PSYCH: Normal mood, normal affect. SKIN: Warm, dry, normal turgor. Laboratory Results - last 24 hr 03/14/20 03/14/20 03/15/20 16:52 21:53 05:58 WBC RBC Hgb Hct MCV MCH MCHC RDW Plt Count MPV Absolute Neuts (auto) Neutrophils % Lymphocytes % Monocytes % Eosinophils % Basophils % Nucleated RBC % Sodium Potassium Chloride Carbon Dioxide Anion Gap BUN Creatinine Est GFR (CKD-EPI)AfAm Est GFR (CKD-EPI)NonAf POC Glucometer 241 190 129 Random Glucose Calcium Phosphorus Magnesium Total Bilirubin AST ALT Alkaline Phosphatase Total Protein Albumin 03/15/20 03/15/20 03/15/20 07:35 07:35 11:23 WBC 7.8 RBC 3.25 L Hgb 10.3 L Hct 30.8 L MCV 94.8 MCH 31.8 MCHC 33.6 RDW 13.2 Plt Count 220 MPV 10.0 Absolute Neuts (auto) 4.4 Neutrophils % 56.9 Lymphocytes % 31.3 Monocytes % 9.2 Eosinophils % 2.1 Basophils % 0.5 Nucleated RBC % 0 Sodium 140 Potassium 4.2 Chloride 105 Carbon Dioxide 28 Anion Gap 6 L BUN 20.0 H Creatinine 1.2 Est GFR (CKD-EPI)AfAm 54.92 Est GFR (CKD-EPI)NonAf 47.39 POC Glucometer 176 Random Glucose 111 H Calcium 9.0 Phosphorus 4.0 Magnesium 2.5 H Total Bilirubin 0.8 AST 19 ALT 28 Alkaline Phosphatase 66 Total Protein 7.2 Albumin 3.5 Active Medications Generic Name Dose Route Start Last Admin Trade Name Daniela PRN Reason Stop Dose Admin Aspirin 81 mg 03/11/20 10:00 03/15/20 09:26 Ecotrin - PO 81 mg DAILY DMITRY Administration Atorvastatin Calcium 40 mg 03/11/20 22:00 03/14/20 21:54 Lipitor - PO 40 mg HS DMITRY Administration Enoxaparin Sodium 40 mg 03/11/20 10:00 03/15/20 09:26 Lovenox - SQ 40 mg DAILY DMITRY Administration Piperacillin Sod/Tazobactam 50 mls @ 100 mls/hr 03/11/20 14:15 03/15/20 09:27 Sod 3.375 gm/ Dextrose IVPB 100 mls/hr Q8H-IV DMITRY Administration Protocol Insulin Aspart 1 vial 03/11/20 07:00 03/15/20 11:27 Novolog Vial Sliding Scale - SQ 2 units ACHS DMITRY Administration Protocol Insulin Aspart 3 units 03/11/20 16:30 03/15/20 11:26 Novolog SQ 3 units TIDAC DMITRY Administration Insulin Detemir 8 units 03/11/20 22:00 03/14/20 21:55 Levemir Vial SQ 8 units HS DMITRY Administration Lactobacillus Acidophilus 1 tab 03/11/20 22:00 03/15/20 09:26 Bacid - PO 1 tab BID DMITRY Administration Lisinopril 20 mg 03/12/20 10:00 03/15/20 09:27 Prinivil PO 20 mg DAILY DMITRY Administration Mupirocin 1 applic 03/12/20 10:00 03/15/20 09:26 Bactroban 2% Ointment - TP 1 applic DAILY DMITRY Administration ASSESSMENT/PLAN: Patient is a 64 year old female with past medical history of HTN, HLD, TIA, Left foot OM(Aug 2016), Right foot OM(February 2019 sp ceftriaxone x6wk, HBO), uncontrolled IDDM presented to [facility] with complaint of multiple foot ulcers. #Diabetic foot ulcers -ID (Dr. Sainz) consulted. Recommendations appreciated. -IV Zosyn 3.375mg q8h day 5 -Podiatry (Dr. Singh) consulted. Recommendations appreciated. -Continue Bactroban and dry sterile dressing to toes daily -Wound need close follow up at the wound care clinic upon discharge. -Vascular surgery (Dr. Nava) consulted. -CTA aorta with BLE runoff - Moderate popliteal atherosclerotic stenotic disease, L>R. Severe infrapopliteal atherosclerotic stenotic disease: Occluded right [place]BER HEWER and peroneal artery with single vessel runoff to the foot. Occluded left TIMBER HEWER with two-vessel runoff to the foot. -Plan for angiogram early next week -will consult cardio (Dr Calabrese) for cardiac clearance #IDDM -uncontrolled; nonadherence to medications, HbA1c 11.8 -Continue Insulin Levemir 8u HS and Novolog 3u TIDAC -Insulin sliding scale -monitor BGMs, and adjust insulin dose as indicated #HTN -continue Lisinopril 20mg daily #HLD -Continue Lipitor 40mg HS #Asymptomatic UTI -protein 1+, gluoce 3+, blood 2+, nitrite positve, LE 3+, WBC 2839, bact 4389, epith 26 -Urine cultures ordered -on IV Zosyn for diabetic foot ulcer #Hx of TIA -Continue Lipitor and ASA #FEN -not on any standing fluids -electrolytes wnl, routine bmp monitoring -Diabetic diet #Prophylaxis -Lovenox 40mg sq daily #Disposition -full code -med surg Visit type - Emergency Visit Emergency Visit: Yes ED Registration Date: 03/10/20 Care time: The patient presented to the Emergency Department on the above date and was hospitalized for further evaluation of their emergent condition. - New Patient This patient is new to me today: No - Critical Care Critical Care patient: No ATTENDING PHYSICIAN STATEMENT I saw and evaluated the patient. I reviewed the resident's note and discussed the case with the resident. I agree with the resident's findings and plan as documented. SUBJECTIVE: OBJECTIVE: ASSESSMENT AND PLAN:
--- NOTE | 2020-03-15 12:54 | PN ---
Teaching Attending Note Name of Resident: Leroy Paz ATTENDING PHYSICIAN STATEMENT I saw and evaluated the patient. I reviewed the resident's note and discussed the case with the resident. I agree with the resident's findings and plan as documented. SUBJECTIVE: Seen and examined at bedside. Patient is RCRI class III (10.1% 30-day risk) and is a moderate risk for a moderate risk procedure. Patient is medically cleared for an angiogram at this time with no additional work-up. If patient requires suprainguinal vascular surgery additional work-up may be required as patient would be higher risk. OBJECTIVE: Last Vital Signs Temp Pulse Resp BP Pulse Ox 98.1 F 85 18 107/56 L 100 03/15/20 09:07 03/15/20 09:07 03/15/20 09:07 03/15/20 09:07 03/15/20 09:00 PE: Per resident note Labs/Imaging: Reviewed ASSESSMENT AND PLAN: 64-year-old female history of poorly controlled diabetes, multiple past cases of osteomyelitis, hypertension, hyperlipidemia, TIA presents with bilateral diabetic foot ulcers. Patient is RCRI class III (10.1% 30-day risk) and is a moderate risk for a moderate risk procedure. Patient is medically cleared for an angiogram at this time with no additional work-up. If patient requires suprainguinal vascular surgery additional work-up may be required as patient would be higher risk. #Bilateral diabetic foot ulcers -CTA shows significant PVD including multiple occluded vessels and an atheroma in the aorta. Pending vascular evaluation ID on board: Continue Zosyn Podiatry on board: Appreciate recommendations Bactroban and dry sterile dressing to toes daily May need MRI left foot if the third digit worsens #IDDM: Uncontrolled, non-adherent to treatment A1c 11.8 Long-acting insulin 8 units nightly Lispro 3 units 3 times daily AC Sliding scale #History of TIA Continue aspirin statin #Hypertension Continue lisinopril
--- NOTE | 2020-03-15 15:30 | CON.CARD ---
Consult Consult Specialty:: cardiology Reason for Consultation:: pre-op consultation - History of Present Illness Chief Complaint: Pt A&Ox3; feels weak; no chest pain or dyspnea. History of Present Illness: 64 year old black female with past medical history of DM, HTN, HLD, TIA, anemia, and osteomyelitis, who presents to the emergency department with wounds to her toes. Patient also notes a change in color to the toes on both feet. She denies recent fevers, chills, headache or dizziness. She denies recent nausea, vomit, diarrhea or constipation. She denies recent dysuria, frequency, urgency or hematuria. She denies recent chest pain or shortness of breath. 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 (chronic intermittent lightheadedness (x 1 year)) Cardio/Vascular: Yes: CAD, HTN, Hyperlipdemia, Other (angina) Pulmonary: No: Asthma, Bronchitis, Cancer, COPD, O2 Dependent, Pneumonia, Previously Intubated, Pulmonary Embolus, Pulmonary Fibrosis, Sleep Apnea, Other Reproductive: Yes: Postmenopausal ...: No Heme/Onc: Yes: Anemia Psych: Yes: Depression ENT: Yes: Other (blind left eye) Endocrine: Yes: Diabetes Mellitus - Past Surgical History Past Surgical History: Yes: None - Alcohol/Substance Use Hx Alcohol Use: No - Smoking History Smoking history: Never smoked Have you smoked in the past 12 months: No Aproximately how many cigarettes per day: 0 Home Medications - Allergies Allergies/Adverse Reactions: Allergies Allergy/AdvReac Type Severity Reaction Status Date / Time lactose AdvReac Verified 03/10/20 16:30 - Home Medications Home Medications: Ambulatory Orders Aspirin [ASA -] 81 mg PO DAILY 08/01/17 Atorvastatin Ca [Lipitor] 40 mg PO HS #30 tablet 08/02/17 Lactobacillus Acidophilus [Bacid -] 1 tab PO BID 06/21/19 Insulin (Novolog) [Novolog -] 0 units SQ ASDIR #3 vial 06/22/19 Insulin Glargine,Hum.rec.anlog [Lantus] 5 unit SQ HS #1 vial 06/22/19 Pantoprazole Sodium [Protonix] 40 mg PO DAILY #30 tablet 06/22/19 metFORMIN XR [Glucophage Xr -] 500 mg PO DAILY@0700 #30 tab.sr.24h 06/22/19 Lisinopril 20 mg PO DAILY 03/11/20 Family Medical History Family History: Denies Review of Systems - Review of Systems Constitutional: reports: Weakness Eyes: reports: No Symptoms HENT: reports: No Symptoms Neck: reports: No Symptoms Cardiovascular: reports: No Symptoms Respiratory: reports: No Symptoms Gastrointestinal: reports: No Symptoms Genitourinary: reports: No Symptoms Breasts: reports: No Symptoms Reported Musculoskeletal: reports: Muscle Weakness Integumentary: reports: Change in Color (toes) Neurological: reports: Weakness Endocrine: reports: No Symptoms Hematology/Lymphatic: reports: No Symptoms Psychiatric: reports: Anxiety - Risk Factors Known Risk Factors: Yes: Age, Diabetes Mellitus, Hypercholesterolemia, Hypertension, Physical Inactivity, Race, Other (PAD) Vital Signs: Vital Signs Temperature 97.8 F 03/15/20 14:40 Pulse Rate 92 H 03/15/20 14:40 Respiratory Rate 18 03/15/20 14:40 Blood Pressure 118/68 03/15/20 14:40 O2 Sat by Pulse Oximetry (%) 100 03/15/20 09:00 Constitutional: Yes: Anxious Eyes: Yes: WNL HENT: Yes: WNL Neck: Yes: WNL Respiratory: Yes: WNL Gastrointestinal: Yes: WNL Renal/: No: Anuria Cardiovascular: Yes: Regular Rate and Rhythm JVD: No Carotid Bruit: No PMI: Non-Displaced Heart Sounds: Yes: S1, S2 Murmur: Yes: Systolic Murmur, Grade 2 Musculoskeletal: Yes: Muscle Weakness, Other (bilateral blackened toes; dressed and dry) Extremities: Yes: Cool Edema: No Peripheral Pulses WNL: No Peripheral Pulses: 1+ Left Doralis Pedis, 1+ Right Dorsalis Pedis Integumentary: Yes: Other Neurological: Yes: Alert, Oriented, Weakness Psychiatric: Yes: WNL - Other Data Labs, Other Data: CBC, BMP 03/15/20 07:35 03/15/20 07:35 INR, PTT INR 0.92 (0.83-1.09) 03/10/20 18:12 Abnormal Lab Results 03/16/20 03/16/20 07:00 07:00 RBC 3.25 L Hgb 10.2 L Hct 30.9 L BUN 24.2 H Random Glucose 174 H Magnesium 2.5 H Echo: Report Reviewed Imaging - Results Chest X-ray: Image Reviewed EKG: Image Reviewed Assessment/Plan Bilateral infrapopliteal artery disease by CTA HTN DM (noncompliant to insulin; HGBA1c very high) Osteomyelitis HLD s/p TIA COVID results pending ECHO 2017: normal LVEF (given EKG changes, will repeat for LVEF, wall motion, valve status) F/u lipids (on statin; keep LDL cholesterol, < 70 mg/dL), TSH EKG: NSR; T wave changes: consider inferolateral ischemia. Repeat EKG in am. F/u troponin: initial is < 0.02 On lisinopril F/u with vascular surgeon
[2020-03-15 16:19] LABS: CHOLESTEROL 227 mg/dL (50-200); HDL CHOLESTEROL 46 mg/dL (40-60); LDL CHOLESTEROL (ONLY SJRH) 150 mg/dL (5-100); TRIGLYCERIDES 135 mg/dL (0-150)
[2020-03-15] MEDS: INSULIN (LEVEMIR) 100 UNITS/ML UNITS SQ SCH (22:17)
[2020-03-15] MEDS: ATORVASTATIN CA 40 MG TABLET (FP) PO SCH (22:17)
[2020-03-15] MEDS ORDERED: INSULIN (NOVOLOG) ASPART 100 UNITS/ML 10ML VIAL ONE (22:20)
[2020-03-16] MEDS ORDERED: PIPERACILLIN/TAZOBACTAM 3.375 GM VIAL IVPB ONE ×3 (01:32→16:33)
[2020-03-16] MEDS ORDERED: DEXTROSE 5%-WATER - 50 ML IVPB ONE ×3 (01:32→16:33)
[2020-03-16] MEDS: PIPERACILLIN/TAZOB 3.375 GM 3.375 GM in DEXTROSE 5%-WATER - 50 ML IVPB SCH ×3 (01:38→17:00)
[2020-03-16] MEDS: Insulin (LOG) Aspart 100 UNITS/ML VIAL SQ SCH ×3 (06:00→16:46)
[2020-03-16] MEDS: INSULIN SLIDING SCALE (NOVOLOG) 1 VIAL SQ SCH ×4 (06:00→21:24)
[2020-03-16 08:05] LABS: BASO % 0.7 % (0-2.0); EOS % 2.3 % (0-4.5); HEMATOCRIT 30.9 % (32.4-45.2); HEMOGLOBIN 10.2 GM/dL (10.7-15.3); LYMPH % 36.6 % (8-40); MCH 31.2 pg (25.7-33.7); MCHC 32.9 g/dl (32.0-36.0); MEAN PLT VOLUME 10.2 fl (7.5-11.1); MONO % 5.9 % (3.8-10.2); NEUT % 54.5 % (42.8-82.8); PLATELET COUNT 242 K/MM3 (134-434); RBC 3.25 M/mm3 (3.60-5.2); RDW 13.3 % (11.6-15.6); WHITE BLOOD COUNT 6.1 K/mm3 (4.0-10.0)
[2020-03-16 08:11] LABS: ALBUMIN 3.6 g/dl (3.4-5.0); BILIRUBIN,TOTAL 0.6 mg/dL (0.2-1); BLOOD UREA NITROGEN 24.2 mg/dL (7-18); CALCIUM 9.1 mg/dL (8.5-10.1); CREATININE 1.3 mg/dL (0.55-1.3); MAGNESIUM 2.5 mg/dL (1.8-2.4); POTASSIUM 4.2 mmol/L (3.5-5.1); TOT PROT 7.4 g/dl (6.4-8.2)
[2020-03-16] MEDS: LISINOPRIL 20 MG TABLET (FP) PO SCH (10:09)
[2020-03-16] MEDS: ASPIRIN COATED 81 MG TABLET.EC PO SCH (10:09)
[2020-03-16] MEDS: ENOXAPARIN NA (PORCINE) 40 MG/0.4 ML DISP.SYRIN SQ SCH (10:09)
[2020-03-16] MEDS: LACTOBACILLUS ACIDOPHILUS 1 TABLET PO SCH ×2 (10:09→21:25)
[2020-03-16] MEDS: MUPIROCIN 2% TOPICAL OINTMENT 22 GM TUBE TP SCH (10:10)
[2020-03-16] MEDS ORDERED: INSULIN (NOVOLOG) ASPART 100 UNITS/ML 10ML VIAL ONE ×2 (11:27→20:51)
--- NOTE | 2020-03-16 13:13 | PN ---
Teaching Attending Note Name of Resident: [place] ATTENDING PHYSICIAN STATEMENT I saw and evaluated the patient. I reviewed the resident's note and discussed the case with the resident. I agree with the resident's findings and plan as documented. SUBJECTIVE: Seen and examined at bedside. No complaints. Pending EKG and echo as part of h is presurgical evaluation. OBJECTIVE: Last Vital Signs Temp Pulse Resp BP Pulse Ox 97.8 F 86 18 121/67 100 03/16/20 10:00 03/16/20 10:03/16/20 10:00 03/16/20 10:03/16/20 09:00 PE: Per resident note Labs/Imaging: Reviewed ASSESSMENT AND PLAN: 64-year-old female history of poorly controlled diabetes, multiple past cases of osteomyelitis, hypertension, hyperlipidemia, TIA presents with bilateral diabetic foot ulcers. Patient is RCRI class III (10.1% 30-day risk) and is a moderate risk for a moderate risk procedure. Patient is medically cleared for an angiogram. Given abnormal EKG pending echocardiogram and cardiology consult prior to clearance for surgery. #Bilateral diabetic foot ulcers -CTA shows significant PVD including multiple occluded vessels and an atheroma in the aorta. ID on board: Continue Zosyn Podiatry on board: Appreciate recommendations Bactroban and dry sterile dressing to toes daily May need MRI left foot if the third digit worsens #IDDM: Uncontrolled, non-adherent to treatment A1c 11.8 Long-acting insulin 8 units nightly Lispro 3 units 3 times daily AC Sliding scale #History of TIA Continue aspirin statin #Hypertension Continue lisinopril
--- NOTE | 2020-03-16 13:15 | PN ---
Progress Note, Physician History of Present Illness: stable no new issues - Current Medication List Current Medications: Active Medications Aspirin (Ecotrin -) 81 mg PO DAILY [facility] Last Admin: 03/16/20 10:09 Dose: 81 mg Documented by: Atorvastatin Calcium (Lipitor -) 40 mg PO HS [facility] Last Admin: 03/15/20 22:17 Dose: 40 mg Documented by: Enoxaparin Sodium (Lovenox -) 40 mg SQ DAILY [facility] Last Admin: 03/16/20 10:09 Dose: 40 mg Documented by: Piperacillin Sod/Tazobactam (Sod 3.375 gm/ Dextrose) 50 mls @ 100 mls/hr IVPB Q8H-IV [facility]; Protocol Last Admin: 03/16/20 10:05 Dose: 100 mls/hr Documented by: Insulin Aspart (Novolog Vial Sliding Scale -) 1 vial SQ [facility]; Protocol Last Admin: 03/16/20 11:34 Dose: 4 units Documented by: Insulin Aspart (Novolog) 3 units SQ TIDAC [facility] Last Admin: 03/16/20 11:35 Dose: 3 units Documented by: Insulin Detemir (Levemir Vial) 8 units SQ [facility] Last Admin: 03/15/20 22:17 Dose: 8 units Documented by: Lactobacillus Acidophilus (Bacid -) 1 tab PO BID [facility] Last Admin: 03/16/20 10:09 Dose: 1 tab Documented by: Lisinopril (Prinivil) 20 mg PO DAILY [facility] Last Admin: 03/16/20 10:09 Dose: 20 mg Documented by: Mupirocin (Bactroban 2% Ointment -) 1 applic TP DAILY [facility] Last Admin: 03/16/20 10:10 Dose: 1 applic Documented by: - Objective Vital Signs: Vital Signs Temperature 97.8 F 03/16/20 10:00 Pulse Rate 86 03/16/20 10:00 Respiratory Rate 18 03/16/20 10:00 Blood Pressure 121/67 03/16/20 10:00 O2 Sat by Pulse Oximetry (%) 100 03/16/20 09:00 Constitutional: Yes: No Distress, Calm Cardiovascular: Yes: S1, S2 Respiratory: Yes: Regular, CTA Bilaterally Gastrointestinal: Yes: Normal Bowel Sounds, Soft Musculoskeletal: Yes: WNL Extremities: Yes: Other Wound/Incision: Yes: Dressing Dry and Intact Neurological: Yes: Alert, Oriented Psychiatric: Yes: Alert, Oriented Labs: CBC, BMP 03/16/20 07:00 03/16/20 07:00 INR, PTT INR 0.92 (0.83-1.09) 03/10/20 18:12 Assessment/Plan 64F w/ pmh of HTN, HLD, TIA, Left foot OM(Aug 2016), Right foot OM(February 2019 sp ceftriaxone x6wk, HBO), uncontrolled IDDM presented to [facility] with complaint of discoloration of b/l foot wounds. Had wounds x1week with gradual darkening of dorsal surface. No drainage, or foul smell. Admitted for Diabetic Foot Ulcers. #BLE toe diabetic ulcers w/ possible surrounding cellulitis #IDDM uti h/o of tia plan abx wound care as per vascular rest as per the team plan for surgery on tuesday
--- NOTE | 2020-03-16 14:09 | PN ---
Physical Exam: SUBJECTIVE: Patient seen and examined at bedside. No acute overnight events. Patient does not endorse any pain, subjective fevers, chills. OBJECTIVE: Vital Signs Period Temp Pulse Resp BP Sys/[place] Pulse Ox Last 24 Hr 97.8 F-98.4 F 84-92 18-18 97-121/58-68 100-100 GENERAL: The patient is awake, alert, in no acute distress. HEAD: Normal with no signs of trauma. EYES: PERRLA, EOMI, sclera anicteric, conjunctiva clear. NECK: Trachea midline, full range of motion, supple. LUNGS: Breath sounds equal, clear to auscultation bilaterally. HEART: Regular rate and rhythm, S1, S2. ABDOMEN: Soft, nontender to palpation. nondistended. EXTREMITIES: Weakly palpable DP pulses bilaterally, warm, well-perfused. No edema. Non draining, nontender ulcers of the 2nd, 3rd and 4th digits of right foot, 3rd and 4th digits of left foot. Sensation intact bilateral lower extremities. NEUROLOGICAL: Cranial nerves II through XII grossly intact. Normal speech, normal gait. PSYCH: Normal mood, normal affect. SKIN: Warm, dry, normal turgor. Laboratory Results - last 24 hr 03/15/20 03/15/20 03/15/20 07:35 12:30 16:44 WBC RBC Hgb Hct MCV MCH MCHC RDW Plt Count MPV Absolute Neuts (auto) Neutrophils % Lymphocytes % Monocytes % Eosinophils % Basophils % Nucleated RBC % Sodium 140 Potassium 4.2 Chloride 105 Carbon Dioxide 28 Anion Gap 6 L BUN 20.0 H Creatinine 1.2 Est GFR (CKD-EPI)AfAm 54.92 Est GFR (CKD-EPI)NonAf 47.39 POC Glucometer 180 Random Glucose 111 H Calcium 9.0 Phosphorus 4.0 Magnesium 2.5 H Total Bilirubin 0.8 AST 19 ALT 28 Alkaline Phosphatase 66 Troponin I < 0.02 Total Protein 7.2 Albumin 3.5 Triglycerides 135 Cholesterol 227 H Total LDL Cholesterol 150 H HDL Cholesterol 46 TSH 1.22 COVID-19 (ALEX) Not detected 03/15/20 03/16/20 03/16/20 22:15 05:59 07:00 WBC 6.1 RBC 3.25 L Hgb 10.2 L Hct 30.9 L MCV 95.0 MCH 31.2 MCHC 32.9 RDW 13.3 Plt Count 242 MPV 10.2 Absolute Neuts (auto) 3.3 Neutrophils % 54.5 Lymphocytes % 36.6 Monocytes % 5.9 Eosinophils % 2.3 Basophils % 0.7 Nucleated RBC % 0 Sodium Potassium Chloride Carbon Dioxide Anion Gap BUN Creatinine Est GFR (CKD-EPI)AfAm Est GFR (CKD-EPI)NonAf POC Glucometer 179 192 Random Glucose Calcium Phosphorus Magnesium Total Bilirubin AST ALT Alkaline Phosphatase Troponin I Total Protein Albumin Triglycerides Cholesterol Total LDL Cholesterol HDL Cholesterol TSH COVID-19 (ALEX) 03/16/20 03/16/20 07:00 11:33 WBC RBC Hgb Hct MCV MCH MCHC RDW Plt Count MPV Absolute Neuts (auto) Neutrophils % Lymphocytes % Monocytes % Eosinophils % Basophils % Nucleated RBC % Sodium 140 Potassium 4.2 Chloride 105 Carbon Dioxide 27 Anion Gap 8 BUN 24.2 H Creatinine 1.3 Est GFR (CKD-EPI)AfAm 49.86 Est GFR (CKD-EPI)NonAf 43.02 POC Glucometer 224 Random Glucose 174 H Calcium 9.1 Phosphorus 4.0 Magnesium 2.5 H Total Bilirubin 0.6 AST 15 ALT 30 Alkaline Phosphatase 71 Troponin I Total Protein 7.4 Albumin 3.6 Triglycerides Cholesterol Total LDL Cholesterol HDL Cholesterol TSH COVID-19 (ALEX) Active Medications Generic Name Dose Route Start Last Admin Trade Name Freq PRN Reason Stop Dose Admin Aspirin 81 mg 03/11/20 10:00 03/16/20 10:09 Ecotrin - PO 81 mg DAILY [facility] Administration Atorvastatin Calcium 40 mg 03/11/20 22:00 03/15/20 22:17 Lipitor - PO 40 mg HS [facility] Administration Enoxaparin Sodium 40 mg 03/11/20 10:00 03/16/20 10:09 Lovenox - SQ 40 mg DAILY [facility] Administration Piperacillin Sod/Tazobactam 50 mls @ 100 mls/hr 03/11/20 14:15 03/16/20 10:05 Sod 3.375 gm/ Dextrose IVPB 100 mls/hr Q8H-IV [facility] Administration Protocol Insulin Aspart 1 vial 03/11/20 07:00 03/16/20 11:34 Novolog Vial Sliding Scale - SQ 4 units ACHS [facility] Administration Protocol Insulin Aspart 3 units 03/11/20 16:30 03/16/20 11:35 Novolog SQ 3 units TIDAC [facility] Administration Insulin Detemir 8 units 03/11/20 22:00 03/15/20 22:17 Levemir Vial SQ 8 units HS [facility] Administration Lactobacillus Acidophilus 1 tab 03/11/20 22:00 03/16/20 10:09 Bacid - PO 1 tab BID [facility] Administration Lisinopril 20 mg 03/12/20 10:00 03/16/20 10:09 Prinivil PO 20 mg DAILY [facility] Administration Mupirocin 1 applic 03/12/20 10:00 03/16/20 10:10 Bactroban 2% Ointment - TP 1 applic DAILY [facility] Administration Imaging: CTA aorta with BLE runoff - Moderate popliteal atherosclerotic stenotic disease, L>R. Severe infrapopliteal atherosclerotic stenotic disease: Occluded right TOOLSMITH and peroneal artery with single vessel runoff to the foot. Occluded left TOOLSMITH with two-vessel runoff to the foot. ASSESSMENT/PLAN: Patient is a 64 year old female with past medical history of hypertension, hyperlipidemia, TIA, bilateral foot osteomyelitis, insulin- dependent diabetes mellitus, admitted for bilateral foot ulcers. #Diabetic foot ulcers -IV Zosyn 3.375mg q8h day 6. CTA reveals diffuse vascular occlusions. -ID (Dr. Sainz) consulted. Recommendations appreciated. -Podiatry (Dr. Singh) consulted. Recommendations appreciated. -Continue Bactroban and dry sterile dressing to toes daily -Vascular surgery (Dr. Nava) consulted. Anticipate angiogram early next week -Cardiology consult (Dr Rodriguez) for cardiac clearance Insulin dependent diabetes mellitus HbA1c 11.8 -Continue Insulin Levemir 8u HS and Novolog 3u TIDAC -Insulin sliding scale ACHS -Fingerstick BGMs Hypertension -Continue Lisinopril 20mg daily Hyperlipidemia -Continue Lipitor 40mg HS Asymptomatic UTI -Urine cultures pending. -Already on IV Zosyn for diabetic foot ulcer History of TIA -Continue ASA and Lipitor FEN -No IV fluids indicated -Follow BMP -Diabetic diet Prophylaxis -Lovenox 40mg sq daily Disposition -Continue care in medical- surgical floor Visit type - Emergency Visit Emergency Visit: Yes ED Registration Date: 03/10/20 Care time: The patient presented to the Emergency Department on the above date and was hospitalized for further evaluation of their emergent condition. - New Patient This patient is new to me today: Yes Date on this admission: 03/16/20 - Critical Care Critical Care patient: No - Discharge Referral Referred to [facility] Med P.C.: No ATTENDING PHYSICIAN STATEMENT I saw and evaluated the patient. I reviewed the resident's note and discussed the case with the resident. I agree with the resident's findings and plan as documented. SUBJECTIVE: OBJECTIVE: ASSESSMENT AND PLAN:
--- NOTE | 2020-03-16 14:29 | EKG ---
Test Reason : Blood Pressure : / mmHG Vent. Rate : 084 BPM Atrial Rate : 084 BPM P-R Int : 192 ms QRS Dur : 082 ms QT Int : 354 ms P-R-T Axes : 061 026 028 degrees QTc Int : 418 ms NORMAL SINUS RHYTHM NONSPECIFIC T WAVE ABNORMALITY ABNORMAL ECG WHEN COMPARED WITH ECG OF 10-MAR-2020 17:50, T WAVE INVERSION NO LONGER EVIDENT IN INFERIOR LEADS Confirmed by MD LISA, ARIANA ([id number]) on 03/16/2020 2:29:22 PM Referred By: Faisal CARDENAS Confirmed By:ARIANA GONZALEZ MD
[2020-03-16] MEDS: ATORVASTATIN CA 40 MG TABLET (FP) PO SCH (21:25)
[2020-03-16] MEDS: INSULIN (LEVEMIR) 100 UNITS/ML UNITS SQ SCH (21:25)
[2020-03-17] MEDS ORDERED: PIPERACILLIN/TAZOBACTAM 3.375 GM VIAL IVPB ONE ×3 (01:13→16:32)
[2020-03-17] MEDS ORDERED: DEXTROSE 5%-WATER - 50 ML IVPB ONE ×3 (01:14→16:32)
[2020-03-17] MEDS: PIPERACILLIN/TAZOB 3.375 GM 3.375 GM in DEXTROSE 5%-WATER - 50 ML IVPB SCH ×3 (01:25→17:14)
--- NOTE | 2020-03-17 01:43 | PN ---
Progress Note, Physician Chief Complaint: Pt A&Ox3;"a little scared" about upcoming vascular procedure. History of Present Illness: 64 year old black female with past medical history of DM, HTN, HLD, TIA, anemia, and osteomyelitis, who presents to the emergency department with wounds to her toes. Patient also notes a change in color to the toes on both feet. She denies recent fevers, chills, headache or dizziness. She denies recent nausea, vomit, diarrhea or constipation. She denies recent dysuria, frequency, urgency or hematuria. She denies recent chest pain or shortness of breath. - Current Medication List Current Medications: Active Medications Aspirin (Ecotrin -) 81 mg PO DAILY [facility] Last Admin: 03/16/20 10:09 Dose: 81 mg Documented by: Atorvastatin Calcium (Lipitor -) 40 mg PO HS [facility] Last Admin: 03/16/20 21:25 Dose: 40 mg Documented by: Enoxaparin Sodium (Lovenox -) 40 mg SQ DAILY [facility] Last Admin: 03/16/20 10:09 Dose: 40 mg Documented by: Piperacillin Sod/Tazobactam (Sod 3.375 gm/ Dextrose) 50 mls @ 100 mls/hr IVPB Q8H-IV [facility]; Protocol Last Admin: 03/17/20 01:25 Dose: 100 mls/hr Documented by: Insulin Aspart (Novolog Vial Sliding Scale -) 1 vial SQ ACHS [facility]; Protocol Last Admin: 03/16/20 21:24 Dose: 2 units Documented by: Insulin Aspart (Novolog) 3 units SQ TIDAC [facility] Last Admin: 03/16/20 16:46 Dose: 3 units Documented by: Insulin Detemir (Levemir Vial) 8 units SQ [facility] Last Admin: 03/16/20 21:25 Dose: 8 units Documented by: Lactobacillus Acidophilus (Bacid -) 1 tab PO BID [facility] Last Admin: 03/16/20 21:25 Dose: 1 tab Documented by: Lisinopril (Prinivil) 20 mg PO DAILY [facility] Last Admin: 03/16/20 10:09 Dose: 20 mg Documented by: Mupirocin (Bactroban 2% Ointment -) 1 applic TP DAILY [facility] Last Admin: 03/16/20 10:10 Dose: 1 applic Documented by: - Objective Vital Signs: Vital Signs Temperature 98.4 F 03/16/20 19:35 Pulse Rate 86 03/16/20 19:35 Respiratory Rate 20 03/16/20 19:35 Blood Pressure 100/57 L 03/16/20 19:35 O2 Sat by Pulse Oximetry (%) 95 03/16/20 19:40 Constitutional: Yes: Anxious Eyes: Yes: WNL HENT: Yes: WNL Neck: Yes: WNL Cardiovascular: Yes: S1, S2, S4 Respiratory: Yes: Regular Gastrointestinal: Yes: Soft ...Rectal Exam: Yes: Deferred Genitourinary: No: Anuria Breast(s): Yes: WNL Musculoskeletal: Yes: Muscle Weakness Extremities: Yes: Cool Edema: No Peripheral Pulses WNL: No Peripheral Pulses: Left Doralis Pedis: 1+, Right Dorsalis Pedis: 1+ Integumentary: Yes: Other Wound/Incision: Yes: Dressing Dry and Intact Neurological: Yes: Alert, Oriented, Weakness Psychiatric: Yes: Alert, Oriented, Other (anxiety) Labs: CBC, BMP 03/16/20 07:00 03/16/20 07:00 INR, PTT INR 0.92 (0.83-1.09) 03/10/20 18:12 - ....Imaging Chest X-ray: Image Reviewed EKG: Image Reviewed Assessment/Plan 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 ECHO 2017: normal LVEF (given EKG changes, will repeat for LVEF, wall motion, valve status) F/u lipids (on statin; keep LDL cholesterol, < 70 mg/dL), TSH initial EKG: NSR; T wave changes: consider inferolateral ischemia; today's EKG shows nonspecific T wave changes; no longer T wave inversions inferiorly F/u troponin: initial is < 0.02 On lisinopril F/u with vascular surgeon.
[2020-03-17] MEDS: INSULIN SLIDING SCALE (NOVOLOG) 1 VIAL SQ SCH ×4 (06:00→22:42)
[2020-03-17] MEDS: Insulin (LOG) Aspart 100 UNITS/ML VIAL SQ SCH ×3 (06:01→17:18)
[2020-03-17 08:23] LABS: HEMATOCRIT 30.1 % (32.4-45.2); HEMOGLOBIN 9.9 GM/dL (10.7-15.3); MCH 31.2 pg (25.7-33.7); MEAN CELL VOLUME 94.5 fl (80-96); MEAN PLT VOLUME 9.8 fl (7.5-11.1); PLATELET COUNT 230 K/MM3 (134-434); RBC 3.18 M/mm3 (3.60-5.2); RDW 13.2 % (11.6-15.6); WHITE BLOOD COUNT 6.2 K/mm3 (4.0-10.0)
--- NOTE | 2020-03-17 08:39 | PN ---
Teaching Attending Note Name of Resident: Liseth March ATTENDING PHYSICIAN STATEMENT I saw and evaluated the patient. I reviewed the resident's note and discussed the case with the resident. I agree with the resident's findings and plan as documented. SUBJECTIVE: Seen and examined at bedside. Feeling well today. Little anxious about surgery tomorrow. EKG showed resolution of T wave inversions and echocardiogram was unremarkable. OBJECTIVE: Last Vital Signs Temp Pulse Resp BP Pulse Ox 98.6 F 86 20 110/63 95 03/17/20 06:12 03/17/20 06:12 03/17/20 06:12 03/17/20 06:12 03/16/20 19:40 PE: Per resident note Labs/Imaging: Reviewed ASSESSMENT AND PLAN: 64-year-old female history of poorly controlled diabetes, multiple past cases of osteomyelitis, hypertension, hyperlipidemia, TIA presents with bilateral diabetic foot ulcers. Patient is RCRI class III (10.1% 30-day risk) and is a moderate risk for a moderate risk procedure. Patient is medically cleared for surgery. #Bilateral diabetic foot ulcers -CTA shows significant PVD including multiple occluded vessels and an atheroma in the aorta. ID on board: Continue Zosyn Podiatry on board: Appreciate recommendations Bactroban and dry sterile dressing to toes daily May need MRI left foot if the third digit worsens #IDDM: Uncontrolled, non-adherent to treatment A1c 11.8 Long-acting insulin 8 units nightly Lispro 3 units 3 times daily AC Sliding scale #History of TIA Continue aspirin statin #Hypertension Continue lisinopril
[2020-03-17 08:57] LABS: ALBUMIN 3.5 g/dl (3.4-5.0); CALCIUM 9.3 mg/dL (8.5-10.1)
[2020-03-17 09:01] LABS: BILIRUBIN,TOTAL 0.7 mg/dL (0.2-1); TOT PROT 7.4 g/dl (6.4-8.2)
--- NOTE | 2020-03-17 09:39 | PN ---
Progress Note, Physician History of Present Illness: Denies chest pain, dyspnea, orthopnea, palpitations, near or true syncope. - Current Medication List Current Medications: Active Medications Aspirin (Ecotrin -) 81 mg PO DAILY [facility] Last Admin: 03/16/20 10:09 Dose: 81 mg Documented by: Atorvastatin Calcium (Lipitor -) 40 mg PO HS [facility] Last Admin: 03/16/20 21:25 Dose: 40 mg Documented by: Enoxaparin Sodium (Lovenox -) 40 mg SQ DAILY [facility] Last Admin: 03/16/20 10:09 Dose: 40 mg Documented by: Piperacillin Sod/Tazobactam (Sod 3.375 gm/ Dextrose) 50 mls @ 100 mls/hr IVPB Q8H-IV [facility]; Protocol Last Admin: 03/17/20 01:25 Dose: 100 mls/hr Documented by: Insulin Aspart (Novolog Vial Sliding Scale -) 1 vial SQ [facility]; Protocol Last Admin: 03/17/20 06:00 Dose: 2 units Documented by: Insulin Aspart (Novolog) 3 units SQ TIDAC [facility] Last Admin: 03/17/20 06:01 Dose: 3 units Documented by: Insulin Detemir (Levemir Vial) 8 units SQ [facility] Last Admin: 03/16/20 21:25 Dose: 8 units Documented by: Lactobacillus Acidophilus (Bacid -) 1 tab PO BID [facility] Last Admin: 03/16/20 21:25 Dose: 1 tab Documented by: Lisinopril (Prinivil) 20 mg PO DAILY [facility] Last Admin: 03/16/20 10:09 Dose: 20 mg Documented by: Mupirocin (Bactroban 2% Ointment -) 1 applic TP DAILY [facility] Last Admin: 03/16/20 10:10 Dose: 1 applic Documented by: - Objective Vital Signs: Vital Signs Temperature 98.6 F 03/17/20 06:12 Pulse Rate 86 03/17/20 06:12 Respiratory Rate 03/17/20 06:12 Blood Pressure 110/63 03/17/20 06:12 O2 Sat by Pulse Oximetry (%) 95 03/16/20 19:40 Constitutional: Yes: No Distress, Calm Neck: Yes: Supple Cardiovascular: Yes: Regular Rate and Rhythm Respiratory: Yes: Regular, CTA Bilaterally Gastrointestinal: Yes: Normal Bowel Sounds, Soft Extremities: Yes: Cyanosis (Left 3rd and 4th toe ischemia) Edema: No Labs: CBC, BMP 03/17/20 07:55 03/17/20 07:55 INR, PTT INR 0.92 (0.83-1.09) 03/10/20 18:12 Problem List - Problems (1) Diabetic toe ulcer Code(s): E11.621 - TYPE 2 DIABETES MELLITUS WITH FOOT ULCER; L97.509 - NON- PRESSURE CHRONIC ULCER OTH PRT UNSP FOOT W UNSP SEVERITY Qualifiers: Diabetes mellitus type: type 2 Laterality: unspecified laterality Non- pressure ulcer stage: unspecified non-pressure ulcer stage Qualified Code(s): E11.621 - Type 2 diabetes mellitus with foot ulcer; L97.509 - Non-pressure chrome cleaner vu ulcer of other part of unspecified foot with unspecified severity (2) Uncontrolled diabetes mellitus Code(s): E11.65 - TYPE 2 DIABETES MELLITUS WITH HYPERGLYCEMIA Qualifiers: Diabetes mellitus type: type 2 Glycemic state: with hyperglycemia Qualified Code(s): E11.65 - Type 2 diabetes mellitus with hyperglycemia (3) Hyperlipidemia Code(s): E78.5 - HYPERLIPIDEMIA, UNSPECIFIED Qualifiers: Hyperlipidemia type: pure hypercholesterolemia Qualified Code(s): E78.00 - Pure hypercholesterolemia, unspecified; E78.0 - Pure hypercholesterolemia (4) Hypertension Code(s): I10 - ESSENTIAL (PRIMARY) HYPERTENSION Qualifiers: Hypertension type: essential hypertension Qualified Code(s): I10 - Essential (primary) hypertension Assessment/Plan ECHO 2017: normal LVEF (given EKG changes, will repeat for LVEF, wall motion, valve status) initial EKG: NSR; T wave changes: consider inferolateral ischemia; today's EKG shows nonspecific T wave changes; no longer T wave inversions inferiorly Pre-procedural CV evaluation prior to left lower extremity angiogram for gangrene of toes Bilateral infrapopliteal artery disease by CTA with BLE toe diabetic ulcers w/ possible surrounding cellulitis HTN DM (noncompliant to insulin; HGBA1c very high) Left foot osteomyelitis 08/2016, Right foot OM(February 2019 sp ceftriaxone x6wk, HBO) HLD s/p TIA COVID not detected. Empiric abx course per C&S, wound care on statin; LDL 150 with compliance questionable Given absence of symptoms of acute coronary syndrome, decompensated CHF or malignant arrhythmia, may proceed with LE angiogram from CV-standpoint w/o further testing On ASA 81 qd, Lipitor 40 qd, lisinopril 20 qd
[2020-03-17] MEDS: LISINOPRIL 20 MG TABLET (FP) PO SCH (10:00)
[2020-03-17] MEDS: ASPIRIN COATED 81 MG TABLET.EC PO SCH (10:00)
[2020-03-17] MEDS: LACTOBACILLUS ACIDOPHILUS 1 TABLET PO SCH ×2 (10:00→22:41)
[2020-03-17] MEDS: ENOXAPARIN NA (PORCINE) 40 MG/0.4 ML DISP.SYRIN SQ SCH (10:01)
--- NOTE | 2020-03-17 10:01 | PN ---
Progress Note (short form) - Note Progress Note: Vascular surgery Pt for left lower extremity angiogram gretchen for gangrene of toes. Awaiting cardiology clearance. Pt is covid negative. NPO past midnight. Sam Nava DO
[2020-03-17] MEDS: MUPIROCIN 2% TOPICAL OINTMENT 22 GM TUBE TP SCH (10:02)
--- NOTE | 2020-03-17 10:09 | PN ---
Progress Note, Physician History of Present Illness: patient stable for surgery tomorrow - Current Medication List Current Medications: Active Medications Aspirin (Ecotrin -) 81 mg PO DAILY [facility] Last Admin: 03/17/20 10:00 Dose: 81 mg Documented by: Atorvastatin Calcium (Lipitor -) 40 mg PO HS [facility] Last Admin: 03/16/20 21:25 Dose: 40 mg Documented by: Enoxaparin Sodium (Lovenox -) 40 mg SQ DAILY [facility] Last Admin: 03/17/20 10:01 Dose: 40 mg Documented by: Piperacillin Sod/Tazobactam (Sod 3.375 gm/ Dextrose) 50 mls @ 100 mls/hr IVPB Q8H-IV [facility]; Protocol Last Admin: 03/17/20 10:00 Dose: 100 mls/hr Documented by: Insulin Aspart (Novolog Vial Sliding Scale -) 1 vial SQ ACHS [facility]; Protocol Last Admin: 03/17/20 06:00 Dose: 2 units Documented by: Insulin Aspart (Novolog) 3 units SQ TIDAC [facility] Last Admin: 03/17/20 06:01 Dose: 3 units Documented by: Insulin Detemir (Levemir Vial) 8 units SQ [facility] Last Admin: 03/16/20 21:25 Dose: 8 units Documented by: Lactobacillus Acidophilus (Bacid -) 1 tab PO BID [facility] Last Admin: 03/17/20 10:00 Dose: 1 tab Documented by: Lisinopril (Prinivil) 20 mg PO DAILY [facility] Last Admin: 03/17/20 10:00 Dose: 20 mg Documented by: Mupirocin (Bactroban 2% Ointment -) 1 applic TP DAILY [facility] Last Admin: 03/17/20 10:02 Dose: 1 applic Documented by: - Objective Vital Signs: Vital Signs Temperature 98.8 F 03/17/20 09:53 Pulse Rate 90 03/17/20 09:53 Respiratory Rate 18 03/17/20 09:53 Blood Pressure 130/72 03/17/20 09:53 O2 Sat by Pulse Oximetry (%) 95 03/16/20 19:40 Constitutional: Yes: No Distress, Calm Cardiovascular: Yes: S1, S2 Respiratory: Yes: Regular, CTA Bilaterally Gastrointestinal: Yes: Normal Bowel Sounds, Soft Musculoskeletal: Yes: WNL Extremities: Yes: Other Neurological: Yes: Alert, Oriented Psychiatric: Yes: Alert, Oriented Labs: CBC, BMP 03/17/20 07:55 03/17/20 07:55 INR, PTT INR 0.92 (0.83-1.09) 03/10/20 18:12 Assessment/Plan 64F w/ pmh of HTN, HLD, TIA, Left foot OM(Aug 2016), Right foot OM(February 2019 sp ceftriaxone x6wk, HBO), uncontrolled IDDM presented to [facility] with complaint of discoloration of b/l foot wounds. Had wounds x1week with gradual darkening of dorsal surface. No drainage, or foul smell. Admitted for Diabetic Foot Ulcers. #BLE toe diabetic ulcers w/ possible surrounding cellulitis #IDDM uti h/o of tia plan abx wound care as per vascular rest as per the team plan for surgery on tuesday
--- NOTE | 2020-03-17 11:09 | ECHO ---
Name: YASSINE BATISTA Exam:Adult Echocardiogram Study Date: 03/17/2020 10:26 AM Age: 64 yrs MMode/2D Measurements & Calculations IVSd: 1.3 cm Ao root diam: 3.1 cm LVIDd: 3.7 cm LA dimension: 2.7 cm LVIDs: 2.6 cm LVPWd: 1.2 cm LVPWs: 1.5 cm EDV(Teich): 57.2 ml ESV(Teich): 24.7 ml LVOT diam: 1.9 cm LAV (MOD-bp): 54.0 ml TAPSE: 2.2 cm RV S Yuniel: 10.3 cm/sec Doppler Measurements & Calculations MV E max yuniel: 79.0 cm/sec Ao V2 max: 109.4 cm/sec MV A max yuniel: 108.6 cm/sec Ao max P.8 mmHg MV E/A: 0.73 DEJA(V,D): 1.8 cm2 MV dec time: 0.08 sec LV V1 max P.9 mmHg MR max yuniel: 344.2 cm/sec LV V1 max: 69.8 cm/sec MR max P.4 mmHg PA V2 max: 96.6 cm/sec Med Peak E' Yuniel: 4.3 cm/sec PA max P.7 mmHg Med E/e': 18.5 Lat Peak E' Yuniel: 8.9 cm/sec Lat E/e': 8.9 Procedure Study Quality: Fair. Left Ventricle The left ventricle is normal in size. There is mild concentric left ventricular hypertrophy. The left ventricular ejection fraction is normal. Ejection Fraction = 55-60%. The transmitral spectral Doppler flow pattern is suggestive of impaired LV relaxation. Right Ventricle The right ventricle is normal in size and function. Atria Normal left and right atrial size and function. Mitral Valve The mitral valve leaflets appear normal. There is no evidence of stenosis, fluttering, or prolapse. T here is trace mitral regurgitation. Tricuspid Valve The tricuspid valve is normal. No tricuspid regurgitation. Aortic Valve The aortic valve is normal in structure and function. Pulmonic Valve The pulmonic valve is not well seen, but is grossly normal. There is no pulmonic valvular regurgitati on. Great Vessels The aortic root is normal size. Pericardium/Pleura There is no pericardial effusion. Interpretation Summary LV: Normal size,mild LVH,normal systolic function,EF 55-60% RV: Nornal Atria: Normal size No significant valvular dysfunction. Oni Garcia 03/17/2020 11:08 AM
[2020-03-17] MEDS ORDERED: INSULIN (NOVOLOG) ASPART 100 UNITS/ML 10ML VIAL ONE ×2 (11:54→21:36)
--- NOTE | 2020-03-17 12:15 | PN ---
Physical Exam: SUBJECTIVE: Patient seen and examined at bedside this morning. No acute events overnight. Patient is anxious about surgery tomorrow, but otherwise feels well and has no complaints. OBJECTIVE: Vital Signs Temperature 98.8 F 03/17/20 09:53 Pulse Rate 90 03/17/20 09:53 Respiratory Rate 18 03/17/20 09:53 Blood Pressure 130/72 03/17/20 09:53 O2 Sat by Pulse Oximetry (%) 95 03/17/20 09:00 GENERAL: The patient is awake, alert, and fully oriented, in no acute distress. HEAD: Normal with no signs of trauma. EYES: PERRLA, EOMI, sclera anicteric, conjunctiva clear. NECK: Trachea midline, full range of motion, supple. LUNGS: Breath sounds equal, clear to auscultation bilaterally. HEART: Regular rate and rhythm, S1, S2. ABDOMEN: Soft, nontender, nondistended, normoactive bowel sounds. EXTREMITIES: weakly palpable DP pulses bilaterally, warm, well-perfused, no edema. +non draining, nontender ulcers of the 2nd, 3rd and 4th digits of Right foot, 3rd and 4th digits of Left foot. Sensation intact BLE NEUROLOGICAL: Cranial nerves II through XII grossly intact. Normal speech, normal gait. PSYCH: Normal mood, normal affect. SKIN: Warm, dry, normal turgor. Laboratory Results - last 24 hr 03/16/20 03/16/20 03/17/20 16:43 21:23 06:00 WBC RBC Hgb Hct MCV MCH MCHC RDW Plt Count MPV Sodium Potassium Chloride Carbon Dioxide Anion Gap BUN Creatinine Est GFR (CKD-EPI)AfAm Est GFR (CKD-EPI)NonAf POC Glucometer 190 184 154 Random Glucose Calcium Total Bilirubin AST ALT Alkaline Phosphatase Total Protein Albumin 03/17/20 03/17/20 03/17/20 07:55 07:55 11:50 WBC 6.2 RBC 3.18 L Hgb 9.9 L Hct 30.1 L MCV 94.5 MCH 31.2 MCHC 33.0 RDW 13.2 Plt Count 230 MPV 9.8 Sodium 142 Potassium 4.0 Chloride 107 Carbon Dioxide 29 Anion Gap 6 L BUN 21.0 H Creatinine 1.0 Est GFR (CKD-EPI)AfAm 68.47 Est GFR (CKD-EPI)NonAf 59.07 POC Glucometer 174 Random Glucose 94 Calcium 9.3 Total Bilirubin 0.7 AST 20 ALT 33 Alkaline Phosphatase 68 Total Protein 7.4 Albumin 3.5 Active Medications Generic Name Dose Route Start Last Admin Trade Name Daniela PRN Reason Stop Dose Admin Aspirin 81 mg 03/11/20 10:00 03/17/20 10:00 Ecotrin - PO 81 mg DAILY [facility]ITRY Administration Atorvastatin Calcium 40 mg 03/11/20 22:00 03/16/20 21:25 Lipitor - PO 40 mg HS DMITRY Administration Enoxaparin Sodium 40 mg 03/11/20 10:00 03/17/20 10:01 Lovenox - SQ 40 mg DAILY [facility]ITRY Administration Piperacillin Sod/Tazobactam 50 mls @ 100 mls/hr 03/11/20 14:15 03/17/20 10:00 Sod 3.375 gm/ Dextrose IVPB 100 mls/hr Q8H-IV [facility]ITRY Administration Protocol Insulin Aspart 1 vial 03/11/20 07:00 03/17/20 11:58 Novolog Vial Sliding Scale - SQ 2 units ACHS DMITRY Administration Protocol Insulin Aspart 3 units 03/11/20 16:30 03/17/20 11:59 Novolog SQ 3 units TIDAC [facility]RY Administration Insulin Detemir 8 units 03/11/20 22:00 03/16/20 21:25 Levemir Vial SQ 8 units HS DMITRY Administration Lactobacillus Acidophilus 1 tab 03/11/20 22:00 03/17/20 10:00 Bacid - PO 1 tab BID [facility]RY Administration Lisinopril 20 mg 03/12/20 10:00 03/17/20 10:00 Prinivil PO 20 mg DAILY [facility]RY Administration Mupirocin 1 applic 03/12/20 10:00 03/17/20 10:02 Bactroban 2% Ointment - TP 1 applic DAILY [facility]RY Administration ASSESSMENT/PLAN: Patient is a 64 year old female with past medical history of HTN, HLD, TIA, Left foot OM(Aug 2016), Right foot OM(February 2019 sp ceftriaxone x6wk, HBO), uncontrolled IDDM presented to [facility] with complaint of multiple foot ulcers. #Diabetic foot ulcers -ID (Dr. Sainz) consulted. Recommendations appreciated. -IV Zosyn 3.375mg q8h day 7 -Podiatry (Dr. Singh) consulted. Recommendations appreciated. -Continue Bactroban and dry sterile dressing to toes daily -Wound need close follow up at the wound care clinic upon discharge. -Vascular surgery (Dr. Nava) consulted. -CTA aorta with BLE runoff - Moderate popliteal atherosclerotic stenotic disease, L>R. 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 Occluded left CLIENT SERVICES ANALYST with two-vessel runoff to the foot. -Plan for angiogram tomorrow -Cardio clearance by Dr. Polo -NPO after midnight #IDDM -uncontrolled; nonadherence to medications, HbA1c 11.8 -Continue Insulin Levemir 8u HS and Novolog 3u TIDAC -Insulin sliding scale ACHS -monitor BGMs, and adjust insulin dose as indicated #HTN -continue Lisinopril 20mg daily #HLD -Continue Lipitor 40mg HS #Asymptomatic UTI -protein 1+, gluoce 3+, blood 2+, nitrite positve, LE 3+, WBC 2839, bact 4389, epith 26 -on IV Zosyn for diabetic foot ulcer #Hx of TIA -Continue Lipitor and ASA #FEN -not on any standing fluids -electrolytes wnl, routine bmp monitoring -Diabetic diet. NPO after midnight #Prophylaxis -Lovenox 40mg sq daily #Disposition -full code -med surg Visit type - Emergency Visit Emergency Visit: Yes ED Registration Date: 03/10/20 Care time: The patient presented to the Emergency Department on the above date and was hospitalized for further evaluation of their emergent condition. - New Patient This patient is new to me today: No - Critical Care Critical Care patient: No ATTENDING PHYSICIAN STATEMENT I saw and evaluated the patient. I reviewed the resident's note and discussed the case with the resident. I agree with the resident's findings and plan as documented. SUBJECTIVE: OBJECTIVE: ASSESSMENT AND PLAN:
[2020-03-17] MEDS: INSULIN (LEVEMIR) 100 UNITS/ML UNITS SQ SCH (22:41)
[2020-03-17] MEDS: ATORVASTATIN CA 40 MG TABLET (FP) PO SCH (22:42)
[2020-03-18] MEDS ORDERED: PIPERACILLIN/TAZOBACTAM 3.375 GM VIAL IVPB ONE ×2 (00:23→09:19)
[2020-03-18] MEDS ORDERED: DEXTROSE 5%-WATER - 50 ML IVPB ONE ×2 (00:23→09:19)
[2020-03-18] MEDS: PIPERACILLIN/TAZOB 3.375 GM 3.375 GM in DEXTROSE 5%-WATER - 50 ML IVPB SCH ×3 (02:48→20:45)
[2020-03-18] MEDS: INSULIN SLIDING SCALE (NOVOLOG) 1 VIAL SQ SCH ×4 (06:34→21:41)
[2020-03-18] MEDS: Insulin (LOG) Aspart 100 UNITS/ML VIAL SQ SCH ×3 (06:36→17:01)
[2020-03-18] MEDS ORDERED: PT OWN MED DRAWER 7, Y5N ONE (09:19)
[2020-03-18] MEDS: LACTOBACILLUS ACIDOPHILUS 1 TABLET PO SCH ×2 (09:24→21:42)
[2020-03-18] MEDS: LISINOPRIL 20 MG TABLET (FP) PO SCH (09:24)
[2020-03-18] MEDS: ASPIRIN COATED 81 MG TABLET.EC PO SCH (09:24)
[2020-03-18] MEDS: MUPIROCIN 2% TOPICAL OINTMENT 22 GM TUBE TP SCH (09:25)
--- NOTE | 2020-03-18 12:30 | PN ---
Progress Note, Physician History of Present Illness: stable for surgery today - Current Medication List Current Medications: Active Medications Aspirin (Ecotrin -) 81 mg PO DAILY [facility] Last Admin: 03/18/20 09:24 Dose: 81 mg Documented by: Atorvastatin Calcium (Lipitor -) 40 mg PO HS [facility] Last Admin: 03/17/20 22:42 Dose: 40 mg Documented by: Enoxaparin Sodium (Lovenox -) 40 mg SQ DAILY [facility] Last Admin: 03/17/20 10:01 Dose: 40 mg Documented by: Piperacillin Sod/Tazobactam (Sod 3.375 gm/ Dextrose) 50 mls @ 100 mls/hr IVPB Q8H-IV [facility]; Protocol Last Admin: 03/18/20 09:25 Dose: 100 mls/hr Documented by: Insulin Aspart (Novolog Vial Sliding Scale -) 1 vial SQ [facility]; Protocol Last Admin: 03/18/20 11:39 Dose: Not Given Documented by: Insulin Aspart (Novolog) 3 units SQ TIDAC [facility] Last Admin: 03/18/20 11:40 Dose: 3 units Documented by: Insulin Detemir (Levemir Vial) 8 units SQ [facility] Last Admin: 03/17/20 22:41 Dose: 8 units Documented by: Lactobacillus Acidophilus (Bacid -) 1 tab PO BID [facility] Last Admin: 03/18/20 09:24 Dose: 1 tab Documented by: Lisinopril (Prinivil) 20 mg PO DAILY [facility] Last Admin: 03/18/20 09:24 Dose: 20 mg Documented by: Mupirocin (Bactroban 2% Ointment -) 1 applic TP DAILY [facility] Last Admin: 03/18/20 09:25 Dose: 1 applic Documented by: - Objective Vital Signs: Vital Signs Temperature 98.1 F 03/18/20 06:00 Pulse Rate 94 H 03/18/20 06:00 Respiratory Rate 18 03/18/20 09:00 Blood Pressure 132/78 03/18/20 06:00 O2 Sat by Pulse Oximetry (%) 97 03/18/20 09:00 Constitutional: Yes: No Distress, Calm Cardiovascular: Yes: S1, S2 Respiratory: Yes: Regular, CTA Bilaterally Gastrointestinal: Yes: Normal Bowel Sounds, Soft Musculoskeletal: Yes: WNL Extremities: Yes: Other Wound/Incision: Yes: Dressing Dry and Intact Neurological: Yes: Alert, Oriented Psychiatric: Yes: Alert, Oriented Labs: CBC, BMP 03/17/20 07:55 03/17/20 07:55 INR, PTT INR 0.92 (0.83-1.09) 03/10/20 18:12 Assessment/Plan 64F w/ pmh of HTN, HLD, TIA, Left foot OM(Aug 2016), Right foot OM(February 2019 sp ceftriaxone x6wk, HBO), uncontrolled IDDM presented to [facility] with complaint of discoloration of b/l foot wounds. Had wounds x1week with gradual darkening of dorsal surface. No drainage, or foul smell. Admitted for Diabetic Foot Ulcers. #BLE toe diabetic ulcers w/ possible surrounding cellulitis #IDDM uti h/o of tia plan abx wound care as per vascular rest as per the team plan for surgery today
--- NOTE | 2020-03-18 12:35 | PN ---
Physical Exam: SUBJECTIVE: Patient seen and examined at bedside this morning, No acute events overnight. Patient reports feeling well, a little anxious about surgery, but otherwise has no complaints. OBJECTIVE: Vital Signs Temperature 98.1 F 03/18/20 06:00 Pulse Rate 94 H 03/18/20 06:00 Respiratory Rate 18 03/18/20 09:00 Blood Pressure 132/78 03/18/20 06:00 O2 Sat by Pulse Oximetry (%) 97 03/18/20 09:00 GENERAL: The patient is awake, alert, and fully oriented, in no acute distress. HEAD: Normal with no signs of trauma. EYES: PERRLA, EOMI, sclera anicteric, conjunctiva clear. NECK: Trachea midline, full range of motion, supple. LUNGS: Breath sounds equal, clear to auscultation bilaterally. HEART: Regular rate and rhythm, S1, S2. ABDOMEN: Soft, nontender, nondistended, normoactive bowel sounds. EXTREMITIES: weakly palpable DP pulses bilaterally, warm, well-perfused, no edema. +non draining, nontender ulcers of the 2nd, 3rd and 4th digits of Right foot, 3rd and 4th digits of Left foot. Sensation intact BLE NEUROLOGICAL: Cranial nerves II through XII grossly intact. Normal speech, normal gait. PSYCH: Normal mood, normal affect. SKIN: Warm, dry, normal turgor. Laboratory Results - last 24 hr 03/17/20 03/17/20 03/18/20 17:16 22:41 06:35 POC Glucometer 152 105 131 03/18/20 11:39 POC Glucometer 131 Active Medications Generic Name Dose Route Start Last Admin Trade Name Daniela PRN Reason Stop Dose Admin Aspirin 81 mg 03/11/20 10:00 03/18/20 09:24 Ecotrin - PO 81 mg DAILY [facility]IT[facility] Administration Atorvastatin Calcium 40 mg 03/11/20 22:00 03/17/20 22:42 Lipitor - PO 40 mg HS DMITRY Administration Enoxaparin Sodium 40 mg 03/11/20 10:00 03/17/20 10:01 Lovenox - SQ 40 mg DAILY DMITRY Administration Piperacillin Sod/Tazobactam 50 mls @ 100 mls/hr 03/11/20 14:15 03/18/20 09:25 Sod 3.375 gm/ Dextrose IVPB 100 mls/hr Q8H-IV DMITRY Administration Protocol Insulin Aspart 1 vial 03/11/20 07:00 03/18/20 11:39 Novolog Vial Sliding Scale - SQ Not Given ACHS [facility] Protocol Insulin Aspart 3 units 03/11/20 16:30 03/18/20 11:40 Novolog SQ 3 units TIDAC DMITRY Administration Insulin Detemir 8 units 03/11/20 22:00 03/17/20 22:41 Levemir Vial SQ 8 units HS DMITRY Administration Lactobacillus Acidophilus 1 tab 03/11/20 22:00 03/18/20 09:24 Bacid - PO 1 tab BID DM[facility]RY Administration Lisinopril 20 mg 03/12/20 10:00 03/18/20 09:24 Prinivil PO 20 mg DAILY [facility] Administration Mupirocin 1 applic 03/12/20 10:00 03/18/20 09:25 Bactroban 2% Ointment - TP 1 applic DAILY [facility] Administration ASSESSMENT/PLAN: Patient is a 64 year old female with past medical history of HTN, HLD, TIA, Left foot OM(Aug 2016), Right foot OM(February 2019 sp ceftriaxone x6wk, HBO), uncontrolled IDDM presented to [facility] with complaint of multiple foot ulcers. #Diabetic foot ulcers -ID (Dr. Sainz) consulted. Recommendations appreciated. -IV Zosyn 3.375mg q8h day 8 -Podiatry (Dr. Singh) consulted. Recommendations appreciated. -Continue Bactroban and dry sterile dressing to toes daily -Wound need close follow up at the wound care clinic upon discharge. -Vascular surgery (Dr. Nava) consulted. -CTA aorta with BLE runoff - Moderate popliteal atherosclerotic stenotic disease, L>R. 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 Occluded left STABILIZING MACHINE OPERATOR with two-vessel runoff to the foot. -Plan for angiogram today #IDDM -uncontrolled; nonadherence to medications, HbA1c 11.8 -Continue Insulin Levemir 8u HS and Novolog 3u TIDAC -Insulin sliding scale ACHS -monitor BGMs, and adjust insulin dose as indicated #HTN -continue Lisinopril 20mg daily #HLD -Continue Lipitor 40mg HS #Asymptomatic UTI -protein 1+, gluoce 3+, blood 2+, nitrite positve, LE 3+, WBC 2839, bact 4389, epith 26 -on IV Zosyn #Hx of TIA -Continue Lipitor and ASA #FEN -not on any standing fluids -electrolytes wnl, routine bmp monitoring -Diabetic diet. #Prophylaxis -Lovenox 40mg sq daily #Disposition -full code -med surg Visit type - Emergency Visit Emergency Visit: Yes ED Registration Date: 03/10/20 Care time: The patient presented to the Emergency Department on the above date and was hospitalized for further evaluation of their emergent condition. - New Patient This patient is new to me today: No - Critical Care Critical Care patient: No ATTENDING PHYSICIAN STATEMENT I saw and evaluated the patient. I reviewed the resident's note and discussed the case with the resident. I agree with the resident's findings and plan as documented. SUBJECTIVE: OBJECTIVE: ASSESSMENT AND PLAN:
[2020-03-18] MEDS ORDERED: LIDOCAINE HCL 1%, 10 MG/ML (20ML VIAL) ONE (13:03)
[2020-03-18] MEDS ORDERED: HEPARIN NA (PORCINE) 5,000 UNITS/ML 1ML VIAL ONE (14:11)
--- NOTE | 2020-03-18 14:33 | PN ---
Progress Note, Physician Chief Complaint: Events noted Not in distress History of Present Illness: Patient was seen and examined. Awake and alert. Chart was reviewed Denies chest pain, SOB or palpitations - Current Medication List Current Medications: Active Medications Aspirin (Ecotrin -) 81 mg PO DAILY [facility] Last Admin: 03/18/20 09:24 Dose: 81 mg Documented by: Atorvastatin Calcium (Lipitor -) 40 mg PO HS [facility] Last Admin: 03/17/20 22:42 Dose: 40 mg Documented by: Enoxaparin Sodium (Lovenox -) 40 mg SQ DAILY [facility] Last Admin: 03/17/20 10:01 Dose: 40 mg Documented by: Piperacillin Sod/Tazobactam (Sod 3.375 gm/ Dextrose) 50 mls @ 100 mls/hr IVPB Q8H-IV [facility]; Protocol Last Admin: 03/18/20 09:25 Dose: 100 mls/hr Documented by: Insulin Aspart (Novolog Vial Sliding Scale -) 1 vial SQ ACHS [facility]; Protocol Last Admin: 03/18/20 11:39 Dose: Not Given Documented by: Insulin Aspart (Novolog) 3 units SQ TIDAC [facility] Last Admin: 03/18/20 11:40 Dose: 3 units Documented by: Insulin Detemir (Levemir Vial) 8 units SQ HS [facility] Last Admin: 03/17/20 22:41 Dose: 8 units Documented by: Lactobacillus Acidophilus (Bacid -) 1 tab PO BID [facility] Last Admin: 03/18/20 09:24 Dose: 1 tab Documented by: Lisinopril (Prinivil) 20 mg PO DAILY [facility] Last Admin: 03/18/20 09:24 Dose: 20 mg Documented by: Mupirocin (Bactroban 2% Ointment -) 1 applic TP DAILY [facility] Last Admin: 03/18/20 09:25 Dose: 1 applic Documented by: - Objective Vital Signs: Vital Signs Temperature 98.1 F 03/18/20 06:00 Pulse Rate 94 H 03/18/20 06:00 Respiratory Rate 18 03/18/20 09:00 Blood Pressure 132/78 03/18/20 06:00 O2 Sat by Pulse Oximetry (%) 97 03/18/20 09:00 Eyes: Yes: PERRL Neck: Yes: Supple Cardiovascular: Yes: Regular Rate and Rhythm, S1, S2 Respiratory: Yes: CTA Bilaterally Gastrointestinal: Yes: Normal Bowel Sounds, Soft. No: Tenderness Edema: No Labs: CBC, BMP 03/17/20 07:55 03/17/20 07:55 Problem List - Problems (1) Diabetic toe ulcer Code(s): E11.621 - TYPE 2 DIABETES MELLITUS WITH FOOT ULCER; L97.509 - NON- PRESSURE CHRONIC ULCER OTH PRT UNSP FOOT W UNSP SEVERITY Qualifiers: Diabetes mellitus type: type 2 Laterality: unspecified laterality Non- pressure ulcer stage: unspecified non-pressure ulcer stage Qualified Code(s): E11.621 - Type 2 diabetes mellitus with foot ulcer; L97.509 - Non-pressure chronic ulcer of other part of unspecified foot with unspecified severity (2) CAD (coronary artery disease) Code(s): I25.10 - ATHSCL HEART DISEASE OF [place] CORONARY ARTERY W/O ANG PCTRS (3) Hyperlipidemia Code(s): E78.5 - HYPERLIPIDEMIA, UNSPECIFIED Qualifiers: Hyperlipidemia type: pure hypercholesterolemia Qualified Code(s): E78.00 - Pure hypercholesterolemia, unspecified; E78.0 - Pure hypercholesterolemia (4) Hypertension Code(s): I10 - ESSENTIAL (PRIMARY) HYPERTENSION Qualifiers: Hypertension type: essential hypertension Qualified Code(s): I10 - Essential (primary) hypertension (5) Cellulitis Code(s): L03.90 - CELLULITIS, UNSPECIFIED Assessment/Plan 1. 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 HTN 3. DM 4. History of TIA 5. Hyperlipidemia PLAN: 1. Empiric antibiotics 2. Continue Atorvastatin 40 mg QHS 3. ASA 4. DVT prophylaxis 5. Proceed with LE angiogram as outlined Further plans are to follow Austen Calabrese MD
--- NOTE | 2020-03-18 15:34 | PN ---
Teaching Attending Note Name of Resident: Liseth March ATTENDING PHYSICIAN STATEMENT I saw and evaluated the patient. I reviewed the resident's note and discussed the case with the resident. I agree with the resident's findings and plan as documented. SUBJECTIVE: Feeling well. Denies foot/toe pain. No fever/chills. OBJECTIVE: Afebrile, Hemodynamically Stable. Last Vital Signs Temp Pulse Resp BP Pulse Ox 98.1 F 94 H 18 132/78 97 03/18/20 06:00 03/18/20 06:00 03/18/20 09:00 03/18/20 06:00 03/18/20 09:00 HEENT - Atraumatic, Normocephalic. Heart - S1, S2, RRR Lungs - clear to auscultation Abdomen - Soft, non-tender. Bowel Sounds normal. Extremities - no calf tenderness, bilateral toe ulceration/discoloration (R 2nd/3rd/4th toes; L 3rd toe) Neuro - AAO x 3. Tone/Power normal. Laboratory Results - last 24 hr 03/17/20 03/17/20 03/18/20 17:16 22:41 06:35 POC Glucometer 152 105 131 03/18/20 11:39 POC Glucometer 131 Current Medications Generic Name Dose Route Start Last Admin Trade Name Somq PRN Reason Stop Dose Admin Aspirin 81 mg 03/11/20 10:00 03/18/20 09:24 Ecotrin - PO 81 mg DAILY [facility] Administration Atorvastatin Calcium 40 mg 03/11/20 22:00 03/17/20 22:42 Lipitor - PO 40 mg HS [facility] Administration Enoxaparin Sodium 40 mg 03/11/20 10:00 03/17/20 10:01 Lovenox - SQ 40 mg DAILY [facility] Administration Piperacillin Sod/Tazobactam 50 mls @ 100 mls/hr 03/11/20 14:15 03/18/20 09:25 Sod 3.375 gm/ Dextrose IVPB 100 mls/hr Q8H-IV [facility] Administration Protocol Insulin Aspart 1 vial 03/11/20 07:00 03/18/20 11:39 Novolog Vial Sliding Scale - SQ Not Given ACHS [facility] Protocol Insulin Aspart 3 units 03/11/20 16:30 03/18/20 11:40 Novolog SQ 3 units TIDAC [facility] Administration Insulin Detemir 8 units 03/11/20 22:00 03/17/20 22:41 Levemir Vial SQ 8 units HS [facility] Administration Lactobacillus Acidophilus 1 tab 03/11/20 22:00 03/18/20 09:24 Bacid - PO 1 tab BID [facility] Administration Lisinopril 20 mg 03/12/20 10:00 03/18/20 09:24 Prinivil PO 20 mg DAILY [facility] Administration Mupirocin 1 applic 03/12/20 10:00 03/18/20 09:25 Bactroban 2% Ointment - TP 1 applic DAILY [facility] Administration Home Medications Medication Instructions Recorded Aspirin [ASA -] 81 mg PO DAILY 08/01/17 Atorvastatin Ca [Lipitor] 40 mg PO HS #30 tablet 08/02/17 Lactobacillus Acidophilus [Bacid -] 1 tab PO BID 06/21/19 Pantoprazole Sodium [Protonix] 40 mg PO DAILY #30 tablet. 06/22/19 metFORMIN XR [Glucophage Xr -] 500 mg PO DAILY@0700 #30 tab.sr.24h 06/22/19 Lisinopril 20 mg PO DAILY 03/11/20 Atorvastatin Ca [Lipitor] 40 mg PO HS #30 tablet 03/18/20 Insulin Glargine,Hum.rec.anlog 8 unit SQ HS #1 vial 03/18/20 [Lantus] Mupirocin Ointment [Bactroban 2% 1 applic TP DAILY #1 tube 03/18/20 Ointment -] ASSESSMENT AND PLAN: 64-year-old female history of poorly controlled DM 2, history of recurrent osteomyelitis, hypertension, hyperlipidemia, Hx TIA, presents with bilateral diabetic foot ulcers/?gangrenous toes. 1. Bilateral gangrenous toes/ulcers CTA shows significant PVD including multiple occluded vessels and an atheroma in the aorta. Zosyn as per ID LE Angiogram scheduled today. 2. DM 2 - Uncontrolled, A1C 11.8 Continue Levemir/Novolog as per sliding scale. Metformin held. 3. Hx of TIA - Continue Aspirin, Statin. 4. HTN - Continue Lisinopril. 5. HLD - Continue Lipitor. DVT Px - Lovenox SQ
[2020-03-18] MEDS ORDERED: PROPOFOL 20 ML ONE (16:03)
[2020-03-18] MEDS ORDERED: ceFAZolin SODIUM 1 GM VIAL ONE (16:03)
[2020-03-18] MEDS ORDERED: MIDAZOLAM HCL 2 MG/2 ML SINGLE DOSE VIAL ONE (16:03)
[2020-03-18] MEDS ORDERED: SODIUM CHLORIDE 0.9% P/F 10 ML VIAL IJ ONE (16:03)
[2020-03-18] MEDS ORDERED: SUCCINYLCHOLINE CHLORIDE 200 MG/10 ML SYRINGE ONE (16:03)
[2020-03-18] MEDS ORDERED: ONDANSETRON 4 MG/2 ML VIAL IVPUSH PRN ×2 (17:31→18:59)
[2020-03-18] MEDS ORDERED: ceFAZolin SODIUM 1 GM VIAL IVPB ONE (17:33)
--- NOTE | 2020-03-18 18:27 | OP ---
Operative Note - Note: Operative Date: 03/18/20 Pre-Operative Diagnosis: left foot toe ulcers Operation: Aortogram, LLE angiogram, anterior tibial artery angioplasty Findings: one vessel runoff. AT to foot Post-Operative Diagnosis: Same as Pre-op Surgeon: Sam Nava Anesthesia: Fractional Estimated Blood Loss (mls): 50 Operative Report Dictated: Yes
--- NOTE | 2020-03-18 18:30 | PN ---
Progress Note (short form) - Note Progress Note: Vascular surgery S/P angioplasty . Plavix started. Please send pt home on plavix. Bactroban to foot ulcers. Pt can be DC home in am. Follow up in clinic in one week. call for appt -- [phone] [address]. Sam Nava DO
[2020-03-18] MEDS ORDERED: CLOPIDOGREL BISULFATE 75 MG TABLET (FP) ONE (18:57)
[2020-03-18] MEDS: CLOPIDOGREL BISULFATE 75 MG TABLET (FP) PO SCH ×2 (19:00→20:26)
[2020-03-18] MEDS ORDERED: oxyCODONE HCL 5 MG TABLET PO PRN (21:16)
[2020-03-18] MEDS ORDERED: ATORVASTATIN CA 40 MG TABLET (FP) PO SCH (22:00)
[2020-03-18] MEDS ORDERED: INSULIN (LEVEMIR) 100 UNITS/ML UNITS SQ SCH (22:00)
[2020-03-19] MEDS ORDERED: PIPERACILLIN/TAZOBACTAM 3.375 GM VIAL IVPB ONE ×2 (01:22→09:21)
[2020-03-19] MEDS ORDERED: DEXTROSE 5%-WATER - 50 ML IVPB ONE ×2 (01:23→09:21)
[2020-03-19] MEDS: PIPERACILLIN/TAZOB 3.375 GM 3.375 GM in DEXTROSE 5%-WATER - 50 ML IVPB SCH ×2 (02:03→10:50)
[2020-03-19] MEDS ORDERED: oxyCODONE HCL 5 MG TABLET PO PRN (02:06)
[2020-03-19 08:27] LABS: BLOOD UREA NITROGEN 16.4 mg/dL (7-18); CALCIUM 9.1 mg/dL (8.5-10.1); MAGNESIUM 2.4 mg/dL (1.8-2.4); PHOSPHOROUS 4.3 mg/dL (2.5-4.9); POTASSIUM 3.8 mmol/L (3.5-5.1)
[2020-03-19 08:28] LABS: BASO % 0.7 % (0-2.0); EOS % 2.9 % (0-4.5); HEMATOCRIT 27.2 % (32.4-45.2); HEMOGLOBIN 9.1 GM/dL (10.7-15.3); MCH 31.9 pg (25.7-33.7); MCHC 33.5 g/dl (32.0-36.0); MEAN CELL VOLUME 95.1 fl (80-96); MONO % 8.2 % (3.8-10.2); NEUT % 63.2 % (42.8-82.8); PLATELET COUNT 211 K/MM3 (134-434); RBC 2.86 M/mm3 (3.60-5.2); RDW 13.4 % (11.6-15.6); WHITE BLOOD COUNT 7.6 K/mm3 (4.0-10.0)
[2020-03-19] MEDS ORDERED: LISINOPRIL 20 MG TABLET (FP) PO SCH (10:00)
[2020-03-19] MEDS ORDERED: ENOXAPARIN NA (PORCINE) 40 MG/0.4 ML DISP.SYRIN SQ SCH (10:00)
[2020-03-19] MEDS ORDERED: ASPIRIN COATED 81 MG TABLET.EC PO SCH (10:00)
[2020-03-19] MEDS ORDERED: MUPIROCIN 2% TOPICAL OINTMENT 22 GM TUBE TP SCH (10:00)
--- NOTE | 2020-03-19 10:36 | PN ---
Progress Note (short form) - Note Progress Note: Anesthesia POD#1 S/P Left Lower Extremity Angiogram under MAC VSS,No pain, no N/V No pain. Rica Rapp MD.
[2020-03-19] MEDS: LACTOBACILLUS ACIDOPHILUS 1 TABLET PO SCH (10:47)
[2020-03-19] MEDS: CLOPIDOGREL BISULFATE 75 MG TABLET (FP) PO SCH (10:48)
--- NOTE | 2020-03-19 11:04 | PN ---
Progress Note, Physician History of Present Illness: Denies chest pain, dyspnea, orthopnea, palpitations, near or true syncope. 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 - Current Medication List Current Medications: Active Medications Aspirin (Ecotrin -) 81 mg PO DAILY [facility] Last Admin: 03/19/20 10:48 Dose: 81 mg Documented by: Atorvastatin Calcium (Lipitor -) 40 mg PO [facility] Last Admin: 03/18/20 21:41 Dose: 40 mg Documented by: Clopidogrel Bisulfate (Plavix -) 75 mg PO DAILY [facility] Last Admin: 03/19/20 10:48 Dose: 75 mg Documented by: Enoxaparin Sodium (Lovenox -) 40 mg SQ DAILY [facility] Fentanyl (Sublimaze Injection -) 25 mcg IVPUSH [id number] PRN PRN Reason: PAIN-PACU ORDER X 4 DOSES ONLY Piperacillin Sod/Tazobactam (Sod 3.375 gm/ Dextrose) 50 mls @ 100 mls/hr IVPB Q8H-IV [facility]; Protocol Last Admin: 03/19/20 10:50 Dose: 100 mls/hr Documented by: Insulin Aspart (Novolog) 3 units SQ TIDAC [facility] Insulin Aspart (Novolog Vial Sliding Scale -) 1 vial SQ [facility]; Protocol Last Admin: 03/18/20 21:41 Dose: Not Given Documented by: Insulin Detemir (Levemir Vial) 8 units SQ [facility] Last Admin: 03/18/20 22:56 Dose: Not Given Documented by: Lactobacillus Acidophilus (Bacid -) 1 tab PO BID [facility] Last Admin: 03/19/20 10:47 Dose: 1 tab Documented by: Lisinopril (Prinivil) 20 mg PO DAILY [facility] Last Admin: 03/19/20 10:48 Dose: 20 mg Documented by: Mupirocin (Bactroban 2% Ointment -) 1 applic TP DAILY [facility] Last Admin: 03/19/20 10:49 Dose: 1 applic Documented by: Ondansetron HCl (Zofran Injection) 4 mg IVPUSH Q6H PRN PRN Reason: NAUSEA AND/OR VOMITING - Objective Vital Signs: Vital Signs Temperature 98.4 F 03/19/20 05:50 Pulse Rate 93 H 03/19/20 06:11 Respiratory Rate 18 03/19/20 05:50 Blood Pressure 150/84 03/19/20 06:11 O2 Sat by Pulse Oximetry (%) 97 03/18/20 21:00 Constitutional: Yes: No Distress, Calm Neck: Yes: Supple Cardiovascular: Yes: Regular Rate and Rhythm Respiratory: Yes: Regular, CTA Bilaterally Gastrointestinal: Yes: Normal Bowel Sounds, Soft Edema: No Wound/Incision: Yes: Dressing Dry and Intact Labs: CBC, BMP 03/19/20 07:00 03/19/20 07:00 INR, PTT INR 0.92 (0.83-1.09) 03/10/20 18:12 Problem List - Problems (1) Diabetic toe ulcer Code(s): E11.621 - TYPE 2 DIABETES MELLITUS WITH FOOT ULCER; L97.509 - NON- PRESSURE CHRONIC ULCER OTH PRT UNSP FOOT W UNSP SEVERITY Qualifiers: Diabetes mellitus type: type 2 Laterality: unspecified laterality Non- pressure ulcer stage: unspecified non-pressure ulcer stage Qualified Code(s): E11.621 - Type 2 diabetes mellitus with foot ulcer; L97.509 - Non-pressure chronic ulcer of other part of unspecified foot with unspecified severity (2) Uncontrolled diabetes mellitus Code(s): E11.65 - TYPE 2 DIABETES MELLITUS WITH HYPERGLYCEMIA Qualifiers: Diabetes mellitus type: type 2 Glycemic state: with hyperglycemia Qualified Code(s): E11.65 - Type 2 diabetes mellitus with hyperglycemia (3) Hyperlipidemia Code(s): E78.5 - HYPERLIPIDEMIA, UNSPECIFIED Qualifiers: Hyperlipidemia type: pure hypercholesterolemia Qualified Code(s): E78.00 - Pure hypercholesterolemia, unspecified; E78.0 - Pure hypercholesterolemia (4) Hypertension Code(s): I10 - ESSENTIAL (PRIMARY) HYPERTENSION Qualifiers: Hypertension type: essential hypertension Qualified Code(s): I10 - Essential (primary) hypertension Assessment/Plan ECHO 2017: normal LVEF (given EKG changes, will repeat for LVEF, wall motion, va lve status) initial EKG: NSR; T wave changes: consider inferolateral ischemia; today's EKG shows nonspecific T wave changes; no longer T wave inversions inferiorly 1. POD#1 Aortogram, LLE angiogram, anterior tibial artery angioplasty for 2. Gangrene of toes with PAD and diabetic ulcer and osteomyelitis 3. HTN 4. DM 5. History of TIA 6. Hyperlipidemia PLAN: 1. Complete empiric oral antibiotic course 2. Continue Atorvastatin 40 mg QHS, ASA 81 qd, Plavix 75 qd, lisinopril 20 qd 3. DVT prophylaxis, local woundcare and HBO2 per podiatry input
--- NOTE | 2020-03-19 11:07 | PN ---
Progress Note (short form) - Note Progress Note: Podiatry F/U: Seen/evaluated at bedside NAD. Pain is controlled, denies F/V/N/C/SOB/CP. Afebrile. S/p LLE anterior tibial angioplasty POD#1. LIZET: Pedal pulses nonpalpable, TG wnl, CFT about 4 seconds to all digits. There are small superficial digital ulcers to digits 2-4 with superficial eschar, some duskiness to the digits. There is no probing to bone, no purulent drainage, no fluctuance, no streaking ascending cellulitis, no signs of active infection. No tenderness to palpation. Imp: 64 year old diabetic PVD female with bilateral diabetic digital ulcers, s/p LLE anterior tibial angioplasty POD#1 1. Abx per infectious disease 2. Continue local care with mupirocin and dry sterile dressing to both feet. I discussed case with patient's daughter, she will help in performing dressing changes to the feet. 3. Tight glycemic management. 4. Discussed hyperbaric oxygen therapy as an adjunctive modality to hyperoxygenate digital tissues to expedite healing. 5. She will need follow up next Tuesday in wound healing center, or with Dr. Nava. No podiatric surgical intervention required. Kyler Singh DPM
[2020-03-19] MEDS: Insulin (LOG) Aspart 100 UNITS/ML VIAL SQ SCH ×3 (11:10→16:30)
[2020-03-19] MEDS: INSULIN SLIDING SCALE (NOVOLOG) 1 VIAL SQ SCH ×3 (11:15→16:31)
[2020-03-19] MEDS ORDERED: INSULIN (NOVOLOG) ASPART 100 UNITS/ML 10ML VIAL ONE ×2 (11:54→16:16)
--- NOTE | 2020-03-19 11:57 | PN ---
Progress Note, Physician History of Present Illness: stable no new issues - Current Medication List Current Medications: Active Medications Aspirin (Ecotrin -) 81 mg PO DAILY [facility] Last Admin: 03/19/20 10:48 Dose: 81 mg Documented by: Atorvastatin Calcium (Lipitor -) 40 mg PO HS [facility] Last Admin: 03/18/20 21:41 Dose: 40 mg Documented by: Clopidogrel Bisulfate (Plavix -) 75 mg PO DAILY [facility] Last Admin: 03/19/20 10:48 Dose: 75 mg Documented by: Enoxaparin Sodium (Lovenox -) 40 mg SQ DAILY [facility] Last Admin: 03/19/20 11:33 Dose: 40 mg Documented by: Fentanyl (Sublimaze Injection -) 25 mcg IVPUSH [id number] PRN PRN Reason: PAIN-PACU ORDER X 4 DOSES ONLY Piperacillin Sod/Tazobactam (Sod 3.375 gm/ Dextrose) 50 mls @ 100 mls/hr IVPB Q8H-IV [facility]; Protocol Last Admin: 03/19/20 10:50 Dose: 100 mls/hr Documented by: Insulin Aspart (Novolog) 3 units SQ TIDAC [facility] Last Admin: 03/19/20 11:31 Dose: 3 units Documented by: Insulin Aspart (Novolog Vial Sliding Scale -) 1 vial SQ [facility]; Protocol Last Admin: 03/19/20 11:31 Dose: 2 units Documented by: Insulin Detemir (Levemir Vial) 8 units SQ [facility] Last Admin: 03/18/20 22:56 Dose: Not Given Documented by: Lactobacillus Acidophilus (Bacid -) 1 tab PO BID [facility] Last Admin: 03/19/20 10:47 Dose: 1 tab Documented by: Lisinopril (Prinivil) 20 mg PO DAILY [facility] Last Admin: 03/19/20 10:48 Dose: 20 mg Documented by: Mupirocin (Bactroban 2% Ointment -) 1 applic TP DAILY [facility] Last Admin: 03/19/20 10:49 Dose: 1 applic Documented by: Ondansetron HCl (Zofran Injection) 4 mg IVPUSH Q6H PRN PRN Reason: NAUSEA AND/OR VOMITING - Objective Vital Signs: Vital Signs Temperature 98.4 F 03/19/20 05:50 Pulse Rate 93 H 03/19/20 06:11 Respiratory Rate 18 03/19/20 05:50 Blood Pressure 150/84 03/19/20 06:11 O2 Sat by Pulse Oximetry (%) 97 03/18/20 21:00 Constitutional: Yes: No Distress, Calm Cardiovascular: Yes: S1, S2 Respiratory: Yes: Regular, CTA Bilaterally Gastrointestinal: Yes: Normal Bowel Sounds, Soft Musculoskeletal: Yes: WNL Extremities: Yes: Other Wound/Incision: Yes: Dressing Dry and Intact Psychiatric: Yes: Other Labs: CBC, BMP 03/19/20 07:00 03/19/20 07:00 INR, PTT INR 0.92 (0.83-1.09) 03/10/20 18:12 Assessment/Plan 64F w/ pmh of HTN, HLD, TIA, Left foot OM(Aug 2016), Right foot OM(February 2019 sp ceftriaxone x6wk, HBO), uncontrolled IDDM presented to [facility] with complaint of discoloration of b/l foot wounds. Had wounds x1week with gradual darkening of dorsal surface. No drainage, or foul smell. Admitted for Diabetic Foot Ulcers. #BLE toe diabetic ulcers w/ possible surrounding cellulitis #IDDM uti h/o of tia plan can change to oral abx rest as per the team augmentin
[2020-03-19] MEDS ORDERED: AMOX TR/POT CLAV 875MG/125MG TABLETS (FP) PO SCH (17:30)
[2020-03-19 17:44] VITALS: TEMP 98.9
--- NOTE | 2020-03-19 17:56 | PN ---
Teaching Attending Note Name of Resident: Ben Mclaughlin ATTENDING PHYSICIAN STATEMENT I saw and evaluated the patient. I reviewed the resident's note and discussed the case with the resident. I agree with the resident's findings and plan as documented. SUBJECTIVE: Feeling well. Denies foot/toe pain. No fever/chills. OBJECTIVE: Afebrile, Hemodynamically Stable. Last Vital Signs Temp Pulse Resp BP Pulse Ox 98.9 F 95 H 20 113/65 97 03/19/20 17:44 03/19/20 17:44 03/19/20 17:44 03/19/20 17:44 03/19/20 09:00 Heart - S1, S2, RRR Lungs - clear to auscultation Abdomen - Soft, non-tender. Bowel Sounds normal. Extremities - no calf tenderness, bilateral toe ulceration/discoloration (R 2nd/3rd/4th toes; L 3rd toe) Neuro - AAO x 3. Tone/Power normal. Laboratory Results - last 24 hr 03/18/20 03/19/20 03/19/20 21:40 05:42 07:00 WBC 7.6 RBC 2.86 L Hgb 9.1 L Hct 27.2 L MCV 95.1 MCH 31.9 MCHC 33.5 RDW 13.4 Plt Count 211 MPV 10.0 Absolute Neuts (auto) 4.8 Neutrophils % 63.2 Lymphocytes % 25.0 D Monocytes % 8.2 Eosinophils % 2.9 Basophils % 0.7 Nucleated RBC % 0 Sodium Potassium Chloride Carbon Dioxide Anion Gap BUN Creatinine Est GFR (CKD-EPI)AfAm Est GFR (CKD-EPI)NonAf POC Glucometer 89 125 Random Glucose Calcium Phosphorus Magnesium 03/19/20 03/19/20 03/19/20 07:00 07:04 11:28 WBC RBC Hgb Hct MCV MCH MCHC RDW Plt Count MPV Absolute Neuts (auto) Neutrophils % Lymphocytes % Monocytes % Eosinophils % Basophils % Nucleated RBC % Sodium 139 Potassium 3.8 Chloride 106 Carbon Dioxide 29 Anion Gap 5 L BUN 16.4 Creatinine 1.0 Est GFR (CKD-EPI)AfAm 68.47 Est GFR (CKD-EPI)NonAf 59.07 POC Glucometer 118 194 Random Glucose 136 H Calcium 9.1 Phosphorus 4.3 Magnesium 2.4 03/19/20 16:34 WBC RBC Hgb Hct MCV MCH MCHC RDW Plt Count MPV Absolute Neuts (auto) Neutrophils % Lymphocytes % Monocytes % Eosinophils % Basophils % Nucleated RBC % Sodium Potassium Chloride Carbon Dioxide Anion Gap BUN Creatinine Est GFR (CKD-EPI)AfAm Est GFR (CKD-EPI)NonAf POC Glucometer 173 Random Glucose Calcium Phosphorus Magnesium Current Medications Generic Name Dose Route Start Last Admin Trade Name Freq PRN Reason Stop Dose Admin Amoxicillin/Clavulanate Potassium 1 tab 03/19/20 17:30 03/19/20 16:30 Augmentin - 875mg Tablet PO 1 tab BID@0800,1730 [facility] Administration Aspirin 81 mg 03/19/20 10:00 03/19/20 10:48 Ecotrin - PO 81 mg DAILY [facility] Administration Atorvastatin Calcium 40 mg 03/18/20 22:00 03/18/20 21:41 Lipitor - PO 40 mg HS [facility] Administration Clopidogrel Bisulfate 75 mg 03/18/20 18:30 03/19/20 10:48 Plavix - PO 75 mg DAILY [facility] Administration Enoxaparin Sodium 40 mg 03/19/20 10:00 03/19/20 11:33 Lovenox - SQ 40 mg DAILY [facility] Administration Fentanyl 25 mcg 03/18/20 18:59 Sublimaze Injection - IVPUSH [id number] PRN PAIN-PACU ORDER X 4 DOSES ONLY Insulin Aspart 3 units 03/19/20 07:00 03/19/20 16:30 Novolog SQ 3 units TIDAC [facility] Administration Insulin Aspart 1 vial 03/18/20 22:00 03/19/20 16:31 Novolog Vial Sliding Scale - SQ 2 units ACHS [facility] Administration Protocol Insulin Detemir 8 units 03/18/20 22:00 03/18/20 22:56 Levemir Vial SQ Not Given HS [facility] Lactobacillus Acidophilus 1 tab 03/18/20 22:00 03/19/20 10:47 Bacid - PO 1 tab BID [facility] Administration Lisinopril 20 mg 03/19/20 10:00 03/19/20 10:48 Prinivil PO 20 mg DAILY [facility] Administration Mupirocin 1 applic 03/19/20 10:00 03/19/20 10:49 Bactroban 2% Ointment - TP 1 applic DAILY [facility] Administration Ondansetron HCl 4 mg 03/18/20 18:59 Zofran Injection IVPUSH Q6H PRN NAUSEA AND/OR VOMITING Discharge Medications Medication Instructions Recorded Aspirin [ASA -] 81 mg PO DAILY 08/01/17 Atorvastatin Ca [Lipitor] 40 mg PO HS #30 tablet 08/02/17 Pantoprazole Sodium [Protonix] 40 mg PO DAILY #30 tablet. 06/22/19 metFORMIN XR [Glucophage Xr -] 500 mg PO DAILY@0700 #30 tab.sr.24h 06/22/19 Lisinopril 20 mg PO DAILY 03/11/20 Insulin Glargine,Hum.rec.anlog 8 unit SQ HS #1 vial 03/18/20 [Lantus] Mupirocin Ointment [Bactroban 2% 1 applic TP DAILY #1 tube 03/18/20 Ointment -] Amoxicillin/Potassium Clav 1 each PO BID #14 tablet 03/19/20 [Augmentin 875-125 Tablet] Clopidogrel Bisulfate [Plavix -] 75 mg PO DAILY #30 tablet 03/19/20 Lactobacillus Acidophilus [Bacid -] 1 tab PO TID #42 tab 03/19/20 ASSESSMENT AND PLAN: 64-year-old female history of poorly controlled DM 2, history of recurrent osteomyelitis, hypertension, hyperlipidemia, Hx TIA, presents with bilateral diabetic foot ulcers/?gangrenous toes. 1. Bilateral gangrenous toes/ulcers CTA shows significant PVD including multiple occluded vessels and an atheroma in the aorta. POD 1 s/p LLE Angiogram with tibial artery angioplasty. Plavix, local Mupirocin as per Vascular. Zosyn transitioned to Augmentin as per ID 2. DM 2 - Uncontrolled, A1C 11.8 Glargine/Metformin resumed - for PCP follow up for up-titration of DM 2 medication. 3. Hx of TIA - Continue Aspirin, Statin. 4. HTN - Continue Lisinopril. 5. HLD - Continue Lipitor. Medically optimized for discharge with Wound Care/Vascular and Podiatry follow ups. For consideration of out-patient Hyperbaric O2.
--- NOTE | 2020-03-19 18:01 | DS ---
Physical Exam: SUBJECTIVE: 64 year old female patient with past medical history that includes Type 2 Diabetes (with an A1C of 11.8 on 03/11), history of recurrent osteomyelitis, HTN, HLD, and History of TIA who presented with bilateral foot ulcers/diabetic toes for 1 week. Patient seen and examined at bedside. No acute events overnight. The right 2nd, 3rd, and 4th toes as well as the left 3rd toe have ulceration/discoloration, but patient reports no sensory loss in her feet or toes bilaterally and is able to move her toes. Patient denies pain in her feet or toes. Pedal pulses were palpable but are weak bilaterally. OBJECTIVE: Vital Signs Period Temp Pulse Resp BP Sys/[place] Pulse Ox Last 24 Hr 97 F-98.9 F 78-95 14-20 99-150/58-84 95-97 PHYSICAL EXAM GENERAL: The patient is awake, alert, and fully oriented, in no acute distress. HEAD: Normal with no signs of trauma. EYES: Extraocular movements intact, sclera anicteric, conjunctiva clear. ENT: Ears normal, nares patent, oropharynx clear without exudates, moist mucous membranes. NECK: Trachea midline, full range of motion, supple. LUNGS: Breath sounds equal, clear to auscultation bilaterally, no wheezes, no crackles, no accessory muscle use. HEART: Regular rate and rhythm, S1, S2 without murmur, rub or gallop. ABDOMEN: Soft, nontender, nondistended, normoactive bowel sounds, no guarding, no rebound, no hepatosplenomegaly, no masses. EXTREMITIES: Bilateral toe ulceration/discoloration. (Right 2nd, 3rd, and 4th t oes and Left 3rd toe). Denies sensory loss in feet or toes bilaterally. Able to move feet and toes. Denies pain in feet or toes. Pedal pulses palpable but weak bilaterally. NEUROLOGICAL: Normal speech, gait not observed. PSYCH: Normal mood, normal affect. LABS Laboratory Results - last 24 hr 03/18/20 03/19/20 03/19/20 21:40 05:42 07:00 WBC 7.6 RBC 2.86 L Hgb 9.1 L Hct 27.2 L MCV 95.1 MCH 31.9 MCHC 33.5 RDW 13.4 Plt Count 211 MPV 10.0 Absolute Neuts (auto) 4.8 Neutrophils % 63.2 Lymphocytes % 25.0 D Monocytes % 8.2 Eosinophils % 2.9 Basophils % 0.7 Nucleated RBC % 0 Sodium Potassium Chloride Carbon Dioxide Anion Gap BUN Creatinine Est GFR (CKD-EPI)AfAm Est GFR (CKD-EPI)NonAf POC Glucometer 89 125 Random Glucose Calcium Phosphorus Magnesium 03/19/20 03/19/20 03/19/20 07:00 07:04 11:28 WBC RBC Hgb Hct MCV MCH MCHC RDW Plt Count MPV Absolute Neuts (auto) Neutrophils % Lymphocytes % Monocytes % Eosinophils % Basophils % Nucleated RBC % Sodium 139 Potassium 3.8 Chloride 106 Carbon Dioxide 29 Anion Gap 5 L BUN 16.4 Creatinine 1.0 Est GFR (CKD-EPI)AfAm 68.47 Est GFR (CKD-EPI)NonAf 59.07 POC Glucometer 118 194 Random Glucose 136 H Calcium 9.1 Phosphorus 4.3 Magnesium 2.4 03/19/20 16:34 WBC RBC Hgb Hct MCV MCH MCHC RDW Plt Count MPV Absolute Neuts (auto) Neutrophils % Lymphocytes % Monocytes % Eosinophils % Basophils % Nucleated RBC % Sodium Potassium Chloride Carbon Dioxide Anion Gap BUN Creatinine Est GFR (CKD-EPI)AfAm Est GFR (CKD-EPI)NonAf POC Glucometer 173 Random Glucose Calcium Phosphorus Magnesium HOSPITAL COURSE: Date of Admission:03/10/20 64 year old female patient with past medical history that includes Type 2 Diabetes (with an A1C of 11.8 on 03/11), history of recurrent osteomyelitis, HTN, HLD, and History of TIA who presented with bilateral foot ulcers/diabetic toes for 1 week. Podiatry, Infectious Disease, Vascular Surgery, Cardiology, and Endocrinology were consulted. Patient had on 03/18 an Aortogram, LLE Angiogram, and an Anterior Tibial Artery Angioplasty. Outpatient follow up with PCP for up-titration of Diabetes Type 2 medications recommended. Outpatient follow up with Podiatry recommended. Outpatient follow up with Wound Care/Vascular Surgery on Tuesday recommended. Per automatic spinning lathe operator's recommendation, patient should continue local care with mupirocin and dry sterile dressings to both feet, have tight glycemic control (current A1C of 11.8 on 03/11), and follow up with wound healing center on Tuesday or with Dr. Nava. In addition, Hyperbaric Oxygen Therapy as an Adjunctive Modality to hyperoxygenate digital tissues may help to expedite healing. Recommended to the patient: Augmentin 875mg twice a day by mouth, Plavix 75mg once a day by mouth, Bacid one tablet three times a day by mouth while taking the oral antibiotic, and Mupirocin ointment to the wounds daily with dry dressings as recommended by the automatic spinning lathe operator. Date of Discharge: 03/19/20 Minutes to complete discharge: 58 Discharge Summary Problems reviewed: Yes Reason For Visit: DIABETES MELLITUS,ULCER OF FOOT,GANGRENE Current Active Problems Diabetic toe ulcer (Acute) Gangrene (Acute) Uncontrolled diabetes mellitus (Acute) Condition: Improved - Instructions Diet, Activity, Other Instructions: Your visit You were admitted to the hospital because you had wound on your toes. CAT scan of your legs was done which revealed that you had Peripheral Artery Disease. This affects the blood vessels (called arteries) that bring blood to the legs. Normally blood flows easily through arteries to all parts of the body. But sometimes, fatty clumps called "plaques" build up inside the [place] of arteries and causes these vessels to become narrow or blocked, decreasing blood flow to your feet. You were seen by a vascular surgeon and you underwent a procedure to restore blood flow to your feet. While here, it was also noted that you had high blood sugars. Your Insulin dose was increased. Medications We have made the following changes to your medications: Please start taking: Augmentin 875mg twice a day by mouth, Plavix 75mg once a day by mouth. Please start taking Bacid one tablet three times a day by mouth while you are taking your oral antibiotic. Please continue taking the rest of your home medications as prescribed. Please apply Mupirocin ointment to your wounds daily with dry dressings as recommended by your automatic spinning lathe operator. Follow up Please follow up with your primary care doctor in 1-2 weeks. Please follow up with vascular surgery (Dr Nava) in 1-2 weeks. Please follow up with your automatic spinning lathe operator (Dr. Singh) in 1-2 weeks at the wound care clinic at [facility]. Please call to schedule an appointment. You may need hyperbaric oxygen therapy to expedite healing. You can discuss this option with your automatic spinning lathe operator. Additional info Please call [phone] or go to the ED if with any worsening fevers, chills, headache, dizziness, chest pain, shortness of breath, belly pain, diarrhea, or any new concerns noted. Referrals: Negro Singh MD [Staff Physician] - Belinda Mancera MD [Primary Care Provider] - Sam Nava DO [Staff Physician] - 03/25/20 9:00 am Disposition: HOME - Home Medications Comprehensive Discharge Medication List: Ambulatory Orders Aspirin [ASA -] 81 mg PO DAILY 08/01/17 Atorvastatin Ca [Lipitor] 40 mg PO HS #30 tablet 08/02/17 Pantoprazole Sodium [Protonix] 40 mg PO DAILY #30 tablet.dr 06/22/19 metFORMIN XR [Glucophage Xr -] 500 mg PO DAILY@0700 #30 tab.sr.24h 06/22/19 Lisinopril 20 mg PO DAILY 03/11/20 Insulin Glargine,Hum.rec.anlog [Lantus] 8 unit SQ HS #1 vial 03/18/20 Mupirocin Ointment [Bactroban 2% Ointment -] 1 applic TP DAILY #1 tube 03/18/20 Amoxicillin/Potassium Clav [Augmentin 875-125 Tablet] 1 each PO BID #14 tablet 03/19/20 Clopidogrel Bisulfate [Plavix -] 75 mg PO DAILY #30 tablet 03/19/20 Lactobacillus Acidophilus [Bacid -] 1 tab PO TID #42 tab 03/19/20 This patient is new to me today: Yes Date on this admission: 03/19/20 Emergency Visit: Yes ED Registration Date: 03/10/20 Care time: The patient presented to the Emergency Department on the above date and was hospitalized for further evaluation of their emergent condition. Critical Care patient: No - Discharge Referral Referred to [facility] Med [facility].C.: No ATTENDING PHYSICIAN STATEMENT I saw and evaluated the patient. I reviewed the resident's note and discussed the case with the resident. I agree with the resident's findings and plan as documented. SUBJECTIVE: OBJECTIVE: ASSESSMENT AND PLAN:
--- NOTE | 2020-03-19 18:27 | OP ---
DATE OF OPERATION: 03/18/2020 PREOPERATIVE DIAGNOSIS: Left foot ulcers on the toes. POSTOPERATIVE DIAGNOSIS: Left foot ulcers on the toes. PROCEDURE: Aortogram and lower extremity angiogram, anterior tibial artery angioplasty. SURGEON: Sam Landis MD. ANESTHESIA: Fractional. BLOOD LOSS: 50 mL. 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 INDICATION: The patient is a 64-year-old female that comes in to the hospital with bilateral discoloration of her toes with ulcers. The left was greater than the right. She had a CTA performed showing infrapopliteal disease on the right and the left, but the left greater than the right. She got medical and cardiology clearance. Patient was consented for angiogram. Patient was brought into the operating room and consented for the procedure understanding all risks, benefits, and alternatives and taken to the operating room. DESCRIPTION OF PROCEDURE: Once in the operating room, she was laid on the operating table in a supine manner, and the area of the right and left groin are prepped and draped in a sterile surgical manner. We then injected 10 mL of lidocaine 1% over the right common femoral artery. We then took our Micropuncture needle and punctured the right common femoral artery. A Micropuncture wire was inserted, and a micropuncture sheath was inserted, traditional 5-Persian was inserted. A 0.035 floppy guidewire was inserted into the aorta followed by an Omniflush catheter. We then shot an aortogram by hand injection showing that the aorta and the iliac arteries were without any disease. We then used our 0.035 floppy guidewire and went up and over to the left common femoral artery and Omniflush catheter followed. We then shot an angiogram of the left lower extremity showing that the common femoral artery, the profunda, and the SFA, and popliteal artery were all patent. Patient has 1-vessel runoff into the foot which is the AT, but the AT in its proximal portion has an 80% to 90% stenosis for about 5 cm. At this point, we placed our 0.035 stiff guidewire down to the SFA, removed the Omniflush catheter, a 6 x 45 crossover sheath was placed, 5000 units of IV heparin was administered to the patient. We then brought our stiff wire down along with the Quick-Cross catheter, and we were able to navigate the wire into the anterior tibial artery, and the wire was exchanged for a wire. We then used a 2.5 x 80 Ultraverse balloon and performed angioplasty to the anterior tibial artery anterior tibial artery was patent. There was good brisk flow going into the foot. Patient does have small-vessel disease in the foot. Patient does have a palpable pulse now. At this point, no intervention was needed. We brought our sheath up and over. StarClose device was deployed in the right common femoral artery. Pressure was applied for 5 minutes, after this no more bleeding. Areas were then dried and Dermabond was placed. Patient tolerated the procedure without complications. Patient was transferred to PACU in stable condition. SAM LANDIS DO [id number]
[2020-03-19 20:40] VITALS: BP 112/59; PULSE 91
== END 2020-03-19 20:41 | disposition home or self-care (01) | DRG 253 ==
LOC: JER 16:28 → JERBED 19:56 → J6S 22:50 → J8W 03-16 13:58
PROVIDERS: ADMIT Internal Medicine
PROC: B40DYZZ Plain Radiography of Aorta and Bilateral Lower Extremity Arteries using Other Contrast (ICD-10-PCS; 2020-03-18)
PROC: 3E033GC Introduction of Other Therapeutic Substance into Peripheral Vein, Percutaneous Approach (ICD-10-PCS; 2020-03-18)
PROC: 047Q3ZZ Dilation of Left Anterior Tibial Artery, Percutaneous Approach (ICD-10-PCS; principal; 2020-03-18 13:00)
DX: E11.52 Type 2 diabetes mellitus with diabetic peripheral angiopathy with gangrene (principal); I96 Gangrene, not elsewhere classified; L97.528 Non-pressure chronic ulcer of other part of left foot with other specified severity; L03.116 Cellulitis of left lower limb; L03.115 Cellulitis of right lower limb; N39.0 Urinary tract infection, site not specified; L97.518 Non-pressure chronic ulcer of other part of right foot with other specified severity; E11.621 Type 2 diabetes mellitus with foot ulcer; E11.65 Type 2 diabetes mellitus with hyperglycemia; I10 Essential (primary) hypertension; E78.5 Hyperlipidemia, unspecified; I70.0 Atherosclerosis of aorta; E87.5 Hyperkalemia; I25.10 Atherosclerotic heart disease of native coronary artery without angina pectoris; F32.9 Major depressive disorder, single episode, unspecified; H54.40 Blindness, one eye, unspecified eye; D64.9 Anemia, unspecified; Z91.19 Patient's noncompliance with other medical treatment and regimen; Z86.73 Personal history of transient ischemic attack (TIA), and cerebral infarction without residual deficits; Z79.4 Long term (current) use of insulin
CPT/HCPCS: 36415; 71046-TC-FY; 73630-TC-LT; 73630-TC-RT-FY; 75635-TC; 80048; 80053; 80061; 81003; 82010; 82962; 83036; 83721; 83735; 84100; 84443; 84484; 85025; 85027; 85610; 85651; 85730; 86140; 87086; 93005; 93010; 93306-TC; 93923; 94760; 99285-25; J1644; Q9967; U0003

== ENCOUNTER 2020-09-13 16:21 | Emergency (ER) | payer OTHER ==
[2020-09-13 17:45] VITALS: BP 117/65; PULSE 106; TEMP 98.5; BMI 20.5
== END 2020-09-13 18:20 | disposition home or self-care (01) ==
LOC: JERFT 16:21
DX: H57.89 Other specified disorders of eye and adnexa (principal)
CPT/HCPCS: 99283-25

== ENCOUNTER 2021-05-06 13:05 | Emergency (ER) | payer MEDICARE, OTHER ==
[2021-05-06 13:38] VITALS: BMI 17.8
[2021-05-06] MEDS ORDERED: SODIUM CHLORIDE 0.9% 500 ML INFUS.BAG IV ONE ×2 (14:17→17:14)
[2021-05-06 16:55] LABS: EPI CELLS >36 /uL (0-25.1); HYALINE CASTS 5 /uL (0-3.1); PH,URINE 5.5 (5.0-8.0); URINE APPEARANCE TURBID; URINE BACTERIA >9,000 /uL (0-1359); URINE BILIRUBIN NEGATIVE (NEGATIVE); URINE COLOR YELLOW; URINE GLUCOSE (UA) 3+ (NEGATIVE); URINE KETONE 1+ (NEGATIVE); URINE LEUK ESTERASE 2+ (NEGATIVE); URINE NITRITE NEGATIVE (NEGATIVE); URINE PROTEIN 1+ (NEGATIVE); URINE UROBILINOGEN 0.2 mg/dL (0.2-1.0); URINE WBC 6818 /uL (0-25.8)
[2021-05-06 17:19] VITALS: PULSE 91
[2021-05-06] MEDS ORDERED: NITROFURANTOIN MACROCRYSTAL 50 MG CAPSULE (FP) PO SCH (17:30)
[2021-05-06 18:41] LABS: BASO % 0.9 % (0-2.0); EOS % 0.3 % (0-4.5); HEMATOCRIT 33.3 % (32.4-45.2); HEMOGLOBIN 11.3 GM/dL (10.7-15.3); LYMPH % 26.8 % (8-40); MCH 31.5 pg (25.7-33.7); MEAN CELL VOLUME 92.7 fl (80-96); MONO % 4.4 % (3.8-10.2); NEUT % 67.6 % (42.8-82.8); PLATELET COUNT 231 10^3/uL (134-434); RBC 3.59 M/mm3 (3.60-5.2); RDW 13.1 % (11.6-15.6); WHITE BLOOD COUNT 9.1 K/mm3 (4.0-10.0)
[2021-05-06 18:53] LABS: VENOUS BASE EXCESS -1.6 mmol/L (-2-2); VENOUS O2 SATURATION 59.1 % (70-80); VENOUS PCO2 46.8 mmHg (38-52); VENOUS PH 7.336 (7.310-7.410)
[2021-05-06] MEDS ORDERED: CEFTRIAXONE 1,000 MG in DEXTROSE 5%-WATER - 50 ML IVPB ONE (18:59)
[2021-05-06] MEDS ORDERED: CEFTRIAXONE 1 GM/50 ML BAG ONE (19:02)
[2021-05-06 19:04] LABS: BLOOD UREA NITROGEN 25.6 mg/dL (7-18); CALCIUM 8.8 mg/dL (8.5-10.1)
[2021-05-06 19:07] LABS: CREATININE 1.1 mg/dL (0.55-1.3)
[2021-05-06 19:09] LABS: BILIRUBIN,TOTAL 0.7 mg/dL (0.2-1); TOT PROT 8.2 g/dl (6.4-8.2)
[2021-05-06 19:41] LABS: URINE RBC 398.5 /uL (0-23.9); YEAST NONE SEEN (NEGATIVE)
[2021-05-06 20:17] VITALS: BP 152/78; TEMP 97.6
== END 2021-05-06 20:15 | disposition home or self-care (01) ==
LOC: JER 13:05
DX: R73.9 Hyperglycemia, unspecified (principal); R42 Dizziness and giddiness
CPT/HCPCS: 36415; 80053; 81003; 82010; 82550; 82803; 82962; 84484; 85025; 87086; 87186; 93005; 93010; 96374; 99284-25

== ENCOUNTER 2022-01-20 21:34 | Emergency (ER) | payer MEDICARE, OTHER ==
[2022-01-20 21:44] VITALS: BP 147/54; PULSE 92; TEMP 98.5; BMI 20.2
[2022-01-20] MEDS ORDERED: SULFAMETHOXAZOLE/TRIMETHOPRIM 800MG/160MG D.S. TABLET PO ONE (21:49)
[2022-01-20] MEDS ORDERED: SULFAMETHOXAZOLE/TRIMETHOPRIM 800MG/160MG D.S. TABLET ONE (21:51)
== END 2022-01-20 22:00 | disposition home or self-care (01) ==
LOC: FER 21:34
DX: S90.812A Abrasion, left foot, initial encounter (principal); Y99.9 Unspecified external cause status
CPT/HCPCS: 99283-25

== ENCOUNTER 2022-02-07 20:41 | Inpatient (IN) | payer MEDICARE, OTHER ==
[2022-02-07 20:50] VITALS: BMI 20.5
[2022-02-07] MEDS ORDERED: SODIUM CHLORIDE 0.9% 500 ML INFUS.BAG IV ONE (21:46)
[2022-02-07 22:15] LABS: BASO % 0.8 % (0-2.0); EOS % 1.4 % (0-4.5); HEMATOCRIT 31.2 % (32.4-45.2); HEMOGLOBIN 10.4 GM/dL (10.7-15.3); LYMPH % 35.5 % (8-40); MCH 30.6 pg (25.7-33.7); MCHC 33.4 g/dl (32.0-36.0); MEAN CELL VOLUME 91.6 fl (80-96); MEAN PLT VOLUME 9.4 fl (7.5-11.1); MONO % 5.6 % (3.8-10.2); NEUT % 56.7 % (42.8-82.8); PLATELET COUNT 288 10^3/uL (134-434); RDW 13.6 % (11.6-15.6); WHITE BLOOD COUNT 8.7 K/mm3 (4.0-10.0)
[2022-02-07 22:24] LABS: INR 1.05 (0.83-1.09); PROTHROMBIN TIME (PATIENT) 12.1 SEC (9.7-13.0)
[2022-02-07 22:27] LABS: ACTIVATED PTT 32.3 SECONDS (25.2-36.5)
[2022-02-07 22:36] LABS: CALCIUM 9.6 mg/dL (8.5-10.1)
[2022-02-07 22:37] LABS: ALBUMIN 3.8 g/dl (3.4-5.0); BLOOD UREA NITROGEN 19.1 mg/dL (7-18)
[2022-02-07 22:40] LABS: CREATININE 0.9 mg/dL (0.55-1.3)
[2022-02-07 22:42] LABS: BILIRUBIN,TOTAL 0.7 mg/dL (0.2-1)
[2022-02-07] MEDS ORDERED: PIPERACILLIN/TAZOB 4.5 GM 4.5 GM in DEXTROSE 5%-WATER 100 ML IVPB ONE (23:17)
[2022-02-07] MEDS ORDERED: VANCOMYCIN 1 GM PREMIX - 1 GM/200 ML BAG IVPB ONE (23:17)
[2022-02-07] MEDS ORDERED: PIPERACILLIN/TAZOB 4.5 GM 4.5 GM/100 ML BAG IVPB ONE (23:40)
[2022-02-07] MEDS ORDERED: VANCOMYCIN 1 GRAM (PRE-DOCKED) 1,000 MG/250 ML BAG IVPB ONE (23:40)
[2022-02-08] MEDS ORDERED: SODIUM CHLORIDE 1,000 ML IV SCH (01:00)
[2022-02-08] MEDS ORDERED: PIPERACILLIN/TAZOB 3.375 GM 3.375 GM in DEXTROSE 5%-WATER - 50 ML IVPB SCH (02:00)
[2022-02-08 02:09] LABS: PH,URINE 7.5 (5.0-8.0); URINE APPEARANCE CLEAR; URINE BILIRUBIN NEGATIVE (NEGATIVE); URINE COLOR YELLOW; URINE GLUCOSE (UA) NEGATIVE (NEGATIVE); URINE KETONE NEGATIVE (NEGATIVE); URINE LEUK ESTERASE NEGATIVE (NEGATIVE); URINE NITRITE NEGATIVE (NEGATIVE); URINE PROTEIN NEGATIVE (NEGATIVE); URINE UROBILINOGEN 0.2 mg/dL (0.2-1.0)
[2022-02-08] MEDS ORDERED: PIPERACILLIN/TAZOB 3.375 GM 3.375 GM/50 ML BAG IVPB ONE ×3 (04:57→18:03)
[2022-02-08] MEDS: PIPERACILLIN/TAZOB 3.375 GM 3.375 GM in DEXTROSE 5%-WATER - 50 ML IVPB SCH ×3 (05:08→18:07)
[2022-02-08 07:41] LABS: BASO % 0.8 % (0-2.0); EOS % 1.7 % (0-4.5); HEMATOCRIT 29.6 % (32.4-45.2); HEMOGLOBIN 9.8 GM/dL (10.7-15.3); LYMPH % 34.7 % (8-40); MCH 30.4 pg (25.7-33.7); MEAN CELL VOLUME 91.9 fl (80-96); MEAN PLT VOLUME 9.9 fl (7.5-11.1); MONO % 6.2 % (3.8-10.2); NEUT % 56.6 % (42.8-82.8); PLATELET COUNT 283 10^3/uL (134-434); RBC 3.22 M/mm3 (3.60-5.2); RDW 13.3 % (11.6-15.6); WHITE BLOOD COUNT 7.4 K/mm3 (4.0-10.0)
[2022-02-08] MEDS: INSULIN SLIDING SCALE (NOVOLOG) 1 VIAL SQ SCH ×4 (08:00→22:15)
[2022-02-08 08:27] LABS: ALBUMIN 3.6 g/dl (3.4-5.0); BLOOD UREA NITROGEN 16.4 mg/dL (7-18); CALCIUM 9.1 mg/dL (8.5-10.1); MAGNESIUM 2.2 mg/dL (1.8-2.4)
[2022-02-08 08:29] LABS: PHOSPHOROUS 3.5 mg/dL (2.5-4.9)
[2022-02-08 08:31] LABS: BILIRUBIN,TOTAL 0.8 mg/dL (0.2-1); TOT PROT 7.6 g/dl (6.4-8.2)
[2022-02-08] MEDS ORDERED: VANCOMYCIN 1 GM in D5W (PRE-DOCKED) 1,000 MG/250 ML IVPB SCH (10:00)
[2022-02-08] MEDS: ASPIRIN 81 MG CHEWABLE TABLETS PO SCH (11:00)
[2022-02-08] MEDS: ENOXAPARIN NA (PORCINE) 40 MG/0.4 ML DISP.SYRIN SQ SCH (11:00)
[2022-02-08] MEDS: CLOPIDOGREL BISULFATE 75 MG TABLET (FP) PO SCH (11:00)
[2022-02-08] MEDS ORDERED: ASPIRIN 81 MG CHEWABLE TABLETS ONE (11:15)
[2022-02-08] MEDS ORDERED: CLOPIDOGREL BISULFATE 75 MG TABLET (FP) ONE (11:15)
[2022-02-08] MEDS ORDERED: ENOXAPARIN NA (PORCINE) 40 MG/0.4 ML DISP.SYRIN SQ ONE (11:15)
[2022-02-08] MEDS ORDERED: PATIENT'S OWN MEDICATION (NON-FORMULARY) (Insulin Glargine,Hum.Rec.Anlog [Lantus] 100 UNIT SQ SCH (22:00)
[2022-02-08] MEDS: ATORVASTATIN CA 40 MG TABLET (FP) PO SCH (22:06)
[2022-02-08] MEDS: INSULIN (LEVEMIR) 100 UNITS/ML UNITS SQ SCH (22:14)
[2022-02-08] MEDS ORDERED: VANCOMYCIN/WATER FOR INJ (PEG) 1,000 MG/200 ML BAG IVPB SCH (23:00)
[2022-02-09] MEDS ORDERED: ACETAMINOPHEN 325 MG TABLET (FP) PO ONE (05:33)
[2022-02-09] MEDS: INSULIN SLIDING SCALE (NOVOLOG) 1 VIAL SQ SCH ×4 (06:38→21:12)
[2022-02-09 08:52] LABS: BASO % 0.7 % (0-2.0); EOS % 2.1 % (0-4.5); HEMATOCRIT 30.6 % (32.4-45.2); HEMOGLOBIN 10.3 GM/dL (10.7-15.3); LYMPH % 28.1 % (8-40); MCH 30.7 pg (25.7-33.7); MCHC 33.6 g/dl (32.0-36.0); MEAN CELL VOLUME 91.6 fl (80-96); MEAN PLT VOLUME 9.4 fl (7.5-11.1); NEUT % 63.1 % (42.8-82.8); PLATELET COUNT 271 10^3/uL (134-434); RBC 3.35 M/mm3 (3.60-5.2); RDW 13.4 % (11.6-15.6); WHITE BLOOD COUNT 8.2 K/mm3 (4.0-10.0)
[2022-02-09 09:29] LABS: BLOOD UREA NITROGEN 18.5 mg/dL (7-18)
[2022-02-09 09:31] LABS: CREATININE 0.7 mg/dL (0.55-1.3)
[2022-02-09 09:33] LABS: BILIRUBIN,TOTAL 0.6 mg/dL (0.2-1); TOT PROT 7.4 g/dl (6.4-8.2)
[2022-02-09 09:40] LABS: ALBUMIN 3.5 g/dl (3.4-5.0); MAGNESIUM 2.1 mg/dL (1.8-2.4)
[2022-02-09 09:43] LABS: CALCIUM 9.3 mg/dL (8.5-10.1)
[2022-02-09] MEDS: ENOXAPARIN NA (PORCINE) 40 MG/0.4 ML DISP.SYRIN SQ SCH (09:47)
[2022-02-09] MEDS: PANTOPRAZOLE 40 MG TABLET PO SCH (09:48)
[2022-02-09] MEDS: ASPIRIN 81 MG CHEWABLE TABLETS PO SCH (09:48)
[2022-02-09] MEDS: CLOPIDOGREL BISULFATE 75 MG TABLET (FP) PO SCH (09:48)
[2022-02-09] MEDS: LISINOPRIL 20 MG TABLET PO SCH (09:48)
[2022-02-09] MEDS ORDERED: PIPERACILLIN/TAZOB 3.375 GM 3.375 GM in DEXTROSE 5%-WATER - 50 ML IVPB SCH (12:45)
[2022-02-09] MEDS ORDERED: DEXTROSE 5%-WATER - 50 ML IVPB ONE ×2 (13:00→20:15)
[2022-02-09] MEDS ORDERED: PIPERACILLIN/TAZOBACTAM 3.375 GM VIAL IVPB ONE ×2 (13:00→20:15)
[2022-02-09] MEDS ORDERED: INSULIN (NOVOLOG) ASPART 100 UNITS/ML 10ML VIAL ONE (17:39)
[2022-02-09] MEDS: PIPERACILLIN/TAZOB 3.375 GM 3.375 GM in DEXTROSE 5%-WATER - 50 ML IVPB SCH (20:51)
[2022-02-09] MEDS: ATORVASTATIN CA 40 MG TABLET (FP) PO SCH (21:12)
[2022-02-09] MEDS: INSULIN (LEVEMIR) 100 UNITS/ML UNITS SQ SCH (21:12)
[2022-02-10] MEDS ORDERED: DEXTROSE 5%-WATER - 50 ML IVPB ONE ×3 (05:19→21:03)
[2022-02-10] MEDS ORDERED: PIPERACILLIN/TAZOBACTAM 3.375 GM VIAL IVPB ONE ×3 (05:19→21:03)
[2022-02-10] MEDS: PIPERACILLIN/TAZOB 3.375 GM 3.375 GM in DEXTROSE 5%-WATER - 50 ML IVPB SCH ×3 (07:07→21:43)
[2022-02-10] MEDS: INSULIN SLIDING SCALE (NOVOLOG) 1 VIAL SQ SCH ×4 (07:08→21:45)
[2022-02-10 09:11] LABS: BASO % 0.8 % (0-2.0); EOS % 3.3 % (0-4.5); HEMATOCRIT 28.4 % (32.4-45.2); HEMOGLOBIN 9.7 GM/dL (10.7-15.3); MCH 31.1 pg (25.7-33.7); MCHC 34.2 g/dl (32.0-36.0); MEAN CELL VOLUME 90.9 fl (80-96); MEAN PLT VOLUME 9.3 fl (7.5-11.1); MONO % 6.9 % (3.8-10.2); PLATELET COUNT 262 10^3/uL (134-434); RBC 3.13 M/mm3 (3.60-5.2); RDW 13.5 % (11.6-15.6); WHITE BLOOD COUNT 5.9 K/mm3 (4.0-10.0)
[2022-02-10 09:57] LABS: BILIRUBIN,TOTAL 0.6 mg/dL (0.2-1)
[2022-02-10 09:59] LABS: ALBUMIN 3.3 g/dl (3.4-5.0); BLOOD UREA NITROGEN 15.8 mg/dL (7-18); MAGNESIUM 2.2 mg/dL (1.8-2.4)
[2022-02-10 10:01] LABS: CREATININE 0.8 mg/dL (0.55-1.3); PHOSPHOROUS 4.3 mg/dL (2.5-4.9); TOT PROT 6.8 g/dl (6.4-8.2)
[2022-02-10] MEDS: ENOXAPARIN NA (PORCINE) 40 MG/0.4 ML DISP.SYRIN SQ SCH (10:17)
[2022-02-10] MEDS: LISINOPRIL 20 MG TABLET PO SCH (10:18)
[2022-02-10] MEDS: PANTOPRAZOLE 40 MG TABLET PO SCH (10:18)
[2022-02-10] MEDS: CLOPIDOGREL BISULFATE 75 MG TABLET (FP) PO SCH (10:18)
[2022-02-10] MEDS: ASPIRIN 81 MG CHEWABLE TABLETS PO SCH (10:18)
[2022-02-10] MEDS: ATORVASTATIN CA 40 MG TABLET (FP) PO SCH (21:43)
[2022-02-10] MEDS: INSULIN (LEVEMIR) 100 UNITS/ML UNITS SQ SCH (21:43)
[2022-02-11] MEDS ORDERED: PIPERACILLIN/TAZOBACTAM 3.375 GM VIAL IVPB ONE ×3 (05:05→21:04)
[2022-02-11] MEDS ORDERED: DEXTROSE 5%-WATER - 50 ML IVPB ONE ×3 (05:05→21:04)
[2022-02-11] MEDS: PIPERACILLIN/TAZOB 3.375 GM 3.375 GM in DEXTROSE 5%-WATER - 50 ML IVPB SCH ×3 (05:45→21:46)
[2022-02-11] MEDS: INSULIN SLIDING SCALE (NOVOLOG) 1 VIAL SQ SCH ×4 (06:06→21:47)
[2022-02-11 09:37] LABS: HEMATOCRIT 29.8 % (32.4-45.2); HEMOGLOBIN 10.1 GM/dL (10.7-15.3); MCHC 33.9 g/dl (32.0-36.0); MEAN CELL VOLUME 91.4 fl (80-96); MEAN PLT VOLUME 9.4 fl (7.5-11.1); PLATELET COUNT 274 10^3/uL (134-434); RBC 3.26 M/mm3 (3.60-5.2); RDW 13.8 % (11.6-15.6); WHITE BLOOD COUNT 7.2 K/mm3 (4.0-10.0)
[2022-02-11] MEDS: ASPIRIN 81 MG CHEWABLE TABLETS PO SCH (09:46)
[2022-02-11] MEDS: CLOPIDOGREL BISULFATE 75 MG TABLET (FP) PO SCH (09:46)
[2022-02-11] MEDS: PANTOPRAZOLE 40 MG TABLET PO SCH (09:51)
[2022-02-11] MEDS: LISINOPRIL 20 MG TABLET PO SCH (09:51)
[2022-02-11 10:18] LABS: CALCIUM 9.4 mg/dL (8.5-10.1)
[2022-02-11 10:19] LABS: BLOOD UREA NITROGEN 18.6 mg/dL (7-18)
[2022-02-11] MEDS: ATORVASTATIN CA 40 MG TABLET (FP) PO SCH (21:46)
[2022-02-11] MEDS: INSULIN (LEVEMIR) 100 UNITS/ML UNITS SQ SCH (21:46)
[2022-02-12] MEDS ORDERED: PIPERACILLIN/TAZOBACTAM 3.375 GM VIAL IVPB ONE ×2 (05:57→21:13)
[2022-02-12] MEDS ORDERED: DEXTROSE 5%-WATER - 50 ML IVPB ONE ×2 (05:57→21:13)
[2022-02-12] MEDS: INSULIN SLIDING SCALE (NOVOLOG) 1 VIAL SQ SCH ×4 (06:10→22:05)
[2022-02-12] MEDS: PIPERACILLIN/TAZOB 3.375 GM 3.375 GM in DEXTROSE 5%-WATER - 50 ML IVPB SCH ×3 (06:10→22:01)
[2022-02-12 09:39] LABS: BASO % 0.6 % (0-2.0); EOS % 2.3 % (0-4.5); HEMATOCRIT 30.4 % (32.4-45.2); HEMOGLOBIN 9.9 GM/dL (10.7-15.3); LYMPH % 33.4 % (8-40); MCH 30.1 pg (25.7-33.7); MCHC 32.7 g/dl (32.0-36.0); MEAN CELL VOLUME 92.2 fl (80-96); MEAN PLT VOLUME 9.7 fl (7.5-11.1); MONO % 7.2 % (3.8-10.2); NEUT % 56.5 % (42.8-82.8); PLATELET COUNT 283 10^3/uL (134-434); RDW 13.6 % (11.6-15.6); WHITE BLOOD COUNT 7.3 K/mm3 (4.0-10.0)
[2022-02-12 10:06] LABS: ALBUMIN 3.5 g/dl (3.4-5.0); CALCIUM 9.2 mg/dL (8.5-10.1)
[2022-02-12 10:09] LABS: PHOSPHOROUS 3.7 mg/dL (2.5-4.9); TOT PROT 7.4 g/dl (6.4-8.2)
[2022-02-12 10:11] LABS: BILIRUBIN,TOTAL 0.7 mg/dL (0.2-1); BLOOD UREA NITROGEN 20.3 mg/dL (7-18); MAGNESIUM 2.4 mg/dL (1.8-2.4)
[2022-02-12] MEDS ORDERED: HEPARIN NA (PORCINE) 5,000 UNITS/ML 1ML VIAL ONE ×2 (10:47→12:53)
[2022-02-12] MEDS ORDERED: LIDOCAINE HCL 1%, 10 MG/ML (20ML VIAL) ONE (10:47)
[2022-02-12] MEDS: PANTOPRAZOLE 40 MG TABLET PO SCH (11:18)
[2022-02-12] MEDS: LISINOPRIL 20 MG TABLET PO SCH (11:20)
[2022-02-12] MEDS: ASPIRIN 81 MG CHEWABLE TABLETS PO SCH (11:32)
[2022-02-12] MEDS: CLOPIDOGREL BISULFATE 75 MG TABLET (FP) PO SCH (11:32)
[2022-02-12] MEDS ORDERED: ONDANSETRON 4 MG/2 ML VIAL IVPUSH PRN ×2 (12:07→14:17)
[2022-02-12] MEDS ORDERED: LACTATED RINGERS SOLUTION 1,000 ML IV SCH (12:15)
[2022-02-12] MEDS ORDERED: PROPOFOL 20 ML ONE (12:39)
[2022-02-12] MEDS ORDERED: FENTANYL CITRATE/PF 50 MCG/ML VIAL ONE ×2 (12:39→14:45)
[2022-02-12] MEDS ORDERED: MIDAZOLAM HCL 2 MG/2 ML SINGLE DOSE VIAL ONE (12:39)
[2022-02-12] MEDS ORDERED: LIDOCAINE HCL 1%, 10 MG/ML (20ML VIAL) INF ONE ×3 (12:48→12:58)
[2022-02-12] MEDS ORDERED: HEPARIN NA (PORCINE) 5,000 UNITS/ML 1ML VIAL SQ ONE (13:00)
[2022-02-12] MEDS: LACTATED RINGERS SOLUTION 1,000 ML IV SCH (16:00)
[2022-02-12] MEDS ORDERED: ACETAMINOPHEN 500 MG TABLET (FP) PO ONE (20:59)
[2022-02-12] MEDS: INSULIN (LEVEMIR) 100 UNITS/ML UNITS SQ SCH (22:01)
[2022-02-12] MEDS: ATORVASTATIN CA 40 MG TABLET (FP) PO SCH (22:02)
[2022-02-12 22:41] LABS: HEMATOCRIT 25.5 % (32.4-45.2); HEMOGLOBIN 8.7 GM/dL (10.7-15.3); MCH 31.2 pg (25.7-33.7); MCHC 34.1 g/dl (32.0-36.0); MEAN CELL VOLUME 91.5 fl (80-96); MEAN PLT VOLUME 9.3 fl (7.5-11.1); PLATELET COUNT 230 10^3/uL (134-434); RBC 2.79 M/mm3 (3.60-5.2); RDW 13.6 % (11.6-15.6); WHITE BLOOD COUNT 8.9 K/mm3 (4.0-10.0)
[2022-02-13] MEDS ORDERED: DEXTROSE 5%-WATER - 50 ML IVPB ONE ×3 (05:41→21:17)
[2022-02-13] MEDS ORDERED: PIPERACILLIN/TAZOBACTAM 3.375 GM VIAL IVPB ONE ×3 (05:41→21:16)
[2022-02-13] MEDS: LACTATED RINGERS SOLUTION 1,000 ML IV SCH ×2 (05:51→17:10)
[2022-02-13] MEDS: PIPERACILLIN/TAZOB 3.375 GM 3.375 GM in DEXTROSE 5%-WATER - 50 ML IVPB SCH ×3 (05:51→22:00)
[2022-02-13] MEDS: INSULIN SLIDING SCALE (NOVOLOG) 1 VIAL SQ SCH ×4 (06:07→22:04)
[2022-02-13 08:38] LABS: BASO % 0.7 % (0-2.0); EOS % 1.5 % (0-4.5); HEMATOCRIT 22.9 % (32.4-45.2); HEMOGLOBIN 7.6 GM/dL (10.7-15.3); LYMPH % 26.6 % (8-40); MCH 30.8 pg (25.7-33.7); MCHC 33.4 g/dl (32.0-36.0); MEAN CELL VOLUME 92.4 fl (80-96); MEAN PLT VOLUME 10.1 fl (7.5-11.1); MONO % 7.8 % (3.8-10.2); NEUT % 63.4 % (42.8-82.8); PLATELET COUNT 227 10^3/uL (134-434); RBC 2.48 M/mm3 (3.60-5.2); RDW 13.4 % (11.6-15.6)
[2022-02-13 08:55] LABS: WHITE BLOOD COUNT 9.1 K/mm3 (4.0-10.0)
[2022-02-13 09:14] LABS: ALBUMIN 2.9 g/dl (3.4-5.0); BLOOD UREA NITROGEN 20.7 mg/dL (7-18); MAGNESIUM 2.1 mg/dL (1.8-2.4)
[2022-02-13 09:16] LABS: CALCIUM 8.5 mg/dL (8.5-10.1)
[2022-02-13 09:17] LABS: PHOSPHOROUS 3.5 mg/dL (2.5-4.9)
[2022-02-13 09:18] LABS: BILIRUBIN,TOTAL 0.9 mg/dL (0.2-1)
[2022-02-13 09:19] LABS: TOT PROT 6.2 g/dl (6.4-8.2)
[2022-02-13] MEDS: PANTOPRAZOLE 40 MG TABLET PO SCH (10:11)
[2022-02-13] MEDS: ENOXAPARIN NA (PORCINE) 40 MG/0.4 ML DISP.SYRIN SQ SCH (10:11)
[2022-02-13] MEDS: ASPIRIN 81 MG CHEWABLE TABLETS PO SCH (10:11)
[2022-02-13] MEDS: CLOPIDOGREL BISULFATE 75 MG TABLET (FP) PO SCH (10:11)
[2022-02-13] MEDS: LISINOPRIL 20 MG TABLET PO SCH (10:12)
[2022-02-13] MEDS ORDERED: INSULIN (NOVOLOG) ASPART 100 UNITS/ML 10ML VIAL ONE (21:16)
[2022-02-13] MEDS: ATORVASTATIN CA 40 MG TABLET (FP) PO SCH (22:00)
[2022-02-13] MEDS: INSULIN (LEVEMIR) 100 UNITS/ML UNITS SQ SCH (22:04)
[2022-02-14] MEDS ORDERED: PIPERACILLIN/TAZOBACTAM 3.375 GM VIAL IVPB ONE ×3 (05:46→21:21)
[2022-02-14] MEDS ORDERED: DEXTROSE 5%-WATER - 50 ML IVPB ONE ×3 (05:47→21:21)
[2022-02-14] MEDS: PIPERACILLIN/TAZOB 3.375 GM 3.375 GM in DEXTROSE 5%-WATER - 50 ML IVPB SCH ×3 (06:30→21:26)
[2022-02-14] MEDS: INSULIN SLIDING SCALE (NOVOLOG) 1 VIAL SQ SCH ×4 (06:30→21:27)
[2022-02-14] MEDS: LACTATED RINGERS SOLUTION 1,000 ML IV SCH ×2 (06:36→17:12)
[2022-02-14 07:30] LABS: HEMATOCRIT 24.4 % (32.4-45.2); HEMOGLOBIN 8.4 GM/dL (10.7-15.3); MCH 31.5 pg (25.7-33.7); MCHC 34.4 g/dl (32.0-36.0); MEAN CELL VOLUME 91.7 fl (80-96); MEAN PLT VOLUME 9.4 fl (7.5-11.1); PLATELET COUNT 233 10^3/uL (134-434); RBC 2.66 M/mm3 (3.60-5.2); RDW 13.6 % (11.6-15.6); WHITE BLOOD COUNT 8.5 K/mm3 (4.0-10.0)
[2022-02-14 07:56] LABS: CALCIUM 9.2 mg/dL (8.5-10.1)
[2022-02-14 07:57] LABS: BLOOD UREA NITROGEN 16.2 mg/dL (7-18)
[2022-02-14 08:00] LABS: CREATININE 0.9 mg/dL (0.55-1.3)
[2022-02-14] MEDS: PANTOPRAZOLE 40 MG TABLET PO SCH (10:04)
[2022-02-14] MEDS: CLOPIDOGREL BISULFATE 75 MG TABLET (FP) PO SCH (10:04)
[2022-02-14] MEDS: ASPIRIN 81 MG CHEWABLE TABLETS PO SCH (10:04)
[2022-02-14] MEDS: ENOXAPARIN NA (PORCINE) 40 MG/0.4 ML DISP.SYRIN SQ SCH (10:04)
[2022-02-14] MEDS: LISINOPRIL 20 MG TABLET PO SCH (10:04)
[2022-02-14] MEDS ORDERED: INSULIN (NOVOLOG) ASPART 100 UNITS/ML 10ML VIAL ONE (11:52)
[2022-02-14] MEDS: INSULIN (LEVEMIR) 100 UNITS/ML UNITS SQ SCH (21:26)
[2022-02-14] MEDS: ATORVASTATIN CA 40 MG TABLET (FP) PO SCH (21:27)
[2022-02-15] MEDS ORDERED: PIPERACILLIN/TAZOBACTAM 3.375 GM VIAL IVPB ONE ×3 (05:16→20:48)
[2022-02-15] MEDS ORDERED: DEXTROSE 5%-WATER - 50 ML IVPB ONE ×3 (05:16→20:48)
[2022-02-15] MEDS: PIPERACILLIN/TAZOB 3.375 GM 3.375 GM in DEXTROSE 5%-WATER - 50 ML IVPB SCH ×3 (05:19→21:43)
[2022-02-15] MEDS ORDERED: ONDANSETRON 4 MG/2 ML VIAL IVPUSH ONE ×2 (06:17→22:24)
[2022-02-15] MEDS: INSULIN SLIDING SCALE (NOVOLOG) 1 VIAL SQ SCH ×4 (06:25→21:56)
[2022-02-15 08:20] LABS: BASO % 0.6 % (0-2.0); BLOOD UREA NITROGEN 17.8 mg/dL (7-18); EOS % 1.5 % (0-4.5); HEMATOCRIT 22.8 % (32.4-45.2); HEMOGLOBIN 7.6 GM/dL (10.7-15.3); LYMPH % 19.9 % (8-40); MCH 31.3 pg (25.7-33.7); MCHC 33.5 g/dl (32.0-36.0); MEAN CELL VOLUME 93.3 fl (80-96); MEAN PLT VOLUME 9.9 fl (7.5-11.1); MONO % 7.2 % (3.8-10.2); NEUT % 70.8 % (42.8-82.8); PLATELET COUNT 217 10^3/uL (134-434); RBC 2.45 M/mm3 (3.60-5.2); WHITE BLOOD COUNT 9.5 K/mm3 (4.0-10.0)
[2022-02-15 08:21] LABS: CALCIUM 8.5 mg/dL (8.5-10.1)
[2022-02-15 08:23] LABS: CREATININE 1.2 mg/dL (0.55-1.3)
[2022-02-15] MEDS: ENOXAPARIN NA (PORCINE) 40 MG/0.4 ML DISP.SYRIN SQ SCH (10:00)
[2022-02-15] MEDS: PANTOPRAZOLE 40 MG TABLET PO SCH (10:01)
[2022-02-15] MEDS: CLOPIDOGREL BISULFATE 75 MG TABLET (FP) PO SCH (10:01)
[2022-02-15] MEDS: LISINOPRIL 20 MG TABLET PO SCH (10:01)
[2022-02-15] MEDS: ASPIRIN 81 MG CHEWABLE TABLETS PO SCH (10:01)
[2022-02-15] MEDS ORDERED: PIPERACILLIN/TAZOB 3.375 GM 3.375 GM in DEXTROSE 5%-WATER - 50 ML IVPB ONE (14:48)
[2022-02-15] MEDS ORDERED: SODIUM CHLORIDE 1,000 ML IV STA (14:49)
[2022-02-15] MEDS ORDERED: VANCOMYCIN 1 GM/200 ML PREMIX BAG IVPB ONE (15:15)
[2022-02-15] MEDS: LACTATED RINGERS SOLUTION 1,000 ML IV SCH (15:56)
[2022-02-15] MEDS ORDERED: FUROSEMIDE 40 MG/4 ML INJECTABLE VIAL IVPUSH ONE (16:58)
[2022-02-15] MEDS ORDERED: LORATADINE 10 MG TABLET PO ONE (19:29)
[2022-02-15] MEDS ORDERED: ALBUTEROL SO4 2.5/IPRATROPIUM 0.5 INH SOL 3 ML VIAL.NEB. NEB PRN ×2 (19:29→22:29)
[2022-02-15] MEDS ORDERED: BUDESONIDE/FORMETEROL FUMARATE 80/4.5 mcg INHALER IH ONE (19:29)
[2022-02-15] MEDS ORDERED: MAGNESIUM SULF 50% (8.12 MEQ/2 ML-1 GM VIAL) IVPB ONE (19:30)
[2022-02-15 20:03] LABS: HEMATOCRIT 30.8 % (32.4-45.2); HEMOGLOBIN 10.1 GM/dL (10.7-15.3); MCH 30.5 pg (25.7-33.7); MCHC 32.7 g/dl (32.0-36.0); MEAN CELL VOLUME 93.2 fl (80-96); MEAN PLT VOLUME 9.8 fl (7.5-11.1); PLATELET COUNT 216 10^3/uL (134-434); RDW 13.9 % (11.6-15.6); WHITE BLOOD COUNT 11.2 K/mm3 (4.0-10.0)
[2022-02-15 20:06] LABS: ARTERIAL BLD GAS O2 SATURATION 95.9 % (95-98); ARTERIAL BLOOD GAS PO2 77.8 mmHg (80-100); ARTERIAL BLOOD GAS pH 7.422 (7.350-7.450)
[2022-02-15 20:23] LABS: INR 1.23 (0.83-1.09); PROTHROMBIN TIME (PATIENT) 14.2 SEC (9.7-13.0)
[2022-02-15 20:26] LABS: ACTIVATED PTT 38.5 SECONDS (25.2-36.5)
[2022-02-15 20:30] LABS: ALBUMIN 2.8 g/dl (3.4-5.0); BLOOD UREA NITROGEN 19.1 mg/dL (7-18); MAGNESIUM 1.9 mg/dL (1.8-2.4)
[2022-02-15 20:33] LABS: CREATININE 1.1 mg/dL (0.55-1.3); PHOSPHOROUS 3.8 mg/dL (2.5-4.9)
[2022-02-15 20:34] LABS: TOT PROT 6.6 g/dl (6.4-8.2)
[2022-02-15 20:35] LABS: BILIRUBIN,TOTAL 1.6 mg/dL (0.2-1)
[2022-02-15 20:43] LABS: LACTIC ACID 2.5 mmol/L (0.4-2.0)
[2022-02-15] MEDS: INSULIN (LEVEMIR) 100 UNITS/ML UNITS SQ SCH (21:56)
[2022-02-15] MEDS: ATORVASTATIN CA 40 MG TABLET (FP) PO SCH (21:56)
[2022-02-15] MEDS ORDERED: RAPID SEQUENCE INTUBATION KIT NR ONE (22:40)
[2022-02-15] MEDS ORDERED: PROPOFOL 1,000,000 MCG/100 ML VIAL ONE (22:40)
[2022-02-15 23:06] LABS: ARTERIAL BLD GAS O2 SATURATION 84.4 % (95-98); ARTERIAL BLOOD GAS BASE EXCESS -2.5 mmol/L (-2-2); ARTERIAL BLOOD GAS PO2 50.2 mmHg (80-100); ARTERIAL BLOOD GAS pH 7.366 (7.350-7.450)
[2022-02-15 23:08] LABS: ALLENS TEST POSITIVE
[2022-02-15 23:33] LABS: ANISOCYTOSIS 0; MACROCYTOSIS 1+; PLATELET ESTIMATE NORMAL
[2022-02-15] MEDS: CHLORHEXIDINE GLUCONATE 4% CLEANSER FOR DECOLONIZATION TP SCH (23:38)
[2022-02-15] MEDS: MUPIROCIN 2% TOPICAL OINTMENT FOR DECOLONIZATION NS SCH (23:38)
[2022-02-15] MEDS: ALBUTEROL SO4 2.5/IPRATROPIUM 0.5 INH SOL 3 ML VIAL.NEB. NEB SCH (23:39)
[2022-02-16 01:03] LABS: ARTERIAL BLD GAS O2 SATURATION 97.9 % (95-98); ARTERIAL BLOOD GAS BASE EXCESS -3.8 mmol/L (-2-2); ARTERIAL BLOOD GAS PO2 107.8 mmHg (80-100); ARTERIAL BLOOD GAS pH 7.373 (7.350-7.450)
[2022-02-16 01:04] LABS: ALLENS TEST POSITIVE; VENT MODE S/T; VENT RATE 12
[2022-02-16] MEDS: ALBUTEROL SO4 2.5/IPRATROPIUM 0.5 INH SOL 3 ML VIAL.NEB. NEB SCH ×5 (03:33→20:10)
[2022-02-16] MEDS ORDERED: ONDANSETRON 4 MG/2 ML VIAL ONE (03:59)
[2022-02-16] MEDS ORDERED: DEXTROSE 5%-WATER - 50 ML IVPB ONE ×3 (05:15→21:19)
[2022-02-16] MEDS ORDERED: PIPERACILLIN/TAZOBACTAM 3.375 GM VIAL IVPB ONE ×3 (05:15→21:19)
[2022-02-16] MEDS: PIPERACILLIN/TAZOB 3.375 GM 3.375 GM in DEXTROSE 5%-WATER - 50 ML IVPB SCH ×3 (05:37→21:24)
[2022-02-16] MEDS: INSULIN SLIDING SCALE (NOVOLOG) 1 VIAL SQ SCH ×4 (06:02→22:19)
[2022-02-16] MEDS ORDERED: PROCHLORPERAZINE INJECTION 10 MG/2 ML VIAL IVPB ONE (06:14)
[2022-02-16 07:51] LABS: HEMATOCRIT 35.4 % (32.4-45.2); HEMOGLOBIN 12.1 GM/dL (10.7-15.3); MCH 31.3 pg (25.7-33.7); MCHC 34.2 g/dl (32.0-36.0); MEAN CELL VOLUME 91.7 fl (80-96); MEAN PLT VOLUME 9.9 fl (7.5-11.1); PLATELET COUNT 247 10^3/uL (134-434); RBC 3.86 M/mm3 (3.60-5.2); RDW 14.1 % (11.6-15.6); WHITE BLOOD COUNT 14.9 K/mm3 (4.0-10.0)
[2022-02-16 08:07] LABS: ALBUMIN 3.1 g/dl (3.4-5.0); BLOOD UREA NITROGEN 20.2 mg/dL (7-18); MAGNESIUM 2.1 mg/dL (1.8-2.4)
[2022-02-16 08:10] LABS: CREATININE 1.2 mg/dL (0.55-1.3); PHOSPHOROUS 3.7 mg/dL (2.5-4.9)
[2022-02-16 08:11] LABS: BILIRUBIN,TOTAL 1.4 mg/dL (0.2-1); TOT PROT 7.4 g/dl (6.4-8.2)
[2022-02-16] MEDS ORDERED: POTASSIUM CHLORIDE TABS 20 MEQ TABLET.ER (FP) PO ONE (09:00)
[2022-02-16] MEDS: ENOXAPARIN NA (PORCINE) 40 MG/0.4 ML DISP.SYRIN SQ SCH (09:14)
[2022-02-16] MEDS: PANTOPRAZOLE 40 MG TABLET PO SCH (09:14)
[2022-02-16] MEDS: ASPIRIN 81 MG CHEWABLE TABLETS PO SCH (09:14)
[2022-02-16] MEDS: LISINOPRIL 20 MG TABLET PO SCH (09:15)
[2022-02-16] MEDS: CLOPIDOGREL BISULFATE 75 MG TABLET (FP) PO SCH (09:15)
[2022-02-16] MEDS: MUPIROCIN 2% TOPICAL OINTMENT FOR DECOLONIZATION NS SCH ×2 (09:15→21:24)
[2022-02-16 09:34] LABS: ANISOCYTOSIS 0; HELMET CELLS 0; HOWELL-JOLLY BODIES 0; MACROCYTOSIS 0; OVALOCYTE 0; ROULEAU 0; SICKELED CELLS 0; TARGET CELLS 0; TEAR DROP CELLS 0; TOXIC GRANULATION 0
[2022-02-16 15:12] LABS: LACTIC ACID 4.5 mmol/L (0.4-2.0)
[2022-02-16] MEDS: PROCHLORPERAZINE INJECTION 10 MG/2 ML VIAL IVPB PRN ×2 (15:27→22:05)
[2022-02-16] MEDS ORDERED: SODIUM CHLORIDE 1,000 ML IV SCH (19:15)
[2022-02-16 20:21] LABS: LACTIC ACID 2.4 mmol/L (0.4-2.0)
[2022-02-16 20:59] LABS: ARTERIAL BLD GAS O2 SATURATION 93.4 % (95-98); ARTERIAL BLOOD GAS BASE EXCESS 2.7 mmol/L (-2-2); ARTERIAL BLOOD GAS PO2 67.4 mmHg (80-100); ARTERIAL BLOOD GAS pH 7.406 (7.350-7.450)
[2022-02-16 21:01] LABS: ALLENS TEST POSITIVE
[2022-02-16 21:02] LABS: VENT MODE S/T; VENT RATE 12
[2022-02-16] MEDS: CHLORHEXIDINE GLUCONATE 4% CLEANSER FOR DECOLONIZATION TP SCH (21:24)
[2022-02-16] MEDS ORDERED: ATORVASTATIN CA 40 MG TABLET (FP) PO SCH (22:00)
[2022-02-16] MEDS ORDERED: INSULIN (LEVEMIR) 100 UNITS/ML UNITS SQ SCH ×2 (22:00)
[2022-02-17] MEDS: ALBUTEROL SO4 2.5/IPRATROPIUM 0.5 INH SOL 3 ML VIAL.NEB. NEB SCH ×6 (00:12→20:36)
[2022-02-17] MEDS ORDERED: PIPERACILLIN/TAZOBACTAM 3.375 GM VIAL IVPB ONE ×3 (04:14→21:13)
[2022-02-17] MEDS ORDERED: DEXTROSE 5%-WATER - 50 ML IVPB ONE ×3 (04:14→21:13)
[2022-02-17] MEDS: PIPERACILLIN/TAZOB 3.375 GM 3.375 GM in DEXTROSE 5%-WATER - 50 ML IVPB SCH ×3 (04:56→21:47)
[2022-02-17] MEDS: INSULIN SLIDING SCALE (NOVOLOG) 1 VIAL SQ SCH ×4 (06:20→22:09)
[2022-02-17 07:05] LABS: HEMOGLOBIN 10.7 GM/dL (10.7-15.3); MCH 30.7 pg (25.7-33.7); MCHC 33.5 g/dl (32.0-36.0); MEAN CELL VOLUME 91.8 fl (80-96); MEAN PLT VOLUME 10.2 fl (7.5-11.1); PLATELET COUNT 256 10^3/uL (134-434); RBC 3.49 M/mm3 (3.60-5.2); RDW 14.4 % (11.6-15.6); WHITE BLOOD COUNT 15.8 K/mm3 (4.0-10.0)
[2022-02-17 07:23] LABS: CALCIUM 9.1 mg/dL (8.5-10.1)
[2022-02-17 07:24] LABS: ALBUMIN 3.1 g/dl (3.4-5.0); BLOOD UREA NITROGEN 22.6 mg/dL (7-18); INR 1.13 (0.83-1.09); MAGNESIUM 2.3 mg/dL (1.8-2.4)
[2022-02-17 07:27] LABS: CREATININE 1.1 mg/dL (0.55-1.3)
[2022-02-17 07:28] LABS: BILIRUBIN,TOTAL 1.3 mg/dL (0.2-1)
[2022-02-17 07:29] LABS: TOT PROT 7.4 g/dl (6.4-8.2)
[2022-02-17] MEDS: CLOPIDOGREL BISULFATE 75 MG TABLET (FP) PO SCH (10:04)
[2022-02-17] MEDS: PANTOPRAZOLE 40 MG TABLET PO SCH (10:04)
[2022-02-17] MEDS: LISINOPRIL 20 MG TABLET PO SCH (10:04)
[2022-02-17] MEDS: ASPIRIN 81 MG CHEWABLE TABLETS PO SCH (10:04)
[2022-02-17] MEDS: ENOXAPARIN NA (PORCINE) 40 MG/0.4 ML DISP.SYRIN SQ SCH (10:04)
[2022-02-17] MEDS: MUPIROCIN 2% TOPICAL OINTMENT FOR DECOLONIZATION NS SCH ×2 (10:05→21:48)
[2022-02-17] MEDS ORDERED: FUROSEMIDE 40 MG/4 ML INJECTABLE VIAL IVPUSH ONE (11:00)
[2022-02-17 20:25] LABS: HEPATITIS B SURFACE AG MATERN NON-REACTIVE (NONREACTIVE)
[2022-02-17] MEDS: CHLORHEXIDINE GLUCONATE 4% CLEANSER FOR DECOLONIZATION TP SCH (21:48)
[2022-02-17] MEDS: INSULIN (LEVEMIR) 100 UNITS/ML UNITS SQ SCH (21:48)
[2022-02-18] MEDS: ALBUTEROL SO4 2.5/IPRATROPIUM 0.5 INH SOL 3 ML VIAL.NEB. NEB SCH ×5 (00:47→20:54)
[2022-02-18] MEDS ORDERED: PIPERACILLIN/TAZOBACTAM 3.375 GM VIAL IVPB ONE ×3 (04:26→20:43)
[2022-02-18] MEDS ORDERED: DEXTROSE 5%-WATER - 50 ML IVPB ONE ×3 (04:27→20:43)
[2022-02-18] MEDS: PIPERACILLIN/TAZOB 3.375 GM 3.375 GM in DEXTROSE 5%-WATER - 50 ML IVPB SCH ×3 (04:36→20:55)
[2022-02-18] MEDS: INSULIN SLIDING SCALE (NOVOLOG) 1 VIAL SQ SCH ×4 (06:24→22:04)
[2022-02-18] MEDS: INSULIN (LEVEMIR) 100 UNITS/ML UNITS SQ SCH (06:26)
[2022-02-18 08:11] LABS: CHLORIDE 124 mmol/L (98-107)
[2022-02-18 08:13] LABS: BASO % 0.3 % (0-2.0); CALCIUM 9.4 mg/dL (8.5-10.1); HEMATOCRIT 32.3 % (32.4-45.2); INR 1.14 (0.83-1.09); LYMPH % 5.2 % (8-40); MCH 31.1 pg (25.7-33.7); MCHC 34.2 g/dl (32.0-36.0); MONO % 4.5 % (3.8-10.2); PLATELET COUNT 264 10^3/uL (134-434); PROTHROMBIN TIME (PATIENT) 13.1 SEC (9.7-13.0); RBC 3.55 M/mm3 (3.60-5.2); RDW 14.2 % (11.6-15.6); WHITE BLOOD COUNT 15.3 K/mm3 (4.0-10.0)
[2022-02-18 08:14] LABS: BLOOD UREA NITROGEN 20.4 mg/dL (7-18); CO2 32 mmol/L (21-32); GLUCOSE,RANDOM 105 mg/dL (74-106); MAGNESIUM 2.4 mg/dL (1.8-2.4)
[2022-02-18 08:17] LABS: CREATININE 0.8 mg/dL (0.55-1.3); PHOSPHOROUS 2.7 mg/dL (2.5-4.9); SGOT/AST 121 U/L (15-37); SGPT/ALT 486 U/L (13-61)
[2022-02-18 08:18] LABS: BILIRUBIN,TOTAL 0.9 mg/dL (0.2-1); TOT PROT 7.6 g/dl (6.4-8.2)
[2022-02-18 08:20] LABS: ALK PHOS 142 U/L (45-117)
[2022-02-18 08:42] LABS: ANION GAP 11 MMOL/L (8-16); SODIUM 166 mmol/L (136-145)
[2022-02-18] MEDS: MULTIVITAMINS (DAILY MVI) TABLET (FP) PO SCH (09:33)
[2022-02-18] MEDS: PROCHLORPERAZINE INJECTION 10 MG/2 ML VIAL IVPB PRN (09:33)
[2022-02-18] MEDS: LISINOPRIL 20 MG TABLET PO SCH (09:34)
[2022-02-18] MEDS: CLOPIDOGREL BISULFATE 75 MG TABLET (FP) PO SCH (09:34)
[2022-02-18] MEDS: MUPIROCIN 2% TOPICAL OINTMENT FOR DECOLONIZATION NS SCH ×2 (09:34→22:04)
[2022-02-18] MEDS: ASPIRIN 81 MG CHEWABLE TABLETS PO SCH (09:34)
[2022-02-18] MEDS: ENOXAPARIN NA (PORCINE) 40 MG/0.4 ML DISP.SYRIN SQ SCH (09:34)
[2022-02-18] MEDS: PANTOPRAZOLE 40 MG TABLET PO SCH (09:34)
[2022-02-18] MEDS ORDERED: AMINO ACIDS 4.25%/D5W 1,000 ML IV SCH (09:45)
[2022-02-18 11:15] LABS: ALBUMIN 2.7 g/dl (3.4-5.0); BLOOD UREA NITROGEN 19.6 mg/dL (7-18)
[2022-02-18 11:18] LABS: CREATININE 0.7 mg/dL (0.55-1.3)
[2022-02-18 11:19] LABS: TOT PROT 7.4 g/dl (6.4-8.2)
[2022-02-18 11:20] LABS: BILIRUBIN,TOTAL 0.8 mg/dL (0.2-1)
[2022-02-18] MEDS ORDERED: FUROSEMIDE 40 MG/4 ML INJECTABLE VIAL IVPUSH ONE (11:39)
[2022-02-18] MEDS ORDERED: DRONABINOL 5 MG CAPSULE PO SCH (17:30)
[2022-02-18] MEDS ORDERED: DRONABINOL 2.5 MG CAPSULE PO SCH (17:30)
[2022-02-18] MEDS ORDERED: INSULIN (LEVEMIR) 100 UNITS/ML UNITS SQ SCH (22:00)
[2022-02-18] MEDS: CHLORHEXIDINE GLUCONATE 4% CLEANSER FOR DECOLONIZATION TP SCH (22:04)
[2022-02-19] MEDS ORDERED: DEXTROSE 5%-WATER - 50 ML IVPB ONE ×3 (04:03→20:22)
[2022-02-19] MEDS ORDERED: PIPERACILLIN/TAZOBACTAM 3.375 GM VIAL IVPB ONE ×3 (04:03→20:22)
[2022-02-19] MEDS: PIPERACILLIN/TAZOB 3.375 GM 3.375 GM in DEXTROSE 5%-WATER - 50 ML IVPB SCH ×3 (04:10→22:16)
[2022-02-19] MEDS: INSULIN SLIDING SCALE (NOVOLOG) 1 VIAL SQ SCH ×4 (06:26→22:44)
[2022-02-19 07:34] LABS: BASO % 0.6 % (0-2.0); EOS % 0.3 % (0-4.5); HEMATOCRIT 30.7 % (32.4-45.2); HEMOGLOBIN 10.5 GM/dL (10.7-15.3); LYMPH % 5.9 % (8-40); MCH 31.2 pg (25.7-33.7); MCHC 34.1 g/dl (32.0-36.0); MEAN CELL VOLUME 91.7 fl (80-96); MEAN PLT VOLUME 10.1 fl (7.5-11.1); MONO % 4.1 % (3.8-10.2); NEUT % 89.1 % (42.8-82.8); PLATELET COUNT 265 10^3/uL (134-434); RBC 3.35 M/mm3 (3.60-5.2); RDW 14.3 % (11.6-15.6); WHITE BLOOD COUNT 12.9 K/mm3 (4.0-10.0)
[2022-02-19 07:52] LABS: ALBUMIN 2.4 g/dl (3.4-5.0); BLOOD UREA NITROGEN 29.5 mg/dL (7-18); CALCIUM 8.5 mg/dL (8.5-10.1)
[2022-02-19 07:56] LABS: CREATININE 1.2 mg/dL (0.55-1.3)
[2022-02-19 07:58] LABS: BILIRUBIN,TOTAL 0.9 mg/dL (0.2-1); TOT PROT 6.8 g/dl (6.4-8.2)
[2022-02-19] MEDS: ALBUTEROL SO4 2.5/IPRATROPIUM 0.5 INH SOL 3 ML VIAL.NEB. NEB SCH (08:20)
[2022-02-19] MEDS ORDERED: POTASSIUM CHLORIDE TABS 20 MEQ TABLET.ER (FP) PO ONE (09:15)
[2022-02-19] MEDS: ENOXAPARIN NA (PORCINE) 40 MG/0.4 ML DISP.SYRIN SQ SCH (09:33)
[2022-02-19] MEDS: MUPIROCIN 2% TOPICAL OINTMENT FOR DECOLONIZATION NS SCH ×2 (09:33→22:16)
[2022-02-19] MEDS: KCL 10 MEQ IVPB 10 MEQ/100 ML INFUS.BAG IVPB SCH ×3 (09:33→11:56)
[2022-02-19] MEDS: MULTIVITAMINS (DAILY MVI) TABLET (FP) PO SCH (09:33)
[2022-02-19] MEDS: PANTOPRAZOLE 40 MG TABLET PO SCH (09:33)
[2022-02-19] MEDS: ASPIRIN 81 MG CHEWABLE TABLETS PO SCH (09:33)
[2022-02-19] MEDS: CLOPIDOGREL BISULFATE 75 MG TABLET (FP) PO SCH (09:34)
[2022-02-19] MEDS: LISINOPRIL 20 MG TABLET PO SCH (09:34)
[2022-02-19] MEDS: DRONABINOL 5 MG CAPSULE PO SCH ×2 (11:56→16:58)
[2022-02-19] MEDS: CHLORHEXIDINE GLUCONATE 4% CLEANSER FOR DECOLONIZATION TP SCH (22:16)
[2022-02-20] MEDS ORDERED: PIPERACILLIN/TAZOBACTAM 3.375 GM VIAL IVPB ONE ×4 (05:20→19:27)
[2022-02-20] MEDS ORDERED: DEXTROSE 5%-WATER - 50 ML IVPB ONE ×4 (05:21→19:27)
[2022-02-20 06:45] LABS: BASO % 0.6 % (0-2.0); EOS % 1.6 % (0-4.5); HEMATOCRIT 29.5 % (32.4-45.2); HEMOGLOBIN 9.7 GM/dL (10.7-15.3); LYMPH % 7.3 % (8-40); MCH 30.6 pg (25.7-33.7); MCHC 33.1 g/dl (32.0-36.0); MEAN CELL VOLUME 92.6 fl (80-96); MEAN PLT VOLUME 10.1 fl (7.5-11.1); NEUT % 85.5 % (42.8-82.8); PLATELET COUNT 267 10^3/uL (134-434); RBC 3.18 M/mm3 (3.60-5.2); RDW 14.3 % (11.6-15.6); WHITE BLOOD COUNT 12.9 K/mm3 (4.0-10.0)
[2022-02-20] MEDS: PIPERACILLIN/TAZOB 3.375 GM 3.375 GM in DEXTROSE 5%-WATER - 50 ML IVPB SCH ×3 (06:55→21:09)
[2022-02-20] MEDS: INSULIN SLIDING SCALE (NOVOLOG) 1 VIAL SQ SCH ×4 (06:55→21:09)
[2022-02-20 07:10] LABS: CALCIUM 8.5 mg/dL (8.5-10.1)
[2022-02-20 07:11] LABS: ALBUMIN 2.3 g/dl (3.4-5.0)
[2022-02-20 07:15] LABS: CREATININE 1.6 mg/dL (0.55-1.3)
[2022-02-20 07:16] LABS: BILIRUBIN,TOTAL 0.8 mg/dL (0.2-1)
[2022-02-20] MEDS: PANTOPRAZOLE 40 MG TABLET PO SCH (09:34)
[2022-02-20] MEDS: LISINOPRIL 20 MG TABLET PO SCH (09:34)
[2022-02-20] MEDS: CLOPIDOGREL BISULFATE 75 MG TABLET (FP) PO SCH (09:34)
[2022-02-20] MEDS: ASPIRIN 81 MG CHEWABLE TABLETS PO SCH (09:34)
[2022-02-20] MEDS: MUPIROCIN 2% TOPICAL OINTMENT FOR DECOLONIZATION NS SCH (09:35)
[2022-02-20] MEDS: ENOXAPARIN NA (PORCINE) 40 MG/0.4 ML DISP.SYRIN SQ SCH (09:35)
[2022-02-20] MEDS: MULTIVITAMINS (DAILY MVI) TABLET (FP) PO SCH (09:35)
[2022-02-20] MEDS: DRONABINOL 5 MG CAPSULE PO SCH ×2 (10:20→16:21)
[2022-02-20] MEDS ORDERED: FUROSEMIDE 40 MG/4 ML INJECTABLE VIAL IVPUSH ONE (19:36)
[2022-02-20] MEDS: CHLORHEXIDINE GLUCONATE 4% CLEANSER FOR DECOLONIZATION TP SCH (21:09)
[2022-02-20 22:16] LABS: MAGNESIUM 2.3 mg/dL (1.8-2.4)
[2022-02-20 22:19] LABS: PHOSPHOROUS 3.2 mg/dL (2.5-4.9)
[2022-02-21] MEDS ORDERED: DEXTROSE 5%-WATER - 50 ML IVPB ONE ×3 (05:23→20:55)
[2022-02-21] MEDS ORDERED: PIPERACILLIN/TAZOBACTAM 3.375 GM VIAL IVPB ONE ×3 (05:23→20:55)
[2022-02-21] MEDS: PIPERACILLIN/TAZOB 3.375 GM 3.375 GM in DEXTROSE 5%-WATER - 50 ML IVPB SCH ×3 (06:41→22:00)
[2022-02-21 07:39] LABS: BASO % 0.7 % (0-2.0); EOS % 2.6 % (0-4.5); HEMATOCRIT 27.8 % (32.4-45.2); HEMOGLOBIN 9.5 GM/dL (10.7-15.3); LYMPH % 6.9 % (8-40); MCH 31.6 pg (25.7-33.7); MCHC 34.2 g/dl (32.0-36.0); MEAN CELL VOLUME 92.2 fl (80-96); MONO % 5.9 % (3.8-10.2); NEUT % 83.9 % (42.8-82.8); PLATELET COUNT 266 10^3/uL (134-434); RBC 3.02 M/mm3 (3.60-5.2); WHITE BLOOD COUNT 10.7 K/mm3 (4.0-10.0)
[2022-02-21] MEDS: INSULIN SLIDING SCALE (NOVOLOG) 1 VIAL SQ SCH ×4 (08:21→23:59)
[2022-02-21 08:35] LABS: ALBUMIN 2.1 g/dl (3.4-5.0); BLOOD UREA NITROGEN 27.5 mg/dL (7-18)
[2022-02-21 08:38] LABS: CREATININE 1.1 mg/dL (0.55-1.3); PHOSPHOROUS 2.7 mg/dL (2.5-4.9)
[2022-02-21 08:40] LABS: BILIRUBIN,TOTAL 0.6 mg/dL (0.2-1); TOT PROT 6.7 g/dl (6.4-8.2)
[2022-02-21 08:41] LABS: CALCIUM 8.4 mg/dL (8.5-10.1); MAGNESIUM 2.4 mg/dL (1.8-2.4)
[2022-02-21] MEDS: PANTOPRAZOLE 40 MG TABLET PO SCH (10:18)
[2022-02-21] MEDS: ASPIRIN 81 MG CHEWABLE TABLETS PO SCH (10:18)
[2022-02-21] MEDS: LISINOPRIL 20 MG TABLET PO SCH (10:18)
[2022-02-21] MEDS: MULTIVITAMINS (DAILY MVI) TABLET (FP) PO SCH (10:18)
[2022-02-21] MEDS: ENOXAPARIN NA (PORCINE) 40 MG/0.4 ML DISP.SYRIN SQ SCH (10:18)
[2022-02-21] MEDS: CLOPIDOGREL BISULFATE 75 MG TABLET (FP) PO SCH (10:19)
[2022-02-21] MEDS: DRONABINOL 5 MG CAPSULE PO SCH ×2 (13:19→17:59)
[2022-02-21] MEDS: CHLORHEXIDINE GLUCONATE 4% CLEANSER FOR DECOLONIZATION TP SCH (23:59)
[2022-02-22] MEDS: INSULIN SLIDING SCALE (NOVOLOG) 1 VIAL SQ SCH ×5 (00:01→21:15)
[2022-02-22] MEDS ORDERED: PIPERACILLIN/TAZOBACTAM 3.375 GM VIAL IVPB ONE ×3 (03:18→20:08)
[2022-02-22] MEDS ORDERED: DEXTROSE 5%-WATER - 50 ML IVPB ONE ×3 (03:18→20:08)
[2022-02-22] MEDS: PIPERACILLIN/TAZOB 3.375 GM 3.375 GM in DEXTROSE 5%-WATER - 50 ML IVPB SCH ×3 (06:48→21:15)
[2022-02-22 07:25] LABS: HEMATOCRIT 29.5 % (32.4-45.2); HEMOGLOBIN 9.9 GM/dL (10.7-15.3); MCHC 33.5 g/dl (32.0-36.0); MEAN CELL VOLUME 92.5 fl (80-96); MEAN PLT VOLUME 9.7 fl (7.5-11.1); PLATELET COUNT 283 10^3/uL (134-434); RBC 3.19 M/mm3 (3.60-5.2); RDW 13.9 % (11.6-15.6); WHITE BLOOD COUNT 9.8 K/mm3 (4.0-10.0)
[2022-02-22 07:54] LABS: CALCIUM 8.4 mg/dL (8.5-10.1); MAGNESIUM 2.5 mg/dL (1.8-2.4)
[2022-02-22 07:55] LABS: BLOOD UREA NITROGEN 22.2 mg/dL (7-18)
[2022-02-22 07:59] LABS: CREATININE 0.9 mg/dL (0.55-1.3); PHOSPHOROUS 2.5 mg/dL (2.5-4.9)
[2022-02-22] MEDS: LISINOPRIL 20 MG TABLET PO SCH (09:14)
[2022-02-22] MEDS: CLOPIDOGREL BISULFATE 75 MG TABLET (FP) PO SCH (09:15)
[2022-02-22] MEDS: ENOXAPARIN NA (PORCINE) 40 MG/0.4 ML DISP.SYRIN SQ SCH (09:15)
[2022-02-22] MEDS: MULTIVITAMINS (DAILY MVI) TABLET (FP) PO SCH (09:15)
[2022-02-22] MEDS: ASPIRIN 81 MG CHEWABLE TABLETS PO SCH (09:15)
[2022-02-22] MEDS: PANTOPRAZOLE 40 MG TABLET PO SCH (09:15)
[2022-02-22] MEDS ORDERED: FUROSEMIDE 40 MG/4 ML INJECTABLE VIAL IVPUSH ONE (10:38)
[2022-02-22 12:08] LABS: N-TERMINAL BNP 3729.7 pg/ml (5-125)
[2022-02-22] MEDS: DRONABINOL 5 MG CAPSULE PO SCH ×2 (12:53→17:46)
[2022-02-22] MEDS: ALBUTEROL SO4 2.5/IPRATROPIUM 0.5 INH SOL 3 ML VIAL.NEB. NEB PRN (20:30)
[2022-02-22] MEDS: CHLORHEXIDINE GLUCONATE 4% CLEANSER FOR DECOLONIZATION TP SCH (21:15)
[2022-02-23] MEDS ORDERED: DEXTROSE 5%-WATER - 50 ML IVPB ONE ×3 (06:10→21:46)
[2022-02-23] MEDS ORDERED: PIPERACILLIN/TAZOBACTAM 3.375 GM VIAL IVPB ONE ×3 (06:10→21:46)
[2022-02-23] MEDS: PIPERACILLIN/TAZOB 3.375 GM 3.375 GM in DEXTROSE 5%-WATER - 50 ML IVPB SCH ×3 (06:32→21:47)
[2022-02-23 06:44] LABS: HEMATOCRIT 25.5 % (32.4-45.2); HEMOGLOBIN 8.6 GM/dL (10.7-15.3); MCH 31.1 pg (25.7-33.7); MCHC 33.6 g/dl (32.0-36.0); MEAN CELL VOLUME 92.4 fl (80-96); MEAN PLT VOLUME 9.8 fl (7.5-11.1); PLATELET COUNT 253 10^3/uL (134-434); RBC 2.76 M/mm3 (3.60-5.2); RDW 14.1 % (11.6-15.6); WHITE BLOOD COUNT 7.8 K/mm3 (4.0-10.0)
[2022-02-23] MEDS: INSULIN SLIDING SCALE (NOVOLOG) 1 VIAL SQ SCH ×4 (06:55→21:54)
[2022-02-23 07:08] LABS: CALCIUM 8.4 mg/dL (8.5-10.1)
[2022-02-23 07:12] LABS: CREATININE 1.1 mg/dL (0.55-1.3)
[2022-02-23 07:13] LABS: BLOOD UREA NITROGEN 22.4 mg/dL (7-18)
[2022-02-23] MEDS ORDERED: FUROSEMIDE 40 MG/4 ML INJECTABLE VIAL IVPUSH ONE (09:15)
[2022-02-23] MEDS: ASPIRIN 81 MG CHEWABLE TABLETS PO SCH (10:39)
[2022-02-23] MEDS: LISINOPRIL 20 MG TABLET PO SCH (10:39)
[2022-02-23] MEDS: ENOXAPARIN NA (PORCINE) 40 MG/0.4 ML DISP.SYRIN SQ SCH (10:39)
[2022-02-23] MEDS: MULTIVITAMINS (DAILY MVI) TABLET (FP) PO SCH (10:39)
[2022-02-23] MEDS: CLOPIDOGREL BISULFATE 75 MG TABLET (FP) PO SCH (10:39)
[2022-02-23] MEDS: PANTOPRAZOLE 40 MG TABLET PO SCH (10:39)
[2022-02-23] MEDS: DRONABINOL 5 MG CAPSULE PO SCH ×2 (10:47→17:46)
[2022-02-23] MEDS: ALBUTEROL SO4 2.5/IPRATROPIUM 0.5 INH SOL 3 ML VIAL.NEB. NEB PRN (20:41)
[2022-02-23] MEDS: CHLORHEXIDINE GLUCONATE 4% CLEANSER FOR DECOLONIZATION TP SCH (21:48)
[2022-02-23] MEDS ORDERED: ATORVASTATIN CA 40 MG TABLET (FP) PO SCH (22:00)
[2022-02-24] MEDS ORDERED: PIPERACILLIN/TAZOBACTAM 3.375 GM VIAL IVPB ONE ×3 (03:15→21:25)
[2022-02-24] MEDS ORDERED: DEXTROSE 5%-WATER - 50 ML IVPB ONE ×3 (03:15→21:25)
[2022-02-24] MEDS: PIPERACILLIN/TAZOB 3.375 GM 3.375 GM in DEXTROSE 5%-WATER - 50 ML IVPB SCH ×3 (05:49→22:21)
[2022-02-24] MEDS: INSULIN SLIDING SCALE (NOVOLOG) 1 VIAL SQ SCH ×5 (06:00→22:22)
[2022-02-24 06:44] LABS: HEMATOCRIT 25.4 % (32.4-45.2); HEMOGLOBIN 8.5 GM/dL (10.7-15.3); MCH 30.9 pg (25.7-33.7); MCHC 33.5 g/dl (32.0-36.0); MEAN CELL VOLUME 92.3 fl (80-96); MEAN PLT VOLUME 9.8 fl (7.5-11.1); PLATELET COUNT 273 10^3/uL (134-434); RBC 2.75 M/mm3 (3.60-5.2); RDW 13.6 % (11.6-15.6); WHITE BLOOD COUNT 7.2 K/mm3 (4.0-10.0)
[2022-02-24 07:07] LABS: CALCIUM 8.5 mg/dL (8.5-10.1)
[2022-02-24 07:08] LABS: BLOOD UREA NITROGEN 22.4 mg/dL (7-18)
[2022-02-24 07:11] LABS: CREATININE 1.1 mg/dL (0.55-1.3)
[2022-02-24 07:12] LABS: BILIRUBIN,TOTAL 0.4 mg/dL (0.2-1); TOT PROT 6.8 g/dl (6.4-8.2)
[2022-02-24] MEDS: CLOPIDOGREL BISULFATE 75 MG TABLET (FP) PO SCH (09:13)
[2022-02-24] MEDS: LISINOPRIL 20 MG TABLET PO SCH (09:13)
[2022-02-24] MEDS: ASPIRIN 81 MG CHEWABLE TABLETS PO SCH (09:13)
[2022-02-24] MEDS: ENOXAPARIN NA (PORCINE) 40 MG/0.4 ML DISP.SYRIN SQ SCH (09:13)
[2022-02-24] MEDS: MULTIVITAMINS (DAILY MVI) TABLET (FP) PO SCH (09:13)
[2022-02-24] MEDS: PANTOPRAZOLE 40 MG TABLET PO SCH (09:13)
[2022-02-24] MEDS ORDERED: FUROSEMIDE 40 MG/4 ML INJECTABLE VIAL IVPUSH ONE (09:45)
[2022-02-24] MEDS: DRONABINOL 5 MG CAPSULE PO SCH ×2 (11:33→18:39)
[2022-02-24] MEDS ORDERED: ALBUTEROL SO4 2.5/IPRATROPIUM 0.5 INH SOL 3 ML VIAL.NEB. NEB PRN (17:05)
[2022-02-24] MEDS ORDERED: PROCHLORPERAZINE INJECTION 10 MG/2 ML VIAL IVPB PRN (17:05)
[2022-02-24] MEDS ORDERED: CHLORHEXIDINE GLUCONATE 4% CLEANSER FOR DECOLONIZATION TP SCH (22:00)
[2022-02-24] MEDS ORDERED: INSULIN SLIDING SCALE (NOVOLOG) 1 VIAL SQ SCH (22:00)
[2022-02-24] MEDS: ATORVASTATIN CA 40 MG TABLET (FP) PO SCH (22:22)
[2022-02-25] MEDS ORDERED: DEXTROSE 5%-WATER - 50 ML IVPB ONE ×3 (05:18→21:52)
[2022-02-25] MEDS ORDERED: PIPERACILLIN/TAZOBACTAM 3.375 GM VIAL IVPB ONE ×3 (05:18→21:52)
[2022-02-25] MEDS: PIPERACILLIN/TAZOB 3.375 GM 3.375 GM in DEXTROSE 5%-WATER - 50 ML IVPB SCH ×3 (05:58→21:55)
[2022-02-25] MEDS: INSULIN SLIDING SCALE (NOVOLOG) 1 VIAL SQ SCH ×4 (06:05→22:05)
[2022-02-25 07:17] LABS: HEMATOCRIT 27.4 % (32.4-45.2); HEMOGLOBIN 9.2 GM/dL (10.7-15.3); MCH 30.9 pg (25.7-33.7); MCHC 33.5 g/dl (32.0-36.0); MEAN CELL VOLUME 92.1 fl (80-96); MEAN PLT VOLUME 9.5 fl (7.5-11.1); PLATELET COUNT 300 10^3/uL (134-434); RBC 2.97 M/mm3 (3.60-5.2); RDW 14.1 % (11.6-15.6); WHITE BLOOD COUNT 8.1 K/mm3 (4.0-10.0)
[2022-02-25 07:21] LABS: BASO % 0.8 % (0-2.0); HEMATOCRIT 27.1 % (32.4-45.2); LYMPH % 14.1 % (8-40); MCH 30.6 pg (25.7-33.7); MCHC 33.2 g/dl (32.0-36.0); MEAN CELL VOLUME 92.2 fl (80-96); MEAN PLT VOLUME 9.7 fl (7.5-11.1); MONO % 6.6 % (3.8-10.2); NEUT % 72.5 % (42.8-82.8); PLATELET COUNT 296 10^3/uL (134-434); RBC 2.94 M/mm3 (3.60-5.2); RDW 13.8 % (11.6-15.6)
[2022-02-25 07:55] LABS: ALBUMIN 2.1 g/dl (3.4-5.0); BLOOD UREA NITROGEN 21.5 mg/dL (7-18); CALCIUM 8.8 mg/dL (8.5-10.1)
[2022-02-25 07:56] LABS: MAGNESIUM 2.1 mg/dL (1.8-2.4)
[2022-02-25 07:58] LABS: PHOSPHOROUS 3.4 mg/dL (2.5-4.9)
[2022-02-25 08:00] LABS: BILIRUBIN,TOTAL 0.5 mg/dL (0.2-1); TOT PROT 7.1 g/dl (6.4-8.2)
[2022-02-25] MEDS: ENOXAPARIN NA (PORCINE) 40 MG/0.4 ML DISP.SYRIN SQ SCH (10:25)
[2022-02-25] MEDS: ASPIRIN 81 MG CHEWABLE TABLETS PO SCH (10:25)
[2022-02-25] MEDS: FUROSEMIDE 40 MG/4 ML INJECTABLE VIAL IVPUSH SCH (10:26)
[2022-02-25] MEDS: CLOPIDOGREL BISULFATE 75 MG TABLET (FP) PO SCH (10:26)
[2022-02-25] MEDS: LISINOPRIL 20 MG TABLET PO SCH (10:26)
[2022-02-25] MEDS: MULTIVITAMINS (DAILY MVI) TABLET (FP) PO SCH (10:26)
[2022-02-25] MEDS: PANTOPRAZOLE 40 MG TABLET PO SCH (10:26)
[2022-02-25] MEDS: DRONABINOL 5 MG CAPSULE PO SCH ×2 (12:35→16:59)
[2022-02-25] MEDS: ATORVASTATIN CA 40 MG TABLET (FP) PO SCH (21:55)
[2022-02-26] MEDS ORDERED: DEXTROSE 5%-WATER - 50 ML IVPB ONE (04:54)
[2022-02-26] MEDS ORDERED: PIPERACILLIN/TAZOBACTAM 3.375 GM VIAL IVPB ONE (04:54)
[2022-02-26] MEDS: PIPERACILLIN/TAZOB 3.375 GM 3.375 GM in DEXTROSE 5%-WATER - 50 ML IVPB SCH (05:33)
[2022-02-26] MEDS: INSULIN SLIDING SCALE (NOVOLOG) 1 VIAL SQ SCH ×4 (06:44→21:30)
[2022-02-26 08:51] LABS: BASO % 0.8 % (0-2.0); EOS % 6.4 % (0-4.5); LYMPH % 14.4 % (8-40); MCH 30.6 pg (25.7-33.7); MCHC 33.2 g/dl (32.0-36.0); MEAN PLT VOLUME 9.4 fl (7.5-11.1); MONO % 6.8 % (3.8-10.2); NEUT % 71.6 % (42.8-82.8); PLATELET COUNT 334 10^3/uL (134-434); RBC 2.94 M/mm3 (3.60-5.2); RDW 13.6 % (11.6-15.6); WHITE BLOOD COUNT 8.3 K/mm3 (4.0-10.0)
[2022-02-26 09:16] LABS: ALBUMIN 2.2 g/dl (3.4-5.0)
[2022-02-26 09:17] LABS: BLOOD UREA NITROGEN 16.6 mg/dL (7-18); CALCIUM 8.8 mg/dL (8.5-10.1); MAGNESIUM 2.1 mg/dL (1.8-2.4)
[2022-02-26 09:21] LABS: CREATININE 0.9 mg/dL (0.55-1.3); PHOSPHOROUS 3.1 mg/dL (2.5-4.9)
[2022-02-26 09:22] LABS: BILIRUBIN,TOTAL 0.5 mg/dL (0.2-1); TOT PROT 7.2 g/dl (6.4-8.2)
[2022-02-26] MEDS: ENOXAPARIN NA (PORCINE) 40 MG/0.4 ML DISP.SYRIN SQ SCH (10:50)
[2022-02-26] MEDS: LISINOPRIL 20 MG TABLET PO SCH (10:55)
[2022-02-26] MEDS: PANTOPRAZOLE 40 MG TABLET PO SCH (10:55)
[2022-02-26] MEDS: FUROSEMIDE 40 MG/4 ML INJECTABLE VIAL IVPUSH SCH (10:55)
[2022-02-26] MEDS: ASPIRIN 81 MG CHEWABLE TABLETS PO SCH (10:55)
[2022-02-26] MEDS: CLOPIDOGREL BISULFATE 75 MG TABLET (FP) PO SCH (10:56)
[2022-02-26] MEDS: MULTIVITAMINS (DAILY MVI) TABLET (FP) PO SCH (10:56)
[2022-02-26] MEDS: DRONABINOL 5 MG CAPSULE PO SCH ×2 (11:09→16:30)
[2022-02-26] MEDS ORDERED: DEXTROSE 5%-WATER 100 ML IVPB ONE (16:15)
[2022-02-26] MEDS: CEFTRIAXONE 2 GM in DEXTROSE 5%-WATER 2 GM/100 ML BAG IVPB SCH (16:29)
[2022-02-26] MEDS: ATORVASTATIN CA 40 MG TABLET (FP) PO SCH (21:30)
[2022-02-27] MEDS: INSULIN SLIDING SCALE (NOVOLOG) 1 VIAL SQ SCH ×4 (06:39→21:58)
[2022-02-27 08:41] LABS: BASO % 1.2 % (0-2.0); EOS % 5.9 % (0-4.5); HEMATOCRIT 25.6 % (32.4-45.2); HEMOGLOBIN 8.7 GM/dL (10.7-15.3); LYMPH % 14.7 % (8-40); MCH 30.9 pg (25.7-33.7); MCHC 33.9 g/dl (32.0-36.0); MEAN CELL VOLUME 91.2 fl (80-96); MEAN PLT VOLUME 9.2 fl (7.5-11.1); MONO % 6.4 % (3.8-10.2); NEUT % 71.8 % (42.8-82.8); PLATELET COUNT 321 10^3/uL (134-434); RDW 13.8 % (11.6-15.6); WHITE BLOOD COUNT 8.3 K/mm3 (4.0-10.0)
[2022-02-27 09:02] LABS: CALCIUM 8.8 mg/dL (8.5-10.1)
[2022-02-27 09:03] LABS: ALBUMIN 2.2 g/dl (3.4-5.0); BLOOD UREA NITROGEN 15.4 mg/dL (7-18)
[2022-02-27 09:06] LABS: CREATININE 0.8 mg/dL (0.55-1.3)
[2022-02-27 09:07] LABS: BILIRUBIN,TOTAL 0.3 mg/dL (0.2-1); TOT PROT 7.1 g/dl (6.4-8.2)
[2022-02-27] MEDS ORDERED: DEXTROSE 5%-WATER 100 ML IVPB ONE (10:20)
[2022-02-27] MEDS: CEFTRIAXONE 2 GM in DEXTROSE 5%-WATER 2 GM/100 ML BAG IVPB SCH (10:35)
[2022-02-27] MEDS: FUROSEMIDE 40 MG/4 ML INJECTABLE VIAL IVPUSH SCH (10:36)
[2022-02-27] MEDS: LISINOPRIL 20 MG TABLET PO SCH (10:36)
[2022-02-27] MEDS: PANTOPRAZOLE 40 MG TABLET PO SCH (10:36)
[2022-02-27] MEDS: CLOPIDOGREL BISULFATE 75 MG TABLET (FP) PO SCH (10:37)
[2022-02-27] MEDS: ASPIRIN 81 MG CHEWABLE TABLETS PO SCH (10:37)
[2022-02-27] MEDS: MULTIVITAMINS (DAILY MVI) TABLET (FP) PO SCH (10:37)
[2022-02-27] MEDS: ENOXAPARIN NA (PORCINE) 40 MG/0.4 ML DISP.SYRIN SQ SCH (10:38)
[2022-02-27] MEDS: DRONABINOL 5 MG CAPSULE PO SCH ×2 (11:40→18:00)
[2022-02-27 14:37] LABS: N-TERMINAL BNP 2622.1 pg/ml (5-125)
[2022-02-27] MEDS: ATORVASTATIN CA 40 MG TABLET (FP) PO SCH (21:58)
[2022-02-28] MEDS ORDERED: POTASSIUM CHLORIDE TABS 20 MEQ TABLET.ER (FP) PO ONE (05:17)
[2022-02-28] MEDS: INSULIN SLIDING SCALE (NOVOLOG) 1 VIAL SQ SCH ×4 (06:33→21:42)
[2022-02-28] MEDS: CEFTRIAXONE 2 GM in DEXTROSE 5%-WATER 2 GM/100 ML BAG IVPB SCH (10:06)
[2022-02-28] MEDS: ENOXAPARIN NA (PORCINE) 40 MG/0.4 ML DISP.SYRIN SQ SCH (10:06)
[2022-02-28] MEDS: PANTOPRAZOLE 40 MG TABLET PO SCH (10:06)
[2022-02-28] MEDS: CLOPIDOGREL BISULFATE 75 MG TABLET (FP) PO SCH (10:07)
[2022-02-28] MEDS: LACTOBACILLUS ACIDOPHILUS 1 TABLET PO SCH (10:07)
[2022-02-28] MEDS: LISINOPRIL 20 MG TABLET PO SCH (10:07)
[2022-02-28] MEDS: MULTIVITAMINS (DAILY MVI) TABLET (FP) PO SCH (10:07)
[2022-02-28] MEDS: ASPIRIN 81 MG CHEWABLE TABLETS PO SCH (10:07)
[2022-02-28] MEDS: FUROSEMIDE 40 MG/4 ML INJECTABLE VIAL IVPUSH SCH (10:08)
[2022-02-28] MEDS ORDERED: DEXTROSE 5%-WATER 100 ML IVPB ONE (10:26)
[2022-02-28 11:03] LABS: BASO % 0.9 % (0-2.0); EOS % 5.5 % (0-4.5); HEMATOCRIT 25.1 % (32.4-45.2); HEMOGLOBIN 8.5 GM/dL (10.7-15.3); LYMPH % 18.9 % (8-40); MCH 30.9 pg (25.7-33.7); MCHC 33.8 g/dl (32.0-36.0); MEAN CELL VOLUME 91.2 fl (80-96); MEAN PLT VOLUME 9.3 fl (7.5-11.1); MONO % 6.5 % (3.8-10.2); NEUT % 68.2 % (42.8-82.8); PLATELET COUNT 349 10^3/uL (134-434); RBC 2.76 M/mm3 (3.60-5.2); RDW 13.5 % (11.6-15.6); WHITE BLOOD COUNT 7.4 K/mm3 (4.0-10.0)
[2022-02-28] MEDS: DRONABINOL 5 MG CAPSULE PO SCH ×2 (11:13→17:26)
[2022-02-28 11:21] LABS: CALCIUM 8.8 mg/dL (8.5-10.1)
[2022-02-28 11:22] LABS: ALBUMIN 2.2 g/dl (3.4-5.0); BLOOD UREA NITROGEN 13.9 mg/dL (7-18)
[2022-02-28 11:25] LABS: CREATININE 0.8 mg/dL (0.55-1.3); PHOSPHOROUS 2.8 mg/dL (2.5-4.9)
[2022-02-28 11:26] LABS: BILIRUBIN,TOTAL 0.3 mg/dL (0.2-1); TOT PROT 7.2 g/dl (6.4-8.2)
[2022-02-28] MEDS: ATORVASTATIN CA 40 MG TABLET (FP) PO SCH (21:42)
[2022-03-01] MEDS: INSULIN SLIDING SCALE (NOVOLOG) 1 VIAL SQ SCH ×4 (06:34→22:14)
[2022-03-01 08:51] LABS: HEMATOCRIT 25.5 % (32.4-45.2); HEMOGLOBIN 8.6 GM/dL (10.7-15.3); MCH 30.7 pg (25.7-33.7); MCHC 33.5 g/dl (32.0-36.0); MEAN CELL VOLUME 91.6 fl (80-96); MEAN PLT VOLUME 9.3 fl (7.5-11.1); PLATELET COUNT 378 10^3/uL (134-434); RBC 2.79 M/mm3 (3.60-5.2); RDW 13.6 % (11.6-15.6); WHITE BLOOD COUNT 8.6 K/mm3 (4.0-10.0)
[2022-03-01 09:17] LABS: BLOOD UREA NITROGEN 18.3 mg/dL (7-18)
[2022-03-01 09:20] LABS: CREATININE 0.8 mg/dL (0.55-1.3)
[2022-03-01] MEDS ORDERED: DEXTROSE 5%-WATER 100 ML IVPB ONE (10:13)
[2022-03-01] MEDS: FUROSEMIDE 40 MG/4 ML INJECTABLE VIAL IVPUSH SCH (10:16)
[2022-03-01] MEDS: ASPIRIN 81 MG CHEWABLE TABLETS PO SCH (10:16)
[2022-03-01] MEDS: ENOXAPARIN NA (PORCINE) 40 MG/0.4 ML DISP.SYRIN SQ SCH (10:16)
[2022-03-01] MEDS: CLOPIDOGREL BISULFATE 75 MG TABLET (FP) PO SCH (10:16)
[2022-03-01] MEDS: LACTOBACILLUS ACIDOPHILUS 1 TABLET PO SCH (10:16)
[2022-03-01] MEDS: DRONABINOL 5 MG CAPSULE PO SCH ×2 (10:16→17:08)
[2022-03-01] MEDS: PANTOPRAZOLE 40 MG TABLET PO SCH (10:17)
[2022-03-01] MEDS: LISINOPRIL 20 MG TABLET PO SCH (10:17)
[2022-03-01] MEDS: CEFTRIAXONE 2 GM in DEXTROSE 5%-WATER 2 GM/100 ML BAG IVPB SCH (10:17)
[2022-03-01] MEDS: MULTIVITAMINS (DAILY MVI) TABLET (FP) PO SCH (10:17)
[2022-03-01] MEDS ORDERED: POTASSIUM CHLORIDE TABS 20 MEQ TABLET.ER (FP) PO ONE (14:00)
[2022-03-01] MEDS: ATORVASTATIN CA 40 MG TABLET (FP) PO SCH (22:14)
[2022-03-02] MEDS: INSULIN SLIDING SCALE (NOVOLOG) 1 VIAL SQ SCH ×4 (06:24→21:41)
[2022-03-02 06:58] LABS: HEMATOCRIT 24.4 % (32.4-45.2); HEMOGLOBIN 8.4 GM/dL (10.7-15.3); MCH 31.3 pg (25.7-33.7); MCHC 34.6 g/dl (32.0-36.0); MEAN CELL VOLUME 90.4 fl (80-96); PLATELET COUNT 374 10^3/uL (134-434); RBC 2.69 M/mm3 (3.60-5.2); RDW 13.3 % (11.6-15.6); WHITE BLOOD COUNT 9.1 K/mm3 (4.0-10.0)
[2022-03-02 07:15] LABS: ALBUMIN 2.2 g/dl (3.4-5.0); CALCIUM 8.7 mg/dL (8.5-10.1)
[2022-03-02 07:16] LABS: BLOOD UREA NITROGEN 14.3 mg/dL (7-18)
[2022-03-02 07:18] LABS: CREATININE 0.7 mg/dL (0.55-1.3)
[2022-03-02 07:20] LABS: BILIRUBIN,TOTAL 0.5 mg/dL (0.2-1); TOT PROT 7.1 g/dl (6.4-8.2)
[2022-03-02] MEDS ORDERED: POTASSIUM CHLORIDE TABS 20 MEQ TABLET.ER (FP) PO ONE ×3 (07:29→12:00)
[2022-03-02] MEDS: ENOXAPARIN NA (PORCINE) 40 MG/0.4 ML DISP.SYRIN SQ SCH (11:18)
[2022-03-02] MEDS: LACTOBACILLUS ACIDOPHILUS 1 TABLET PO SCH (11:18)
[2022-03-02] MEDS: CLOPIDOGREL BISULFATE 75 MG TABLET (FP) PO SCH (11:18)
[2022-03-02] MEDS: ASPIRIN 81 MG CHEWABLE TABLETS PO SCH (11:18)
[2022-03-02] MEDS: FUROSEMIDE 40 MG/4 ML INJECTABLE VIAL IVPUSH SCH (11:18)
[2022-03-02] MEDS: CEFTRIAXONE 2 GM in DEXTROSE 5%-WATER 2 GM/100 ML BAG IVPB SCH (11:19)
[2022-03-02] MEDS: MULTIVITAMINS (DAILY MVI) TABLET (FP) PO SCH (11:19)
[2022-03-02] MEDS: PANTOPRAZOLE 40 MG TABLET PO SCH (11:19)
[2022-03-02] MEDS: LISINOPRIL 20 MG TABLET PO SCH (11:19)
[2022-03-02] MEDS: DRONABINOL 5 MG CAPSULE PO SCH ×2 (11:20→18:15)
[2022-03-02] MEDS: ATORVASTATIN CA 40 MG TABLET (FP) PO SCH (21:40)
[2022-03-03] MEDS: INSULIN SLIDING SCALE (NOVOLOG) 1 VIAL SQ SCH ×4 (06:33→21:45)
[2022-03-03 09:01] LABS: HEMATOCRIT 23.6 % (32.4-45.2); HEMOGLOBIN 8.1 GM/dL (10.7-15.3); MCH 30.9 pg (25.7-33.7); MCHC 34.2 g/dl (32.0-36.0); MEAN CELL VOLUME 90.2 fl (80-96); MEAN PLT VOLUME 9.2 fl (7.5-11.1); PLATELET COUNT 374 10^3/uL (134-434); RBC 2.62 M/mm3 (3.60-5.2); RDW 13.4 % (11.6-15.6)
[2022-03-03 09:19] LABS: CALCIUM 8.9 mg/dL (8.5-10.1)
[2022-03-03 09:23] LABS: CREATININE 0.6 mg/dL (0.55-1.3)
[2022-03-03] MEDS ORDERED: DEXTROSE 5%-WATER 100 ML IVPB ONE (10:09)
[2022-03-03] MEDS: CEFTRIAXONE 2 GM in DEXTROSE 5%-WATER 2 GM/100 ML BAG IVPB SCH (11:30)
[2022-03-03] MEDS: DRONABINOL 5 MG CAPSULE PO SCH ×2 (11:30→17:24)
[2022-03-03] MEDS: LISINOPRIL 20 MG TABLET PO SCH (11:30)
[2022-03-03] MEDS: FUROSEMIDE 40 MG/4 ML INJECTABLE VIAL IVPUSH SCH (11:30)
[2022-03-03] MEDS: LACTOBACILLUS ACIDOPHILUS 1 TABLET PO SCH (11:30)
[2022-03-03] MEDS: ENOXAPARIN NA (PORCINE) 40 MG/0.4 ML DISP.SYRIN SQ SCH (11:30)
[2022-03-03] MEDS: CLOPIDOGREL BISULFATE 75 MG TABLET (FP) PO SCH (11:30)
[2022-03-03] MEDS: MULTIVITAMINS (DAILY MVI) TABLET (FP) PO SCH (11:30)
[2022-03-03] MEDS: PANTOPRAZOLE 40 MG TABLET PO SCH (11:30)
[2022-03-03] MEDS: ASPIRIN 81 MG CHEWABLE TABLETS PO SCH (11:30)
[2022-03-03] MEDS: ATORVASTATIN CA 40 MG TABLET (FP) PO SCH (21:45)
[2022-03-04] MEDS: INSULIN SLIDING SCALE (NOVOLOG) 1 VIAL SQ SCH ×4 (06:32→22:12)
[2022-03-04 06:45] LABS: HEMATOCRIT 24.1 % (32.4-45.2); HEMOGLOBIN 8.2 GM/dL (10.7-15.3); MCH 30.9 pg (25.7-33.7); MCHC 34.2 g/dl (32.0-36.0); MEAN CELL VOLUME 90.3 fl (80-96); PLATELET COUNT 367 10^3/uL (134-434); RBC 2.67 M/mm3 (3.60-5.2); RDW 13.3 % (11.6-15.6); WHITE BLOOD COUNT 7.8 K/mm3 (4.0-10.0)
[2022-03-04 07:03] LABS: CALCIUM 9.1 mg/dL (8.5-10.1)
[2022-03-04 07:04] LABS: BLOOD UREA NITROGEN 14.1 mg/dL (7-18)
[2022-03-04 07:07] LABS: CREATININE 0.8 mg/dL (0.55-1.3)
[2022-03-04] MEDS ORDERED: POTASSIUM CHLORIDE TABS 20 MEQ TABLET.ER (FP) PO ONE ×2 (07:36→10:45)
[2022-03-04] MEDS ORDERED: DEXTROSE 5%-WATER 100 ML IVPB ONE (10:21)
[2022-03-04] MEDS: LACTOBACILLUS ACIDOPHILUS 1 TABLET PO SCH (10:27)
[2022-03-04] MEDS: LISINOPRIL 20 MG TABLET PO SCH (10:27)
[2022-03-04] MEDS: CEFTRIAXONE 2 GM in DEXTROSE 5%-WATER 2 GM/100 ML BAG IVPB SCH (10:27)
[2022-03-04] MEDS: PANTOPRAZOLE 40 MG TABLET PO SCH (10:27)
[2022-03-04] MEDS: CLOPIDOGREL BISULFATE 75 MG TABLET (FP) PO SCH (10:27)
[2022-03-04] MEDS: MULTIVITAMINS (DAILY MVI) TABLET (FP) PO SCH (10:27)
[2022-03-04] MEDS: ASPIRIN 81 MG CHEWABLE TABLETS PO SCH (10:28)
[2022-03-04] MEDS: ENOXAPARIN NA (PORCINE) 40 MG/0.4 ML DISP.SYRIN SQ SCH (10:28)
[2022-03-04] MEDS: FUROSEMIDE 40 MG/4 ML INJECTABLE VIAL IVPUSH SCH (10:50)
[2022-03-04] MEDS: DRONABINOL 5 MG CAPSULE PO SCH ×2 (11:23→16:56)
[2022-03-04] MEDS: ATORVASTATIN CA 40 MG TABLET (FP) PO SCH (22:12)
[2022-03-05] MEDS: INSULIN SLIDING SCALE (NOVOLOG) 1 VIAL SQ SCH ×4 (06:17→22:22)
[2022-03-05 08:59] LABS: HEMATOCRIT 26.1 % (32.4-45.2); HEMOGLOBIN 8.7 GM/dL (10.7-15.3); MCH 30.6 pg (25.7-33.7); MCHC 33.5 g/dl (32.0-36.0); MEAN CELL VOLUME 91.2 fl (80-96); MEAN PLT VOLUME 9.5 fl (7.5-11.1); PLATELET COUNT 432 10^3/uL (134-434); RBC 2.86 M/mm3 (3.60-5.2); RDW 13.5 % (11.6-15.6); WHITE BLOOD COUNT 8.9 K/mm3 (4.0-10.0)
[2022-03-05] MEDS ORDERED: DEXTROSE 5%-WATER 100 ML IVPB ONE (09:22)
[2022-03-05] MEDS: CLOPIDOGREL BISULFATE 75 MG TABLET (FP) PO SCH (09:24)
[2022-03-05] MEDS: LISINOPRIL 20 MG TABLET PO SCH (09:24)
[2022-03-05] MEDS: FUROSEMIDE 40 MG/4 ML INJECTABLE VIAL IVPUSH SCH (09:24)
[2022-03-05] MEDS: CEFTRIAXONE 2 GM in DEXTROSE 5%-WATER 2 GM/100 ML BAG IVPB SCH (09:24)
[2022-03-05] MEDS: ASPIRIN 81 MG CHEWABLE TABLETS PO SCH (09:24)
[2022-03-05] MEDS: PANTOPRAZOLE 40 MG TABLET PO SCH (09:24)
[2022-03-05] MEDS: MULTIVITAMINS (DAILY MVI) TABLET (FP) PO SCH (09:24)
[2022-03-05] MEDS: LACTOBACILLUS ACIDOPHILUS 1 TABLET PO SCH (09:24)
[2022-03-05] MEDS: ENOXAPARIN NA (PORCINE) 40 MG/0.4 ML DISP.SYRIN SQ SCH (09:25)
[2022-03-05 09:27] LABS: ALBUMIN 2.7 g/dl (3.4-5.0)
[2022-03-05 09:28] LABS: BLOOD UREA NITROGEN 15.9 mg/dL (7-18)
[2022-03-05 09:30] LABS: CREATININE 0.8 mg/dL (0.55-1.3); PHOSPHOROUS 3.1 mg/dL (2.5-4.9)
[2022-03-05 09:32] LABS: BILIRUBIN,TOTAL 0.3 mg/dL (0.2-1); TOT PROT 7.8 g/dl (6.4-8.2)
[2022-03-05] MEDS: DRONABINOL 5 MG CAPSULE PO SCH ×2 (11:56→16:40)
[2022-03-05] MEDS: ATORVASTATIN CA 40 MG TABLET (FP) PO SCH (22:19)
[2022-03-06] MEDS: INSULIN SLIDING SCALE (NOVOLOG) 1 VIAL SQ SCH ×4 (06:31→21:51)
[2022-03-06 08:52] LABS: HEMATOCRIT 27.6 % (32.4-45.2); HEMOGLOBIN 9.4 GM/dL (10.7-15.3); MCH 30.6 pg (25.7-33.7); MCHC 33.9 g/dl (32.0-36.0); MEAN CELL VOLUME 90.2 fl (80-96); MEAN PLT VOLUME 9.3 fl (7.5-11.1); PLATELET COUNT 436 10^3/uL (134-434); RBC 3.06 M/mm3 (3.60-5.2); RDW 13.5 % (11.6-15.6); WHITE BLOOD COUNT 8.8 K/mm3 (4.0-10.0)
[2022-03-06 09:18] LABS: CALCIUM 9.1 mg/dL (8.5-10.1)
[2022-03-06 09:22] LABS: CREATININE 0.7 mg/dL (0.55-1.3)
[2022-03-06] MEDS ORDERED: DEXTROSE 5%-WATER 100 ML IVPB ONE (09:24)
[2022-03-06] MEDS: CEFTRIAXONE 2 GM in DEXTROSE 5%-WATER 2 GM/100 ML BAG IVPB SCH (09:31)
[2022-03-06] MEDS: PANTOPRAZOLE 40 MG TABLET PO SCH (09:31)
[2022-03-06] MEDS: ASPIRIN 81 MG CHEWABLE TABLETS PO SCH (09:31)
[2022-03-06] MEDS: LACTOBACILLUS ACIDOPHILUS 1 TABLET PO SCH (09:31)
[2022-03-06] MEDS: CLOPIDOGREL BISULFATE 75 MG TABLET (FP) PO SCH (09:31)
[2022-03-06] MEDS: FUROSEMIDE 40 MG/4 ML INJECTABLE VIAL IVPUSH SCH (09:31)
[2022-03-06] MEDS: LISINOPRIL 20 MG TABLET PO SCH (09:31)
[2022-03-06] MEDS: ENOXAPARIN NA (PORCINE) 40 MG/0.4 ML DISP.SYRIN SQ SCH (09:31)
[2022-03-06] MEDS: MULTIVITAMINS (DAILY MVI) TABLET (FP) PO SCH (09:31)
[2022-03-06] MEDS ORDERED: ONDANSETRON 4 MG/2 ML VIAL IVPUSH PRN (09:44)
[2022-03-06] MEDS ORDERED: ONDANSETRON 4 MG/2 ML VIAL ONE (09:45)
[2022-03-06] MEDS: DRONABINOL 5 MG CAPSULE PO SCH ×2 (11:21→17:15)
[2022-03-06] MEDS: ATORVASTATIN CA 40 MG TABLET (FP) PO SCH (21:51)
[2022-03-07] MEDS: INSULIN SLIDING SCALE (NOVOLOG) 1 VIAL SQ SCH (06:30)
[2022-03-07 07:07] LABS: HEMATOCRIT 28.4 % (32.4-45.2); HEMOGLOBIN 9.8 GM/dL (10.7-15.3); MCHC 34.5 g/dl (32.0-36.0); MEAN CELL VOLUME 89.7 fl (80-96); MEAN PLT VOLUME 9.1 fl (7.5-11.1); PLATELET COUNT 452 10^3/uL (134-434); RBC 3.17 M/mm3 (3.60-5.2); RDW 13.3 % (11.6-15.6); WHITE BLOOD COUNT 9.3 K/mm3 (4.0-10.0)
[2022-03-07 07:37] LABS: BLOOD UREA NITROGEN 14.9 mg/dL (7-18); CALCIUM 9.4 mg/dL (8.5-10.1); MAGNESIUM 1.9 mg/dL (1.8-2.4)
[2022-03-07 07:38] LABS: ALBUMIN 2.6 g/dl (3.4-5.0)
[2022-03-07 07:40] LABS: CREATININE 0.6 mg/dL (0.55-1.3); PHOSPHOROUS 3.6 mg/dL (2.5-4.9)
[2022-03-07 07:42] LABS: BILIRUBIN,TOTAL 0.5 mg/dL (0.2-1); TOT PROT 7.3 g/dl (6.4-8.2)
[2022-03-07] MEDS ORDERED: DEXTROSE 5%-WATER 100 ML IVPB ONE (09:40)
[2022-03-07 10:03] VITALS: BP 128/73; PULSE 97; TEMP 97.8
== END 2022-03-07 12:11 | disposition home or self-care (01) | DRG 270 ==
LOC: JER 20:41 → JERBED 23:35 → J8W 02-08 19:27 → JICU 02-15 22:27 → J4S 02-24 17:34
PROVIDERS: ADMIT Internal Medicine; ATTEND Internal Medicine
PROC: 04CL3ZZ Extirpation of Matter from Left Femoral Artery, Percutaneous Approach (ICD-10-PCS; 2022-02-12)
PROC: 04CQ3ZZ Extirpation of Matter from Left Anterior Tibial Artery, Percutaneous Approach (ICD-10-PCS; 2022-02-12)
PROC: 047L3ZZ Dilation of Left Femoral Artery, Percutaneous Approach (ICD-10-PCS; 2022-02-12)
PROC: 047Q3ZZ Dilation of Left Anterior Tibial Artery, Percutaneous Approach (ICD-10-PCS; 2022-02-12)
PROC: B41DZZZ Fluoroscopy of Aorta and Bilateral Lower Extremity Arteries (ICD-10-PCS; 2022-02-12)
PROC: 30233N1 Transfusion of Nonautologous Red Blood Cells into Peripheral Vein, Percutaneous Approach (ICD-10-PCS; 2022-02-15)
PROC: 02HV33Z Insertion of Infusion Device into Superior Vena Cava, Percutaneous Approach (ICD-10-PCS; principal; 2022-03-05)
PROC: B518ZZA Fluoroscopy of Superior Vena Cava, Guidance (ICD-10-PCS; 2022-03-05)
DX: E11.51 Type 2 diabetes mellitus with diabetic peripheral angiopathy without gangrene (principal); J96.01 Acute respiratory failure with hypoxia; K72.00 Acute and subacute hepatic failure without coma; J69.0 Pneumonitis due to inhalation of food and vomit; L97.528 Non-pressure chronic ulcer of other part of left foot with other specified severity; M86.8X7 Other osteomyelitis, ankle and foot; E87.2 Acidosis; J98.11 Atelectasis; J90 Pleural effusion, not elsewhere classified; J95.84 Transfusion-related acute lung injury (TRALI); N39.0 Urinary tract infection, site not specified; L02.612 Cutaneous abscess of left foot; N17.9 Acute kidney failure, unspecified; D62 Acute posthemorrhagic anemia; I50.1 Left ventricular failure, unspecified; E87.3 Alkalosis; E11.69 Type 2 diabetes mellitus with other specified complication; E11.621 Type 2 diabetes mellitus with foot ulcer; E11.65 Type 2 diabetes mellitus with hyperglycemia; E78.5 Hyperlipidemia, unspecified; F32.A Depression, unspecified; E87.6 Hypokalemia; I10 Essential (primary) hypertension; B95.2 Enterococcus as the cause of diseases classified elsewhere; I25.119 Atherosclerotic heart disease of native coronary artery with unspecified angina pectoris; B95.1 Streptococcus, group B, as the cause of diseases classified elsewhere; L03.032 Cellulitis of left toe; D64.9 Anemia, unspecified; B95.61 Methicillin susceptible Staphylococcus aureus infection as the cause of diseases classified elsewhere; H54.40 Blindness, one eye, unspecified eye; E11.40 Type 2 diabetes mellitus with diabetic neuropathy, unspecified; I77.1 Stricture of artery; K80.20 Calculus of gallbladder without cholecystitis without obstruction; Y84.8 Other medical procedures as the cause of abnormal reaction of the patient, or of later complication, without mention of misadventure at the time of the procedure; Z86.73 Personal history of transient ischemic attack (TIA), and cerebral infarction without residual deficits
CPT/HCPCS: 0241U-QW; 36415; 36430; 36569; 36600; 71045-TC-FY; 73630-TC-LT; 73720-LT; 74176-TC; 75635-TC; 76000-TC-FY; 76705-TC; 77001-TC-FY; 80048; 80053; 81003; 82550; 82553; 82803; 82962; 83036; 83605; 83690; 83735; 83835; 83880; 84100; 84300; 84443; 85025; 85027; 85610; 85651; 85730; 86140; 86704; 86709; 86803; 86850; 86900; 86901; 86922; 87040; 87070; 87077; 87086; 87186; 87205; 87340; 87517; 93005; 93010; 93306-TC; 93971-TC; 94640; 94660; 94760; 94761; 97116-GP; 97161-GP; 99285-25; C1751; C9803-CS; J1644; P9058; Q9967; U0003; U0005

== ENCOUNTER 2022-03-08 15:06 | Inpatient (IN) | payer MEDICARE, OTHER ==
[2022-03-08 16:30] LABS: BASO % 1.5 % (0-2.0); EOS % 1.2 % (0-4.5); HEMATOCRIT 27.8 % (32.4-45.2); HEMOGLOBIN 9.6 GM/dL (10.7-15.3); LYMPH % 28.6 % (8-40); MCH 30.7 pg (25.7-33.7); MCHC 34.3 g/dl (32.0-36.0); MEAN CELL VOLUME 89.5 fl (80-96); MEAN PLT VOLUME 8.8 fl (7.5-11.1); MONO % 10.3 % (3.8-10.2); NEUT % 58.4 % (42.8-82.8); PLATELET COUNT 387 10^3/uL (134-434); RBC 3.11 M/mm3 (3.60-5.2); RDW 13.4 % (11.6-15.6); WHITE BLOOD COUNT 8.4 K/mm3 (4.0-10.0)
[2022-03-08 16:33] LABS: EPI CELLS 2 /uL (0-25.1); HYALINE CASTS 1 /uL (0-3.1); URINE APPEARANCE CLEAR; URINE BACTERIA 2 /uL (0-1359); URINE BILIRUBIN NEGATIVE (NEGATIVE); URINE COLOR YELLOW; URINE GLUCOSE (UA) NEGATIVE (NEGATIVE); URINE KETONE TRACE (NEGATIVE); URINE LEUK ESTERASE NEGATIVE (NEGATIVE); URINE NITRITE NEGATIVE (NEGATIVE); URINE PROTEIN 2+ (NEGATIVE); URINE RBC 10 /uL (0-23.9); URINE UROBILINOGEN 0.2 mg/dL (0.2-1.0); URINE WBC 4 /uL (0-25.8)
[2022-03-08 17:10] LABS: CALCIUM 9.3 mg/dL (8.5-10.1)
[2022-03-08 17:11] LABS: ALBUMIN 2.8 g/dl (3.4-5.0); BLOOD UREA NITROGEN 20.4 mg/dL (7-18)
[2022-03-08 17:14] LABS: CREATININE 0.8 mg/dL (0.55-1.3); PHOSPHOROUS 3.2 mg/dL (2.5-4.9)
[2022-03-08 17:15] LABS: BILIRUBIN,TOTAL 0.7 mg/dL (0.2-1); TOT PROT 7.6 g/dl (6.4-8.2)
[2022-03-08] MEDS ORDERED: PATIENT'S OWN MEDICATION (NON-FORMULARY) (Ceftriaxone 2 GM Vial) IVPB SCH (22:00)
[2022-03-08] MEDS: CEFTRIAXONE 2 GM/100 ML BAG IVPB SCH (22:15)
[2022-03-08] MEDS: INSULIN SLIDING SCALE (NOVOLOG) 1 VIAL SQ SCH (22:39)
[2022-03-08] MEDS ORDERED: CLOPIDOGREL BISULFATE 75 MG TABLET (FP) ONE (22:56)
[2022-03-08] MEDS ORDERED: LISINOPRIL 20 MG TABLET ONE (22:56)
[2022-03-08] MEDS ORDERED: ASPIRIN 81 MG CHEWABLE TABLETS ONE (22:56)
[2022-03-08] MEDS ORDERED: ATORVASTATIN CA 40 MG TABLET (FP) ONE (22:56)
[2022-03-08] MEDS: CLOPIDOGREL BISULFATE 75 MG TABLET (FP) PO SCH (23:09)
[2022-03-08] MEDS: ASPIRIN 81 MG CHEWABLE TABLETS PO SCH (23:09)
[2022-03-08] MEDS: LISINOPRIL 20 MG TABLET PO SCH (23:09)
[2022-03-08] MEDS: ATORVASTATIN CA 40 MG TABLET (FP) PO SCH (23:09)
[2022-03-09] MEDS ORDERED: PANTOPRAZOLE 40 MG TABLET PO ONE ×2 (00:12→09:27)
[2022-03-09] MEDS ORDERED: CEFTRIAXONE 2 GM/100 ML BAG IVPB ONE ×2 (00:12→09:28)
[2022-03-09] MEDS: PANTOPRAZOLE 40 MG TABLET PO SCH ×2 (00:13→10:08)
[2022-03-09] MEDS: INSULIN SLIDING SCALE (NOVOLOG) 1 VIAL SQ SCH ×4 (09:00→22:04)
[2022-03-09 09:01] LABS: BASO % 1.1 % (0-2.0); EOS % 1.7 % (0-4.5); HEMOGLOBIN 9.2 GM/dL (10.7-15.3); LYMPH % 32.3 % (8-40); MCH 30.6 pg (25.7-33.7); MCHC 34.1 g/dl (32.0-36.0); MEAN CELL VOLUME 89.7 fl (80-96); MEAN PLT VOLUME 9.7 fl (7.5-11.1); MONO % 9.4 % (3.8-10.2); NEUT % 55.5 % (42.8-82.8); PLATELET COUNT 349 10^3/uL (134-434); RBC 3.01 M/mm3 (3.60-5.2); RDW 13.2 % (11.6-15.6); WHITE BLOOD COUNT 7.6 K/mm3 (4.0-10.0)
[2022-03-09] MEDS ORDERED: LISINOPRIL 20 MG TABLET ONE (09:27)
[2022-03-09] MEDS ORDERED: ASPIRIN 81 MG CHEWABLE TABLETS ONE (09:28)
[2022-03-09] MEDS ORDERED: CLOPIDOGREL BISULFATE 75 MG TABLET (FP) ONE (09:28)
[2022-03-09] MEDS ORDERED: ENOXAPARIN NA (PORCINE) 40 MG/0.4 ML DISP.SYRIN SQ ONE (09:29)
[2022-03-09 09:45] LABS: BLOOD UREA NITROGEN 24.3 mg/dL (7-18)
[2022-03-09 09:46] LABS: ALBUMIN 2.6 g/dl (3.4-5.0); MAGNESIUM 2.1 mg/dL (1.8-2.4)
[2022-03-09 09:47] LABS: PHOSPHOROUS 3.2 mg/dL (2.5-4.9)
[2022-03-09 09:48] LABS: BILIRUBIN,TOTAL 0.5 mg/dL (0.2-1); CREATININE 0.8 mg/dL (0.55-1.3)
[2022-03-09] MEDS: ASPIRIN 81 MG CHEWABLE TABLETS PO SCH (10:07)
[2022-03-09] MEDS: CEFTRIAXONE 2 GM/100 ML BAG IVPB SCH (10:08)
[2022-03-09] MEDS: ENOXAPARIN NA (PORCINE) 40 MG/0.4 ML DISP.SYRIN SQ SCH (10:08)
[2022-03-09] MEDS: CLOPIDOGREL BISULFATE 75 MG TABLET (FP) PO SCH (10:08)
[2022-03-09] MEDS: LISINOPRIL 20 MG TABLET PO SCH (10:08)
[2022-03-10] MEDS ORDERED: ATORVASTATIN CA 40 MG TABLET (FP) ONE (02:26)
[2022-03-10] MEDS: ATORVASTATIN CA 40 MG TABLET (FP) PO SCH ×2 (06:34→23:29)
[2022-03-10] MEDS: INSULIN SLIDING SCALE (NOVOLOG) 1 VIAL SQ SCH ×4 (07:28→23:29)
[2022-03-10 08:45] LABS: HEMATOCRIT 27.1 % (32.4-45.2); HEMOGLOBIN 9.4 GM/dL (10.7-15.3); MCHC 34.6 g/dl (32.0-36.0); MEAN CELL VOLUME 89.5 fl (80-96); MEAN PLT VOLUME 8.9 fl (7.5-11.1); PLATELET COUNT 345 10^3/uL (134-434); RBC 3.03 M/mm3 (3.60-5.2); RDW 13.4 % (11.6-15.6); WHITE BLOOD COUNT 7.8 K/mm3 (4.0-10.0)
[2022-03-10 09:19] LABS: BLOOD UREA NITROGEN 18.4 mg/dL (7-18); CALCIUM 9.4 mg/dL (8.5-10.1); MAGNESIUM 2.1 mg/dL (1.8-2.4)
[2022-03-10 09:22] LABS: CREATININE 0.7 mg/dL (0.55-1.3); PHOSPHOROUS 3.2 mg/dL (2.5-4.9)
[2022-03-10] MEDS: CLOPIDOGREL BISULFATE 75 MG TABLET (FP) PO SCH (11:10)
[2022-03-10] MEDS: LISINOPRIL 20 MG TABLET PO SCH (11:10)
[2022-03-10] MEDS: PANTOPRAZOLE 40 MG TABLET PO SCH (11:10)
[2022-03-10] MEDS: ASPIRIN 81 MG CHEWABLE TABLETS PO SCH (11:10)
[2022-03-10] MEDS: ENOXAPARIN NA (PORCINE) 40 MG/0.4 ML DISP.SYRIN SQ SCH (11:10)
[2022-03-10] MEDS ORDERED: CEFTRIAXONE 2 GM in DEXTROSE 5%-WATER 100 ML IVPB SCH (11:42)
[2022-03-10] MEDS: CEFTRIAXONE 2 GM/100 ML BAG IVPB SCH (12:38)
[2022-03-10] MEDS ORDERED: DEXTROSE 5%-WATER 100 ML IVPB ONE (12:42)
[2022-03-10] MEDS: CEFTRIAXONE 2 GM in DEXTROSE 5%-WATER 100 ML IVPB SCH (12:46)
[2022-03-10] MEDS ORDERED: TAMSULOSIN HCL 0.4 MG CAP PO ONE (12:58)
[2022-03-10 14:56] VITALS: BMI 22.6
[2022-03-10] MEDS ORDERED: POTASSIUM CHLORIDE TABS 20 MEQ TABLET.ER (FP) PO ONE (16:49)
[2022-03-10] MEDS ORDERED: INSULIN (NOVOLOG) ASPART 100 UNITS/ML 10ML VIAL ONE (21:09)
[2022-03-11] MEDS: INSULIN SLIDING SCALE (NOVOLOG) 1 VIAL SQ SCH ×4 (07:09→22:18)
[2022-03-11] MEDS ORDERED: DEXTROSE 5%-WATER 100 ML IVPB ONE (08:14)
[2022-03-11 08:31] LABS: HEMATOCRIT 27.2 % (32.4-45.2); HEMOGLOBIN 9.4 GM/dL (10.7-15.3); MCH 30.9 pg (25.7-33.7); MCHC 34.6 g/dl (32.0-36.0); MEAN CELL VOLUME 89.3 fl (80-96); MEAN PLT VOLUME 9.3 fl (7.5-11.1); PLATELET COUNT 310 10^3/uL (134-434); RBC 3.05 M/mm3 (3.60-5.2); RDW 13.3 % (11.6-15.6); WHITE BLOOD COUNT 6.1 K/mm3 (4.0-10.0)
[2022-03-11 08:49] LABS: CALCIUM 9.4 mg/dL (8.5-10.1)
[2022-03-11 08:50] LABS: BLOOD UREA NITROGEN 13.6 mg/dL (7-18); MAGNESIUM 2.2 mg/dL (1.8-2.4)
[2022-03-11 08:53] LABS: CREATININE 0.6 mg/dL (0.55-1.3); PHOSPHOROUS 3.8 mg/dL (2.5-4.9)
[2022-03-11] MEDS: ENOXAPARIN NA (PORCINE) 40 MG/0.4 ML DISP.SYRIN SQ SCH (09:29)
[2022-03-11] MEDS: LISINOPRIL 20 MG TABLET PO SCH (09:29)
[2022-03-11] MEDS: ASPIRIN 81 MG CHEWABLE TABLETS PO SCH (09:29)
[2022-03-11] MEDS: CLOPIDOGREL BISULFATE 75 MG TABLET (FP) PO SCH (09:29)
[2022-03-11] MEDS: PANTOPRAZOLE 40 MG TABLET PO SCH (09:29)
[2022-03-11] MEDS: CEFTRIAXONE 2 GM in DEXTROSE 5%-WATER 100 ML IVPB SCH (10:00)
[2022-03-11] MEDS: MULTIVITAMINS (DAILY MVI) TABLET (FP) PO SCH (10:56)
[2022-03-11] MEDS: ATORVASTATIN CA 40 MG TABLET (FP) PO SCH (22:18)
[2022-03-12] MEDS: INSULIN SLIDING SCALE (NOVOLOG) 1 VIAL SQ SCH ×4 (06:12→22:00)
[2022-03-12] MEDS ORDERED: DEXTROSE 5%-WATER 100 ML IVPB ONE (09:26)
[2022-03-12 09:27] LABS: HEMATOCRIT 29.3 % (32.4-45.2); MCH 30.6 pg (25.7-33.7); MCHC 34.2 g/dl (32.0-36.0); MEAN CELL VOLUME 89.5 fl (80-96); MEAN PLT VOLUME 9.4 fl (7.5-11.1); PLATELET COUNT 323 10^3/uL (134-434); RBC 3.27 M/mm3 (3.60-5.2); RDW 13.3 % (11.6-15.6); WHITE BLOOD COUNT 6.6 K/mm3 (4.0-10.0)
[2022-03-12] MEDS: ENOXAPARIN NA (PORCINE) 40 MG/0.4 ML DISP.SYRIN SQ SCH (09:50)
[2022-03-12] MEDS: MULTIVITAMINS (DAILY MVI) TABLET (FP) PO SCH (09:53)
[2022-03-12] MEDS: LISINOPRIL 20 MG TABLET PO SCH (09:53)
[2022-03-12] MEDS: CLOPIDOGREL BISULFATE 75 MG TABLET (FP) PO SCH (09:54)
[2022-03-12] MEDS: PANTOPRAZOLE 40 MG TABLET PO SCH (09:54)
[2022-03-12] MEDS: ASPIRIN 81 MG CHEWABLE TABLETS PO SCH (09:54)
[2022-03-12] MEDS: CEFTRIAXONE 2 GM in DEXTROSE 5%-WATER 100 ML IVPB SCH (09:56)
[2022-03-12 10:15] LABS: BLOOD UREA NITROGEN 11.4 mg/dL (7-18); CALCIUM 9.5 mg/dL (8.5-10.1)
[2022-03-12 10:18] LABS: CREATININE 0.7 mg/dL (0.55-1.3)
[2022-03-12] MEDS ORDERED: SODIUM CHLORIDE FOR INHALATION 3 ML VIAL.NEB IH ONE (16:03)
[2022-03-12] MEDS: TAMSULOSIN HCL 0.4 MG CAP PO SCH (21:54)
[2022-03-12] MEDS: ATORVASTATIN CA 40 MG TABLET (FP) PO SCH (21:54)
[2022-03-13] MEDS: INSULIN SLIDING SCALE (NOVOLOG) 1 VIAL SQ SCH ×4 (06:12→23:19)
[2022-03-13 08:56] LABS: HEMATOCRIT 25.1 % (32.4-45.2); HEMOGLOBIN 8.5 GM/dL (10.7-15.3); MCH 30.5 pg (25.7-33.7); MCHC 33.8 g/dl (32.0-36.0); MEAN CELL VOLUME 90.2 fl (80-96); MEAN PLT VOLUME 9.8 fl (7.5-11.1); PLATELET COUNT 296 10^3/uL (134-434); RBC 2.78 M/mm3 (3.60-5.2); RDW 13.3 % (11.6-15.6); WHITE BLOOD COUNT 6.5 K/mm3 (4.0-10.0)
[2022-03-13] MEDS ORDERED: DEXTROSE 5%-WATER 100 ML IVPB ONE (09:15)
[2022-03-13 09:31] LABS: BLOOD UREA NITROGEN 13.5 mg/dL (7-18); CALCIUM 9.5 mg/dL (8.5-10.1)
[2022-03-13 09:34] LABS: CREATININE 0.8 mg/dL (0.55-1.3)
[2022-03-13] MEDS: CEFTRIAXONE 2 GM in DEXTROSE 5%-WATER 100 ML IVPB SCH (09:49)
[2022-03-13] MEDS: LISINOPRIL 20 MG TABLET PO SCH (09:50)
[2022-03-13] MEDS: MULTIVITAMINS (DAILY MVI) TABLET (FP) PO SCH (09:50)
[2022-03-13] MEDS: ENOXAPARIN NA (PORCINE) 40 MG/0.4 ML DISP.SYRIN SQ SCH (09:50)
[2022-03-13] MEDS: PANTOPRAZOLE 40 MG TABLET PO SCH (09:50)
[2022-03-13] MEDS: CLOPIDOGREL BISULFATE 75 MG TABLET (FP) PO SCH (09:51)
[2022-03-13] MEDS: ASPIRIN 81 MG CHEWABLE TABLETS PO SCH (09:51)
[2022-03-13] MEDS: TAMSULOSIN HCL 0.4 MG CAP PO SCH (23:13)
[2022-03-13] MEDS: ATORVASTATIN CA 40 MG TABLET (FP) PO SCH (23:13)
[2022-03-14] MEDS: INSULIN SLIDING SCALE (NOVOLOG) 1 VIAL SQ SCH ×3 (06:53→16:48)
[2022-03-14] MEDS ORDERED: DEXTROSE 5%-WATER 100 ML IVPB ONE (10:42)
[2022-03-14] MEDS: PANTOPRAZOLE 40 MG TABLET PO SCH (11:03)
[2022-03-14] MEDS: ENOXAPARIN NA (PORCINE) 40 MG/0.4 ML DISP.SYRIN SQ SCH (11:03)
[2022-03-14] MEDS: CEFTRIAXONE 2 GM in DEXTROSE 5%-WATER 100 ML IVPB SCH (11:03)
[2022-03-14] MEDS: LISINOPRIL 20 MG TABLET PO SCH (11:04)
[2022-03-14] MEDS: ASPIRIN 81 MG CHEWABLE TABLETS PO SCH (11:04)
[2022-03-14] MEDS: CLOPIDOGREL BISULFATE 75 MG TABLET (FP) PO SCH (11:04)
[2022-03-14] MEDS: MULTIVITAMINS (DAILY MVI) TABLET (FP) PO SCH (11:04)
[2022-03-14 11:15] VITALS: BP 115/66; PULSE 106; TEMP 98.5
== END 2022-03-14 17:45 | disposition home or self-care (01) | DRG 696 ==
LOC: JER 15:06 → JERBED 19:12 → J7W 03-10 03:32
PROVIDERS: ADMIT Internal Medicine; ATTEND Internal Medicine
DX: R33.9 Retention of urine, unspecified (principal); M86.8X7 Other osteomyelitis, ankle and foot; J90 Pleural effusion, not elsewhere classified; J98.11 Atelectasis; N17.9 Acute kidney failure, unspecified; L02.419 Cutaneous abscess of limb, unspecified; F41.8 Other specified anxiety disorders; E11.42 Type 2 diabetes mellitus with diabetic polyneuropathy; Z86.73 Personal history of transient ischemic attack (TIA), and cerebral infarction without residual deficits; I10 Essential (primary) hypertension; E78.5 Hyperlipidemia, unspecified; D64.9 Anemia, unspecified; H54.40 Blindness, one eye, unspecified eye; E11.65 Type 2 diabetes mellitus with hyperglycemia; E11.69 Type 2 diabetes mellitus with other specified complication; I25.10 Atherosclerotic heart disease of native coronary artery without angina pectoris; K59.00 Constipation, unspecified; E88.09 Other disorders of plasma-protein metabolism, not elsewhere classified; E11.51 Type 2 diabetes mellitus with diabetic peripheral angiopathy without gangrene; K80.80 Other cholelithiasis without obstruction
CPT/HCPCS: 0241U-QW; 36415; 74018-TC-FY; 74176-TC; 80048; 80053; 81003; 82728; 82962; 83036; 83540; 83550; 83690; 83735; 84100; 85025; 85027; 87086; 93005; 93010; 97116-GP; 97161-GP; 99285-25